=== PATIENT | female | born 1970 | race Caucasian/White ===

== ENCOUNTER 2016-03-30 21:07 | Emergency (ER) | payer MEDICAID ==
--- NOTE | 2016-03-30 21:18 | ER Document Report ---
ED Medical Screen (RME) - General Stated Complaint: FALL/LEFT LEG INJURY Notes: Patient fell striking her left knee on the couch. Pain to that area since. I greeted and performed a rapid initial assessment of this patient. Comprehensive ED assessment and evaluation of the patient, analysis of test results and completion of the medical decision making process will be conducted by additional ED providers. TRAVEL OUTSIDE OF THE [place] IN LAST 30 DAYS: No - Related Data Allergies/Adverse Reactions: morphine [Morphine] Allergy (Verified 10/30/15 00:13) nitrofurantoin [From Macrobid] Allergy (Verified 05/17/15 17:28) nitrofurantoin macrocrystalline [From Macrobid] Allergy (Verified 05/17/15 17:28 ) Sulfa (Sulfonamide Antibiotics) Allergy (Verified 05/17/15 17:28) sulfamethoxazole [From Bactrim] Allergy (Verified 05/17/15 17:28) trimethoprim [From Bactrim] Allergy (Verified 05/17/15 17:28) Past Medical History - Past Medical History Cardiac Medical History: Reports: Hx Hypertension Endocrine Medical History: Reports: Hx Diabetes Mellitus Type 2 GI Medical History: Reports: Hx Ulcer Past Surgical History: Reports: Hx Abdominal Surgery - GBP, Hx Cholecystectomy, Hx Gastric Bypass Surgery, Hx Tonsillectomy - Immunizations Immunizations up to date: Yes Hx Diphtheria, Pertussis, Tetanus Vaccination: Yes
[2016-03-30] MEDS ORDERED: KETOROLAC TROMETHAMINE 60 MG/2 ML SDV IM ONE (22:31)
--- NOTE | 2016-03-30 22:33 | ER Document Report ---
HPI - HPI Patient complains to provider of: knee pain Pain Level: 5 Context: Patient is a 46 year old female who presents to the ED complaining of left knee pain s/p trip and fall on 03/29 evening. Patient says she tripped over a toy and landed on the left knee on the medial aspect. She has 4/5 pain at rest and 5/5 pain with ambulation. She says she has not taken anything at home for pain b/c they didnt have any APAP or ibuprofen. Otherwise she has been icing it in the ED. Has not had any previous operation/injury to this knee. has been able to ambulate and bear weight Denies [facility] PCP is Dr. Joiner - REPRODUCTIVE Reproductive: DENIES: : - DERM Skin Color: Normal Past Medical History - General Information source: Patient - Social History Smoking Status: Unknown if Ever Smoked Family History: CAD Patient has suicidal ideation: No Patient has homicidal ideation: No - Past Medical History Cardiac Medical History: Reports: Hx Hypertension Endocrine Medical History: Reports: Hx Diabetes Mellitus Type 2 Renal/ Medical History: Denies: Hx Peritoneal Dialysis GI Medical History: Reports: Hx Ulcer Past Surgical History: Reports: Hx Abdominal Surgery - GBP, Hx Cholecystectomy, Hx Gastric Bypass Surgery, Hx Tonsillectomy - Immunizations Immunizations up to date: Yes Hx Diphtheria, Pertussis, Tetanus Vaccination: Yes Vertical Provider Document - CONSTITUTIONAL Agree With Documented VS: Yes Exam Limitations: No Limitations General Appearance: WD/WN, Mild Distress - INFECTION CONTROL TRAVEL OUTSIDE OF THE [place] IN LAST 30 DAYS: No - CARDIOVASCULAR Pulses: Normal: Dorsalis pedis Notes: Capillary refill < 2 seconds in ble digits - MUSCULOSKELETAL/EXTREMETIES Musculoskeletal/Extremeties: MAEW, FROM, Non-Tender, Tender - tenderness to palpation over the medial aspect of the knee, No Edema, Eccymosis - mild bruising over the medial aspect of the left knee Notes: NO evidence of internal knee injury. negative ant/post draw, -valgus/varus - NEURO Level of Consciousness: Awake, Alert, Appropriate Motor/Sensory: No Motor Deficit, No Sensory Deficit Course - Re-evaluation Re-evalutation: 03/30/16 22:42 given history, PE and xray findings, low index of suspicion for fracture or dislocation. patient educated on RICE as well as use of OTC NSAIDS. can follow up with Dr Joiner as needed - Diagnostic Test Radiology reviewed: Image reviewed - No evidence of fracture, Reports reviewed - Lucency of the proximal tibia called on xray but clinical no evidence of tenderness, bruising, swelling, also not where site of trauma Discharge - Discharge Clinical Impression: Knee pain Qualifiers: Laterality: left Chronicity: acute Qualified Code(s): M25.562 - Pain in left knee Condition: Good Disposition: HOME, SELF-CARE Instructions: Ice & Elevation ([facility]), Use of [id number] Ibuprofen ([facility]), Elevation & Warmth ([facility]) Prescriptions: Ibuprofen [Motrin 800 mg Tablet] 800 mg PO Q6HP PRN #30 tab PRN Reason: Referrals: NATALIIA JOINER DO [Primary Care Provider] - Follow up as needed
[2016-03-30 22:55] VITALS: BP 125/64
== END 2016-03-30 22:52 | disposition home or self-care (01) ==
LOC: ER 21:07
DX: M25.562 Pain in left knee (principal); W01.0XXA Fall on same level from slipping, tripping and stumbling without subsequent striking against object, initial encounter; I10 Essential (primary) hypertension; E11.9 Type 2 diabetes mellitus without complications; Z90.49 Acquired absence of other specified parts of digestive tract; Z98.84 Bariatric surgery status
CPT/HCPCS: 99283; 96372; 73562; J1885

== ENCOUNTER 2016-04-04 05:10 | Emergency (ER) | payer MEDICAID ==
[2016-04-04] MEDS ORDERED: IPRATROPIUM/ALBUTEROL 0.5-2.5 MG/3 ML AMPUL NEB ONE (05:26)
[2016-04-04] MEDS ORDERED: PREDNISONE 20 MG TABLET PO ONE (06:55)
[2016-04-04] MEDS ORDERED: ALBUTEROL SULFATE 0.083% NEB 2.5 MG/3 ML AMPUL NEB ONE (06:55)
--- NOTE | 2016-04-04 07:00 | ER Document Report ---
ED Respiratory Problem - General Information source: Patient TRAVEL OUTSIDE OF THE [place] IN LAST 30 DAYS: No - HPI Patient complains to provider of: Other - Difficulty Breathing Onset: Last week Duration: Continuous Context: Smoker Cough: Productive Sputum amount: Small Associated symptoms: Cough, Difficulty breathing, Wheezing - General Chief Complaint: Shortness Of Breath Stated Complaint: DIFFICULTY BREATHING Notes: Patient is a 46-year-old female, who is a current smoker, presenting to the emergency department with concerns of difficulty breathing. Patient has had a cough for the past few weeks, and she has been wheezing for the past week. Patient admits to productive cough with a small amount of sputum. Patient denies fever or any other symptoms at this time. Patient says that she feels better since receiving a breathing treatment here in the emergency department. (HORTENSIA DOWD) - Related Data Allergies/Adverse Reactions: morphine [Morphine] Allergy (Verified 04/04/16 05:11) nitrofurantoin [From Macrobid] Allergy (Verified 04/04/16 05:11) nitrofurantoin macrocrystalline [From Macrobid] Allergy (Verified 04/04/16 05:11 ) Sulfa (Sulfonamide Antibiotics) Allergy (Verified 04/04/16 05:11) sulfamethoxazole [From Bactrim] Allergy (Verified 04/04/16 05:11) trimethoprim [From Bactrim] Allergy (Verified 04/04/16 05:11) Past Medical History - General Information source: Patient - Social History Smoking Status: Current Every Day Smoker Cigarette use (# per day): Yes Lives with: Spouse/Significant other Family History: CAD Patient has suicidal ideation: No Patient has homicidal ideation: No - Past Medical History Cardiac Medical History: Reports: Hx Hypertension Pulmonary Medical History: Reports: Hx Asthma Endocrine Medical History: Reports: Hx Diabetes Mellitus Type 2 GI Medical History: Reports: Hx Ulcer Past Surgical History: Reports: Hx Abdominal Surgery - GBP, Hx Cholecystectomy, Hx Gastric Bypass Surgery, Hx Tonsillectomy - Immunizations Immunizations up to date: Yes Hx Diphtheria, Pertussis, Tetanus Vaccination: Yes Review of Systems - Review of Systems Constitutional: No symptoms reported EENT: No symptoms reported Cardiovascular: No symptoms reported Respiratory: See HPI, Cough, Wheezing Gastrointestinal: No symptoms reported Genitourinary: No symptoms reported Female Genitourinary: No symptoms reported Musculoskeletal: No symptoms reported Skin: No symptoms reported Hematologic/Lymphatic: No symptoms reported Neurological/Psychological: No symptoms reported -: Yes All other systems reviewed and negative Physical Exam - General General appearance: Alert - HEENT Head: Normocephalic, Atraumatic Eyes: Normal Pupils: PERRL - Respiratory Respiratory status: No respiratory distress Chest status: Nontender Breath sounds: Rhonchi, Wheezing - Diffuse wheezes - Cardiovascular Rhythm: Regular Heart sounds: Normal auscultation Murmur: No - Abdominal Inspection: Normal Distension: No distension Bowel sounds: Normal Tenderness: Nontender - Back Back: Normal, Nontender - Extremities General upper extremity: Normal inspection General lower extremity: Normal inspection - Neurological Neuro grossly intact: Yes Cognition: Normal Alize Coma Scale Eye Opening: Spontaneous Stryker Coma Scale Verbal: Oriented Stryker Coma Scale Motor: Obeys Commands Stryker Coma Scale Total: 15 Speech: Normal - Psychological Associated symptoms: Normal affect, Normal mood - Skin Skin Temperature: Warm Skin Moisture: Dry Skin Color: Normal Discharge - Discharge Clinical Impression: Bronchitis with bronchospasm Condition: Stable Disposition: HOME, SELF-CARE Additional Instructions: Bronchitis with Bronchospasm (Wheezing): You have bronchitis with bronchospasm (wheezing). Sometimes people develop wheezing with a chest cold. This occurs either because of an underlying tendency toward asthma or because the virus itself irritates the bronchial tubes. This irritation causes cough, shortness of breath, and wheezing. Emergency treatment of bronchospasm may include adrenaline shots or bronchodilator aerosol. You may feel lightheaded and have a rapid pulse for an hour or two. Rest and get plenty of fluids. At home, we'll treat you with a bronchodilator inhaler. Corticosteroids may be required for some patients. Until you recover, avoid chemical fumes, dusts, pollens, and exercising in very cold or dry air. If you smoke, stop now! Most cases of bronchitis get better without antibiotics. We prescribe antibiotics when we believe bacteria are damaging your airways, or if there's high risk the bronchitis will worsen into pneumonia. Increase your fluid intake. A cool mist humidifier may make your lungs more comfortable. An expectorant (cough medicine that loosens phlegm) can help. Repeated episodes of bronchitis and bronchospasm may result in lung damage -- for example, chronic bronchitis, recurrent pneumonias, or emphysema. If you develop a fever, increased wheezing, chest pain, or severe shortness of breath, you should contact the doctor immediately. START THE PREDNISONE TOMORROW. USE YOUR ALBUTEROL INHALERS FOR WHEEZING. DRINK PLENTY OF FLUIDS. TRY ROBITUSSIN-DM FOR COUGH. STOP SMOKING. FOLLOW UP WITH YOUR DOCTOR IF NOT IMPROVING. Prescriptions: Prednisone [Deltasone 10 mg Tablet] 10 mg PO ASDIR PRN #21 tablet PRN Reason: Scribe Attestation: 04/04/16 07:58 I personally performed the services described in the documentation, reviewed and edited the documentation which was dictated to the scribe in my presence, and it accurately records my words and actions. (TANA FREDERICK) Scribe Documentation - Scribe Written by Montse:: Hortensia Dowd 04/04/2016 0655 acting as scribe for :: Dante
[2016-04-04 07:41] VITALS: BP 138/95
== END 2016-04-04 08:05 | disposition home or self-care (01) ==
LOC: ER 05:10
DX: J40 Bronchitis, not specified as acute or chronic (principal); J45.909 Unspecified asthma, uncomplicated; R05 Cough; F17.210 Nicotine dependence, cigarettes, uncomplicated; I10 Essential (primary) hypertension; E11.9 Type 2 diabetes mellitus without complications; Z98.84 Bariatric surgery status
CPT/HCPCS: 94640 ×2; 99284; J7512; J7620

== ENCOUNTER 2016-04-05 06:41 | Inpatient (IN) | payer MEDICAID ==
--- NOTE | 2016-04-05 07:10 | ER Document Report ---
ED Respiratory Problem - General Mode of Arrival: Medic Information source: Patient TRAVEL OUTSIDE OF THE [place] IN LAST 30 DAYS: No - HPI Patient complains to provider of: Short of breath Onset: Other - last night Context: Hx asthma At home treatment: Inhaled steroids Associated symptoms: Other - see above <EUGENE BILLINGS - Last Filed: 04/05/16 07:18> <TANA FREDERICK - Last Filed: 04/05/16 08:50> - General Chief Complaint: Shortness Of Breath Stated Complaint: SHORTNESS OF BREATH Notes: 46 year old female with history of asthma and smoking presents to the ED via EMS complaining of difficulty breathing that worsened last night. Patient was seen in the ED yesterday for similar symptoms and was discharged after improving under instructions to take prednisone and continue inhaler treatment at home. Patient's states that the patient improved the 3 hours after leaving the ED, but her shortness of breath worsened last night. Patient admits to using the inhaler at home but to no relief. Patient is additionally complaining of wheezing and pain associated with breathing. Patient explains that the breathing treatment given by EMS have not helped. EMS reports that patient was at 94% on room air. (EUGENE BILLINGS) - Related Data Allergies/Adverse Reactions: morphine [Morphine] Allergy (Verified 04/04/16 05:11) nitrofurantoin [From Macrobid] Allergy (Verified 04/04/16 05:11) nitrofurantoin macrocrystalline [From Macrobid] Allergy (Verified 04/04/16 05:11 ) Sulfa (Sulfonamide Antibiotics) Allergy (Verified 04/04/16 05:11) sulfamethoxazole [From Bactrim] Allergy (Verified 04/04/16 05:11) trimethoprim [From Bactrim] Allergy (Verified 04/04/16 05:11) Past Medical History - General Information source: Patient - Social History Smoking Status: Current Every Day Smoker Family History: CAD - Past Medical History Cardiac Medical History: Reports: Hx Hypertension Pulmonary Medical History: Reports: Hx Asthma Endocrine Medical History: Reports: Hx Diabetes Mellitus Type 2 GI Medical History: Reports: Hx Ulcer Past Surgical History: Reports: Hx Abdominal Surgery - GBP, Hx Cholecystectomy, Hx Gastric Bypass Surgery, Hx Tonsillectomy - Immunizations Immunizations up to date: Yes Hx Diphtheria, Pertussis, Tetanus Vaccination: Yes <EUGENE BILLINGS - Last Filed: 04/05/16 07:18> Review of Systems - Review of Systems Constitutional: No symptoms reported EENT: No symptoms reported Cardiovascular: No symptoms reported Respiratory: See HPI, Hurts to breathe, Short of breath, Wheezing Gastrointestinal: No symptoms reported Genitourinary: No symptoms reported Female Genitourinary: No symptoms reported Musculoskeletal: No symptoms reported Skin: No symptoms reported Hematologic/Lymphatic: No symptoms reported Neurological/Psychological: No symptoms reported -: Yes All other systems reviewed and negative <EUGENE BILLINGS - Last Filed: 04/05/16 07:18> Physical Exam - General General appearance: Alert In distress: None - HEENT Head: Normocephalic, Atraumatic Eyes: Normal Extraocular movements intact: Yes Pupils: PERRL - Respiratory Respiratory status: Retractions, Tachypnea Breath sounds: Rhonchi - diffuse bilaterally, Wheezing - diffuse bilaterally - Cardiovascular Rhythm: Regular, Tachycardia Heart sounds: Normal auscultation - Abdominal Inspection: Normal - Back Back: Normal - Extremities General upper extremity: Normal inspection, Normal ROM General lower extremity: Normal inspection, Normal ROM - Neurological Neuro grossly intact: Yes - Psychological Associated symptoms: Normal affect, Normal mood - Skin Skin Temperature: Warm Skin Moisture: Dry Skin Color: Normal <EUGENE BILLINGS - Last Filed: 04/05/16 07:18> Course <EUGENE BILLINGS - Last Filed: 04/05/16 07:18> - Laboratory Result Diagrams: 04/05/16 07:50 04/05/16 07:50 - Diagnostic Test Radiology reviewed: Image reviewed, Reports reviewed - Left basilar airspace disease, left pulmonary nodule - Consults Dr. Freed Time consulted: 08:35 Consulted provider: will come to ER <TANA FREDERICK - Last Filed: 04/05/16 08:50> - Re-evaluation Re-evalutation: 04/05/16 08:03 Patient told the nurse she thought she was going into alcohol withdrawal as she has been binge drinking recently. He drank heavily yesterday which probably contributed to her worsening respiratory status and possibly affected her use of the albuterol inhalers. (TANA FREDERICK) - Vital Signs Vital signs: Temp Pulse Resp BP Pulse Ox 99.3 F 103 H 24 H 145/89 H 96 04/05/16 06:47 04/05/16 06:47 04/05/16 06:47 04/05/16 06:47 04/05/16 06:47 (TANA FREDERICK) - Laboratory Laboratory results interpreted by me: 04/05/16 07:50 WBC 13.3 H RDW 15.5 H Seg Neutrophils % 85.4 H Lymphocytes % 10.9 L Absolute Neutrophils 11.4 H Discharge <EUGENE BILLINGS - Last Filed: 04/05/16 07:18> - Discharge Admitting Provider: Hospitalist Unit Admitted: IMCU <TANA FREDERICK - Last Filed: 04/05/16 08:50> - Discharge Clinical Impression: Obstructive chronic bronchitis with exacerbation, Left basilar airspace disease , Nodule of left lung Type 2 diabetes mellitus with hyperglycemia Qualifiers: Diabetes mellitus terminal carman insulin use: without terminal carman use Qualified Code(s ): E11.65 - Type 2 diabetes mellitus with hyperglycemia Condition: Stable Disposition: ADMITTED INPATIENT Scribe Documentation - Scribe Written by Scribe:: Montse Quinonez, 04/05/2016 07:29 acting as scribe for :: Dante <EUGENE BILLINGS - Last Filed: 04/05/16 07:18>
[2016-04-05] MEDS ORDERED: ALBUTEROL SULFATE 0.083% NEB 2.5 MG/3 ML AMPUL NEB ONE (07:11)
[2016-04-05] MEDS ORDERED: IPRATROPIUM/ALBUTEROL 0.5-2.5 MG/3 ML AMPUL NEB ONE ×2 (07:11→08:48)
[2016-04-05] MEDS ORDERED: MAGNESIUM SULFATE/D5W 100 ML IV ONE (07:11)
[2016-04-05] MEDS ORDERED: NORMAL SALINE 1000 ML 1,000 ML IV ONE (07:12)
[2016-04-05] MEDS ORDERED: LORAZEPAM INJ 2 MG/1 ML VIAL IV ONE (08:04)
[2016-04-05 08:20] LABS: ABSOLUTE LYMPHOCYTES (AUTO) 1.5 10^3/uL (0.5-4.7); ABSOLUTE MONOCYTES (AUTO) 0.4 10^3/uL (0.1-1.4); ABSOLUTE NEUT (AUTO) 11.4 10^3/uL (1.7-8.2); BASOPHILS % (AUTO) 0.2 % (0-2); EOSINOPHILS % (AUTO) 0.2 % (0-6); HEMOGLOBIN 12.8 g/dL (12.0-15.5); HGB HCT DIFFERENCE -0.6; LYMPHOCYTES % (AUTO) 10.9 % (13-45); MEAN CORPUSCULAR HGB CONC 32.8 g/dL (32.0-36.0); MEAN CORPUSCULAR VOLUME 92 fl (80-97); MONOCYTES % (AUTO) 3.3 % (3-13); RED BLOOD COUNT 4.25 10^6/uL (3.72-5.28); RED CELL DISTRIBUTION WIDTH 15.5 % (11.5-14.0); SEGMENTED NEUTROPHILS % (AUTO) 85.4 % (42-78); WHITE BLOOD COUNT 13.3 10^3/uL (4.0-10.5)
[2016-04-05 08:40] LABS: ALANINE AMINOTRANSFERASE 28 U/L (9-52); ALBUMIN 3.9 g/dL (3.5-5.0); ALKALINE PHOSPHATASE 102 U/L (38-126); ANION GAP 13 (5-19); ASPARTATE AMINO TRANSFERASE 26 U/L (14-36); BLOOD UREA NITROGEN 6 mg/dL (7-20); CALCIUM 9.1 mg/dL (8.4-10.2); CARBON DIOXIDE 23 mmol/L (22-30); CHLORIDE 101 mmol/L (98-107); CREATININE RESULT 0.54 mg/dL (0.52-1.25); GLUCOSE 223 mg/dL (75-110); POTASSIUM 4.2 mmol/L (3.6-5.0); SODIUM 137.2 mmol/L (137-145); TOTAL PROTEIN 6.4 g/dL (6.3-8.2)
[2016-04-05 08:43] LABS: ALCOHOL < 10 mg/dL (NONE DETECTED)
[2016-04-05] MEDS ORDERED: LEVOFLOXACIN 750 MG/D5W RTU 150 ML IV ONE (08:43)
[2016-04-05] MEDS ORDERED: CEFTRIAXONE 1 GM/D5W RTU 50 ML IV ONE (08:43)
[2016-04-05] MEDS ORDERED: NORMAL SALINE 1000 ML 1,000 ML IV PRN (09:30)
[2016-04-05 10:58] LABS: APPEARANCE,URINE CLEAR; BILIRUBIN,URINE NEGATIVE (NEGATIVE); GLUCOSE, URINE >=500 mg/dL (NEGATIVE); KETONES,URINE NEGATIVE (NEGATIVE); LEUKOCYTE ESTERASE,URINE NEGATIVE (NEGATIVE); NITRITE,URINE NEGATIVE (NEGATIVE); PROTEIN,URINE NEGATIVE (NEGATIVE); URINE SPECIFIC GRAVITY 1.017; UROBILINOGEN,URINE NEGATIVE mg/dL (<2.0)
[2016-04-05 11:23] LABS: URINE BARBITURATES SCREEN NEGATIVE; URINE METHADONE SCREEN NEGATIVE; URINE PHENCYCLIDINE SCREEN NEGATIVE
[2016-04-05] MEDS ORDERED: LISINOPRIL 10 MG TABLET PO ONE (12:00)
[2016-04-05] MEDS ORDERED: GUAIFENESIN 600 MG TABLET.SA PO ONE (12:00)
[2016-04-05] MEDS ORDERED: FOLIC ACID 1 MG TABLET PO ONE (12:00)
[2016-04-05] MEDS: IPRATROPIUM/ALBUTEROL 0.5-2.5 MG/3 ML AMPUL NEB SCH ×3 (12:55→20:30)
[2016-04-05] MEDS ORDERED: THIAMINE HCL 100 MG, FOLIC ACID 1 MG in NORMAL SALINE 50 ML IV ONE (13:00)
[2016-04-05] MEDS ORDERED: NICOTINE 21 MG/24 HR PATCH.TD24 TD ONE (13:00)
[2016-04-05] MEDS: DIAZEPAM 5 MG TABLET PO SCH ×3 (13:13→21:37)
[2016-04-05] MEDS: LORAZEPAM INJ 2 MG/1 ML VIAL IV PRN ×3 (13:13→21:36)
[2016-04-05] MEDS: MAGNESIUM OXIDE 400 MG TABLET PO SCH ×2 (13:13→17:20)
[2016-04-05] MEDS: HEPARIN SOD (PORCINE) 5,000 UNIT/ML 1 ML SYRINGE SUBCUT SCH ×2 (13:14→21:37)
[2016-04-05] MEDS: CALCIUM CARBONATE 500 MG TAB.CHEW PO SCH ×3 (13:14→21:36)
--- NOTE | 2016-04-05 15:07 | PSYCHOLOGICAL NOTE ---
Psych Note - Psych Note Psych Note: Patient presented to [facility] ED with history of asthma and smoking presents to the ED via EMS complaining of difficulty breathing that worsened last night. Patient states that she does not know why she is at the hospital. She states that last night her boyfriend told her to "let's go to the hospital." Patient states that she drinks every day and receives alcohol abuse services through [facility]. She states that she's never been to rehabilitation. Patient denies suicidal homicidal ideation area patient denies auditory and visual hallucinations. Patient is semi-alert with frequent bouts of falling asleep; however is easily aroused. Patient is orientated to person place and time however is either unwilling or unable to identify circumstance. Mood is dysphoric with flat affect. Patient denies suicidal homicidal ideation. Patient denies auditory visual hallucinations; no delusions are noted. Thought process is currently disorganized. Conversational speech is with low tone broken rate. No eye contact was made. Intellectual abilities appear to be with an average range. Attention and concentration are impaired. Insight, judgment, and impulse control are currently impaired. 291.9 (F10.99) Unspecified Alcohol-Related Disorder Impression\\plan; patient is currently unwilling or unable to identify recent she is in the hospital. Patient disclosed that she has alcohol abuse issue. Disclosing she drinks every day. Patient receives outpatient services through [facility]. Full evaluation is unable to be completed until more information is received through patient and collaterals. Reevaluation will be conducted. Dr. Arias was consulted on this patient; attending physician is with in agreement with recommendations and disposition
--- NOTE | 2016-04-05 15:10 | PDOC H&P ---
History of Present Illness Admission Date/PCP: 04/05/16 09:22 NATALIIA PAN History of Present Illness: JOVANNI RENTERIA is a 46 year old female who presents to the emergency department with cough. Patient purchased coughing up white if she can cough anything up at all. She denies any hemoptysis. She reports she's had some shortness of breath which she presented to the emergency room yesterday for however was discharged and subsequently has returned. Patient had a breathing treatment here in the emergency department which improved her shortness of breath. Patient then reports that her last alcohol beverage was about 13 hours ago she feels like she starting to withdraw. Patient is referred to the hospitalist service for COPD exacerbation/pneumonia and alcohol withdrawal Past Medical History Past Medical History: Borderline diabetes mellitus, hypertension Cardiac Medical History: Reports: Hypertension Pulmonary Medical History: Reports: Asthma Endocrine Medical History: Reports: Diabetes Mellitus Type 2 Past Surgical History Past Surgical History: Reports: Cholecystectomy, Gastric Bypass Surgery, Tonsillectomy Social History Smoking Status: Current Every Day Smoker Cigarettes Packs Per Day: 1 Number of Years Smokin Frequency of Alcohol Use: Heavy - Patient reports she drinks all day every day Hx Recreational Drug Use: No Drugs: None Hx Prescription Drug Abuse: No - Advance Directive Resuscitation Status: Full Code Surrogate healthcare decision maker:: Drew Dave, significant other Family History Family History: CAD, Malignancy Parental Family History Reviewed: Yes Children Family History Reviewed: Yes Sibling(s) Family History Reviewed.: Yes Medication/Allergy Home Medications: Epinephrine [Epipen 2-Miko] 0.3 mg IM PRN PRN 04/05/16 Ibuprofen [Motrin 800 mg Tablet] 800 mg PO Q6HP PRN 04/05/16 Lisinopril [Prinivil] 20 mg PO DAILYP PRN 04/05/16 Allergies/Adverse Reactions: morphine [Morphine] Allergy (Verified 04/04/16 05:11) nitrofurantoin [From Macrobid] Allergy (Verified 04/04/16 05:11) nitrofurantoin macrocrystalline [From Macrobid] Allergy (Verified 04/04/16 05:11 ) Sulfa (Sulfonamide Antibiotics) Allergy (Verified 04/04/16 05:11) sulfamethoxazole [From Bactrim] Allergy (Verified 04/04/16 05:11) trimethoprim [From Bactrim] Allergy (Verified 04/04/16 05:11) Review of Systems Constitutional: PRESENT: fatigue. ABSENT: chills, fever(s), headache(s), weight gain, weight loss Eyes: ABSENT: visual disturbances Ears: ABSENT: hearing changes Cardiovascular: ABSENT: chest pain, dyspnea on exertion, edema, orthropnea, palpitations Respiratory: PRESENT: cough, dyspnea, sputum. ABSENT: hemoptysis Gastrointestinal: ABSENT: abdominal pain, constipation, diarrhea, hematemesis, hematochezia, melena, nausea, vomiting Genitourinary: ABSENT: dysuria, hematuria Musculoskeletal: ABSENT: joint swelling Integumentary: ABSENT: rash, wounds Neurological: PRESENT: tremor(s). ABSENT: abnormal gait, abnormal speech, confusion, dizziness, focal weakness, syncope Psychiatric: PRESENT: other - Alcohol withdrawal. ABSENT: anxiety, depression, homidical ideation, suicidal ideation Endocrine: ABSENT: cold intolerance, heat intolerance, polydipsia, polyuria Hematologic/Lymphatic: ABSENT: easy bleeding, easy bruising Physical Exam Vital Signs: Temp Pulse Resp BP Pulse Ox 99.3 F 103 H 27 H 145/77 H 95 04/05/16 06:47 04/05/16 06:47 04/05/16 09:01 04/05/16 09:01 04/05/16 09:01 General appearance: PRESENT: mild distress, well-developed, well-nourished Head exam: PRESENT: atraumatic, normocephalic Eye exam: PRESENT: conjunctiva pink, EOMI, PERRLA. ABSENT: scleral icterus Ear exam: PRESENT: normal external ear exam Mouth exam: PRESENT: moist, tongue midline Neck exam: ABSENT: carotid bruit, JVD, lymphadenopathy, thyromegaly, tracheal deviation Respiratory exam: PRESENT: rhonchi - Bilateral. ABSENT: crackles, rales, wheezes Cardiovascular exam: PRESENT: RRR, +S1, +S2. ABSENT: diastolic murmur, rubs, systolic murmur Pulses: PRESENT: normal dorsalis pedis pul Vascular exam: PRESENT: normal capillary refill GI/Abdominal exam: PRESENT: hyperactive bowel sounds, soft. ABSENT: distended, firm, guarding, mass, Jameson's sign, organolmegaly, rebound, rigid, tenderness Rectal exam: PRESENT: deferred Extremities exam: PRESENT: full ROM. ABSENT: calf tenderness, clubbing, pedal edema Neurological exam: PRESENT: alert, awake, oriented to person, oriented to place , oriented to time, oriented to situation, CN II-XII grossly intact. ABSENT: motor sensory deficit Psychiatric exam: PRESENT: anxious, depressed. ABSENT: homicidal ideation, suicidal ideation Focused psych exam: PRESENT: restlessness Skin exam: PRESENT: dry, intact, warm. ABSENT: cyanosis, rash Results Impressions: Chest X-Ray 04/05/16 07:06 IMPRESSION: Vague airspace opacity noted in the left lung base which could represent an area of atelectasis, infiltrate, or edema. 1.2 cm nodule opacity in the lateral left lung base which could which may have been present on prior studies this concerning for underlying pulmonary nodule. Assessment & Plan - Diagnosis (1) Pneumonia Qualifiers: Pneumonia type: due to unspecified organism Laterality: bilateral Lung location: unspecified part of lung Qualified Code(s): J18.9 - Pneumonia, unspecified organism Is this a current diagnosis for this admission?: YesPlan: Place patient on Levaquin and Rocephin. Sputum culture pending. Steroids for cough. Mucinex. (2) Alcohol abuse Is this a current diagnosis for this admission?: YesPlan: Thiamine, folic acid, and scheduled Valium. (3) COPD with exacerbation Is this a current diagnosis for this admission?: YesPlan: Place on Solu-Medrol and scheduled unless treatments (4) Pulmonary nodule, left Is this a current diagnosis for this admission?: YesPlan: Will check CTA. Patient has family history of lung cancer and does continue to smoke. (5) HTN (hypertension) Is this a current diagnosis for this admission?: YesPlan: Continue lisinopril. (6) Tobacco dependency Is this a current diagnosis for this admission?: YesPlan: Advised to stop. Given nicotine patch. Counseling greater than 3 minutes. (7) Borderline diabetes mellitus Is this a current diagnosis for this admission?: YesPlan: Patient has a hemoglobin A1c of 6. She takes no medication for diabetes mellitus. Patient reports having previously been diabetic before her gastric bypass. - Time Time Spent: 50 to 70 Minutes Medications reviewed and adjusted accordingly: Yes Anticipated discharge: Other - Rehabilitation for substance abuse - Inpatient Certification Based on my medical assessment, after consideration of the patient's comorbidities, presenting symptoms, or acuity I expect that the services needed warrant INPATIENT care.: Yes I certify that my determination is in accordance with my understanding of Medicare's requirements for reasonable and necessary INPATIENT services [42 CFR 412.3e].: Yes Medical Necessity: Failure to Improve With Outpatient Therapy, Need for Nebulizer Therapy and Monitoring of Response Post Hospital Care: D/C Chief Operator Reformer Documentation
[2016-04-05] MEDS ORDERED: METFORMIN HCL 500 MG TABLET PO SCH (16:00)
[2016-04-05] MEDS: MULTIVITAMINS W-IRON TABLET, CHEWABLE PO SCH (17:19)
[2016-04-05] MEDS: LANSOPRAZOLE 30 MG TAB.RAP.DR PO SCH (17:19)
[2016-04-05] MEDS: ACETAMINOPHEN 325 MG TABLET PO PRN ×2 (17:20→21:37)
[2016-04-05] MEDS: GUAIFENESIN 600 MG TABLET.SA PO SCH (21:36)
[2016-04-06] MEDS: LORAZEPAM INJ 2 MG/1 ML VIAL IV PRN ×4 (02:14→14:17)
[2016-04-06] MEDS: DIAZEPAM 5 MG TABLET PO SCH ×2 (02:14→06:18)
[2016-04-06] MEDS: ACETAMINOPHEN 325 MG TABLET PO PRN ×4 (02:20→14:18)
[2016-04-06 04:38] LABS: ABSOLUTE LYMPHOCYTES (AUTO) 2.6 10^3/uL (0.5-4.7); ABSOLUTE MONOCYTES (AUTO) 0.6 10^3/uL (0.1-1.4); ABSOLUTE NEUT (AUTO) 8.6 10^3/uL (1.7-8.2); BASOPHILS % (AUTO) 0.1 % (0-2); EOSINOPHILS % (AUTO) 0.2 % (0-6); HEMATOCRIT 35.1 % (36.0-47.0); HEMOGLOBIN 11.1 g/dL (12.0-15.5); HGB HCT DIFFERENCE -1.8; LYMPHOCYTES % (AUTO) 22.1 % (13-45); MEAN CORPUSCULAR HEMOGLOBIN 29.8 pg (27.0-33.4); MEAN CORPUSCULAR HGB CONC 31.7 g/dL (32.0-36.0); MEAN CORPUSCULAR VOLUME 94 fl (80-97); MONOCYTES % (AUTO) 5.1 % (3-13); RED BLOOD COUNT 3.74 10^6/uL (3.72-5.28); RED CELL DISTRIBUTION WIDTH 15.7 % (11.5-14.0); SEGMENTED NEUTROPHILS % (AUTO) 72.5 % (42-78); WHITE BLOOD COUNT 11.8 10^3/uL (4.0-10.5)
[2016-04-06 04:57] LABS: ANION GAP 8 (5-19); BLOOD UREA NITROGEN 9 mg/dL (7-20); CALCIUM 8.4 mg/dL (8.4-10.2); CARBON DIOXIDE 24 mmol/L (22-30); CHLORIDE 107 mmol/L (98-107); CREATININE RESULT 0.49 mg/dL (0.52-1.25); GLUCOSE 114 mg/dL (75-110); POTASSIUM 3.9 mmol/L (3.6-5.0); SODIUM 138.7 mmol/L (137-145)
[2016-04-06] MEDS: HEPARIN SOD (PORCINE) 5,000 UNIT/ML 1 ML SYRINGE SUBCUT SCH ×2 (05:44→13:08)
[2016-04-06] MEDS: LANSOPRAZOLE 30 MG TAB.RAP.DR PO SCH (06:18)
[2016-04-06] MEDS: CALCIUM CARBONATE 500 MG TAB.CHEW PO SCH ×2 (07:37→11:08)
[2016-04-06] MEDS: IPRATROPIUM/ALBUTEROL 0.5-2.5 MG/3 ML AMPUL NEB SCH ×2 (08:50→13:05)
[2016-04-06] MEDS: GUAIFENESIN 600 MG TABLET.SA PO SCH (09:44)
[2016-04-06] MEDS: MAGNESIUM OXIDE 400 MG TABLET PO SCH ×2 (09:44→13:07)
[2016-04-06] MEDS: MULTIVITAMINS W-IRON TABLET, CHEWABLE PO SCH (09:45)
[2016-04-06] MEDS ORDERED: THIAMINE HCL 100 MG TABLET PO SCH (10:00)
[2016-04-06] MEDS ORDERED: FOLIC ACID 1 MG TABLET PO SCH (10:00)
[2016-04-06] MEDS ORDERED: NICOTINE 21 MG/24 HR PATCH.TD24 TD SCH (10:00)
[2016-04-06] MEDS ORDERED: CEFTRIAXONE 1 GM/D5W RTU 1 GM/50 ML RTUPB IV SCH (10:00)
[2016-04-06] MEDS ORDERED: LEVOFLOXACIN 750 MG/D5W RTU 750 MG/150 ML RTUPB IV SCH (10:00)
[2016-04-06] MEDS ORDERED: LISINOPRIL 10 MG TABLET PO SCH (10:00)
[2016-04-06] MEDS ORDERED: PREDNISONE 20 MG TABLET PO ONE (10:30)
[2016-04-06] MEDS ORDERED: LISINOPRIL 10 MG TABLET PO ONE (10:30)
[2016-04-06] MEDS ORDERED: LEVOFLOXACIN 750 MG TABLET PO ONE (11:00)
[2016-04-06 11:36] VITALS: BP 130/55
[2016-04-06] MEDS ORDERED: DIAZEPAM 5 MG TABLET PO SCH (12:00)
[2016-04-06] MEDS ORDERED: PREDNISONE 20 MG TABLET PO SCH (18:00)
--- NOTE | 2016-04-06 19:36 | PDOC DISCHARGE SUMMARY ---
General - Admit/Disc Date/PCP Admission Date/Primary Care Provider: 04/05/16 09:30 NATALIIA PAN Discharge Date: 04/06/16 - Discharge Diagnosis (1) Left against medical advice Is this a current diagnosis for this admission?: Yes (2) Pneumonia Is this a current diagnosis for this admission?: Yes (3) Alcohol abuse Is this a current diagnosis for this admission?: Yes (4) COPD with exacerbation Is this a current diagnosis for this admission?: Yes (5) Pulmonary nodule, left Is this a current diagnosis for this admission?: Yes (6) HTN (hypertension) Is this a current diagnosis for this admission?: Yes (7) Tobacco dependency Is this a current diagnosis for this admission?: Yes (8) Borderline diabetes mellitus Is this a current diagnosis for this admission?: Yes - Additional Information Resuscitation Status: Full Code Home Medications: Epinephrine [Epipen 2-Miko] 0.3 mg IM PRN PRN 04/05/16 Ibuprofen [Motrin 800 mg Tablet] 800 mg PO Q6HP PRN 04/05/16 Lisinopril [Prinivil] 20 mg PO DAILYP PRN 04/05/16 History of Present Illness History of Present Illness: JOVANNI RENTERIA is a 46 year old female who presents to the emergency department with cough. Patient purchased coughing up white if she can cough anything up at all. She denies any hemoptysis. She reports she's had some shortness of breath which she presented to the emergency room yesterday for however was discharged and subsequently has returned. Patient had a breathing treatment here in the emergency department which improved her shortness of breath. Patient then reports that her last alcohol beverage was about 13 hours ago she feels like she starting to withdraw. Patient is referred to the hospitalist service for COPD exacerbation/pneumonia and alcohol withdrawal Hospital Course Hospital Course: Patient was initially started on oral Valium and when necessary Ativan. She was given thiamine folic acid and multivitamin. Patient was started on steroids and antibiotics for her underlying pneumonia. CTA was performed as patient had a pulmonary nodule on chest x-ray which revealed no pulmonary embolus but pneumonia. Today patient was seen on rounds and reported that she was feeling better; however, later in the day patient approached nursing staff and reported to them that she wanted to leave. At that time patient was noted to be awake alert and oriented 4 and aware of what may possibly happen if she were to leave. Her fianc was also present with her. Patient was not given any prescriptions. Physical Exam Vital Signs: Temp Pulse Resp BP Pulse Ox 99.3 F 93 20 130/55 H 99 04/06/16 11:32 04/06/16 11:32 04/06/16 11:32 04/06/16 11:32 04/06/16 11:32 Intake & Output 04/05/16 04/06/16 04/07/16 06:59 06:59 06:59 Intake Total 2483 680 Output Total 1000 Balance 1483 680 Weight 87.4 kg Results Laboratory Results: 04/06/16 03:58 04/06/16 03:58 04/06/16 04/06/16 03:58 03:58 WBC 11.8 H RBC 3.74 Hgb 11.1 L Hct 35.1 L MCV 94 MCH 29.8 MCHC 31.7 L RDW 15.7 H Plt Count 144 L Seg Neutrophils % 72.5 Lymphocytes % 22.1 Monocytes % 5.1 Eosinophils % 0.2 Basophils % 0.1 Absolute Neutrophils 8.6 H Absolute Lymphocytes 2.6 Absolute Monocytes 0.6 Absolute Eosinophils 0.0 Absolute Basophils 0.0 Sodium 138.7 Potassium 3.9 Chloride 107 Carbon Dioxide 24 Anion Gap 8 BUN 9 Creatinine 0.49 L Est GFR ( Amer) > 60 Est GFR (Non-Af Amer) > 60 Glucose 114 H Calcium 8.4 Impressions: Chest/Abdomen CTA 04/05/16 00:00 IMPRESSION: Diffuse patchy ground-glass opacities throughout the lungs. Inflammatory or infectious. No pulmonary emboli. Chest X-Ray 04/05/16 07:06 IMPRESSION: Vague airspace opacity noted in the left lung base which could represent an area of atelectasis, infiltrate, or edema. 1.2 cm nodule opacity in the lateral left lung base which could which may have been present on prior studies this concerning for underlying pulmonary nodule. Qualifiers PATEINT BEING DISCHARGED WITH ANY OF THE FOLLOWING DIAGNOSIS?: No Plan Time Spent: Less than 30 Minutes
[2016-04-07] MEDS ORDERED: LISINOPRIL 10 MG TABLET PO SCH (10:00)
[2016-04-07] MEDS ORDERED: LEVOFLOXACIN 750 MG TABLET PO SCH (10:00)
== END 2016-04-06 15:50 | disposition left against medical advice (07) | DRG 190 ==
LOC: ER 06:41 → EH 09:22 → UNDOADMIN 09:22 → EH 09:30 → 5 12:05
PROVIDERS: ADMIT Family Medicine; ATTEND Family Medicine
PROC: 3E0F73Z Introduction of Anti-inflammatory into Respiratory Tract, Via Natural or Artificial Opening (ICD-10-PCS; principal; 2016-04-05)
DX: J44.1 Chronic obstructive pulmonary disease with (acute) exacerbation (principal); J18.9 Pneumonia, unspecified organism; F10.239 Alcohol dependence with withdrawal, unspecified; R91.1 Solitary pulmonary nodule; R73.03 Prediabetes; I10 Essential (primary) hypertension; F17.210 Nicotine dependence, cigarettes, uncomplicated; J45.909 Unspecified asthma, uncomplicated; Z90.49 Acquired absence of other specified parts of digestive tract; Z98.84 Bariatric surgery status; Z79.899 Other long term (current) drug therapy; Z82.49 Family history of ischemic heart disease and other diseases of the circulatory system; Z80.9 Family history of malignant neoplasm, unspecified; Z88.6 Allergy status to analgesic agent; Z88.3 Allergy status to other anti-infective agents; Z88.2 Allergy status to sulfonamides
CPT/HCPCS: 36415; 71010; 71275; 80048; 80053; 80307; 81001; 83036; 83735; 85025; 87040; 87070; 87205; 94640; 96365; 96368; 96375; 99285; J0696; J1644; J1956; J2060; J3411; J3475; J3490; J7030; J7512; J7620

== ENCOUNTER 2016-04-07 20:05 | Emergency (ER) | payer MEDICAID | END 2016-04-07 23:07 | disposition left against medical advice (07) | LOC: ER 20:05 | DX: Z53.21 Procedure and treatment not carried out due to patient leaving prior to being seen by health care provider (principal) ==

== ENCOUNTER 2016-06-09 15:04 | Emergency (ER) | payer MEDICAID ==
[2016-06-09] MEDS ORDERED: ASPIRIN 81 MG TABLET, CHEWABLE PO ONE (15:49)
--- NOTE | 2016-06-09 15:59 | EKG REPORT ---
SEVERITY:- BORDERLINE ECG - SINUS RHYTHM BORDERLINE INFERIOR Q WAVES BORDERLINE PROLONGED QT INTERVAL : Confirmed by: Chloe Marroquin 09-Jun-2016 15:58:13
--- NOTE | 2016-06-09 16:02 | ER Document Report ---
ED Medical Screen (RME) - General Stated Complaint: CHEST PAIN Mode of Arrival: Ambulatory Information source: Patient Notes: Pt presents to the ED with c/o midsternal chest pressure that radiates down her left arm that started 2 hours ago. History of HTN, + Smoke, + family hx CAD at 42 yo, sister of [place] at 44yo. Reports nausea. I have greeted and performed a rapid initial assessment of this patient. A comprehensive ED assessment and evaluation of the patient, analysis of test results and completion of the medical decision making process will be conducted by additional ED providers. TRAVEL OUTSIDE OF THE [place] IN LAST 30 DAYS: No - Related Data Allergies/Adverse Reactions: morphine [Morphine] Allergy (Verified 04/04/16 05:11) nitrofurantoin [From Macrobid] Allergy (Verified 04/04/16 05:11) nitrofurantoin macrocrystalline [From Macrobid] Allergy (Verified 04/04/16 05:11 ) Sulfa (Sulfonamide Antibiotics) Allergy (Verified 04/04/16 05:11) sulfamethoxazole [From Bactrim] Allergy (Verified 04/04/16 05:11) trimethoprim [From Bactrim] Allergy (Verified 04/04/16 05:11) Past Medical History - Past Medical History Cardiac Medical History: Reports: Hx Hypertension Pulmonary Medical History: Reports: Hx Asthma Endocrine Medical History: Reports: Hx Diabetes Mellitus Type 2 Renal/ Medical History: Denies: Hx Peritoneal Dialysis GI Medical History: Reports: Hx Ulcer Psychiatric Medical History: Reports: Hx Depression Past Surgical History: Reports: Hx Abdominal Surgery - GBP, Hx Cholecystectomy, Hx Gastric Bypass Surgery, Hx Tonsillectomy - Immunizations Immunizations up to date: Yes Hx Diphtheria, Pertussis, Tetanus Vaccination: Yes Physical Exam - Vital signs Vitals: Temp Pulse Resp BP Pulse Ox 98.4 F 85 16 151/93 H 100 06/09/16 15:10 06/09/16 15:10 06/09/16 15:10 06/09/16 15:10 06/09/16 15:10 Course - Vital Signs Vital signs: Temp Pulse Resp BP Pulse Ox 98.4 F 85 16 151/93 H 100 06/09/16 15:10 06/09/16 15:10 06/09/16 15:10 06/09/16 15:10 06/09/16 15:10
[2016-06-09 17:12] LABS: ABSOLUTE BASOPHILS # (AUTO) 0.1 10^3/uL (0.0-0.2); ABSOLUTE EOSINOPHILS # (AUTO) 0.2 10^3/uL (0.0-0.6); ABSOLUTE LYMPHOCYTES (AUTO) 3.2 10^3/uL (0.5-4.7); ABSOLUTE MONOCYTES (AUTO) 0.7 10^3/uL (0.1-1.4); ABSOLUTE NEUT (AUTO) 6.3 10^3/uL (1.7-8.2); BASOPHILS % (AUTO) 0.8 % (0-2); EOSINOPHILS % (AUTO) 1.8 % (0-6); HEMATOCRIT 38.4 % (36.0-47.0); HEMOGLOBIN 12.8 g/dL (12.0-15.5); LYMPHOCYTES % (AUTO) 30.9 % (13-45); MEAN CORPUSCULAR HGB CONC 33.4 g/dL (32.0-36.0); MEAN CORPUSCULAR VOLUME 90 fl (80-97); MONOCYTES % (AUTO) 6.8 % (3-13); RED BLOOD COUNT 4.28 10^6/uL (3.72-5.28); RED CELL DISTRIBUTION WIDTH 14.8 % (11.5-14.0); SEGMENTED NEUTROPHILS % (AUTO) 59.7 % (42-78); WHITE BLOOD COUNT 10.5 10^3/uL (4.0-10.5)
[2016-06-09 17:37] LABS: ALANINE AMINOTRANSFERASE 142 U/L (9-52); ALBUMIN 3.9 g/dL (3.5-5.0); ALKALINE PHOSPHATASE 181 U/L (38-126); ANION GAP 13 (5-19); ASPARTATE AMINO TRANSFERASE 268 U/L (14-36); BILIRUBIN,DIRECT 0.2 mg/dL (0.0-0.4); BILIRUBIN,TOTAL 0.6 mg/dL (0.2-1.3); BLOOD UREA NITROGEN 3 mg/dL (7-20); CALCIUM 8.9 mg/dL (8.4-10.2); CARBON DIOXIDE 27 mmol/L (22-30); CHLORIDE 100 mmol/L (98-107); CREATINE KINASE 91 U/L (30-135); CREATININE RESULT 0.52 mg/dL (0.52-1.25); GLUCOSE 120 mg/dL (75-110); LIPASE 52.4 U/L (23-300); POTASSIUM 5.2 mmol/L (3.6-5.0); SODIUM 139.8 mmol/L (137-145)
[2016-06-09 17:49] LABS: CREATINE KINASE MB 1.38 ng/mL (<4.55)
[2016-06-09 17:52] LABS: TROPONIN I < 0.012 ng/mL
[2016-06-09 20:06] LABS: APPEARANCE,URINE SLIGHTLY-CLOUDY; BILIRUBIN,URINE NEGATIVE (NEGATIVE); GLUCOSE, URINE NEGATIVE (NEGATIVE); KETONES,URINE NEGATIVE (NEGATIVE); LEUKOCYTE ESTERASE,URINE NEGATIVE (NEGATIVE); NITRITE,URINE NEGATIVE (NEGATIVE); PROTEIN,URINE 30 mg/dL (NEGATIVE); URINE SPECIFIC GRAVITY 1.025
--- NOTE | 2016-06-09 20:21 | ER Document Report ---
ED General - General Chief Complaint: Chest Pain Stated Complaint: CHEST PAIN Time seen by provider: 20:19 Mode of Arrival: Ambulatory Information source: Patient TRAVEL OUTSIDE OF THE [place] IN LAST 30 DAYS: No - HPI Patient complains to provider of: dizzy, tired, green stools, nausea and vomiting, palpitations Onset: Yesterday Onset/Duration: Gradual Quality of pain: Achy Severity: Mild Pain Level: 2 Associated symptoms: Body/muscle aches, Chest pain, Chills, Nonproductive cough , Nausea, Vomiting Exacerbated by: Denies Relieved by: Denies Notes: Patient is a 46-year-old female who presents to the emergency room complaining of palpitations with intermittent chest pain, generalized tiredness or malaise, dizziness, lower abdominal pain with nausea and vomiting and green stools, she reports symptoms actually started yesterday evening and have progressed to today leading to her visit to the emergency room, she denies any cough, cold or congestion, no shortness of breath, no new medications, infection is not on any medications at the present time, no new piercings or tattoos, she does have a history of a cholecystectomy, and has not had any alcohol for approximately 5 months although she was a heavy drinker prior to this - Related Data Allergies/Adverse Reactions: morphine [Morphine] Allergy (Verified 04/04/16 05:11) nitrofurantoin [From Macrobid] Allergy (Verified 04/04/16 05:11) nitrofurantoin macrocrystalline [From Macrobid] Allergy (Verified 04/04/16 05:11 ) Sulfa (Sulfonamide Antibiotics) Allergy (Verified 04/04/16 05:11) sulfamethoxazole [From Bactrim] Allergy (Verified 04/04/16 05:11) trimethoprim [From Bactrim] Allergy (Verified 04/04/16 05:11) Past Medical History - General Information source: Patient - Social History Smoking Status: Current Every Day Smoker Family History: CAD, Malignancy Patient has suicidal ideation: No Patient has homicidal ideation: No - Past Medical History Cardiac Medical History: Reports: Hx Hypertension Pulmonary Medical History: Reports: Hx Asthma Endocrine Medical History: Reports: Hx Diabetes Mellitus Type 2 Renal/ Medical History: Denies: Hx Peritoneal Dialysis GI Medical History: Reports: Hx Ulcer Psychiatric Medical History: Reports: Hx Depression Past Surgical History: Reports: Hx Abdominal Surgery - GBP, Hx Cholecystectomy, Hx Gastric Bypass Surgery, Hx Tonsillectomy - Immunizations Immunizations up to date: Yes Hx Diphtheria, Pertussis, Tetanus Vaccination: Yes Review of Systems - Review of Systems Constitutional: See HPI EENT: No symptoms reported Cardiovascular: See HPI Respiratory: No symptoms reported Gastrointestinal: See HPI Genitourinary: No symptoms reported Female Genitourinary: No symptoms reported Musculoskeletal: See HPI Skin: No symptoms reported Hematologic/Lymphatic: No symptoms reported Neurological/Psychological: No symptoms reported -: Yes All other systems reviewed and negative Physical Exam - Vital signs Vitals: Temp Pulse Resp BP Pulse Ox 98.4 F 85 16 151/93 H 100 06/09/16 15:10 06/09/16 15:10 06/09/16 15:10 06/09/16 15:10 06/09/16 15:10 Interpretation: Hypertensive - General General appearance: Appears well, Alert - HEENT Head: Normocephalic, Atraumatic Eyes: Normal Pupils: PERRL - Respiratory Respiratory status: No respiratory distress Chest status: Nontender Breath sounds: Normal Chest palpation: Normal - Cardiovascular Rhythm: Regular Heart sounds: Normal auscultation Murmur: No - Abdominal Inspection: Normal Distension: No distension Bowel sounds: Normal Tenderness: Tender - Mild right upper quadrant tenderness Organomegaly: No organomegaly - Back Back: Normal, Nontender - Extremities General upper extremity: Normal inspection, Nontender, Normal color, Normal ROM , Normal temperature General lower extremity: Normal inspection, Nontender, Normal color, Normal ROM , Normal temperature, Normal weight bearing. No: Yong's sign - Neurological Neuro grossly intact: Yes Cognition: Normal Orientation: AAOx4 Alize Coma Scale Eye Opening: Spontaneous Alize Coma Scale Verbal: Oriented [place] Coma Scale Motor: Obeys Commands [place] Coma Scale Total: 15 Speech: Normal Motor strength normal: LUE, RUE, LLE, RLE Sensory: Normal - Psychological Associated symptoms: Normal affect, Normal mood - Skin Skin Temperature: Warm Skin Moisture: Dry Skin Color: Normal Course - Re-evaluation Re-evalutation: 06/09/16 20:41 Lab and imaging findings were discussed with patient at bedside, ultrasound of the liver was advised given patient's history of alcoholism, elevation in liver enzymes today, green stools and other findings, however patient stated that she was feeling okay and would prefer to follow-up as an outpatient for this test, therefore patient was given a order to get this done as an outpatient and advised to follow-up with her primary care provider in the next 1-2 days or return if symptoms worsen, patient acknowledges understanding and agreement with this plan - Vital Signs Vital signs: Temp Pulse Resp BP Pulse Ox 98.4 F 85 16 151/93 H 100 06/09/16 15:10 06/09/16 15:10 06/09/16 15:10 06/09/16 15:10 06/09/16 15:10 - Laboratory Result Diagrams: 06/09/16 16:56 06/09/16 16:56 Laboratory results interpreted by me: 06/09/16 06/09/16 06/09/16 16:56 16:56 19:45 RDW 14.8 H Potassium 5.2 H BUN 3 L Glucose 120 H AST 268 H ALT 142 H Alkaline Phosphatase 181 H Urine Protein 30 H Urine Urobilinogen 2.0 H Urine Ascorbic Acid 20 H - Diagnostic Test Radiology reviewed: Image reviewed, Reports reviewed - EKG Interpretation by Me EKG shows normal: Sinus rhythm Rate: Normal Rhythm: NSR Discharge - Discharge Clinical Impression: Liver enzyme elevation Chest pain Qualifiers: Chest pain type: unspecified Qualified Code(s): R07.9 - Chest pain, unspecified Condition: Stable Disposition: HOME, SELF-CARE Instructions: Chest Pain of Unclear Cause ([facility]), Liver Function Abnormality ( [facility]) Additional Instructions: Follow up with your primary care provider in one to 2 days. Return to the emergency room immediately if symptoms worsen or any additional concerns. Forms: Follow-Up Radiology Testing Referrals: NATALIIA PAN DO [Primary Care Provider] - Follow up as needed
[2016-06-09 20:56] VITALS: BP 134/73
== END 2016-06-09 20:55 | disposition home or self-care (01) ==
LOC: ER 15:04
DX: R74.8 Abnormal levels of other serum enzymes (principal); R07.9 Chest pain, unspecified; R42 Dizziness and giddiness; R53.81 Other malaise; I10 Essential (primary) hypertension; E11.9 Type 2 diabetes mellitus without complications; Z88.2 Allergy status to sulfonamides; Z88.3 Allergy status to other anti-infective agents; Z88.6 Allergy status to analgesic agent
CPT/HCPCS: 36415; 71020; 80053; 81001; 82550; 82553; 83690; 84484; 85025; 93005; 93010; 99285

== ENCOUNTER 2016-06-30 09:17 | Emergency (ER) | payer MEDICAID ==
[2016-06-30] MEDS ORDERED: ASPIRIN 81 MG TABLET, CHEWABLE PO ONE ×2 (09:18→10:09)
[2016-06-30 10:21] LABS: ABSOLUTE EOSINOPHILS # (AUTO) 0.1 10^3/uL (0.0-0.6); ABSOLUTE LYMPHOCYTES (AUTO) 1.9 10^3/uL (0.5-4.7); ABSOLUTE MONOCYTES (AUTO) 0.6 10^3/uL (0.1-1.4); ABSOLUTE NEUT (AUTO) 10.3 10^3/uL (1.7-8.2); BASOPHILS % (AUTO) 0.3 % (0-2); EOSINOPHILS % (AUTO) 0.4 % (0-6); HEMATOCRIT 37.7 % (36.0-47.0); HEMOGLOBIN 12.9 g/dL (12.0-15.5); LYMPHOCYTES % (AUTO) 14.8 % (13-45); MEAN CORPUSCULAR HGB CONC 34.3 g/dL (32.0-36.0); MEAN CORPUSCULAR VOLUME 88 fl (80-97); MONOCYTES % (AUTO) 4.9 % (3-13); RED BLOOD COUNT 4.31 10^6/uL (3.72-5.28); RED CELL DISTRIBUTION WIDTH 14.9 % (11.5-14.0); SEGMENTED NEUTROPHILS % (AUTO) 79.6 % (42-78); WHITE BLOOD COUNT 12.9 10^3/uL (4.0-10.5)
[2016-06-30 10:39] LABS: ALANINE AMINOTRANSFERASE 51 U/L (9-52); ALBUMIN 4.1 g/dL (3.5-5.0); ALKALINE PHOSPHATASE 145 U/L (38-126); ANION GAP 15 (5-19); ASPARTATE AMINO TRANSFERASE 63 U/L (14-36); BILIRUBIN,DIRECT 0.4 mg/dL (0.0-0.4); BILIRUBIN,TOTAL 0.9 mg/dL (0.2-1.3); BLOOD UREA NITROGEN 7 mg/dL (7-20); CALCIUM 9.1 mg/dL (8.4-10.2); CARBON DIOXIDE 20 mmol/L (22-30); CHLORIDE 106 mmol/L (98-107); CREATINE KINASE 86 U/L (30-135); GLUCOSE 201 mg/dL (75-110); LIPASE 165.5 U/L (23-300); POTASSIUM 3.2 mmol/L (3.6-5.0); SODIUM 141.3 mmol/L (137-145); TOTAL PROTEIN 7.2 g/dL (6.3-8.2)
[2016-06-30 10:51] LABS: CREATINE KINASE MB 0.93 ng/mL (<4.55)
[2016-06-30 10:56] LABS: TROPONIN I < 0.012 ng/mL
[2016-06-30] MEDS ORDERED: MAG HYDROX/AL HYDROX/SIMETH SUSP 30 ML UDCUP PO ONE (10:59)
[2016-06-30] MEDS ORDERED: LIDOCAINE 2% VISCOUS SOLN 20 ML UDCUP PO ONE (10:59)
[2016-06-30] MEDS ORDERED: ONDANSETRON HCL INJ/PF 4 MG/2 ML SDV IV ONE (10:59)
[2016-06-30] MEDS ORDERED: POTASSIUM CHLORIDE 20 MEQ/15 ML UDCUP PO ONE (12:21)
--- NOTE | 2016-06-30 13:04 | ER Document Report ---
ED General - General Chief Complaint: Chest Pain Stated Complaint: CHEST PAIN TRAVEL OUTSIDE OF THE [place] IN LAST 30 DAYS: No - HPI Patient complains to provider of: nausea vomiting chest pain Notes: Patient coming in for evaluation nausea vomiting chest pain. Patient also states having dark stools over the last few days. Patient does have a history of chronic alcohol abuse patient also states she has a history of stool changes. Patient denies a history of very sees her GI bleeding. Patient denies any bright red blood per rectum. Patient states vomiting with nausea for last few days. Patient denies fevers chills. States chest pain substernal no radiation no shortness of breath. Patient states currently trying to stop drinking alcohol cold turkey. Patient is very calm upon my evaluation. Upon talking with the patient's alcohol abuse patient does start to have tremors but the voluntary is that the patient is easy distracted with the Leroy of the tremor - Related Data Allergies/Adverse Reactions: Beef Containing Products Allergy (Verified 06/30/16 09:35) Anaphylaxis morphine [Morphine] Allergy (Verified 04/04/16 05:11) nitrofurantoin [From Macrobid] Allergy (Verified 04/04/16 05:11) nitrofurantoin macrocrystalline [From Macrobid] Allergy (Verified 04/04/16 05:11 ) Sulfa (Sulfonamide Antibiotics) Allergy (Verified 06/30/16 09:34) sulfamethoxazole [From Bactrim] Allergy (Verified 04/04/16 05:11) trimethoprim [From Bactrim] Allergy (Verified 04/04/16 05:11) Past Medical History - Social History Smoking Status: Current Every Day Smoker Chew tobacco use (# tins/day): No Frequency of alcohol use: alcoholic Drug Abuse: None Family History: CAD, Malignancy Patient has suicidal ideation: No Patient has homicidal ideation: No - Past Medical History Cardiac Medical History: Reports: Hx Hypertension Pulmonary Medical History: Reports: Hx Asthma Endocrine Medical History: Reports: Hx Diabetes Mellitus Type 2 Renal/ Medical History: Denies: Hx Peritoneal Dialysis GI Medical History: Reports: Hx Ulcer Psychiatric Medical History: Reports: Hx Depression Past Surgical History: Reports: Hx Abdominal Surgery - GBP, Hx Cholecystectomy, Hx Gastric Bypass Surgery, Hx Tonsillectomy - Immunizations Immunizations up to date: Yes Hx Diphtheria, Pertussis, Tetanus Vaccination: Yes - 2017 Review of Systems - Review of Systems Constitutional: No symptoms reported EENT: No symptoms reported Cardiovascular: Chest pain Respiratory: No symptoms reported Gastrointestinal: Nausea, Vomiting, Black stools Genitourinary: No symptoms reported Female Genitourinary: No symptoms reported Musculoskeletal: No symptoms reported Skin: No symptoms reported Hematologic/Lymphatic: No symptoms reported Neurological/Psychological: No symptoms reported -: Yes All other systems reviewed and negative Physical Exam - Vital signs Vitals: Pulse Ox 97 06/30/16 09:33 Interpretation: Normal - General General appearance: Appears well, Alert - HEENT Head: Normocephalic, Atraumatic Eyes: Normal Pupils: PERRL - Respiratory Respiratory status: No respiratory distress Chest status: Nontender Breath sounds: Normal Chest palpation: Normal - Cardiovascular Rhythm: Regular Heart sounds: Normal auscultation Murmur: No - Abdominal Inspection: Normal Distension: No distension Bowel sounds: Normal Tenderness: Nontender Organomegaly: No organomegaly - Back Back: Normal, Nontender - Extremities General upper extremity: Normal inspection, Nontender, Normal color, Normal ROM , Normal temperature General lower extremity: Normal inspection, Nontender, Normal color, Normal ROM , Normal temperature, Normal weight bearing. No: Yong's sign - Neurological Neuro grossly intact: Yes Cognition: Normal Orientation: AAOx4 [place] Coma Scale Eye Opening: Spontaneous [place] Coma Scale Verbal: Oriented [place] Coma Scale Motor: Obeys Commands Alize Coma Scale Total: 15 Speech: Normal Motor strength normal: LUE, RUE, LLE, RLE Sensory: Normal - Psychological Associated symptoms: Normal affect, Normal mood - Skin Skin Temperature: Warm Skin Moisture: Dry Skin Color: Normal Course - Re-evaluation Re-evalutation: 06/30/16 14:36 Lab work showed signs of hyperkalemia patient was given potassium replacement. H&H stable Patient was able tolerate by mouth. Lab work otherwise not revealing any cardiac pathology chest x-rays negative. Patient has had no nausea no vomiting while here in ER. Patient educated about alcohol withdrawals and to taper off her alcohol use. Patient will be given a prescription for Librium to avoid full-blown alcohol withdrawals. Patient also be treated with nausea medication and will start patient on a proton pump inhibitor. Patient was encouraged follow-up with clinic provided discharged home. - Vital Signs Vital signs: Temp Pulse Resp BP Pulse Ox 97 06/30/16 09:33 - Laboratory Result Diagrams: 06/30/16 10:00 06/30/16 10:00 Laboratory results interpreted by me: 06/30/16 06/30/16 10:00 10:00 WBC 12.9 H RDW 14.9 H Seg Neutrophils % 79.6 H Absolute Neutrophils 10.3 H Potassium 3.2 L Carbon Dioxide 20 L Creatinine 0.50 L Glucose 201 H AST 63 H Alkaline Phosphatase 145 H Discharge - Discharge Clinical Impression: Chest wall pain, Alcohol abuse Nausea & vomiting Qualifiers: Vomiting type: unspecified Vomiting Intractability: unspecified Qualified Code( s): R11.2 - Nausea with vomiting, unspecified Condition: Stable Disposition: HOME, SELF-CARE Instructions: Chest Wall Pain ([facility]), Chest Pain of Unclear Cause ([facility]), Vomiting ([facility]), Alcohol Withdrawl ([facility]), Chronic Alcoholism ([facility]) Additional Instructions: Please follow-up with your primary care physician or the clinic provided. Take medication as prescribed. Return to ER symptoms worsen. I would highly recommend weaning yourself off alcohol slowly and not going " cold turkey" as that she will experience withdrawal symptoms. I will prescribe you Librium for withdrawal symptoms take as needed. Prescriptions: Chlordiazepoxide HCl [Librium 25 mg Capsule] 1 cap PO QID PRN #10 capsule PRN Reason: Omeprazole 20 mg PO DAILY #20 capsule. Promethazine HCl [Phenergan 25 mg Tablet] 1 - 2 tab PO Q6H PRN #15 tablet PRN Reason: Referrals: NATALIIA PAN DO [Primary Care Provider] - Follow up in 3-5 days
--- NOTE | 2016-06-30 18:58 | EKG REPORT ---
SEVERITY:- NORMAL ECG - SINUS RHYTHM : Confirmed by: Chloe Marroquin 30-Jun-2016 18:57:21
== END 2016-06-30 13:30 | disposition home or self-care (01) ==
LOC: ER 09:17
DX: R07.89 Other chest pain (principal); F10.10 Alcohol abuse, uncomplicated; R11.2 Nausea with vomiting, unspecified; E87.5 Hyperkalemia; F17.200 Nicotine dependence, unspecified, uncomplicated; I10 Essential (primary) hypertension; E11.9 Type 2 diabetes mellitus without complications; Z88.6 Allergy status to analgesic agent; Z88.2 Allergy status to sulfonamides; Z88.3 Allergy status to other anti-infective agents; Z90.49 Acquired absence of other specified parts of digestive tract; Z98.84 Bariatric surgery status
CPT/HCPCS: 93005; 99285; 96374; 36415; 82553; 82550; 83690; 85025; 80053; 84484; 71010; 93010; J3490 ×2; J2405

== ENCOUNTER 2016-08-29 14:48 | Emergency (ER) | payer OTHER, MEDICAID ==
[2016-08-29] MEDS ORDERED: ONDANSETRON HCL INJ/PF 4 MG/2 ML SDV ONE (15:04)
--- NOTE | 2016-08-29 16:17 | ER Document Report ---
ED Psych Disorder / Suicide - General Mode of Arrival: Medic Information source: Patient TRAVEL OUTSIDE OF THE [place] IN LAST 30 DAYS: No - HPI Patient complains to provider of: Overdose, Suicidal attempt Associated symptoms: Other - See above <BECKY MUKHERJEE - Last Filed: 08/29/16 16:53> <VENU WARREN - Last Filed: 08/29/16 18:29> - General Chief Complaint: Overdose Stated Complaint: OVERDOSE Time Seen by Provider: 08/29/16 15:20 Notes: Patient is a 46 year old female who presents to the emergency department after an intentional overdose. Patient states that she took Xanax and Percocet with beer and whiskey and then threatened to cut her wrists. Patient states that she was trying to commit suicide at the time and that she is feeling better now but when asked if she still wanted to hurt herself she responded "maybe". Patient states she does not want to stay overnight. (BECKY MUKHERJEE) - Related Data Allergies/Adverse Reactions: Beef Containing Products Allergy (Verified 06/30/16 09:35) Anaphylaxis morphine [Morphine] Allergy (Verified 04/04/16 05:11) nitrofurantoin [From Macrobid] Allergy (Verified 04/04/16 05:11) nitrofurantoin macrocrystalline [From Macrobid] Allergy (Verified 04/04/16 05:11 ) Sulfa (Sulfonamide Antibiotics) Allergy (Verified 06/30/16 09:34) sulfamethoxazole [From Bactrim] Allergy (Verified 04/04/16 05:11) trimethoprim [From Bactrim] Allergy (Verified 04/04/16 05:11) Past Medical History - General Information source: Patient - Social History Smoking Status: Unknown if Ever Smoked Frequency of alcohol use: Heavy Drug Abuse: Prescription drugs Family History: Reviewed & Not Pertinent, CAD, Malignancy - Past Medical History Cardiac Medical History: Reports: Hx Hypertension Pulmonary Medical History: Reports: Hx Asthma Endocrine Medical History: Reports: Hx Diabetes Mellitus Type 2 GI Medical History: Reports: Hx Ulcer Psychiatric Medical History: Reports: Hx Depression Past Surgical History: Reports: Hx Abdominal Surgery - GBP, Hx Cholecystectomy, Hx Gastric Bypass Surgery, Hx Tonsillectomy - Immunizations Immunizations up to date: Yes Hx Diphtheria, Pertussis, Tetanus Vaccination: Yes - 2016 <BECKY MUKHERJEE - Last Filed: 08/29/16 16:53> Review of Systems - Review of Systems Constitutional: No symptoms reported EENT: No symptoms reported Cardiovascular: No symptoms reported Respiratory: No symptoms reported Gastrointestinal: No symptoms reported Genitourinary: No symptoms reported Female Genitourinary: No symptoms reported Musculoskeletal: No symptoms reported Skin: No symptoms reported Hematologic/Lymphatic: No symptoms reported Neurological/Psychological: See HPI, Suicidal ideation -: Yes All other systems reviewed and negative <BECKY MUKHERJEE - Last Filed: 08/29/16 16:53> Course <BECKY MUKHERJEE - Last Filed: 08/29/16 16:53> - Laboratory Result Diagrams: 08/29/16 15:10 08/29/16 15:10 <VENU WARREN - Last Filed: 08/29/16 18:29> - Re-evaluation Re-evalutation: 08/29/16 18:28 Patient is a 46-year-old female who comes in after an apparent overdose and think she is going to slit her wrist. In the emergency department, the patient was still expressing suicidality. Patient's significant other also does not want her to go home as he is concerned about her safety. Patient went out to smoke and had to be brought back in by security. She is otherwise medically stable although has alcohol in her system. (VENU WARREN) - Vital Signs Vital signs: Temp Pulse Resp BP Pulse Ox 97.9 F 91 14 121/85 97 08/29/16 15:00 08/29/16 15:00 08/29/16 15:00 08/29/16 15:00 08/29/16 15:00 - Laboratory Laboratory results interpreted by me: 08/29/16 08/29/16 08/29/16 15:10 15:10 16:20 RDW 18.9 H Glucose 126 H AST 37 H Urine Nitrite POSITIVE H Salicylates < 1.0 L Acetaminophen < 10 L Discharge <BECKY MUKHERJEE - Last Filed: 08/29/16 16:53> <VENU WARREN - Last Filed: 08/29/16 18:29> - Discharge Clinical Impression: Suicidal ideation Alcoholic intoxication Qualifiers: Complication of substance-induced condition: uncomplicated Qualified Code(s): F10.920 - Alcohol use, unspecified with intoxication, uncomplicated Condition: Stable Disposition: OTHER Scribe Attestation: 08/29/16 18:29 I personally performed the services described in the documentation, reviewed and edited the documentation which was dictated to the scribe in my presence, and it accurately records my words and actions. (VENU WARREN) Scribe Documentation - Scribe Written by Scrdio:: ray Pisano, 08/29/16, [id number] acting as scribe for :: Shiv <BECKY MUKHERJEE - Last Filed: 08/29/16 16:53>
[2016-08-29 16:42] LABS: APPEARANCE,URINE CLEAR; BILIRUBIN,URINE NEGATIVE (NEGATIVE); GLUCOSE, URINE NEGATIVE (NEGATIVE); KETONES,URINE NEGATIVE (NEGATIVE); LEUKOCYTE ESTERASE,URINE NEGATIVE (NEGATIVE); NITRITE,URINE POSITIVE (NEGATIVE); PROTEIN,URINE NEGATIVE (NEGATIVE); URINE SPECIFIC GRAVITY 1.003; UROBILINOGEN,URINE NEGATIVE mg/dL (<2.0)
[2016-08-29 16:51] LABS: URINE BARBITURATES SCREEN NEGATIVE; URINE METHADONE SCREEN NEGATIVE; URINE OPIATES LOW NEGATIVE; URINE PHENCYCLIDINE SCREEN NEGATIVE
[2016-08-29 17:23] LABS: ABSOLUTE BASOPHILS # (AUTO) 0.1 10^3/uL (0.0-0.2); ABSOLUTE EOSINOPHILS # (AUTO) 0.1 10^3/uL (0.0-0.6); ABSOLUTE LYMPHOCYTES (AUTO) 3.4 10^3/uL (0.5-4.7); ABSOLUTE MONOCYTES (AUTO) 0.6 10^3/uL (0.1-1.4); ABSOLUTE NEUT (AUTO) 3.9 10^3/uL (1.7-8.2); BASOPHILS % (AUTO) 0.8 % (0-2); EOSINOPHILS % (AUTO) 1.1 % (0-6); HEMATOCRIT 40.8 % (36.0-47.0); HEMOGLOBIN 13.3 g/dL (12.0-15.5); HGB HCT DIFFERENCE -0.9; LYMPHOCYTES % (AUTO) 42.9 % (13-45); MEAN CORPUSCULAR HEMOGLOBIN 31.5 pg (27.0-33.4); MEAN CORPUSCULAR HGB CONC 32.6 g/dL (32.0-36.0); MEAN CORPUSCULAR VOLUME 97 fl (80-97); MONOCYTES % (AUTO) 7.1 % (3-13); RED BLOOD COUNT 4.23 10^6/uL (3.72-5.28); RED CELL DISTRIBUTION WIDTH 18.9 % (11.5-14.0); SEGMENTED NEUTROPHILS % (AUTO) 48.1 % (42-78)
[2016-08-29 17:30] LABS: ALANINE AMINOTRANSFERASE 34 U/L (9-52); ALBUMIN 3.8 g/dL (3.5-5.0); ALCOHOL 285 mg/dL (NONE DETECTED); ALKALINE PHOSPHATASE 92 U/L (38-126); ANION GAP 14 (5-19); ASPARTATE AMINO TRANSFERASE 37 U/L (14-36); BILIRUBIN,DIRECT 0.3 mg/dL (0.0-0.4); BILIRUBIN,TOTAL 0.3 mg/dL (0.2-1.3); BLOOD UREA NITROGEN 10 mg/dL (7-20); CALCIUM 8.8 mg/dL (8.4-10.2); CARBON DIOXIDE 22 mmol/L (22-30); CHLORIDE 105 mmol/L (98-107); CREATININE RESULT 0.58 mg/dL (0.52-1.25); GLUCOSE 126 mg/dL (75-110); POTASSIUM 4.4 mmol/L (3.6-5.0); SODIUM 140.5 mmol/L (137-145)
--- NOTE | 2016-08-29 17:49 | EKG REPORT ---
SEVERITY:- BORDERLINE ECG - SINUS RHYTHM BORDERLINE PROLONGED QT INTERVAL : Confirmed by: Chloe Marroquin 29-Aug-2016 17:48:44
[2016-08-29] MEDS ORDERED: NICOTINE 21 MG/24 HR PATCH.TD24 TD ONE (18:18)
[2016-08-29] MEDS ORDERED: OLANZAPINE 5 MG TAB.RAPDIS PO ONE (18:23)
[2016-08-29] MEDS ORDERED: DIAZEPAM 2 MG TABLET PO ONE (18:43)
--- NOTE | 2016-08-29 19:25 | RADIOLOGY REPORT (SQ) ---
EXAM DESCRIPTION: L SPINE WHOLE COMPLETED DATE/TIME: 08/29/2016 7:07 pm REASON FOR STUDY: fall, pain COMPARISON: None. NUMBER OF VIEWS: Five views including obliques. TECHNIQUE: AP, lateral, oblique, and sacral radiographic images acquired of the lumbar spine. LIMITATIONS: None. FINDINGS: MINERALIZATION: Normal. SEGMENTATION: Normal. No transitional anatomy. ALIGNMENT: Grossly Normal. VERTEBRAE: Maintained height. No fracture or worrisome bone lesion. DISCS: Multilevel disc space narrowing with osteophytes. POSTERIOR ELEMENTS: Pedicles and facets are intact. No pars defect or posterior arch defects. Facet arthropathy is present. HARDWARE: None in the spine. PARASPINAL SOFT TISSUES: Normal. PELVIS: Intact as visualized. No fractures or worrisome bone lesions. SI joints intact. OTHER: No other significant finding. IMPRESSION: SPONDYLOSIS WITHOUT BONE LESION OR FRACTURE. TECHNICAL DOCUMENTATION: JOB ID: [id number] [employer]- All Rights Reserved
[2016-08-29] MEDS ORDERED: HALOPERIDOL LACTATE INJ 5 MG/1 ML VIAL IM ONE (20:49)
[2016-08-29] MEDS ORDERED: DIPHENHYDRAMINE HCL 50 MG/ML VIAL IM ONE (20:49)
[2016-08-30] MEDS ORDERED: LORAZEPAM INJ 2 MG/1 ML VIAL IM ONE (09:23)
--- NOTE | 2016-08-30 09:52 | ER Document Report ---
Doctor's Note Notes: 08/30/16 09:51 Patient resting comfortably on stretcher, reports feeling much better, she did request the dose of medication to help her with shaking she was experiencing from possible alcohol withdrawal, when she got that medication she reports feeling much better, she denies suicidal homicidal ideation and request to be discharged home today, she is set up to go to a 90 day rehab program through the court system in a few weeks, her spouse is at bedside and seems to be very supportive, she will be discharged today with a prescription for Ativan to prevent assist with symptoms related to alcohol withdrawal, as well as information for follow-up and advised to return if any additional concerns, patient acknowledges understanding and agreement with this plan
[2016-08-30] MEDS ORDERED: LISINOPRIL 10 MG TABLET PO SCH (10:00)
[2016-08-30] MEDS ORDERED: TRAZODONE HCL 50 MG TABLET PO PRN (10:00)
[2016-08-30] MEDS ORDERED: METFORMIN HCL 500 MG TABLET PO SCH (10:00)
--- NOTE | 2016-08-30 10:21 | ER Document Report ---
ED Psych Disorder / Suicide - General Chief Complaint: Psych Problem Stated Complaint: OVERDOSE Time Seen by Provider: 08/29/16 15:20 Mode of Arrival: Medic TRAVEL OUTSIDE OF THE [place] IN LAST 30 DAYS: No - HPI Notes: Patient is a 46 year old female who presents to the emergency department after an intentional overdose. Patient states that she took Xanax and Percocet with beer and whiskey and then threatened to cut her wrists. Patient states that she was trying to commit suicide at the time and that she is feeling better now but when asked if she still wanted to hurt herself she responded "maybe". Patient states she does not want to stay overnight. Patient states that she did not overdose yesterday. She continued disclosed that she was heavily drinking yesterday. She continued disclosed that she does not want to kill herself. Patient states that everything was a misunderstanding yesterday because she was patient states that he yesterday's episode was triggered by a "misunderstanding" with her significant other Drew Dave. States that she is going to treatment soon. Clinician spoke with Drew Tenzin he disclosed that they have set up the patient to go to a 3 month program; program is with [facility]. he states that she will be leaving very soon. He agrees to assist the patient in following up with all home treatment both mental health and substance abuse. He also agrees to assist the patient and ensuring she does not have access to medications. Patient admitted to person place time and circumstance. Mood is euthymic with congruent affect. Suicidal and homicidal ideation. Patient denies auditory and visual hallucinations; patient is not demonstrating any behavior congruent with responding to internal. No delusions are noted. Thought process is currently organized and linear. Conversational speech was within normal rate, tone and prosody. Eye contact was fair. Intellectual abilities appear to be within average range. Attention and concentration are good. Insight, judgment , impulse control are poor. 303.90 (F10.20) alcohol related disorder severe Impression\\plan: Patient is recommended for rescind of IVC and considered psychiatrically clear for discharge. Patient denies suicidal ideation and does not meet IVC criteria per [place] GS 122C. Patient originally stated she had overdosed on pills; patient is now denying this claim (toxicology screening shows no evidence of overdose on Xanax or Percocet). Patient will be attending a three-month program in [place] for her alcoholism. Dr. Arias was consulted on the care and management of this patient; attending physician in agreement with recommendations and disposition. - Related Data Allergies/Adverse Reactions: Beef Containing Products Allergy (Verified 08/29/16 21:01) Anaphylaxis morphine [Morphine] Allergy (Verified 08/29/16 21:01) nitrofurantoin [From Macrobid] Allergy (Verified 08/29/16 21:01) nitrofurantoin macrocrystalline [From Macrobid] Allergy (Verified 08/29/16 21:01 ) Sulfa (Sulfonamide Antibiotics) Allergy (Verified 08/29/16 21:01) sulfamethoxazole [From Bactrim] Allergy (Verified 08/29/16 21:01) trimethoprim [From Bactrim] Allergy (Verified 08/29/16 21:01) Home Medications: Current Home Medications Escitalopram Oxalate [Lexapro] 20 mg PO DAILY 08/29/16 [History] Lisinopril [Lisinopril] 20 mg PO DAILY 08/29/16 [History] Metformin HCl [Metformin HCl] 500 mg PO BID 08/29/16 [History] Trazodone HCl 100 mg PO QHS PRN 08/29/16 [History] Past Medical History - General Information source: Patient - Social History Smoking Status: Unknown if Ever Smoked Chew tobacco use (# tins/day): Yes Frequency of alcohol use: Heavy Drug Abuse: Prescription drugs Family History: Reviewed & Not Pertinent, CAD, Malignancy - Past Medical History Cardiac Medical History: Reports: Hx Hypertension Pulmonary Medical History: Reports: Hx Asthma Endocrine Medical History: Reports: Hx Diabetes Mellitus Type 2 Renal/ Medical History: Denies: Hx Peritoneal Dialysis GI Medical History: Reports: Hx Ulcer Psychiatric Medical History: Reports: Hx Depression Past Surgical History: Reports: Hx Abdominal Surgery - GBP, Hx Cholecystectomy, Hx Gastric Bypass Surgery, Hx Tonsillectomy - Immunizations Immunizations up to date: Yes Hx Diphtheria, Pertussis, Tetanus Vaccination: Yes - 2016 Physical Exam - Vital signs Vitals: Resp Pulse Ox 23 H 97 08/29/16 14:59 08/29/16 14:59 Course - Vital Signs Vital signs: Temp Pulse Resp BP Pulse Ox 99.6 F 91 20 172/93 H 95 08/30/16 08:50 08/30/16 08:50 08/30/16 08:50 08/30/16 08:50 08/30/16 08:50 - Laboratory Result Diagrams: 08/29/16 15:10 08/29/16 15:10 Laboratory results interpreted by me: 08/29/16 08/29/16 08/29/16 15:10 15:10 16:20 RDW 18.9 H Glucose 126 H AST 37 H Urine Nitrite POSITIVE H Salicylates < 1.0 L Acetaminophen < 10 L Discharge - Discharge Clinical Impression: Alcohol intoxication Qualifiers: Complication of substance-induced condition: uncomplicated Qualified Code(s): F10.920 - Alcohol use, unspecified with intoxication, uncomplicated Clinical Impression: (Ruled Out): Suicidal ideation Condition: Stable Disposition: HOME, SELF-CARE Additional Instructions: ACUTE ALCOHOL INTOXICATION and ALCOHOL ABUSE: Your evaluation revealed very high levels of alcohol. You can from drinking a large amount of alcohol rapidly! Further, there's the risk of falls , traffic accidents, and fights. A high portion (about 50 percent) of the serious injuries seen in hospital emergency rooms are caused by alcohol. Alcohol overdosage is usually due to an underlying emotional or psychiatric problem. You may benefit from counselling. If "binge" drinking is an ongoing problem for you, or if you drink ANY AMOUNT of alcohol EVERY day, you most likely have a tendency to alcoholism. You should avoid alcohol totally. We can refer you for treatment. Persons with alcohol problems are often also prone to other addictions -- you should discuss any use of medications or drugs with the doctor. You should be watched at home for the next several hours by someone who has not been drinking. Get extra fluids for the next 24 hours. Call the doctor if there is repeated vomiting, increasing headache, decreasing level of alertness, or any other worsening. CHRONIC ALCOHOLISM and ALCOHOL ABUSE: Your evaluation reveals evidence of chronic alcoholism, an addiction to alcohol. The tendency to alcoholism may be inherited. Chronic use of alcohol weakens muscles, causes fatty deposits in the liver , damages the stomach, makes you more prone to infections, and can cause defects in unborn children. In the long run, brain atrophy and cirrhosis of the liver result. You are also at greater risk for certain types of cancer, such as cancer of the mouth, throat, stomach, and liver. Counselling services are available to help you. In-hospital treatment programs often help. Support groups such as Alcoholics Anonymous can be very useful in beating this addiction. Your physician can make a referral for you. As alcoholics often are prone to other addictions, you should discuss your use of any other medications with the doctor. ALCOHOL WITHDRAWAL: Your symptoms are caused by alcohol withdrawal. After a period of frequent drinking, the brain and body are changed by the alcohol. When you quit or reduce your drinking, the nervous system becomes unstable. Withdrawal symptoms can start a few hours after your last drink, but sometimes don't begin until a couple of days later. Symptoms can include shakiness, sweating, insomnia, nausea , vomiting, fearfulness, hallucinations, and seizures. In addition to the acute effects of alcohol withdrawal, we often have to deal with the medical effects of alcoholism. These problems often include dehydration, stomach irritation, intestinal bleeding, low blood sugar, liver disease, and pancreas inflammation. Treatment for alcohol withdrawal includes mild sedatives, vitamins, and fluids. You need to be with someone who can help if symptoms become severe. Many patients can withdraw at home. Admission to the hospital or a detox facility may be necessary if withdrawal symptoms are severe and uncontrollable. Abstaining from alcohol is the only effective long-term treatment. If you start drinking again, you will not be able to control yourself after the first drink. Treatment programs are available. In addition, many alcoholics benefit from Alcoholics Anonymous or other support groups available through your counselor or protestant manager care. [facility] and [facility] are support groups for friends and family members of an alcoholic. Go to the emergency room if you develop persistent vomiting, severe abdominal pain, fever, shortness of breath, hallucinations, uncontrollable tremors, or seizures. FOLLOW-UP CARE: Please follow-up with [facility] on Thursday09/01/2016 at 8am for your mental health needs and follow through with your current plans of attending [facility] for your substance abuse. If you experience worsening or a significant change in your symptoms, notify the physician immediately or return to the Emergency Department at any time for re-evaluation. Referrals: NATALIIA PAN DO [Primary Care Provider] - Follow up as needed [facility] [Provider Group] - 09/01/16 8:00 am Scribe Attestation: 08/29/16 18:29 I personally performed the services described in the documentation, reviewed and edited the documentation which was dictated to the scribe in my presence, and it accurately records my words and actions.
--- NOTE | 2016-08-30 10:32 | PSYCHOLOGICAL NOTE ---
Psych Note - Psych Note Psych Note: Patient is a 46 year old female who presents to the emergency department after an intentional overdose. Patient states that she took Xanax and Percocet with beer and whiskey and then threatened to cut her wrists. Patient states that she was trying to commit suicide at the time and that she is feeling better now but when asked if she still wanted to hurt herself she responded "maybe". Patient states she does not want to stay overnight. Patient states she "wants to because she is just tired of living." She continued disclosed that she has been feeling this way for a while because she was just told she had to go to a 3 month program for alcohol. She states that she does not know when she is leaving but denies it being court ordered. She continued disclosed that she overdosed on pills. She states that the pills were Percocet and Valium. Patient states she does not know how long ago she took them. Patient is semi-alert and orientated to person, place, time and circumstance. Mood is dysphoric with flat affect. Patient is noted to be complaining of nausea and drooling on herself. Patient endorses suicidal ideation disclosing she took an unidentified amount of pills. Patient denies homicidal ideation. Patient denies auditory visual hallucinations; no delusions are noted. Thought process is organized and linear. Conversational speech was slurred and difficult to understand. Patient kept eyes closed during entire evaluation. Cognitive abilities appear to be impaired by an unknown substance at this time. 303.90 (F10.20) alcohol related disorder severe per history Impression\\plan: Patient is recommended for IVC. It appears to be under the influence currently by an unknown substance. Patient endorses a suicide attempt by taking an unknown number of pills. At this time toxicology reports not in; evaulation is incomplete at this time. Dr. Arias was consulted on the care and management of this patient; attending physician in agreement with recommendations and disposition.
[2016-08-30 11:26] VITALS: BP 146/92
== END 2016-08-30 11:26 | disposition home or self-care (01) ==
LOC: ER 14:48
DX: F10.920 Alcohol use, unspecified with intoxication, uncomplicated (principal); R45.851 Suicidal ideations; I10 Essential (primary) hypertension; J45.909 Unspecified asthma, uncomplicated; E11.9 Type 2 diabetes mellitus without complications; Z90.49 Acquired absence of other specified parts of digestive tract; Z98.84 Bariatric surgery status; Z88.6 Allergy status to analgesic agent; Z88.2 Allergy status to sulfonamides
CPT/HCPCS: 93005; 99285; 96372; 96374; 36415; 80307 ×4; 85025; 80053; 81001; 72110; 93010; J3490 ×5; J1200; J1630; J2060; J2405

== ENCOUNTER 2016-09-14 07:25 | Emergency (ER) | payer OTHER, MEDICAID ==
[2016-09-14 08:08] LABS: ABSOLUTE BASOPHILS # (AUTO) 0.1 10^3/uL (0.0-0.2); ABSOLUTE EOSINOPHILS # (AUTO) 0.1 10^3/uL (0.0-0.6); ABSOLUTE LYMPHOCYTES (AUTO) 2.8 10^3/uL (0.5-4.7); ABSOLUTE MONOCYTES (AUTO) 0.6 10^3/uL (0.1-1.4); ABSOLUTE NEUT (AUTO) 4.4 10^3/uL (1.7-8.2); BASOPHILS % (AUTO) 0.7 % (0-2); EOSINOPHILS % (AUTO) 1.4 % (0-6); HEMATOCRIT 39.6 % (36.0-47.0); HGB HCT DIFFERENCE -0.6; LYMPHOCYTES % (AUTO) 35.6 % (13-45); MEAN CORPUSCULAR HEMOGLOBIN 32.1 pg (27.0-33.4); MEAN CORPUSCULAR HGB CONC 32.8 g/dL (32.0-36.0); MEAN CORPUSCULAR VOLUME 98 fl (80-97); MONOCYTES % (AUTO) 7.6 % (3-13); RED BLOOD COUNT 4.04 10^6/uL (3.72-5.28); RED CELL DISTRIBUTION WIDTH 18.1 % (11.5-14.0); SEGMENTED NEUTROPHILS % (AUTO) 54.7 % (42-78)
[2016-09-14 08:09] LABS: VENOUS BLOOD HCO3 24.6 mmol/L (20-32); VENOUS BLOOD PCO2 44.1 mmHg (35-63); VENOUS BLOOD PH 7.36 (7.30-7.42)
[2016-09-14] MEDS: NORMAL SALINE 1000 ML 1,000 ML IV PRN ×2 (08:22→08:41)
[2016-09-14 08:27] LABS: ALANINE AMINOTRANSFERASE 91 U/L (9-52); ALBUMIN 4.1 g/dL (3.5-5.0); ALKALINE PHOSPHATASE 91 U/L (38-126); ANION GAP 14 (5-19); ASPARTATE AMINO TRANSFERASE 178 U/L (14-36); BILIRUBIN,DIRECT 0.2 mg/dL (0.0-0.4); BILIRUBIN,TOTAL 0.8 mg/dL (0.2-1.3); BLOOD UREA NITROGEN 11 mg/dL (7-20); CALCIUM 8.9 mg/dL (8.4-10.2); CARBON DIOXIDE 22 mmol/L (22-30); CHLORIDE 103 mmol/L (98-107); GLUCOSE 170 mg/dL (75-110); POTASSIUM 3.8 mmol/L (3.6-5.0); SODIUM 138.8 mmol/L (137-145); TOTAL PROTEIN 7.6 g/dL (6.3-8.2)
[2016-09-14] MEDS ORDERED: ONDANSETRON HCL INJ/PF 4 MG/2 ML SDV IV ONE (08:31)
[2016-09-14] MEDS ORDERED: LORAZEPAM INJ 2 MG/1 ML VIAL IV ONE (08:31)
--- NOTE | 2016-09-14 08:36 | ER Document Report ---
ED General - General Chief Complaint: Weakness Stated Complaint: WEAKNESS Time Seen by Provider: 09/14/16 07:41 Mode of Arrival: Ambulatory Information source: Patient, Relative Notes: 46-year-old female history of chronic alcoholism who has been decreasing her alcohol intake over the past few days presents with 4 day duration of nausea vomiting diarrhea. Patient denies any fevers or chills notes she may have sees 3 days ago. Patient does admit to 2 episodes of presyncope feeling lightheaded and weak patient otherwise denies any significant complaint And is going to a 90 day rehab center in 2 weeks TRAVEL OUTSIDE OF THE [place] IN LAST 30 DAYS: No - HPI Onset: Last week Onset/Duration: Persistent Quality of pain: No pain Severity: Moderate Pain Level: Denies Associated symptoms: Diarrhea, Nausea, Vomiting, Weakness Exacerbated by: Standing Relieved by: Denies Similar symptoms previously: No Recently seen / treated by doctor: No - Related Data Allergies/Adverse Reactions: Beef Containing Products Allergy (Verified 09/14/16 07:34) Anaphylaxis morphine [Morphine] Allergy (Verified 09/14/16 07:34) nitrofurantoin [From Macrobid] Allergy (Verified 09/14/16 07:34) nitrofurantoin macrocrystalline [From Macrobid] Allergy (Verified 09/14/16 07:34 ) Sulfa (Sulfonamide Antibiotics) Allergy (Verified 09/14/16 07:34) sulfamethoxazole [From Bactrim] Allergy (Verified 09/14/16 07:34) trimethoprim [From Bactrim] Allergy (Verified 09/14/16 07:34) Past Medical History - Social History Smoking Status: Current Every Day Smoker Cigarette use (# per day): Yes Chew tobacco use (# tins/day): No Smoking Education Provided: No Frequency of alcohol use: Heavy Family History: Reviewed & Not Pertinent, CAD, Malignancy - Past Medical History Cardiac Medical History: Reports: Hx Hypertension Pulmonary Medical History: Reports: Hx Asthma Endocrine Medical History: Reports: Hx Diabetes Mellitus Type 2 Renal/ Medical History: Denies: Hx Peritoneal Dialysis GI Medical History: Reports: Hx Ulcer Psychiatric Medical History: Reports: Hx Depression Past Surgical History: Reports: Hx Abdominal Surgery - GBP, Hx Cholecystectomy, Hx Gastric Bypass Surgery, Hx Tonsillectomy - Immunizations Immunizations up to date: Yes Hx Diphtheria, Pertussis, Tetanus Vaccination: Yes - 2017 Review of Systems - Review of Systems Notes: REVIEW OF SYSTEMS: CONSTITUTIONAL : Denies fever, chills, or sweats. Denies recent illness. EENT: Denies eye, ear, throat, or mouth pain or symptoms. Denies nasal or sinus congestion or discharge. Denies throat, tongue, or mouth swelling or difficulty swallowing. CARDIOVASCULAR: Denies chest pain. Denies palpitations or racing or irregular heart beat. Denies ankle edema. RESPIRATORY: Denies cough, cold, or chest congestion. Denies shortness of breath, difficulty breathing, or wheezing. GASTROINTESTINAL: Admits to nausea vomiting diarrhea GENITOURINARY: Denies difficulty urinating, painful urination, burning, frequency, blood in urine, or discharge. FEMALE GENITOURINARY: Denies vaginal bleeding, heavy or abnormal periods, irregular periods. Denies vaginal discharge or odor. MUSCULOSKELETAL: Denies back or neck pain or stiffness. Denies joint pain or swelling. SKIN: Denies rash, lesions or sores. HEMATOLOGIC : Denies easy bruising or bleeding. LYMPHATIC: Denies swollen, enlarged glands. NEUROLOGICAL: admits seizure presyncope PSYCHIATRIC: Denies anxiety or stress. Denies depression, suicidal ideation, or homicidal ideation. ALL OTHER SYSTEMS REVIEWED AND NEGATIVE. PHYSICAL EXAMINATION: GENERAL: Well-appearing, well-nourished and in no acute distress. HEAD: Atraumatic, normocephalic. EYES: Pupils equal round and reactive to light, extraocular movements intact, conjunctiva are normal. ENT: Nares patent, oropharynx clear without exudates. Moist mucous membranes. NECK: Normal range of motion, supple without lymphadenopathy LUNGS: Breath sounds clear to auscultation bilaterally and equal. No wheezes rales or rhonchi. HEART: Regular rate and rhythm without murmurs ABDOMEN: Soft, nontender, nondistended abdomen. No guarding, no rebound. No masses appreciated. Female : deferred Musculoskeletal: Normal range of motion, no pitting or edema. No cyanosis. NEUROLOGICAL: Cranial nerves grossly intact. Normal speech, normal gait. Normal sensory, motor exams PSYCH: Normal mood, normal affect. SKIN: Warm, Dry, normal turgor, no rashes or lesions noted. Dictation was performed using [employer] recognition software Physical Exam - Vital signs Vitals: Temp Pulse Resp BP Pulse Ox 97.8 F 85 20 94/58 L 93 09/14/16 07:32 09/14/16 07:32 09/14/16 07:32 09/14/16 07:32 09/14/16 07:32 Course - Re-evaluation Re-evalutation: 09/14/16 08:36 Overall patient looks extremely well for the withdrawn, she is in no significant distress. She will be given IV fluids Ativan as otherwise looks well. Noted to be hypotensive I believe this is secondary to loss of fluids 09/14/16 09:48 Physical examination otherwise noted improvement of her blood pressure. Patient 's lab work mild elevation of liver enzymes Patient sleeping was comfortable Nitrates noted After performing a Medical Screening Examination, I estimate there is LOW risk for ACUTE APPENDICITIS, BOWEL OBSTRUCTION, ACUTE CHOLECYSTITIS, PERFORATED DIVERTICULITIS, INCARCERATED HERNIA, PANCREATITIS, PELVIC INFLAMMATORY DISEASE, PERFORATED ULCER, ECTOPIC , or TUBO-OVARIAN ABSCESS, thus I consider the discharge disposition reasonable. Also, there is no evidence or peritonitis , sepsis, or toxicity. I have reevaluated this patient multiple times and no significant life threatening changes are noted. The patient and I have discussed the diagnosis and risks, and we agree with discharging home with close follow-up with the understanding that symptoms and presentations can change. We also discussed returning to the Emergency Department immediately if new or worsening symptoms occur. We have discussed the symptoms which are most concerning (e.g., bloody stool, fever, changing or worsening pain, vomiting) that necessitate immediate return. - Vital Signs Vital signs: Temp Pulse Resp BP Pulse Ox 97.8 F 85 16 113/77 97 09/14/16 07:32 09/14/16 07:32 09/14/16 09:01 09/14/16 09:01 09/14/16 09:01 - Laboratory Result Diagrams: 09/14/16 07:50 09/14/16 07:50 Laboratory results interpreted by me: 09/14/16 09/14/16 09/14/16 07:37 07:50 07:50 MCV 98 H RDW 18.1 H Glucose 170 H POC Glucose 186 H AST 178 H ALT 91 H Urine Nitrite 09/14/16 09/14/16 07:58 08:18 MCV RDW Glucose POC Glucose 172 H AST ALT Urine Nitrite POSITIVE H Discharge - Discharge Clinical Impression: Weakness, Pre-syncope UTI (urinary tract infection) Qualifiers: Urinary tract infection type: acute cystitis Hematuria presence: without hematuria Qualified Code(s): N30.00 - Acute cystitis without hematuria Alcohol withdrawal Qualifiers: Complication of substance-induced condition: uncomplicated Qualified Code(s): F10.230 - Alcohol dependence with withdrawal, uncomplicated Condition: Stable Disposition: HOME, SELF-CARE Instructions: Alcohol Withdrawl ([facility]) Prescriptions: Lorazepam [Ativan 0.5 mg Tablet] 0.5 mg PO TID #30 tab Ondansetron [Zofran Odt 4 mg Tablet] 1 - 2 tab PO Q4H PRN #15 tab.rapdis PRN Reason: For Nausea/Vomiting Referrals: NATALIIA PAN DO [Primary Care Provider] - Follow up in 3-5 days
[2016-09-14 08:40] LABS: APPEARANCE,URINE SLIGHTLY-CLOUDY; BILIRUBIN,URINE NEGATIVE (NEGATIVE); GLUCOSE, URINE NEGATIVE (NEGATIVE); KETONES,URINE NEGATIVE (NEGATIVE); LEUKOCYTE ESTERASE,URINE NEGATIVE (NEGATIVE); NITRITE,URINE POSITIVE (NEGATIVE); PROTEIN,URINE NEGATIVE (NEGATIVE); URINE SPECIFIC GRAVITY 1.013; UROBILINOGEN,URINE NEGATIVE mg/dL (<2.0)
[2016-09-14 10:11] VITALS: BP 112/80
--- NOTE | 2016-09-14 11:22 | EKG REPORT ---
SEVERITY:- NORMAL ECG - SINUS RHYTHM : Confirmed by: Chloe Marroquin 14-Sep-2016 11:22:03
== END 2016-09-14 10:11 | disposition home or self-care (01) ==
LOC: ER 07:25
DX: F10.230 Alcohol dependence with withdrawal, uncomplicated (principal); N30.00 Acute cystitis without hematuria; R11.2 Nausea with vomiting, unspecified; R19.7 Diarrhea, unspecified; R74.8 Abnormal levels of other serum enzymes; I95.9 Hypotension, unspecified; R55 Syncope and collapse; R56.9 Unspecified convulsions; E11.9 Type 2 diabetes mellitus without complications; I10 Essential (primary) hypertension; J45.909 Unspecified asthma, uncomplicated; F17.210 Nicotine dependence, cigarettes, uncomplicated; Z88.5 Allergy status to narcotic agent; Z88.1 Allergy status to other antibiotic agents; Z88.2 Allergy status to sulfonamides; Z87.892 Personal history of anaphylaxis; Z91.018 Allergy to other foods; Z98.84 Bariatric surgery status; Z90.49 Acquired absence of other specified parts of digestive tract
CPT/HCPCS: 93005; 99285; 51701; 96374; 96375; 36415; 87040; 87086; 82962; 85025; 85610; 87088; 80053; 81001; 87186; 82803; 93010; 83605; J2060; J2405; J7030

== ENCOUNTER → 2016-10-18 | Outpatient (CLI) | payer OTHER, MEDICAID | LOC: LAB 12:14 | PROVIDERS: ATTEND Emergency Medicine | DX: M54.5 Low back pain (principal); R30.0 Dysuria | CPT/HCPCS: 87086 ==

== ENCOUNTER → 2016-11-03 | Outpatient (CLI) | payer MEDICAID ==
--- NOTE | 2016-11-03 17:33 | RADIOLOGY REPORT (SQ) ---
EXAM DESCRIPTION: ANKLE LEFT COMPLETE COMPLETED DATE/TIME: 11/03/2016 4:58 pm REASON FOR STUDY: SPRAIN OF CALCANEOFIBULAR LIGAMENT OF LEFT ANKLE, INIT S93.412A SPRAIN OF CALCANE OFIBULAR LIGAMENT OF LEFT ANKLE, I COMPARISON: None. NUMBER OF VIEWS: Three views. TECHNIQUE: AP, lateral, and oblique radiographic images acquired of the left ankle. LIMITATIONS: None. FINDINGS: MINERALIZATION: Normal. BONES: No acute fracture or dislocation. There appears to be mild cystic change in the navicular. P lantar calcaneal spur. JOINTS: No effusions. SOFT TISSUES: There is mild soft tissue swelling. Soft tissue calcifications are seen in the subcuta neous tissues over the distal fibula. OTHER: No other significant finding. IMPRESSION: 1. No acute abnormality. 2. Calcaneal spur. 3. Navicular cyst. TECHNICAL DOCUMENTATION: JOB ID: [id number] [employer]- All Rights Reserved
== END ==
LOC: OD 16:45
PROVIDERS: ATTEND Family Medicine
DX: S93.412A Sprain of calcaneofibular ligament of left ankle, initial encounter (principal); X58.XXXA Exposure to other specified factors, initial encounter; Y93.9 Activity, unspecified; Y92.9 Unspecified place or not applicable

== ENCOUNTER 2016-12-24 20:38 | Emergency (ER) | payer MEDICAID, OTHER ==
[2016-12-24] MEDS ORDERED: NORMAL SALINE 1000 ML 1,000 ML IV ONE ×2 (22:23→23:20)
[2016-12-24 22:35] LABS: ABSOLUTE EOSINOPHILS # (AUTO) 0.1 10^3/uL (0.0-0.6); ABSOLUTE MONOCYTES (AUTO) 0.5 10^3/uL (0.1-1.4); ABSOLUTE NEUT (AUTO) 3.7 10^3/uL (1.7-8.2); BASOPHILS % (AUTO) 0.7 % (0-2); EOSINOPHILS % (AUTO) 1.7 % (0-6); HEMATOCRIT 37.1 % (36.0-47.0); HEMOGLOBIN 12.7 g/dL (12.0-15.5); LYMPHOCYTES % (AUTO) 31.1 % (13-45); MEAN CORPUSCULAR HEMOGLOBIN 34.7 pg (27.0-33.4); MEAN CORPUSCULAR HGB CONC 34.2 g/dL (32.0-36.0); MEAN CORPUSCULAR VOLUME 102 fl (80-97); MONOCYTES % (AUTO) 7.4 % (3-13); RED BLOOD COUNT 3.65 10^6/uL (3.72-5.28); RED CELL DISTRIBUTION WIDTH 22.3 % (11.5-14.0); SEGMENTED NEUTROPHILS % (AUTO) 59.1 % (42-78); VENOUS BLOOD BASE EXCESS -1.2 mmol/L; VENOUS BLOOD HCO3 24.9 mmol/L (20-32); VENOUS BLOOD PCO2 46.8 mmHg (35-63); VENOUS BLOOD PH 7.34 (7.30-7.42); WHITE BLOOD COUNT 6.3 10^3/uL (4.0-10.5)
[2016-12-24 22:40] LABS: PROTHROMBIN TIME 12.5 SEC (11.4-15.4)
[2016-12-24 22:41] LABS: ALANINE AMINOTRANSFERASE 234 U/L (9-52); ALBUMIN 4.6 g/dL (3.5-5.0); ALKALINE PHOSPHATASE 274 U/L (38-126); ANION GAP 17 (5-19); ASPARTATE AMINO TRANSFERASE 362 U/L (14-36); BILIRUBIN,DIRECT 1.9 mg/dL (0.0-0.4); BILIRUBIN,TOTAL 2.7 mg/dL (0.2-1.3); BLOOD UREA NITROGEN 3 mg/dL (7-20); CALCIUM 10.3 mg/dL (8.4-10.2); CARBON DIOXIDE 21 mmol/L (22-30); CHLORIDE 92 mmol/L (98-107); CREATININE RESULT 0.64 mg/dL (0.52-1.25); GLUCOSE 199 mg/dL (75-110); POTASSIUM 4.6 mmol/L (3.6-5.0); SODIUM 130.3 mmol/L (137-145); TOTAL PROTEIN 8.2 g/dL (6.3-8.2)
--- NOTE | 2016-12-24 23:18 | ER Document Report ---
ED General - General Chief Complaint: Chest Pain Stated Complaint: CHEST PAIN/NUMBNESS HAND AND ARM Time Seen by Provider: 12/24/16 22:02 Notes: Patient is 46-year-old female presents with complaints of 1 week of vomiting diarrhea. She also has some pain in her epigastrium that radiates into her chest. This is also been ongoing for a week. She said she had a temp of 102 two days ago. No fever since then. She feels dehydrated. She has had some cough runny nose and congestion as well. She has had one family member had an ear infection but no other symptoms. No other sick contacts that she is aware of. No blood in her stool. Patient does have a history of gastric bypass surgery in 2009. This was performed in [place]. She is also had a cholecystectomy. Dysuria. No urinary frequency. No abnormal vaginal discharge or bleeding. No other complaints at this time. TRAVEL OUTSIDE OF THE [place] IN LAST 30 DAYS: No - Related Data Allergies/Adverse Reactions: Beef Containing Products Allergy (Verified 09/14/16 07:34) Anaphylaxis morphine [Morphine] Allergy (Verified 09/14/16 07:34) nitrofurantoin [From Macrobid] Allergy (Verified 09/14/16 07:34) nitrofurantoin macrocrystalline [From Macrobid] Allergy (Verified 09/14/16 07:34 ) Sulfa (Sulfonamide Antibiotics) Allergy (Verified 09/14/16 07:34) sulfamethoxazole [From Bactrim] Allergy (Verified 09/14/16 07:34) trimethoprim [From Bactrim] Allergy (Verified 09/14/16 07:34) Past Medical History - Social History Smoking Status: Current Every Day Smoker Chew tobacco use (# tins/day): No Frequency of alcohol use: Heavy Drug Abuse: None Family History: Reviewed & Not Pertinent, CAD, Malignancy Patient has suicidal ideation: No Patient has homicidal ideation: No - Past Medical History Cardiac Medical History: Reports: Hx Hypertension Pulmonary Medical History: Reports: Hx Asthma Endocrine Medical History: Reports: Hx Diabetes Mellitus Type 2 Renal/ Medical History: Denies: Hx Peritoneal Dialysis GI Medical History: Reports: Hx Ulcer Psychiatric Medical History: Reports: Hx Depression Past Surgical History: Reports: Hx Abdominal Surgery - GBP, Hx Cholecystectomy, Hx Gastric Bypass Surgery, Hx Tonsillectomy - Immunizations Immunizations up to date: Yes Hx Diphtheria, Pertussis, Tetanus Vaccination: Yes - 2017 Review of Systems - Review of Systems Notes: My Normal Review Basic REVIEW OF SYSTEMS: CONSTITUTIONAL : Fever 2 days ago EENT: Nasal congestion CARDIOVASCULAR: Her minute chest pain. RESPIRATORY: Cough. GASTROINTESTINAL: Epigastric abdominal pain. Vomiting and diarrhea. GENITOURINARY: Denies difficulty urinating, painful urination, burning, frequency, or blood in urine. FEMALE GENITOURINARY: Denies vaginal bleeding, abnormal or irregular periods. MUSCULOSKELETAL: Denies neck or back pain or joint pain or swelling. SKIN: Denies rash or skin lesions. NEUROLOGICAL: Denies altered mental status or loss of consciousness. Denies headache. Denies weakness or paralysis or loss of use of either side. Denies problems with gait or speech. Denies sensory or motor loss. ALL OTHER SYSTEMS REVIEWED AND NEGATIVE. Physical Exam - Vital signs Vitals: Temp Pulse Resp BP Pulse Ox 98.9 F 107 H 20 102/57 L 97 12/24/16 21:02 12/24/16 21:02 12/24/16 21:02 12/24/16 21:02 12/24/16 21:02 - Notes Notes: General Appearance: Well nourished, alert, cooperative, no acute distress, no obvious discomfort. Vitals: reviewed, See vital signs table. Head: no swelling or tenderness to the head Eyes: PERRL, EOMI, Conjuctiva clear Mouth: No decreasd moisture Throat: No tonsillar inflammation, No airway obstruction, No lymphadenopathy Ears: Normal-appearing tympanic membranes bilaterally. Neck: Supple, no neck tenderness, No thyromegaly Lungs: No wheezing, No rales, No rhonci, No accessory muscle use, good air exchange bilaterally. Heart: Normal rate, Regular rythm, No murmur, no rub Abdomen: Normal BS, soft, No rigidity, No reducible abdominal tenderness to palpation, No guarding, no rebound, no abdominal masses, no organomegaly Extremities: strength 5/5 in all extremities, good pulses in all extremities, no swelling or tenderness in the extremities, no edema. Skin: warm, dry, appropriate color, no rash Neuro: speech clear, oriented x 3, normal affect, responds appropriately to questions. Course - Re-evaluation Re-evalutation: 12/25/16 00:21 Patient has what appears to be some alcohol with. Heart rate still bit high and scallop of tremor. She does admit to me now that she does drink alcohol every day. This would explain why her liver enzymes are elevated and she admits that her liver enzymes are chronically elevated because of her alcohol abuse. She still is coughing. Abdominal pain started improve some. Due to her history of gastric bypass we will perform a quick CT scan with oral and IV contrast to make sure that this is okay. In the meantime I will be treating her with benzodiazepines to help prevent withdrawal. Patient is agreeable to this plan. 12/25/16 05:48 CT scan showed fatty infiltration of the bowel wall consistent with chronic colitis and possible stricture vs. fistula. I discussed this with the radiologist ( Dr. Nguyễn). He says h is considering a stricture of the bowel or fistula because of the linear stranding of contrast throught the bowel. He says if it is a fistula it would be a bowel to adjacent bowel fistula. There is no evidence of obstruction to cause concern for a ture obstructive stricture. He says the fatty infiltration of the bowel wall is consistent with a chronic colitis. He says it could be possibly related to the patient's alcohol history. I later discussed the results with the surgeon (dr. Ortiz) who says based on the read of the CT scan he does not feel the patient needs any type of surgical intervention. I agree with Dr. Ortiz being that the patient looks very well now, has no current pain to palpation of the bowel, and has no evidence of perforation or abscess. I suspect her fever from two days ago is related to her ongoing bronchitis. I have given her an inhaler and placed her on Azithromycin. I have referred her to GI in regards to her colitis and what appears to be alcoholic hepatitis. Patient is scheduled to enter a alcohol treatment center soon. I have prescribed her librium and phenergan to help combat any withdrawl. I sat down and explained the seriousness of alcohol abuse to the patient and her and verbally reviewed her laboratory and radiological results with them. I informed them that continued alcohol abuse will result in worsening colitis, liver failure, and eventual . I informed them that she needs to return to the ER immediately if she develops abdominal pain, recurrent vomiting , fevers, difficulty breathing, or feels that she is worsening in any way. Patient was given hand written discharge instructions because the computers were down at the time of discharge. I printed off all her lab results and CT scan results and informed her to follow up with her doctor with these results as soon as possible. Patient and her agree with plan and were discharged home. - Vital Signs Vital signs: Temp Pulse Resp BP Pulse Ox 98.9 F 107 H 17 132/79 H 97 12/24/16 21:02 12/24/16 21:02 12/25/16 03:01 12/25/16 03:00 12/25/16 03:01 - Laboratory Result Diagrams: 12/24/16 21:30 12/24/16 21:30 Laboratory results interpreted by me: 12/24/16 12/24/16 12/24/16 21:30 21:30 21:30 RBC 3.65 L MCV 102 H MCH 34.7 H RDW 22.3 H Sodium 130.3 L Chloride 92 L Carbon Dioxide 21 L BUN 3 L Glucose 199 H Lactic Acid 2.5 H Calcium 10.3 H Total Bilirubin 2.7 H Direct Bilirubin 1.9 H AST 362 H ALT 234 H Alkaline Phosphatase 274 H Urine Blood Urine Nitrite 12/25/16 00:30 RBC MCV MCH RDW Sodium Chloride Carbon Dioxide BUN Glucose Lactic Acid Calcium Total Bilirubin Direct Bilirubin AST ALT Alkaline Phosphatase Urine Blood SMALL H Urine Nitrite POSITIVE H - EKG Interpretation by Me Additional EKG results interpreted by me: 12/24/16 23:18 EKG is reviewed and interpreted by me. EKG shows sinus tachycardia with a rate of [address] segment elevation or depression. No ischemic T-wave inversions. NV interval, QRS duration, QTc intervals are within normal range. Old EKG for comparison is from September 14, 2016. Discharge - Discharge Clinical Impression: Bronchitis, Alcohol abuse, Vomiting and diarrhea Alcoholic hepatitis Qualifiers: Ascites presence: without ascites Qualified Code(s): K70.10 - Alcoholic hepatitis without ascites Condition: Good Disposition: HOME, SELF-CARE Additional Instructions: Patient was given paper discharge instructions because she was discharged during downtime. Prescriptions: Azithromycin 250 mg PO DAILY #4 tablet Promethazine HCl [Phenergan 25 mg Tablet] 1 tab PO Q6H PRN #15 tablet PRN Reason:
--- NOTE | 2016-12-24 23:19 | RADIOLOGY REPORT (SQ) ---
EXAM DESCRIPTION: ACUTE ABDOMEN SERIES COMPLETED DATE/TIME: 12/24/2016 10:53 pm REASON FOR STUDY: vomiting and diarrhea COMPARISON: None. NUMBER OF VIEWS: Three views. 4 images. TECHNIQUE: Frontal chest, supine abdomen and upright/decubitus abdomen radiographic images acquired. LIMITATIONS: None. FINDINGS: CHEST: Lungs clear of infiltrates. FREE AIR: None. No abnormal gas collections. BOWEL GAS PATTERN: Several nonspecific scattered air-fluid levels of the mid abdomen. Mild nonspecif ic gaseous distention of the splenic flexure. CALCIFICATIONS: No suspicious calcifications. HARDWARE: IUD. Right upper abdominal clips. Suture material of the left upper abdominal quadrant. Surgical clips of the left paracentral abdomen and pelvis. SOFT TISSUES: No gross mass or suggestion of organomegaly. BONES: No acute fracture. No worrisome bone lesions. OTHER: No other significant finding. IMPRESSION: NO RADIOGRAPHIC EVIDENCE FOR ACUTE ABDOMINAL DISEASE. TECHNICAL DOCUMENTATION: JOB ID: [id number] [employer]- All Rights Reserved
[2016-12-25] MEDS ORDERED: DIAZEPAM INJ 10 MG/2 ML DISP.SYRIN IV ONE (00:20)
[2016-12-25 00:53] LABS: APPEARANCE,URINE CLEAR; BILIRUBIN,URINE NEGATIVE (NEGATIVE); GLUCOSE, URINE NEGATIVE (NEGATIVE); KETONES,URINE NEGATIVE (NEGATIVE); LEUKOCYTE ESTERASE,URINE NEGATIVE (NEGATIVE); NITRITE,URINE POSITIVE (NEGATIVE); PROTEIN,URINE NEGATIVE (NEGATIVE); URINE SPECIFIC GRAVITY 1.002; UROBILINOGEN,URINE NEGATIVE mg/dL (<2.0)
[2016-12-25] MEDS ORDERED: LORAZEPAM INJ 2 MG/1 ML VIAL IV ONE (02:43)
[2016-12-25 03:34] VITALS: BP 132/79
[2016-12-25] MEDS ORDERED: ALBUTEROL SULFATE 0.083% NEB 2.5 MG/3 ML AMPUL NEB ONE ×2 (03:51→03:58)
[2016-12-25] MEDS ORDERED: ALBUTEROL SULFATE HFA (90 MCG/PUFF) 8 GM MDI (1 MDI/ER DISP) IH PRN (03:51)
[2016-12-25] MEDS ORDERED: ALBUTEROL SULFATE HFA (90 MCG/PUFF) 8 GM MDI (1 MDI/ER DISP) IH ONE (03:58)
--- NOTE | 2016-12-25 05:45 | RADIOLOGY REPORT (SQ) ---
EXAM DESCRIPTION: CT ABD/PELVIS WITH IV ORAL COMPLETED DATE/TIME: 12/25/2016 3:25 am REASON FOR STUDY: abdominal pain, elevated liver enzymes COMPARISON: 07/24/2015. TECHNIQUE: CT scan of the abdomen and pelvis performed using helical scanning technique with dynamic intravenous contrast injection. No oral contrast. Images reviewed with lung, soft tissue, and bone windows. Reconstructed coronal and sagittal MPR images reviewed. Delayed images for evaluation of the urinary system also acquired. All images stored on PACS. All CT scanners at this facility use dose modulation, iterative reconstruction, and/or weight based d osing when appropriate to reduce radiation dose to as low as reasonably achievable (ALARA). [facility]: Dose Right [facility]: CareDose [facility]: Dose Right [facility]: Teradose 4D [facility]: ColorModules CONTRAST TYPE AND DOSE: contrast/concentration: Isovue 370.00 mg/ml; Total Contrast Delivered: 96.0 ml; Total Saline Delivered: 56.0 ml RENAL FUNCTION: Choose 2. RADIATION DOSE: Up-to-date CT equipment and radiation dose reduction techniques were employed. CTDIv ol: 19.2 mGy. DLP: 2173 mGy-cm.. LIMITATIONS: None. FINDINGS: LOWER CHEST: No significant findings. No nodules or infiltrates. LIVER: Normal size. No masses. No dilated ducts. Moderate hepatic steatosis. SPLEEN: Normal size. No focal lesions. PANCREAS: No masses. No significant calcifications. No adjacent inflammation or peripancreatic fluid collections. Pancreatic duct not dilated. GALLBLADDER: Surgically absent. ADRENAL GLANDS: No significant masses or asymmetry. RIGHT KIDNEY AND URETER: No solid masses. No significant calcifications. No hydronephrosis or hyd roureter. LEFT KIDNEY AND URETER: No solid masses. No significant calcifications. No hydronephrosis or hydr oureter. AORTA AND VESSELS: No aneurysm. No dissection. Renal arteries, SMA, celiac without stenosis. RETROPERITONEUM: No retroperitoneal adenopathy, hemorrhage or masses. BOWEL AND PERITONEAL CAVITY: Fat replacement of right colonic wall suggest prior infectious or inflam matory insult. Strandy intraluminal contrast associated with the right colon in the right mid abdome n which may indicate chronic fistula or stricture, image 27 of series 604 ; no suspicious mass, no ob struction and no free fluid. These findings are relatively new compared with prior CT from July 2015. APPENDIX: Normal. PELVIS: IUD appears in adequate position. 2.1 cm fundal subserosal right paramedial exophytic fibroi d. No free fluid. Normal bladder. ABDOMINAL WALL: No masses. No hernias. BONES: Moderate vacuum disc desiccation. OTHER: No other significant finding. IMPRESSION: Right colitis pattern with possible stricture or fistula. Infectious, inflammatory, katie plastic processes are in the differential diagnosis. Consider GI consultation and/or [address] TECHNICAL DOCUMENTATION: JOB ID: [id number] Quality ID # [id number]: Final reports with documentation of one or more dose reduction techniques (e.g., Au tomated exposure control, adjustment of the mA and/or kV according to patient size, use of iterative reconstruction technique) 2010 [employer]- All Rights Reserved
--- NOTE | 2016-12-25 08:04 | EKG REPORT ---
SEVERITY:- OTHERWISE NORMAL ECG - SINUS TACHYCARDIA : Confirmed by: Mac Elias MD 25-Dec-2016 08:03:28
== END 2016-12-25 05:33 | disposition home or self-care (01) ==
LOC: ER 20:38
DX: J40 Bronchitis, not specified as acute or chronic (principal); K70.10 Alcoholic hepatitis without ascites; R19.7 Diarrhea, unspecified; R11.10 Vomiting, unspecified; F10.10 Alcohol abuse, uncomplicated; R07.9 Chest pain, unspecified; R20.0 Anesthesia of skin; R50.9 Fever, unspecified; F17.200 Nicotine dependence, unspecified, uncomplicated
CPT/HCPCS: 93005; 99285; 96361; 96374; 96375; 36415; 87040; 87086; 85025; 85610; 87088; 80053; 81001; 87186; 82803; 83605; 87804; 74022; 74177; 93010; J3360; J2060; J7030

== ENCOUNTER 2016-12-29 18:45 | Inpatient (IN) | payer MEDICAID ==
[2016-12-29] MEDS ORDERED: NORMAL SALINE 1000 ML 1,000 ML IV ONE ×2 (19:11→21:03)
--- NOTE | 2016-12-29 19:17 | ER Document Report ---
ED Medical Screen (RME) - General Chief Complaint: Dizziness Stated Complaint: BLOOD PRESSURE ISSUES Time Seen by Provider: 12/29/16 19:11 Notes: Patient reports being lightheaded and dizzy. Patient was seen here approximately 5 days ago and diagnosed with alcohol withdrawal and some intestinal abnormalities on CT scan. Patient denies any vomiting or diarrhea. She denies any pain. She denies any new medications except Cipro she received 5 days ago for urinary tract infection. She does not take blood pressure medications. TRAVEL OUTSIDE OF THE [place] IN LAST 30 DAYS: No - Related Data Allergies/Adverse Reactions: morphine [Morphine] Allergy (Verified 12/29/16 18:59) nitrofurantoin [From Macrobid] Allergy (Verified 12/29/16 18:59) nitrofurantoin macrocrystalline [From Macrobid] Allergy (Verified 12/29/16 18:59 ) Sulfa (Sulfonamide Antibiotics) Allergy (Verified 12/29/16 18:59) sulfamethoxazole [From Bactrim] Allergy (Verified 12/29/16 18:59) trimethoprim [From Bactrim] Allergy (Verified 12/29/16 18:59) bees Allergy (Uncoded 12/29/16 19:00) Past Medical History - Past Medical History Cardiac Medical History: Reports: Hx Hypertension Pulmonary Medical History: Reports: Hx Asthma Endocrine Medical History: Reports: Hx Diabetes Mellitus Type 2 Renal/ Medical History: Denies: Hx Peritoneal Dialysis GI Medical History: Reports: Hx Ulcer Psychiatric Medical History: Reports: Hx Depression Past Surgical History: Reports: Hx Abdominal Surgery - GBP, Hx Cholecystectomy, Hx Gastric Bypass Surgery, Hx Tonsillectomy - Immunizations Immunizations up to date: Yes Hx Diphtheria, Pertussis, Tetanus Vaccination: Yes - 2016 Physical Exam - Vital signs Vitals: Temp Pulse Resp BP Pulse Ox 98.6 F 89 18 78/43 L 93 12/29/16 19:01 12/29/16 19:01 12/29/16 19:01 12/29/16 19:01 12/29/16 19:01 Course - Vital Signs Vital signs: Temp Pulse Resp BP Pulse Ox 98.6 F 89 18 78/43 L 93 12/29/16 19:01 12/29/16 19:01 12/29/16 19:01 12/29/16 19:01 12/29/16 19:01
--- NOTE | 2016-12-29 20:25 | EKG REPORT ---
SEVERITY:- BORDERLINE ECG - SINUS RHYTHM BORDERLINE INFERIOR Q WAVES : Confirmed by: Chloe Marroquin 29-Dec-2016 20:25:04
--- NOTE | 2016-12-29 20:35 | RADIOLOGY REPORT (SQ) ---
EXAM DESCRIPTION: CHEST SINGLE VIEW COMPLETED DATE/TIME: 12/29/2016 7:43 pm REASON FOR STUDY: low bp, cough COMPARISON: 06/09/2016 EXAM PARAMETERS: NUMBER OF VIEWS: One view. TECHNIQUE: Single frontal radiographic view of the chest acquired. RADIATION DOSE: NA LIMITATIONS: None. FINDINGS: LUNGS AND PLEURA: No acute opacities, masses or pneumothorax. No pleural effusion. MEDIASTINUM AND HILAR STRUCTURES: Stable. HEART AND VASCULAR STRUCTURES: Heart normal in size. Normal vasculature. BONES: No acute findings. HARDWARE: None in the chest. OTHER: No other significant finding. IMPRESSION: NO ACUTE RADIOGRAPHIC FINDING IN THE CHEST. TECHNICAL DOCUMENTATION: JOB ID: [id number]
[2016-12-29 20:47] LABS: VENOUS BLOOD BASE EXCESS -1.4 mmol/L; VENOUS BLOOD HCO3 24.9 mmol/L (20-32); VENOUS BLOOD PCO2 48.4 mmHg (35-63); VENOUS BLOOD PH 7.33 (7.30-7.42)
[2016-12-29 20:54] LABS: HEMATOCRIT 33.7 % (36.0-47.0); HEMOGLOBIN 11.5 g/dL (12.0-15.5); HGB HCT DIFFERENCE 0.8; MEAN CORPUSCULAR HEMOGLOBIN 35.5 pg (27.0-33.4); MEAN CORPUSCULAR HGB CONC 34.2 g/dL (32.0-36.0); MEAN CORPUSCULAR VOLUME 104 fl (80-97); RED BLOOD COUNT 3.25 10^6/uL (3.72-5.28); RED CELL DISTRIBUTION WIDTH 23.7 % (11.5-14.0); WHITE BLOOD COUNT 7.5 10^3/uL (4.0-10.5)
[2016-12-29 21:01] LABS: ALANINE AMINOTRANSFERASE 80 U/L (9-52); ALKALINE PHOSPHATASE 148 U/L (38-126); ANION GAP 14 (5-19); ASPARTATE AMINO TRANSFERASE 94 U/L (14-36); BILIRUBIN,DIRECT 0.6 mg/dL (0.0-0.4); BILIRUBIN,TOTAL 0.6 mg/dL (0.2-1.3); BLOOD UREA NITROGEN 8 mg/dL (7-20); CARBON DIOXIDE 22 mmol/L (22-30); CHLORIDE 102 mmol/L (98-107); CREATININE RESULT 1.13 mg/dL (0.52-1.25); GLUCOSE 132 mg/dL (75-110); POTASSIUM 4.4 mmol/L (3.6-5.0); SODIUM 137.7 mmol/L (137-145); TOTAL PROTEIN 7.5 g/dL (6.3-8.2)
--- NOTE | 2016-12-29 21:02 | ER Document Report ---
ED General - General Information source: Patient TRAVEL OUTSIDE OF THE [place] IN LAST 30 DAYS: No <TONYA WILLINGHAM - Last Filed: 12/29/16 22:41> <VENU WARREN - Last Filed: 12/29/16 23:40> - General Chief Complaint: Dizziness Stated Complaint: BLOOD PRESSURE ISSUES Time Seen by Provider: 12/29/16 19:11 Notes: Patient is a 46-year-old female who presents to the emergency department today secondary to a near syncopal episode that occurred prior to arrival. Patient was was hypotensive here on arrival. Patient was seen and treated here 5 days ago and was started on Cipro secondary to a bowel infection. Patient states she feels worse now than when she was seen 5 days ago. Patient is somewhat of a poor historian. Patient's daughters are at bedside and they report the patient being an alcoholic and inconsistent with her medications including her pain medication. Patient states she did not take any pain medication today but daughter's at bedside state they saw her take some this morning. Patient complains of diarrhea, abdominal pain, vomiting, and dizziness. Patient states multiple times that she feels like "blah". (TONYA WILLINGHAM) - Related Data Allergies/Adverse Reactions: morphine [Morphine] Allergy (Verified 12/29/16 18:59) nitrofurantoin [From Macrobid] Allergy (Verified 12/29/16 18:59) nitrofurantoin macrocrystalline [From Macrobid] Allergy (Verified 12/29/16 18:59 ) Sulfa (Sulfonamide Antibiotics) Allergy (Verified 12/29/16 18:59) sulfamethoxazole [From Bactrim] Allergy (Verified 12/29/16 18:59) trimethoprim [From Bactrim] Allergy (Verified 12/29/16 18:59) bees Allergy (Uncoded 12/29/16 19:00) Past Medical History - General Information source: Patient - Social History Smoking Status: Unknown if Ever Smoked Cigarette use (# per day): No Frequency of alcohol use: None Drug Abuse: None Lives with: Family Family History: Reviewed & Not Pertinent, CAD, Malignancy - Past Medical History Cardiac Medical History: Reports: Hx Hypertension Pulmonary Medical History: Reports: Hx Asthma Endocrine Medical History: Reports: Hx Diabetes Mellitus Type 2 GI Medical History: Reports: Hx Ulcer Psychiatric Medical History: Reports: Hx Depression Past Surgical History: Reports: Hx Abdominal Surgery - GBP, Hx Cholecystectomy, Hx Gastric Bypass Surgery, Hx Tonsillectomy - Immunizations Immunizations up to date: Yes Hx Diphtheria, Pertussis, Tetanus Vaccination: Yes - 2016 <TONYA WILLINGHAM - Last Filed: 12/29/16 22:41> Review of Systems - Review of Systems Constitutional: No symptoms reported EENT: No symptoms reported Cardiovascular: See HPI, Syncope - near syncope, Dizziness, Other - hypotensive Respiratory: No symptoms reported Gastrointestinal: See HPI, Abdominal pain, Diarrhea, Vomiting Genitourinary: No symptoms reported Female Genitourinary: No symptoms reported Musculoskeletal: No symptoms reported Skin: No symptoms reported Hematologic/Lymphatic: No symptoms reported Neurological/Psychological: No symptoms reported -: Yes All other systems reviewed and negative <TONYA WILLINGHAM - Last Filed: 12/29/16 22:41> Physical Exam - Vital signs Interpretation: Hypotensive <TONYA WILLINGHAM - Last Filed: 12/29/16 22:41> <VENU WARREN - Last Filed: 12/29/16 23:40> - Vital signs Vitals: Temp Pulse Resp BP Pulse Ox 98.6 F 89 18 78/43 L 93 12/29/16 19:01 12/29/16 19:01 12/29/16 19:01 12/29/16 19:01 12/29/16 19:01 - Notes Notes: Physical Exam: General: Drowsy but arousable. HEENT: Normocephalic. Atraumatic. PERRL. Extraocular movements intact. Oropharynx clear. Dry mucous membranes. Neck: Supple. Non-tender. Respiratory: No respiratory distress. Clear and equal breath sounds bilaterally. Cardiovascular: Regular rate and rhythm. Abdominal: Obese. Non-tender. No distension. Normal Bowel Sounds. Back: Non-tender. No deformity or step off. Extremities: Moves all four extremities. Upper extremities: Normal inspection. Normal ROM. Lower extremities: Normal inspection. No edema. Normal ROM. Neurological: Normal cognition. AAOx4. Normal speech. Psychological: Normal affect. Normal Mood. Skin: Warm. Dry. Normal color. (TONYA WILLINGHAM) Course - Laboratory Result Diagrams: 12/29/16 20:25 12/29/16 20:25 <TONYA WILLINGHAM - Last Filed: 12/29/16 22:41> - Laboratory Result Diagrams: 12/29/16 20:25 12/29/16 20:25 - Diagnostic Test Radiology reviewed: Reports reviewed - EKG Interpretation by Me EKG shows normal: Sinus rhythm Rate: Normal Rhythm: NSR <VENU WARREN - Last Filed: 12/29/16 23:40> - Re-evaluation Re-evalutation: 12/29/16 23:38 Patient is a 46-year-old female who comes in with drowsiness and low blood pressure. Patient had stated that she has had vomiting and diarrhea although her family states that they do not think that this is the case. Patient has been drinking despite taking Librium at home. Patient's blood pressure responded well to flumazenil. Patient is apparently been drinking and her alcohol level is 256. Patient was discussed with the hospitalist service and patient will be kept in the hospital due to her low blood pressure. Of note, no response to Narcan. Stable at time of admission. (VENU WARREN) - Vital Signs Vital signs: Temp Pulse Resp BP Pulse Ox 98.4 F 89 19 104/73 100 12/29/16 22:30 12/29/16 19:01 12/29/16 23:26 12/29/16 23:26 12/29/16 23:26 - Laboratory Laboratory results interpreted by me: 12/29/16 12/29/16 12/29/16 20:25 20:25 20:25 RBC 3.25 L Hgb 11.5 L Hct 33.7 L MCV 104 H MCH 35.5 H RDW 23.7 H Seg Neuts % (Manual) 40 L Lymphocytes % (Manual) 56 H Est GFR (Non-Af Amer) 52 L Glucose 132 H Direct Bilirubin 0.6 H AST 94 H ALT 80 H Alkaline Phosphatase 148 H Salicylates < 1.0 L Acetaminophen < 10 L Critical Care Note - Critical Care Note Total time excluding time spent on procedures (mins): 60 - Evaluation and management of hypotension, multiple re-evaluations, giving antidote, coordination of admission, counseling of family <VENU WARREN - Last Filed: 12/29/16 23:40> Discharge <TONYA WILLINGHAM - Last Filed: 12/29/16 22:41> - Discharge Admitting Provider: Hospitalist Unit Admitted: ICU <VENU WARREN - Last Filed: 12/29/16 23:40> - Discharge Clinical Impression: Hypotension Qualifiers: Hypotension type: other hypotension type Qualified Code(s): I95.89 - Other hypotension Overdose Qualifiers: Encounter type: initial encounter Injury intent: accidental or unintentional Qualified Code(s): T50.901A - Poisoning by unspecified drugs, medicaments and biological substances, accidental (unintentional), initial encounter Condition: Fair Disposition: ADMITTED INPATIENT Scribe Attestation: 12/29/16 23:39 I personally performed the services described in the documentation, reviewed and edited the documentation which was dictated to the scribe in my presence, and it accurately records my words and actions. (VENU WARREN) Scribe Documentation - Scribe Written by Scribe:: Montse Pedroza, 12/29/2016 2146 acting as scribe for :: Shiv <TONYA WILLINGHAM - Last Filed: 12/29/16 22:41>
[2016-12-29 21:16] LABS: ANISOCYTOSIS 3+; BASOPHILS % (MANUAL) 0 % (0-2); EOSINOPHILS % (MANUAL) 1 % (0-6); LYMPHOCYTES % (MANUAL) 56 % (13-45); TOTAL CELLS COUNTED 100
[2016-12-29] MEDS ORDERED: NALOXONE HCL INJ/PF 0.4 MG/1 ML SDV IV ONE (21:33)
[2016-12-29] MEDS ORDERED: FLUMAZENIL INJ 0.5 MG/5 ML VIAL IV ONE ×3 (21:33→23:36)
[2016-12-29 21:50] LABS: ALCOHOL 265 mg/dL (NONE DETECTED)
[2016-12-29] MEDS ORDERED: CEFTRIAXONE 1 GM/D5W RTU 1 GM/50 ML RTUPB IV ONE (21:54)
[2016-12-29 22:09] LABS: APPEARANCE,URINE CLEAR; BILIRUBIN,URINE NEGATIVE (NEGATIVE); GLUCOSE, URINE NEGATIVE (NEGATIVE); KETONES,URINE NEGATIVE (NEGATIVE); LEUKOCYTE ESTERASE,URINE NEGATIVE (NEGATIVE); NITRITE,URINE NEGATIVE (NEGATIVE); PROTEIN,URINE NEGATIVE (NEGATIVE); URINE SPECIFIC GRAVITY 1.002; UROBILINOGEN,URINE NEGATIVE mg/dL (<2.0)
[2016-12-29] MEDS ORDERED: IPRATROPIUM/ALBUTEROL 0.5-2.5 MG/3 ML AMPUL NEB PRN (22:49)
[2016-12-29] MEDS ORDERED: ACETAMINOPHEN 325 MG TABLET PO PRN (22:49)
[2016-12-29] MEDS ORDERED: MAG HYDROX/AL HYDROX/SIMETH SUSP 30 ML UDCUP PO PRN (22:49)
[2016-12-29] MEDS ORDERED: TRAZODONE HCL 50 MG TABLET PO PRN (23:00)
[2016-12-29 23:01] LABS: URINE BARBITURATES SCREEN NEGATIVE; URINE METHADONE SCREEN NEGATIVE; URINE OPIATES LOW NEGATIVE; URINE PHENCYCLIDINE SCREEN NEGATIVE
[2016-12-29] MEDS ORDERED: FOLIC ACID INJ 5 MG/1 ML 10 ML VIAL IV PRN (23:30)
[2016-12-29] MEDS ORDERED: THIAMINE HCL 100 MG, FOLIC ACID 1 MG in NORMAL SALINE 250 ML IV ONE (23:30)
[2016-12-29] MEDS ORDERED: THIAMINE HCL INJ 200 MG/2 ML VIAL IV PRN (23:30)
[2016-12-29 23:48] LABS: CREATINE KINASE MB 1.61 ng/mL (<4.55)
[2016-12-29 23:58] LABS: TROPONIN I < 0.012 ng/mL
[2016-12-30] MEDS ORDERED: NORMAL SALINE 1000 ML 1,000 ML IV ONE (00:07)
--- NOTE | 2016-12-30 04:13 | PDOC H&P ---
History of Present Illness Admission Date/PCP: 12/29/16 22:49 NATALIIA PAN DO Patient complains of: Near syncope History of Present Illness: JOVANNI RENTERIA is a 46 year old female with a history of chronic pain, COPD, tobacco and alcoholism. Patient been her usual state of health until approximately 48 hours prior to presentation noted by family members with delirium and altered mental status suggestive of prior intoxication. She is brought to the emergency room for evaluation after presyncope found to have a blood pressure in the 70 systolic range she receives Romazicon from ER provider given suspicion of Librium with alcohol use. Patient has a brief improvement of her blood pressure and mental status then referred to the hospitalist for admission. Patient is an extraordinarily poor historian and clearly intoxicated unable to provide history. Past Medical History Cardiac Medical History: Reports: Hypertension Pulmonary Medical History: Reports: Asthma, Bronchitis, Chronic Obstructive Pulmonary Disease (COPD) Endocrine Medical History: Reports: Diabetes Mellitus Type 2 Psychiatric Medical History: Reports: Alcohol Dependency, Depression, Tobacco Dependency Past Surgical History Past Surgical History: Reports: Cholecystectomy, Gastric Bypass Surgery, Tonsillectomy Social History Information Source: Emergency Med Personnel, [facility] Records Lives with: Family Smoking Status: Unknown if Ever Smoked Frequency of Alcohol Use: Heavy - Patient reports she drinks all day every day Hx Recreational Drug Use: No Drugs: None Hx Prescription Drug Abuse: No - Advance Directive Resuscitation Status: Full Code Family History Family History: CAD, Malignancy Parental Family History Reviewed: Yes Children Family History Reviewed: Yes Sibling(s) Family History Reviewed.: Yes Medication/Allergy Home Medications: Escitalopram Oxalate [Lexapro] 20 mg PO DAILY 08/29/16 Lisinopril [Lisinopril] 20 mg PO DAILY 08/29/16 Metformin HCl [Metformin HCl] 500 mg PO BID 08/29/16 Trazodone HCl 100 mg PO QHS PRN 08/29/16 Lorazepam [Ativan 0.5 mg Tablet] 0.5 mg PO TID PRN #30 tab 08/30/16 Lorazepam [Ativan 0.5 mg Tablet] 0.5 mg PO TID #30 tab 09/14/16 Ondansetron [Zofran Odt 4 mg Tablet] 1 - 2 tab PO Q4H PRN #15 tab.rapdis Azithromycin 250 mg PO DAILY #4 tablet 12/25/16 Promethazine HCl [Phenergan 25 mg Tablet] 1 tab PO Q6H PRN #15 tablet 12/25/16 Allergies/Adverse Reactions: morphine [Morphine] Allergy (Verified 12/29/16 18:59) nitrofurantoin [From Macrobid] Allergy (Verified 12/29/16 18:59) nitrofurantoin macrocrystalline [From Macrobid] Allergy (Verified 12/29/16 18:59 ) Sulfa (Sulfonamide Antibiotics) Allergy (Verified 12/29/16 18:59) sulfamethoxazole [From Bactrim] Allergy (Verified 12/29/16 18:59) trimethoprim [From Bactrim] Allergy (Verified 12/29/16 18:59) bees Allergy (Uncoded 12/29/16 19:00) Review of Systems ROS unobtainable: Due to mental status Physical Exam Vital Signs: Temp Pulse Resp BP Pulse Ox 98.6 F 81 17 120/84 90 L 12/30/16 02:50 12/30/16 03:43 12/30/16 03:17 12/30/16 03:36 12/30/16 03:36 Intake & Output 12/28/16 12/29/16 12/30/16 11:59 11:59 11:59 Weight 96.9 kg General appearance: PRESENT: disheveled, mild distress. ABSENT: cooperative, hard of hearing Head exam: PRESENT: atraumatic Eye exam: PRESENT: conjunctiva pink, EOMI, PERRLA. ABSENT: scleral icterus Ear exam: PRESENT: normal external ear exam Mouth exam: PRESENT: moist, tongue midline Neck exam: ABSENT: carotid bruit, JVD, lymphadenopathy, thyromegaly Respiratory exam: PRESENT: clear to auscultation kristina, crackles. ABSENT: rales, rhonchi, wheezes Cardiovascular exam: PRESENT: RRR. ABSENT: diastolic murmur, rubs, systolic murmur Pulses: PRESENT: normal dorsalis pedis pul Vascular exam: PRESENT: normal capillary refill GI/Abdominal exam: PRESENT: normal bowel sounds, soft. ABSENT: distended, guarding, mass, organolmegaly, rebound, tenderness Rectal exam: PRESENT: deferred Extremities exam: PRESENT: full ROM. ABSENT: calf tenderness, clubbing, pedal edema Neurological exam: PRESENT: alert, awake, oriented to person, oriented to place , oriented to time, oriented to situation, CN II-XII grossly intact. ABSENT: motor sensory deficit Psychiatric exam: PRESENT: appropriate affect, normal mood. ABSENT: homicidal ideation, suicidal ideation Skin exam: PRESENT: dry, intact, warm. ABSENT: cyanosis, rash Results Laboratory Results: 12/29/16 12/29/16 23:05 23:05 Creatine Kinase 107 CK-MB (CK-2) 1.61 Troponin I < 0.012 Impressions: Chest X-Ray 12/29/16 19:11 IMPRESSION: NO ACUTE RADIOGRAPHIC FINDING IN THE CHEST. Assessment & Plan - Diagnosis (1) Alcohol intoxication Is this a current diagnosis for this admission?: Yes Plan: Thiamine and folate, Ativan as needed supportive care and discharge planning consult (2) Hypotension Qualifiers: Hypotension type: other hypotension type Qualified Code(s): I95.89 - Other hypotension Is this a current diagnosis for this admission?: Yes Plan: Patient has required 4 L of normal saline will continue to fluid challenge and consider pressor or Romazicon if M AP less than 60. (3) Overdose Qualifiers: Encounter type: initial encounter Injury intent: accidental or unintentional Qualified Code(s): T50.901A - Poisoning by unspecified drugs, medicaments and biological substances, accidental (unintentional), initial encounter Is this a current diagnosis for this admission?: Yes Plan: Suspected overdose will obtain urine tox screen - Time Time Spent: 30 to 50 Minutes - Inpatient Certification Medical Necessity: Need Close Monitoring Due to Risk of Patient Decompensation
[2016-12-30 05:59] LABS: ABSOLUTE EOSINOPHILS # (AUTO) 0.1 10^3/uL (0.0-0.6); ABSOLUTE LYMPHOCYTES (AUTO) 1.9 10^3/uL (0.5-4.7); ABSOLUTE MONOCYTES (AUTO) 0.5 10^3/uL (0.1-1.4); ABSOLUTE NEUT (AUTO) 2.1 10^3/uL (1.7-8.2); BASOPHILS % (AUTO) 0.5 % (0-2); EOSINOPHILS % (AUTO) 2.4 % (0-6); HEMATOCRIT 27.9 % (36.0-47.0); HEMOGLOBIN 9.9 g/dL (12.0-15.5); HGB HCT DIFFERENCE 1.8; LYMPHOCYTES % (AUTO) 41.7 % (13-45); MEAN CORPUSCULAR HEMOGLOBIN 36.6 pg (27.0-33.4); MEAN CORPUSCULAR HGB CONC 35.5 g/dL (32.0-36.0); MEAN CORPUSCULAR VOLUME 103 fl (80-97); MONOCYTES % (AUTO) 9.8 % (3-13); RED BLOOD COUNT 2.72 10^6/uL (3.72-5.28); RED CELL DISTRIBUTION WIDTH 23.5 % (11.5-14.0); SEGMENTED NEUTROPHILS % (AUTO) 45.6 % (42-78); WHITE BLOOD COUNT 4.7 10^3/uL (4.0-10.5)
[2016-12-30] MEDS: HEPARIN SOD (PORCINE) 5,000 UNIT/ML 1 ML SYRINGE SUBCUT SCH ×3 (06:00→21:31)
[2016-12-30 06:03] LABS: ALANINE AMINOTRANSFERASE 70 U/L (9-52); ALKALINE PHOSPHATASE 130 U/L (38-126); ANION GAP 10 (5-19); ASPARTATE AMINO TRANSFERASE 68 U/L (14-36); BILIRUBIN,DIRECT 0.4 mg/dL (0.0-0.4); BILIRUBIN,TOTAL 0.6 mg/dL (0.2-1.3); BLOOD UREA NITROGEN 5 mg/dL (7-20); CALCIUM 8.3 mg/dL (8.4-10.2); CARBON DIOXIDE 20 mmol/L (22-30); CHLORIDE 114 mmol/L (98-107); CREATINE KINASE 75 U/L (30-135); GLUCOSE 91 mg/dL (75-110); POTASSIUM 4.7 mmol/L (3.6-5.0); SODIUM 143.8 mmol/L (137-145); TOTAL PROTEIN 5.7 g/dL (6.3-8.2)
[2016-12-30 06:13] LABS: CREATINE KINASE MB 1.23 ng/mL (<4.55); TROPONIN I < 0.012 ng/mL
[2016-12-30 07:07] LABS: ANISOCYTOSIS 2+; HYPOCHROMASIA SLIGHT; POIKILOCYTOSIS SLIGHT; POLYCHROMASIA SLIGHT; STOMATOCYTES SLIGHT; TOXIC GRANULATION SLIGHT
[2016-12-30] MEDS: IPRATROPIUM/ALBUTEROL 0.5-2.5 MG/3 ML AMPUL NEB SCH ×2 (08:35→19:53)
[2016-12-30] MEDS ORDERED: DOCUSATE SODIUM 100 MG/10 ML UDC PO SCH (10:00)
[2016-12-30] MEDS: ESCITALOPRAM OXALATE 10 MG TABLET PO SCH (10:18)
[2016-12-30] MEDS: THIAMINE HCL 100 MG, FOLIC ACID 1 MG in NORMAL SALINE 250 ML IV SCH (10:18)
[2016-12-30 12:05] LABS: TROPONIN I < 0.012 ng/mL
--- NOTE | 2016-12-30 16:12 | PSYCHOLOGICAL NOTE ---
Psych Note - Psych Note Psych Note: Patient is a 46-year-old female who has been admitted to [facility] due to altered mental status, acute alcohol intoxication and alcohol withdrawal. Patient today states she thinks she took too much Librium. Patient reports she is withdrawing and is visibly shaking both tremulous in the hands, tongue and overall body. Patient denies suicidal ideations. Patient reports she had achieved sobriety 9 months, but when her brother a few months ago she relapsed with alcohol. Patient reports for the past 2 or so months she has been drinking from the time she wakes up to the time she goes to sleep. She states she is on probation for a DWI offense, and goes through [facility] in [place]. Patient reports her embedded case manager at [facility] has secured her a bed and black eYeka at a 3 month residential substance abuse treatment program. Patient reports she is prepared to go. Patient reports this is what she wants and plans to follow through. She acknowledges that she has experienced suicidal ideations in the past, which is well documented throughout her EMR. Patient significant other is bedside and she provides verbal consent to speak with and in front of him. Significant other (SO) Drew [phone] states the patient has been doing well in regards to her depression. He states he is in agreement with the plan for her to go to [facility] as recommended by her TASK fiber heel piece shaper Leilani. SO reports the patient has not been expressing suicidal ideations. He states he is concerned for her alcohol withdrawal at this time and concerned for potential seizures. He reports patient has a history of alcohol withdrawal related seizures. Significant other states he is not concerned the patient will attempt to harm herself upon discharge and is in agreement to manage medications and provide increased "supervision" as well as assist the patient in following through with the TASK requirements. SO states the patient has an appointment this with her embedded case manager. Patient is alert and oriented. Mood is anxious with congruent affect. Patient denies suicidal/homicidal ideations, intent, plan, means. Patient denies A/VH; delusions not noted. Thought processes were organized and rational. Conversational speech was shaky for rate, tone, and prosody. Intellectual abilities were estimated within average range. Attention and focus were poor. Insight, judgment, impulse control are poor. Diagnosis: 303.90 (F10.20) Alcohol Use Disorder, Moderate Patient is psychiatrically cleared for discharge to follow up with her plan to enter treatment via TASK. Patient denies suicidal ideations which is corroborated by her significant other who is bedside. Patient does have a history of suicidal ideation; however, denies any recent episodes. Patient states her primary concern at this time is her alcohol withdrawal symptoms, and being able to meet with her embedded case manager at this . Discussed with patient's RN her symptoms and requests at this time. Will contact hospitalist to make aware of disposition and any recommendations. Consulted with Dr. Arias in regards to the care and management of this patient. You kindly for this referral.
[2016-12-30] MEDS ORDERED: LORAZEPAM INJ 2 MG/1 ML VIAL IV PRN (17:21)
[2016-12-30] MEDS: OXYCODONE HCL IR 5 MG TABLET PO PRN (18:08)
[2016-12-30] MEDS: DIAZEPAM 5 MG TABLET PO PRN (18:28)
--- NOTE | 2016-12-30 18:32 | PDOC PROGRESS REPORT ---
Subjective Progress Note for:: 12/30/16 Subjective:: Patient states that her plans when she leaves the hospital is to go to [place] for detox. I try to explain to her that she is currently in detox and that she is being treated for alcohol withdrawal now. The patient states she just wants to leave. I told her that she is at risk for having seizures or from acute alcohol withdrawal. The patient has had seizures from alcohol withdrawal in the past. The patient asks me to nicely discharged her. I have respectfully told her no. She has been seen already by the psychologist and I reviewed that note. Patient also says that her back hurts and she wants to know why she has not gotten her pain medication. The pain medications have been ordered since this morning. Her nurse tells me that she has never complained of pain. Before I leave the room the patient tells me that she has not worried so much about the pain medicine as so the tremors that she has and medication for that. Currently the patient denies any visual, tactile or auditory hallucinations. Physical Exam Vital Signs: Temp Pulse Resp BP Pulse Ox 98.1 F 96 18 132/91 H 97 12/30/16 15:31 12/30/16 15:31 12/30/16 15:31 12/30/16 15:31 12/30/16 15:31 Intake & Output 12/29/16 12/30/16 12/31/16 06:59 06:59 06:59 Intake Total 750 Balance 750 Weight 97 kg GENERAL: This is a well-developed well-nourished appearing overweight white female resting in bed currently in no acute distress. HEART: Tachycardic at the bedside. No murmurs rubs or gallops. LUNGS: Clear to auscultation bilaterally with equal rise and fall of the chest. ABDOMEN: Soft, nontender, nondistended with normoactive bowel sounds EXTREMETIES: No clubbing, cyanosis or edema. 2+ peripheral pulses bilaterally. NEURO: Awake, alert and oriented 3. Cranial nerves II through XII are grossly intact. The patient is tremulous shakes in her arms and hands. She appears to be slightly agitated. Results Laboratory Results: 12/30/16 05:01 12/30/16 05:01 12/30/16 12/30/16 05:01 05:01 WBC 4.7 RBC 2.72 L Hgb 9.9 L Hct 27.9 L MCV 103 H MCH 36.6 H MCHC 35.5 RDW 23.5 H Plt Count 175 Seg Neutrophils % 45.6 Lymphocytes % 41.7 Monocytes % 9.8 Eosinophils % 2.4 Basophils % 0.5 Absolute Neutrophils 2.1 Absolute Lymphocytes 1.9 Absolute Monocytes 0.5 Absolute Eosinophils 0.1 Absolute Basophils 0.0 Sodium 143.8 Potassium 4.7 Chloride 114 H Carbon Dioxide 20 L Anion Gap 10 BUN 5 L Creatinine 0.60 Est GFR ( Amer) > 60 Est GFR (Non-Af Amer) > 60 Glucose 91 Calcium 8.3 L Total Bilirubin 0.6 AST 68 H ALT 70 H Alkaline Phosphatase 130 H Total Protein 5.7 L Albumin 3.0 L 12/29/16 12/29/16 12/30/16 23:05 23:05 05:01 Creatine Kinase 107 75 CK-MB (CK-2) 1.61 Troponin I < 0.012 12/30/16 12/30/16 12/30/16 05:01 11:14 11:14 Creatine Kinase 61 CK-MB (CK-2) 1.23 0.80 Troponin I < 0.012 < 0.012 Impressions: Chest X-Ray 12/29/16 19:11 IMPRESSION: NO ACUTE RADIOGRAPHIC FINDING IN THE CHEST. Assessment & Plan - Diagnosis (1) Alcohol intoxication Qualifiers: Complication of substance-induced condition: with unspecified complication Qualified Code(s): F10.929 - Alcohol use, unspecified with intoxication, unspecified Is this a current diagnosis for this admission?: Yes Plan: As needed Ativan every 8 hours IV will be available. In the meantime were going to start scheduled Valium at 5 mg p.o. every 6 hours. Seizure precautions. The patient has plans for rehab after discharge. I have explained to the patient the risks of her leaving the hospital going through acute withdrawal to include but not limited to seizures, , elevated heart rates, elevated blood pressures in general unwell feeling. (2) Hypotension Qualifiers: Hypotension type: other hypotension type Qualified Code(s): I95.89 - Other hypotension Is this a current diagnosis for this admission?: Yes Plan: Resolved. This could be a part of her alcohol withdrawal although usually it is associated with hypertension. (3) Alcohol abuse Plan: Continuous alcohol abuse with beer and liquor. The patient states that she usually drinks from sun up to sun down and she can consume a case of beer a day or a few bottles of wine. (4) HTN (hypertension) Plan: Continue lisinopril. (5) Tobacco dependency Plan: Smoking cessation is advised. The patient will be given a nicotine patch. (6) Diabetes mellitus type 2 in nonobese Plan: Continue Accu-Cheks and sliding scale insulin. - Time Time Spent with patient: 15-24 minutes - Inpatient Certification Medical Necessity: Need Close Monitoring Due to Risk of Patient Decompensation
[2016-12-30] MEDS ORDERED: NICOTINE 21 MG/24 HR PATCH.TD24 TD ONE (19:30)
[2016-12-31] MEDS: OXYCODONE HCL IR 5 MG TABLET PO PRN ×2 (00:25→06:33)
[2016-12-31] MEDS: DIAZEPAM 5 MG TABLET PO PRN (00:25)
[2016-12-31] MEDS ORDERED: LORAZEPAM INJ 2 MG/1 ML VIAL IV PRN ×2 (03:06)
[2016-12-31 03:32] LABS: ADD ON TESTING BLD IN LAB ACKNOWLEDGE
[2016-12-31 03:41] LABS: MAGNESIUM 1.5 mg/dL (1.6-2.3)
[2016-12-31] MEDS: MAGNESIUM SULFATE/D5W 1 GM/100 ML RTUPB IV SCH ×2 (05:34→06:33)
[2016-12-31] MEDS: HEPARIN SOD (PORCINE) 5,000 UNIT/ML 1 ML SYRINGE SUBCUT SCH ×3 (05:34→23:10)
[2016-12-31] MEDS: LORAZEPAM INJ 2 MG/1 ML VIAL IV PRN ×4 (07:59→19:41)
[2016-12-31] MEDS: IPRATROPIUM/ALBUTEROL 0.5-2.5 MG/3 ML AMPUL NEB SCH ×2 (08:49→19:58)
[2016-12-31] MEDS: ESCITALOPRAM OXALATE 10 MG TABLET PO SCH (09:23)
[2016-12-31] MEDS: DOCUSATE SODIUM 100 MG CAPSULE PO SCH (09:23)
[2016-12-31] MEDS: THIAMINE HCL 100 MG, FOLIC ACID 1 MG in NORMAL SALINE 250 ML IV SCH (10:18)
[2016-12-31] MEDS ORDERED: DIAZEPAM 5 MG TABLET PO ONE (13:30)
--- NOTE | 2016-12-31 16:04 | PDOC PROGRESS REPORT ---
Subjective Progress Note for:: 12/31/16 Subjective:: No complaints overnight. The patient still feels quite tremulous. She denies any hallucinations. Physical Exam Vital Signs: Temp Pulse Resp BP Pulse Ox 99.0 F 111 H 22 H 144/84 H 98 12/31/16 12:22 12/31/16 14:00 12/31/16 12:22 12/31/16 12:22 12/31/16 12:22 Intake & Output 12/30/16 12/31/16 01/01/17 06:59 06:59 06:59 Intake Total 1750 600 Balance 1750 600 Weight 97 kg 96.9 kg GENERAL: This is a well-developed well-nourished appearing overweight white female resting in bed currently in no acute distress. HEART: Tachycardic at the bedside. No murmurs rubs or gallops. LUNGS: Clear to auscultation bilaterally with equal rise and fall of the chest. ABDOMEN: Soft, nontender, nondistended with normoactive bowel sounds EXTREMETIES: No clubbing, cyanosis or edema. 2+ peripheral pulses bilaterally. NEURO: Awake, alert and oriented 3. Cranial nerves II through XII are grossly intact. The patient is tremulous with shakes in her arms and hands. Her tremors get worse as she tries to feed herself. Results Laboratory Results: 12/30/16 05:01 12/30/16 05:01 12/30/16 12/30/16 11:14 11:14 Magnesium 1.5 L Serum HCG, Qual NEGATIVE 12/29/16 12/29/16 12/30/16 23:05 23:05 05:01 Creatine Kinase 107 75 CK-MB (CK-2) 1.61 Troponin I < 0.012 12/30/16 12/30/16 12/30/16 05:01 11:14 11:14 Creatine Kinase 61 CK-MB (CK-2) 1.23 0.80 Troponin I < 0.012 < 0.012 Impressions: Chest X-Ray 12/29/16 19:11 IMPRESSION: NO ACUTE RADIOGRAPHIC FINDING IN THE CHEST. Assessment & Plan - Diagnosis (1) Alcohol intoxication Qualifiers: Complication of substance-induced condition: with unspecified complication Qualified Code(s): F10.929 - Alcohol use, unspecified with intoxication, unspecified Is this a current diagnosis for this admission?: Yes Plan: As needed Ativan every 4 hours IV will be available. Resume scheduled Valium at 5 mg p.o. every 6 hours. Seizure precautions. The patient has plans for rehab after discharge. (2) Hypotension Qualifiers: Hypotension type: other hypotension type Qualified Code(s): I95.89 - Other hypotension Is this a current diagnosis for this admission?: Yes Plan: Resolved. This could be a part of her alcohol withdrawal although usually it is associated with hypertension. (3) Alcohol abuse Plan: Continuous alcohol abuse with beer and liquor. The patient states that she usually drinks from sun up to sun down and she can consume a case of beer a day or a few bottles of wine. (4) HTN (hypertension) Plan: Continue lisinopril. (5) Tobacco dependency Plan: Smoking cessation is advised. continue nicotine patch. - Time Time Spent with patient: 15-24 minutes - Inpatient Certification Medical Necessity: Need Close Monitoring Due to Risk of Patient Decompensation
[2016-12-31] MEDS: DIAZEPAM 5 MG TABLET PO SCH ×2 (18:57→23:09)
[2017-01-01] MEDS: LORAZEPAM INJ 2 MG/1 ML VIAL IV PRN ×5 (03:09→19:06)
[2017-01-01] MEDS: OXYCODONE HCL IR 5 MG TABLET PO PRN ×4 (03:58→22:51)
[2017-01-01] MEDS: DIAZEPAM 5 MG TABLET PO SCH ×4 (05:24→23:56)
[2017-01-01] MEDS: HEPARIN SOD (PORCINE) 5,000 UNIT/ML 1 ML SYRINGE SUBCUT SCH ×3 (05:24→22:52)
[2017-01-01 05:53] LABS: ABSOLUTE EOSINOPHILS # (AUTO) 0.1 10^3/uL (0.0-0.6); ABSOLUTE LYMPHOCYTES (AUTO) 1.4 10^3/uL (0.5-4.7); ABSOLUTE MONOCYTES (AUTO) 0.4 10^3/uL (0.1-1.4); ABSOLUTE NEUT (AUTO) 3.7 10^3/uL (1.7-8.2); BASOPHILS % (AUTO) 0.4 % (0-2); EOSINOPHILS % (AUTO) 1.6 % (0-6); HEMATOCRIT 31.1 % (36.0-47.0); HEMOGLOBIN 10.6 g/dL (12.0-15.5); HGB HCT DIFFERENCE 0.7; LYMPHOCYTES % (AUTO) 25.6 % (13-45); MEAN CORPUSCULAR HEMOGLOBIN 35.7 pg (27.0-33.4); MEAN CORPUSCULAR HGB CONC 34.2 g/dL (32.0-36.0); MEAN CORPUSCULAR VOLUME 104 fl (80-97); MONOCYTES % (AUTO) 6.9 % (3-13); RED BLOOD COUNT 2.98 10^6/uL (3.72-5.28); RED CELL DISTRIBUTION WIDTH 23.4 % (11.5-14.0); SEGMENTED NEUTROPHILS % (AUTO) 65.5 % (42-78); WHITE BLOOD COUNT 5.6 10^3/uL (4.0-10.5)
[2017-01-01 06:10] LABS: ANION GAP 8 (5-19); BLOOD UREA NITROGEN 7 mg/dL (7-20); CARBON DIOXIDE 23 mmol/L (22-30); CHLORIDE 108 mmol/L (98-107); CREATININE RESULT 0.55 mg/dL (0.52-1.25); GLUCOSE 200 mg/dL (75-110); MAGNESIUM 1.8 mg/dL (1.6-2.3); SODIUM 138.6 mmol/L (137-145)
[2017-01-01 06:14] LABS: TOXIC GRANULATION SLIGHT
[2017-01-01 06:15] LABS: ANISOCYTOSIS 3+; POIKILOCYTOSIS SLIGHT; STOMATOCYTES SLIGHT
[2017-01-01] MEDS: IPRATROPIUM/ALBUTEROL 0.5-2.5 MG/3 ML AMPUL NEB SCH ×2 (08:12→19:52)
--- NOTE | 2017-01-01 09:14 | PDOC PROGRESS REPORT ---
Subjective Progress Note for:: 01/01/17 Subjective:: No complaints overnight. The patient still feels slightly less tremulous. She denies any hallucinations. Physical Exam Vital Signs: Temp Pulse Resp BP Pulse Ox 98.4 F 89 25 H 140/83 H 99 01/01/17 08:29 01/01/17 08:29 01/01/17 08:29 01/01/17 08:29 01/01/17 08:29 Intake & Output 12/31/16 01/01/17 01/02/17 06:59 06:59 06:59 Intake Total 1750 2200 Output Total 1300 Balance 1750 900 Weight 96.9 kg 98.8 kg GENERAL: This is a well-developed well-nourished appearing overweight white female resting in bed currently in no acute distress. HEART: Regular rate and rhythm at the bedside. No murmurs rubs or gallops. LUNGS: Clear to auscultation bilaterally with equal rise and fall of the chest. ABDOMEN: Soft, nontender, nondistended with normoactive bowel sounds EXTREMETIES: No clubbing, cyanosis or edema. 2+ peripheral pulses bilaterally. NEURO: Awake, alert and oriented 3. Cranial nerves II through XII are grossly intact. The patient is tremulous they are pointed out. Her tremors seem to worsen when they are pointed out. Results Laboratory Results: 01/01/17 04:54 01/01/17 04:54 01/01/17 01/01/17 04:54 04:54 WBC 5.6 RBC 2.98 L Hgb 10.6 L Hct 31.1 L MCV 104 H MCH 35.7 H MCHC 34.2 RDW 23.4 H Plt Count 181 Seg Neutrophils % 65.5 Lymphocytes % 25.6 Monocytes % 6.9 Eosinophils % 1.6 Basophils % 0.4 Absolute Neutrophils 3.7 Absolute Lymphocytes 1.4 Absolute Monocytes 0.4 Absolute Eosinophils 0.1 Absolute Basophils 0.0 Sodium 138.6 Potassium 4.0 Chloride 108 H Carbon Dioxide 23 Anion Gap 8 BUN 7 Creatinine 0.55 Est GFR ( Amer) > 60 Est GFR (Non-Af Amer) > 60 Glucose 200 H Calcium 8.0 L Magnesium 1.8 12/29/16 12/29/16 12/30/16 23:05 23:05 05:01 Creatine Kinase 107 75 CK-MB (CK-2) 1.61 Troponin I < 0.012 12/30/16 12/30/16 12/30/16 05:01 11:14 11:14 Creatine Kinase 61 CK-MB (CK-2) 1.23 0.80 Troponin I < 0.012 < 0.012 Impressions: Chest X-Ray 12/29/16 19:11 IMPRESSION: NO ACUTE RADIOGRAPHIC FINDING IN THE CHEST. Assessment & Plan - Diagnosis (1) Alcohol intoxication Qualifiers: Complication of substance-induced condition: with unspecified complication Qualified Code(s): F10.929 - Alcohol use, unspecified with intoxication, unspecified Is this a current diagnosis for this admission?: Yes Plan: As needed Ativan every 4 hours IV will be available. Increase Valium to 10 mg p.o. every 6 hours. Seizure precautions. The patient has plans for rehab after discharge. The patient is using IV Ativan every 2 hours still. (2) Hypotension Qualifiers: Hypotension type: other hypotension type Qualified Code(s): I95.89 - Other hypotension Is this a current diagnosis for this admission?: Yes Plan: Resolved. This could be a part of her alcohol withdrawal although usually it is associated with hypertension. (3) Alcohol abuse Plan: Continuous alcohol abuse with beer and liquor. The patient states that she usually drinks from "sun up to sun down" and she can consume a case of beer a day or a few bottles of wine. (4) HTN (hypertension) Plan: Continue lisinopril. (5) Tobacco dependency Plan: Smoking cessation is advised. continue nicotine patch. - Time Time Spent with patient: 15-24 minutes - Inpatient Certification Medical Necessity: Need Close Monitoring Due to Risk of Patient Decompensation
[2017-01-01] MEDS: ESCITALOPRAM OXALATE 10 MG TABLET PO SCH (09:18)
[2017-01-01] MEDS: THIAMINE HCL 100 MG, FOLIC ACID 1 MG in NORMAL SALINE 250 ML IV SCH (09:18)
[2017-01-01] MEDS: DOCUSATE SODIUM 100 MG CAPSULE PO SCH (09:19)
[2017-01-01] MEDS ORDERED: NICOTINE 21 MG/24 HR PATCH.TD24 TD ONE (18:30)
[2017-01-01] MEDS ORDERED: ALBUTEROL SULFATE HFA (90 MCG/PUFF) 8 GM MDI (1 MDI/ER DISP) IH PRN (23:03)
[2017-01-02] MEDS: LORAZEPAM INJ 2 MG/1 ML VIAL IV PRN ×4 (03:19→15:47)
[2017-01-02 03:55] LABS: APPEARANCE,URINE CLEAR; BILIRUBIN,URINE NEGATIVE (NEGATIVE); GLUCOSE, URINE NEGATIVE (NEGATIVE); KETONES,URINE NEGATIVE (NEGATIVE); LEUKOCYTE ESTERASE,URINE NEGATIVE (NEGATIVE); NITRITE,URINE NEGATIVE (NEGATIVE); PROTEIN,URINE NEGATIVE (NEGATIVE); URINE SPECIFIC GRAVITY 1.004; UROBILINOGEN,URINE NEGATIVE mg/dL (<2.0)
[2017-01-02] MEDS: HEPARIN SOD (PORCINE) 5,000 UNIT/ML 1 ML SYRINGE SUBCUT SCH ×2 (06:11→14:55)
[2017-01-02] MEDS: DIAZEPAM 5 MG TABLET PO SCH ×3 (06:12→17:13)
[2017-01-02] MEDS ORDERED: ALBUTEROL SULFATE HFA (90 MCG/PUFF) 8 GM MDI (1 MDI/ER DISP) IH PRN (06:37)
[2017-01-02] MEDS ORDERED: ALBUTEROL SULFATE HFA (90 MCG/PUFF) 200 PUFF/8.5 GM MDI IH ONE (06:40)
[2017-01-02] MEDS: OXYCODONE HCL IR 5 MG TABLET PO PRN ×2 (07:01→13:06)
[2017-01-02] MEDS: IPRATROPIUM/ALBUTEROL 0.5-2.5 MG/3 ML AMPUL NEB SCH (07:53)
[2017-01-02] MEDS: METFORMIN HCL 500 MG TABLET PO SCH ×2 (08:42→17:13)
[2017-01-02] MEDS: ESCITALOPRAM OXALATE 10 MG TABLET PO SCH (09:48)
[2017-01-02] MEDS: THIAMINE HCL 100 MG, FOLIC ACID 1 MG in NORMAL SALINE 250 ML IV SCH (09:48)
[2017-01-02] MEDS: DOCUSATE SODIUM 100 MG CAPSULE PO SCH (09:49)
[2017-01-02] MEDS ORDERED: NICOTINE 21 MG/24 HR PATCH.TD24 TD SCH (10:00)
[2017-01-02] MEDS ORDERED: LISINOPRIL 10 MG TABLET PO SCH (10:00)
[2017-01-02] MEDS ORDERED: BUSPIRONE HCL 10 MG TABLET PO SCH (10:00)
--- NOTE | 2017-01-02 16:21 | PDOC DISCHARGE SUMMARY ---
General - Admit/Disc Date/PCP Admission Date/Primary Care Provider: 12/29/16 22:49 NATALIIA PAN DO - Discharge Diagnosis (1) Alcohol intoxication Is this a current diagnosis for this admission?: Yes Summary: Resolved (2) Hypotension Is this a current diagnosis for this admission?: Yes Summary: Resolved (3) Alcohol abuse Summary: Continuous use. (5) Tobacco dependency Summary: Smoking cessation is advised. (6) Alcohol withdrawal Summary: Improved. Will discharge with tapering doses of Valium. - Additional Information Resuscitation Status: Full Code Home Medications: Albuterol Sulfate [Proair HFA] 2 puff IH Q4 PRN 12/30/16 Buspirone HCl [Buspar 15 mg Tablet] 15 mg PO BID 12/30/16 Escitalopram Oxalate [Lexapro] 20 mg PO DAILY 12/30/16 Lisinopril [Prinivil] 20 mg PO DAILY 12/30/16 Metformin HCl [Glucophage 500 mg Tablet] 500 mg PO BIDBS 12/30/16 Multivitamin [Daily Multiple Vitamin] 1 each PO DAILY 12/30/16 Oxycodone HCl [Oxycodone HCl 10 MG Tablet] 10 mg PO Q6HP PRN 12/30/16 Phentermine HCl [Adipex-P] 37.5 mg PO [id number] 12/30/16 Tizanidine HCl [Zanaflex] 2 mg PO TIDP PRN 12/30/16 History of Present Illness History of Present Illness: JOVANNI RENTERIA is a 46 year old white female with a past medical history significant for alcohol abuse who presents with alcohol withdrawal symptoms. Please see the history of present illness below as per the admitting physician. Admission Date/PCP: 12/29/16 22:49 NATALIIA PAN DO Patient complains of: Near syncope History of Present Illness: JOVANNI RENTERIA is a 46 year old female with a history of chronic pain, COPD, tobacco and alcoholism. Patient been her usual state of health until approximately 48 hours prior to presentation noted by family members with delirium and altered mental status suggestive of prior intoxication. She is brought to the emergency room for evaluation after presyncope found to have a blood pressure in the 70 systolic range she receives Romazicon from ER provider given suspicion of Librium with alcohol use. Patient has a brief improvement of her blood pressure and mental status then referred to the hospitalist for admission. Patient is an extraordinarily poor historian and clearly intoxicated unable to provide history. Hospital Course Hospital Course: Patient was admitted to the hospital and placed on Ativan as needed. She was quite tremulous. She has a history of withdrawal seizures as per her recollection. When I met the patient I began Valium 5 mg p.o. every 6 hours. Ultimately this had to be titrated up to 10 mg she. She also received as needed IV Ativan. It took a few days but the patient's tremulousness did settle down. The patient told me that she has a plan to go to rehab after discharge. Although I would like to watch her 1 more night, the patient asks if I will be willing to let her go today, as she has a 14-year-old child at home that she really needs to be with. She is doing quite well at this time. She is stable and I think it will be safe to discharge her with tapering doses of Valium. Physical Exam Vital Signs: Temp Pulse Resp BP Pulse Ox 98.7 F 83 20 147/83 H 97 01/02/17 11:29 01/02/17 11:29 01/02/17 11:29 01/02/17 11:29 01/02/17 11:29 Intake & Output 01/01/17 01/02/17 01/03/17 06:59 06:59 06:59 Intake Total 2200 2059 240 Output Total 1300 0 Balance 900 2059 240 Weight 98.8 kg 99.7 kg GENERAL: This is a well-developed well-nourished appearing overweight white female resting in bed currently in no acute distress. HEART: Regular rate and rhythm at the bedside. No murmurs rubs or gallops. LUNGS: Clear to auscultation bilaterally with equal rise and fall of the chest. ABDOMEN: Soft, nontender, nondistended with normoactive bowel sounds EXTREMETIES: No clubbing, cyanosis or edema. 2+ peripheral pulses bilaterally. NEURO: Awake, alert and oriented 3. Cranial nerves II through XII are grossly intact. The patient is much less tremulous today on exam. Results Laboratory Results: 01/01/17 04:54 01/01/17 04:54 01/02/17 03:20 Urine Color YELLOW Urine Appearance CLEAR Urine pH 6.0 Ur Specific [place] 1.004 Urine Protein NEGATIVE Urine Glucose (UA) NEGATIVE Urine Ketones NEGATIVE Urine Blood NEGATIVE Urine Nitrite NEGATIVE Ur Leukocyte Esterase NEGATIVE Urine WBC (Auto) 1 Urine RBC (Auto) 0 12/29/16 12/29/16 12/30/16 23:05 23:05 05:01 Creatine Kinase 107 75 CK-MB (CK-2) 1.61 Troponin I < 0.012 12/30/16 12/30/16 12/30/16 05:01 11:14 11:14 Creatine Kinase 61 CK-MB (CK-2) 1.23 0.80 Troponin I < 0.012 < 0.012 Impressions: Chest X-Ray 12/29/16 19:11 IMPRESSION: NO ACUTE RADIOGRAPHIC FINDING IN THE CHEST. Qualifiers PATEINT BEING DISCHARGED WITH ANY OF THE FOLLOWING DIAGNOSIS?: No Plan Time Spent: Less than 30 Minutes
[2017-01-02 17:39] VITALS: BP 147/83
== END 2017-01-02 17:56 | disposition home or self-care (01) | DRG 897 ==
LOC: ER 18:45 → EH 22:26 → UNDOADMIN 22:26 → EH 22:49 → 3W 12-30 03:30
PROVIDERS: ADMIT Internal Medicine; ATTEND Internal Medicine
DX: F10.231 Alcohol dependence with withdrawal delirium (principal); I95.89 Other hypotension; F10.229 Alcohol dependence with intoxication, unspecified; Y90.8 Blood alcohol level of 240 mg/100 ml or more; G89.29 Other chronic pain; J44.9 Chronic obstructive pulmonary disease, unspecified; I10 Essential (primary) hypertension; E11.9 Type 2 diabetes mellitus without complications; F17.200 Nicotine dependence, unspecified, uncomplicated; Z82.49 Family history of ischemic heart disease and other diseases of the circulatory system; Z79.84 Long term (current) use of oral hypoglycemic drugs; Z88.2 Allergy status to sulfonamides; Z88.6 Allergy status to analgesic agent; Z88.8 Allergy status to other drugs, medicaments and biological substances; Z91.030 Bee allergy status; Z98.84 Bariatric surgery status
CPT/HCPCS: 36415; 71010; 80048; 80053; 80307; 81001; 82533; 82550; 82553; 82803; 83605; 83690; 83735; 84443; 84484; 84703; 85025; 87040; 87086; 93005; 93010; 94660; 96361; 96374; 96375; 99291; J0696; J1644; J2060; J2310; J3411; J3475; J3490; J7030; J7050; J7620

== ENCOUNTER 2017-01-04 00:06 | Emergency (ER) | payer MEDICAID ==
[2017-01-04] MEDS ORDERED: LIDOCAINE 1% INJ-PF (10 MG/ML) 30 ML SDV INJ ONE (00:20)
--- NOTE | 2017-01-04 00:21 | ER Document Report ---
ED Fall - General Chief Complaint: Fall Injury Stated Complaint: ETOH FALL HEAD INJURY Time Seen by Provider: 01/04/17 00:12 Notes: Patient is a 46-year-old female comes emergency department by EMS for chief complaint of alcohol intoxication and falling and hitting the back of her head on the pavement prior to arrival. Patient noted to be bleeding from the posterior scalp. Bystanders report that patient was knocked out. Patient is not on a blood thinner. She is unsure how much she drank tonight, she just states "a lot", she denies any recreational drugs, she denies any daily medications. TRAVEL OUTSIDE OF THE [place] IN LAST 30 DAYS: No - Related data Allergies/Adverse Reactions: morphine [Morphine] Allergy (Verified 12/29/16 18:59) nitrofurantoin [From Macrobid] Allergy (Verified 12/29/16 18:59) nitrofurantoin macrocrystalline [From Macrobid] Allergy (Verified 12/29/16 18:59 ) Sulfa (Sulfonamide Antibiotics) Allergy (Verified 12/29/16 18:59) sulfamethoxazole [From Bactrim] Allergy (Verified 12/29/16 18:59) trimethoprim [From Bactrim] Allergy (Verified 12/29/16 18:59) bees Allergy (Uncoded 12/29/16 19:00) Past Medical History - General Information source: Patient - Social History Smoking Status: Never Smoker Frequency of alcohol use: None Drug Abuse: None Lives with: Family Family History: CAD, Malignancy - Past Medical History Cardiac Medical History: Reports: Hx Hypertension Pulmonary Medical History: Reports: Hx Asthma, Hx Bronchitis, Hx COPD Endocrine Medical History: Reports: Hx Diabetes Mellitus Type 2 Renal/ Medical History: Denies: Hx Peritoneal Dialysis GI Medical History: Reports: Hx Ulcer Psychiatric Medical History: Reports: Hx Depression Past Surgical History: Reports: Hx Abdominal Surgery - GBP, Hx Cholecystectomy, Hx Gastric Bypass Surgery, Hx Tonsillectomy - Immunizations Immunizations up to date: Yes Hx Diphtheria, Pertussis, Tetanus Vaccination: Yes - 2017 Review of Systems - Review of Systems Constitutional: No symptoms reported EENT: No symptoms reported Cardiovascular: No symptoms reported Respiratory: No symptoms reported Gastrointestinal: No symptoms reported Genitourinary: No symptoms reported Female Genitourinary: No symptoms reported Musculoskeletal: No symptoms reported Skin: No symptoms reported Hematologic/Lymphatic: No symptoms reported Neurological/Psychological: No symptoms reported Physical Exam - Vital signs Vitals: Temp Pulse Resp BP Pulse Ox 97.3 F 78 18 101/68 94 01/04/17 00:17 01/04/17 00:17 01/04/17 00:17 01/04/17 00:17 01/04/17 00:17 Interpretation: Normal - General General appearance: Other - Patient slurring words, unstable on her feet, appears intoxicated In distress: None - HEENT Head: Normocephalic. No: Atraumatic - There is a 2 cm laceration over the left posterior parietal scalp, bleeding around the area, some soft tissue swelling around the area, otherwise no signs of trauma Eyes: Normal Pupils: PERRL - Respiratory Respiratory status: No respiratory distress Chest status: Nontender Breath sounds: Normal Chest palpation: Normal - Cardiovascular Rhythm: Regular. No: Tachycardia Heart sounds: Normal auscultation, S1 appreciated, S2 appreciated Murmur: No - Abdominal Inspection: Normal Distension: No distension Bowel sounds: Normal Tenderness: Nontender. No: Tender, Guarding Organomegaly: No organomegaly - Back Back: Normal, Nontender. No: Tender, Deformity/step-off, Vertebra tenderness, Wounds - Extremities General upper extremity: Normal inspection, Nontender, Normal color, Normal ROM , Normal temperature General lower extremity: Normal inspection, Nontender, Normal color, Normal ROM , Normal temperature, Normal weight bearing. No: Yong's sign - Neurological Neuro grossly intact: Yes Cognition: Normal Orientation: Disoriented to time, Disoriented to events. No: Disoriented to person, Disoriented to place [place] Coma Scale Eye Opening: Spontaneous [place] Coma Scale Verbal: Oriented [place] Coma Scale Motor: Obeys Commands Alize Coma Scale Total: 15 Speech: Normal Cranial nerves: Normal Cerebellar coordination: Normal Motor strength normal: LUE, RUE, LLE, RLE Sensory: Normal - Psychological Associated symptoms: Normal affect, Normal mood - Skin Skin Temperature: Warm Skin Moisture: Dry Skin Color: Normal Course - Re-evaluation Re-evalutation: Patient clearly intoxicated on initial evaluation, however she does cooperate with the neurological examination which shows no abnormalities except for patient not remembering events prior to arrival. She does have a wound on her scalp, this was cleaned and repaired, CAT scan was performed of the head and neck per Nexus criteria, negative for any acute abnormalities other than the wound. Family members to bedside, they request patient be more sober for going home, I did recommend this, patient evaluated on monitoring until she became clinically sober, now she is alert, responding appropriately, stable on her feet, stable for discharge home. Discussed recommendations, follow-up, return precautions, patient states understanding and agreement. - Vital Signs Vital signs: Temp Pulse Resp BP Pulse Ox 97.3 F 75 18 103/60 98 01/04/17 00:17 01/04/17 06:23 01/04/17 06:23 01/04/17 06:23 01/04/17 06:23 Discharge - Discharge Clinical Impression: Alcohol intoxication Qualifiers: Complication of substance-induced condition: uncomplicated Qualified Code(s): F10.920 - Alcohol use, unspecified with intoxication, uncomplicated Fall Qualifiers: Encounter type: initial encounter Qualified Code(s): W19.XXXA - Unspecified fall, initial encounter Head injury Qualifiers: Encounter type: initial encounter Qualified Code(s): S09.90XA - Unspecified injury of head, initial encounter Scalp laceration Qualifiers: Encounter type: initial encounter Qualified Code(s): S01.01XA - Laceration without foreign body of scalp, initial encounter Condition: Stable Disposition: HOME, SELF-CARE Additional Instructions: The wound has been stapled, kathryn need to be removed at a medical facility in 7 days. Keep area clean, clean with soap and water, dab dry. CAT scan shows bruising around the wound but no other concerning findings. Please follow head injury precautions listed below. Avoid alcohol intoxication. Follow-up with your primary care provider. Return to the emergency department for any concerning symptoms. At this point, there is no evidence that your head injury is serious. Observation is necessary, however. Take only clear liquids for the first few hours, unless told otherwise by the doctor. If no pain medication was prescribed, you may take acetaminophen according to the directions on the bottle. Do not take any medication that may alter your level of alertness (unless you've discussed it with the doctor first) . Limit activity for the first 24 hours. Bed rest is best. During the first 24 hours, check to see approximately every two to three hours that the patient is easily arousable, responds normally, and can perform common tasks such as walking without difficulty. Contact your doctor or go to the hospital if any of the following things occur: Persistent vomiting, difficulty in arousing the patient, worsening or continued headache, or failure to improve as expected. Head injuries can cause symptoms that persist for a few days or even a few weeks. Referrals: NATALIIA PAN, [Primary Care Provider] - Follow up as needed
--- NOTE | 2017-01-04 01:24 | RADIOLOGY REPORT (SQ) ---
EXAM DESCRIPTION: CT HEAD WITHOUT COMPLETED DATE/TIME: 01/04/2017 1:01 am REASON FOR STUDY: ETOH, head injury COMPARISON: None. TECHNIQUE: Axial images acquired through the brain without intravenous contrast. Images reviewed wi th bone, brain and subdural windows. Images stored on PACS. All CT scanners at this facility use dose modulation, iterative reconstruction, and/or weight based d osing when appropriate to reduce radiation dose to as low as reasonably achievable (ALARA). [facility]: Dose Right [facility]: CareDose [facility]: Dose Right [facility]: Teradose 4D [facility]: [employer] RADIATION DOSE: Up-to-date CT equipment and radiation dose reduction techniques were employed. CTDIv ol: 64.6 mGy. DLP: 1163 mGy-cm. mGy. LIMITATIONS: None. FINDINGS: VENTRICLES: Normal size and contour. CEREBRUM: No mass effect. No hemorrhage. No midline shift. Normal de [place]/white matter differentiatio n. No evidence for acute territorial infarction. CEREBELLUM: No mass effect. No hemorrhage. No alteration of density. No evidence for acute infarct ion. EXTRAAXIAL SPACES: No fluid collections. ORBITS AND GLOBE: Symmetrical contour of the globes. CALVARIUM: No depressed skull fracture. PARANASAL SINUSES: Mild mucosal thickening in the bilateral maxillary sinuses. SOFT TISSUES: Soft tissue hematoma and subcutaneous emphysema at the left parietal region. IMPRESSION: Soft tissue hematoma and subcutaneous emphysema at the left parietal region, suggestive of laceration. No acute intracranial hemorrhage or depressed calvarial fracture. EVIDENCE OF ACUTE STROKE: NO. COMMENT: Quality ID # [id number]: Final reports with documentation of one or more dose reduction techniques (e.g., Automated exposure control, adjustment of the mA and/or kV according to patient size, use of iterative reconstruction technique) TECHNICAL DOCUMENTATION: JOB ID: [id number] 2010 [employer]- All Rights Reserved
--- NOTE | 2017-01-04 01:31 | RADIOLOGY REPORT (SQ) ---
EXAM DESCRIPTION: CT CERVICAL SPINE WITHOUT COMPLETED DATE/TIME: 01/04/2017 1:00 am REASON FOR STUDY: ETOH, head injury COMPARISON: MRI cervical spine 10/13/2015. TECHNIQUE: Axial images acquired through the cervical spine without intravenous contrast. Images re viewed with lung, soft tissue and bone windows. Reconstructed coronal and sagittal MPR images review ed. Images stored on PACS. All CT scanners at this facility use dose modulation, iterative reconstruction, and/or weight based d osing when appropriate to reduce radiation dose to as low as reasonably achievable (ALARA). [facility]: Dose Right [facility]: CareDose [facility]: Dose Right [facility]: Teradose 4D [facility]: [employer] RADIATION DOSE: Up-to-date CT equipment and radiation dose reduction techniques were employed. CTDIv ol: 19.7 mGy. DLP: 918 mGy-cm. mGy. LIMITATIONS: Motion artifact. FINDINGS: There is motion artifact. ALIGNMENT: Anatomic. MINERALIZATION: Normal. VERTEBRAL BODIES: No acute fractures or dislocation. DISCS: Mild degenerative disc disease at C4-C5, C5-C6 and C6-C7. FACETS, LATERAL MASSES, POSTERIOR ELEMENTS: No fractures. No dislocation. HARDWARE: None in the spine. VISUALIZED RIBS: No fractures. LUNG APICES AND SOFT TISSUES: Emphysematous changes at the visualized lung apices. Incidental note i s made of an accessory azygos lobe. IMPRESSION: Motion artifact. No acute fracture at the cervical spine. Mild degenerative disc disea se. TECHNICAL DOCUMENTATION: JOB ID: [id number] Quality ID # [id number]: Final reports with documentation of one or more dose reduction techniques (e.g., Au tomated exposure control, adjustment of the mA and/or kV according to patient size, use of iterative reconstruction technique) 2010 [employer]- All Rights Reserved
[2017-01-04 06:23] VITALS: BP 103/60
== END 2017-01-04 06:30 | disposition home or self-care (01) ==
LOC: ER 00:06
DX: S01.01XA Laceration without foreign body of scalp, initial encounter (principal); W19.XXXA Unspecified fall, initial encounter; I10 Essential (primary) hypertension; J44.9 Chronic obstructive pulmonary disease, unspecified; F10.120 Alcohol abuse with intoxication, uncomplicated; Z88.5 Allergy status to narcotic agent; Z88.1 Allergy status to other antibiotic agents; Z88.2 Allergy status to sulfonamides; Z91.030 Bee allergy status
CPT/HCPCS: 99284; 70450; 72125; 12001; J3490

== ENCOUNTER 2017-01-12 15:27 | Emergency (ER) | payer MEDICAID ==
[2017-01-12 15:39] VITALS: BP 156/99
--- NOTE | 2017-01-12 15:55 | ER Document Report ---
ED General - General Stated Complaint: KATHRYN REMOVED FROM HEAD Time Seen by Provider: 01/12/17 15:36 Notes: Patient is a 46-year-old female who comes emergency department for chief complaint of wanting staple removal from her scalp. One week ago she was seen by me after falling and hitting her head. She denies any complications since then. She also states that she is an alcoholic, she gets withdrawal symptoms when she stops, she wants something to take to treat the symptoms because she is going to stop drinking. She states that she will have formal detox arranged in the future if this does not work but she wants to try this first. TRAVEL OUTSIDE OF THE [place] IN LAST 30 DAYS: No - Related Data Allergies/Adverse Reactions: morphine [Morphine] Allergy (Verified 01/12/17 15:42) nitrofurantoin [From Macrobid] Allergy (Verified 01/12/17 15:42) nitrofurantoin macrocrystalline [From Macrobid] Allergy (Verified 01/12/17 15:42 ) Sulfa (Sulfonamide Antibiotics) Allergy (Verified 01/12/17 15:42) sulfamethoxazole [From Bactrim] Allergy (Verified 01/12/17 15:42) trimethoprim [From Bactrim] Allergy (Verified 01/12/17 15:42) bees Allergy (Uncoded 01/12/17 15:42) Past Medical History - General Information source: Patient - Social History Smoking Status: Never Smoker Frequency of alcohol use: None Drug Abuse: None Lives with: Family Family History: CAD, Malignancy - Past Medical History Cardiac Medical History: Reports: Hx Hypertension Pulmonary Medical History: Reports: Hx Asthma, Hx Bronchitis, Hx COPD Endocrine Medical History: Reports: Hx Diabetes Mellitus Type 2 Renal/ Medical History: Denies: Hx Peritoneal Dialysis GI Medical History: Reports: Hx Ulcer Psychiatric Medical History: Reports: Hx Depression Past Surgical History: Reports: Hx Abdominal Surgery - GBP, Hx Cholecystectomy, Hx Gastric Bypass Surgery, Hx Tonsillectomy - Immunizations Immunizations up to date: Yes Hx Diphtheria, Pertussis, Tetanus Vaccination: Yes - 2017 Review of Systems - Review of Systems Constitutional: No symptoms reported EENT: No symptoms reported Cardiovascular: No symptoms reported Respiratory: No symptoms reported Gastrointestinal: No symptoms reported Genitourinary: No symptoms reported Female Genitourinary: No symptoms reported Musculoskeletal: No symptoms reported Skin: See HPI Hematologic/Lymphatic: No symptoms reported Neurological/Psychological: See HPI Physical Exam - Vital signs Vitals: Temp Pulse Resp BP Pulse Ox 99.0 F 100 18 156/99 H 98 01/12/17 15:32 01/12/17 15:32 01/12/17 15:32 01/12/17 15:32 01/12/17 15:32 Interpretation: Normal - General General appearance: Appears well, Alert In distress: None - HEENT Head: Normocephalic, Other - [address] of the left parietal scalp Eyes: Normal Conjunctiva: Normal Extraocular movements intact: Yes Eyelashes: Normal Pupils: PERRL Nasal: Normal Mouth/Lips: Normal Mucous membranes: Normal Pharynx: Normal Neck: Normal - Respiratory Respiratory status: No respiratory distress Chest status: Nontender Breath sounds: Normal Chest palpation: Normal - Cardiovascular Rhythm: Regular Heart sounds: Normal auscultation Murmur: No - Abdominal Inspection: Normal Distension: No distension Bowel sounds: Normal Tenderness: Nontender Organomegaly: No organomegaly - Back Back: Normal, Nontender - Extremities General upper extremity: Normal inspection, Nontender, Normal color, Normal ROM , Normal temperature General lower extremity: Normal inspection, Nontender, Normal color, Normal ROM , Normal temperature, Normal weight bearing. No: Yong's sign - Neurological Neuro grossly intact: Yes Cognition: Normal Orientation: AAOx4 [place] Coma Scale Eye Opening: Spontaneous [place] Coma Scale Verbal: Oriented [place] Coma Scale Motor: Obeys Commands Alize Coma Scale Total: 15 Speech: Normal Motor strength normal: LUE, RUE, LLE, RLE Sensory: Normal - Psychological Associated symptoms: Normal affect, Normal mood - Skin Skin Temperature: Warm Skin Moisture: Dry Skin Color: Normal Course - Re-evaluation Re-evalutation: Area appears to be healed, however it has been cleaned repeatedly with peroxide per patient, when the kathryn were removed and the wound slightly. Patient does not want sutures, kathryn, or more significant wound treatment, after discussion agreed to try to treat with Dermabond. Was able to achieve good closure with Dermabond. Discussed care of the closed wound in detail with patient. After discussion with patient, she does not want to go through detox, she wants to try to take medications at home to stop drinking. I discussed the Librium. After discussion she states she would like to try this, she was given specific details on this, her is very supportive in helping her quit. Discussed return precautions, patient states understanding and agreement. - Vital Signs Vital signs: Temp Pulse Resp BP Pulse Ox 99.0 F 100 18 156/99 H 98 01/12/17 15:32 01/12/17 15:32 01/12/17 15:32 01/12/17 15:32 01/12/17 15:32 Discharge - Discharge Clinical Impression: Encounter for staple removal, Alcoholism Scalp laceration Qualifiers: Encounter type: initial encounter Qualified Code(s): S01.01XA - Laceration without foreign body of scalp, initial encounter Condition: Stable Disposition: HOME, SELF-CARE Additional Instructions: The kathryn were removed, however the wound opened slightly, this was closed with Dermabond, the Dermabond should come off on its own in about 5 days, you can clean the area with soap and water, avoid hard scrubbing, avoid peroxide, avoid placing topical antibiotic on the area. After a week if the glue is still in place you can apply an antibiotic topically to remove it. Take the Librium as prescribed for alcohol withdrawals, do not drink while taking the Librium, please return for any concerning symptoms of withdrawal including vomiting, uncontrollable shaking, or any other concerning symptoms. Prescriptions: Chlordiazepoxide HCl [Librium 25 mg Capsule] 1 cap PO ASDIR PRN #25 capsule PRN Reason:
== END 2017-01-12 16:02 | disposition home or self-care (01) ==
LOC: ER 15:27
DX: S01.01XD Laceration without foreign body of scalp, subsequent encounter (principal); W19.XXXD Unspecified fall, subsequent encounter; F10.20 Alcohol dependence, uncomplicated; I10 Essential (primary) hypertension; J44.9 Chronic obstructive pulmonary disease, unspecified; E11.9 Type 2 diabetes mellitus without complications; Z88.5 Allergy status to narcotic agent; Z88.1 Allergy status to other antibiotic agents; Z88.2 Allergy status to sulfonamides; Z91.030 Bee allergy status; Z98.84 Bariatric surgery status

== ENCOUNTER 2017-03-04 15:55 | Emergency (ER) | payer MEDICAID ==
--- NOTE | 2017-03-04 16:24 | ER Document Report ---
ED Medical Screen (RME) - General Chief Complaint: Leg Pain Stated Complaint: LEG PAIN Time Seen by Provider: 03/04/17 16:22 Notes: Patient was recently in the hospital with sepsis from a urinary tract infection. She states that she is gotten on her legs have been swelling with the left being greater than the right. She states her doctor prescribed some Lasix over the phone but is not been any significant difference. She states she was told to come here to the emergency department for further evaluation. TRAVEL OUTSIDE OF THE [place] IN LAST 30 DAYS: No - Related Data Allergies/Adverse Reactions: morphine [Morphine] Allergy (Verified 01/12/17 15:42) nitrofurantoin [From Macrobid] Allergy (Verified 01/12/17 15:42) nitrofurantoin macrocrystalline [From Macrobid] Allergy (Verified 01/12/17 15:42 ) Sulfa (Sulfonamide Antibiotics) Allergy (Verified 01/12/17 15:42) sulfamethoxazole [From Bactrim] Allergy (Verified 01/12/17 15:42) trimethoprim [From Bactrim] Allergy (Verified 01/12/17 15:42) bees Allergy (Uncoded 01/12/17 15:42) Past Medical History - Social History Chew tobacco use (# tins/day): No Frequency of alcohol use: None Drug Abuse: None - Past Medical History Cardiac Medical History: Reports: Hx Hypertension Pulmonary Medical History: Reports: Hx Asthma, Hx Bronchitis, Hx COPD Endocrine Medical History: Reports: Hx Diabetes Mellitus Type 2 Renal/ Medical History: Denies: Hx Peritoneal Dialysis GI Medical History: Reports: Hx Ulcer Psychiatric Medical History: Reports: Hx Depression Past Surgical History: Reports: Hx Abdominal Surgery - GBP, Hx Cholecystectomy, Hx Gastric Bypass Surgery, Hx Tonsillectomy - Immunizations Immunizations up to date: Yes Hx Diphtheria, Pertussis, Tetanus Vaccination: Yes - 2016 History of Influenza Vaccine for 12/2016 - 05/2017 Season: Yes Influenza Administration Date for 12/2016 - 05/2017 Season: 12/14/16 Physical Exam - Vital signs Vitals: Temp Pulse Resp BP Pulse Ox 98.6 F 81 16 105/72 98 03/04/17 16:05 03/04/17 16:05 03/04/17 16:05 03/04/17 16:05 12/20/17 16:05 Course - Vital Signs Vital signs: Temp Pulse Resp BP Pulse Ox 98.6 F 81 16 105/72 98 03/04/17 16:05 03/04/17 16:05 03/04/17 16:05 03/04/17 16:05 03/04/17 16:05
[2017-03-04 17:11] LABS: ABSOLUTE BASOPHILS # (AUTO) 0.1 10^3/uL (0.0-0.2); ABSOLUTE EOSINOPHILS # (AUTO) 0.2 10^3/uL (0.0-0.6); ABSOLUTE LYMPHOCYTES (AUTO) 2.1 10^3/uL (0.5-4.7); ABSOLUTE MONOCYTES (AUTO) 0.4 10^3/uL (0.1-1.4); ABSOLUTE NEUT (AUTO) 5.4 10^3/uL (1.7-8.2); BASOPHILS % (AUTO) 0.8 % (0-2); EOSINOPHILS % (AUTO) 2.6 % (0-6); HEMATOCRIT 33.8 % (36.0-47.0); HEMOGLOBIN 11.5 g/dL (12.0-15.5); HGB HCT DIFFERENCE 0.7; LYMPHOCYTES % (AUTO) 25.3 % (13-45); MEAN CORPUSCULAR HEMOGLOBIN 35.1 pg (27.0-33.4); MEAN CORPUSCULAR HGB CONC 33.9 g/dL (32.0-36.0); MEAN CORPUSCULAR VOLUME 104 fl (80-97); MONOCYTES % (AUTO) 5.3 % (3-13); RED BLOOD COUNT 3.26 10^6/uL (3.72-5.28); RED CELL DISTRIBUTION WIDTH 15.7 % (11.5-14.0); WHITE BLOOD COUNT 8.3 10^3/uL (4.0-10.5)
[2017-03-04 17:31] LABS: ALANINE AMINOTRANSFERASE 23 U/L (9-52); ALBUMIN 3.6 g/dL (3.5-5.0); ALKALINE PHOSPHATASE 111 U/L (38-126); ANION GAP 13 (5-19); ASPARTATE AMINO TRANSFERASE 28 U/L (14-36); BILIRUBIN,DIRECT 0.3 mg/dL (0.0-0.4); BILIRUBIN,TOTAL 0.4 mg/dL (0.2-1.3); BLOOD UREA NITROGEN 4 mg/dL (7-20); CALCIUM 9.8 mg/dL (8.4-10.2); CARBON DIOXIDE 25 mmol/L (22-30); CHLORIDE 106 mmol/L (98-107); CREATININE RESULT 0.65 mg/dL (0.52-1.25); GLUCOSE 85 mg/dL (75-110); SODIUM 143.9 mmol/L (137-145); TOTAL PROTEIN 6.5 g/dL (6.3-8.2)
--- NOTE | 2017-03-04 17:35 | RADIOLOGY REPORT (SQ) ---
EXAM DESCRIPTION: VENOUS UNILATERAL LOWER COMPLETED DATE/TIME: 03/04/2017 5:21 pm REASON FOR STUDY: swelling/pain COMPARISON: None. TECHNIQUE: Dynamic and static de [place]antos scale and color images acquired of the left leg venous system. Se lected spectral images acquired with additional compression and augmentation maneuvers. The contralat eral common femoral vein and saphenofemoral junction were also imaged. Images stored on PACS. LIMITATIONS: None. FINDINGS: COMMON FEMORAL: Normal phasicity, compression and augmentation. No visualized echogenic ma terial on de [place] santos scale. No defects on color images. FEMORAL: Normal compression and augmentation. No visualized echogenic material on de [place]antos scale. No defe cts on color images. POPLITEAL: Normal compression, augmentation. No visualized echogenic material on de [place] santos scale. No defec ts on color images. CALF VESSELS: Normal compression, augmentation. No visualized echogenic material on de [place] santos scale. No de fects on color images. GSV and SSV: Normal compression, augmentation. No visualized echogenic material on de [place] santos scale. No def ects on color images. ANY DEEP VENOUS INSUFFICIENCY: Not evaluated. ANY EVIDENCE OF POPLITEAL CYST: No. OTHER: No other significant finding. CONTRALATERAL COMMON FEMORAL VEIN AND SAPHENOFEMORAL JUNCTION: Normal phasicity, compression and augmentation. No visualized echogenic material on de [place] santos scale. No de fects on color images. IMPRESSION: NO EVIDENCE OF DVT OR SVT IN THE LEFT LEG. TECHNICAL DOCUMENTATION: JOB ID: [id number] [place]-72 2010 [employer]- All Rights Reserved
[2017-03-04] MEDS ORDERED: CEFTRIAXONE 1 GM/D5W RTU 1 GM/50 ML RTUPB IV ONE (18:12)
--- NOTE | 2017-03-04 18:51 | RADIOLOGY REPORT (SQ) ---
EXAM DESCRIPTION: CHEST PA/LAT COMPLETED DATE/TIME: 03/04/2017 6:39 pm REASON FOR STUDY: cough COMPARISON: 12/29/2016 TECHNIQUE: Frontal and lateral radiographic views of the chest acquired. NUMBER OF VIEWS: Two view. LIMITATIONS: None. FINDINGS: LUNGS AND PLEURA: No acute opacities, masses or pneumothorax. No pleural effusion. MEDIASTINUM AND HILAR STRUCTURES: Stable. HEART AND VASCULAR STRUCTURES: Heart normal size. No evidence for failure. BONES: No acute findings. HARDWARE: None in the chest. OTHER: No other significant finding. IMPRESSION: No acute findings. TECHNICAL DOCUMENTATION: JOB ID: [id number] [place]-72 2010 [employer]- All Rights Reserved
--- NOTE | 2017-03-04 19:35 | RADIOLOGY REPORT (SQ) ---
EXAM DESCRIPTION: ANKLE LEFT AP/LATERAL COMPLETED DATE/TIME: 03/04/2017 7:16 pm REASON FOR STUDY: pain/swelling COMPARISON: 11/03/2016 NUMBER OF VIEWS: Two views. TECHNIQUE: AP and lateral radiographic images acquired of the left ankle. LIMITATIONS: None. FINDINGS: MINERALIZATION: Normal. BONES: No acute fracture or dislocation. No worrisome bone lesions. JOINTS: No effusions. SOFT TISSUES: Mild diffuse soft tissue swelling. No foreign body. OTHER: No other significant finding. IMPRESSION: NO RADIOGRAPHIC EVIDENCE OF ACUTE INJURY. TECHNICAL DOCUMENTATION: JOB ID: [id number] [place]-72 2010 [employer]- All Rights Reserved
--- NOTE | 2017-03-04 21:49 | ER Document Report ---
ED General - General Chief Complaint: Leg Pain Stated Complaint: LEG PAIN Time Seen by Provider: 03/04/17 16:22 Information source: Patient, Relative TRAVEL OUTSIDE OF THE [place] IN LAST 30 DAYS: No - HPI Patient complains to provider of: swelling left leg Onset: Other - few days ago Associated symptoms: None Exacerbated by: Walking Relieved by: Denies Similar symptoms previously: Yes Recently seen / treated by doctor: Yes - sent over from - Related Data Allergies/Adverse Reactions: morphine [Morphine] Allergy (Verified 01/12/17 15:42) nitrofurantoin [From Macrobid] Allergy (Verified 01/12/17 15:42) nitrofurantoin macrocrystalline [From Macrobid] Allergy (Verified 01/12/17 15:42 ) Sulfa (Sulfonamide Antibiotics) Allergy (Verified 01/12/17 15:42) sulfamethoxazole [From Bactrim] Allergy (Verified 01/12/17 15:42) trimethoprim [From Bactrim] Allergy (Verified 01/12/17 15:42) bees Allergy (Uncoded 01/12/17 15:42) Past Medical History - General Information source: Patient, Relative - Social History Smoking Status: Current Every Day Smoker Chew tobacco use (# tins/day): No Frequency of alcohol use: None Drug Abuse: None Lives with: Family Family History: CAD, Malignancy Patient has suicidal ideation: No Patient has homicidal ideation: No - Past Medical History Cardiac Medical History: Reports: Hx Hypertension Pulmonary Medical History: Reports: Hx Asthma, Hx Bronchitis, Hx COPD Endocrine Medical History: Reports: Hx Diabetes Mellitus Type 2 Renal/ Medical History: Denies: Hx Peritoneal Dialysis GI Medical History: Reports: Hx Ulcer Musculoskeltal Medical History: Denies Hx Gout, Denies Hx Muscle Weakness, Denies Hx Musculoskeletal Deformity, Denies Hx Musculoskeletal Trauma Skin Medical History: Reports None Psychiatric Medical History: Reports: Hx Depression Traumatic Medical History: Reports: None Past Surgical History: Reports: Hx Abdominal Surgery - GBP, Hx Section , Hx Cholecystectomy, Hx Gastric Bypass Surgery, Hx Tonsillectomy - Immunizations Immunizations up to date: Yes Hx Diphtheria, Pertussis, Tetanus Vaccination: Yes - 2016 Review of Systems - Review of Systems Constitutional: denies: Fever EENT: No symptoms reported Cardiovascular: No symptoms reported Respiratory: Cough Gastrointestinal: No symptoms reported Musculoskeletal: Leg swelling, Ankle swelling Skin: No symptoms reported Hematologic/Lymphatic: No symptoms reported Neurological/Psychological: No symptoms reported Physical Exam - Vital signs Vitals: Temp Pulse Resp BP Pulse Ox 98.6 F 81 16 105/72 98 03/04/17 16:05 03/04/17 16:05 03/04/17 16:05 03/04/17 16:05 03/04/17 16:05 - Notes Notes: PHYSICAL EXAMINATION: GENERAL: Well-appearing, well-nourished and in no acute distress. HEAD: Atraumatic, normocephalic. EYES: Pupils equal round and reactive to light, extraocular movements intact, sclera anicteric, conjunctiva are normal. ENT: Nares patent, oropharynx clear without exudates. Moist mucous membranes. NECK: Normal range of motion, supple without lymphadenopathy LUNGS: Breath sounds clear to auscultation bilaterally and equal. No wheezes rales or rhonchi. HEART: Regular rate and rhythm without murmurs ABDOMEN: Soft, nontender, nondistended abdomen. No guarding, no rebound. No masses appreciated. Musculoskeletal: Normal range of motion, +2 edema lle from ankle to mid calf. no open wounds. No cyanosis. NEUROLOGICAL: Cranial nerves grossly intact. Normal speech, normal gait. Normal sensory, motor exams PSYCH: Normal mood, normal affect. SKIN: Warm, Dry, normal turgor, no rashes or lesions noted. My Course - Vital Signs Vital signs: Temp Pulse Resp BP Pulse Ox 98.6 F 81 16 105/72 98 03/04/17 16:05 03/04/17 16:05 03/04/17 16:05 03/04/17 16:05 03/04/17 16:05 - Laboratory Result Diagrams: 03/04/17 16:39 03/04/17 16:39 Laboratory results interpreted by me: 03/04/17 03/04/17 16:39 16:39 RBC 3.26 L Hgb 11.5 L Hct 33.8 L MCV 104 H MCH 35.1 H RDW 15.7 H BUN 4 L - Diagnostic Test Radiology reviewed: Image reviewed, Reports reviewed Radiology results interpreted by me: 03/04/17 21:49 No acute findings an x-ray of the left lower extremity, chest x-ray or ultrasound of the left lower extremity Discharge - Discharge Clinical Impression: Cellulitis of leg, left Condition: Stable Disposition: HOME, SELF-CARE Additional Instructions: Return to the emergency department if you have high fevers. Please follow-up the primary medical doctor in the next 1-2 days for recheck of the left lower extremity. Antibiotics as prescribed Prescriptions: Cephalexin Monohydrate [Keflex 500 mg Capsule] 500 mg PO Q6H 7 Days #28 capsule Referrals: NATALIIA PAN DO [Primary Care Provider] - Follow up in 3-5 days
[2017-03-04 22:16] VITALS: BP 124/71
== END 2017-03-04 22:16 | disposition home or self-care (01) ==
LOC: ER 15:55
DX: L03.116 Cellulitis of left lower limb (principal); R60.0 Localized edema; M79.606 Pain in leg, unspecified; R05 Cough; F17.200 Nicotine dependence, unspecified, uncomplicated; I10 Essential (primary) hypertension; J44.9 Chronic obstructive pulmonary disease, unspecified; E11.9 Type 2 diabetes mellitus without complications; Z98.84 Bariatric surgery status; Z88.5 Allergy status to narcotic agent; Z88.1 Allergy status to other antibiotic agents; Z88.2 Allergy status to sulfonamides; Z91.030 Bee allergy status
CPT/HCPCS: 99284; 96365; 36415; 87040; 85025; 87077; 80053; 93971; 73600; 71020; J0696

== ENCOUNTER 2017-04-15 08:20 | Emergency (ER) | payer MEDICAID ==
[2017-04-15] MEDS ORDERED: NORMAL SALINE 1000 ML 1,000 ML IV ONE ×2 (09:28→09:54)
[2017-04-15 09:52] LABS: ABSOLUTE EOSINOPHILS # (AUTO) 0.1 10^3/uL (0.0-0.6); ABSOLUTE LYMPHOCYTES (AUTO) 1.9 10^3/uL (0.5-4.7); ABSOLUTE MONOCYTES (AUTO) 0.6 10^3/uL (0.1-1.4); ABSOLUTE NEUT (AUTO) 6.2 10^3/uL (1.7-8.2); BASOPHILS % (AUTO) 0.3 % (0-2); EOSINOPHILS % (AUTO) 0.6 % (0-6); HEMATOCRIT 37.6 % (36.0-47.0); HEMOGLOBIN 12.6 g/dL (12.0-15.5); LYMPHOCYTES % (AUTO) 21.8 % (13-45); MEAN CORPUSCULAR HEMOGLOBIN 29.6 pg (27.0-33.4); MEAN CORPUSCULAR HGB CONC 33.4 g/dL (32.0-36.0); MEAN CORPUSCULAR VOLUME 89 fl (80-97); MONOCYTES % (AUTO) 7.2 % (3-13); PLATELET COUNT 218 10^3/uL (150-450); RED BLOOD COUNT 4.24 10^6/uL (3.72-5.28); SEGMENTED NEUTROPHILS % (AUTO) 70.1 % (42-78); TOTAL CELLS COUNTED % (AUTO) 100 %; WHITE BLOOD COUNT 8.9 10^3/uL (4.0-10.5)
[2017-04-15] MEDS ORDERED: DICYCLOMINE HCL INJ 20 MG/2 ML AMPULE IM ONE (10:09)
[2017-04-15] MEDS ORDERED: ONDANSETRON HCL INJ/PF 4 MG/2 ML SDV IV ONE (10:09)
[2017-04-15 10:17] LABS: LIPASE 254.1 U/L (23-300)
[2017-04-15 10:18] LABS: ALANINE AMINOTRANSFERASE 38 U/L (9-52); ALBUMIN 4.8 g/dL (3.5-5.0); ALKALINE PHOSPHATASE 83 U/L (38-126); ANION GAP 14 (5-19); ASPARTATE AMINO TRANSFERASE 61 U/L (14-36); BILIRUBIN,DIRECT 0.3 mg/dL (0.0-0.4); BILIRUBIN,TOTAL 0.4 mg/dL (0.2-1.3); BLOOD UREA NITROGEN 4 mg/dL (7-20); CALCIUM 9.3 mg/dL (8.4-10.2); CARBON DIOXIDE 21 mmol/L (22-30); CHLORIDE 102 mmol/L (98-107); GLUCOSE 101 mg/dL (75-110); POTASSIUM 3.5 mmol/L (3.6-5.0); SODIUM 137.4 mmol/L (137-145); TOTAL PROTEIN 8.2 g/dL (6.3-8.2)
[2017-04-15 10:27] LABS: CREATINE KINASE MB 2.72 ng/mL (<4.55)
[2017-04-15 10:30] LABS: TROPONIN I < 0.012 ng/mL
[2017-04-15 10:43] LABS: APPEARANCE,URINE CLOUDY; BILIRUBIN,URINE NEGATIVE (NEGATIVE); COLOR,URINE YELLOW; GLUCOSE, URINE 50 mg/dL (NEGATIVE); KETONES,URINE NEGATIVE (NEGATIVE); LEUKOCYTE ESTERASE,URINE NEGATIVE (NEGATIVE); NITRITE,URINE NEGATIVE (NEGATIVE); PROTEIN,URINE 100 mg/dL (NEGATIVE); URINE SPECIFIC GRAVITY 1.025; UROBILINOGEN,URINE NEGATIVE mg/dL (<2.0)
[2017-04-15] MEDS ORDERED: DIPHENHYDRAMINE HCL 50 MG/ML VIAL IV ONE (10:54)
[2017-04-15] MEDS ORDERED: DIPHENHYDRAMINE HCL 50 MG/ML VIAL ONE (10:55)
[2017-04-15 11:10] LABS: URINE AMPHETAMINES SCREEN NEGATIVE; URINE BARBITURATES SCREEN NEGATIVE; URINE BENZODIAZEPINES SCREEN UNCONFIRMED POSITIVE; URINE COCAINE SCREEN NEGATIVE; URINE MARIJUANA (THC) SCREEN NEGATIVE; URINE METHADONE SCREEN NEGATIVE; URINE PHENCYCLIDINE SCREEN NEGATIVE
[2017-04-15] MEDS ORDERED: HALOPERIDOL LACTATE INJ 5 MG/1 ML VIAL IV ONE (12:21)
--- NOTE | 2017-04-15 13:28 | ER Document Report ---
ED General - General Chief Complaint: Lower Abdominal Pain Stated Complaint: ABDOMINAL PAIN Time Seen by Provider: 04/15/17 09:25 TRAVEL OUTSIDE OF THE [place] IN LAST 30 DAYS: No - HPI Patient complains to provider of: Right lower quadrant abdominal pain Notes: Patient coming in for right lower quadrant abdominal pain. Patient states ongoing for the past 2 days. Patient denies any fever patient denies any nausea vomiting patient states she has been not eating and drinking as well. Denies any dysuria or diarrhea. Patient review of previous visits shows multiple overdoses and visits for EtOH. Patient denies drinking alcohol today states that she does not drink any alcohol last 2 days. Patient also states that she has not had any access to benzodiazepines or any other medications. Patient is tachycardic upon evaluation. - Related Data Allergies/Adverse Reactions: morphine [Morphine] Allergy (Verified 04/15/17 08:22) nitrofurantoin [From Macrobid] Allergy (Verified 04/15/17 08:22) nitrofurantoin macrocrystalline [From Macrobid] Allergy (Verified 04/15/17 08:22 ) Sulfa (Sulfonamide Antibiotics) Allergy (Verified 04/15/17 08:22) sulfamethoxazole [From Bactrim] Allergy (Verified 04/15/17 08:22) trimethoprim [From Bactrim] Allergy (Verified 04/15/17 08:22) bees Allergy (Uncoded 04/15/17 08:22) Past Medical History - Social History Smoking Status: Current Every Day Smoker Chew tobacco use (# tins/day): No Frequency of alcohol use: Occasional Drug Abuse: None Family History: CAD, Malignancy Patient has suicidal ideation: No Patient has homicidal ideation: No - Past Medical History Cardiac Medical History: Reports: Hx Hypertension Pulmonary Medical History: Reports: Hx Asthma, Hx Bronchitis, Hx COPD Endocrine Medical History: Reports: Hx Diabetes Mellitus Type 2 Renal/ Medical History: Denies: Hx Peritoneal Dialysis GI Medical History: Reports: Hx Ulcer Musculoskeltal Medical History: Denies Hx Gout, Denies Hx Muscle Weakness, Denies Hx Musculoskeletal Deformity, Denies Hx Musculoskeletal Trauma Psychiatric Medical History: Reports: Hx Depression Past Surgical History: Reports: Hx Abdominal Surgery - GBP, Hx Section , Hx Cholecystectomy, Hx Gastric Bypass Surgery, Hx Tonsillectomy - Immunizations Immunizations up to date: Yes Hx Diphtheria, Pertussis, Tetanus Vaccination: Yes - 2017 Review of Systems - Review of Systems Constitutional: No symptoms reported EENT: No symptoms reported Cardiovascular: No symptoms reported Respiratory: No symptoms reported Gastrointestinal: Abdominal pain Genitourinary: No symptoms reported Female Genitourinary: No symptoms reported Musculoskeletal: No symptoms reported Skin: No symptoms reported Hematologic/Lymphatic: No symptoms reported Neurological/Psychological: No symptoms reported Physical Exam - Vital signs Vitals: Temp Pulse Resp BP Pulse Ox 98.8 F 121 H 20 167/96 H 98 04/15/17 08:35 04/15/17 08:35 04/15/17 08:35 04/15/17 08:35 04/15/17 08:35 Interpretation: Tachycardic - General General appearance: Appears well, Alert - HEENT Head: Normocephalic, Atraumatic Eyes: Normal Pupils: PERRL - Respiratory Respiratory status: No respiratory distress Chest status: Nontender Breath sounds: Normal Chest palpation: Normal - Cardiovascular Rhythm: Regular, Tachycardia Heart sounds: Normal auscultation Murmur: No - Abdominal Inspection: Normal Distension: No distension Bowel sounds: Normal Tenderness: Tender - Right lower quadrant tenderness mild Organomegaly: No organomegaly - Back Back: Normal, Nontender - Extremities General upper extremity: Normal inspection, Nontender, Normal color, Normal ROM , Normal temperature General lower extremity: Normal inspection, Nontender, Normal color, Normal ROM , Normal temperature, Normal weight bearing. No: Yong's sign - Neurological Neuro grossly intact: Yes Cognition: Normal Orientation: AAOx4 [place] Coma Scale Eye Opening: Spontaneous [place] Coma Scale Verbal: Oriented [place] Coma Scale Motor: Obeys Commands [place] Coma Scale Total: 15 Speech: Normal Motor strength normal: LUE, RUE, LLE, RLE Sensory: Normal - Psychological Associated symptoms: Normal affect, Normal mood - Skin Skin Temperature: Warm Skin Moisture: Dry Skin Color: Normal Course - Re-evaluation Re-evalutation: 04/15/17 15:50 Patient laboratory studies do not show any significant pathology as far as the patient's abdominal pain. Patient's alcohol level did return positive along with benzodiazepines in her urine. Upon questioning patient patient states that she has drink alcohol drink alcohol this morning explained patient she told the opposite upon her initial evaluation. Initially would like to proceed with the CAT scan however upon going to the radiology room patient refused to lie flat stating that was difficult to lie flat. Patient was brought back to her room patient lying in stretcher at 45 angle later was seen sitting the chair. At these times patient was in no obvious distress. Heart rate has improved with IV fluids. Reexamination of the belly reveals very minimal tenderness in the lower abdomen right lower quadrant patient was given Benadryl and Haldol to help out with her condition however patient still refusing to lie flat on the CAT scan table. Explained patient lab work otherwise looks fine reevaluation abdomen was very nonspecific patient refusing CT scan therefore we will discharge patient home at this time. This was carried to return to ER if she developed fever. - Vital Signs Vital signs: Temp Pulse Resp BP Pulse Ox 99.1 F 100 17 165/82 H 97 04/15/17 13:39 04/15/17 13:39 04/15/17 13:39 04/15/17 13:39 04/15/17 13:39 - Laboratory Result Diagrams: 04/15/17 09:38 04/15/17 09:38 Laboratory results interpreted by me: 04/15/17 04/15/17 04/15/17 09:38 09:38 09:38 RDW 17.0 H Potassium 3.5 L Carbon Dioxide 21 L BUN 4 L AST 61 H Creatine Kinase 264 H Urine Protein Urine Glucose (UA) 04/15/17 10:07 RDW Potassium Carbon Dioxide BUN AST Creatine Kinase Urine Protein 100 H Urine Glucose (UA) 50 H Discharge - Discharge Clinical Impression: Alcohol use Abdominal pain Qualifiers: Abdominal location: unspecified location Qualified Code(s): R10.9 - Unspecified abdominal pain Condition: Good Disposition: HOME, SELF-CARE Instructions: Abdominal Pain ([facility]) Additional Instructions: Your laboratory studies not show any significant pathology for abdominal pain. Evaluate been following up with your primary care physician. I would recommend titrating your alcohol use down. I would also recommend to titrate your benzodiazepine use down as well. If you develop a fever I would recommend returning to the ER for further evaluation take medications as prescribed for your abdominal pain and nausea. Prescriptions: Dicyclomine HCl [Bentyl 20 mg Tablet] 20 mg PO QID #30 tablet Ondansetron [Zofran Odt] 4 mg PO Q6 PRN #30 tab.rapdis PRN Reason: For Nausea/Vomiting Referrals: NATALIIA PAN DO [Primary Care Provider] - Follow up as needed
[2017-04-15 13:52] VITALS: BP 165/82
== END 2017-04-15 13:52 | disposition home or self-care (01) ==
LOC: ER 08:20
DX: R10.31 Right lower quadrant pain (principal); Z72.89 Other problems related to lifestyle; R00.0 Tachycardia, unspecified; F17.200 Nicotine dependence, unspecified, uncomplicated; I10 Essential (primary) hypertension; J44.9 Chronic obstructive pulmonary disease, unspecified; Z88.6 Allergy status to analgesic agent; Z88.1 Allergy status to other antibiotic agents; Z88.2 Allergy status to sulfonamides; Z91.030 Bee allergy status; Z98.84 Bariatric surgery status; Z90.49 Acquired absence of other specified parts of digestive tract
CPT/HCPCS: 99284; 96372; 96361; 96374; 96375; 36415; 82553; 80307 ×2; 82550; 83690; 85025; 80053; 81001; 84484; J0500; J1200; J1630; J2405; J7030

== ENCOUNTER 2017-04-23 12:36 | Emergency (ER) | payer MEDICAID ==
[2017-04-23] MEDS ORDERED: LORAZEPAM INJ 2 MG/1 ML VIAL IV ONE ×2 (14:17→16:16)
[2017-04-23] MEDS ORDERED: ASPIRIN 81 MG TABLET, CHEWABLE PO ONE (14:17)
--- NOTE | 2017-04-23 14:18 | ER Document Report ---
ED Medical Screen (RME) - General Chief Complaint: Chest Pain Stated Complaint: CHEST PAIN Time Seen by Provider: 04/23/17 14:05 Mode of Arrival: Medic Information source: Patient Notes: 47-year-old female presents with complaints of chest pain since this morning. Patient notes she stopped drinking 2 days ago is now shaky, blood pressure at home was elevated as well as by EMS but upon arrival here blood pressures improved significantly I have greeted and performed a rapid initial assessment of this patient. A comprehensive ED assessment and evaluation of the patient, analysis of test results and completion of the medical decision making process will be conducted by additional ED providers. PHYSICAL EXAMINATION: GENERAL: Well-appearing, well-nourished and in no acute distress. HEAD: Atraumatic, normocephalic. EYES: Pupils equal round extraocular movements intact, conjunctiva are normal. ENT: Nares patent NECK: Normal range of motion LUNGS: No respiratory distress Musculoskeletal: Normal range of motion NEUROLOGICAL: Normal speech, normal gait. tremor PSYCH: anxious SKIN: Warm, Dry, normal turgor, no rashes or lesions noted. TRAVEL OUTSIDE OF THE [place] IN LAST 30 DAYS: No - Related Data Allergies/Adverse Reactions: morphine [Morphine] Allergy (Verified 04/23/17 12:44) nitrofurantoin [From Macrobid] Allergy (Verified 04/23/17 12:44) nitrofurantoin macrocrystalline [From Macrobid] Allergy (Verified 04/23/17 12:44 ) Sulfa (Sulfonamide Antibiotics) Allergy (Verified 04/23/17 12:44) sulfamethoxazole [From Bactrim] Allergy (Verified 04/23/17 12:44) trimethoprim [From Bactrim] Allergy (Verified 04/23/17 12:44) bees Allergy (Uncoded 04/23/17 12:44) Past Medical History - Social History Chew tobacco use (# tins/day): No Frequency of alcohol use: Heavy Drug Abuse: None - Past Medical History Cardiac Medical History: Reports: Hx Hypertension Pulmonary Medical History: Reports: Hx Asthma, Hx Bronchitis, Hx COPD Endocrine Medical History: Reports: Hx Diabetes Mellitus Type 2 Renal/ Medical History: Denies: Hx Peritoneal Dialysis GI Medical History: Reports: Hx Ulcer Musculoskeltal Medical History: Denies Hx Gout, Denies Hx Muscle Weakness, Denies Hx Musculoskeletal Deformity, Denies Hx Musculoskeletal Trauma Psychiatric Medical History: Reports: Hx Depression Past Surgical History: Reports: Hx Abdominal Surgery - GBP, Hx Section , Hx Cholecystectomy, Hx Gastric Bypass Surgery, Hx Tonsillectomy - Immunizations Immunizations up to date: Yes Hx Diphtheria, Pertussis, Tetanus Vaccination: Yes - 2016 History of Influenza Vaccine for 12/2016 - 05/2017 Season: Yes Influenza Administration Date for 12/2016 - 05/2017 Season: 12/14/16 Physical Exam - Vital signs Vitals: Temp Pulse Resp BP Pulse Ox 98.6 F 80 18 147/91 H 97 04/23/17 13:05 04/23/17 13:05 04/23/17 13:05 04/23/17 13:05 04/23/17 13:05 Course - Vital Signs Vital signs: Temp Pulse Resp BP Pulse Ox 98.6 F 80 18 147/91 H 97 04/23/17 13:05 04/23/17 13:05 04/23/17 13:05 04/23/17 13:05 04/23/17 13:05
[2017-04-23 14:26] LABS: ABSOLUTE LYMPHOCYTES (AUTO) 1.8 10^3/uL (0.5-4.7); ABSOLUTE MONOCYTES (AUTO) 0.4 10^3/uL (0.1-1.4); BASOPHILS % (AUTO) 0.4 % (0-2); EOSINOPHILS % (AUTO) 0.7 % (0-6); HEMATOCRIT 37.6 % (36.0-47.0); HEMOGLOBIN 12.6 g/dL (12.0-15.5); LYMPHOCYTES % (AUTO) 28.3 % (13-45); MEAN CORPUSCULAR HEMOGLOBIN 29.6 pg (27.0-33.4); MEAN CORPUSCULAR HGB CONC 33.4 g/dL (32.0-36.0); MEAN CORPUSCULAR VOLUME 89 fl (80-97); MONOCYTES % (AUTO) 7.1 % (3-13); PLATELET COUNT 157 10^3/uL (150-450); RED BLOOD COUNT 4.24 10^6/uL (3.72-5.28); RED CELL DISTRIBUTION WIDTH 18.4 % (11.5-14.0); SEGMENTED NEUTROPHILS % (AUTO) 63.5 % (42-78); TOTAL CELLS COUNTED % (AUTO) 100 %; WHITE BLOOD COUNT 6.3 10^3/uL (4.0-10.5)
[2017-04-23 14:34] LABS: ALANINE AMINOTRANSFERASE 169 U/L (9-52); ALBUMIN 4.4 g/dL (3.5-5.0); ALKALINE PHOSPHATASE 222 U/L (38-126); ANION GAP 16 (5-19); ASPARTATE AMINO TRANSFERASE 688 U/L (14-36); BILIRUBIN,DIRECT 0.7 mg/dL (0.0-0.4); BILIRUBIN,TOTAL 0.9 mg/dL (0.2-1.3); BLOOD UREA NITROGEN 5 mg/dL (7-20); CALCIUM 9.1 mg/dL (8.4-10.2); CARBON DIOXIDE 18 mmol/L (22-30); CHLORIDE 100 mmol/L (98-107); CREATINE KINASE 139 U/L (30-135); GLUCOSE 213 mg/dL (75-110); POTASSIUM 3.5 mmol/L (3.6-5.0); SODIUM 134.4 mmol/L (137-145)
[2017-04-23 14:45] LABS: CREATINE KINASE MB 1.86 ng/mL (<4.55)
[2017-04-23 14:46] LABS: TROPONIN I < 0.012 ng/mL
--- NOTE | 2017-04-23 15:24 | RADIOLOGY REPORT (SQ) ---
EXAM DESCRIPTION: CHEST SINGLE VIEW COMPLETED DATE/TIME: 04/23/2017 3:16 pm REASON FOR STUDY: chest pain COMPARISON: February 2017 EXAM PARAMETERS: NUMBER OF VIEWS: One view. TECHNIQUE: Single frontal radiographic view of the chest acquired. RADIATION DOSE: NA LIMITATIONS: None. FINDINGS: LUNGS AND PLEURA: No opacities, masses or pneumothorax. No pleural effusion. MEDIASTINUM AND HILAR STRUCTURES: No masses. Contour normal. HEART AND VASCULAR STRUCTURES: Heart normal in size. Normal vasculature. BONES: No acute findings. HARDWARE: Overlying monitoring devices are identified. OTHER: No other significant finding. IMPRESSION: NO ACUTE RADIOGRAPHIC FINDING IN THE CHEST. TECHNICAL DOCUMENTATION: JOB ID: [id number] [employer]- All Rights Reserved
--- NOTE | 2017-04-23 16:52 | RADIOLOGY REPORT (SQ) ---
EXAM DESCRIPTION: U/S ABDOMEN LIMITED W/O DOP COMPLETED DATE/TIME: 04/23/2017 4:37 pm REASON FOR STUDY: elevated LFTs COMPARISON: None. TECHNIQUE: Dynamic and static grayscale images acquired of the abdomen and recorded on PACS. Additio nal selected color Doppler and spectral images recorded. LIMITATIONS: None. FINDINGS: PANCREAS: No masses. Visualized pancreatic duct normal caliber. LIVER: No masses. Echotexture normal. LIVER VASCULATURE: Normal blood flow is identified in the portal vein GALLBLADDER: Status post cholecystectomy ULTRASOUND-DETECTED PRAKASH'S SIGN: Negative. INTRAHEPATIC DUCTS AND COMMON DUCT: No dilated intrahepatic bile ducts are identified. There is some prominence of the common bile duct measuring 13 mm presumably related to the patient being post chol ecystectomy. INFERIOR VENA CAVA: Normal flow. AORTA: No aneurysm. RIGHT KIDNEY: 11.3 cm in length. Normal echogenicity. No solid or suspicious masses. No hydron ephrosis. No calcifications. PERITONEAL AND RIGHT PLEURAL SPACE: No ascites or effusions. OTHER: No other significant findings. IMPRESSION: Status post cholecystectomy. There is some prominence of the common bile duct measuring 13 mm presumably related to the patient being in post cholecystectomy. No other significant intra-a bdominal abnormalities were identified. Other findings as noted above TECHNICAL DOCUMENTATION: JOB ID: [id number] [employer]- All Rights Reserved
--- NOTE | 2017-04-23 17:26 | ER Document Report ---
ED General - General Chief Complaint: Chest Pain Stated Complaint: CHEST PAIN Time Seen by Provider: 04/23/17 14:05 Mode of Arrival: Medic Notes: The patient is a 47-year-old female, past medical history heavy alcohol abuse, presents with feeling like she is withdrawing from alcohol. Her last drink was 2 days ago. She is also having intermittent substernal chest pain after eating. Patient has had a cholecystectomy already. She denies nausea, vomiting , diarrhea, constipation, shortness of breath, back pain, hallucinations or seizures. TRAVEL OUTSIDE OF THE [place] IN LAST 30 DAYS: No - Related Data Allergies/Adverse Reactions: morphine [Morphine] Allergy (Verified 04/23/17 12:44) nitrofurantoin [From Macrobid] Allergy (Verified 04/23/17 12:44) nitrofurantoin macrocrystalline [From Macrobid] Allergy (Verified 04/23/17 12:44 ) Sulfa (Sulfonamide Antibiotics) Allergy (Verified 04/23/17 12:44) sulfamethoxazole [From Bactrim] Allergy (Verified 04/23/17 12:44) trimethoprim [From Bactrim] Allergy (Verified 04/23/17 12:44) bees Allergy (Uncoded 04/23/17 12:44) Past Medical History - General Information source: Patient - Social History Smoking Status: Current Every Day Smoker Chew tobacco use (# tins/day): No Frequency of alcohol use: Heavy Drug Abuse: None Family History: CAD, Malignancy Patient has suicidal ideation: No Patient has homicidal ideation: No - Past Medical History Cardiac Medical History: Reports: Hx Hypertension Pulmonary Medical History: Reports: Hx Asthma, Hx Bronchitis, Hx COPD Endocrine Medical History: Reports: Hx Diabetes Mellitus Type 2 Renal/ Medical History: Denies: Hx Peritoneal Dialysis GI Medical History: Reports: Hx Ulcer Musculoskeltal Medical History: Denies Hx Gout, Denies Hx Muscle Weakness, Denies Hx Musculoskeletal Deformity, Denies Hx Musculoskeletal Trauma Psychiatric Medical History: Reports: Hx Depression Past Surgical History: Reports: Hx Abdominal Surgery - GBP, Hx Section , Hx Cholecystectomy, Hx Gastric Bypass Surgery, Hx Tonsillectomy - Immunizations Immunizations up to date: Yes Hx Diphtheria, Pertussis, Tetanus Vaccination: Yes - 2017 Review of Systems - Review of Systems Notes: REVIEW OF SYSTEMS: CONSTITUTIONAL: -fevers, -chills EENT: -eye pain, -difficulty swallowing, -nasal congestion CARDIOVASCULAR: +chest pain, -syncope. RESPIRATORY: -cough, -SOB GASTROINTESTINAL: -abdominal pain, -nausea, -vomiting, -diarrhea GENITOURINARY: -dysuria, -hematuria MUSCULOSKELETAL: -back pain, -neck pain SKIN: -rash or skin lesions. HEMATOLOGIC: -easy bruising or bleeding. LYMPHATIC: -swollen, enlarged glands. NEUROLOGICAL: +tremors, -altered mental status or loss of consciousness, - headache, -neurologic symptoms PSYCHIATRIC: -anxiety, -depression. ALL OTHER SYSTEMS REVIEWED AND NEGATIVE. Physical Exam - Vital signs Vitals: Temp Pulse Resp BP Pulse Ox 98.6 F 80 18 147/91 H 97 04/23/17 13:05 04/23/17 13:05 04/23/17 13:05 04/23/17 13:05 04/23/17 13:05 - Notes Notes: PHYSICAL EXAMINATION: GENERAL: Well-appearing, well-nourished and in no acute distress. HEAD: Atraumatic, normocephalic. EYES: Pupils equal round and reactive to light, extraocular movements intact, sclera anicteric, conjunctiva are normal. ENT: nares patent, oropharynx clear without exudates. Moist mucous membranes. NECK: Normal range of motion, supple without lymphadenopathy LUNGS: Breath sounds clear to auscultation bilaterally and equal. No wheezes rales or rhonchi. HEART: Regular rate and rhythm without murmurs ABDOMEN: Soft, nontender, normoactive bowel sounds. No guarding, no rebound. No masses appreciated. EXTREMITIES: Normal range of motion, no pitting or edema. No cyanosis. NEUROLOGICAL: Mild arm tremors. Cranial nerves grossly intact. Normal speech, normal gait. Normal sensory and motor exams. PSYCH: Normal mood, normal affect. SKIN: Warm, Dry, normal turgor, no rashes or lesions noted. Course - Re-evaluation Re-evalutation: Patient appears well. She has mild symptoms of alcohol withdrawal that resolved after 2 doses of Ativan. Her CIWA score is 3. 2 sets of troponins are negative and her HEART score is 2. She is PERC negative and symptoms are atypical for aortic dissection or Boerhaave's at this time. She has elevated LFTs, but her right upper quadrant ultrasound is consistent with postcholecystectomy changes. She is tolerating food without any abdominal pain , nausea or vomiting. Instructed her to follow-up with the GI doctor for further evaluation and treatment. Will send her home with [facility] to help with any withdrawal symptoms and follow-up at [facility] for outpatient detox. Given very strict return precautions and she understands. - Vital Signs Vital signs: Temp Pulse Resp BP Pulse Ox 98.0 F 84 18 128/74 H 98 04/23/17 19:22 04/23/17 19:22 04/23/17 19:22 04/23/17 19:22 04/23/17 19:22 - Laboratory Result Diagrams: 04/23/17 12:20 04/23/17 12:20 Laboratory results interpreted by me: 04/23/17 04/23/17 04/23/17 12:20 12:20 12:20 RDW 18.4 H Sodium 134.4 L Potassium 3.5 L Carbon Dioxide 18 L BUN 5 L Glucose 213 H Direct Bilirubin 0.7 H AST 688 H ALT 169 H Alkaline Phosphatase 222 H Creatine Kinase 139 H Lipase 333.2 H - Diagnostic Test Radiology reviewed: Image reviewed, Reports reviewed Radiology results interpreted by me: CXR: NAD RUQ US: Post-cholecystectomy changes - EKG Interpretation by Me EKG shows normal: Sinus rhythm, [place], Intervals, QRS Complexes, ST-T Waves When compared to previous EKG there are: No significant change Additional EKG results interpreted by me: QTc 498 Discharge - Discharge Clinical Impression: Elevated LFTs, Alcohol withdrawal syndrome without complication Chest pain Qualifiers: Chest pain type: unspecified Qualified Code(s): R07.9 - Chest pain, unspecified Condition: Stable Disposition: HOME, SELF-CARE Additional Instructions: CHRONIC ALCOHOLISM and ALCOHOL ABUSE: Your evaluation reveals evidence of chronic alcoholism, an addiction to alcohol. The tendency to alcoholism may be inherited. Chronic use of alcohol weakens muscles, causes fatty deposits in the liver , damages the stomach, makes you more prone to infections, and can cause defects in unborn children. In the long run, brain atrophy and cirrhosis of the liver result. You are also at greater risk for certain types of cancer, such as cancer of the mouth, throat, stomach, and liver. Counselling services are available to help you. In-hospital treatment programs often help. Support groups such as Alcoholics Anonymous can be very useful in beating this addiction. Your physician can make a referral for you. As alcoholics often are prone to other addictions, you should discuss your use of any other medications with the doctor. ALCOHOL WITHDRAWAL: Your symptoms are caused by alcohol withdrawal. After a period of frequent drinking, the brain and body are changed by the alcohol. When you quit or reduce your drinking, the nervous system becomes unstable. Withdrawal symptoms can start a few hours after your last drink, but sometimes don't begin until a couple of days later. Symptoms can include shakiness, sweating, insomnia, nausea , vomiting, fearfulness, hallucinations, and seizures. In addition to the acute effects of alcohol withdrawal, we often have to deal with the medical effects of alcoholism. These problems often include dehydration, stomach irritation, intestinal bleeding, low blood sugar, liver disease, and pancreas inflammation. Treatment for alcohol withdrawal includes mild sedatives, vitamins, and fluids. You need to be with someone who can help if symptoms become severe. Many patients can withdraw at home. Admission to the hospital or a detox facility may be necessary if withdrawal symptoms are severe and uncontrollable. Abstaining from alcohol is the only effective long-term treatment. If you start drinking again, you will not be able to control yourself after the first drink. Treatment programs are available. In addition, many alcoholics benefit from Alcoholics Anonymous or other support groups available through your counselor or religious stopperer assembler. AL-ANOMalou and ROSALIND-TEEN are support groups for friends and family members of an alcoholic. Go to the emergency room if you develop persistent vomiting, severe abdominal pain, fever, shortness of breath, hallucinations, uncontrollable tremors, or seizures. FOLLOW-UP CARE: If you have been referred to a physician for follow-up care, call the physician s office for an appointment as you were instructed or within the next two days. If you experience worsening or a significant change in your symptoms, notify the physician immediately or return to the Emergency Department at any time for re-evaluation. CHEST PAIN OF UNCLEAR CAUSE: The exact cause of your chest pain isn't clear. Fortunately, there is no evidence of a dangerous medical condition. Further testing may be required to find the source of the pain. Most often, we find that this pain is coming from the chest wall -- the muscles or rib joints in the chest. But chest pain can come from the lung and lung lining, the esophagus, the heart valves or heart lining, and even the stomach or gallbladder. Rest. Eat lightly until the pain is gone. We may prescribe medicine for pain and inflammation. You should call the physician immediately if the pain radiates to the shoulder, jaw or arms; if you start to run a fever or develop a cough; or if you develop shortness of breath, or other new or alarming symptoms. NORMAL EXAM AND WORKUP: At this time, your examination and workup show no significant abnormality. No significant abnormal physical findings were noted. All laboratory, EKG, and imaging (x-ray, CT scans, ultrasound) studies that were ordered show no significant abnormality. Although your examination and all studies that were ordered showed no significant abnormal finding, there are no examinations and no studies that are 100% accurate. There is always the possibility that some abnormality could exist and not be detected with physical examination or within the limits and capabilities of laboratory and other studies. You should return or follow up as you were instructed on your visit today for further evaluation if your symptoms do not resolve. CHEST WALL PAIN: Your chest pain may be coming from the chest wall. This is often caused by straining the muscles or joints in the chest during physical activity, direct trauma, coughing, or vigorous vomiting. Persons with arthritis are especially prone to this type of pain, due to inflammation of the cartilage joints near the breast bone. Occasionally, no cause can be found. Rest from strenuous physical activity. This kind of chest pain is usually made worse by movement of the chest. Depending on the symptoms, we may prescribe medicine for pain, muscle relaxation, and antiinflammatory effects. If the pain is new, and seems to be due to muscle strain, cold packs can help. Otherwise, apply gentle warmth to the painful area for 15 minutes every hour or two. You should call contact the doctor immediately if things change. Further evaluation is needed if you develop a fever or cough, if the nature of the pain changes, or if you become short of breath. ANGINA EPISODE: Your physician has diagnosed the pain you experienced as an episode of angina. Angina occurs when a portion of the heart muscle temporarily lacks oxygen. It does not cause any permanent heart damage, but serves as a warning. Hospitalization is not necessary now. Evaluation of your cardiac condition , and medical therapy for angina will be necessary. It's important you be sure to keep all appointments and take medication exactly as prescribed. Angina is usually treated with a type of "nitrate" medication. This is available as ointment, pills, or sublingual (under the tongue) tablets. Depending on your clinical situation, other medications may be added to help control angina. These may include beta blockers or calcium blockers. If episodes of angina are occurring with increased frequency, or if chest pain lasts longer than 15 minutes or does not respond to nitroglycerin, you must seek emergency medical care immediately. ACID REFLUX DISEASE (GERD): Gastro-Esophageal Reflux Disease (GERD) is caused by stomach acid refluxing back up into the esophagus. The valve at the end of the esophagus may be weak. This is common in persons with a hiatal hernia. GERD symptoms can include indigestion, chest pain, heartburn, or food "sticking." Certain foods, alcohol, and aspirin can make GERD worse. Treatment depends on the severity. Usually, antacids or acid-suppressing medicines are used. When the esophagus is acutely inflamed, the physician will often prescribe membrane-protective drugs such as Carafate. Some patients benefit from medication such as Reglan that tightens the valve at the top of the stomach. Avoid those foods that bring on your symptoms. For many people, these foods are coffee, chocolate, onions, garlic, and carbonated drinks. Don't use alcohol, aspirin, caffeine, or tobacco. Don't eat late at night -- within 4 hours of bedtime. Don't over-eat. If necessary, elevate the head of your bed about 4 inches so that stomach acid will not roll up into your esophagus. Call the doctor if you develop severe chest pain, inability to swallow fluids, fever, or worsening symptoms. FOLLOW-UP CARE: If you have been referred to a physician for follow-up care, call the physician s office for an appointment as you were instructed or within the next two days. If you experience worsening or a significant change in your symptoms, notify the physician immediately or return to the Emergency Department at any time for re-evaluation. Prescriptions: Chlordiazepoxide HCl [Librium 25 mg Capsule] 50 mg PO TID PRN 7 Days capsule PRN Reason: Forms: Elevated Blood Pressure Referrals: NATALIIA PAN DO [Primary Care Provider] - Follow up as needed LESLYE STEELE MD [ACTIVE STAFF] - Follow up as needed
[2017-04-23 19:23] VITALS: BP 128/74
--- NOTE | 2017-04-23 22:37 | EKG REPORT ---
SEVERITY:- BORDERLINE ECG - SINUS RHYTHM BORDERLINE PROLONGED QT INTERVAL : Confirmed by: Chloe Marroquin 23-Apr-2017 22:36:36
== END 2017-04-23 19:23 | disposition home or self-care (01) ==
LOC: ER 12:36
DX: F10.239 Alcohol dependence with withdrawal, unspecified (principal); R07.89 Other chest pain; R79.89 Other specified abnormal findings of blood chemistry; F17.200 Nicotine dependence, unspecified, uncomplicated; I10 Essential (primary) hypertension; J44.9 Chronic obstructive pulmonary disease, unspecified; E11.9 Type 2 diabetes mellitus without complications; Z98.84 Bariatric surgery status; Z90.49 Acquired absence of other specified parts of digestive tract; Z88.5 Allergy status to narcotic agent; Z88.1 Allergy status to other antibiotic agents; Z88.2 Allergy status to sulfonamides; Z91.030 Bee allergy status
CPT/HCPCS: 93005; 96376; 99285; 96374; 36415; 82553; 82550; 83690; 85025; 80053; 84484; 71045; 76705; 93010; J2060

== ENCOUNTER 2017-06-06 16:45 | Emergency (ER) | payer MEDICAID, OTHER ==
[2017-06-06] MEDS ORDERED: HYDROMORPHONE HCL INJ/PF 2 MG/ML AMPULE IV ONE ×2 (17:20→19:24)
--- NOTE | 2017-06-06 17:21 | ER Document Report ---
ED Medical Screen (RME) - General TRAVEL OUTSIDE OF THE [place] IN LAST 30 DAYS: No - HPI Patient complains to provider of: Left rib pain Onset: This afternoon Associated Symptoms: Other - see notes above <EUGENE BILLINGS - Last Filed: 06/06/17 18:21> <KAYLYN MCCABE - Last Filed: 06/06/17 20:23> - General Chief Complaint: Rib Pain Stated Complaint: RIB PAIN Time Seen by Provider: 06/06/17 17:13 Notes: 47-year-old female with history of diabetes mellitus type 2 presents to the ED after she slipped, fell back, and hit her left ribs on the side of the bathtub. Patient denies loss of consciousness. Patient is complaining of tenderness to the left ribs and states that she thinks she broke them. Patient denies being on any blood thinning medication. (EUGENE BILLINGS) - Related Data Allergies/Adverse Reactions: morphine [Morphine] Allergy (Verified 06/06/17 16:47) nitrofurantoin [From Macrobid] Allergy (Verified 06/06/17 16:47) nitrofurantoin macrocrystalline [From Macrobid] Allergy (Verified 06/06/17 16:47 ) Sulfa (Sulfonamide Antibiotics) Allergy (Verified 06/06/17 16:47) sulfamethoxazole [From Bactrim] Allergy (Verified 06/06/17 16:47) trimethoprim [From Bactrim] Allergy (Verified 06/06/17 16:47) red ants Allergy (Severe, Uncoded 06/06/17 17:20) Anaphylaxis bees Allergy (Uncoded 06/06/17 16:47) Past Medical History - General Information source: Patient - Social History Chew tobacco use (# tins/day): No Frequency of alcohol use: None Drug Abuse: None - Past Medical History Cardiac Medical History: Reports: Hx Hypertension Pulmonary Medical History: Reports: Hx Asthma, Hx Bronchitis, Hx COPD Endocrine Medical History: Reports: Hx Diabetes Mellitus Type 2 Renal/ Medical History: Denies: Hx Peritoneal Dialysis GI Medical History: Reports: Hx Ulcer Musculoskeltal Medical History: Denies Hx Gout, Denies Hx Muscle Weakness, Denies Hx Musculoskeletal Deformity, Denies Hx Musculoskeletal Trauma Psychiatric Medical History: Reports: Hx Depression Past Surgical History: Reports: Hx Abdominal Surgery - GBP, Hx Section , Hx Cholecystectomy, Hx Gastric Bypass Surgery, Hx Tonsillectomy - Immunizations Immunizations up to date: Yes Hx Diphtheria, Pertussis, Tetanus Vaccination: Yes - 2016 History of Influenza Vaccine for 12/2016 - 05/2017 Season: Yes Influenza Administration Date for 12/2016 - 05/2017 Season: 12/14/16 <EUGENE BILLINGS - Last Filed: 06/06/17 18:21> Review of Systems - Review of Systems Constitutional: No symptoms reported EENT: No symptoms reported Cardiovascular: No symptoms reported Respiratory: No symptoms reported Gastrointestinal: No symptoms reported Genitourinary: No symptoms reported Female Genitourinary: No symptoms reported Musculoskeletal: See HPI, Other - left rib pain Skin: No symptoms reported Hematologic/Lymphatic: No symptoms reported Neurological/Psychological: No symptoms reported <EUGENE BILLINGS - Last Filed: 06/06/17 18:21> Physical Exam - General General appearance: Alert <EUGENE BILLINGS - Last Filed: 06/06/17 18:21> <KAYLYN MCCABE - Last Filed: 06/06/17 20:23> - Vital signs Vitals: Temp Pulse Resp BP Pulse Ox 98.4 F 90 16 128/84 H 96 06/06/17 16:57 06/06/17 16:57 06/06/17 16:57 06/06/17 16:57 06/06/17 16:57 - Notes Notes: Significant tenderness palpation across the left side of the rib cage particularly along the mid and anterior axillary line. No step-offs, no deformities. No ecchymoses or external signs of trauma. Patient's abdomen is nontender palpation but her ribs are tender palpation directly over her spleen. Appears quite uncomfortable. (KAYLYN MCCABE) Course - Laboratory Result Diagrams: 06/06/17 18:08 06/06/17 18:08 <EUGENE BILLINGS - Last Filed: 06/06/17 18:21> - Laboratory Result Diagrams: 06/06/17 18:08 06/06/17 18:08 <KAYLYN MCCABE - Last Filed: 06/06/17 20:23> - Re-evaluation Re-evalutation: 06/06/17 17:22 Patient complaining of left-sided pain from fall immediately prior to arrival where the patient hit her left ribs on the edge of the bathtub, due to the location and the severity of her pain I am concerned for the possibility of an underlying splenic injury. Patient will have chest x-ray ordered to look for rib fractures, pneumothorax or hemothorax, patient will also have a CT scan of the abdomen ordered to look for possible splenic injury. Patient is n.p.o., aware of my concerns, pain medication has been ordered. (KAYLYN MCCABE) - Vital Signs Vital signs: Temp Pulse Resp BP Pulse Ox 98.4 F 90 16 128/84 H 96 06/06/17 16:57 06/06/17 16:57 06/06/17 16:57 06/06/17 16:57 06/06/17 16:57 - Laboratory Laboratory results interpreted by me: 06/06/17 06/06/17 18:08 18:08 Hgb 11.8 L RDW 23.2 H Chloride 108 H Glucose 151 H Doctor's Discharge <EUGENE BILLINGS - Last Filed: 06/06/17 18:21> <KAYLYN MCCABE - Last Filed: 06/06/17 20:23> - Discharge Referrals: NATALIIA PAN DO [Primary Care Provider] - Follow up as needed Scribe Documentation - Scribe Written by Montse:: Montse Quinonez, 06/06/2017 1823 acting as scribe for :: Basia <EUGENE BILLINGS - Last Filed: 06/06/17 18:21>
[2017-06-06 18:20] LABS: ABSOLUTE EOSINOPHILS # (AUTO) 0.4 10^3/uL (0.0-0.6); ABSOLUTE LYMPHOCYTES (AUTO) 2.1 10^3/uL (0.5-4.7); ABSOLUTE MONOCYTES (AUTO) 0.2 10^3/uL (0.1-1.4); ABSOLUTE NEUT (AUTO) 4.2 10^3/uL (1.7-8.2); BASOPHILS % (AUTO) 0.7 % (0-2); EOSINOPHILS % (AUTO) 5.5 % (0-6); HEMOGLOBIN 11.8 g/dL (12.0-15.5); LYMPHOCYTES % (AUTO) 30.1 % (13-45); MEAN CORPUSCULAR HGB CONC 32.8 g/dL (32.0-36.0); MEAN CORPUSCULAR VOLUME 82 fl (80-97); PLATELET COUNT 308 10^3/uL (150-450); RED BLOOD COUNT 4.37 10^6/uL (3.72-5.28); RED CELL DISTRIBUTION WIDTH 23.2 % (11.5-14.0); SEGMENTED NEUTROPHILS % (AUTO) 60.7 % (42-78); TOTAL CELLS COUNTED % (AUTO) 100 %; WHITE BLOOD COUNT 6.9 10^3/uL (4.0-10.5)
--- NOTE | 2017-06-06 18:24 | RADIOLOGY REPORT (SQ) ---
EXAM DESCRIPTION: CHEST PA/LAT COMPLETED DATE/TIME: 06/06/2017 6:05 pm REASON FOR STUDY: fall onto LUQ, possible rib fx COMPARISON: 03/04/2017 EXAM PARAMETERS: NUMBER OF VIEWS: two views TECHNIQUE: Digital Frontal and Lateral radiographic views of the chest acquired. RADIATION DOSE: NA LIMITATIONS: none FINDINGS: LUNGS AND PLEURA: No opacities, masses or pneumothorax. No pleural effusion. MEDIASTINUM AND HILAR STRUCTURES: No masses or contour abnormalities. HEART AND VASCULAR STRUCTURES: Heart normal size. No evidence for failure. BONES: No acute findings. HARDWARE: None in the chest. OTHER: No other significant finding. IMPRESSION: NO SIGNIFICANT RADIOGRAPHIC FINDING IN THE CHEST. TECHNICAL DOCUMENTATION: JOB ID: [id number] [employer]- All Rights Reserved Reading location - IP/workstation name: [email or web address]
[2017-06-06 18:31] LABS: INTERNATIONAL RATION (INR) 0.94; PROTHROMBIN TIME 13.2 SEC (11.4-15.4)
[2017-06-06 18:32] LABS: PARTIAL THROMBOPLASTIN TIME 30.1 SEC (23.5-35.8)
[2017-06-06 18:37] LABS: ALANINE AMINOTRANSFERASE 32 U/L (9-52); ALBUMIN 4.2 g/dL (3.5-5.0); ALKALINE PHOSPHATASE 74 U/L (38-126); ANION GAP 13 (5-19); ASPARTATE AMINO TRANSFERASE 34 U/L (14-36); BILIRUBIN,DIRECT 0.2 mg/dL (0.0-0.4); BILIRUBIN,TOTAL 0.3 mg/dL (0.2-1.3); BLOOD UREA NITROGEN 12 mg/dL (7-20); CALCIUM 9.1 mg/dL (8.4-10.2); CARBON DIOXIDE 22 mmol/L (22-30); CHLORIDE 108 mmol/L (98-107); GLUCOSE 151 mg/dL (75-110); POTASSIUM 4.5 mmol/L (3.6-5.0); SODIUM 142.8 mmol/L (137-145); TOTAL PROTEIN 7.4 g/dL (6.3-8.2)
--- NOTE | 2017-06-06 19:27 | ER Document Report ---
ED Fall - General Chief Complaint: Rib Pain Stated Complaint: RIB PAIN Time Seen by Provider: 06/06/17 17:13 Information source: Patient Notes: Patient is a 47 year old female that comes emergency department for chief complaint of fall she states she slipped in the bathtub while getting out, landed on the side of the bathtub with her back and side ribs on the left side, complains of pain in the left upper abdomen, left ribs, and left side. She denies head injury, vehicle to breathing, passing out, vomiting, incontinence, numbness. She is not on a blood thinner. She takes metformin for type 2 diabetes but denies any other medications. She denies alcohol use today. Significant other at bedside. TRAVEL OUTSIDE OF THE [place] IN LAST 30 DAYS: No - Related data Allergies/Adverse Reactions: morphine [Morphine] Allergy (Verified 06/06/17 16:47) nitrofurantoin [From Macrobid] Allergy (Verified 06/06/17 16:47) nitrofurantoin macrocrystalline [From Macrobid] Allergy (Verified 06/06/17 16:47 ) Sulfa (Sulfonamide Antibiotics) Allergy (Verified 06/06/17 16:47) sulfamethoxazole [From Bactrim] Allergy (Verified 06/06/17 16:47) trimethoprim [From Bactrim] Allergy (Verified 06/06/17 16:47) red ants Allergy (Severe, Uncoded 06/06/17 17:20) Anaphylaxis bees Allergy (Uncoded 06/06/17 16:47) Past Medical History - General Information source: Patient - Social History Smoking Status: Current Every Day Smoker Chew tobacco use (# tins/day): No Frequency of alcohol use: Heavy Drug Abuse: None Lives with: Family Family History: CAD, Malignancy Patient has suicidal ideation: No Patient has homicidal ideation: No - Past Medical History Cardiac Medical History: Reports: Hx Hypertension Pulmonary Medical History: Reports: Hx Asthma, Hx Bronchitis, Hx COPD Endocrine Medical History: Reports: Hx Diabetes Mellitus Type 2 Renal/ Medical History: Denies: Hx Peritoneal Dialysis GI Medical History: Reports: Hx Ulcer Musculoskeltal Medical History: Denies Hx Gout, Denies Hx Muscle Weakness, Denies Hx Musculoskeletal Deformity, Denies Hx Musculoskeletal Trauma Psychiatric Medical History: Reports: Hx Depression Past Surgical History: Reports: Hx Abdominal Surgery - GBP, Hx Section , Hx Cholecystectomy, Hx Gastric Bypass Surgery, Hx Tonsillectomy - Immunizations Immunizations up to date: Yes Hx Diphtheria, Pertussis, Tetanus Vaccination: Yes - 2017 Review of Systems - Review of Systems Constitutional: No symptoms reported EENT: No symptoms reported Cardiovascular: No symptoms reported Respiratory: See HPI Gastrointestinal: See HPI Genitourinary: No symptoms reported Female Genitourinary: No symptoms reported Musculoskeletal: See HPI Skin: No symptoms reported Hematologic/Lymphatic: No symptoms reported Neurological/Psychological: No symptoms reported Physical Exam - Vital signs Vitals: Temp Pulse Resp BP Pulse Ox 98.4 F 90 16 128/84 H 96 06/06/17 16:57 06/06/17 16:57 06/06/17 16:57 06/06/17 16:57 06/06/17 16:57 - General General appearance: Anxious In distress: Mild - Patient sitting up in the chair, holding her left side, appears uncomfortable, no severe distress - HEENT Head: Normocephalic, Atraumatic Eyes: Normal Conjunctiva: Normal Extraocular movements intact: Yes Eyelashes: Normal Pupils: PERRL Ears: Normal Sinus: Normal Nasal: Normal Mouth/Lips: Normal Mucous membranes: Normal Pharynx: Normal Neck: Normal - Respiratory Respiratory status: No respiratory distress Chest status: Tender - tender over left anterior, side, and posterior ribs from the mid to lower ribs. No crepitus, swelling, ecchymosis, or other abnormality noted Breath sounds: Normal. No: Decreased air movement - Cardiovascular Rhythm: Regular. No: Tachycardia Heart sounds: Normal auscultation, S1 appreciated, S2 appreciated - Abdominal Inspection: Normal Tenderness: Tender - There is some reproducible tenderness in the left upper quadrant, epigastric area and remaining abdomen are all benign with no tenderness - Back Back: Normal, Nontender. 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 No swelling, ecchymosis, or other abnormality noted. She is not tachycardic, hypoxic, or hypotensive. She is uncomfortable on examination but she is not in any severe distress. CBC, chemistry, urinalysis, coagulation studies ordered in triage reviewed and are generally unremarkable. X-ray also reviewed from triage and is unremarkable. CAT scan was ordered from triage as well, shows normal spleen, no internal injuries, does show mildly displaced fractures of ribs 8 through 12 on the left side. Discussed with patient in detail. Patient was provided with incentive spirometer, discussion was made including return precautions for signs of pneumonia, internal bleeding, or other worsening symptoms. Patient's pain is manageable, her vital signs are normal, and she is very well-appearing on exam. As result patient will be discharged with pain medication, instructions, and return precautions. Specifically I discussed not using narcotic pain medication with alcohol, patient is sober today, she states she has stopped drinking heavily, has cut way back, and that she will not be drinking alcohol while taking the narcotic medications due to the risk. Patient states satisfaction and agreement with discussed plan. - Vital Signs Vital signs: Temp Pulse Resp BP Pulse Ox 99.7 F 93 16 115/81 97 06/06/17 21:13 06/06/17 21:13 06/06/17 16:57 06/06/17 21:13 06/06/17 21:13 - Laboratory Result Diagrams: 06/06/17 18:08 06/06/17 18:08 Laboratory results interpreted by me: 06/06/17 06/06/17 18:08 18:08 Hgb 11.8 L RDW 23.2 H Chloride 108 H Glucose 151 H Discharge - Discharge Clinical Impression: Fall Qualifiers: Encounter type: initial encounter Qualified Code(s): W19.XXXA - Unspecified fall, initial encounter Ribs, multiple fractures Qualifiers: Encounter type: initial encounter Fracture type: closed Laterality: left Qualified Code(s): S22.42XA - Multiple fractures of ribs, left side, initial encounter for closed fracture Condition: Stable Disposition: HOME, SELF-CARE Additional Instructions: You have broken ribs 8 through 12 on the left side. No other abnormality's are seen on imaging at this time. Use incentive spirometer as shown, take the pain medication as prescribed if needed, do not drink alcohol while taking the pain medication. Follow-up with primary care for additional evaluation and management within the next week. Return for any concerning symptoms including difficulty breathing, vomiting, fever, or any other concerning or worsening symptoms. See additional instructions below. Rib Injuries and Fractures You have been diagnosed as having either bruised or broken ribs. These two injuries are treated in the same way. It will usually take four to six weeks for these injured ribs to heal. Sometimes, rib belts or anesthetic injections of the chest wall help reduce the pain. If you are using a rib belt, you should cough or take a deep breath at least every hour or two to prevent lung complications. You should not engage in any strenuous physical activity until released by your physician. The usual rule is "if it hurts, don't do it." Rib fractures can lead to serious lung complications including lung collapse, hemorrhage, and pneumonia. You should call the physician or return at once if any of the following occur: (1) Fever or chills. (2) Persistent cough, coughing up blood, or shortness of breath. (3) Increasing pain. (4) Weakness, lightheadedness, or fainting. Prescriptions: Morphine Sulfate [Morphine Ir 15 Mg Tablet] 15 mg PO Q4HP PRN #20 tablet PRN Reason: Referrals: NATALIIA PAN DO [Primary Care Provider] - Follow up in 3-5 days
--- NOTE | 2017-06-06 20:05 | RADIOLOGY REPORT (SQ) ---
EXAM DESCRIPTION: CT ABD/PELVIS WITH IV ONLY COMPLETED DATE/TIME: 06/06/2017 7:21 pm REASON FOR STUDY: fall onto LUQ, possible splenic injury COMPARISON: 04/03/2015 TECHNIQUE: CT scan of the abdomen and pelvis performed using helical scanning technique with dynamic intravenous contrast injection. No oral contrast. Images reviewed with lung, soft tissue, and bone windows. Reconstructed coronal and sagittal MPR images reviewed. Delayed images for evaluation of the urinary system also acquired. All images stored on PACS. All CT scanners at this facility use dose modulation, iterative reconstruction, and/or weight based d osing when appropriate to reduce radiation dose to as low as reasonably achievable (ALARA). [facility]: Dose Right [facility]: CareDose [facility]: Dose Right [facility]: Teradose 4D [facility]: weendy CONTRAST TYPE AND DOSE: contrast/concentration: Isovue 370.00 mg/ml; Total Contrast Delivered: 97.0 ml; Total Saline Delivered: 72.0 ml RENAL FUNCTION: BUN 12; creatinine 0.54 RADIATION DOSE: CT Rad equipment meets quality standard of care and radiation dose reduction techniq ues were employed. CTDIvol: 18.2 - 20.4 mGy. DLP: 2031 mGy-cm.. LIMITATIONS: None. FINDINGS: LOWER CHEST: Atelectasis is seen of the posterior aspect of the left lower lobe. No signi ficant findings. No nodules or infiltrates. LIVER: Normal size. No masses. No dilated ducts. SPLEEN: Normal size. No focal lesions. PANCREAS: No masses. No significant calcifications. No adjacent inflammation or peripancreatic fluid collections. Pancreatic duct not dilated. GALLBLADDER: Surgically absent. ADRENAL GLANDS: No significant masses or asymmetry. RIGHT KIDNEY AND URETER: No solid masses. No significant calcifications. No hydronephrosis or hyd roureter. LEFT KIDNEY AND URETER: No solid masses. No significant calcifications. No hydronephrosis or hydr oureter. AORTA AND VESSELS: No aneurysm. No dissection. Renal arteries, SMA, celiac without stenosis. RETROPERITONEUM: No retroperitoneal adenopathy, hemorrhage or masses. BOWEL AND PERITONEAL CAVITY: Gastric bypass surgical changes are present. No pneumoperitoneum or inf lammatory changes are present. APPENDIX: Normal. PELVIS: No mass. No free fluid. Normal bladder. ABDOMINAL WALL: No masses. No hernias. BONES: Mildly displaced transverse fractures are seen of left ribs 8 through 12. OTHER: No other significant finding. IMPRESSION: Multiple mildly displaced transverse fractures are seen of left ribs 8 through 12. Marika cent atelectasis of the left lower lobe. No underlying splenic injury. TECHNICAL DOCUMENTATION: JOB ID: [id number] Quality ID # [id number]: Final reports with documentation of one or more dose reduction techniques (e.g., Au tomated exposure control, adjustment of the mA and/or kV according to patient size, use of iterative reconstruction technique) 2010 [employer]- All Rights Reserved Reading location - IP/workstation name: [email or web address]
[2017-06-06] MEDS ORDERED: HYDROCODONE/ACETAMINOPHEN 5-325 MG (6 TAB/ER DISP) PO PRN (20:32)
[2017-06-06 21:15] VITALS: BP 115/81
== END 2017-06-06 21:21 | disposition home or self-care (01) ==
LOC: ER 16:45
DX: S22.42XA Multiple fractures of ribs, left side, initial encounter for closed fracture (principal); W18.2XXA Fall in (into) shower or empty bathtub, initial encounter; Y93.89 Activity, other specified; R10.12 Left upper quadrant pain; R10.816 Epigastric abdominal tenderness; R10.812 Left upper quadrant abdominal tenderness; R07.81 Pleurodynia; F17.200 Nicotine dependence, unspecified, uncomplicated; I10 Essential (primary) hypertension; J44.9 Chronic obstructive pulmonary disease, unspecified; E11.9 Type 2 diabetes mellitus without complications; Z79.84 Long term (current) use of oral hypoglycemic drugs; Z88.5 Allergy status to narcotic agent; Z88.1 Allergy status to other antibiotic agents; Z88.2 Allergy status to sulfonamides; Z91.030 Bee allergy status; Z91.038 Other insect allergy status; Z98.84 Bariatric surgery status
CPT/HCPCS: 96376; 99284; 96374; 36415; 85025; 85610; 85730; 80053; 71046; 74177; J1170

== ENCOUNTER 2017-06-13 15:14 | Emergency (ER) | payer MEDICAID ==
[2017-06-13 15:23] VITALS: BP 126/81
== END 2017-06-13 16:45 | disposition left against medical advice (07) ==
LOC: ER 15:14
DX: Z53.21 Procedure and treatment not carried out due to patient leaving prior to being seen by health care provider (principal)

== ENCOUNTER 2017-06-16 01:36 | Emergency (ER) | payer MEDICAID ==
[2017-06-16] MEDS ORDERED: ONDANSETRON HCL INJ/PF 4 MG/2 ML SDV IV ONE (01:58)
[2017-06-16] MEDS ORDERED: FENTANYL CITRATE INJ/PF 100 MCG/2 ML AMPUL IV ONE (01:58)
[2017-06-16] MEDS ORDERED: NORMAL SALINE 1000 ML 1,000 ML IV ONE ×2 (01:58→04:04)
[2017-06-16] MEDS ORDERED: METHYLPREDNISOLONE INJ 125 MG/2 ML SDV IV ONE (01:58)
--- NOTE | 2017-06-16 02:02 | ER Document Report ---
ED General - General Chief Complaint: Shortness Of Breath Stated Complaint: DIFFICULTY BREATHING Time Seen by Provider: 06/16/17 01:47 Notes: Patient is a 47-year-old female comes emergency department for chief complaint of cough, shortness of breath, rib pain on the left side. She states she was wheezing, she states she is breathing much better after getting breathing treatments by EMS. She states that she has coughed up a little bit of blood, she denies fever, vomiting, abdominal pain, passing out. Former smoker, former heavy alcohol user, denies any alcohol. Past medical history of type 2 diabetes , JENNIFER, and chronic pain on pain management with oxycodone. She admits to wine earlier today. TRAVEL OUTSIDE OF THE [place] IN LAST 30 DAYS: No - Related Data Allergies/Adverse Reactions: morphine [Morphine] Allergy (Verified 06/13/17 15:18) nitrofurantoin [From Macrobid] Allergy (Verified 06/13/17 15:18) nitrofurantoin macrocrystalline [From Macrobid] Allergy (Verified 06/13/17 15:18 ) Sulfa (Sulfonamide Antibiotics) Allergy (Verified 06/13/17 15:18) sulfamethoxazole [From Bactrim] Allergy (Verified 06/13/17 15:18) trimethoprim [From Bactrim] Allergy (Verified 06/13/17 15:18) red ants Allergy (Severe, Uncoded 06/13/17 15:18) Anaphylaxis bees Allergy (Uncoded 06/13/17 15:18) Past Medical History - General Information source: Patient - Social History Smoking Status: Current Every Day Smoker Smoking Education Provided: Yes - <3 min Frequency of alcohol use: Occasional Drug Abuse: None Lives with: Family Family History: CAD, Malignancy - Past Medical History Cardiac Medical History: Reports: Hx Hypertension Pulmonary Medical History: Reports: Hx Asthma, Hx Bronchitis, Hx COPD Endocrine Medical History: Reports: Hx Diabetes Mellitus Type 2 Renal/ Medical History: Denies: Hx Peritoneal Dialysis GI Medical History: Reports: Hx Ulcer Musculoskeltal Medical History: Denies Hx Gout, Denies Hx Muscle Weakness, Denies Hx Musculoskeletal Deformity, Denies Hx Musculoskeletal Trauma Psychiatric Medical History: Reports: Hx Depression Past Surgical History: Reports: Hx Abdominal Surgery - GBP, Hx Section , Hx Cholecystectomy, Hx Gastric Bypass Surgery, Hx Tonsillectomy - Immunizations Immunizations up to date: Yes Hx Diphtheria, Pertussis, Tetanus Vaccination: Yes - 2017 Review of Systems - Review of Systems Constitutional: No symptoms reported EENT: No symptoms reported Cardiovascular: No symptoms reported Respiratory: See HPI Gastrointestinal: No symptoms reported Genitourinary: No symptoms reported Female Genitourinary: No symptoms reported Musculoskeletal: See HPI Skin: No symptoms reported Hematologic/Lymphatic: No symptoms reported Neurological/Psychological: No symptoms reported Physical Exam - Vital signs Vitals: Resp BP Pulse Ox 33 H 127/77 H 94 06/16/17 01:46 06/16/17 01:46 06/16/17 01:46 Interpretation: Normal - General General appearance: Appears well, Alert - HEENT Head: Normocephalic, Atraumatic Eyes: Normal Pupils: PERRL - Respiratory Respiratory status: No respiratory distress. No: Tachypnea Chest status: Tender - Tender over the left lateral and lower ribs, no swelling or crepitus Breath sounds: Decreased air movement, Nonproductive cough, Wheezing Chest palpation: Normal - Cardiovascular Rhythm: Regular, Tachycardia Heart sounds: Normal auscultation, S1 appreciated, S2 appreciated Murmur: No Normal capillary refill: Yes - Abdominal Inspection: Normal Distension: No distension Bowel sounds: Normal Tenderness: Nontender Organomegaly: No organomegaly - Back Back: Normal, Nontender - Extremities General upper extremity: Normal inspection, Nontender, Normal color, Normal ROM , Normal temperature General lower extremity: Normal inspection, Nontender, Normal color, Normal ROM , Normal temperature, Normal weight bearing. No: Yong's sign - Neurological Neuro grossly intact: Yes Cognition: Normal Orientation: AAOx4 Alize Coma Scale Eye Opening: Spontaneous [place] Coma Scale Verbal: Oriented Alize Coma Scale Motor: Obeys Commands Alize Coma Scale Total: 15 Speech: Normal Motor strength normal: LUE, RUE, LLE, RLE Sensory: Normal - Psychological Associated symptoms: Normal affect, Normal mood - Skin Skin Temperature: Warm Skin Moisture: Dry Skin Color: Normal Course - Re-evaluation Re-evalutation: CBC nonspecific with no leukocytosis or bandemia. Chemistry shows hyperglycemia with no acidosis, patient was given hydration with IV fluids. Chest x-ray does not show any abnormalities. Patient is tachycardic, she received DuoNeb's initially, Solu-Medrol, she was wheezing initially with coughing but this resolved. She continues to smoke. She states she coughed up a little bit of blood earlier, she has no hemoptysis at bedside. After 2 L of normal saline and some Valium for her muscle spasms patient still has some tachycardia. Could be from the Koru nebs although patient states she has been sedentary, she continues to smoke, she reports some hemoptysis. Concern for possible PE, discussed with patient, decision was made to perform CTA. CT does not show pulmonary emboli, does show possible developing pneumonia and small pleural effusion. As result patient will be covered with antibiotics. Patient is asking to leave. She states she feels much better, tachycardia is now 105, patient is breathing well now. Patient smiling and well-appearing. Discussed with patient, patient will be covered with antibiotics, follow-up with her provider for her pain management, decision was made to place patient on a rapidly titrating down prednisone dose although discussion was made about her blood sugars. This was performed because of her wheezing. Discussed smoking cessation. Discussed return precautions in detail, patient states she is ready to leave but she will return if she worsens in any way. - Vital Signs Vital signs: Temp Pulse Resp BP Pulse Ox 98.7 F 24 H 152/90 H 95 06/16/17 01:48 06/16/17 06:01 06/16/17 06:00 06/16/17 06:01 - Laboratory Result Diagrams: 06/16/17 03:10 06/16/17 02:49 Laboratory results interpreted by me: 06/16/17 06/16/17 02:49 03:10 RBC 3.66 L Hgb 10.4 L Hct 31.9 L RDW 30.3 H Metamyelocytes % 1 H Myelocytes % 1 H BUN 4 L Glucose 338 H AST 40 H Alkaline Phosphatase 128 H Discharge - Discharge Clinical Impression: Wheezing, Shortness of breath, Rib pain on left side Condition: Stable Disposition: HOME, SELF-CARE Additional Instructions: Your CAT scan does not show blood clot, does suggest developing pneumonia. Your examination showed wheezing initially, recommendation is for you to take both the doxycycline antibiotic and the prednisone as prescribed. Use your home inhaler and home medications. Follow-up closely with your primary provider within the week for additional evaluation and management. Watch your diet and reduce carbohydrate/sugar intake because the prednisone can raise your blood sugars. Return if you worsen including difficulty breathing, passing out , vomiting, fever of 100.4 greater, or any other concerning symptoms. Prescriptions: Doxycycline Hyclate 100 mg PO BID #14 capsule Prednisone [Deltasone 10 mg Tablet] 10 mg PO ASDIR PRN #21 tablet PRN Reason:
[2017-06-16 03:16] LABS: ALANINE AMINOTRANSFERASE 41 U/L (9-52); ALBUMIN 3.6 g/dL (3.5-5.0); ALCOHOL 171 mg/dL (NONE DETECTED); ALKALINE PHOSPHATASE 128 U/L (38-126); ANION GAP 12 (5-19); ASPARTATE AMINO TRANSFERASE 40 U/L (14-36); BILIRUBIN,DIRECT 0.2 mg/dL (0.0-0.4); BILIRUBIN,TOTAL 0.2 mg/dL (0.2-1.3); BLOOD UREA NITROGEN 4 mg/dL (7-20); CALCIUM 8.4 mg/dL (8.4-10.2); CARBON DIOXIDE 24 mmol/L (22-30); CHLORIDE 103 mmol/L (98-107); GLUCOSE 338 mg/dL (75-110); POTASSIUM 4.3 mmol/L (3.6-5.0); SODIUM 139.2 mmol/L (137-145); TOTAL PROTEIN 6.8 g/dL (6.3-8.2)
--- NOTE | 2017-06-16 03:22 | RADIOLOGY REPORT (SQ) ---
EXAM DESCRIPTION: CHEST SINGLE VIEW CLINICAL HISTORY: cough, shortness of breath COMPARISON: 06/06/2017 FINDINGS: Single frontal view of the chest. The cardiomediastinal silhouette has normal size and contour. No consolidation, pneumothorax, or pleural effusion. Leads overlie the chest. Low lung volumes. No displaced rib fractures identified. Upper abdominal soft tissues are unremarkable. IMPRESSION: 1. No acute pulmonary process identified.
[2017-06-16 03:23] LABS: HEMATOCRIT 31.9 % (36.0-47.0); HEMOGLOBIN 10.4 g/dL (12.0-15.5); MEAN CORPUSCULAR HEMOGLOBIN 28.5 pg (27.0-33.4); MEAN CORPUSCULAR HGB CONC 32.7 g/dL (32.0-36.0); PLATELET COUNT 252 10^3/uL (150-450); RED BLOOD COUNT 3.66 10^6/uL (3.72-5.28); RED CELL DISTRIBUTION WIDTH 30.3 % (11.5-14.0)
[2017-06-16 03:29] LABS: MEAN CORPUSCULAR VOLUME 87 fl (80-97)
[2017-06-16 03:46] LABS: ABSOLUTE LYMPHOCYTES# (MANUAL) 0.8 10^3/uL (0.5-4.7); ABSOLUTE MONOCYTES # (MANUAL) 0.5 10^3/uL (0.1-1.4); ABSOLUTE NEUTROPHILS# (MANUAL) 4.4 10^3/uL (1.7-8.2); BASOPHILS % (MANUAL) 1 % (0-2); EOSINOPHILS % (MANUAL) 3 % (0-6); LYMPHOCYTES % (MANUAL) 13 % (13-45); METAMYELOCYTES % (MANUAL) 1 % (0); MONOCYTES % (MANUAL) 9 % (3-13); SEGMENTED NEUTROPHILS % (MAN) 72 % (42-78); TOTAL CELLS COUNTED 100
[2017-06-16 03:49] LABS: ANISOCYTOSIS 4+; POLYCHROMASIA SLIGHT
[2017-06-16 03:50] LABS: MYELOCYTES % (MANUAL) 1 % (0); PLATELET COMMENT ADEQUATE
[2017-06-16] MEDS ORDERED: DIAZEPAM INJ 10 MG/2 ML DISP.SYRIN IV ONE (04:13)
--- NOTE | 2017-06-16 06:37 | RADIOLOGY REPORT (SQ) ---
EXAM DESCRIPTION: CTA of the chest per PE protocol with contrast. CLINICAL HISTORY: tachycardia, hemoptysis COMPARISON: 04/05/2016 TECHNIQUE: CTA of the chest obtained following the uncomplicated intravenous administration of 100 mL Isovue-370. 3-D/MIP reformatted images of the chest available for evaluation. DLP: 909.48 mGycm FINDINGS: Chest: Pulmonary arteries: Contrast bolus is adequate.No filling defects identified in the pulmonary arteries to suggest pulmonary embolus. Thyroid:No abnormalities of the visualized thyroid. Great Vessels:Great vessels have normal anatomic configuration. Thoracic Aorta: Atherosclerotic calcification aortic arch. Heart: Cardiomegaly. Coronary artery atherosclerosis. No significant pericardial effusion. Lymph Nodes:No enlarged mediastinal lymph nodes identified. Esophagus: Small hiatal hernia. Other:No additional findings. Lungs: Left basilar airspace opacity centrilobular and paraseptal emphysematous changes. Respiratory motion artifact. Minimal scarring or atelectasis in the right lung base. Pleura: Small left pleural effusion. Incidental finding of an azygos lobe. Trachea/Airways:No abnormalities of the visualized trachea or airways. Bones: Degenerative spondylosis of the visualized thoracic spine. Upper Abdomen:Limited images of the upper abdomen demonstrate no definite abnormalities of visualized portions of the liver, pancreas, spleen, adrenal glands, or kidneys. Postoperative change in the stomach. IMPRESSION: 1. No pulmonary embolus identified. 2. Small left pleural effusion. 3. Mild left basilar airspace opacity may represent atelectasis or developing pneumonia. 4. Centrilobular and paraseptal emphysematous change. This exam was performed according to our departmental dose-optimization program, which includes automated exposure control, adjustment of the mA and/or kV according to patient size and/or use of iterative reconstruction technique.
[2017-06-16] MEDS ORDERED: DOXYCYCLINE HYCLATE 100 MG TABLET PO ONE (06:52)
[2017-06-16] MEDS ORDERED: HYDROCODONE/ACETAMINOPHEN 5-325 MG (6 TAB/ER DISP) PO PRN (06:52)
[2017-06-16] MEDS ORDERED: MORPHINE SULFATE IR 15 MG TABLET PO ONE (06:52)
[2017-06-16 07:10] VITALS: BP 145/86
[2017-06-16 15:27] LABS: PATH REVIEW PATHOLOGIST REVIEWED
== END 2017-06-16 07:13 | disposition home or self-care (01) ==
LOC: ER 01:36
DX: R06.02 Shortness of breath (principal); R07.81 Pleurodynia; R06.2 Wheezing; R05 Cough; Z79.899 Other long term (current) drug therapy; F17.200 Nicotine dependence, unspecified, uncomplicated; E11.9 Type 2 diabetes mellitus without complications; G89.29 Other chronic pain; I10 Essential (primary) hypertension; J44.9 Chronic obstructive pulmonary disease, unspecified
CPT/HCPCS: 99285; 96361; 96374; 96375; 36415; 80307; 84703; 85025; 80053; 71045; 71275; J3360; J3490; J3010; J2930; J2405; J7030

== ENCOUNTER 2017-08-03 23:41 | Emergency (ER) | payer MEDICAID ==
--- NOTE | 2017-08-04 01:10 | ER Document Report ---
ED General - General Chief Complaint: Fall Injury - L shoulder pain, 4th toe L side Stated Complaint: FALL Time Seen by Provider: 08/04/17 01:08 Mode of Arrival: Ambulatory Information source: Patient Notes: Patient left without being seen by provider TRAVEL OUTSIDE OF THE [place] IN LAST 30 DAYS: No - Related Data Allergies/Adverse Reactions: morphine [Morphine] Allergy (Verified 06/13/17 15:18) nitrofurantoin [From Macrobid] Allergy (Verified 06/13/17 15:18) nitrofurantoin macrocrystalline [From Macrobid] Allergy (Verified 06/13/17 15:18 ) Sulfa (Sulfonamide Antibiotics) Allergy (Verified 06/13/17 15:18) sulfamethoxazole [From Bactrim] Allergy (Verified 06/13/17 15:18) trimethoprim [From Bactrim] Allergy (Verified 06/13/17 15:18) red ants Allergy (Severe, Uncoded 06/13/17 15:18) Anaphylaxis bees Allergy (Uncoded 06/13/17 15:18) Past Medical History - Social History Smoking Status: Current Every Day Smoker Family History: CAD, Malignancy Patient has suicidal ideation: No Patient has homicidal ideation: No - Past Medical History Cardiac Medical History: Reports: Hx Hypertension Pulmonary Medical History: Reports: Hx Asthma, Hx Bronchitis, Hx COPD Endocrine Medical History: Reports: Hx Diabetes Mellitus Type 2 Renal/ Medical History: Denies: Hx Peritoneal Dialysis GI Medical History: Reports: Hx Ulcer Musculoskeltal Medical History: Denies Hx Gout, Denies Hx Muscle Weakness, Denies Hx Musculoskeletal Deformity, Denies Hx Musculoskeletal Trauma Psychiatric Medical History: Reports: Hx Depression Past Surgical History: Reports: Hx Abdominal Surgery - GBP, Hx Section , Hx Cholecystectomy, Hx Gastric Bypass Surgery, Hx Tonsillectomy - Immunizations Immunizations up to date: Yes Hx Diphtheria, Pertussis, Tetanus Vaccination: Yes - 2016 Physical Exam - Vital signs Vitals: Temp Pulse Resp BP Pulse Ox 99.1 F 87 20 133/87 H 100 08/04/17 00:07 08/04/17 00:07 08/04/17 00:07 08/04/17 00:07 08/04/17 00:07 Course - Re-evaluation Re-evalutation: 08/04/17 01:16 Patient left without being seen by provider - Vital Signs Vital signs: Temp Pulse Resp BP Pulse Ox 99.1 F 87 20 133/87 H 100 08/04/17 00:07 08/04/17 00:07 08/04/17 00:07 08/04/17 00:07 08/04/17 00:07 Discharge - Discharge Clinical Impression: Fall Qualifiers: Encounter type: initial encounter Qualified Code(s): W19.XXXA - Unspecified fall, initial encounter Condition: Stable Disposition: ELOPED Referrals: NATALIIA PAN DO [Primary Care Provider] - Follow up as needed
--- NOTE | 2017-08-04 01:23 | RADIOLOGY REPORT (SQ) ---
EXAM DESCRIPTION: XR SHOULDER 2 OR MORE VIEWS CLINICAL HISTORY: 47 years Female, pain s/p fall COMPARISON: None. Findings: Mild osteoarthritis of the left acromioclavicular joint.. Bones, joints, and soft tissues of the XR SHOULDER 3 VIEWS appear otherwise intact. IMPRESSION: No acute findings.
--- NOTE | 2017-08-04 01:35 | RADIOLOGY REPORT (SQ) ---
EXAM DESCRIPTION: TOE LEFT COMPLETED DATE/TIME: 08/04/2017 12:34 am REASON FOR STUDY: pain s/p fall COMPARISON: None. NUMBER OF VIEWS: Three views left foot and toes. LIMITATIONS: None. FINDINGS: Normal bone density. Oblique fracture through the proximal phalanx 4th toe without signif icant displacement. Limited further evaluation on the images provided. Other bones intact. OTHER: No other significant finding. IMPRESSION: Proximal phalanx 4th toe fracture without displacement. TECHNICAL DOCUMENTATION: JOB ID: [id number] Reading location - IP/workstation name: [email or web address]
[2017-08-04 02:00] VITALS: BP 128/90
--- NOTE | 2017-08-04 02:03 | ER Document Report ---
ED General - General Chief Complaint: Fall Injury - L shoulder pain, 4th toe L side Stated Complaint: FALL Time Seen by Provider: 08/04/17 01:08 Mode of Arrival: Ambulatory Notes: Patient came back for evaluation. Patient initially left and staff thought that patient left without being seen by provider. Patient initially presented for evaluation of mechanical fall and left shoulder injury as well as left toe pain. Patient reported that she sustained a mechanical fall without any head injury or loss of consciousness. Pain is localized to the left shoulder, achy, worse with movement as well as change in position, severity of symptoms a 6 out of 10. Patient also has constant persistent pain in her left fourth toe, severity of symptoms is 4 out of 10. Patient smells of alcohol. TRAVEL OUTSIDE OF THE [place] IN LAST 30 DAYS: No - Related Data Allergies/Adverse Reactions: morphine [Morphine] Allergy (Verified 06/13/17 15:18) nitrofurantoin [From Macrobid] Allergy (Verified 06/13/17 15:18) nitrofurantoin macrocrystalline [From Macrobid] Allergy (Verified 06/13/17 15:18 ) Sulfa (Sulfonamide Antibiotics) Allergy (Verified 06/13/17 15:18) sulfamethoxazole [From Bactrim] Allergy (Verified 06/13/17 15:18) trimethoprim [From Bactrim] Allergy (Verified 06/13/17 15:18) red ants Allergy (Severe, Uncoded 06/13/17 15:18) Anaphylaxis bees Allergy (Uncoded 06/13/17 15:18) Past Medical History - General Information source: Patient - Social History Smoking Status: Current Every Day Smoker Family History: CAD, Malignancy Patient has suicidal ideation: No Patient has homicidal ideation: No - Past Medical History Cardiac Medical History: Reports: Hx Hypertension Pulmonary Medical History: Reports: Hx Asthma, Hx Bronchitis, Hx COPD Endocrine Medical History: Reports: Hx Diabetes Mellitus Type 2 Renal/ Medical History: Denies: Hx Peritoneal Dialysis GI Medical History: Reports: Hx Ulcer Musculoskeltal Medical History: Denies Hx Gout, Denies Hx Muscle Weakness, Denies Hx Musculoskeletal Deformity, Denies Hx Musculoskeletal Trauma Psychiatric Medical History: Reports: Hx Depression Past Surgical History: Reports: Hx Abdominal Surgery - GBP, Hx Section , Hx Cholecystectomy, Hx Gastric Bypass Surgery, Hx Tonsillectomy - Immunizations Immunizations up to date: Yes Hx Diphtheria, Pertussis, Tetanus Vaccination: Yes - 2017 Review of Systems - Review of Systems Notes: REVIEW OF SYSTEMS: CONSTITUTIONAL: -fevers, -chills EENT: -eye pain, -difficulty swallowing, -nasal congestion CARDIOVASCULAR: -chest pain, -syncope. RESPIRATORY: -cough, -SOB GASTROINTESTINAL: -abdominal pain, -nausea, -vomiting, -diarrhea GENITOURINARY: -dysuria, -hematuria MUSCULOSKELETAL: + Shoulder pain, placental pain SKIN: -rash or skin lesions. HEMATOLOGIC: -easy bruising or bleeding. LYMPHATIC: -swollen, enlarged glands. NEUROLOGICAL: -altered mental status or loss of consciousness, -headache, - neurologic symptoms PSYCHIATRIC: -anxiety, -depression. ALL OTHER SYSTEMS REVIEWED AND NEGATIVE. Physical Exam - Vital signs Vitals: Temp Pulse Resp BP Pulse Ox 99.1 F 87 20 133/87 H 100 08/04/17 00:07 08/04/17 00:07 08/04/17 00:07 08/04/17 00:08/04/17 00:07 - Notes Notes: Reviewed vital signs and nursing note as charted by RN. CONSTITUTIONAL: Alert and oriented and responds appropriately to questions HEAD: Normocephalic; atraumatic EYES: PERRL; Conjunctivae clear, sclerae non-icteric ENT: normal nose; no rhinorrhea; moist mucous membranes; pharynx without lesions noted NECK: Supple without meningismus; non-tender; no cervical lymphadenopathy, no masses CARD: Regular rate and rhythm; no murmurs, no clicks, no rubs, no gallops; symmetric distal pulses RESP: Normal chest excursion without splinting or tachypnea; breath sounds clear and equal bilaterally ABD/GI: Normal bowel sounds; non-distended; soft, BACK: The back appears normal and is non-tender to palpation EXT: Left shoulder examination without any obvious deformity, patient has tenderness to palpation along left shoulder joint, radial pulses strong and palpable, sensation is present in all dermatomes of the upper extremity, motor strength is 5 out of 5 in the hand Left foot examination with tenderness to palpation of the fourth toe, DP and PT palpable, good perfusion distally in the toe SKIN: Normal color for age and race; warm; dry; good turgor; capillary refill < 2 seconds; no acute lesions noted NEURO: Cranial nerves 3-12 intact. Motor strength 5/5 bilaterally. Sensation intact to touch bilaterally. No pronator drift. Finger to nose intact bilaterally PSYCH: Smells of alcohol, denies any suicidal homicidal ideation Course - Re-evaluation Re-evalutation: 08/04/17 02:01 Patient with left shoulder injury as well as toe pain X-ray did not reveal any acute dislocation or fracture of the shoulder, patient was treated with a sling of the upper extremity Toe was noted to have fracture, recommended melisa taping as well as pain control Follow-up with primary care physician Patient agree with disposition planning - Vital Signs Vital signs: Temp Pulse Resp BP Pulse Ox 99.1 F 87 20 133/87 H 100 08/04/17 00:07 08/04/17 00:07 08/04/17 00:07 08/04/17 00:07 08/04/17 00:07 - Diagnostic Test Radiology reviewed: Image reviewed - Fourth toe fracture, normal shoulder film Procedures - Joint Reduction/Fracture Care Left Shoulder Time completed: 02:03 - Splint application Consent obtained: Yes Conscious sedation: No Notes: 08/04/17 02:03 Patient was splinted and left sling, normal skin, distal perfusion with good capillary refill, radial pulses strong and palpable No complications Discharge - Discharge Clinical Impression: Fracture, toe, Sprain of shoulder, left Fall Qualifiers: Encounter type: initial encounter Qualified Code(s): W19.XXXA - Unspecified fall, initial encounter Condition: Stable Instructions: Shoulder Injury ([facility]), Fractured Toe ([facility]) Referrals: NATALIIA PAN DO [Primary Care Provider] - Follow up as needed
== END 2017-08-04 01:58 | disposition home or self-care (01) ==
LOC: ER 23:41
DX: S92.515A Nondisplaced fracture of proximal phalanx of left lesser toe(s), initial encounter for closed fracture (principal); S43.402A Unspecified sprain of left shoulder joint, initial encounter; M25.512 Pain in left shoulder; W19.XXXA Unspecified fall, initial encounter; Y92.009 Unspecified place in unspecified non-institutional (private) residence as the place of occurrence of the external cause; F17.200 Nicotine dependence, unspecified, uncomplicated; I10 Essential (primary) hypertension; J44.9 Chronic obstructive pulmonary disease, unspecified; E11.9 Type 2 diabetes mellitus without complications; Z88.5 Allergy status to narcotic agent; Z88.1 Allergy status to other antibiotic agents; Z88.2 Allergy status to sulfonamides; Z91.030 Bee allergy status; Z87.892 Personal history of anaphylaxis; Z91.038 Other insect allergy status; Z98.84 Bariatric surgery status
CPT/HCPCS: 99283

== ENCOUNTER 2017-08-12 08:04 | Emergency (ER) | payer MEDICAID ==
[2017-08-12] MEDS ORDERED: IPRATROPIUM/ALBUTEROL 0.5-2.5 MG/3 ML AMPUL NEB ONE (08:56)
--- NOTE | 2017-08-12 08:56 | RADIOLOGY REPORT (SQ) ---
EXAM DESCRIPTION: SHOULDER RIGHT 2 OR MORE VIEWS COMPLETED DATE/TIME: 08/12/2017 8:49 am REASON FOR STUDY: pain COMPARISON: None. NUMBER OF VIEWS: Three views. TECHNIQUE: Internal rotation, external rotation, and Y view images acquired of the right shoulder. LIMITATIONS: None. FINDINGS: MINERALIZATION: Normal. BONES: No acute fracture or dislocation. No worrisome bone lesions. JOINTS: Normal glenohumeral joint alignment. No acromioclavicular joint widening VISUALIZED LUNGS AND RIBS: No pneumothorax. No rib fracture. SOFT TISSUES: No radiopaque foreign body. OTHER: No other significant finding. IMPRESSION: NEGATIVE STUDY OF THE RIGHT SHOULDER. NO RADIOGRAPHIC EVIDENCE OF ACUTE INJURY. TECHNICAL DOCUMENTATION: JOB ID: [id number] [employer]- All Rights Reserved Reading location - IP/workstation name: [email or web address]
--- NOTE | 2017-08-12 09:40 | ER Document Report ---
HPI - HPI Patient complains to provider of: Right shoulder pain and urinary dribbling Onset: Last week Pain Level: 3 Context: 47-year-old female smoker complaining of multiple problems. One is urinary dribbling without dysuria and wonders if she has a urinary tract infection. To she is complaining of right shoulder pain and it hurts to abduct it. She is also complaining of pain when she coughs. She has a history of asthma and COPD and ran out of her albuterol Nebules. No chest pain or shortness of breath. Associated Symptoms: None Exacerbated by: Movement, Coughing Relieved by: Denies Similar symptoms previously: No Recently seen / treated by doctor: No - ROS ROS below otherwise negative: Yes Systems Reviewed and Negative: Yes All other systems reviewed and negative - URINARY Urinary: REPORTS: Urgency - MUSCULOSKELETAL Musculoskeletal: REPORTS: Extremity pain - Right shoulder Past Medical History - General Information source: Patient - Social History Smoking Status: Current Every Day Smoker Chew tobacco use (# tins/day): No Frequency of alcohol use: Social Lives with: Spouse/Significant other Family History: CAD, Malignancy Patient has suicidal ideation: No Patient has homicidal ideation: No - Past Medical History Cardiac Medical History: Reports: Hx Hypertension Pulmonary Medical History: Reports: Hx Asthma, Hx Bronchitis, Hx COPD Endocrine Medical History: Reports: Hx Diabetes Mellitus Type 2 Renal/ Medical History: Denies: Hx Peritoneal Dialysis GI Medical History: Reports: Hx Ulcer Musculoskeltal Medical History: Reports Other - Recent fractured left shoulder Psychiatric Medical History: Reports: Hx Depression Past Surgical History: Reports: Hx Abdominal Surgery - GBP, Hx Section , Hx Cholecystectomy, Hx Gastric Bypass Surgery, Hx Tonsillectomy - Immunizations Immunizations up to date: Yes Hx Diphtheria, Pertussis, Tetanus Vaccination: Yes - 2017 [facility] Provider Document - CONSTITUTIONAL Agree With Documented VS: Yes Exam Limitations: No Limitations General Appearance: No Apparent Distress - INFECTION CONTROL TRAVEL OUTSIDE OF THE [place] IN LAST 30 DAYS: No - HEENT HEENT: Normocephalic - NECK Neck: Supple - RESPIRATORY Respiratory: No Respiratory Distress, Wheezing - coarse Expiratory bilateral - CARDIOVASCULAR Cardiovascular: Regular Rate, Regular Rhythm - GI/ABDOMEN Gastrointestinal: Abdomen Soft, Abdomen Non-Tender, No Organomegaly - BACK Back: negative: CVA Tenderness-Right, CVA Tenderness-Left - MUSCULOSKELETAL/EXTREMETIES Musculoskeletal/Extremeties: LUCI Notes: Pain inside right shoulder joint with abduction of the right arm. Neurovascular is intact. - NEURO Level of Consciousness: Awake, Alert Motor/Sensory: No Motor Deficit, No Sensory Deficit Course - Re-evaluation Re-evalutation: 08/12/17 xray is negative. ua tr bacteria, urine culture is pending - Vital Signs Vital signs: Temp Pulse Resp BP Pulse Ox 99.3 F 102 H 18 119/76 97 08/12/17 08:10 08/12/17 08:10 08/12/17 08:10 08/12/17 08:10 08/12/17 08:10 Discharge - Discharge Clinical Impression: Right shoulder arthralgia, Urinary urgency, COPD Condition: Good Disposition: HOME, SELF-CARE Instructions: Acetaminophen, Arthralgia ([facility]), Cephalexin ([facility]), Chronic Obstructive Lung Disease ([facility]), Ibuprofen (General) ([facility]), Stop Smoking ([facility]), Urinary Tract Infection ([facility]) Additional Instructions: Schedule appointment with orthopedic doctor for your right shoulder. Shoulder range of motion or you will get frozen shoulder Tylenol Motrin keflex for 5 days for possible urinary tract infection, urine culture is pending Return to the emergency room any concerns Stop smoking Prescriptions: Albuterol Sulfate [Ventolin 0.083% Neb 2.5 mg/3 mL Ampul] 2.5 mg NEB Q3HP PRN # 25 vial PRN Reason: Albuterol Sulfate [Proair HFA Inhalation Aerosol 8.5 gm MDI] 2 puff IH Q3HP PRN #1 hfa.aer.ad PRN Reason: Ibuprofen [Motrin 800 mg Tablet] 800 mg PO Q8HP PRN #30 tablet PRN Reason: Cephalexin Monohydrate [Keflex 500 mg Capsule] 500 mg PO QID #28 capsule Prednisone [Deltasone 20 mg Tablet] 40 mg PO DAILY #8 tablet Referrals: NATALIIA PAN DO [Primary Care Provider] - 08/13/17
[2017-08-12 09:43] LABS: APPEARANCE,URINE SLIGHTLY-CLOUDY; BILIRUBIN,URINE NEGATIVE (NEGATIVE); COLOR,URINE YELLOW; GLUCOSE, URINE NEGATIVE (NEGATIVE); KETONES,URINE NEGATIVE (NEGATIVE); LEUKOCYTE ESTERASE,URINE TRACE (NEGATIVE); NITRITE,URINE NEGATIVE (NEGATIVE); PROTEIN,URINE NEGATIVE (NEGATIVE); URINE SPECIFIC GRAVITY 1.006; UROBILINOGEN,URINE NEGATIVE mg/dL (<2.0)
[2017-08-12] MEDS ORDERED: PREDNISONE 20 MG TABLET PO ONE (09:53)
--- NOTE | 2017-08-12 09:54 | RADIOLOGY REPORT (SQ) ---
EXAM DESCRIPTION: CHEST 2 VIEWS COMPLETED DATE/TIME: 08/12/2017 9:37 am REASON FOR STUDY: coughk wheeze COMPARISON: Two-view chest 06/06/2017, 03/04/2017 EXAM PARAMETERS: NUMBER OF VIEWS: two views TECHNIQUE: Digital Frontal and Lateral radiographic views of the chest acquired. RADIATION DOSE: NA LIMITATIONS: none FINDINGS: LUNGS AND PLEURA: No opacities, masses or pneumothorax. No pleural effusion. MEDIASTINUM AND HILAR STRUCTURES: No masses or contour abnormalities. HEART AND VASCULAR STRUCTURES: Heart normal size. No evidence for failure. BONES: No acute findings. HARDWARE: None in the chest. OTHER: No other significant finding. IMPRESSION: NO ACUTE RADIOGRAPHIC FINDING IN THE CHEST. TECHNICAL DOCUMENTATION: JOB ID: [id number] [employer]- All Rights Reserved Reading location - IP/workstation name: [facility]-[email or web address]
[2017-08-12 10:13] VITALS: BP 122/79
== END 2017-08-12 10:13 | disposition home or self-care (01) ==
LOC: ER 08:04
DX: M25.511 Pain in right shoulder (principal); R39.15 Urgency of urination; J44.9 Chronic obstructive pulmonary disease, unspecified; F17.200 Nicotine dependence, unspecified, uncomplicated; I10 Essential (primary) hypertension; E11.9 Type 2 diabetes mellitus without complications; Z90.49 Acquired absence of other specified parts of digestive tract; Z98.84 Bariatric surgery status
CPT/HCPCS: 94640; 99284; 87086; 81001; 71046; 73030; J7512; J7620

== ENCOUNTER 2017-08-23 16:24 | Emergency (ER) | payer SELFPAY ==
[2017-08-23] MEDS ORDERED: FLUCONAZOLE 100 MG TABLET PO ONE (16:47)
--- NOTE | 2017-08-23 16:50 | ER Document Report ---
HPI - HPI Pain Level: 3 Context: Patient is a 47-year-old female presents emergency room with a chief complaint of pyuria as well as vaginal irritation, discharge and inguinal irritation. Patient states that she was on antibiotics 2 weeks ago for UTI but she completed half the course for she states that her symptoms improved are still present admits to breaking out in a yeast infection since then. She states that the symptoms been going on for the past week and a half. Patient states that she is only applied cornstarch but denies utilizing any [id number] methods or following up with her primary care doctor. Patient with a history of diabetes. - URINARY Urinary: REPORTS: Dysuria, Urgency, Frequency - REPRODUCTIVE Reproductive: REPORTS: Abnormal bleeding / discharge - yeast like rash. DENIES : :, Postmenopausal Past Medical History - Social History Smoking Status: Current Every Day Smoker Chew tobacco use (# tins/day): No Frequency of alcohol use: Occasional Drug Abuse: None Family History: CAD, Malignancy Patient has suicidal ideation: No Patient has homicidal ideation: No - Past Medical History Cardiac Medical History: Reports: Hx Hypertension Pulmonary Medical History: Reports: Hx Asthma, Hx Bronchitis, Hx COPD Endocrine Medical History: Reports: Hx Diabetes Mellitus Type 2 Renal/ Medical History: Denies: Hx Peritoneal Dialysis GI Medical History: Reports: Hx Ulcer Musculoskeltal Medical History: Denies Hx Gout, Denies Hx Muscle Weakness, Denies Hx Musculoskeletal Deformity, Denies Hx Musculoskeletal Trauma Psychiatric Medical History: Reports: Hx Depression Past Surgical History: Reports: Hx Abdominal Surgery - GBP, Hx Section , Hx Cholecystectomy, Hx Gastric Bypass Surgery, Hx Tonsillectomy - Immunizations Immunizations up to date: Yes Hx Diphtheria, Pertussis, Tetanus Vaccination: Yes - 2017 [facility] Provider Document - CONSTITUTIONAL Agree With Documented VS: Yes Notes: PHYSICAL EXAM GENERAL: Alert, interacts well. ABDOMEN: Soft, nondistended, nontender. No guarding, rebound, or rigidity.. Bowel sounds present in all 4 quadrants. Female : Patient with diffuse erythematous well demarcated rash of the inguinal area on bilateral inner thighs with a irritated and erythematous vulva and vagina with white clumpy discharge without odor EXTREMITIES: Moves all 4 extremities spontaneously. No edema, radial and dorsalis pedis pulses 2/4 bilaterally. No cyanosis. NEUROLOGICAL: Alert and oriented x4. Normal speech. PSYCH: Normal affect, normal mood. SKIN: Warm, dry, normal turgor. No rashes or lesions noted. - INFECTION CONTROL TRAVEL OUTSIDE OF THE [place] IN LAST 30 DAYS: No Course - Re-evaluation Re-evalutation: Patient is a 47 old female is hemodynamically stable, no acute distress and afebrile. Patient's presentation is consistent with a vaginal candidiasis infection and is now involving her inguinal areas bilaterally. Will treat with p.o. Diflucan here and [id number] clotrimazole cream to be applied twice a day. Given the patient states she is still symptomatic and given her risk for diabetes will treat with p.o. antibiotics for her UTI to have her follow-up with her primary care physician. Otherwise patient has benign physical exam with any concern for acute intra-abdominal pathology. - Vital Signs Vital signs: Temp Pulse Resp BP Pulse Ox 99.1 F 106 H 20 128/96 H 94 08/23/17 16:28 08/23/17 16:28 08/23/17 16:28 08/23/17 16:28 08/23/17 16:28 Discharge - Discharge Clinical Impression: Vulvovaginal candidiasis, UTI (urinary tract infection) Condition: Good Disposition: HOME, SELF-CARE Instructions: Vaginal Yeast Infection ([facility]) Prescriptions: Cephalexin Monohydrate [Keflex 500 mg Capsule] 500 mg PO BID #10 capsule Clotrimazole [Lotrimin AF] 12 gm TP BID #1 cream..g. Fluconazole [Diflucan] 150 mg PO ONCE PRN #1 tablet PRN Reason: Referrals: NATALIIA PAN DO [Primary Care Provider] - Follow up in 1 week
[2017-08-23 17:14] LABS: APPEARANCE,URINE CLEAR; BILIRUBIN,URINE NEGATIVE (NEGATIVE); COLOR,URINE STRAW; GLUCOSE, URINE 50 mg/dL (NEGATIVE); KETONES,URINE NEGATIVE (NEGATIVE); LEUKOCYTE ESTERASE,URINE TRACE (NEGATIVE); NITRITE,URINE NEGATIVE (NEGATIVE); PROTEIN,URINE NEGATIVE (NEGATIVE); URINE SPECIFIC GRAVITY 1.003; UROBILINOGEN,URINE NEGATIVE mg/dL (<2.0)
[2017-08-23 18:04] VITALS: BP 135/88
== END 2017-08-23 18:03 | disposition home or self-care (01) ==
LOC: ER 16:24
DX: N39.0 Urinary tract infection, site not specified (principal); B37.3 Candidiasis of vulva and vagina; F17.200 Nicotine dependence, unspecified, uncomplicated; J44.9 Chronic obstructive pulmonary disease, unspecified; I10 Essential (primary) hypertension; E11.9 Type 2 diabetes mellitus without complications
CPT/HCPCS: 81001; 99283

== ENCOUNTER 2017-10-26 03:45 | Emergency (ER) | payer SELFPAY ==
[2017-10-26] MEDS ORDERED: NORMAL SALINE 1000 ML 1,000 ML IV ONE (04:06)
[2017-10-26] MEDS ORDERED: KETOROLAC TROMETHAMINE INJ/PF 30 MG/1 ML SDV IV ONE (04:06)
--- NOTE | 2017-10-26 04:12 | ER Document Report ---
ED General - General Chief Complaint: Abdominal Pain Stated Complaint: FLANK PAIN Time Seen by Provider: 10/26/17 03:58 Notes: Patient is a 47-year-old female presents with complaint of right flank and right lower quadrant abdominal pain. She says started approximately 8 hours ago. She does have a former alcoholic but says that she really drinks and has had one beer today. She denies any vomiting. No diarrhea. No blood in her stool. She does have a history of previous gastric ulcers but is not having any pain in upper abdomen. She has previous history of cholecystectomy as well as gastric bypass. TRAVEL OUTSIDE OF THE [place] IN LAST 30 DAYS: No - Related Data Allergies/Adverse Reactions: morphine [Morphine] Allergy (Verified 08/12/17 09:20) nitrofurantoin [From Macrobid] Allergy (Verified 08/12/17 09:20) nitrofurantoin macrocrystalline [From Macrobid] Allergy (Verified 08/12/17 09:20 ) Sulfa (Sulfonamide Antibiotics) Allergy (Verified 08/12/17 09:20) sulfamethoxazole [From Bactrim] Allergy (Verified 08/12/17 09:20) trimethoprim [From Bactrim] Allergy (Verified 08/12/17 09:20) red ants Allergy (Severe, Uncoded 08/12/17 09:20) Anaphylaxis bees Allergy (Uncoded 08/12/17 09:20) Past Medical History - Social History Smoking Status: Current Every Day Smoker Chew tobacco use (# tins/day): No Frequency of alcohol use: Occasional Drug Abuse: None Family History: CAD, Malignancy Patient has suicidal ideation: No Patient has homicidal ideation: No - Past Medical History Cardiac Medical History: Reports: Hx Hypertension Pulmonary Medical History: Reports: Hx Asthma, Hx Bronchitis, Hx COPD Endocrine Medical History: Reports: Hx Diabetes Mellitus Type 2 Renal/ Medical History: Denies: Hx Peritoneal Dialysis GI Medical History: Reports: Hx Ulcer Musculoskeletal Medical History: Denies Hx Gout, Denies Hx Muscle Weakness, Denies Hx Musculoskeletal Deformity, Denies Hx Musculoskeletal Trauma Psychiatric Medical History: Reports: Hx Depression Past Surgical History: Reports: Hx Abdominal Surgery - GBP, Hx Section , Hx Cholecystectomy, Hx Gastric Bypass Surgery, Hx Tonsillectomy - Immunizations Immunizations up to date: Yes Hx Diphtheria, Pertussis, Tetanus Vaccination: Yes - 2017 Review of Systems - Review of Systems Notes: My Normal Review Basic REVIEW OF SYSTEMS: CONSTITUTIONAL : Denies fever, chills, or sweats. Denies recent illness. EENT: Denies eye, ear, throat, or mouth pain or symptoms. Denies nasal or sinus congestion. CARDIOVASCULAR: Denies chest pain. RESPIRATORY: Denies cough, cold, or chest congestion. Denies shortness of breath, difficulty breathing, or wheezing. GASTROINTESTINAL: Right-sided abdominal pain GENITOURINARY: Denies difficulty urinating, painful urination, burning, frequency, or blood in urine. FEMALE GENITOURINARY: Denies vaginal bleeding, abnormal or irregular periods. LMP: MUSCULOSKELETAL: Denies neck or back pain or joint pain or swelling. SKIN: Denies rash or skin lesions. NEUROLOGICAL: Denies altered mental status or loss of consciousness. Denies headache. Denies weakness or paralysis or loss of use of either side. Denies problems with gait or speech. Denies sensory or motor loss. ALL OTHER SYSTEMS REVIEWED AND NEGATIVE. Physical Exam - Vital signs Vitals: Temp Pulse Resp BP Pulse Ox 98.9 F 92 20 117/77 100 10/26/17 03:51 10/26/17 03:51 10/26/17 03:51 10/26/17 03:51 10/26/17 03:51 - Notes Notes: General Appearance: Well nourished, alert, cooperative, no acute distress, patient has an odd presentation. Should be lying are fine and when all son jump off the bed and screaming pain and then laid back down. She does this multiple times over and over again. The pain seems to come in waves and happen every 30 seconds to a minute. Vitals: reviewed, See vital signs table. Head: no swelling or tenderness to the head Eyes: PERRL, EOMI, Conjuctiva clear Mouth: No decreasd moisture Throat: No tonsillar inflammation, No airway obstruction, No lymphadenopathy Neck: Supple, no neck tenderness, No thyromegaly Lungs: No wheezing, No rales, No rhonci, No accessory muscle use, good air exchange bilaterally. Heart: Normal rate, Regular rythm, No murmur, no rub Abdomen: Normal BS, soft, No rigidity, patient's abdomen is completely nontender except for some pain to palpation right lower quadrant. Patient however will sit up and lay down without any difficulty. I am able to flex her right hip and leg without causing her any pain whatsoever. She has no pain to deep palpation on the remainder of her abdomen. Extremities: strength 5/5 in all extremities, good pulses in all extremities, no swelling or tenderness in the extremities, no edema. Skin: warm, dry, appropriate color, no rash Neuro: speech clear, oriented x 3, normal affect, responds appropriately to questions. Course - Re-evaluation Re-evalutation: 10/26/17 04:08 On evaluation patient has pain to the right side of her abdomen. It is mostly right lower quadrant right flank. Her pain is very colicky during exam. This makes me concerned this could be a kidney stone. I have ordered a CT scan. I have ordered Toradol for pain. She is allergic to multiple medications including some opiates and therefore think Toradol is most appropriate. I did review her previous labs and she has no history of renal insufficiency or kidney failure. We will give her some nausea medication. I have ordered blood work. Appendicitis is also a possibility but I think is less likely based on her presentation and exam. 10/26/17 05:56 Patient's white count came back normal. CT scan did not show appendicitis. Exam does have some focal right lower quadrant tenderness however she does not have any pain to palpation on remainder of abdomen and she has no peritoneal signs and she does not have any pain with movement or twisting or raising her leg. Her exam therefore is not very consistent with appendicitis. Urinalysis does show significant urinary tract infection. Also the patient's alcohol level came back very high. I talked to patient length about my concerns that she continues to have alcoholism and alcohol abuse. She is agreeable now admits that she has been drinking large amounts of alcohol. She says she is scheduled to see her psychiatrist. She says she has been stressed the recent family issues. She is not suicidal. Informed her I will place her on antibiotic. I informed her that I want her to return to ER if she has worsening pain, fevers, vomiting, or if she feels unwell. Patient agrees the plan will be discharged home. Dictation of this chart was performed using voice recognition software; therefore, there may be some unintended grammatical errors. - Vital Signs Vital signs: Temp Pulse Resp BP Pulse Ox 98.9 F 92 20 117/77 100 10/26/17 03:51 10/26/17 03:51 10/26/17 03:51 10/26/17 03:51 10/26/17 03:51 - Laboratory Result Diagrams: 10/26/17 04:20 10/26/17 04:20 Laboratory results interpreted by me: 10/26/17 10/26/17 10/26/17 04:20 04:20 04:20 RBC 3.31 L Hgb 10.9 L Hct 32.8 L MCV 99 H RDW 28.8 H Lymphocytes % 47.2 H Sodium 149.0 H Chloride 111 H Carbon Dioxide 20 L BUN 5 L Glucose 161 H Direct Bilirubin 0.5 H AST 169 H ALT 73 H Alkaline Phosphatase 210 H Urine Protein 30 H Urine Blood SMALL H Urine Nitrite POSITIVE H Ur Leukocyte Esterase MODERATE H Serum Alcohol 363 H* Discharge - Discharge Clinical Impression: UTI (urinary tract infection) Qualifiers: Urinary tract infection type: site unspecified Hematuria presence: without hematuria Qualified Code(s): N39.0 - Urinary tract infection, site not specified Abdominal pain Qualifiers: Abdominal location: right lower quadrant Qualified Code(s): R10.31 - Right lower quadrant pain Condition: Good Disposition: HOME, SELF-CARE Additional Instructions: Your CT scan does not show evidence of appendicitis. It appears your symptoms may be related to a UTI. Even thou your CT scan is normal we still want you to have a low threshold to return to the ER if you have worsening lopes, fevers, vomiting, or if you pain is still present after 36 hours. Please follow up with your doctor in 2-3 days. please cut back on your alcohol use. Prescriptions: Cephalexin Monohydrate [Keflex 500 mg Capsule] 500 mg PO Q6H 5 Days capsule Forms: Return to Work Referrals: NATALIIA PAN DO [Primary Care Provider] - 10/27/17
[2017-10-26 04:51] LABS: APPEARANCE,URINE SLIGHTLY-CLOUDY; BILIRUBIN,URINE NEGATIVE (NEGATIVE); GLUCOSE, URINE NEGATIVE (NEGATIVE); INTERNATIONAL RATION (INR) 0.96; KETONES,URINE NEGATIVE (NEGATIVE); LEUKOCYTE ESTERASE,URINE MODERATE (NEGATIVE); NITRITE,URINE POSITIVE (NEGATIVE); PROTEIN,URINE 30 mg/dL (NEGATIVE); PROTHROMBIN TIME 13.3 SEC (11.4-15.4); URINE SPECIFIC GRAVITY 1.017; UROBILINOGEN,URINE NEGATIVE mg/dL (<2.0)
[2017-10-26 04:52] LABS: ABSOLUTE BASOPHILS # (AUTO) 0.1 10^3/uL (0.0-0.2); ABSOLUTE EOSINOPHILS # (AUTO) 0.1 10^3/uL (0.0-0.6); ABSOLUTE LYMPHOCYTES (AUTO) 2.4 10^3/uL (0.5-4.7); ABSOLUTE MONOCYTES (AUTO) 0.4 10^3/uL (0.1-1.4); ABSOLUTE NEUT (AUTO) 2.2 10^3/uL (1.7-8.2); COLOR,URINE DARK YELLOW; EOSINOPHILS % (AUTO) 1.2 % (0-6); HEMATOCRIT 32.8 % (36.0-47.0); HEMOGLOBIN 10.9 g/dL (12.0-15.5); LYMPHOCYTES % (AUTO) 47.2 % (13-45); MEAN CORPUSCULAR HEMOGLOBIN 32.9 pg (27.0-33.4); MEAN CORPUSCULAR HGB CONC 33.2 g/dL (32.0-36.0); MEAN CORPUSCULAR VOLUME 99 fl (80-97); MONOCYTES % (AUTO) 7.9 % (3-13); PARTIAL THROMBOPLASTIN TIME 28.6 SEC (23.5-35.8); PLATELET COUNT 277 10^3/uL (150-450); RED BLOOD COUNT 3.31 10^6/uL (3.72-5.28); RED CELL DISTRIBUTION WIDTH 28.8 % (11.5-14.0); SEGMENTED NEUTROPHILS % (AUTO) 42.7 % (42-78); TOTAL CELLS COUNTED % (AUTO) 100 %; WHITE BLOOD COUNT 5.1 10^3/uL (4.0-10.5)
--- NOTE | 2017-10-26 04:53 | RADIOLOGY REPORT (SQ) ---
EXAM DESCRIPTION: CT ABDOMEN PELVIS WITHOUT IV CONTRAST COMPLETED DATE/TME: 10/26/2017 04:05 CLINICAL HISTORY: right flank and RLQ pain COMPARISON: 06/06/2017 TECHNIQUE: CT of the abdomen and pelvis without IV contrast. Evaluation of the solid organs and vasculature is suboptimal due to lack of IV contrast. DLP: 894.22 mGy-cm FINDINGS: Lung Bases: The visualized lung bases are clear. Coronary artery atherosclerosis. Bones: No destructive bone lesions identified. Remote left rib fractures. Abdomen: Liver: The liver has normal size and decreased density. Gallbladder: Prior cholecystectomy. Spleen, Pancreas, and Adrenal Glands: The spleen, pancreas, and adrenal glands are unremarkable. Kidneys: The kidneys have normal size and contour without evidence of hydronephrosis. No obstructing ureteral calculi. Vasculature: Aortoiliac atherosclerosis. IVC is unremarkable. Stomach: Prior gastric bypass. Other: No free intraperitoneal air. No free fluid or lymphadenopathy. Pelvis: Bladder: Urinary bladder is unremarkable. Bowel: No dilated loops of large or small bowel. Fatty infiltration of the descending colonic wall. Appendix: Normal appendix. Pelvis: IUD identified. IMPRESSION: 1. No acute inflammatory or obstructive process identified. 2. Hepatic steatosis. This exam was performed according to our departmental dose-optimization program, which includes automated exposure control, adjustment of the mA and/or kV according to patient size and/or use of iterative reconstruction technique.
[2017-10-26 05:14] LABS: PLATELET COMMENT ADEQUATE
[2017-10-26 05:15] LABS: ANISOCYTOSIS 4+
[2017-10-26 05:16] LABS: POIKILOCYTOSIS SLIGHT; TARGET CELLS SLIGHT
[2017-10-26] MEDS ORDERED: CEFTRIAXONE INJ 1000 MG VIAL IV ONE (05:17)
[2017-10-26] MEDS ORDERED: OXYCODONE-ACETAMINOPHEN 5-325 MG TABLET PO ONE (05:20)
[2017-10-26 05:27] LABS: ALANINE AMINOTRANSFERASE 73 U/L (9-52); ALBUMIN 4.1 g/dL (3.5-5.0); ALKALINE PHOSPHATASE 210 U/L (38-126); ANION GAP 18 (5-19); ASPARTATE AMINO TRANSFERASE 169 U/L (14-36); BILIRUBIN,DIRECT 0.5 mg/dL (0.0-0.4); BILIRUBIN,TOTAL 0.6 mg/dL (0.2-1.3); BLOOD UREA NITROGEN 5 mg/dL (7-20); CARBON DIOXIDE 20 mmol/L (22-30); CHLORIDE 111 mmol/L (98-107); GLUCOSE 161 mg/dL (75-110); POTASSIUM 4.3 mmol/L (3.6-5.0); TOTAL PROTEIN 7.8 g/dL (6.3-8.2)
[2017-10-26 05:48] LABS: ALCOHOL 363 mg/dL (NONE DETECTED)
[2017-10-26 07:11] VITALS: BP 113/85
== END 2017-10-26 06:15 | disposition home or self-care (01) ==
LOC: ER 03:45
DX: N39.0 Urinary tract infection, site not specified (principal); R10.9 Unspecified abdominal pain; R10.31 Right lower quadrant pain; F10.20 Alcohol dependence, uncomplicated; F17.200 Nicotine dependence, unspecified, uncomplicated; I10 Essential (primary) hypertension; E11.9 Type 2 diabetes mellitus without complications; J44.9 Chronic obstructive pulmonary disease, unspecified; Z87.11 Personal history of peptic ulcer disease; Z98.84 Bariatric surgery status; Z90.49 Acquired absence of other specified parts of digestive tract; Z88.5 Allergy status to narcotic agent; Z88.1 Allergy status to other antibiotic agents; Z88.2 Allergy status to sulfonamides; Z91.030 Bee allergy status; Z87.892 Personal history of anaphylaxis; Z91.038 Other insect allergy status
CPT/HCPCS: 99284; 96361; 96374; 96375; 36415; 87086; 80307; 84703; 85025; 85610; 85730; 80053; 81001; 87186; 74176; J1885; J0696; J7030

== ENCOUNTER 2017-12-31 00:24 | Emergency (ER) | payer SELFPAY ==
--- NOTE | 2017-12-31 01:04 | ER Document Report ---
ED GI/ - General Chief Complaint: Lower Abdominal Pain Stated Complaint: LLQ abdominal pain Time Seen by Provider: 12/31/17 01:03 Mode of Arrival: Ambulatory Information source: Patient Notes: Patient presented to the emergency room with sudden onset of lower quadrant abdominal pain. Patient denies vaginal complaints and contrary to what was written in the triage note. Typically she denies any vaginal bleeding discharge itching or any vaginal complaint. She said her pain is in the left lower quadrant of her abdomen. Patient is a known alcoholic. TRAVEL OUTSIDE OF THE [place] IN LAST 30 DAYS: No - HPI Patient complains to provider of: Abdominal pain, Pelvic pain Onset: Just prior to arrival Timing/Duration: Sudden Quality of pain: Sharp Severity at maximum: Moderate Severity in ED: Moderate Pain Level: 3 Location: LLQ Vaginal bleeding (Compared to normal period): None OB ultrasound done: No vitamins taken: No Sexual history: Active Associated symptoms: None Exacerbated by: Denies Relieved by: Denies Similar symptoms previously: No Recently seen / treated by doctor: No - Related Data Allergies/Adverse Reactions: morphine [Morphine] Allergy (Verified 08/12/17 09:20) nitrofurantoin [From Macrobid] Allergy (Verified 08/12/17 09:20) nitrofurantoin macrocrystalline [From Macrobid] Allergy (Verified 08/12/17 09:20 ) Sulfa (Sulfonamide Antibiotics) Allergy (Verified 08/12/17 09:20) sulfamethoxazole [From Bactrim] Allergy (Verified 08/12/17 09:20) trimethoprim [From Bactrim] Allergy (Verified 08/12/17 09:20) red ants Allergy (Severe, Uncoded 08/12/17 09:20) Anaphylaxis bees Allergy (Uncoded 08/12/17 09:20) Past Medical History - Social History Smoking Status: Current Every Day Smoker Family History: CAD, Malignancy - Past Medical History Cardiac Medical History: Reports: Hx Hypertension Pulmonary Medical History: Reports: Hx Asthma, Hx Bronchitis, Hx COPD Endocrine Medical History: Reports: Hx Diabetes Mellitus Type 2 Renal/ Medical History: Denies: Hx Peritoneal Dialysis GI Medical History: Reports: Hx Ulcer Musculoskeletal Medical History: Denies Hx Gout, Denies Hx Muscle Weakness, Denies Hx Musculoskeletal Deformity, Denies Hx Musculoskeletal Trauma Psychiatric Medical History: Reports: Hx Depression Past Surgical History: Reports: Hx Abdominal Surgery - GBP, Hx Section , Hx Cholecystectomy, Hx Gastric Bypass Surgery, Hx Tonsillectomy - Immunizations Immunizations up to date: Yes Hx Diphtheria, Pertussis, Tetanus Vaccination: Yes - 2017 Review of Systems - Review of Systems Constitutional: No symptoms reported EENT: No symptoms reported Cardiovascular: No symptoms reported Respiratory: No symptoms reported Gastrointestinal: Abdominal pain - Left lower quadrant abdominal pain. Genitourinary: No symptoms reported Female Genitourinary: No symptoms reported Musculoskeletal: No symptoms reported Skin: No symptoms reported Hematologic/Lymphatic: No symptoms reported Neurological/Psychological: No symptoms reported -: Yes All other systems reviewed and negative Physical Exam - Vital signs Vitals: Temp Pulse Resp BP Pulse Ox 98.9 F 92 16 134/74 H 96 12/31/17 00:31 12/31/17 00:12/31/17 00:12/31/17 00:12/31/17 00:31 Interpretation: Normal - General General appearance: Appears well, Alert In distress: None - HEENT Head: Normocephalic, Atraumatic Eyes: Normal Pupils: PERRL - Respiratory Respiratory status: No respiratory distress Chest status: Nontender Breath sounds: Normal Chest palpation: Normal - Cardiovascular Rhythm: Regular Heart sounds: Normal auscultation Murmur: No - Abdominal Inspection: Normal Distension: No distension Bowel sounds: Normal Tenderness: Tender - Left lower quadrant tenderness to palpation. Organomegaly: No organomegaly - Genitourinary Notes: Patient refused pelvic examination. - Back Back: Normal, Nontender - Extremities General upper extremity: Normal inspection, Nontender, Normal color, Normal ROM , Normal temperature General lower extremity: Normal inspection, Nontender, Normal color, Normal ROM , Normal temperature, Normal weight bearing. No: Yong's sign - Neurological Neuro grossly intact: Yes Cognition: Normal Orientation: AAOx4 Alize Coma Scale Eye Opening: Spontaneous Empire Coma Scale Verbal: Oriented Empire Coma Scale Motor: Obeys Commands Empire Coma Scale Total: 15 Speech: Normal Motor strength normal: LUE, RUE, LLE, RLE Sensory: Normal - Psychological Associated symptoms: Normal affect, Normal mood - Skin Skin Temperature: Warm Skin Moisture: Dry Skin Color: Normal Course - Vital Signs Vital signs: Temp Pulse Resp BP Pulse Ox 98.9 F 92 16 134/74 H 96 12/31/17 00:31 12/31/17 00:31 12/31/17 00:31 12/31/17 00:31 12/31/17 00:31 - Laboratory Result Diagrams: 12/31/17 01:42 12/31/17 01:42 Laboratory results interpreted by me: 12/31/17 12/31/17 12/31/17 01:42 01:42 01:42 RBC 3.47 L Hgb 10.9 L Hct 32.7 L RDW 18.5 H Lymphocytes % 47.4 H Chloride 109 H Glucose 203 H Calcium 8.2 L AST 729 H ALT 170 H Alkaline Phosphatase 156 H Lipase 314.2 H Serum Alcohol 408 H* - Diagnostic Test Radiology reviewed: Image reviewed, Reports reviewed - Transfer of Care Care transferred to following provider: Patient will be admitted by the hospitalist Dr. Heather Rain. Notes: 12/31/17 03:17 Left lower quadrant abdominal pain. Discharge - Discharge Clinical Impression: COPD with exacerbation, Diabetes mellitus type 2 in obese, Alcohol abuse, Elevated liver enzymes, Transaminitis, Acute on chronic alcoholic liver disease , Fatty liver, alcoholic Abdominal pain Qualifiers: Abdominal location: left lower quadrant Qualified Code(s): R10.32 - Left lower quadrant pain Hyperglycemia due to type 2 diabetes mellitus Qualifiers: Diabetes mellitus assisted insulin use: unspecified assisted insulin use status Qualified Code(s): E11.65 - Type 2 diabetes mellitus with hyperglycemia Alcohol intoxication Qualifiers: Complication of substance-induced condition: with unspecified complication Qualified Code(s): F10.929 - Alcohol use, unspecified with intoxication, unspecified Acute alcoholic pancreatitis Qualifiers: Acute pancreatitis complication: unspecified Qualified Code(s): K85.20 - Alcohol induced acute pancreatitis without necrosis or infection Alcohol withdrawal Qualifiers: Complication of substance-induced condition: with unspecified complication Qualified Code(s): F10.239 - Alcohol dependence with withdrawal, unspecified Condition: Stable Disposition: ADMITTED INPATIENT Admitting Provider: Hospitalist Unit Admitted: Telemetry Referrals: NATALIIA PAN DO [Primary Care Provider] - Follow up as needed
[2017-12-31] MEDS ORDERED: NORMAL SALINE 1000 ML 1,000 ML IV ONE (01:35)
[2017-12-31 01:51] LABS: ABSOLUTE EOSINOPHILS # (AUTO) 0.1 10^3/uL (0.0-0.6); ABSOLUTE MONOCYTES (AUTO) 0.3 10^3/uL (0.1-1.4); ABSOLUTE NEUT (AUTO) 1.8 10^3/uL (1.7-8.2); BASOPHILS % (AUTO) 0.7 % (0-2); HEMATOCRIT 32.7 % (36.0-47.0); HEMOGLOBIN 10.9 g/dL (12.0-15.5); LYMPHOCYTES % (AUTO) 47.4 % (13-45); MEAN CORPUSCULAR HEMOGLOBIN 31.4 pg (27.0-33.4); MEAN CORPUSCULAR HGB CONC 33.3 g/dL (32.0-36.0); MEAN CORPUSCULAR VOLUME 94 fl (80-97); MONOCYTES % (AUTO) 7.6 % (3-13); PLATELET COUNT 177 10^3/uL (150-450); RED BLOOD COUNT 3.47 10^6/uL (3.72-5.28); RED CELL DISTRIBUTION WIDTH 18.5 % (11.5-14.0); SEGMENTED NEUTROPHILS % (AUTO) 42.3 % (42-78); TOTAL CELLS COUNTED % (AUTO) 100 %; WHITE BLOOD COUNT 4.2 10^3/uL (4.0-10.5)
[2017-12-31 02:03] LABS: ALANINE AMINOTRANSFERASE 170 U/L (9-52); ALBUMIN 3.7 g/dL (3.5-5.0); ALKALINE PHOSPHATASE 156 U/L (38-126); ANION GAP 10 (5-19); ASPARTATE AMINO TRANSFERASE 729 U/L (14-36); BILIRUBIN,DIRECT 0.4 mg/dL (0.0-0.4); BILIRUBIN,TOTAL 0.6 mg/dL (0.2-1.3); BLOOD UREA NITROGEN 9 mg/dL (7-20); CALCIUM 8.2 mg/dL (8.4-10.2); CARBON DIOXIDE 25 mmol/L (22-30); CHLORIDE 109 mmol/L (98-107); GLUCOSE 203 mg/dL (75-110); LIPASE 314.2 U/L (23-300); POTASSIUM 3.7 mmol/L (3.6-5.0); SODIUM 143.9 mmol/L (137-145); TOTAL PROTEIN 7.3 g/dL (6.3-8.2)
[2017-12-31] MEDS ORDERED: METHYLPREDNISOLONE INJ 125 MG/2 ML SDV IV ONE (02:24)
[2017-12-31] MEDS ORDERED: IPRATROPIUM/ALBUTEROL 0.5-2.5 MG/3 ML AMPUL NEB ONE (02:24)
[2017-12-31] MEDS ORDERED: HYDROMORPHONE HCL INJ/PF 2 MG/ML AMPULE IV ONE (02:27)
[2017-12-31 03:17] LABS: APPEARANCE,URINE SLIGHTLY-CLOUDY; BILIRUBIN,URINE NEGATIVE (NEGATIVE); COLOR,URINE YELLOW; GLUCOSE, URINE NEGATIVE (NEGATIVE); KETONES,URINE NEGATIVE (NEGATIVE); LEUKOCYTE ESTERASE,URINE NEGATIVE (NEGATIVE); NITRITE,URINE NEGATIVE (NEGATIVE); PROTEIN,URINE NEGATIVE (NEGATIVE); URINE SPECIFIC GRAVITY 1.017; UROBILINOGEN,URINE NEGATIVE mg/dL (<2.0)
[2017-12-31] MEDS ORDERED: LORAZEPAM INJ 2 MG/1 ML VIAL IV ONE (04:02)
--- NOTE | 2017-12-31 04:28 | RADIOLOGY REPORT (SQ) ---
CLINICAL DATA: 47-year-old female, alcoholic with left lower quadrant abdominal pain TECHNICAL DATA: Axial CT imaging of the abdomen and pelvis was performed following the administration of intravenous contrast.. Sagittal and coronal reconstructed images were then performed. The CT study is performed according to ALARA (as low as reasonably achievable) or ALARA/IMAGE GENTLY, with automatic adjustment of mA and/or kV according to patient size. Comparison: Prior CT scan of the abdomen and pelvis performed on 10/26/2017 FINDINGS: Lung bases: The lung bases are clear. Liver: The liver is enlarged. The liver measures 21 cm in craniocaudal dimension. No focal hepatic abnormalities are identified. There is diffusely decreased attenuation of the liver consistent with hepatic steatosis. Spleen:The spleen is normal is size, configuration and attenuation. Gallbladder and bile duct: The gallbladder is surgically absent. There is stable dilatation of the common bile duct likely physiologic in nature following a cholecystectomy. The common bile duct measures approximately 1.3 cm in diameter. Pancreas: The pancreas is grossly normal in size and configuration. Adrenal Glands:The adrenal glands are normal in size and configuration. Kidneys:The kidneys are normal in size and configuration. There is no evidence of hydronephrosis. There is no evidence of nephrolithiasis. No definite solid or cystic renal mass lesions are identified. Stomach: There are remote postsurgical changes of the stomach consistent with prior gastric bypass surgery. There is no definite hiatal hernia. Bowel:The bowel gas pattern is non specific and non obstructive. Appendix: There is no CT evidence to suggest acute appendicitis. Free air:There is no evidence of free air. Free fluid: There is no evidence of free fluid. Vasculature: The aorta is normal in caliber and contour. There are mild atherosclerotic calcifications along the abdominal aorta and iliac arteries. The inferior vena cava is grossly unremarkable. Lymphadenopathy: No pathologic lymphadenopathy is identified. Bladder: The bladder is well distended and smooth in contour. Reproductive: The uterus is grossly within normal limits. An intrauterine device is present in satisfactory position within the endometrial canal. Bones: No acute osseous abnormalities are identified. There are old left-sided rib fractures. There are mild chronic degenerative changes of the thoracolumbar spine. Soft tissues: No focal soft tissue abnormalities are identified. IMPRESSION: 1. No evidence of acute intra-abdominal or intrapelvic pathology. Findings are similar when compared to the prior study. 2. Hepatomegaly and diffuse fatty infiltration of the liver. 3. Prior gastric bypass surgery. 4. Degenerative changes of the skeletal and vascular structures and old left-sided rib fractures. 5. Remote cholecystectomy. 6. IUD in stable position.
[2017-12-31 04:58] VITALS: BP 145/88
--- NOTE | 2017-12-31 05:42 | Progress Note ---
Provider Note Provider Note: Patient has been just sign out to me by , as I was looking at the patient's information in the EHR ED nurse called me and informed me that the patient has sober up and is at the bedside, they do not want to stay in the hospital would like to leave left AMA. Apparently they were not aware that she will be admitted.
--- NOTE | 2017-12-31 07:32 | RADIOLOGY REPORT (SQ) ---
EXAM DESCRIPTION: CHEST SINGLE VIEW COMPLETED DATE/TIME: 12/31/2017 2:58 am REASON FOR STUDY: SOB COMPARISON: Two-view chest 08/12/2017 CT chest 06/16/2017 EXAM PARAMETERS: NUMBER OF VIEWS: One view. TECHNIQUE: Single frontal radiographic view of the chest acquired. RADIATION DOSE: NA LIMITATIONS: None. FINDINGS: LUNGS AND PLEURA: No opacities, masses or pneumothorax. No pleural effusion. MEDIASTINUM AND HILAR STRUCTURES: No masses. Contour normal. HEART AND VASCULAR STRUCTURES: Heart normal in size. Normal vasculature. BONES: No acute findings. HARDWARE: None in the chest. OTHER: No other significant finding. IMPRESSION: NO ACUTE RADIOGRAPHIC FINDING IN THE CHEST. TECHNICAL DOCUMENTATION: JOB ID: [id number] [employer]- All Rights Reserved Reading location - IP/workstation name: [email or web address]
== END 2017-12-31 04:57 | disposition left against medical advice (07) ==
LOC: ER 00:24 → UNDOADMIN 04:44 → EH 04:44 → ER 04:57
DX: J44.1 Chronic obstructive pulmonary disease with (acute) exacerbation (principal); E66.9 Obesity, unspecified; R10.32 Left lower quadrant pain; K70.0 Alcoholic fatty liver; F10.20 Alcohol dependence, uncomplicated; R74.8 Abnormal levels of other serum enzymes; E11.9 Type 2 diabetes mellitus without complications; I10 Essential (primary) hypertension; F17.200 Nicotine dependence, unspecified, uncomplicated; Z88.3 Allergy status to other anti-infective agents; Z88.6 Allergy status to analgesic agent; Z88.2 Allergy status to sulfonamides
CPT/HCPCS: 94640; 99285; 96361; 96374; 96375; 36415; 80307; 83690; 85025; 81025; 80053; 81001; 83880; 71045; 74177; J2930; J1170; J2060; J7030; J7620

== ENCOUNTER 2018-01-10 11:25 | Emergency (ER) | payer SELFPAY ==
[2018-01-10] MEDS ORDERED: NORMAL SALINE 1000 ML 1,000 ML IV ONE ×3 (11:39→18:17)
--- NOTE | 2018-01-10 11:39 | ER Document Report ---
ED Medical Screen (RME) - General Chief Complaint: Abdominal Pain Stated Complaint: ABDOMINAL PAIN Time Seen by Provider: 01/10/18 11:36 Notes: Patient is a 47-year-old female that presents to the emergency department for chief complaint of abdominal pain, history of ventral hernia. ROS: Unless otherwise stated in this report the patient's positive and negative responses for review of systems for constitutional, eyes, ENT, cardiovascular, respiratory, gastrointestinal, neurological, genitourinary, musculoskeletal, and integumentary systems and related systems to the presenting problem are either as stated in the HPI or were not pertinent or were negative for the symptoms and/or complaints related to the presenting medical problem. PHYSICAL EXAMINATION: Vital signs reviewed. GENERAL: Well-appearing, well-nourished and in no acute distress. HEAD: Atraumatic, normocephalic. EYES: Pupils equal round extraocular movements intact, conjunctiva are normal. ENT: Nares patent NECK: Normal range of motion CV: Heart regular rate and rhythm LUNGS: No respiratory distress Musculoskeletal: Normal range of motion NEUROLOGICAL: Normal speech PSYCH: Normal mood, normal affect. MDM: Patient seen and examined for rapid initial assessment. Vital signs reviewed. A comprehensive ED assessment and evaluation of the patient, analysis of test results and completion of the medical decision making process will be conducted by additional ED providers. *Note is created using voice recognition software and may contain spelling, syntax or grammatical errors. TRAVEL OUTSIDE OF THE [place] IN LAST 30 DAYS: No - Related Data Allergies/Adverse Reactions: morphine [Morphine] Allergy (Verified 08/12/17 09:20) nitrofurantoin [From Macrobid] Allergy (Verified 08/12/17 09:20) nitrofurantoin macrocrystalline [From Macrobid] Allergy (Verified 08/12/17 09:20 ) Sulfa (Sulfonamide Antibiotics) Allergy (Verified 08/12/17 09:20) sulfamethoxazole [From Bactrim] Allergy (Verified 08/12/17 09:20) trimethoprim [From Bactrim] Allergy (Verified 08/12/17 09:20) red ants Allergy (Severe, Uncoded 08/12/17 09:20) Anaphylaxis bees Allergy (Uncoded 08/12/17 09:20) Past Medical History - Past Medical History Cardiac Medical History: Reports: Hx Hypertension Pulmonary Medical History: Reports: Hx Asthma, Hx Bronchitis, Hx COPD Endocrine Medical History: Reports: Hx Diabetes Mellitus Type 2 Renal/ Medical History: Denies: Hx Peritoneal Dialysis GI Medical History: Reports: Hx Ulcer Musculoskeltal Medical History: Denies Hx Gout, Denies Hx Muscle Weakness, Denies Hx Musculoskeletal Deformity, Denies Hx Musculoskeletal Trauma Psychiatric Medical History: Reports: Hx Depression Past Surgical History: Reports: Hx Abdominal Surgery - GBP, Hx Section , Hx Cholecystectomy, Hx Gastric Bypass Surgery, Hx Tonsillectomy - Immunizations Immunizations up to date: Yes Hx Diphtheria, Pertussis, Tetanus Vaccination: Yes - 2016 History of Influenza Vaccine for 12/2016 - 05/2017 Season: Yes Influenza Administration Date for 12/2016 - 05/2017 Season: 12/14/16 Physical Exam - Vital signs Vitals: Temp Pulse Resp BP Pulse Ox 98.9 F 112 H 20 129/80 H 97 01/10/18 11:27 01/10/18 11:27 01/10/18 11:27 01/10/18 11:27 01/10/18 11:27 Course - Vital Signs Vital signs: Temp Pulse Resp BP Pulse Ox 98.9 F 112 H 20 129/80 H 97 01/10/18 11:27 01/10/18 11:27 01/10/18 11:27 01/10/18 11:27 01/10/18 11:27 Doctor's Discharge - Discharge Referrals: NATALIIA PAN DO [Primary Care Provider] - Follow up as needed
[2018-01-10] MEDS ORDERED: ONDANSETRON HCL INJ/PF 4 MG/2 ML SDV IV ONE (11:41)
[2018-01-10 12:40] LABS: ABSOLUTE BASOPHILS # (AUTO) 0.1 10^3/uL (0.0-0.2); ABSOLUTE MONOCYTES (AUTO) 0.5 10^3/uL (0.1-1.4); ABSOLUTE NEUT (AUTO) 5.6 10^3/uL (1.7-8.2); BASOPHILS % (AUTO) 0.9 % (0-2); EOSINOPHILS % (AUTO) 0.2 % (0-6); HEMATOCRIT 30.1 % (36.0-47.0); HEMOGLOBIN 10.2 g/dL (12.0-15.5); LYMPHOCYTES % (AUTO) 13.7 % (13-45); MEAN CORPUSCULAR HEMOGLOBIN 31.7 pg (27.0-33.4); MEAN CORPUSCULAR HGB CONC 33.8 g/dL (32.0-36.0); MEAN CORPUSCULAR VOLUME 94 fl (80-97); MONOCYTES % (AUTO) 6.5 % (3-13); RED BLOOD COUNT 3.21 10^6/uL (3.72-5.28); RED CELL DISTRIBUTION WIDTH 21.7 % (11.5-14.0); SEGMENTED NEUTROPHILS % (AUTO) 78.7 % (42-78); TOTAL CELLS COUNTED % (AUTO) 100 %; WHITE BLOOD COUNT 7.1 10^3/uL (4.0-10.5)
[2018-01-10 12:53] LABS: ALANINE AMINOTRANSFERASE 212 U/L (9-52); ALBUMIN 4.1 g/dL (3.5-5.0); ALKALINE PHOSPHATASE 342 U/L (38-126); ANION GAP 19 (5-19); ASPARTATE AMINO TRANSFERASE 397 U/L (14-36); BILIRUBIN,TOTAL 9.6 mg/dL (0.2-1.3); BLOOD UREA NITROGEN 4 mg/dL (7-20); CALCIUM 9.4 mg/dL (8.4-10.2); CARBON DIOXIDE 25 mmol/L (22-30); CHLORIDE 87 mmol/L (98-107); GLUCOSE 289 mg/dL (75-110); POTASSIUM 3.4 mmol/L (3.6-5.0); SODIUM 130.6 mmol/L (137-145); TOTAL PROTEIN 7.8 g/dL (6.3-8.2)
[2018-01-10 12:56] LABS: PLATELET COUNT 96 10^3/uL (150-450)
[2018-01-10 13:58] LABS: APPEARANCE,URINE SLIGHTLY-CLOUDY; BILIRUBIN,URINE NEGATIVE (NEGATIVE); COLOR,URINE AMBER; GLUCOSE, URINE 50 mg/dL (NEGATIVE); KETONES,URINE NEGATIVE (NEGATIVE); LEUKOCYTE ESTERASE,URINE TRACE (NEGATIVE); NITRITE,URINE POSITIVE (NEGATIVE); PROTEIN,URINE NEGATIVE (NEGATIVE); URINE SPECIFIC GRAVITY 1.006
--- NOTE | 2018-01-10 14:07 | ER Document Report ---
ED General - General TRAVEL OUTSIDE OF THE [place] IN LAST 30 DAYS: No <SILVERIO HERNANDEZ - Last Filed: 01/10/18 18:51> <CARLOS JARA - Last Filed: 01/10/18 19:36> - General Chief Complaint: Abdominal Pain Stated Complaint: ABDOMINAL PAIN Time Seen by Provider: 01/10/18 11:36 Notes: Patient is a 47-year-old female presenting to the emergency department complaining of cough and congestion times 3 days. Patient also admits to a fever of 102.8 this morning, states she took Tylenol for same. Patient states over the last 3 days she has had 6 episodes each day of nonbloody nonbilious vomiting and 6 episodes each day of nonbloody diarrhea. Patient states she has generalized abdominal pain periumbilical and right lower quadrant. Patient is also complaining of orange/yellow vaginal discharge that started yesterday. Patient denies any itch or odor to the discharge. Patient also complains of bilateral eye discharge which also started yesterday. Patient denies foreign body sensation BL eyes. Patient does note that she has noticed bruising to her left upper arm more so over the last couple of days. Patient denies trauma or injury to that area. Patient denies chest pain, shortness of breath. Past medical history: Diabetes, COPD, alcohol abuse, depression, ventral hernia Medications: Metformin, Lasix, Lexapro, Percocet, albuterol, BuSpar, trazodone Allergies: Morphine, Macrobid, sulfa Surgical history: Cholecystectomy, gastric bypass Patient does admit to every day EtOH use, every day cigarette smoking, denies illicit drug use. (SILVERIO HERNANDEZ) - Related Data Allergies/Adverse Reactions: morphine [Morphine] Allergy (Verified 08/12/17 09:20) nitrofurantoin [From Macrobid] Allergy (Verified 08/12/17 09:20) nitrofurantoin macrocrystalline [From Macrobid] Allergy (Verified 08/12/17 09:20 ) Sulfa (Sulfonamide Antibiotics) Allergy (Verified 08/12/17 09:20) sulfamethoxazole [From Bactrim] Allergy (Verified 08/12/17 09:20) trimethoprim [From Bactrim] Allergy (Verified 08/12/17 09:20) red ants Allergy (Severe, Uncoded 08/12/17 09:20) Anaphylaxis bees Allergy (Uncoded 08/12/17 09:20) Past Medical History - General Information source: Patient - Social History Smoking Status: Current Every Day Smoker Frequency of alcohol use: Heavy Drug Abuse: None Lives with: Family Family History: CAD, Malignancy Patient has suicidal ideation: No Patient has homicidal ideation: No - Past Medical History Cardiac Medical History: Reports: Hx Hypertension Pulmonary Medical History: Reports: Hx Asthma, Hx Bronchitis, Hx COPD Endocrine Medical History: Reports: Hx Diabetes Mellitus Type 2 Renal/ Medical History: Denies: Hx Peritoneal Dialysis GI Medical History: Reports: Hx Ulcer Musculoskeletal Medical History: Denies Hx Gout, Denies Hx Muscle Weakness, Denies Hx Musculoskeletal Deformity, Denies Hx Musculoskeletal Trauma Psychiatric Medical History: Reports: Hx Depression Past Surgical History: Reports: Hx Abdominal Surgery - GBP, Hx Section , Hx Cholecystectomy, Hx Gastric Bypass Surgery, Hx Tonsillectomy - Immunizations Immunizations up to date: Yes Hx Diphtheria, Pertussis, Tetanus Vaccination: Yes - 2016 <SILVERIO HERNANDEZ - Last Filed: 01/10/18 18:51> Review of Systems - Review of Systems Constitutional: See HPI EENT: See HPI Cardiovascular: See HPI Respiratory: See HPI Gastrointestinal: See HPI Genitourinary: See HPI Female Genitourinary: See HPI Musculoskeletal: See HPI Skin: See HPI Hematologic/Lymphatic: See HPI Neurological/Psychological: See HPI <SILVERIO HERNANDEZ - Last Filed: 01/10/18 18:51> Physical Exam <SILVERIO HERNANDEZ - Last Filed: 01/10/18 18:51> <CARLOS JARA - Last Filed: 01/10/18 19:36> - Vital signs Vitals: Temp Pulse Resp BP Pulse Ox 98.9 F 112 H 20 129/80 H 97 01/10/18 11:27 01/10/18 11:27 01/10/18 11:27 01/10/18 11:27 01/10/18 11:27 - Notes Notes: GENERAL: Alert, interacts well. No acute distress. HEAD: Normocephalic, atraumatic. EYES: Pupils equal, round, and reactive to light. Extraocular movements intact. Scleral icterus with mucoid discharge bilateral medial canthi and matted eyelashes. ENT: Oral mucosa moist, tongue midline. Nares patent, no swelling to turbinates bilaterally, TM's intact, not erythematous nonbulging, no frontal sinus, or maxillary sinus tenderness upon palpation. NECK: Full range of motion. Supple. Trachea midline. No lymphadenopathy appreciated LUNGS: no rales, or rhonchi. No respiratory distress. Slight expiratory wheeze bilateral bases, cleared with a deep cough. HEART: Regular rate and rhythm. No murmur ABDOMEN: Obese, soft, Non-distended. Bowel sounds present in all 4 quadrants. Generalized pain all 4 quadrants and periumbilical. EXTREMITIES: Moves all 4 extremities spontaneously. No edema, normal radial and dorsalis pedis pulses bilaterally. No cyanosis. BACK: no cervical, thoracic, lumbar midline tenderness. No saddle anesthesia, normal distal neurovascular exam. NEUROLOGICAL: Alert and oriented x3. Normal speech. cranial nerves II through XII grossly intact. PSYCH: Normal affect, normal mood. SKIN: Warm, dry, normal turgor. Bruising noted at different stages of healing to her left upper arm and left distal wrist, no bony tenderness upon palpation (SILVERIO HERNANDEZ) Course - Laboratory Result Diagrams: 01/10/18 12:19 01/10/18 12:19 <SILVERIO HERNANDEZ - Last Filed: 01/10/18 18:51> - Laboratory Result Diagrams: 01/10/18 12:19 01/10/18 12:19 <CARLOS JARA - Last Filed: 01/10/18 19:36> - Re-evaluation Re-evalutation: Discussed case with Dr. Kimo Medina who reviewed labs and CT, agrees with need for transfer to a facility with Gastroenterology. Discussed case with Dr. Modesto Valero at [facility] who stated he would accept the pt. In talking to the transfer center it was going to be 24 hours for a bed. Discussed this with the pt. who then requested to be transferred to [facility]. 01/10/18 16:[address] Bean (attending Dr. Carrera) agrees with patient diagnosis and transfer to [facility]. Pt. intermittently stating that she had generalized abdominal pain and that she wants to smoke a cigarette. Nicotine patch ordered. pt. then stated she was going to "go into DTs" if we did not give her anything for her anxiety. HR was 110 at that time and Pt. was obviously agitated in room. 1 mg PO ativan ordered. 01/10/18 17:46 Walked by the Pt. room and she had her eyes closed, lying in bed. Looked to be in NAD, potentially sleeping. HR 107 BP 108/61 RR 20 97% RA. Discussed Tachycardia with Dr. Kimo Medina who recommends more IV fluids, 250 ml/hr. Continue to monitor the Pt. for s/s or alcohol withdrawal. Again marked by the patient room and she looks to be sleeping, no apparent distress. 01/10/18 18:46 Pt. care and report were transferred to Carlos Jara PA-C at shift change. Pt. continues to appear to be in no distress, sleeping. VS: HR 96 RR 20 SPO2 93% RA BP 108/61 (SILVERIO HERNANDEZ) 01/10/18 19:35 Patient evaluated at bedside. Patient is alert, conversational, and has no current complaints. 02 Saturation is 95% on room air, blood pressure 110 systolic, heart rate 100. Stable for transport. (CARLOS JARA) - Vital Signs Vital signs: Temp Pulse Resp BP Pulse Ox 98.7 F 112 H 18 110/65 94 01/10/18 16:19 01/10/18 11:27 01/10/18 19:30 01/10/18 19:30 01/10/18 19:30 - Laboratory Laboratory results interpreted by me: 01/10/18 01/10/18 01/10/18 12:19 12:19 12:19 RBC 3.21 L Hgb 10.2 L Hct 30.1 L RDW 21.7 H Plt Count 96 L Seg Neutrophils % 78.7 H Sodium 130.6 L Potassium 3.4 L Chloride 87 L BUN 4 L Glucose 289 H Lactic Acid 2.8 H Total Bilirubin 9.6 H Direct Bilirubin 7.0 H AST 397 H ALT 212 H Alkaline Phosphatase 342 H Creatine Kinase Lipase Urine Glucose (UA) Urine Blood Urine Nitrite Urine Urobilinogen Ur Leukocyte Esterase 01/10/18 01/10/18 01/10/18 12:19 12:19 13:37 RBC Hgb Hct RDW Plt Count Seg Neutrophils % Sodium Potassium Chloride BUN Glucose Lactic Acid Total Bilirubin Direct Bilirubin AST ALT Alkaline Phosphatase Creatine Kinase 220 H Lipase 713.1 H Urine Glucose (UA) 50 H Urine Blood SMALL H Urine Nitrite POSITIVE H Urine Urobilinogen 4.0 H Ur Leukocyte Esterase TRACE H Discharge - Discharge Admitting Provider: Hospitalist - Dr. Bean (attending Dr. Carrera) Unit Admitted: Medical Floor <DIANECARMENLIORMILLICENTDUC - Last Filed: 01/10/18 18:51> <CARLOS JARA - Last Filed: 01/10/18 19:36> - Discharge Clinical Impression: Hyperbilirubinemia Pancreatitis Qualifiers: Chronicity: acute Pancreatitis type: alcohol induced Acute pancreatitis complication: unspecified Qualified Code(s): K85.20 - Alcohol induced acute pancreatitis without necrosis or infection Condition: Stable Disposition: [facility] Referrals: NATALIIA PAN DO [Primary Care Provider] - Follow up as needed
[2018-01-10 14:21] LABS: T.VAGINALIS (WET MOUNT) NO TRICHOMONAS SEEN; WBCS (WET MOUNT) NO WBCS SEEN; YEAST (WET MOUNT) NO YEAST SEEN
[2018-01-10 14:28] LABS: INTERNATIONAL RATION (INR) 1.04; PARTIAL THROMBOPLASTIN TIME 30.9 SEC (23.5-35.8); PROTHROMBIN TIME 14.1 SEC (11.4-15.4)
[2018-01-10] MEDS ORDERED: CEFTRIAXONE 1 GM/D5W RTU 1 GM/50 ML RTUPB IV ONE (14:43)
--- NOTE | 2018-01-10 15:01 | RADIOLOGY REPORT (SQ) ---
EXAM DESCRIPTION: CT ABD/PELVIS WITH IV ORAL COMPLETED DATE/TIME: 01/10/2018 2:45 pm REASON FOR STUDY: Diffuse abdominal pain, ventral hernia COMPARISON: 12/31/2017 TECHNIQUE: CT scan of the abdomen and pelvis performed using helical scanning technique with dynamic intravenous contrast injection. Enteric contrast was administered. Images reviewed with lung, soft tissue, and bone windows. Reconstructed coronal and sagittal MPR images reviewed. Delayed images for evaluation of the urinary system also acquired. All images stored on PACS. All CT scanners at this facility use dose modulation, iterative reconstruction, and/or weight based d osing when appropriate to reduce radiation dose to as low as reasonably achievable (ALARA). [facility]: Dose Right [facility]: CareDose [facility]: Dose Right [facility]: Teradose 4D [facility]: PhoneAndPhone CONTRAST TYPE AND DOSE: 100 mL IV of Omnipaque 350- low osmolar. RENAL FUNCTION: BUN 4 creatinine 0.55 RADIATION DOSE: . LIMITATIONS: None. FINDINGS: LOWER CHEST: No significant findings. No nodules or infiltrates. LIVER: Unchanged hepatomegaly with decreased attenuation consistent with hepatic steatosis. No focal hepatic mass. SPLEEN: Normal size. No focal lesions. PANCREAS: No masses. No significant calcifications. No adjacent inflammation or peripancreatic fluid collections. Pancreatic duct not dilated. GALLBLADDER: Surgically absent. ADRENAL GLANDS: No significant masses or asymmetry. RIGHT KIDNEY AND URETER: No solid masses. No significant calcifications. No hydronephrosis or hyd roureter. LEFT KIDNEY AND URETER: No solid masses. No significant calcifications. No hydronephrosis or hydr oureter. AORTA AND VESSELS: No aneurysm. Mild calcified noncalcified plaque of the visualized aortoiliac syst em. No dissection. Renal arteries, SMA, celiac without stenosis. RETROPERITONEUM: No retroperitoneal adenopathy, hemorrhage or masses. BOWEL AND PERITONEAL CAVITY: Postsurgical changes of the stomach and small bowel consistent with bhakti ent's history of gastric bypass. No dilated loops of bowel. No free fluid or free air within the ab domen. APPENDIX: Not visualized. No pericolonic fat stranding. PELVIS: No mass. No free fluid. Urinary bladder has an unremarkable CT appearance. IUD within the uterus. ABDOMINAL WALL: No masses. Small fat containing umbilical hernia. Small fat containing supraumbilic al hernia. BONES: Degenerative disc disease of the lumbar spine. No sinister bone lesions. OTHER: No other significant finding. IMPRESSION: 1. No acute findings within the abdomen or pelvis. 2. Small supraumbilical and umbilical fat containing hernias. 3. Unchanged chronic additional findings, as detailed above. TECHNICAL DOCUMENTATION: JOB ID: [id number] Quality ID # [id number]: Final reports with documentation of one or more dose reduction techniques (e.g., Au tomated exposure control, adjustment of the mA and/or kV according to patient size, use of iterative reconstruction technique) 2010 [employer]- All Rights Reserved Reading location - IP/workstation name: [email or web address]
[2018-01-10] MEDS ORDERED: NICOTINE 21 MG/24 HR PATCH.TD24 TD ONE (15:29)
[2018-01-10] MEDS ORDERED: LORAZEPAM 1 MG TABLET PO ONE (15:36)
[2018-01-10 15:52] LABS: CHLAM PCR NOT DETECTED (NOT DETECT); GON PCR NOT DETECTED (NOT DETECT)
--- NOTE | 2018-01-10 16:05 | EKG REPORT ---
SEVERITY:- OTHERWISE NORMAL ECG - SINUS TACHYCARDIA : Confirmed by: Chloe Marroquin 10-Jan-2018 16:05:12
[2018-01-10] MEDS ORDERED: KETOROLAC TROMETHAMINE INJ/PF 30 MG/1 ML SDV IV ONE (17:35)
[2018-01-10] MEDS ORDERED: THIAMINE HCL 100 MG, FOLIC ACID 1 MG in NORMAL SALINE 250 ML IV ONE (18:16)
[2018-01-10] MEDS ORDERED: THIAMINE HCL INJ 200 MG/2 ML VIAL ONE (18:40)
[2018-01-10] MEDS ORDERED: FOLIC ACID INJ 5 MG/1 ML 10 ML VIAL ONE (18:41)
[2018-01-10 19:32] VITALS: BP 110/65
== END 2018-01-10 19:30 | disposition short-term general hospital (02) ==
LOC: ER 11:25
DX: K85.20 Alcohol induced acute pancreatitis without necrosis or infection (principal); E80.6 Other disorders of bilirubin metabolism; F41.9 Anxiety disorder, unspecified; R05 Cough; R50.9 Fever, unspecified; R19.7 Diarrhea, unspecified; R11.10 Vomiting, unspecified; R10.84 Generalized abdominal pain; H57.89 Other specified disorders of eye and adnexa; N89.8 Other specified noninflammatory disorders of vagina; S40.022A Contusion of left upper arm, initial encounter; S60.212A Contusion of left wrist, initial encounter; X58.XXXA Exposure to other specified factors, initial encounter; E11.9 Type 2 diabetes mellitus without complications; J44.9 Chronic obstructive pulmonary disease, unspecified; F17.210 Nicotine dependence, cigarettes, uncomplicated; F32.9 Major depressive disorder, single episode, unspecified; Z79.84 Long term (current) use of oral hypoglycemic drugs; Z79.899 Other long term (current) drug therapy; Z79.891 Long term (current) use of opiate analgesic; Z98.84 Bariatric surgery status; Z90.49 Acquired absence of other specified parts of digestive tract; Z88.5 Allergy status to narcotic agent; Z88.1 Allergy status to other antibiotic agents; Z88.2 Allergy status to sulfonamides; Z91.030 Bee allergy status; Z87.892 Personal history of anaphylaxis; Z91.038 Other insect allergy status
CPT/HCPCS: 93005; 99285; 96361; 96375; 96365; 96367; 36415; 87040; 87086; 87210; 82550; 83690; 84703; 85025; 85610; 85730; 87088; 80053; 81001; 87186; 87491; 87591; 83605; 74177; 93010; J3490; J1885; J3411; J2405; J7030; J7050; J0696

== ENCOUNTER 2018-06-04 16:01 | Emergency (ER) | payer SELFPAY ==
--- NOTE | 2018-06-04 17:49 | ER Document Report ---
ED Medical Screen (RME) - General Chief Complaint: Abdominal Pain Stated Complaint: COUGH,CONGESTION,LEG/FEET PAIN, FATIGUE Time Seen by Provider: 06/04/18 17:40 Primary Care Provider: NATALIIA PAN DO [Primary Care Provider] - Follow up as needed Notes: 48-year-old heavy smoking alcoholic comes to the emergency room with a long written list of issues. She has cough and congestion with white phlegm. She has cystic areas developing around her vaginal region. She has a rash in her lower abdominal pannus region. She has black mold on a wall in her house and thinks that is causing her problems. I have greeted and performed a rapid initial assessment of this patient. A comprehensive ED assessment and evaluation of the patient, analysis of test results and completion of the medical decision making process will be conducted by additional ED providers. TRAVEL OUTSIDE OF THE [place] IN LAST 30 DAYS: No - Related Data Allergies/Adverse Reactions: morphine [Morphine] Allergy (Verified 06/04/18 16:13) nitrofurantoin [From Macrobid] Allergy (Verified 06/04/18 16:13) nitrofurantoin macrocrystalline [From Macrobid] Allergy (Verified 06/04/18 16:13) Sulfa (Sulfonamide Antibiotics) Allergy (Verified 06/04/18 16:13) sulfamethoxazole [From Bactrim] Allergy (Verified 06/04/18 16:13) trimethoprim [From Bactrim] Allergy (Verified 06/04/18 16:13) red ants Allergy (Severe, Uncoded 06/04/18 16:13) Anaphylaxis bees Allergy (Uncoded 06/04/18 16:13) Past Medical History - Social History Chew tobacco use (# tins/day): No Frequency of alcohol use: None Drug Abuse: None - Past Medical History Cardiac Medical History: Reports: Hx Hypertension Pulmonary Medical History: Reports: Hx Asthma, Hx Bronchitis, Hx COPD Endocrine Medical History: Reports: Hx Diabetes Mellitus Type 2 Renal/ Medical History: Denies: Hx Peritoneal Dialysis GI Medical History: Reports: Hx Ulcer Musculoskeltal Medical History: Denies Hx Gout, Denies Hx Muscle Weakness, Denies Hx Musculoskeletal Deformity, Denies Hx Musculoskeletal Trauma Psychiatric Medical History: Reports: Hx Depression Past Surgical History: Reports: Hx Abdominal Surgery - GBP, Hx Section, Hx Cholecystectomy, Hx Gastric Bypass Surgery, Hx Tonsillectomy - Immunizations Immunizations up to date: Yes Hx Diphtheria, Pertussis, Tetanus Vaccination: Yes - 2017 History of Influenza Vaccine for 12/2016 - 05/2017 Season: Yes Influenza Administration Date for 12/2016 - 05/2017 Season: 12/14/16 Physical Exam - Vital signs Vitals: Temp Pulse Resp BP Pulse Ox 99.0 F 106 H 16 120/64 98 06/04/18 16:16 06/04/18 16:16 06/04/18 16:16 06/04/18 16:16 06/04/18 16:16 Course - Vital Signs Vital signs: Temp Pulse Resp BP Pulse Ox 99.0 F 106 H 16 120/64 98 06/04/18 16:16 06/04/18 16:16 06/04/18 16:16 06/04/18 16:16 06/04/18 16:16 Doctor's Discharge - Discharge Referrals: NATALIIA PAN DO [Primary Care Provider] - Follow up as needed
--- NOTE | 2018-06-04 20:45 | ER Document Report ---
ED General - General Chief Complaint: Abdominal Pain Stated Complaint: COUGH,CONGESTION,LEG/FEET PAIN, FATIGUE Time Seen by Provider: 06/04/18 17:40 Primary Care Provider: NATALIIA PAN DO [NO LOCAL MD] - Follow up as needed Mode of Arrival: Ambulatory Information source: Patient TRAVEL OUTSIDE OF THE [place] IN LAST 30 DAYS: No - HPI Patient complains to provider of: Productive cough, skin rash, suprapubic skin lesions, chronic alcoholism Onset: Other - 1 month Severity: Mild Associated symptoms: Productive cough Notes: Patient is a 48-year-old female presenting to the emergency room today for several complaints, the first being a cough productive of whitish colored phlegm that has been present for the past month, she also has a skin rash in the pannus of her abdomen, reports some abscess-like lesions in her suprapubic space, she also reports chronic alcoholism and a desire to stop drinking alcohol, she denies any fevers, no nausea or vomiting, no abdominal pain, reports she drinks a 12 pack of beer on a daily basis - Related Data Allergies/Adverse Reactions: morphine [Morphine] Allergy (Verified 06/04/18 16:13) nitrofurantoin [From Macrobid] Allergy (Verified 06/04/18 16:13) nitrofurantoin macrocrystalline [From Macrobid] Allergy (Verified 06/04/18 16:13) Sulfa (Sulfonamide Antibiotics) Allergy (Verified 06/04/18 16:13) sulfamethoxazole [From Bactrim] Allergy (Verified 06/04/18 16:13) trimethoprim [From Bactrim] Allergy (Verified 06/04/18 16:13) red ants Allergy (Severe, Uncoded 06/04/18 16:13) Anaphylaxis bees Allergy (Uncoded 06/04/18 16:13) Past Medical History - General Information source: Patient - Social History Smoking Status: Current Every Day Smoker Chew tobacco use (# tins/day): No Frequency of alcohol use: None Drug Abuse: None Family History: CAD, Malignancy Patient has suicidal ideation: No Patient has homicidal ideation: No - Past Medical History Cardiac Medical History: Reports: Hx Hypertension Pulmonary Medical History: Reports: Hx Asthma, Hx Bronchitis, Hx COPD Endocrine Medical History: Reports: Hx Diabetes Mellitus Type 2 Renal/ Medical History: Denies: Hx Peritoneal Dialysis GI Medical History: Reports: Hx Ulcer Musculoskeletal Medical History: Denies Hx Gout, Denies Hx Muscle Weakness, Denies Hx Musculoskeletal Deformity, Denies Hx Musculoskeletal Trauma Psychiatric Medical History: Reports: Hx Depression Past Surgical History: Reports: Hx Abdominal Surgery - GBP, Hx Section, Hx Cholecystectomy, Hx Gastric Bypass Surgery, Hx Tonsillectomy - Immunizations Immunizations up to date: Yes Hx Diphtheria, Pertussis, Tetanus Vaccination: Yes - 2017 Review of Systems - Review of Systems Constitutional: No symptoms reported EENT: No symptoms reported Cardiovascular: No symptoms reported Respiratory: See HPI Gastrointestinal: No symptoms reported Genitourinary: No symptoms reported Female Genitourinary: No symptoms reported Musculoskeletal: No symptoms reported Skin: See HPI Hematologic/Lymphatic: No symptoms reported Neurological/Psychological: No symptoms reported -: Yes All other systems reviewed and negative Physical Exam - Vital signs Vitals: Temp Pulse Resp BP Pulse Ox 99.0 F 106 H 16 120/64 98 06/04/18 16:16 06/04/18 16:16 06/04/18 16:16 06/04/18 16:16 06/04/18 16:16 Interpretation: Normal - General General appearance: Appears well, Alert - HEENT Head: Normocephalic, Atraumatic Eyes: Normal Pupils: PERRL - Respiratory Respiratory status: No respiratory distress Chest status: Nontender Breath sounds: Normal Chest palpation: Normal - Cardiovascular Rhythm: Regular Heart sounds: Normal auscultation Murmur: No - Abdominal Inspection: Other - Erythematous excoriated skin in the pannus of her abdomen Distension: No distension Bowel sounds: Normal Tenderness: Nontender Organomegaly: No organomegaly - Genitourinary External exam: Lesions - Multiple small erythematous raised lesions consistent with folliculitis in the suprapubic space - Back Back: Normal, Nontender - Extremities General upper extremity: Normal inspection, Nontender, Normal color, Normal ROM, Normal temperature General lower extremity: Normal inspection, Nontender, Normal color, Normal ROM, Normal temperature, Normal weight bearing. No: Yong's sign - Neurological Neuro grossly intact: Yes Cognition: Normal Orientation: AAOx4 [place] Coma Scale Eye Opening: Spontaneous [place] Coma Scale Verbal: Oriented [place] Coma Scale Motor: Obeys Commands [place] Coma Scale Total: 15 Speech: Normal Motor strength normal: LUE, RUE, LLE, RLE Sensory: Normal - Psychological Associated symptoms: Normal affect, Normal mood - Skin Skin Temperature: Warm Skin Moisture: Dry Skin Color: Normal Course - Re-evaluation Re-evalutation: 06/04/18 22:29 I offered to complete labs on patient today as she was worried about her chronic alcoholism and possible cirrhosis, she reports some depression but denies any suicidal ideation, however she declined blood work at this point in time stating she will follow-up at the [facility] as an outpatient, she was provided with prescriptions for Librium to assist in detoxing from alcohol, nystatin for candidiasis to the skin under the pannus, Keflex for folliculitis, and Tessalon Perles for symptomatic control of her cough she was provided with instructions for follow-up with both primary care and detox/rehab mental health services, patient was advised to return if symptoms worsen or understanding and agreement with this plan 06/04/18 22:31 - Vital Signs Vital signs: Temp Pulse Resp BP Pulse Ox 98.5 F 104 H 16 127/73 H 99 06/04/18 21:28 06/04/18 21:28 06/04/18 21:28 06/04/18 21:28 06/04/18 21:28 - Diagnostic Test Radiology reviewed: Image reviewed, Reports reviewed Discharge - Discharge Clinical Impression: Viral upper respiratory illness, Folliculitis, Candidiasis, Alcohol abuse Condition: Stable Disposition: HOME, SELF-CARE Instructions: Chronic Alcoholism ([facility]), Folliculitis ([facility]), Upper Respiratory Illness ([facility]), Viral Syndrome ([facility]) Additional Instructions: Follow up with your primary care provider in one to 2 days. Return to the emergency room immediately if symptoms worsen or any additional concerns. Prescriptions: Benzonatate [Tessalon Perles 100 mg Capsule] 100 mg PO ASDIR PRN #40 capsule PRN Reason: Cephalexin Monohydrate [Keflex 500 mg Capsule] 500 mg PO BID #20 capsule Chlordiazepoxide HCl [Librium 25 mg Capsule] 1 cap PO QID #30 capsule Nystatin 1 each MC TID #1 powder.ea. Referrals: NATALIIA PAN DO [NO LOCAL MD] - Follow up as needed
--- NOTE | 2018-06-04 20:58 | RADIOLOGY REPORT (SQ) ---
XR CHEST 2 VIEWS HISTORY: Cough and congestion. COMPARISON: None. FINDINGS: The heart size is normal. No consolidation, pleural effusion, or pneumothorax is seen. There are no acute bony findings. IMPRESSION: No evidence of acute cardiopulmonary disease.
[2018-06-04 21:28] VITALS: BP 127/73
== END 2018-06-04 21:28 | disposition home or self-care (01) ==
LOC: ER 16:01
DX: J06.9 Acute upper respiratory infection, unspecified (principal); B97.89 Other viral agents as the cause of diseases classified elsewhere; L73.9 Follicular disorder, unspecified; B37.2 Candidiasis of skin and nail; Z91.038 Other insect allergy status; F10.20 Alcohol dependence, uncomplicated; R05 Cough; F17.200 Nicotine dependence, unspecified, uncomplicated; I10 Essential (primary) hypertension; J44.9 Chronic obstructive pulmonary disease, unspecified; E11.9 Type 2 diabetes mellitus without complications; Z98.84 Bariatric surgery status; Z88.5 Allergy status to narcotic agent; Z88.1 Allergy status to other antibiotic agents; Z88.2 Allergy status to sulfonamides; Z91.030 Bee allergy status; Z87.892 Personal history of anaphylaxis
CPT/HCPCS: 71046; 99283

== ENCOUNTER 2018-08-05 17:32 | Emergency (ER) | payer SELFPAY ==
[2018-08-05 17:39] VITALS: BP 118/71
[2018-08-05] MEDS ORDERED: NORMAL SALINE 1000 ML 1,000 ML IV ONE (19:57)
--- NOTE | 2018-08-05 19:59 | ER Document Report ---
ED Medical Screen (RME) - General Chief Complaint: Abdominal Pain Stated Complaint: ABDOMINAL PAIN Time Seen by Provider: 08/05/18 19:50 Primary [facility] Provider: [facility] [Primary Care Provider] - Follow up as needed Information source: Patient Notes: Patient complains of generalized abdominal pain that has migrated in location off and on over the past 2 weeks. Patient does report nausea with diarrhea x9 episodes today. Patient states she has chronic diarrhea for the past month. Patient reports low-grade fever. No blood in the stool. Patient also reports frequency and dysuria. Additionally patient complains of an abscess to the left buttock that is very near the rectum for the past 3 days. Patient states with while waiting here area started to spontaneously drain. hx: Diabetes, anxiety, gastric bypass, tonsillectomy, cholecystectomy I have greeted and performed a rapid initial assessment of this patient. A comprehensive ED assessment and evaluation of the patient, analysis of test results and completion of the medical decision making process will be conducted by additional ED providers. TRAVEL OUTSIDE OF THE [place] IN LAST 30 DAYS: No - Related Data Allergies/Adverse Reactions: morphine [Morphine] Allergy (Verified 06/04/18 16:13) nitrofurantoin [From Macrobid] Allergy (Verified 06/04/18 16:13) nitrofurantoin macrocrystalline [From Macrobid] Allergy (Verified 06/04/18 16:13) Sulfa (Sulfonamide Antibiotics) Allergy (Verified 06/04/18 16:13) sulfamethoxazole [From Bactrim] Allergy (Verified 06/04/18 16:13) trimethoprim [From Bactrim] Allergy (Verified 06/04/18 16:13) red ants Allergy (Severe, Uncoded 06/04/18 16:13) Anaphylaxis bees Allergy (Uncoded 06/04/18 16:13) Past Medical History - Social History Chew tobacco use (# tins/day): No Drug Abuse: None - Past Medical History Cardiac Medical History: Reports: Hx Hypertension Pulmonary Medical History: Reports: Hx Asthma, Hx Bronchitis, Hx COPD Endocrine Medical History: Reports: Hx Diabetes Mellitus Type 2 Renal/ Medical History: Denies: Hx Peritoneal Dialysis GI Medical History: Reports: Hx Ulcer Musculoskeltal Medical History: Denies Hx Gout, Denies Hx Muscle Weakness, Denies Hx Musculoskeletal Deformity, Denies Hx Musculoskeletal Trauma Psychiatric Medical History: Reports: Hx Depression Past Surgical History: Reports: Hx Abdominal Surgery - GBP, Hx Section, Hx Cholecystectomy, Hx Gastric Bypass Surgery, Hx Tonsillectomy - Immunizations Immunizations up to date: Yes Hx Diphtheria, Pertussis, Tetanus Vaccination: Yes - 2016 History of Influenza Vaccine for 12/2016 - 05/2017 Season: Yes Influenza Administration Date for 12/2016 - 05/2017 Season: 12/14/16 Physical Exam - Vital signs Vitals: Temp Pulse Resp BP Pulse Ox 99.7 F 106 H 18 118/71 98 08/05/18 17:38 08/05/18 17:38 08/05/18 17:38 08/05/18 17:38 08/05/18 17:38 - Abdominal Inspection: Morbidly Obese Tenderness: Tender - Left upper quadrant, right upper quadrant, right lower quadrant Course - Vital Signs Vital signs: Temp Pulse Resp BP Pulse Ox 99.7 F 106 H 18 118/71 98 08/05/18 17:38 08/05/18 17:38 08/05/18 17:38 08/05/18 17:38 08/05/18 17:38 Doctor's Discharge - Discharge Referrals: [facility] [Primary Care Provider] - Follow up as needed
[2018-08-05 20:58] LABS: APPEARANCE,URINE SLIGHTLY-CLOUDY; BILIRUBIN,URINE NEGATIVE (NEGATIVE); COLOR,URINE YELLOW; GLUCOSE, URINE NEGATIVE (NEGATIVE); KETONES,URINE NEGATIVE (NEGATIVE); LEUKOCYTE ESTERASE,URINE TRACE (NEGATIVE); NITRITE,URINE NEGATIVE (NEGATIVE); PROTEIN,URINE NEGATIVE (NEGATIVE); URINE SPECIFIC GRAVITY 1.004; UROBILINOGEN,URINE NEGATIVE mg/dL (<2.0)
[2018-08-05 21:41] LABS: ABSOLUTE EOSINOPHILS # (AUTO) 0.1 10^3/uL (0.0-0.6); ABSOLUTE LYMPHOCYTES (AUTO) 1.4 10^3/uL (0.5-4.7); ABSOLUTE NEUT (AUTO) 10.2 10^3/uL (1.7-8.2); BASOPHILS % (AUTO) 0.4 % (0-2); EOSINOPHILS % (AUTO) 0.9 % (0-6); HEMATOCRIT 28.8 % (36.0-47.0); HEMOGLOBIN 9.3 g/dL (12.0-15.5); MEAN CORPUSCULAR HEMOGLOBIN 33.4 pg (27.0-33.4); MEAN CORPUSCULAR HGB CONC 32.3 g/dL (32.0-36.0); MEAN CORPUSCULAR VOLUME 103 fl (80-97); MONOCYTES % (AUTO) 7.6 % (3-13); PLATELET COUNT 185 10^3/uL (150-450); RED BLOOD COUNT 2.79 10^6/uL (3.72-5.28); RED CELL DISTRIBUTION WIDTH 19.7 % (11.5-14.0); SEGMENTED NEUTROPHILS % (AUTO) 80.1 % (42-78); TOTAL CELLS COUNTED % (AUTO) 100 %; WHITE BLOOD COUNT 12.8 10^3/uL (4.0-10.5)
--- NOTE | 2018-08-05 22:37 | ER Document Report ---
ED General - General Chief Complaint: Abdominal Pain Stated Complaint: ABDOMINAL PAIN Time Seen by Provider: 08/05/18 19:50 Primary Care Provider: Wound Care [Provider Group] - Follow up in 3-5 days [facility] [NO LOCAL MD] - Follow up as needed JAIDEN DE ANDA MD [ACTIVE STAFF] - Follow up in 3-5 days (surgeon ) Notes: Patient is a 48-year-old female with diabetes mellitus, hypertension that presents to the emergency department for chief complaint of abscess on her buttocks. Patient first noticed this 4 days ago and got progressively worse over the period of time, she has had some drainage, and foul odor to it, she is tried warm compresses, and [id number] medications to try to get it to open up, but it is not draining significantly, and her pain is only gotten worse so she decided to come to the emergency department. She has had abscesses in the past, was told she had MRSA in the past as well. She denies having any fevers, chills, night sweats, nausea, vomiting or other systemic symptoms. Denies any chest pain or shortness of breath. She currently rates her pain as a 6 out of 10 describes as a constant aching sensation, at the site of her abscess on her left buttock. Past Medical History: Diabetes, hypertension, hyperlipidemia Past Surgical History: Gastric bypass surgery, tonsillectomy Social History: Admits to smoking cigarettes, denies alcohol or drug use. Family History: Reviewed and noncontributory for presenting illness Allergies: Reviewed, see documented allergy list. REVIEW OF SYSTEMS: Other than noted above, the 12 point review of systems was reviewed with the patient and were negative, all pertinent findings are included in the HPI. PHYSICAL EXAMINATION: Vital signs reviewed, nursing noted reviewed. GENERAL: Patient appears uncomfortable on exam, but no acute distress HEAD: Atraumatic, normocephalic. EYES: Eyes appear normal, extraocular movements intact, sclera anicteric, conjunctiva are normal. ENT: nares patent, oropharynx clear without exudates. Moist mucous membranes. NECK: Normal range of motion, supple without lymphadenopathy LUNGS: Breath sounds clear to auscultation bilaterally and equal. No wheezes rales or rhonchi. HEART: Regular rate and rhythm without murmurs ABDOMEN: Soft, obese, nontender, normoactive bowel sounds. No rebound, guarding, or rigidity. No masses appreciated. External anal exam: Cardiac Technologist present, patient's perianal area was examined, she was noted to have an area of erythema and fluctuance noted on the left buttock, just lateral to the anus, there is tenderness with palpation, no other abscesses noted, she was noted to have a hemorrhoid noted, but not thrombosed. EXTREMITIES: Nontender, good range of motion, no pitting or edema. NEUROLOGICAL: No focal neurological deficits. Moves all extremities spontaneously Motor and sensory grossly intact on exam. PSYCH: Normal mood, normal affect. SKIN: Warm, Dry, normal turgor, no rashes or lesions noted on exposed skin TRAVEL OUTSIDE OF THE [place] IN LAST 30 DAYS: No - Related Data Allergies/Adverse Reactions: morphine [Morphine] Allergy (Verified 06/04/18 16:13) nitrofurantoin [From Macrobid] Allergy (Verified 06/04/18 16:13) nitrofurantoin macrocrystalline [From Macrobid] Allergy (Verified 06/04/18 16:13) Sulfa (Sulfonamide Antibiotics) Allergy (Verified 06/04/18 16:13) sulfamethoxazole [From Bactrim] Allergy (Verified 06/04/18 16:13) trimethoprim [From Bactrim] Allergy (Verified 06/04/18 16:13) red ants Allergy (Severe, Uncoded 06/04/18 16:13) Anaphylaxis bees Allergy (Uncoded 06/04/18 16:13) Past Medical History - General Information source: Patient - Social History Smoking Status: Current Every Day Smoker Chew tobacco use (# tins/day): No Drug Abuse: None Family History: CAD, Malignancy Patient has suicidal ideation: No Patient has homicidal ideation: No - Past Medical History Cardiac Medical History: Reports: Hx Hypertension Pulmonary Medical History: Reports: Hx Asthma, Hx Bronchitis, Hx COPD Endocrine Medical History: Reports: Hx Diabetes Mellitus Type 2 Renal/ Medical History: Denies: Hx Peritoneal Dialysis GI Medical History: Reports: Hx Ulcer Musculoskeletal Medical History: Denies Hx Gout, Denies Hx Muscle Weakness, De nies Hx Musculoskeletal Deformity, Denies Hx Musculoskeletal Trauma Psychiatric Medical History: Reports: Hx Depression Past Surgical History: Reports: Hx Abdominal Surgery - GBP, Hx Section, Hx Cholecystectomy, Hx Gastric Bypass Surgery, Hx Tonsillectomy - Immunizations Immunizations up to date: Yes Hx Diphtheria, Pertussis, Tetanus Vaccination: Yes - 2016 Physical Exam - Vital signs Vitals: Temp Pulse Resp BP Pulse Ox 99.7 F 106 H 18 118/71 98 08/05/18 17:38 08/05/18 17:38 08/05/18 17:38 08/05/18 17:38 08/05/18 17:38 Course - Re-evaluation Re-evalutation: Patient seen and examined vital signs reviewed. Laboratory data and/or imaging were ordered as appropriate for the patient's presenting symptoms and complaint, with consideration of any critical or life threatening conditions that may be associated with their obtained history and exam as noted above. Patient was treated with incision and drainage of her abscess, as noted, patient tolerated well and got relief of her pain, she was also given a dose of IV doxycycline 100 mg, patient has an allergy to Bactrim, and his high resistance pattern to clindamycin in the area, therefore doxycycline was chosen. Results were reviewed when available and demonstrated leukocytosis, mild hypokalemia, mild hyperbilirubinemia, patient was not having abdominal pain, specifically no right upper quadrant pain. The patient was re-evaluated and was stable and improved Evaluation was most consistent with perianal abscess, I&D in the emergency department, recommended follow-up with the wound clinic, and monitoring, patient given a prescription for doxycycline to take twice daily for 7 days. Results were discussed with the patient at this point, after careful consideration I feel that that patient can be discharged from the emergency department, the patient was educated treatments and reasons to return to the emergency department based on their presumed diagnosis as noted above, they were advised to followup with a primary care physician in 2-3 days. Patient was agreeable to plan of care. *Note is created using voice recognition software and may contain spelling, syntax or grammatical errors. Laboratory 08/05/18 08/05/18 08/05/18 17:40 21:05 21:05 WBC 12.8 H RBC 2.79 L Hgb 9.3 L Hct 28.8 L MCV 103 H MCH 33.4 MCHC 32.3 RDW 19.7 H Plt Count 185 Seg Neutrophils % 80.1 H Lymphocytes % 11.0 L Monocytes % 7.6 Eosinophils % 0.9 Basophils % 0.4 Absolute Neutrophils 10.2 H Absolute Lymphocytes 1.4 Absolute Monocytes 1.0 Absolute Eosinophils 0.1 Absolute Basophils 0.0 Sodium Cancelled Potassium Cancelled Chloride Cancelled Carbon Dioxide Cancelled Anion Gap Cancelled BUN Cancelled Creatinine Cancelled Est GFR ( Amer) Cancelled Est GFR (Non-Af Amer) Cancelled Glucose Cancelled Calcium Cancelled Total Bilirubin Cancelled Direct Bilirubin Cancelled Neonat Total Bilirubin Cancelled Neonat Direct Bilirubin Cancelled Neonat Indirect Bili Cancelled AST Cancelled ALT Cancelled Alkaline Phosphatase Cancelled Total Protein Cancelled Albumin Cancelled Lipase Cancelled Serum HCG, Qual Urine Color YELLOW Urine Appearance SLIGHTLY-CLOUDY Urine pH 7.0 Ur Specific [place] 1.004 Urine Protein NEGATIVE Urine Glucose (UA) NEGATIVE Urine Ketones NEGATIVE Urine Blood NEGATIVE Urine Nitrite NEGATIVE Urine Bilirubin NEGATIVE Urine Urobilinogen NEGATIVE Ur Leukocyte Esterase TRACE H Urine WBC (Auto) 1 Urine RBC (Auto) 1 Urine Bacteria (Auto) 2+ Squamous Epi Cells Auto 2 Urine Ascorbic Acid NEGATIVE 08/05/18 08/05/18 08/05/18 21:05 22:47 22:47 WBC RBC Hgb Hct MCV MCH MCHC RDW Plt Count Seg Neutrophils % Lymphocytes % Monocytes % Eosinophils % Basophils % Absolute Neutrophils Absolute Lymphocytes Absolute Monocytes Absolute Eosinophils Absolute Basophils Sodium Cancelled Potassium Cancelled Chloride Cancelled Carbon Dioxide Cancelled Anion Gap Cancelled BUN Cancelled Creatinine Cancelled Est GFR ( Amer) Cancelled Est GFR (Non-Af Amer) Cancelled Glucose Cancelled Calcium Cancelled Total Bilirubin Cancelled Direct Bilirubin Cancelled Neonat Total Bilirubin Cancelled Neonat Direct Bilirubin Cancelled Neonat Indirect Bili Cancelled AST Cancelled ALT Cancelled Alkaline Phosphatase Cancelled Total Protein Cancelled Albumin Cancelled Lipase Cancelled Serum HCG, Qual Cancelled Cancelled Urine Color Urine Appearance Urine pH Ur Specific [place] Urine Protein Urine Glucose (UA) Urine Ketones Urine Blood Urine Nitrite Urine Bilirubin Urine Urobilinogen Ur Leukocyte Esterase Urine WBC (Auto) Urine RBC (Auto) Urine Bacteria (Auto) Squamous Epi Cells Auto Urine Ascorbic Acid 08/05/18 08/05/18 23:29 23:29 WBC RBC Hgb Hct MCV MCH MCHC RDW Plt Count Seg Neutrophils % Lymphocytes % Monocytes % Eosinophils % Basophils % Absolute Neutrophils Absolute Lymphocytes Absolute Monocytes Absolute Eosinophils Absolute Basophils Sodium 135.0 L Potassium 3.2 L Chloride 102 Carbon Dioxide 24 Anion Gap 9 BUN < 2 L Creatinine 0.45 L Est GFR ( Amer) > 60 Est GFR (Non-Af Amer) > 60 Glucose 219 H Calcium 8.6 Total Bilirubin 1.7 H Direct Bilirubin 0.9 H Neonat Total Bilirubin Not Reportable Neonat Direct Bilirubin Not Reportable Neonat Indirect Bili Not Reportable AST 58 H ALT 31 Alkaline Phosphatase 132 H Total Protein 6.0 L Albumin 2.6 L Lipase 127.9 Serum HCG, Qual NEGATIVE Urine Color Urine Appearance Urine pH Ur Specific [place] Urine Protein Urine Glucose (UA) Urine Ketones Urine Blood Urine Nitrite Urine Bilirubin Urine Urobilinogen Ur Leukocyte Esterase Urine WBC (Auto) Urine RBC (Auto) Urine Bacteria (Auto) Squamous Epi Cells Auto Urine Ascorbic Acid - Vital Signs Vital signs: Temp Pulse Resp BP Pulse Ox 98.4 F 100 14 118/71 98 08/06/18 02:10 08/06/18 02:10 08/06/18 02:10 08/05/18 17:38 08/06/18 02:10 - Laboratory Result Diagrams: 08/05/18 21:05 08/05/18 23:29 Laboratory results interpreted by me: 08/05/18 08/05/18 08/05/18 17:40 21:05 23:29 WBC 12.8 H RBC 2.79 L Hgb 9.3 L Hct 28.8 L MCV 103 H RDW 19.7 H Seg Neutrophils % 80.1 H Lymphocytes % 11.0 L Absolute Neutrophils 10.2 H Sodium 135.0 L Potassium 3.2 L BUN < 2 L Creatinine 0.45 L Glucose 219 H Total Bilirubin 1.7 H Direct Bilirubin 0.9 H AST 58 H Alkaline Phosphatase 132 H Total Protein 6.0 L Albumin 2.6 L Ur Leukocyte Esterase TRACE H Procedures - Incision and Drainage Left Buttock Type: Complex Anesthetic type: 1% Lidocaine w/epi mL's of anesthetic: 3 Blade size: 11 I&D procedure: Sterile dressing applied Incision Method: Incision made by scalpel Amount/type of drainage: 7 Notes: Patient's abscess was identified, prepped, and anesthetized, it incised with 11 blade scalpel, purulent bloody drainage was expelled, it was irrigated extensively with saline, and that was then probed with cotton tip swab, which expelled additional pus drainage, and broke up loculations, however did not track deep, and low suspicion for visualization, or perirectal abscess, the wound was then irrigated further, and sterile dressing was applied. Discharge - Discharge Clinical Impression: Perianal abscess, Hypokalemia Leukocytosis Qualifiers: Leukocytosis type: unspecified Qualified Code(s): D72.829 - Elevated white blood cell count, unspecified Condition: Stable Disposition: HOME, SELF-CARE Instructions: Abscess ([facility]), Post Incision and Drainage Additional Instructions: Please keep gauze to the area, will continue to drain over the next several days, please follow-up with the wound clinic or with surgery, to have it checked on. Please complete the entire course of antibiotics as prescribed. To protect the area, wipe to the other side, and applying a layer of Vaseline to protect it as well. Prescriptions: RX: Doxycycline Hyclate 100 mg PO BID #20 capsule Referrals: [facility] [NO LOCAL MD] - Follow up as needed Wound Care [Provider Group] - Follow up in 3-5 days JAIDEN DE ANDA MD [ACTIVE STAFF] - Follow up in 3-5 days (surgeon )
[2018-08-05] MEDS ORDERED: FENTANYL CITRATE INJ/PF 100 MCG/2 ML AMPUL IV ONE (22:56)
[2018-08-05] MEDS ORDERED: ONDANSETRON HCL INJ/PF 4 MG/2 ML SDV IV ONE (22:56)
[2018-08-05] MEDS ORDERED: DOXYCYCLINE HYCLATE INJ 100 MG VIAL IV ONE (22:56)
[2018-08-05] MEDS ORDERED: LIDOCAINE 1%/EPINEPHRINE INJ 20 ML VIAL INJ ONE (23:23)
[2018-08-05 23:54] LABS: ALANINE AMINOTRANSFERASE 31 U/L (9-52); ALBUMIN 2.6 g/dL (3.5-5.0); ALKALINE PHOSPHATASE 132 U/L (38-126); ANION GAP 9 (5-19); ASPARTATE AMINO TRANSFERASE 58 U/L (14-36); BILIRUBIN,DIRECT 0.9 mg/dL (0.0-0.4); BILIRUBIN,TOTAL 1.7 mg/dL (0.2-1.3); CALCIUM 8.6 mg/dL (8.4-10.2); CARBON DIOXIDE 24 mmol/L (22-30); CHLORIDE 102 mmol/L (98-107); GLUCOSE 219 mg/dL (75-110); LIPASE 127.9 U/L (23-300); POTASSIUM 3.2 mmol/L (3.6-5.0)
[2018-08-05 23:59] LABS: BLOOD UREA NITROGEN < 2 mg/dL (7-20)
== END 2018-08-06 02:11 | disposition home or self-care (01) ==
LOC: ER 17:32
PROC: 0H98XZZ Drainage of Buttock Skin, External Approach (ICD-10-PCS; principal; 2018-08-05)
DX: K61.0 Anal abscess (principal); E87.6 Hypokalemia; D72.829 Elevated white blood cell count, unspecified; R10.9 Unspecified abdominal pain; I10 Essential (primary) hypertension; E11.9 Type 2 diabetes mellitus without complications; F17.200 Nicotine dependence, unspecified, uncomplicated; J44.9 Chronic obstructive pulmonary disease, unspecified
CPT/HCPCS: 99283; 96361; 96375; 96365; 36415; 87086; 83690; 84703; 85025; 87088; 80053; 81001; 87186; 46050; J3490 ×2; J3010; J2405; J7030

== ENCOUNTER 2018-08-10 19:38 | Emergency (ER) | payer SELFPAY ==
[2018-08-10] MEDS ORDERED: IBUPROFEN 800 MG TABLET PO ONE (22:44)
[2018-08-10] MEDS ORDERED: CLINDAMYCIN HCL 150 MG CAPSULE PO ONE (22:44)
--- NOTE | 2018-08-10 22:51 | ER Document Report ---
ED General - General Chief Complaint: Skin Problem Stated Complaint: SICK Time Seen by Provider: 08/10/18 22:29 Mode of Arrival: Ambulatory Information source: Patient TRAVEL OUTSIDE OF THE [place] IN LAST 30 DAYS: No - HPI Patient complains to provider of: Abscess recheck Onset: Other - 2 days ago Onset/Duration: Persistent Quality of pain: Sharp Severity: Moderate Pain Level: 3 Associated symptoms: denies: Chills, Fever Exacerbated by: Denies Relieved by: Denies Similar symptoms previously: No Recently seen / treated by doctor: No Notes: 48-year-old female here for a left buttock abscess check. She was started on doxycycline couple of days ago for MRSA coverage. Patient apparently did not tolerate the doxycycline as it gave her flulike illness and diarrhea. - Related Data Allergies/Adverse Reactions: morphine [Morphine] Allergy (Verified 06/04/18 16:13) nitrofurantoin [From Macrobid] Allergy (Verified 06/04/18 16:13) nitrofurantoin macrocrystalline [From Macrobid] Allergy (Verified 06/04/18 16:13) Sulfa (Sulfonamide Antibiotics) Allergy (Verified 06/04/18 16:13) sulfamethoxazole [From Bactrim] Allergy (Verified 06/04/18 16:13) trimethoprim [From Bactrim] Allergy (Verified 06/04/18 16:13) red ants Allergy (Severe, Uncoded 06/04/18 16:13) Anaphylaxis bees Allergy (Uncoded 06/04/18 16:13) Past Medical History - General Information source: Patient - Social History Smoking Status: Current Every Day Smoker Family History: Reviewed & Not Pertinent, CAD, Malignancy Patient has suicidal ideation: No Patient has homicidal ideation: No - Past Medical History Cardiac Medical History: Reports: Hx Hypertension Pulmonary Medical History: Reports: Hx Asthma, Hx Bronchitis, Hx COPD Endocrine Medical History: Reports: Hx Diabetes Mellitus Type 2 Renal/ Medical History: Denies: Hx Peritoneal Dialysis GI Medical History: Reports: Hx Ulcer Musculoskeletal Medical History: Denies Hx Gout, Denies Hx Muscle Weakness, Denies Hx Musculoskeletal Deformity, Denies Hx Musculoskeletal Trauma Psychiatric Medical History: Reports: Hx Depression Past Surgical History: Reports: Hx Abdominal Surgery - GBP, Hx Section, Hx Cholecystectomy, Hx Gastric Bypass Surgery, Hx Tonsillectomy - Immunizations Immunizations up to date: Yes Hx Diphtheria, Pertussis, Tetanus Vaccination: Yes - 2016 Review of Systems - Review of Systems Notes: Constitutional: No fevers. No chills. EENT: No eye redness. No eye pain. No ear pain. No sore throat. Cardiovascular: No chest pain. No palpitations. Respiratory: No cough. No shortness of breath. No respiratory distress. Gastrointestinal: No abdominal pain. No nausea, vomiting, or diarrhea. Genitourinary: Atraumatic. No lesions. No pain. No discharge. Musculoskeletal: Atraumatic. No swelling. No deformities. Skin: Positive for left gluteal abscess, right gluteal abscess, abdominal wall abscess Lymphatic: No swollen lymph nodes. Neurologic: No headache. No syncope. Psychiatric: No suicidal or homicidal ideation. Physical Exam - Vital signs Vitals: Temp Pulse Resp BP Pulse Ox 98.9 F 98 16 103/64 98 08/10/18 19:50 08/10/18 19:50 08/10/18 19:50 08/10/18 19:50 08/10/18 19:50 - Notes Notes: General: Well-developed, well-nourished. In no acute distress. Non-toxic appearing. Cardiac: Well-perfused. Regular rate and rhythm. No murmurs, rubs, or gallops. Pulmonary: No respiratory distress. No cyanosis. Bilateral lung fiels are clear to auscultation. Abdominal: Non-distended. Non-rigid. Bowels sounds are present in all four quadrants. No guarding or rebound. HEENT: Head is atraumatic. Conjunctivae not reddened. No tearing. PERRL. EOMI. Orbits atraumatic. No periorbital swelling or erythema. Oropharynx is without erythema, swelling, or exudates. Neck: Supple. No adenopathy. No meningismus. Dermatologic: Left gluteal abscess incised and drained. This surgical site looking good. No active drainage. There is a semi-fluctuant abscess forming on the right gluteus. There is also a dime size left-sided abdominal wall abscess which is forming. Chest: Atraumatic. No chest wall tenderness to palpation. Musculoskeletal: Moves all extremities well. No range of motion deficits. no muscular or joint tenderness. No paraspinal muscle tenderness. no midline spinal tenderness or step-off. Genitourinary: Examination deferred Neurologic: No gross neurologic deficits. Psychiatric: Normal mood. Course - Re-evaluation Re-evalutation: 08/10/18 22:48 We will start the patient on clindamycin in lieu of doxycycline. Recheck in 2 days - Vital Signs Vital signs: Temp Pulse Resp BP Pulse Ox 98.9 F 98 16 103/64 98 08/10/18 19:50 08/10/18 19:50 08/10/18 19:50 08/10/18 19:50 08/10/18 19:50 Discharge - Discharge Clinical Impression: Gluteal abscess, Abdominal wall abscess Condition: Good Disposition: HOME, SELF-CARE Instructions: Post Incision and Drainage Prescriptions: Ibuprofen [Ibu] 800 mg PO Q8HP PRN #15 tablet PRN Reason: Clindamycin HCl [Cleocin 150 mg Capsule] 2 tab PO Q8 10 Days #60 capsule Referrals: AICHA KELLER PA-C [Emergency Provider] - 08/12/18
[2018-08-10 23:19] VITALS: BP 132/76
== END 2018-08-10 23:18 | disposition home or self-care (01) ==
LOC: ER 19:38
DX: L02.31 Cutaneous abscess of buttock (principal); L02.211 Cutaneous abscess of abdominal wall; F17.200 Nicotine dependence, unspecified, uncomplicated; I10 Essential (primary) hypertension; E11.9 Type 2 diabetes mellitus without complications; Z88.6 Allergy status to analgesic agent; Z88.2 Allergy status to sulfonamides; Z88.3 Allergy status to other anti-infective agents; Z90.49 Acquired absence of other specified parts of digestive tract; Z98.84 Bariatric surgery status
CPT/HCPCS: 99282

== ENCOUNTER 2018-08-20 05:58 | Inpatient (IN) | payer OTHER ==
--- NOTE | 2018-08-20 07:27 | ER Document Report ---
ED General - General Chief Complaint: Abscess Stated Complaint: SKIN ISSUE Time Seen by Provider: 08/20/18 07:25 TRAVEL OUTSIDE OF THE [place] IN LAST 30 DAYS: No - HPI Notes: Patient is a 48-year-old female that presents to the emergency department for chief complaint of abscesses. Patient states over the last few weeks she has had an outbreak of abscesses. She was recently here in the emergency room for incision and drainage of a left gluteal abscess. Patient return to the emergency room because she was not tolerating her doxycycline and had her antibiotic switch. She states since then that abscess has resolved and feels much better. She states her last few days she has noticed a new abscess on her right gluteus. She has having pain with bowel movements and reports a deep pain in her pelvis/rectal region. She denies fevers, chills, purulent or bloody stools and abdominal pain. Patient also complains of a few smaller lesions on her labia as well as a rash to her lower abdomen. Past Medical History: Diabetes, hypertension, hyperlipidemia Past Surgical History: Gastric bypass surgery, tonsillectomy Social History: Admits to smoking cigarettes, denies alcohol or drug use. Family History: Reviewed and noncontributory for presenting illness Allergies: Reviewed, see documented allergy list. REVIEW OF SYSTEMS: CONSTITUTIONAL : No fever No chills No diaphoresis No recent illness EENT: No vision changes No congestion No sore throat CARDIOVASCULAR: No chest pain No palpitations RESPIRATORY: No shortness of breath No cough No difficulty breathing GASTROINTESTINAL: Rectal pain No abdominal pain No nausea No vomiting No diarrhea GENITOURINARY: No dysuria No hematuria No difficulty urinating MUSCULOSKELETAL: No back pain No leg pain No arm pain SKIN: No rashes abscesses LYMPHATIC: No swollen, enlarged glands. NEUROLOGICAL: No lightheadedness No headache No weakness No paresthesias PSYCHIATRIC: No anxiety No depression PHYSICAL EXAMINATION: Vital signs reviewed, nursing noted reviewed. GENERAL: Well-appearing, obese and in no acute distress. HEAD: Atraumatic, normocephalic. EYES: Eyes appear normal, extraocular movements intact, sclera anicteric, conjunctiva are normal. ENT: nares patent, oropharynx clear without exudates. Moist mucous membranes. NECK: Normal range of motion, supple without lymphadenopathy LUNGS: Breath sounds clear to auscultation bilaterally and equal. No wheezes rales or rhonchi. HEART: Regular rate and rhythm without murmurs ABDOMEN: Soft, nontender, normoactive bowel sounds. No rebound, guarding, or rigidity. No masses appreciated. EXTREMITIES: Nontender, good range of motion, no pitting or edema. NEUROLOGICAL: No focal neurological deficits. Moves all extremities spontan eously Motor and sensory grossly intact on exam. PSYCH: Normal mood, normal affect. SKIN: Warm, Dry, normal turgor, right gluteal abscess 2.0 x 2.0 cm just lateral to anal verge with fluctuance and mild surrounding erythema and 2 overlying open wounds without drainage or bleeding.. Left upper abdominal erythema and induration measuring 2.0 x 1.0 with no underlying fluctuance or drainage. Punct ate erythema without fluctuance to superior left labia. Erythematous rash in pannus fold to lower abdomen - Related Data Allergies/Adverse Reactions: morphine [Morphine] Allergy (Verified 06/04/18 16:13) nitrofurantoin [From Macrobid] Allergy (Verified 06/04/18 16:13) nitrofurantoin macrocrystalline [From Macrobid] Allergy (Verified 06/04/18 16:13) Sulfa (Sulfonamide Antibiotics) Allergy (Verified 06/04/18 16:13) sulfamethoxazole [From Bactrim] Allergy (Verified 06/04/18 16:13) trimethoprim [From Bactrim] Allergy (Verified 06/04/18 16:13) red ants Allergy (Severe, Uncoded 06/04/18 16:13) Anaphylaxis bees Allergy (Uncoded 06/04/18 16:13) Past Medical History - Social History Smoking Status: Current Every Day Smoker Family History: Reviewed & Not Pertinent, CAD, Malignancy Patient has suicidal ideation: No Patient has homicidal ideation: No - Past Medical History Cardiac Medical History: Reports: Hx Hypertension Pulmonary Medical History: Reports: Hx Asthma, Hx Bronchitis, Hx COPD Endocrine Medical History: Reports: Hx Diabetes Mellitus Type 2 Renal/ Medical History: Denies: Hx Peritoneal Dialysis GI Medical History: Reports: Hx Ulcer Musculoskeletal Medical History: Denies Hx Gout, Denies Hx Muscle Weakness, Den ies Hx Musculoskeletal Deformity, Denies Hx Musculoskeletal Trauma Psychiatric Medical History: Reports: Hx Depression Past Surgical History: Reports: Hx Abdominal Surgery - GBP, Hx Section, Hx Cholecystectomy, Hx Gastric Bypass Surgery, Hx Tonsillectomy - Immunizations Immunizations up to date: Yes Hx Diphtheria, Pertussis, Tetanus Vaccination: Yes - 2016 Physical Exam - Vital signs Vitals: Temp Pulse Resp BP Pulse Ox 98.0 F 108 H 15 99/77 L 97 08/20/18 06:02 08/20/18 06:02 08/20/18 06:02 08/20/18 06:02 08/20/18 06:02 Course - Re-evaluation Re-evalutation: 08/20/18 07:50 Vitals reviewed. Nursing notes reviewed. Patient is tachycardic and mildly hypotensive. She is well-appearing and mentating appropriately. Patient is afebrile. She was started on IV fluids for her tachycardia and hypotension. CT scan will be obtained to evaluate her perianal abscess for tracking near the rectum. Patient was given a dose of IV clindamycin for her infections. 08/20/18 10:56 Patient's lab work shows elevated lactate at 7.8. Patient is meeting severe sepsis criteria. She was given a dose of clindamycin at presentation for her possible abscesses. Patient also has acute urinary tract infection. CT scan of her pelvis and bedside ultrasound showed no area of fluid collection that would require drainage. She also does not have any free air consistent with necrotizing fasciitis. Patient was ordered vancomycin and Rocephin for her acute UTI as well as gluteal cellulitis. Patient is improving with IV fluids. Her pain has reoccurred after the initial dose of pain medication and she was given a second dose of fentanyl. Patient's care was discussed with Dr. Talley who accepts admission. Laboratory 08/20/18 08/20/18 08/20/18 08:30 08:30 08:30 WBC 8.9 RBC 2.35 L Hgb 8.2 L Hct 24.5 L MCV 104 H MCH 35.0 H MCHC 33.5 RDW 19.5 H Plt Count 132 L Seg Neutrophils % 65.3 Lymphocytes % 24.6 Monocytes % 7.9 Eosinophils % 1.9 Basophils % 0.3 Absolute Neutrophils 5.8 Absolute Lymphocytes 2.2 Absolute Monocytes 0.7 Absolute Eosinophils 0.2 Absolute Basophils 0.0 PT 16.0 H INR 1.22 VBG pH VBG pCO2 VBG HCO3 VBG Base Excess Sodium 138.4 Potassium 3.9 Chloride 102 Carbon Dioxide 21 L Anion Gap 15 BUN 3 L Creatinine 0.54 Est GFR ( Amer) > 60 Est GFR (Non-Af Amer) > 60 Glucose 160 H POC Glucose Lactic Acid Calcium 9.1 Total Bilirubin 1.3 Direct Bilirubin 0.7 H Neonat Total Bilirubin Not Reportable Neonat Direct Bilirubin Not Reportable Neonat Indirect Bili Not Reportable AST 54 H ALT 27 Alkaline Phosphatase 137 H Total Protein 6.3 Albumin 2.7 L Urine Color Urine Appearance Urine pH Ur Specific [place] Urine Protein Urine Glucose (UA) Urine Ketones Urine Blood Urine Nitrite Urine Bilirubin Urine Urobilinogen Ur Leukocyte Esterase Urine WBC (Auto) Urine RBC (Auto) Urine Bacteria (Auto) Squamous Epi Cells Auto Urine Mucus (Auto) Urine Ascorbic Acid 08/20/18 08/20/18 08/20/18 08:30 09:01 09:09 WBC RBC Hgb Hct MCV MCH MCHC RDW Plt Count Seg Neutrophils % Lymphocytes % Monocytes % Eosinophils % Basophils % Absolute Neutrophils Absolute Lymphocytes Absolute Monocytes Absolute Eosinophils Absolute Basophils PT INR VBG pH VBG pCO2 VBG HCO3 VBG Base Excess Sodium Potassium Chloride Carbon Dioxide Anion Gap BUN Creatinine Est GFR ( Amer) Est GFR (Non-Af Amer) Glucose POC Glucose 160 H Lactic Acid 7.8 H Calcium Total Bilirubin Direct Bilirubin Neonat Total Bilirubin Neonat Direct Bilirubin Neonat Indirect Bili AST ALT Alkaline Phosphatase Total Protein Albumin Urine Color YELLOW Urine Appearance CLOUDY Urine pH 6.0 Ur Specific [place] 1.005 Urine Protein NEGATIVE Urine Glucose (UA) NEGATIVE Urine Ketones NEGATIVE Urine Blood NEGATIVE Urine Nitrite POSITIVE H Urine Bilirubin NEGATIVE Urine Urobilinogen NEGATIVE Ur Leukocyte Esterase NEGATIVE Urine WBC (Auto) 8 Urine RBC (Auto) 10 Urine Bacteria (Auto) 3+ Squamous Epi Cells Auto 5 Urine Mucus (Auto) RARE Urine Ascorbic Acid NEGATIVE 08/20/18 10:15 WBC RBC Hgb Hct MCV MCH MCHC RDW Plt Count Seg Neutrophils % Lymphocytes % Monocytes % Eosinophils % Basophils % Absolute Neutrophils Absolute Lymphocytes Absolute Monocytes Absolute Eosinophils Absolute Basophils PT INR VBG pH 7.34 VBG pCO2 40.5 VBG HCO3 21.3 VBG Base Excess -4.2 Sodium Potassium Chloride Carbon Dioxide Anion Gap BUN Creatinine Est GFR ( Amer) Est GFR (Non-Af Amer) Glucose POC Glucose Lactic Acid Calcium Total Bilirubin Direct Bilirubin Neonat Total Bilirubin Neonat Direct Bilirubin Neonat Indirect Bili AST ALT Alkaline Phosphatase Total Protein Albumin Urine Color Urine Appearance Urine pH Ur Specific [place] Urine Protein Urine Glucose (UA) Urine Ketones Urine Blood Urine Nitrite Urine Bilirubin Urine Urobilinogen Ur Leukocyte Esterase Urine WBC (Auto) Urine RBC (Auto) Urine Bacteria (Auto) Squamous Epi Cells Auto Urine Mucus (Auto) Urine Ascorbic Acid Pelvis CT 08/20/18 07:39 IMPRESSION: NO SIGNIFICANT OR ACUTE FINDINGS IN THE PELVIS. NO EVIDENCE OF PERIANAL OR PERIRECTAL ABSCESS. - Vital Signs Vital signs: Temp Pulse Resp BP Pulse Ox 98.0 F 108 H 15 99/77 L 97 08/20/18 06:02 08/20/18 06:02 08/20/18 06:02 08/20/18 06:02 08/20/18 06:02 - Laboratory Result Diagrams: 08/20/18 08:30 08/20/18 08:30 Laboratory results interpreted by me: 08/20/18 08/20/18 08/20/18 08:30 08:30 08:30 RBC 2.35 L Hgb 8.2 L Hct 24.5 L MCV 104 H MCH 35.0 H RDW 19.5 H Plt Count 132 L PT 16.0 H Carbon Dioxide 21 L BUN 3 L Glucose 160 H POC Glucose Lactic Acid Direct Bilirubin 0.7 H AST 54 H Alkaline Phosphatase 137 H Albumin 2.7 L Urine Nitrite 08/20/18 08/20/18 08/20/18 08:30 09:01 09:09 RBC Hgb Hct MCV MCH RDW Plt Count PT Carbon Dioxide BUN Glucose POC Glucose 160 H Lactic Acid 7.8 H Direct Bilirubin AST Alkaline Phosphatase Albumin Urine Nitrite POSITIVE H - EKG Interpretation by Me Additional EKG results interpreted by me: 08/20/18 10:55 Interpreted by myself 1002: Normal sinus rhythm, rate 97, normal axis, no ectopy, no STEMI Critical Care Note - Critical Care Note Total time excluding time spent on procedures (mins): 40 Comments: The critical care time 40 exclusive from separate billable procedures for a patient requiring complex medical decision making, and high potential for clinical deterioration. Time spent obtaining history from patient or surrogate, discussions with consultants, development of treatment plan with patient or surrogate, evaluation of patient's response to treatment, examination of patient, ordering and performing treatments and interventions, ordering and review of laboratory studies, re-evaluation of patient's condition, ordering and review of radiographic studies and review of old charts Discharge - Discharge Clinical Impression: Yeast infection of the skin, Severe sepsis, Cellulitis, gluteal, Acute UTI, Lactic acidosis Condition: Stable Disposition: ADMITTED INPATIENT Admitting Provider: Mayank (Hospitalist) Unit Admitted: ICU
[2018-08-20] MEDS ORDERED: NORMAL SALINE 1000 ML 1,000 ML IV ONE ×3 (07:37→10:55)
[2018-08-20] MEDS ORDERED: CLINDAMYCIN 600 MG/D5W RTU 600 MG/50 ML RTUPB IV ONE (07:37)
[2018-08-20] MEDS ORDERED: FENTANYL CITRATE INJ/PF 100 MCG/2 ML AMPUL IV ONE ×2 (07:42→10:32)
[2018-08-20] MEDS ORDERED: NYSTATIN TOPICAL POWDER 15 GM TP ONE (07:51)
[2018-08-20 09:00] LABS: ABSOLUTE EOSINOPHILS # (AUTO) 0.2 10^3/uL (0.0-0.6); ABSOLUTE LYMPHOCYTES (AUTO) 2.2 10^3/uL (0.5-4.7); ABSOLUTE MONOCYTES (AUTO) 0.7 10^3/uL (0.1-1.4); ABSOLUTE NEUT (AUTO) 5.8 10^3/uL (1.7-8.2); BASOPHILS % (AUTO) 0.3 % (0-2); EOSINOPHILS % (AUTO) 1.9 % (0-6); HEMATOCRIT 24.5 % (36.0-47.0); HEMOGLOBIN 8.2 g/dL (12.0-15.5); LYMPHOCYTES % (AUTO) 24.6 % (13-45); MEAN CORPUSCULAR HGB CONC 33.5 g/dL (32.0-36.0); MEAN CORPUSCULAR VOLUME 104 fl (80-97); MONOCYTES % (AUTO) 7.9 % (3-13); PLATELET COUNT 132 10^3/uL (150-450); RED BLOOD COUNT 2.35 10^6/uL (3.72-5.28); RED CELL DISTRIBUTION WIDTH 19.5 % (11.5-14.0); SEGMENTED NEUTROPHILS % (AUTO) 65.3 % (42-78); TOTAL CELLS COUNTED % (AUTO) 100 %; WHITE BLOOD COUNT 8.9 10^3/uL (4.0-10.5)
[2018-08-20 09:29] LABS: ALANINE AMINOTRANSFERASE 27 U/L (9-52); ALBUMIN 2.7 g/dL (3.5-5.0); ALKALINE PHOSPHATASE 137 U/L (38-126); ANION GAP 15 (5-19); ASPARTATE AMINO TRANSFERASE 54 U/L (14-36); BILIRUBIN,DIRECT 0.7 mg/dL (0.0-0.4); BILIRUBIN,TOTAL 1.3 mg/dL (0.2-1.3); BLOOD UREA NITROGEN 3 mg/dL (7-20); CALCIUM 9.1 mg/dL (8.4-10.2); CARBON DIOXIDE 21 mmol/L (22-30); CHLORIDE 102 mmol/L (98-107); GLUCOSE 160 mg/dL (75-110); POTASSIUM 3.9 mmol/L (3.6-5.0); SODIUM 138.4 mmol/L (137-145); TOTAL PROTEIN 6.3 g/dL (6.3-8.2)
[2018-08-20 09:33] LABS: APPEARANCE,URINE CLOUDY; BILIRUBIN,URINE NEGATIVE (NEGATIVE); COLOR,URINE YELLOW; GLUCOSE, URINE NEGATIVE (NEGATIVE); KETONES,URINE NEGATIVE (NEGATIVE); LEUKOCYTE ESTERASE,URINE NEGATIVE (NEGATIVE); NITRITE,URINE POSITIVE (NEGATIVE); PROTEIN,URINE NEGATIVE (NEGATIVE); URINE SPECIFIC GRAVITY 1.005; UROBILINOGEN,URINE NEGATIVE mg/dL (<2.0)
[2018-08-20 09:34] LABS: INTERNATIONAL RATION (INR) 1.22
--- NOTE | 2018-08-20 09:43 | RADIOLOGY REPORT (SQ) ---
EXAM DESCRIPTION: CT PELVIS WITH COMPLETED DATE/TIME: 08/20/2018 9:29 am REASON FOR STUDY: right perianal abscess COMPARISON: 01/10/2018. TECHNIQUE: CT scan of the abdomen and pelvis performed with intravenous and oral contrast using jose guadalupe desmond scanning technique with dynamic intravenous contrast injection. Images reviewed with lung, soft t issue, and bone windows. Reconstructed coronal and sagittal MPR images reviewed. Delayed images for e valuation of the urinary system also acquired. All images stored on PACS. All CT scanners at this facility use dose modulation, iterative reconstruction, and/or weight based d osing when appropriate to reduce radiation dose to as low as reasonably achievable (ALARA). [facility]: Dose Right [facility]: CareDose [facility]: Dose Right [facility]: Teradose 4D [facility]: [email or web address] CONTRAST TYPE AND DOSE: contrast/concentration: Isovue 350.00 mg/ml; Total Contrast Delivered: 95.0 ml; Total Saline Delivered: 70.0 ml RENAL FUNCTION: BUN 12 creatinine 0.45. RADIATION DOSE: CT Rad equipment meets quality standard of care and radiation dose reduction techniq ues were employed. CTDIvol: 18.3 - 19.7 mGy. DLP: 1475 mGy-cm.. LIMITATIONS: None. FINDINGS: PELVIC BONES: No acute fracture. No worrisome bone lesions. VISUALIZED SPINE: No acute findings. HIP(S): No acute fracture or dislocation. No worrisome bone lesions. PELVIC SOFT TISSUES: No significant findings. IUD in the uterus. Probable uterine fibroid. EXTRAPELVIC SOFT TISSUES: No significant findings. ABDOMINAL WALL: No masses. No hernias. BONES: No significant or acute findings. OTHER: No other significant finding. IMPRESSION: NO SIGNIFICANT OR ACUTE FINDINGS IN THE PELVIS. NO EVIDENCE OF PERIANAL OR PERIRECTAL A BSCESS. TECHNICAL DOCUMENTATION: JOB ID: [id number] Quality ID # [id number]: Final reports with documentation of one or more dose reduction techniques (e.g., Au tomated exposure control, adjustment of the mA and/or kV according to patient size, use of iterative reconstruction technique) 2010 [employer]- All Rights Reserved Reading location - IP/workstation name: [email or web address]-
[2018-08-20] MEDS ORDERED: CEFTRIAXONE INJ 1000 MG VIAL IV ONE (10:33)
[2018-08-20] MEDS ORDERED: VANCOMYCIN HCL INJ 1000 MG VIAL IV ONE (10:33)
[2018-08-20 10:34] LABS: VENOUS BLOOD BASE EXCESS -4.2 mmol/L; VENOUS BLOOD HCO3 21.3 mmol/L (20-32); VENOUS BLOOD PCO2 40.5 mmHg (35-63); VENOUS BLOOD PH 7.34 (7.30-7.42)
[2018-08-20] MEDS ORDERED: ONDANSETRON HCL INJ/PF 4 MG/2 ML SDV IV PRN (14:17)
[2018-08-20] MEDS ORDERED: ACETAMINOPHEN 325 MG TABLET PO PRN (14:17)
[2018-08-20] MEDS ORDERED: NORMAL SALINE 1000 ML 1,000 ML IV PRN ×2 (14:17→19:21)
[2018-08-20] MEDS ORDERED: MAG HYDROX/AL HYDROX/SIMETH SUSP 30 ML UDCUP PO PRN (14:17)
[2018-08-20] MEDS: METOCLOPRAMIDE HCL INJ/PF 10 MG/2 ML SDV IV SCH ×2 (18:02→22:36)
--- NOTE | 2018-08-20 19:19 | PDOC H&P ---
History of Present Illness Admission Date/PCP: 08/20/18 11:02 History of Present Illness: 48-year-old female has medical history of obesity, hypertension, asthma, COPD, diabetes, EtOH abuse, tobacco abuse, depression, anxiety, diabetes, who had recently visited ED for drainage of left gluteal abscess, and was sent home on oral antibiotics, patient was doing fine until she noticed drainage and pain on the right gluteal region. Initial impression was recurrent abscess, CT pelvis and bedside ultrasound in ED not show any drainable collection, was negative for any air consistent with necrotizing fasciitis. Was noted to be hypotensive, elevated lactic acid and leukocytosis. She was started on volume resuscitation and IV empiric antibiotics and hospital was consulted for admission. Past Medical History Cardiac Medical History: Reports: Hypertension Pulmonary Medical History: Reports: Asthma, Bronchitis, Chronic Obstructive Pulmonary Disease (COPD) Endocrine Medical History: Reports: Diabetes Mellitus Type 2 Musculoskeltal Medical History: Denies: Gout Psychiatric Medical History: Reports: Depression Past Surgical History Past Surgical History: Reports: Section, Cholecystectomy, Gastric Bypass Surgery, Tonsillectomy Social History Smoking Status: Current Every Day Smoker Last Time Smoked: 08/20/18 Frequency of Alcohol Use: Heavy Hx Recreational Drug Use: No Drugs: None Hx Prescription Drug Abuse: No Family History Family History: Reviewed & Not Pertinent, CAD, Malignancy Parental Family History Reviewed: Yes Children Family History Reviewed: Yes Sibling(s) Family History Reviewed.: Yes Medication/Allergy Home Medications: Phentermine HCl 37.5 mg PO DAILY 08/12/17 Escitalopram Oxalate [Lexapro] 40 mg PO DAILY 01/10/18 Metformin HCl 500 mg PO BID 01/10/18 Trazodone HCl 50 mg PO DAILY 01/10/18 Oxycodone HCl [Oxycodone HCl 10 MG Tablet] 10 mg PO Q6HP PRN 08/20/18 Trazodone HCl [Desyrel] 100 mg PO HSP PRN 08/20/18 Allergies/Adverse Reactions: morphine [Morphine] Allergy (Verified 06/04/18 16:13) nitrofurantoin [From Macrobid] Allergy (Verified 06/04/18 16:13) nitrofurantoin macrocrystalline [From Macrobid] Allergy (Verified 06/04/18 16:13) Sulfa (Sulfonamide Antibiotics) Allergy (Verified 06/04/18 16:13) sulfamethoxazole [From Bactrim] Allergy (Verified 06/04/18 16:13) trimethoprim [From Bactrim] Allergy (Verified 06/04/18 16:13) red ants Allergy (Severe, Uncoded 06/04/18 16:13) Anaphylaxis bees Allergy (Uncoded 06/04/18 16:13) Review of Systems Review of Systems: as per hpi Physical Exam Vital Signs: Temp Pulse Resp BP Pulse Ox 98.8 F 102 H 18 106/65 98 08/20/18 17:31 08/20/18 17:31 08/20/18 17:31 08/20/18 17:31 08/20/18 17:31 Intake & Output 08/19/18 08/20/18 08/21/18 06:59 06:59 06:59 Intake Total 2290 Balance 2290 Weight 96.2 kg General appearance: PRESENT: obese Neck exam: ABSENT: carotid bruit, JVD, lymphadenopathy, thyromegaly Respiratory exam: PRESENT: clear to auscultation kristina. ABSENT: rales, rhonchi, wheezes Cardiovascular exam: PRESENT: RRR. ABSENT: diastolic murmur, rubs, systolic murmur GI/Abdominal exam: PRESENT: normal bowel sounds, soft. ABSENT: distended, guarding, mass, organolmegaly, rebound, tenderness Extremities exam: PRESENT: full ROM. ABSENT: calf tenderness, clubbing, pedal edema Neurological exam: PRESENT: alert, awake, oriented to person, oriented to place, oriented to time, oriented to situation, CN II-XII grossly intact. ABSENT: motor sensory deficit Skin exam: PRESENT: other - Rt gluteal abscess 2.0 x 2.0 cm just lateral to anal verge with fluctuance and mild surrounding erythema and 2 overlying open wounds without drainage or bleeding. Results Laboratory Results: 08/20/18 08:30 08/20/18 08:30 08/20/18 08/20/18 08/20/18 08:30 08:30 08:30 WBC 8.9 RBC 2.35 L Hgb 8.2 L Hct 24.5 L MCV 104 H MCH 35.0 H MCHC 33.5 RDW 19.5 H Plt Count 132 L Seg Neutrophils % 65.3 Lymphocytes % 24.6 Monocytes % 7.9 Eosinophils % 1.9 Basophils % 0.3 Absolute Neutrophils 5.8 Absolute Lymphocytes 2.2 Absolute Monocytes 0.7 Absolute Eosinophils 0.2 Absolute Basophils 0.0 VBG pH VBG pCO2 VBG HCO3 VBG Base Excess Sodium 138.4 Potassium 3.9 Chloride 102 Carbon Dioxide 21 L Anion Gap 15 BUN 3 L Creatinine 0.54 Est GFR ( Amer) > 60 Est GFR (Non-Af Amer) > 60 Glucose 160 H Lactic Acid 7.8 H Calcium 9.1 Total Bilirubin 1.3 AST 54 H ALT 27 Alkaline Phosphatase 137 H Total Protein 6.3 Albumin 2.7 L Urine Color Urine Appearance Urine pH Ur Specific [place] Urine Protein Urine Glucose (UA) Urine Ketones Urine Blood Urine Nitrite Ur Leukocyte Esterase Urine WBC (Auto) Urine RBC (Auto) 08/20/18 08/20/18 08/20/18 09:01 10:15 15:01 WBC RBC Hgb Hct MCV MCH MCHC RDW Plt Count Seg Neutrophils % Lymphocytes % Monocytes % Eosinophils % Basophils % Absolute Neutrophils Absolute Lymphocytes Absolute Monocytes Absolute Eosinophils Absolute Basophils VBG pH 7.34 VBG pCO2 40.5 VBG HCO3 21.3 VBG Base Excess -4.2 Sodium Potassium Chloride Carbon Dioxide Anion Gap BUN Creatinine Est GFR ( Amer) Est GFR (Non-Af Amer) Glucose Lactic Acid 4.9 H Calcium Total Bilirubin AST ALT Alkaline Phosphatase Total Protein Albumin Urine Color YELLOW Urine Appearance CLOUDY Urine pH 6.0 Ur Specific [place] 1.005 Urine Protein NEGATIVE Urine Glucose (UA) NEGATIVE Urine Ketones NEGATIVE Urine Blood NEGATIVE Urine Nitrite POSITIVE H Ur Leukocyte Esterase NEGATIVE Urine WBC (Auto) 8 Urine RBC (Auto) 10 Impressions: Pelvis CT 08/20/18 07:39 IMPRESSION: NO SIGNIFICANT OR ACUTE FINDINGS IN THE PELVIS. NO EVIDENCE OF PERIANAL OR PERIRECTAL ABSCESS. Assessment and Plan - Diagnosis (1) Sepsis Qualifiers: Sepsis type: sepsis due to unspecified organism Qualified Code(s): A41.9 - Sepsis, unspecified organism Is this a current diagnosis for this admission?: Yes Plan: Evidenced by lactic acid 7.8 T-max 99.9. SBP 99/77, SPO2 75% RA. Likely due to underlying combination of UTI and gluteal cellulitis. Volume resuscitation guided by volume status, empiric IV antibiotics, wound care, wound culture, blood culture, UA urine culture. Trend lactic acid. (2) Acute and chronic respiratory failure with hypoxia Is this a current diagnosis for this admission?: Yes Plan: Most likely due to #1. BiPAP, supplemental oxygen, nebs. (3) UTI (urinary tract infection) Is this a current diagnosis for this admission?: Yes Plan: Likely due to gram-negative rods including E. coli. 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 Empiric IV antibiotics, urine culture. (4) Cellulitis, gluteal Is this a current diagnosis for this admission?: Yes Plan: History of present right gluteal abscess status post drainage in ED. Likely polymicrobial description phi and fecal contamination. Empiric IV antibiotics, blood culture, wound culture, wound care. (6) Hypomagnesemia Is this a current diagnosis for this admission?: Yes Plan: Replace as needed. (7) Hypokalemia Is this a current diagnosis for this admission?: Yes Plan: Replace as needed. (8) Lactic acidosis Is this a current diagnosis for this admission?: Yes Plan: Due to #1. As above. (9) Tobacco dependency Is this a current diagnosis for this admission?: No Plan: Start on NicoDerm patch.
[2018-08-20] MEDS: IPRATROPIUM/ALBUTEROL 0.5-2.5 MG/3 ML AMPUL NEB SCH (21:06)
--- NOTE | 2018-08-20 22:11 | EKG REPORT ---
SEVERITY:- ABNORMAL ECG - SINUS RHYTHM PROLONGED QT INTERVAL : Confirmed by: Mac Elias MD 20-Aug-2018 22:11:00
[2018-08-20] MEDS: FAMOTIDINE 20 MG TABLET PO SCH (22:36)
[2018-08-21] MEDS: NORMAL SALINE 1000 ML 1,000 ML IV PRN ×4 (00:50→17:55)
[2018-08-21] MEDS: KETOROLAC TROMETHAMINE INJ/PF 30 MG/1 ML SDV IV PRN ×2 (01:22→07:58)
[2018-08-21 05:02] LABS: ABSOLUTE EOSINOPHILS # (AUTO) 0.1 10^3/uL (0.0-0.6); ABSOLUTE LYMPHOCYTES (AUTO) 1.5 10^3/uL (0.5-4.7); ABSOLUTE MONOCYTES (AUTO) 0.5 10^3/uL (0.1-1.4); ABSOLUTE NEUT (AUTO) 5.3 10^3/uL (1.7-8.2); BASOPHILS % (AUTO) 0.4 % (0-2); EOSINOPHILS % (AUTO) 1.7 % (0-6); HEMATOCRIT 23.7 % (36.0-47.0); LYMPHOCYTES % (AUTO) 20.8 % (13-45); MEAN CORPUSCULAR HEMOGLOBIN 34.8 pg (27.0-33.4); MEAN CORPUSCULAR HGB CONC 33.6 g/dL (32.0-36.0); MEAN CORPUSCULAR VOLUME 104 fl (80-97); MONOCYTES % (AUTO) 6.3 % (3-13); PLATELET COUNT 117 10^3/uL (150-450); RED BLOOD COUNT 2.29 10^6/uL (3.72-5.28); RED CELL DISTRIBUTION WIDTH 18.9 % (11.5-14.0); SEGMENTED NEUTROPHILS % (AUTO) 70.8 % (42-78); TOTAL CELLS COUNTED % (AUTO) 100 %; WHITE BLOOD COUNT 7.4 10^3/uL (4.0-10.5)
[2018-08-21 05:26] LABS: ANION GAP 8 (5-19); BLOOD UREA NITROGEN 4 mg/dL (7-20); CALCIUM 7.7 mg/dL (8.4-10.2); CARBON DIOXIDE 22 mmol/L (22-30); CHLORIDE 107 mmol/L (98-107); GLUCOSE 119 mg/dL (75-110); SODIUM 136.7 mmol/L (137-145)
[2018-08-21] MEDS ORDERED: POTASSIUM CHLORIDE 10 MEQ CAPSULE.ER PO ONE (07:00)
[2018-08-21] MEDS: POTASSIUM CHLORIDE 20 MEQ/50 ML RTU IV SCH ×2 (07:01→08:12)
[2018-08-21] MEDS: MAGNESIUM SULFATE/D5W 1 GM/100 ML RTUPB IV SCH ×3 (08:09→10:28)
[2018-08-21] MEDS: IPRATROPIUM/ALBUTEROL 0.5-2.5 MG/3 ML AMPUL NEB SCH ×3 (08:11→20:27)
[2018-08-21] MEDS: METOCLOPRAMIDE HCL INJ/PF 10 MG/2 ML SDV IV SCH ×4 (08:11→21:46)
[2018-08-21] MEDS: ENOXAPARIN SODIUM INJ 40 MG/0.4 ML DISP.SYRIN SUBCUT SCH (09:28)
[2018-08-21] MEDS: FAMOTIDINE 20 MG TABLET PO SCH ×2 (09:28→21:44)
[2018-08-21] MEDS: DOCUSATE SODIUM 100 MG CAPSULE PO SCH (09:29)
[2018-08-21] MEDS ORDERED: CEFTRIAXONE 1 GM/D5W RTU 1 GM/50 ML RTUPB IV SCH (15:30)
[2018-08-21] MEDS ORDERED: (PENDING PHARMACY ID) (Escitalopram Oxalate [Lexapro] 40 MG) PO SCH (15:30)
[2018-08-21] MEDS: TRAZODONE HCL 50 MG TABLET PO SCH (16:10)
[2018-08-21] MEDS: NICOTINE 7 MG/24 HR PATCH.TD24 TD SCH (16:10)
[2018-08-21] MEDS: FOLIC ACID/VITAMIN B COMP W-C CAPSULE PO SCH (16:10)
[2018-08-21] MEDS: ESCITALOPRAM OXALATE 10 MG TABLET PO SCH (16:10)
[2018-08-21] MEDS ORDERED: DEXTROSE 50%-WATER 25 GM/50 ML DISP.SYRIN IV PRN ×2 (17:41)
[2018-08-21] MEDS ORDERED: DEXTROSE 40% GEL 15 GM TUBE PO PRN ×2 (17:41)
[2018-08-21] MEDS ORDERED: GLUCAGON,HUMAN RECOMB 1 MG INJ IM PRN (17:41)
[2018-08-21] MEDS: CEFTRIAXONE SODIUM 1,000 MG in DEXTROSE 5%-WATER 50 ML IV SCH (17:58)
--- NOTE | 2018-08-21 18:46 | PDOC PROGRESS REPORT ---
Subjective Progress Note for:: 08/21/18 Subjective:: 48-year-old female has medical history of obesity, hypertension, asthma, COPD, diabetes, EtOH abuse, tobacco abuse, depression, anxiety, diabetes, who had recently visited ED for drainage of left gluteal abscess, and was sent home on oral antibiotics, patient was doing fine until she noticed drainage and pain on the right gluteal region. Initial impression was recurrent abscess, CT pelvis and bedside ultrasound in ED not show any drainable collection, was negative for any air consistent with necrotizing fasciitis. Was noted to be hypotensive, elevated lactic acid and leukocytosis. She was started on volume resuscitation and IV empiric antibiotics and hospital was consulted for admission. 08/21/2018. Blood pressure stable, complaining of anxiety and generalized weakness and persistent gluteal pain. Reason For Visit: UTI, CELLULITIS, SEPSIS Physical Exam Vital Signs: Temp Pulse Resp BP Pulse Ox 98.3 F 98 16 109/59 L 97 08/21/18 11:02 08/21/18 14:40 08/21/18 14:40 08/21/18 11:02 08/21/18 14:40 Intake & Output 08/20/18 08/21/18 08/22/18 06:59 06:59 06:59 Intake Total 6450 2668 Balance 6450 2668 Weight 96.2 kg 90.4 kg General appearance: PRESENT: no acute distress, morbidly obese Head exam: PRESENT: atraumatic, normocephalic Respiratory exam: PRESENT: clear to auscultation kristina. ABSENT: rales, rhonchi, wheezes Cardiovascular exam: PRESENT: RRR. ABSENT: diastolic murmur, rubs, systolic murmur GI/Abdominal exam: PRESENT: normal bowel sounds, soft. ABSENT: distended, guarding, mass, organolmegaly, rebound, tenderness Neurological exam: PRESENT: alert, awake, oriented to person, oriented to place, oriented to time, oriented to situation, CN II-XII grossly intact. ABSENT: motor sensory deficit Results Laboratory Results: 08/21/18 04:39 08/21/18 04:39 08/20/18 08/21/18 08/21/18 20:51 04:39 04:39 WBC 7.4 RBC 2.29 L Hgb 8.0 L Hct 23.7 L MCV 104 H MCH 34.8 H MCHC 33.6 RDW 18.9 H Plt Count 117 L Seg Neutrophils % 70.8 Lymphocytes % 20.8 Monocytes % 6.3 Eosinophils % 1.7 Basophils % 0.4 Absolute Neutrophils 5.3 Absolute Lymphocytes 1.5 Absolute Monocytes 0.5 Absolute Eosinophils 0.1 Absolute Basophils 0.0 Sodium 136.7 L Potassium 3.0 L* Chloride 107 Carbon Dioxide 22 Anion Gap 8 BUN 4 L Creatinine 0.47 L Est GFR ( Amer) > 60 Est GFR (Non-Af Amer) > 60 Glucose 119 H Lactic Acid 2.4 H Calcium 7.7 L Magnesium 1.1 L* Impressions: Pelvis CT 08/20/18 07:39 IMPRESSION: NO SIGNIFICANT OR ACUTE FINDINGS IN THE PELVIS. NO EVIDENCE OF PERIANAL OR PERIRECTAL ABSCESS. Assessment and Plan - Diagnosis (1) Sepsis Qualifiers: Sepsis type: sepsis due to unspecified organism Qualified Code(s): A41.9 - Sepsis, unspecified organism Is this a current diagnosis for this admission?: Yes Plan: Improving. Evidenced by lactic acid 7.8 T-max 99.9. SBP 99/77, SPO2 75% RA. Likely due to underlying combination of UTI and gluteal cellulitis. Volume resuscitation guided by volume status, empiric IV antibiotics, wound care, wound culture, blood culture, UA urine culture. Lactic acid tending down. (2) Acute and chronic respiratory failure with hypoxia Is this a current diagnosis for this admission?: Yes Plan: Most likely due to #1. BiPAP, supplemental oxygen, nebs. (3) Cellulitis, gluteal Is this a current diagnosis for this admission?: Yes Plan: History of present right gluteal abscess status post drainage in ED. Likely polymicrobial description phi and fecal contamination. Empiric IV antibiotics, blood culture, wound culture, wound care. (4) Diabetes type 2, controlled Is this a current diagnosis for this admission?: No Plan: Takes metformin as outpatient. Diabetic diet, sliding scale insulin, pre-meal insulin, long-acting insulin, adjust dose as needed. (5) Lactic acidosis Is this a current diagnosis for this admission?: Yes Plan: Due to #1. As above. (6) UTI (urinary tract infection) Is this a current diagnosis for this admission?: Yes Plan: Likely due to gram-negative rods including E. coli. 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 Empiric IV antibiotics, urine culture. (7) Tobacco dependency Is this a current diagnosis for this admission?: No Plan: Start on NicoDerm patch. (8) Anemia Is this a current diagnosis for this admission?: No Plan: Chronic. Baseline hemoglobin 10-12. Denies any melena, hematemesis, hemoptysis, hematochezia, vaginal bleeding, easy bruising, nosebleeds. Stool guaiac, iron studies, transfuse 2 PRBC. Supportive transfusion, transfuse if less than 7, actively bleeding or antibiotic.
[2018-08-21] MEDS: CLINDAMYCIN 600 MG/D5W RTU 600 MG/50 ML RTUPB IV SCH (21:43)
[2018-08-21] MEDS: OXYCODONE HCL IR 5 MG TABLET PO PRN (21:44)
[2018-08-21] MEDS: INSULIN LISPRO 100 UNIT/ML 3 ML VIAL SUBCUT SCH (21:45)
[2018-08-21] MEDS: BUSPIRONE HCL 10 MG TABLET PO SCH (21:46)
[2018-08-22] MEDS: ZOLPIDEM TARTRATE 5 MG TABLET PO PRN ×2 (01:08→21:51)
[2018-08-22 05:04] LABS: ABSOLUTE EOSINOPHILS # (AUTO) 0.1 10^3/uL (0.0-0.6); ABSOLUTE LYMPHOCYTES (AUTO) 1.4 10^3/uL (0.5-4.7); ABSOLUTE MONOCYTES (AUTO) 0.5 10^3/uL (0.1-1.4); ABSOLUTE NEUT (AUTO) 7.4 10^3/uL (1.7-8.2); BASOPHILS % (AUTO) 0.5 % (0-2); EOSINOPHILS % (AUTO) 1.1 % (0-6); HEMATOCRIT 23.5 % (36.0-47.0); LYMPHOCYTES % (AUTO) 14.7 % (13-45); MEAN CORPUSCULAR HEMOGLOBIN 34.4 pg (27.0-33.4); MEAN CORPUSCULAR HGB CONC 32.9 g/dL (32.0-36.0); MEAN CORPUSCULAR VOLUME 105 fl (80-97); MONOCYTES % (AUTO) 5.6 % (3-13); PLATELET COUNT 112 10^3/uL (150-450); RED BLOOD COUNT 2.24 10^6/uL (3.72-5.28); RED CELL DISTRIBUTION WIDTH 19.1 % (11.5-14.0); SEGMENTED NEUTROPHILS % (AUTO) 78.1 % (42-78); TOTAL CELLS COUNTED % (AUTO) 100 %; WHITE BLOOD COUNT 9.5 10^3/uL (4.0-10.5)
[2018-08-22 05:07] LABS: HEMOGLOBIN 7.7 g/dL (12.0-15.5)
[2018-08-22 05:24] LABS: ANION GAP 8 (5-19); CALCIUM 7.3 mg/dL (8.4-10.2); CARBON DIOXIDE 19 mmol/L (22-30); CHLORIDE 107 mmol/L (98-107); GLUCOSE 147 mg/dL (75-110); POTASSIUM 3.3 mmol/L (3.6-5.0)
[2018-08-22 05:26] LABS: BLOOD UREA NITROGEN < 2 mg/dL (7-20)
[2018-08-22] MEDS: CLINDAMYCIN 600 MG/D5W RTU 600 MG/50 ML RTUPB IV SCH ×2 (05:41→14:49)
[2018-08-22] MEDS: NORMAL SALINE 1000 ML 1,000 ML IV PRN (05:41)
[2018-08-22] MEDS ORDERED: POTASSIUM CHLORIDE 10 MEQ CAPSULE.ER PO ONE (07:40)
[2018-08-22] MEDS ORDERED: MAGNESIUM SULFATE/D5W 1 GM/100 ML RTUPB IV ONE (07:40)
[2018-08-22] MEDS ORDERED: NYSTATIN/DEXAMETH/DIPHEN SUSP 120 ML PO ONE (07:45)
[2018-08-22] MEDS: INSULIN LISPRO 100 UNIT/ML 3 ML VIAL SUBCUT SCH ×4 (08:10→21:51)
[2018-08-22] MEDS: OXYCODONE HCL IR 5 MG TABLET PO PRN ×3 (08:11→21:50)
[2018-08-22] MEDS: METOCLOPRAMIDE HCL INJ/PF 10 MG/2 ML SDV IV SCH ×2 (08:12→12:02)
[2018-08-22] MEDS: IPRATROPIUM/ALBUTEROL 0.5-2.5 MG/3 ML AMPUL NEB SCH ×3 (09:35→20:36)
[2018-08-22] MEDS: TRAZODONE HCL 50 MG TABLET PO SCH (10:20)
[2018-08-22] MEDS: FAMOTIDINE 20 MG TABLET PO SCH ×2 (10:20→21:50)
[2018-08-22] MEDS: BUSPIRONE HCL 10 MG TABLET PO SCH ×2 (10:20→21:51)
[2018-08-22] MEDS: ENOXAPARIN SODIUM INJ 40 MG/0.4 ML DISP.SYRIN SUBCUT SCH (10:20)
[2018-08-22] MEDS: ESCITALOPRAM OXALATE 10 MG TABLET PO SCH (10:21)
[2018-08-22] MEDS: NICOTINE 7 MG/24 HR PATCH.TD24 TD SCH (10:21)
[2018-08-22] MEDS: NYSTATIN/DEXAMETH/DIPHEN SUSP 120 ML PO SCH ×4 (10:24→21:52)
[2018-08-22] MEDS: DOCUSATE SODIUM 100 MG CAPSULE PO SCH (10:25)
[2018-08-22] MEDS ORDERED: METOCLOPRAMIDE HCL INJ/PF 10 MG/2 ML SDV IV PRN (11:59)
[2018-08-22] MEDS: NICOTINE 21 MG/24 HR PATCH.TD24 TD SCH (13:05)
[2018-08-22] MEDS ORDERED: NORMAL SALINE 250 ML IV PRN ×2 (17:20)
--- NOTE | 2018-08-22 17:28 | PDOC PROGRESS REPORT ---
Subjective Progress Note for:: 08/22/18 Subjective:: 48-year-old female has medical history of obesity, hypertension, asthma, COPD, diabetes, EtOH abuse, tobacco abuse, depression, anxiety, diabetes, who had recently visited ED for drainage of left gluteal abscess, and was sent home on oral antibiotics, patient was doing fine until she noticed drainage and pain on the right gluteal region. Initial impression was recurrent abscess, CT pelvis and bedside ultrasound in ED not show any drainable collection, was negative for any air consistent with necrotizing fasciitis. Was noted to be hypotensive, elevated lactic acid and leukocytosis. She was started on volume resuscitation and IV empiric antibiotics and hospital was consulted for admission. No acute events overnight. Reason For Visit: UTI, CELLULITIS, SEPSIS Physical Exam Vital Signs: Temp Pulse Resp BP Pulse Ox 98.3 F 110 H 18 110/93 H 93 08/22/18 15:43 08/22/18 15:43 08/22/18 15:43 08/22/18 15:43 08/22/18 15:43 Intake & Output 08/21/18 08/22/18 08/23/18 06:59 06:59 06:59 Intake Total 6450 5224 150 Balance 6450 5224 150 Weight 90.4 kg 107.2 kg General appearance: PRESENT: no acute distress, well-developed, well-nourished Head exam: PRESENT: atraumatic, normocephalic Respiratory exam: PRESENT: clear to auscultation kristina. ABSENT: rales, rhonchi, wheezes Cardiovascular exam: PRESENT: RRR. ABSENT: diastolic murmur, rubs, systolic murmur GI/Abdominal exam: PRESENT: normal bowel sounds, soft. ABSENT: distended, guarding, mass, organolmegaly, rebound, tenderness Neurological exam: PRESENT: alert, awake, oriented to person, oriented to place, oriented to time, oriented to situation, CN II-XII grossly intact. ABSENT: motor sensory deficit Skin exam: PRESENT: other - Gluteal cellulitis improving, no active discharge. Results Laboratory Results: 08/22/18 04:49 08/22/18 04:49 08/22/18 08/22/18 04:49 04:49 WBC 9.5 RBC 2.24 L Hgb 7.7 L Hct 23.5 L MCV 105 H MCH 34.4 H MCHC 32.9 RDW 19.1 H Plt Count 112 L Seg Neutrophils % 78.1 H Lymphocytes % 14.7 Monocytes % 5.6 Eosinophils % 1.1 Basophils % 0.5 Absolute Neutrophils 7.4 Absolute Lymphocytes 1.4 Absolute Monocytes 0.5 Absolute Eosinophils 0.1 Absolute Basophils 0.0 Sodium 134.0 L Potassium 3.3 L Chloride 107 Carbon Dioxide 19 L Anion Gap 8 BUN < 2 L Creatinine 0.43 L Est GFR ( Amer) > 60 Est GFR (Non-Af Amer) > 60 Glucose 147 H Calcium 7.3 L Magnesium 1.5 L 08/20/18 09:01 Clean Catch Midstream Urine Culture - Final Klebsiella Pneumoniae Impressions: Pelvis CT 08/20/18 07:39 IMPRESSION: NO SIGNIFICANT OR ACUTE FINDINGS IN THE PELVIS. NO EVIDENCE OF PERIANAL OR PERIRECTAL ABSCESS. Assessment and Plan - Diagnosis (1) Sepsis Qualifiers: Sepsis type: sepsis due to unspecified organism Qualified Code(s): A41.9 - Sepsis, unspecified organism Is this a current diagnosis for this admission?: Yes Plan: Resolved. Evidenced by lactic acid 7.8 T-max 99.9. SBP 99/77, SPO2 75% RA. Likely due to underlying combination of UTI and gluteal cellulitis. Volume resuscitation guided by volume status, empiric IV antibiotics, wound care, wound culture, blood culture, UA urine culture. Lactic acid tending down. (2) Acute and chronic respiratory failure with hypoxia Is this a current diagnosis for this admission?: Yes Plan: Resolved. Most likely due to #1. BiPAP, supplemental oxygen, nebs. (3) Cellulitis, gluteal Is this a current diagnosis for this admission?: Yes Plan: History of present right gluteal abscess status post drainage in ED. Likely polymicrobial description phi and fecal contamination. DC clindamycin. Continue IV ceftriaxone. Wound culture positive for gram-negative rods, pending sensitivity. Switch to p.o. antibiotics once sensitivity available. (4) Diabetes type 2, controlled Is this a current diagnosis for this admission?: No Plan: Takes metformin as outpatient. Diabetic diet, sliding scale insulin, pre-meal insulin, long-acting insulin, adjust dose as needed. (5) Lactic acidosis Is this a current diagnosis for this admission?: Yes Plan: Due to #1. As above. (6) UTI (urinary tract infection) Is this a current diagnosis for this admission?: Yes Plan: Urine culture positive for Klebsiella pansensitive. 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 Day 2 IV ceftriaxone. (7) Tobacco dependency Is this a current diagnosis for this admission?: No Plan: Start on NicoDerm patch. (8) Anemia Is this a current diagnosis for this admission?: No Plan: Chronic. Baseline hemoglobin 10-12. Denies any melena, hematemesis, hemoptysis, hematochezia, vaginal bleeding, easy bruising, nosebleeds. Stool guaiac, iron studies, transfuse 2 PRBC. Supportive transfusion, transfuse if less than 7, actively bleeding or antibiotic.
[2018-08-22] MEDS: CEFTRIAXONE SODIUM 1,000 MG in DEXTROSE 5%-WATER 50 ML IV SCH (17:33)
[2018-08-22] MEDS: FOLIC ACID/VITAMIN B COMP W-C CAPSULE PO SCH (17:33)
[2018-08-22 18:03] LABS: ABSOLUTE RETICS # 0.072 10^6/uL (0.028-0.122); RETICULOCYTE COUNT (AUTO) 2.98 % (0.66-2.85)
[2018-08-22 18:17] LABS: IRON(TIBC) 46.2 ug/dL (37-170)
[2018-08-22 19:25] LABS: FOLATE 8.15 ng/mL (>2.76)
[2018-08-23] MEDS: OXYCODONE HCL IR 5 MG TABLET PO PRN ×4 (04:06→23:11)
[2018-08-23] MEDS: LORAZEPAM INJ 2 MG/1 ML VIAL IV PRN ×3 (05:23→23:07)
[2018-08-23 06:18] LABS: ABSOLUTE BASOPHILS # (AUTO) 0.1 10^3/uL (0.0-0.2); ABSOLUTE EOSINOPHILS # (AUTO) 0.1 10^3/uL (0.0-0.6); ABSOLUTE LYMPHOCYTES (AUTO) 1.4 10^3/uL (0.5-4.7); ABSOLUTE MONOCYTES (AUTO) 0.9 10^3/uL (0.1-1.4); ABSOLUTE NEUT (AUTO) 9.5 10^3/uL (1.7-8.2); BASOPHILS % (AUTO) 1.2 % (0-2); EOSINOPHILS % (AUTO) 0.8 % (0-6); HEMATOCRIT 24.3 % (36.0-47.0); LYMPHOCYTES % (AUTO) 11.7 % (13-45); MEAN CORPUSCULAR HEMOGLOBIN 34.9 pg (27.0-33.4); MEAN CORPUSCULAR HGB CONC 32.9 g/dL (32.0-36.0); MEAN CORPUSCULAR VOLUME 106 fl (80-97); MONOCYTES % (AUTO) 7.1 % (3-13); PLATELET COUNT 103 10^3/uL (150-450); RED BLOOD COUNT 2.29 10^6/uL (3.72-5.28); SEGMENTED NEUTROPHILS % (AUTO) 79.2 % (42-78); TOTAL CELLS COUNTED % (AUTO) 100 %
[2018-08-23 06:30] LABS: ALANINE AMINOTRANSFERASE 30 U/L (9-52); ALBUMIN 2.3 g/dL (3.5-5.0); ALKALINE PHOSPHATASE 120 U/L (38-126); ANION GAP 7 (5-19); ASPARTATE AMINO TRANSFERASE 59 U/L (14-36); CALCIUM 7.7 mg/dL (8.4-10.2); CARBON DIOXIDE 21 mmol/L (22-30); CHLORIDE 106 mmol/L (98-107); GLUCOSE 143 mg/dL (75-110); PHOSPHORUS 1.9 mg/dL (2.5-4.5); POTASSIUM 3.8 mmol/L (3.6-5.0); SODIUM 134.3 mmol/L (137-145); TOTAL PROTEIN 5.8 g/dL (6.3-8.2)
[2018-08-23 06:34] LABS: BLOOD UREA NITROGEN < 2 mg/dL (7-20)
[2018-08-23] MEDS ORDERED: (PENDING PHARMACY ID) (Trazodone Hcl [Desyrel] 100 MG) PO PRN (07:17)
[2018-08-23] MEDS: MAGNESIUM SULFATE/D5W 1 GM/100 ML RTUPB IV SCH ×2 (08:15→09:08)
[2018-08-23] MEDS: INSULIN LISPRO 100 UNIT/ML 3 ML VIAL SUBCUT SCH ×4 (08:17→23:09)
--- NOTE | 2018-08-23 08:36 | PDOC PROGRESS REPORT ---
Subjective Progress Note for:: 08/23/18 Subjective:: 48-year-old female has medical history of obesity, hypertension, asthma, COPD, diabetes, EtOH abuse, tobacco abuse, depression, anxiety, diabetes, who had recently visited ED for drainage of left gluteal abscess, and was sent home on oral antibiotics, patient was doing fine until she noticed drainage and pain on the right gluteal region. Initial impression was recurrent abscess, CT pelvis and bedside ultrasound in ED not show any drainable collection, was negative for any air consistent with necrotizing fasciitis. Was noted to be hypotensive, elevated lactic acid and leukocytosis. She was started on volume resuscitation and IV empiric antibiotics and hospital was consulted for admission. 08/23/2018-no acute events in the last 24 hours. Afebrile. T-max is 98.7. Blood pressure is 117/65. Obese female in the bed complaining of pain scale of 5 x 10. Presently and she is on OxyIR. She has recent history of IND of the right gluteal abscess. Receiving IV antibiotic therapy Rocephin. Urine culture came back positive for Klebsiella and Pseudomonas and buttock cultures came back gram-negative rods and group B streptococcus. INR is 1.22. Magnesium is 1.5 which is going to be supplemented. Patient's main concern is pain now. Reason For Visit: UTI, CELLULITIS, SEPSIS Physical Exam Vital Signs: Temp Pulse Resp BP Pulse Ox 98.7 F 109 H 26 H 117/65 94 08/23/18 04:44 08/23/18 04:44 08/23/18 04:44 08/23/18 04:44 08/23/18 04:44 Intake & Output 08/22/18 08/23/18 08/24/18 06:59 06:59 06:59 Intake Total 5224 250 Balance 5224 250 Weight 107.2 kg 106.2 kg General appearance: PRESENT: mild distress, obese Head exam: PRESENT: atraumatic Eye exam: PRESENT: PERRLA Neck exam: ABSENT: carotid bruit, JVD, lymphadenopathy, thyromegaly Respiratory exam: PRESENT: clear to auscultation kristina. ABSENT: rales, rhonchi, wheezes Cardiovascular exam: PRESENT: RRR. ABSENT: diastolic murmur, rubs, systolic murmur GI/Abdominal exam: PRESENT: normal bowel sounds, soft. ABSENT: distended, guarding, mass, organolmegaly, rebound, tenderness Rectal exam: PRESENT: deferred Extremities exam: PRESENT: full ROM. ABSENT: calf tenderness, clubbing, pedal edema Neurological exam: PRESENT: alert, awake, oriented to person, oriented to place, oriented to time, oriented to situation, CN II-XII grossly intact. ABSENT: motor sensory deficit Psychiatric exam: PRESENT: appropriate affect, normal mood. ABSENT: homicidal ideation, suicidal ideation Results Laboratory Results: 08/23/18 05:39 08/23/18 05:39 08/22/18 08/22/18 08/22/18 17:49 17:49 17:49 WBC RBC Hgb Hct MCV MCH MCHC RDW Plt Count Seg Neutrophils % Lymphocytes % Monocytes % Eosinophils % Basophils % Absolute Neutrophils Absolute Lymphocytes Absolute Monocytes Absolute Eosinophils Absolute Basophils Retic Count (auto) 2.98 H Absolute Retic 0.072 Sodium Potassium Chloride Carbon Dioxide Anion Gap BUN Creatinine Est GFR ( Amer) Est GFR (Non-Af Amer) Glucose Calcium Phosphorus Magnesium Iron 46.2 TIBC 228 L % Saturation 20 Ferritin 71.10 Total Bilirubin AST ALT Alkaline Phosphatase Total Protein Albumin Vitamin B12 > 1000.0 H Folate 8.15 Stool Occult Blood Blood Type O POSITIVE Antibody Screen NEGATIVE 08/22/18 08/23/18 08/23/18 22:38 05:39 05:39 WBC 12.0 H RBC 2.29 L Hgb 8.0 L Hct 24.3 L MCV 106 H MCH 34.9 H MCHC 32.9 RDW 19.0 H Plt Count 103 L Seg Neutrophils % 79.2 H Lymphocytes % 11.7 L Monocytes % 7.1 Eosinophils % 0.8 Basophils % 1.2 Absolute Neutrophils 9.5 H Absolute Lymphocytes 1.4 Absolute Monocytes 0.9 Absolute Eosinophils 0.1 Absolute Basophils 0.1 Retic Count (auto) Absolute Retic Sodium 134.3 L Potassium 3.8 Chloride 106 Carbon Dioxide 21 L Anion Gap 7 BUN < 2 L Creatinine 0.43 L Est GFR ( Amer) > 60 Est GFR (Non-Af Amer) > 60 Glucose 143 H Calcium 7.7 L Phosphorus 1.9 L Magnesium 1.5 L Iron TIBC % Saturation Ferritin Total Bilirubin 2.0 H AST 59 H ALT 30 Alkaline Phosphatase 120 Total Protein 5.8 L Albumin 2.3 L Vitamin B12 Folate Stool Occult Blood POSITIVE Blood Type Antibody Screen 08/20/18 18:10 Buttocks - Left Side Abscess Gram Stain - Final 08/20/18 18:10 Buttocks - Left Side Abscess Wound Culture - Final Klebsiella Pneumoniae Citrobacter Koseri Group B Beta Streptococcus 08/20/18 09:01 Clean Catch Midstream Urine Culture - Final Klebsiella Pneumoniae Impressions: Pelvis CT 08/20/18 07:39 IMPRESSION: NO SIGNIFICANT OR ACUTE FINDINGS IN THE PELVIS. NO EVIDENCE OF PERIANAL OR PERIRECTAL ABSCESS. Assessment and Plan - Diagnosis (1) Sepsis Qualifiers: Sepsis type: sepsis due to unspecified organism Qualified Code(s): A41.9 - Sepsis, unspecified organism Is this a current diagnosis for this admission?: Yes Plan: Resolved. Evidenced by lactic acid 7.8 T-max 99.9. SBP 99/77, SPO2 75% RA. Likely due to underlying combination of UTI and gluteal cellulitis. Volume resuscitation guided by volume status, empiric IV antibiotics, wound care, wound culture, blood culture, UA urine culture. Lactic acid tending down. 08/23/2018-patient came in with sepsis with elevated lactic acid levels, hypotension respiratory failure with hypoxia and a T-max of 100. Hypotension is resolved hypoxia resolved pulse ox is 96% on room air. Presently on IV Rocephin. Cultures came back positive for gram-negative rods and group A streptococcus from the wound and urine culture is positive for Klebsiella and Pseudomonas. Presently on IV Rocephin. IV levo floxacillin is added to the medication. Latest lactic acid level is 2.4. Latest WBC count is 12,000 and plan is to repeat the labs tomorrow. Surgical consult is going to be requested. (2) Acute and chronic respiratory failure with hypoxia Is this a current diagnosis for this admission?: Yes Plan: Resolved. Most likely due to #1. BiPAP, supplemental oxygen, nebs. 08/23/2018-patient admitted with acute on chronic respiratory failure with hypoxia pulse ox is 75% in the emergency room she was on BiPAP and started on nebulizer treatments. Pulse ox is 94% on room air today. Plan is to do the chest x-ray today. (3) Cellulitis, gluteal Is this a current diagnosis for this admission?: Yes Plan: History of present right gluteal abscess status post drainage in ED. Likely polymicrobial description phi and fecal contamination. DC clindamycin. Continue IV ceftriaxone. Wound culture positive for gram-negative rods, pending sensitivity. Switch to p.o. antibiotics once sensitivity available. 08/23/2018-patient has history of right gluteal abscess status post I&D in the emergency room. On IV ceftriaxone. Cultures came back positive for gram- negative rods and group B streptococcus. Wound cultures were positive for Klebsiella, Citrobacter, repeat Streptococcus. IV levofloxacin added to the medication. Surgical consult is going to be requested for further evaluation. (4) Diabetes type 2, controlled Is this a current diagnosis for this admission?: No Plan: Takes metformin as outpatient. Diabetic diet, sliding scale insulin, pre-meal insulin, long-acting insulin, adjust dose as needed. 08/23/2018-patient's latest leukosis 143 and to check for hemoglobin A1c. Presently on diabetic diet/insulin sliding scale before meals and at bedtime along with pre-meal insulin and long-acting insulin. dietary Consult is going to be provided. (5) Hypomagnesemia Is this a current diagnosis for this admission?: Yes Plan: Replace as needed. 08/23/2018-patient serum magnesium is 1.5 to give IV magnesium 2 g today. To recheck the labs tomorrow. (6) Lactic acidosis Is this a current diagnosis for this admission?: Yes Plan: Due to #1. As above. 08/23/2018-patient came in with lactic acidosis initially 7.8 improved to 2.4 with IV fluids. Elevated lactic acid level most likely secondary to sepsis. (7) UTI (urinary tract infection) Is this a current diagnosis for this admission?: Yes Plan: Urine culture positive for Klebsiella pansensitive. 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 Day 2 IV ceftriaxone. 08/23/2018-urine culture is positive for Klebsiella she has recurrent history of UTI with Klebsiella. Presently on IV ceftriaxone, IV levo floxacillin is added to the medication. (8) Anemia Is this a current diagnosis for this admission?: No Plan: Chronic. Baseline hemoglobin 10-12. Denies any melena, hematemesis, hemoptysis, hematochezia, vaginal bleeding, easy bruising, nosebleeds. Stool guaiac, iron studies, transfuse 2 PRBC. Supportive transfusion, transfuse if less than 7, actively bleeding or antibiotic. 08/23/2018-patient has history of chronic anemia baseline hemoglobin is between 10-12. Today's hemoglobin is 8. 2 units of PRBC was given during the hospital stay. Acute anemia may be secondary to sepsis. No signs of any active blee ding. - Time Time Spent with patient: 15-24 minutes Medications reviewed and adjusted accordingly: Yes Anticipated discharge: Home
[2018-08-23] MEDS: IPRATROPIUM/ALBUTEROL 0.5-2.5 MG/3 ML AMPUL NEB SCH ×3 (08:39→20:39)
[2018-08-23] MEDS ORDERED: DEXTROSE 50%-WATER 25 GM/50 ML DISP.SYRIN IV PRN ×2 (08:54)
[2018-08-23] MEDS ORDERED: DEXTROSE 40% GEL 15 GM TUBE PO PRN (08:54)
[2018-08-23] MEDS ORDERED: GLUCAGON,HUMAN RECOMB 1 MG INJ SUBCUT PRN (08:54)
[2018-08-23] MEDS: NICOTINE 21 MG/24 HR PATCH.TD24 TD SCH (09:08)
[2018-08-23] MEDS: BUSPIRONE HCL 10 MG TABLET PO SCH ×2 (09:09→23:07)
[2018-08-23] MEDS: TRAZODONE HCL 50 MG TABLET PO SCH (09:09)
[2018-08-23] MEDS: DOCUSATE SODIUM 100 MG CAPSULE PO SCH (09:09)
[2018-08-23] MEDS: ESCITALOPRAM OXALATE 10 MG TABLET PO SCH (09:09)
[2018-08-23] MEDS: FAMOTIDINE 20 MG TABLET PO SCH ×2 (09:09→23:07)
[2018-08-23] MEDS: LEVOFLOXACIN 750 MG/D5W RTU 750 MG/150 ML RTUPB IV SCH (09:10)
[2018-08-23] MEDS: ENOXAPARIN SODIUM INJ 40 MG/0.4 ML DISP.SYRIN SUBCUT SCH (09:10)
[2018-08-23] MEDS: NYSTATIN/DEXAMETH/DIPHEN SUSP 120 ML PO SCH ×4 (09:11→23:09)
[2018-08-23] MEDS ORDERED: LIDOCAINE 1% INJ-PF (10 MG/ML) 30 ML SDV ONE (09:34)
[2018-08-23] MEDS ORDERED: (PENDING PHARMACY ID) (Phentermine Hcl [Phentermine Hcl] 37.5 MG) PO SCH (10:00)
--- NOTE | 2018-08-23 10:19 | Operative Report ---
Operative Report DATE OF SURGERY: 08/23/18 PREOPERATIVE DIAGNOSIS: 1. Perianal microabscesses. 2. Left dominant wall ab scess POSTOPERATIVE DIAGNOSIS: Same OPERATION: Excisional debridement of the left mid abdominal wall abscess SURGEON: JAIDEN DE ANDA ANESTHESIA: Local TISSUE REMOVED OR ALTERED: Necrotic skin and subcutaneous tissue COMPLICATIONS: None ESTIMATED BLOOD LOSS: Minimal INTRAOPERATIVE FINDINGS: See below PROCEDURE: Examination of the patient in the perineum revealed several small tight draining sites around the perianal tissue. Previous I&D of a perianal abscess. Left side minimally tender, but no evidence of fluctuance. No active drainage currently. Left mid abdominal wall 2 x 3 cm erythematous, tender abscess. Management discussed; I recommended the micro reveals soaks for the perineum; and debridement of abdominal wall abscess. Surgical plan surgical timeout conducted. The left mid abdominal wall was prepped with chlorhexidine, anesthetized with 1% plain lidocaine. An ellipse was made in the skin and subcutaneous tissue with a #15 blade, removing a core tissue 2 x 2 x 4 cm including the necrotic fatty tissue. Index finger used to break up any small loculations. Wound irrigated with saline, and packed with 2 small pieces of gauze. 4 x 4's applied. Patient tolerated procedure well. Impression: Likely polymicrobial abdominal wall abscess status post bedside debridement. Recommendations: 1. Continue antimicrobial therapy 2. We will order Hibiclens scrubs to perineum. 3. Remove 2 small pieces of gauze packing from abdominal wall tomorrow, and allow wound closed by secondary intention. 4. Patient can follow-up with her on an outpatient basis if further wound care required.
--- NOTE | 2018-08-23 11:50 | RADIOLOGY REPORT (SQ) ---
EXAM DESCRIPTION: CHEST SINGLE VIEW COMPLETED DATE/TIME: 08/23/2018 10:13 am REASON FOR STUDY: shortness of breath COMPARISON: 06/04/2018 EXAM PARAMETERS: NUMBER OF VIEWS: One view. TECHNIQUE: Single frontal radiographic view of the chest acquired. RADIATION DOSE: NA LIMITATIONS: None. FINDINGS: LUNGS AND PLEURA: Bilateral diffuse asymmetric airspace disease in the lungs, more pronou nced on the left, may be on the basis of edema or infiltrates. No pneumothorax or pleural effusion. MEDIASTINUM AND HILAR STRUCTURES: No masses. Contour normal. HEART AND VASCULAR STRUCTURES: Stable appearance. Mild prominence of the pulmonary vasculature sugg est vascular congestion. BONES: No acute findings. HARDWARE: None in the chest. OTHER: No other significant finding. IMPRESSION: 1. Bilateral diffuse asymmetric airspace disease in the lungs, more so on the left, may be on the basis of edema or infiltrates. 2. Mild prominence of the pulmonary vasculature suggest congestion. TECHNICAL DOCUMENTATION: JOB ID: [id number] [employer]- All Rights Reserved Reading location - IP/workstation name: [email or web address]
[2018-08-23] MEDS: CEFTRIAXONE SODIUM 1,000 MG in DEXTROSE 5%-WATER 50 ML IV SCH (17:09)
[2018-08-23] MEDS: FOLIC ACID/VITAMIN B COMP W-C CAPSULE PO SCH (17:09)
[2018-08-24] MEDS: ZOLPIDEM TARTRATE 5 MG TABLET PO PRN (01:52)
[2018-08-24] MEDS: OXYCODONE HCL IR 5 MG TABLET PO PRN ×3 (05:28→23:51)
[2018-08-24 05:34] LABS: ABSOLUTE EOSINOPHILS # (AUTO) 0.2 10^3/uL (0.0-0.6); ABSOLUTE LYMPHOCYTES (AUTO) 1.4 10^3/uL (0.5-4.7); ABSOLUTE MONOCYTES (AUTO) 1.1 10^3/uL (0.1-1.4); ABSOLUTE NEUT (AUTO) 8.8 10^3/uL (1.7-8.2); BASOPHILS % (AUTO) 0.3 % (0-2); EOSINOPHILS % (AUTO) 1.5 % (0-6); HEMATOCRIT 22.2 % (36.0-47.0); LYMPHOCYTES % (AUTO) 11.9 % (13-45); MEAN CORPUSCULAR HGB CONC 32.9 g/dL (32.0-36.0); MEAN CORPUSCULAR VOLUME 106 fl (80-97); MONOCYTES % (AUTO) 9.8 % (3-13); PLATELET COUNT 101 10^3/uL (150-450); RED BLOOD COUNT 2.08 10^6/uL (3.72-5.28); RED CELL DISTRIBUTION WIDTH 18.9 % (11.5-14.0); SEGMENTED NEUTROPHILS % (AUTO) 76.5 % (42-78); TOTAL CELLS COUNTED % (AUTO) 100 %; WHITE BLOOD COUNT 11.5 10^3/uL (4.0-10.5)
[2018-08-24 05:38] LABS: HEMOGLOBIN 7.3 g/dL (12.0-15.5)
[2018-08-24 05:53] LABS: ALANINE AMINOTRANSFERASE 32 U/L (9-52); ALKALINE PHOSPHATASE 106 U/L (38-126); ANION GAP 7 (5-19); ASPARTATE AMINO TRANSFERASE 49 U/L (14-36); BILIRUBIN,DIRECT 1.2 mg/dL (0.0-0.4); BILIRUBIN,TOTAL 1.9 mg/dL (0.2-1.3); CALCIUM 7.5 mg/dL (8.4-10.2); CARBON DIOXIDE 21 mmol/L (22-30); CHLORIDE 106 mmol/L (98-107); GLUCOSE 130 mg/dL (75-110); POTASSIUM 3.8 mmol/L (3.6-5.0); SODIUM 134.1 mmol/L (137-145); TOTAL PROTEIN 5.2 g/dL (6.3-8.2)
[2018-08-24 05:56] LABS: BLOOD UREA NITROGEN < 2 mg/dL (7-20)
[2018-08-24] MEDS: IPRATROPIUM/ALBUTEROL 0.5-2.5 MG/3 ML AMPUL NEB SCH ×3 (08:01→20:36)
[2018-08-24] MEDS: NICOTINE 21 MG/24 HR PATCH.TD24 TD SCH (10:26)
[2018-08-24] MEDS: BUSPIRONE HCL 10 MG TABLET PO SCH ×2 (10:28→21:52)
[2018-08-24] MEDS: FAMOTIDINE 20 MG TABLET PO SCH ×2 (10:29→21:51)
[2018-08-24] MEDS: DOCUSATE SODIUM 100 MG CAPSULE PO SCH (10:29)
[2018-08-24] MEDS: ESCITALOPRAM OXALATE 10 MG TABLET PO SCH (10:29)
[2018-08-24] MEDS: TRAZODONE HCL 50 MG TABLET PO SCH (10:30)
[2018-08-24] MEDS: LEVOFLOXACIN 750 MG/D5W RTU 750 MG/150 ML RTUPB IV SCH (10:37)
[2018-08-24] MEDS: INSULIN LISPRO 100 UNIT/ML 3 ML VIAL SUBCUT SCH ×4 (13:06→21:51)
[2018-08-24] MEDS: ENOXAPARIN SODIUM INJ 40 MG/0.4 ML DISP.SYRIN SUBCUT SCH (13:10)
[2018-08-24] MEDS: NYSTATIN/DEXAMETH/DIPHEN SUSP 120 ML PO SCH ×3 (13:11→21:52)
[2018-08-24] MEDS: LORAZEPAM INJ 2 MG/1 ML VIAL IV PRN ×2 (13:21→20:31)
[2018-08-24] MEDS ORDERED: NORMAL SALINE 250 ML IV PRN ×2 (15:59)
[2018-08-24] MEDS: MAGNESIUM SULFATE/D5W 1 GM/100 ML RTUPB IV SCH (16:15)
[2018-08-24] MEDS: FOLIC ACID/VITAMIN B COMP W-C CAPSULE PO SCH (16:15)
[2018-08-24] MEDS: CEFTRIAXONE SODIUM 1,000 MG in DEXTROSE 5%-WATER 50 ML IV SCH (18:30)
[2018-08-24] MEDS: TRAZODONE HCL 50 MG TABLET PO PRN (23:53)
[2018-08-25] MEDS: MAGNESIUM SULFATE/D5W 1 GM/100 ML RTUPB IV SCH ×3 (02:01→05:16)
[2018-08-25 03:21] LABS: HEMATOCRIT 25.4 % (36.0-47.0); HEMOGLOBIN 8.5 g/dL (12.0-15.5); MEAN CORPUSCULAR HEMOGLOBIN 33.4 pg (27.0-33.4); MEAN CORPUSCULAR HGB CONC 33.5 g/dL (32.0-36.0); PLATELET COUNT 100 10^3/uL (150-450); RED BLOOD COUNT 2.54 10^6/uL (3.72-5.28); RED CELL DISTRIBUTION WIDTH 24.2 % (11.5-14.0); WHITE BLOOD COUNT 10.3 10^3/uL (4.0-10.5)
[2018-08-25 03:42] LABS: ABSOLUTE LYMPHOCYTES# (MANUAL) 1.2 10^3/uL (0.5-4.7); ABSOLUTE MONOCYTES # (MANUAL) 0.3 10^3/uL (0.1-1.4); BAND NEUTROPHILS % (MANUAL) 2 % (3-5); BASOPHILS % (MANUAL) 1 % (0-2); EOSINOPHILS % (MANUAL) 1 % (0-6); LYMPHOCYTES % (MANUAL) 12 % (13-45); MONOCYTES % (MANUAL) 3 % (3-13); SEGMENTED NEUTROPHILS % (MAN) 81 % (42-78); TOTAL CELLS COUNTED 100
[2018-08-25 03:43] LABS: ANISOCYTOSIS 3+; HYPOCHROMASIA 1+
[2018-08-25 03:44] LABS: PLATELET COMMENT DECREASED
[2018-08-25 03:46] LABS: MEAN CORPUSCULAR VOLUME 100 fl (80-97)
[2018-08-25] MEDS: LORAZEPAM INJ 2 MG/1 ML VIAL IV PRN ×2 (05:09→21:57)
--- NOTE | 2018-08-25 05:55 | PDOC PROGRESS REPORT ---
Subjective Progress Note for:: 08/24/18 Subjective:: The patient reports feeling poorly. She is still having pain at the excision site for her abscess on the abdomen. Reason For Visit: UTI, CELLULITIS, SEPSIS Physical Exam Vital Signs: Temp Pulse Resp BP Pulse Ox 98.8 F 95 20 109/60 93 08/24/18 05:11 08/24/18 14:30 08/24/18 14:30 08/24/18 05:11 08/24/18 08:02 Intake & Output 08/23/18 08/24/18 08/25/18 06:59 06:59 06:59 Intake Total 250 1203 Balance 250 1203 Weight 106.2 kg 106 kg General appearance: PRESENT: cooperative, mild distress, well-developed Head exam: PRESENT: atraumatic, normocephalic Eye exam: PRESENT: conjunctiva pale Ear exam: PRESENT: normal external ear exam Mouth exam: PRESENT: neck supple Respiratory exam: PRESENT: clear to auscultation kristina, symmetrical, unlabored. ABSENT: accessory muscle use, prolonged expiratory phas, rales, rhonchi, tachypnea, wheezes Cardiovascular exam: PRESENT: RRR, +S1, +S2 GI/Abdominal exam: PRESENT: normal bowel sounds, soft, tenderness - Especially lower left quadrant at the site of the recent abscess resection. Also tender more laterally., other - Pendulous abdomen. ABSENT: guarding Rectal exam: PRESENT: deferred Neurological exam: PRESENT: alert, awake, oriented to person, oriented to place, oriented to time, oriented to situation Psychiatric exam: PRESENT: flat affect. ABSENT: agitated, anxious Focused psych exam: ABSENT: delusional, restlessness Skin exam: PRESENT: normal color - Except for a small ecchymotic lesion lateral to the excision site., other - Perianal wound not examined. Seen by surgery. Abdominal wound repacked by surgery today. Results Laboratory Results: 08/24/18 05:19 08/24/18 05:19 08/24/18 08/24/18 05:19 05:19 WBC 11.5 H RBC 2.08 L Hgb 7.3 L Hct 22.2 L MCV 106 H MCH 35.0 H MCHC 32.9 RDW 18.9 H Plt Count 101 L Seg Neutrophils % 76.5 Lymphocytes % 11.9 L Monocytes % 9.8 Eosinophils % 1.5 Basophils % 0.3 Absolute Neutrophils 8.8 H Absolute Lymphocytes 1.4 Absolute Monocytes 1.1 Absolute Eosinophils 0.2 Absolute Basophils 0.0 Sodium 134.1 L Potassium 3.8 Chloride 106 Carbon Dioxide 21 L Anion Gap 7 BUN < 2 L Creatinine 0.40 L Est GFR ( Amer) > 60 Est GFR (Non-Af Amer) > 60 Glucose 130 H Calcium 7.5 L Magnesium 1.5 L Total Bilirubin 1.9 H AST 49 H ALT 32 Alkaline Phosphatase 106 Total Protein 5.2 L Albumin 2.0 L Impressions: Pelvis CT 08/20/18 07:39 IMPRESSION: NO SIGNIFICANT OR ACUTE FINDINGS IN THE PELVIS. NO EVIDENCE OF PERIANAL OR PERIRECTAL ABSCESS. Chest X-Ray 08/23/18 00:00 IMPRESSION: 1. Bilateral diffuse asymmetric airspace disease in the lungs, m ore so on the left, may be on the basis of edema or infiltrates. 2. Mild prominence of the pulmonary vasculature suggest congestion. Assessment and Plan - Diagnosis (1) Sepsis Qualifiers: Sepsis type: sepsis due to unspecified organism Qualified Code(s): A41.9 - Sepsis, unspecified organism Is this a current diagnosis for this admission?: Yes Plan: 08/24/2017-the patient's lactic acid was still slightly elevated several days ago. A repeat study has been ordered. The cystitis revealed Klebsiella. The wound culture revealed Klebsiella as well as Citrobacter and group B strep. I will narrow the spectrum of antibiotics to the ceftriaxone. She has no afebrile (2) Acute and chronic respiratory failure with hypoxia Is this a current diagnosis for this admission?: Yes Plan: 08/24/2018-continue nebulizer treatments. Consider starting combination inhaler and change the nebulizer treatments to as needed. (3) Cellulitis, gluteal Is this a current diagnosis for this admission?: Yes (4) Diabetes type 2, controlled Qualifiers: Diabetes mellitus alf insulin use: without alf use Diabetes mellitus complication status: without complication Qualified Code(s): E11.9 - Type 2 diabetes mellitus without complications Is this a current diagnosis for this admission?: Yes Plan: 08/24/2018-the patient exhibits good Accu-Cheks. When her diet is consistent I will resume her metformin. (5) Acute UTI Is this a current diagnosis for this admission?: Yes Plan: 08/24/2018-urine cultures positive for Klebsiella. It is quite sensitive. I will continue the ceftriaxone at this time. (6) Hypomagnesemia Is this a current diagnosis for this admission?: Yes Plan: 08/24/2018-magnesium level is low. We will replete by IV and start daily magnesium oxide dosing. Continue to follow magnesium level. (7) Lactic acidosis Is this a current diagnosis for this admission?: Yes Plan: 08/24/2018-repeat lactic acid to ensure complete resolution. (8) Anemia Qualifiers: Anemia type: other cause Is this a current diagnosis for this admission?: Yes Plan: 08/24/2018-the patient has received transfusions before. Her stool was Hemoccult positive. She also reports history of a gastric ulcer. This could be due to chronic low-grade blood loss. I will request a consultation from gastroenterology. Because her hemoglobin was low again I have ordered 2 units of packed red blood cells. (9) Abdominal wall abscess Is this a current diagnosis for this admission?: Yes Plan: 08/24/2018-resected by Dr. Rodgers. Dressing changes per surgery. She is already on antibiotics for the Klebsiella in the urine as well as multiple organisms in the buttock ulcer. - Time Time Spent with patient: 15-24 minutes Medications reviewed and adjusted accordingly: Yes - Plan Summary Plan Summary: gi bleed consult anemia workup
[2018-08-25 07:17] LABS: ANION GAP 8 (5-19); CALCIUM 7.7 mg/dL (8.4-10.2); CARBON DIOXIDE 22 mmol/L (22-30); CHLORIDE 106 mmol/L (98-107); GLUCOSE 111 mg/dL (75-110); POTASSIUM 3.7 mmol/L (3.6-5.0); SODIUM 135.9 mmol/L (137-145)
[2018-08-25 07:20] LABS: BLOOD UREA NITROGEN < 2 mg/dL (7-20)
[2018-08-25] MEDS: IPRATROPIUM/ALBUTEROL 0.5-2.5 MG/3 ML AMPUL NEB SCH ×3 (08:40→20:57)
[2018-08-25] MEDS ORDERED: FUROSEMIDE INJ/PF 20 MG/2 ML SDV IV ONE (09:30)
[2018-08-25] MEDS: MAGNESIUM OXIDE 400 MG TABLET PO SCH ×3 (10:16→18:00)
[2018-08-25] MEDS: NYSTATIN/DEXAMETH/DIPHEN SUSP 120 ML PO SCH ×5 (10:16→21:53)
[2018-08-25] MEDS: INSULIN LISPRO 100 UNIT/ML 3 ML VIAL SUBCUT SCH ×4 (10:17→21:52)
[2018-08-25] MEDS: NICOTINE 21 MG/24 HR PATCH.TD24 TD SCH (10:28)
[2018-08-25] MEDS: ESCITALOPRAM OXALATE 10 MG TABLET PO SCH (10:31)
[2018-08-25] MEDS: DOCUSATE SODIUM 100 MG CAPSULE PO SCH (10:31)
[2018-08-25] MEDS: TRAZODONE HCL 50 MG TABLET PO SCH (10:31)
[2018-08-25] MEDS: BUSPIRONE HCL 10 MG TABLET PO SCH ×2 (10:32→21:51)
[2018-08-25] MEDS: FAMOTIDINE 20 MG TABLET PO SCH ×2 (10:32→21:51)
[2018-08-25] MEDS: ENOXAPARIN SODIUM INJ 40 MG/0.4 ML DISP.SYRIN SUBCUT SCH (10:34)
[2018-08-25] MEDS: CEFTRIAXONE SODIUM 1,000 MG in DEXTROSE 5%-WATER 50 ML IV SCH (18:00)
[2018-08-25] MEDS: FOLIC ACID/VITAMIN B COMP W-C CAPSULE PO SCH (18:00)
[2018-08-25] MEDS: OXYCODONE HCL IR 5 MG TABLET PO PRN (20:18)
--- NOTE | 2018-08-25 20:51 | PDOC CONSULTATION ---
Consultation Consult Date: 08/25/18 Provider Consulted: SURGICAL SURGICALIST MD Consult reason:: Anemia, rule out GI source History of Present Illness Admission Date/PCP: 08/20/18 11:02 Patient complains of: Weakness, fatigue History of Present Illness: JOVANNI RENTERIA is a 48 year old female admitted with sepsis, presumably from a urinary tract infection. The patient was found to have chronic appearing anemia. The patient has a reported history of alcohol use. Surgery has been consulted to perform EGD to assess for gastritis/ulcers/upper GI bleeding. The patient denies nausea, vomiting, or abdominal pain. She denies melena, hematochezia, or hematemesis. Patient was found to have guaiac positive stools on this admission. The patient denies chest pain, shortness of breath, blurry vision, dizziness, sore throat, difficulty hearing. The patient does report weakness, fatigue, and malaise. Nothing makes her symptoms better or worse. Patient does report smoking cigarettes. Past Medical History Cardiac Medical History: Reports: Hypertension Pulmonary Medical History: Reports: Asthma, Bronchitis, Chronic Obstructive Pulmonary Disease (COPD) Endocrine Medical History: Reports: Diabetes Mellitus Type 2 Musculoskeltal Medical History: Denies: Gout Psychiatric Medical History: Reports: Depression Past Surgical History Past Surgical History: Reports: Section, Cholecystectomy, Gastric Bypass Surgery, Tonsillectomy Social History Smoking Status: Current Every Day Smoker Last Time Smoked: 08/20/18 Frequency of Alcohol Use: Heavy Hx Recreational Drug Use: No Drugs: None Hx Prescription Drug Abuse: No Family History Family History: Reviewed & Not Pertinent, CAD, Malignancy Parental Family History Reviewed: Yes Children Family History Reviewed: Yes Sibling(s) Family History Reviewed.: Yes Medication/Allergy Home Medications: Phentermine HCl 37.5 mg PO DAILY 08/12/17 Escitalopram Oxalate [Lexapro] 40 mg PO DAILY 01/10/18 Metformin HCl 500 mg PO BID 01/10/18 Trazodone HCl 50 mg PO DAILY 01/10/18 Oxycodone HCl [Oxycodone HCl 10 MG Tablet] 10 mg PO Q6HP PRN 08/20/18 Trazodone HCl [Desyrel] 100 mg PO HSP PRN 08/20/18 Allergies/Adverse Reactions: morphine [Morphine] Allergy (Verified 06/04/18 16:13) nitrofurantoin [From Macrobid] Allergy (Verified 06/04/18 16:13) nitrofurantoin macrocrystalline [From Macrobid] Allergy (Verified 06/04/18 16:13) Sulfa (Sulfonamide Antibiotics) Allergy (Verified 06/04/18 16:13) sulfamethoxazole [From Bactrim] Allergy (Verified 06/04/18 16:13) trimethoprim [From Bactrim] Allergy (Verified 06/04/18 16:13) red ants Allergy (Severe, Uncoded 06/04/18 16:13) Anaphylaxis bees Allergy (Uncoded 06/04/18 16:13) Review of Systems Constitutional: PRESENT: fatigue, weakness. ABSENT: anorexia, chills, fever(s) Ears: ABSENT: hearing changes Nose, Mouth, and Throat: ABSENT: sore throat Cardiovascular: ABSENT: chest pain Respiratory: ABSENT: cough Gastrointestinal: ABSENT: abdominal pain, bloating, coffee ground emesis, diarrhea, heartburn, hematemesis, hematochezia, nausea, vomiting Genitourinary: PRESENT: dysuria Musculoskeletal: PRESENT: back pain Integumentary: ABSENT: pruritus, rash Neurological: PRESENT: confusion, weakness. ABSENT: convulsions, dizziness Psychiatric: ABSENT: anxiety Endocrine: ABSENT: cold intolerance, heat intolerance Hematologic/Lymphatic: ABSENT: easy bleeding, easy bruising Physical Exam Vital Signs: Temp Pulse Resp BP Pulse Ox 98.4 F 98 16 108/62 97 08/25/18 07:33 08/25/18 08:40 08/25/18 08:40 08/25/18 07:33 08/25/18 08:40 Intake & Output 08/24/18 08/25/18 08/26/18 06:59 06:59 06:59 Intake Total 1203 2135 Balance 1203 2135 Weight 106 kg 107.7 kg General appearance: PRESENT: no acute distress Head exam: PRESENT: atraumatic, normocephalic Eye exam: PRESENT: EOMI, PERRLA. ABSENT: scleral icterus Mouth exam: PRESENT: moist, neck supple Teeth exam: PRESENT: poor dentation Neck exam: ABSENT: meningismus, tenderness, thyromegaly, tracheal deviation Respiratory exam: PRESENT: chest wall tenderness, unlabored. ABSENT: clear to auscultation kristina, tachypnea, wheezes Cardiovascular exam: PRESENT: RRR Pulses: PRESENT: normal radial pulses Vascular exam: PRESENT: normal capillary refill GI/Abdominal exam: PRESENT: soft. ABSENT: distended, firm, guarding, tenderness Rectal exam: PRESENT: deferred Extremities exam: ABSENT: clubbing Musculoskeletal exam: ABSENT: deformity Neurological exam: PRESENT: alert, awake, oriented to person, oriented to time, oriented to situation Psychiatric exam: ABSENT: agitated, anxious Focused psych exam: ABSENT: delusional Skin exam: PRESENT: other - Left lower quadrant abscess cavity with packing present. No purulence. Mild erythema.. ABSENT: cyanosis, jaundice Results Laboratory Results: 08/25/18 03:03 08/25/18 06:36 08/22/18 08/25/18 08/25/18 17:49 03:03 06:36 WBC 10.3 RBC 2.54 L Hgb 8.5 L Hct 25.4 L MCV 100 H D MCH 33.4 MCHC 33.5 RDW 24.2 H Plt Count 100 L Seg Neutrophils % Not Reportable Lymphocytes % Not Reportable Monocytes % Not Reportable Eosinophils % Not Reportable Basophils % Not Reportable Absolute Neutrophils Not Reportable Absolute Lymphocytes Not Reportable Absolute Monocytes Not Reportable Absolute Eosinophils Not Reportable Absolute Basophils Not Reportable Sodium 135.9 L Potassium 3.7 Chloride 106 Carbon Dioxide 22 Anion Gap 8 BUN < 2 L Creatinine 0.40 L Est GFR ( Amer) > 60 Est GFR (Non-Af Amer) > 60 Glucose 111 H Lactic Acid Calcium 7.7 L Magnesium 1.9 Blood Type O POSITIVE Antibody Screen NEGATIVE 08/25/18 06:36 WBC RBC Hgb Hct MCV MCH MCHC RDW Plt Count Seg Neutrophils % Lymphocytes % Monocytes % Eosinophils % Basophils % Absolute Neutrophils Absolute Lymphocytes Absolute Monocytes Absolute Eosinophils Absolute Basophils Sodium Potassium Chloride Carbon Dioxide Anion Gap BUN Creatinine Est GFR ( Amer) Est GFR (Non-Af Amer) Glucose Lactic Acid 0.9 Calcium Magnesium Blood Type Antibody Screen 08/20/18 10:15 Blood Blood Culture - Final NO GROWTH IN 5 DAYS 08/20/18 08:30 Blood Blood Culture - Final NO GROWTH IN 5 DAYS 08/22/18 08:20 Abdomen - Abscess Gram Stain - Final 08/22/18 08:20 Abdomen - Abscess Wound Culture - Final 1+ SKIN ARETHA Impressions: Pelvis CT 08/20/18 07:39 IMPRESSION: NO SIGNIFICANT OR ACUTE FINDINGS IN THE PELVIS. NO EVIDENCE OF PERIANAL OR PERIRECTAL ABSCESS. Chest X-Ray 08/23/18 00:00 IMPRESSION: 1. Bilateral diffuse asymmetric airspace disease in the lungs, more so on the left, may be on the basis of edema or infiltrates. 2. Mild prominence of the pulmonary vasculature suggest congestion. Assessment & Plan - Diagnosis (1) Heme positive stool Is this a current diagnosis for this admission?: Yes (2) Anemia Qualifiers: Anemia type: other cause Is this a current diagnosis for this admission?: Yes - Plan Summary Plan Summary: This is a 48-year-old female with chronic appearing anemia. Her stools have been tested and have returned as heme positive. The patient has a long history of alcohol abuse and tobacco abuse. The patient has a history of gastric by pass, which may be contributing to her chronic anemia. Surgery has been asked to perform EGD to assess for any ulcerations of the patient's gastric remnant. I have recommended that the patient stop all smoking and alcohol consumption, as it will exacerbate the formation of ulcerations in the gastric pouch. I have offered to perform the procedure today, however the patient is unwilling to consent to the procedure today. Her main concern is eating. I will order her a diet and plan for EGD tomorrow. N.p.o. after midnight. The treatment plan has been discussed at length with the patient. Risks/benefits discussed, informed consent obtained, and all questions answered.
--- NOTE | 2018-08-25 22:11 | PDOC PROGRESS REPORT ---
Subjective Progress Note for:: 08/25/18 Subjective:: The patient has a sitter today. She is quite impulsive. She has risk of fall. Staff reports that she sounds congested/wet regarding her breathing. This could be due to some transfusions. Reason For Visit: UTI, CELLULITIS, SEPSIS Physical Exam Vital Signs: Temp Pulse Resp BP Pulse Ox 98.4 F 98 16 108/62 97 08/25/18 07:33 08/25/18 08:40 08/25/18 08:40 08/25/18 07:33 08/25/18 08:40 Intake & Output 08/24/18 08/25/18 08/26/18 06:59 06:59 06:59 Intake Total 1203 2085 Balance 1203 2085 Weight 106 kg 107.7 kg General appearance: PRESENT: cooperative, mild distress, well-developed Head exam: PRESENT: atraumatic, normocephalic Eye exam: PRESENT: conjunctiva pale Ear exam: PRESENT: normal external ear exam Mouth exam: PRESENT: moist, tongue midline Respiratory exam: PRESENT: rales, symmetrical, unlabored. ABSENT: accessory muscle use, rhonchi, tachypnea, wheezes Cardiovascular exam: PRESENT: RRR, +S1, +S2 GI/Abdominal exam: PRESENT: normal bowel sounds, soft. ABSENT: distended, guarding, tenderness Rectal exam: PRESENT: deferred Extremities exam: ABSENT: calf tenderness, pedal edema Neurological exam: PRESENT: alert, awake, oriented to person, oriented to place, oriented to situation Psychiatric exam: PRESENT: flat affect. ABSENT: agitated, anxious Focused psych exam: PRESENT: restlessness. ABSENT: delusional Results Laboratory Results: 08/25/18 03:03 08/25/18 06:36 08/22/18 08/25/18 08/25/18 17:49 03:03 06:36 WBC 10.3 RBC 2.54 L Hgb 8.5 L Hct 25.4 L MCV 100 H D MCH 33.4 MCHC 33.5 RDW 24.2 H Plt Count 100 L Seg Neutrophils % Not Reportable Lymphocytes % Not Reportable Monocytes % Not Reportable Eosinophils % Not Reportable Basophils % Not Reportable Absolute Neutrophils Not Reportable Absolute Lymphocytes Not Reportable Absolute Monocytes Not Reportable Absolute Eosinophils Not Reportable Absolute Basophils Not Reportable Sodium 135.9 L Potassium 3.7 Chloride 106 Carbon Dioxide 22 Anion Gap 8 BUN < 2 L Creatinine 0.40 L Est GFR ( Amer) > 60 Est GFR (Non-Af Amer) > 60 Glucose 111 H Lactic Acid Calcium 7.7 L Magnesium 1.9 Blood Type O POSITIVE Antibody Screen NEGATIVE 08/25/18 06:36 WBC RBC Hgb Hct MCV MCH MCHC RDW Plt Count Seg Neutrophils % Lymphocytes % Monocytes % Eosinophils % Basophils % Absolute Neutrophils Absolute Lymphocytes Absolute Monocytes Absolute Eosinophils Absolute Basophils Sodium Potassium Chloride Carbon Dioxide Anion Gap BUN Creatinine Est GFR ( Amer) Est GFR (Non-Af Amer) Glucose Lactic Acid 0.9 Calcium Magnesium Blood Type Antibody Screen 08/20/18 08:30 Blood Blood Culture - Final NO GROWTH IN 5 DAYS 08/22/18 08:20 Abdomen - Abscess Gram Stain - Final 08/22/18 08:20 Abdomen - Abscess Wound Culture - Final 1+ SKIN PHI Impressions: Pelvis CT 08/20/18 07:39 IMPRESSION: NO SIGNIFICANT OR ACUTE FINDINGS IN THE PELVIS. NO EVIDENCE OF PERIANAL OR PERIRECTAL ABSCESS. Chest X-Ray 08/23/18 00:00 IMPRESSION: 1. Bilateral diffuse asymmetric airspace disease in the lungs, more so on the left, may be on the basis of edema or infiltrates. 2. Mild prominence of the pulmonary vasculature suggest congestion. Assessment and Plan - Diagnosis (1) Sepsis Qualifiers: Sepsis type: sepsis due to unspecified organism Qualified Code(s): A41.9 - Sepsis, unspecified organism Is this a current diagnosis for this admission?: Yes Plan: 08/24/2017-the patient's lactic acid was still slightly elevated several days ago. A repeat study has been ordered. The cystitis revealed Klebsiella. The wound culture revealed Klebsiella as well as Citrobacter and group B strep. I will narrow the spectrum of antibiotics to the ceftriaxone. She has no fever. 08/25/2017-continue ceftriaxone for the multiple gram-negative organisms. White blood cell count is now normal. (2) Acute and chronic respiratory failure with hypoxia Is this a current diagnosis for this admission?: Yes Plan: 08/24/2018-continue nebulizer treatments. Consider starting combination inhaler and change the nebulizer treatments to as needed. 08/25/2018-ongoing nebulizer treatments the patient potentially has an endoscopy for tomorrow. I will then introduce a combination inhaler and try and wean the patient's from nebulizer treatments. (3) Cellulitis, gluteal Is this a current diagnosis for this admission?: Yes Plan: History of present right gluteal abscess status post drainage in ED. Likely polymicrobial description phi and fecal contamination. DC clindamycin. Continue IV ceftriaxone. Wound culture positive for gram-negative rods, pending sensitivity. Switch to p.o. antibiotics once sensitivity available. 08/24/2018-patient has history of right gluteal abscess status post I&D in the emergency room. On IV ceftriaxone. Cultures came back positive for gram-ne gative rods and group B streptococcus. Wound cultures were positive for Klebsiella, Citrobacter, repeat Streptococcus. IV levofloxacin added to the medication. Surgical consult is going to be requested for further evaluation. 08/25/2018-wound care per surgery. Continue ceftriaxone at this time. (4) Diabetes type 2, controlled Qualifiers: Diabetes mellitus longterm insulin use: without ad terminal makeup operator use Diabetes mellitus complication status: without complication Qualified Code(s): E11.9 - Type 2 diabetes mellitus without complications Is this a current diagnosis for this admission?: Yes Plan: 08/24/2018-the patient exhibits good Accu-Cheks. When her diet is consistent I will resume her metformin. 08/25/[id number]-Aspid are consistently under 200. She is n.p.o. after midnight for possible endoscopy. I will likely resume her metformin when she resumes an oral diet. (5) Acute UTI Is this a current diagnosis for this admission?: Yes Plan: 08/24/2018-urine cultures positive for Klebsiella. It is quite sensitive. I will continue the ceftriaxone at this time. 08/25/2018-continue ceftriaxone. (6) Hypomagnesemia Is this a current diagnosis for this admission?: Yes Plan: 08/24/2018-magnesium level is low. We will replete by IV and start daily magnesium oxide dosing. Continue to follow magnesium level. 08/25/2018-magnesium level is normal today. Continue to follow. (7) Lactic acidosis Is this a current diagnosis for this admission?: Yes Plan: 08/24/2018-repeat lactic acid to ensure complete resolution. 08/25/2018-serum lactic acid is back in the normal range. (8) Anemia Qualifiers: Anemia type: other cause Is this a current diagnosis for this admission?: Yes Plan: 08/24/2018-the patient has received transfusions before. Her stool was Hemoccult positive. She also reports history of a gastric ulcer. This could be due to chronic low-grade blood loss. I will request a consultation from gastroenterology. Because her hemoglobin was low again I have ordered 2 units of packed red blood cells. 08/25/2018-anemia is likely due to chronic blood loss. Also her chronic illnesses contribute. She did receive 2 units of packed red blood cells. Continue to monitor her hemoglobin. Consider a multivitamin with iron. Appreciate Dr. Hall's input. Planning for gastroscopy tomorrow if the patient will consent. I have switch the patient to 40 mg of Protonix twice daily. (9) Abdominal wall abscess Is this a current diagnosis for this admission?: Yes Plan: 08/24/2018-resected by Dr. Rodgers. Dressing changes per surgery. She is already on antibiotics for the Klebsiella in the urine as well as multiple organisms in the buttock ulcer. 08/25/2018-wound care per surgery. Continue ceftriaxone. - Time Time Spent with patient: 15-24 minutes Medications reviewed and adjusted accordingly: Yes Anticipated discharge: Home - Plan Summary Plan Summary: Wet from transfusion, Lasix, consult Dr. Hall endoscopy. Currently n.p.o. Very impulsive. Could be related to alcohol.
[2018-08-26] MEDS: PANTOPRAZOLE SODIUM 40 MG TABLET.DR PO SCH ×2 (05:07→17:32)
[2018-08-26 06:04] LABS: ABSOLUTE EOSINOPHILS # (AUTO) 0.2 10^3/uL (0.0-0.6); ABSOLUTE LYMPHOCYTES (AUTO) 2.1 10^3/uL (0.5-4.7); ABSOLUTE MONOCYTES (AUTO) 1.2 10^3/uL (0.1-1.4); BASOPHILS % (AUTO) 0.4 % (0-2); EOSINOPHILS % (AUTO) 2.6 % (0-6); HEMATOCRIT 24.9 % (36.0-47.0); HEMOGLOBIN 8.5 g/dL (12.0-15.5); MEAN CORPUSCULAR HEMOGLOBIN 34.1 pg (27.0-33.4); MEAN CORPUSCULAR HGB CONC 34.1 g/dL (32.0-36.0); MEAN CORPUSCULAR VOLUME 100 fl (80-97); MONOCYTES % (AUTO) 12.2 % (3-13); PLATELET COUNT 119 10^3/uL (150-450); RED BLOOD COUNT 2.48 10^6/uL (3.72-5.28); RED CELL DISTRIBUTION WIDTH 23.7 % (11.5-14.0); SEGMENTED NEUTROPHILS % (AUTO) 62.8 % (42-78); TOTAL CELLS COUNTED % (AUTO) 100 %; WHITE BLOOD COUNT 9.5 10^3/uL (4.0-10.5)
[2018-08-26 06:17] LABS: ALANINE AMINOTRANSFERASE 23 U/L (9-52); ALKALINE PHOSPHATASE 99 U/L (38-126); ANION GAP 6 (5-19); ASPARTATE AMINO TRANSFERASE 50 U/L (14-36); BILIRUBIN,DIRECT 1.1 mg/dL (0.0-0.4); BILIRUBIN,TOTAL 2.1 mg/dL (0.2-1.3); CALCIUM 7.8 mg/dL (8.4-10.2); CARBON DIOXIDE 25 mmol/L (22-30); CHLORIDE 106 mmol/L (98-107); GLUCOSE 104 mg/dL (75-110); POTASSIUM 3.2 mmol/L (3.6-5.0); SODIUM 136.8 mmol/L (137-145); TOTAL PROTEIN 5.1 g/dL (6.3-8.2)
[2018-08-26 06:28] LABS: BLOOD UREA NITROGEN < 2 mg/dL (7-20); PREALBUMIN < 3.0 mg/dL (17.6-36.0)
[2018-08-26 07:16] LABS: ANISOCYTOSIS 3+; TARGET CELLS 1+
[2018-08-26 07:42] LABS: PLATELET COMMENT DECREASED
[2018-08-26] MEDS: INSULIN LISPRO 100 UNIT/ML 3 ML VIAL SUBCUT SCH ×4 (07:54→21:01)
[2018-08-26] MEDS: IPRATROPIUM/ALBUTEROL 0.5-2.5 MG/3 ML AMPUL NEB SCH ×2 (08:35→13:42)
[2018-08-26] MEDS ORDERED: FENTANYL CITRATE INJ/PF 100 MCG/2 ML AMPUL ONE (10:07)
[2018-08-26] MEDS ORDERED: DIPHENHYDRAMINE HCL 50 MG/ML VIAL ONE (10:07)
[2018-08-26] MEDS ORDERED: ONDANSETRON HCL INJ/PF 4 MG/2 ML SDV ONE (10:07)
[2018-08-26] MEDS ORDERED: EPINEPHRINE INJ 1 MG/10 ML DISP.SYRIN ONE (10:08)
[2018-08-26] MEDS ORDERED: NALOXONE HCL INJ/PF 0.4 MG/1 ML SDV ONE (10:08)
[2018-08-26] MEDS ORDERED: FLUMAZENIL INJ 0.5 MG/5 ML VIAL ONE (10:08)
[2018-08-26] MEDS ORDERED: GLUCAGON,HUMAN RECOMB 1 MG INJ ONE (10:08)
[2018-08-26] MEDS: ENOXAPARIN SODIUM INJ 40 MG/0.4 ML DISP.SYRIN SUBCUT SCH (10:34)
[2018-08-26] MEDS: MIDAZOLAM 2 MG/2 ML INJ ONE ×2 (10:42→10:45)
--- NOTE | 2018-08-26 11:19 | Operative Report ---
Nonrecallable Operative Report DATE OF SURGERY: 08/26/18 PREOPERATIVE DIAGNOSIS: Abdominal pain; anemia; status post gastric bypass with Mckay-en-Y reconstruction POSTOPERATIVE DIAGNOSIS: Same with intact gastrojejunostomy; no evidence of esophageal, gastric pouch or jejunal limb pathology OPERATION: 1. [id number]. 2.: Forceps biopsy of remnant gastric pouch SURGEON: JAIDEN DE ANDA ANESTHESIA: Moderate Sedation TISSUE REMOVED OR ALTERED: Mucosa biopsy of gastric pouch COMPLICATIONS: None ESTIMATED BLOOD LOSS: Scant INTRAOPERATIVE FINDINGS: See below PROCEDURE: Patient was taken to the third floor the endoscopy suite for conscious sedation was induced after testing appropriate monitoring devices. She was placed in the semirecumbent position, left lateral. Surgical plan surgical timeout were conducted. The flexible upper endoscope was advanced to the oropharynx, down the esophagus through the GE junction into the gastric pouch. From there the scope was advanced through the gastric pouch which is approximately 10 cm long into the Mckay-en-Y jejunal limb. The scope was advanced into the jejunum approximately 2 cm. Throughout the endoscopy there was no evidence of bleeding, stricture, polyp, ulcer or any mucosal inflammation. There was no evidence of retained food in the gastric pouch. A random biopsy of the gastric pouch mucosa was obtained and sent for JOEL and histologic analysis. The GE junction was at approximately 40 cm from the incisor. The Z line appeared normal. The remainder the esophagus was unremarkable. The scope was withdrawn to the length of the esophagus carefully checking for varices tumor stricture or ulceration and there was none. The scope was withdrawn from the patient's oropharynx. She tolerated the procedure well. Impression: No evidence of esophageal, gastric pouch, or jejunal limb pathology; intact gastro-jejunostomy consistent with previous gastric bypass 1. Reviewed the above with primary care provider; medical management recommended no specific further intervention. 2. I did caution Dr. Zee that patients with a bypassed gastric remnant, and duodenum are at risk for ulceration and other pathology; unfortunately evaluating this area is very challenging, and typically requires a skilled endo scopist using a pediatric colonoscope. There is no clinical indication for pursuing this procedure at this time. 3. Reconsult surgery if clinically indicated.
[2018-08-26] MEDS: NYSTATIN/DEXAMETH/DIPHEN SUSP 120 ML PO SCH ×4 (11:33→21:03)
[2018-08-26] MEDS: DOCUSATE SODIUM 100 MG CAPSULE PO SCH (11:33)
[2018-08-26] MEDS: NICOTINE 21 MG/24 HR PATCH.TD24 TD SCH (11:46)
[2018-08-26] MEDS: ESCITALOPRAM OXALATE 10 MG TABLET PO SCH (11:46)
[2018-08-26] MEDS: OXYCODONE HCL IR 5 MG TABLET PO PRN ×2 (11:46→23:33)
[2018-08-26] MEDS: MAGNESIUM OXIDE 400 MG TABLET PO SCH ×2 (11:47→17:31)
[2018-08-26] MEDS: TRAZODONE HCL 50 MG TABLET PO SCH (11:47)
[2018-08-26] MEDS: BUSPIRONE HCL 10 MG TABLET PO SCH ×2 (11:47→21:03)
[2018-08-26] MEDS: FUROSEMIDE 40 MG TABLET PO SCH (11:47)
[2018-08-26] MEDS ORDERED: POTASSI CL 20 MEQ/50 ML RIDER 20 MEQ/50 ML RTUPB IV ONE (14:47)
--- NOTE | 2018-08-26 16:00 | PDOC PROGRESS REPORT ---
Subjective Progress Note for:: 08/26/18 Subjective:: Patient had a gastroscopy earlier today. She is quite sleepy and this could be from the procedure. Reason For Visit: UTI, CELLULITIS, SEPSIS Physical Exam Vital Signs: Temp Pulse Resp BP Pulse Ox 98.2 F 88 16 99/66 L 93 08/26/18 11:44 08/26/18 13:42 08/26/18 13:42 08/26/18 11:44 08/26/18 13:42 Intake & Output 08/25/18 08/26/18 08/27/18 06:59 06:59 06:59 Intake Total 2135 675 200 Output Total 1999 Balance 2135 -1325 200 Weight 107.7 kg 103.7 kg General appearance: PRESENT: no acute distress Head exam: PRESENT: atraumatic, normocephalic Ear exam: PRESENT: normal external ear exam Mouth exam: PRESENT: dry mucosa, tongue midline Respiratory exam: PRESENT: clear to auscultation kristian, symmetrical, unlabored. ABSENT: accessory muscle use, rales, rhonchi, tachypnea, wheezes Cardiovascular exam: PRESENT: RRR, +S1, +S2 GI/Abdominal exam: PRESENT: normal bowel sounds, soft, other - wound dressing on the left. ABSENT: distended, tenderness Rectal exam: PRESENT: deferred Extremities exam: ABSENT: pedal edema Neurological exam: PRESENT: awake, oriented to person, oriented to place, oriented to situation. ABSENT: alert - sleepy post procedure Psychiatric exam: PRESENT: flat affect. ABSENT: agitated, anxious Focused psych exam: ABSENT: delusional, restlessness Results Laboratory Results: 08/26/18 05:17 08/26/18 05:17 08/26/18 08/26/18 05:17 05:17 WBC 9.5 RBC 2.48 L Hgb 8.5 L Hct 24.9 L MCV 100 H MCH 34.1 H MCHC 34.1 RDW 23.7 H Plt Count 119 L Seg Neutrophils % 62.8 Lymphocytes % 22.0 Monocytes % 12.2 Eosinophils % 2.6 Basophils % 0.4 Absolute Neutrophils 6.0 Absolute Lymphocytes 2.1 Absolute Monocytes 1.2 Absolute Eosinophils 0.2 Absolute Basophils 0.0 Sodium 136.8 L Potassium 3.2 L Chloride 106 Carbon Dioxide 25 Anion Gap 6 BUN < 2 L Creatinine 0.41 L Est GFR ( Amer) > 60 Est GFR (Non-Af Amer) > 60 Glucose 104 Calcium 7.8 L Magnesium 1.5 L Total Bilirubin 2.1 H AST 50 H ALT 23 Alkaline Phosphatase 99 Total Protein 5.1 L Albumin 2.0 L Prealbumin < 3.0 L Impressions: Pelvis CT 08/20/18 07:39 IMPRESSION: NO SIGNIFICANT OR ACUTE FINDINGS IN THE PELVIS. NO EVIDENCE OF PERIANAL OR PERIRECTAL ABSCESS. Chest X-Ray 08/23/18 00:00 IMPRESSION: 1. Bilateral diffuse asymmetric airspace disease in the lungs, more so on the left, may be on the basis of edema or infiltrates. 2. Mild prominence of the pulmonary vasculature suggest congestion. Assessment and Plan - Diagnosis (1) Sepsis Qualifiers: Sepsis type: sepsis due to unspecified organism Qualified Code(s): A41.9 - Sepsis, unspecified organism Is this a current diagnosis for this admission?: Yes Plan: 08/24/2017-the patient's lactic acid was still slightly elevated several days ago. A repeat study has been ordered. The cystitis revealed Klebsiella. The wound culture revealed Klebsiella as well as Citrobacter and group B strep. I will narrow the spectrum of antibiotics to the ceftriaxone. She has no fever. 08/25/2017-continue ceftriaxone for the multiple gram-negative organisms. White blood cell count is now normal. 08/26/2017. The patient is still having some discomfort at the surgical sites. She will benefit from home health for wound care. She will be able to complete her antibiotic therapy with oral medications at home. (2) Acute and chronic respiratory failure with hypoxia Is this a current diagnosis for this admission?: Yes Plan: 08/24/2018-continue nebulizer treatments. Consider starting combination inhaler and change the nebulizer treatments to as needed. 08/25/2018-ongoing nebulizer treatments the patient potentially has an endoscopy for tomorrow. I will then introduce a combination inhaler and try and wean the patient's from nebulizer treatments. 08/26/2018-I have initiated Brio Ellipta. I have changed her nebulizers to as needed. I have also asked for nocturnal oximetry and ambulating oximetry for qualification of home oxygen. (3) Cellulitis, gluteal Is this a current diagnosis for this admission?: Yes Plan: History of present right gluteal abscess status post drainage in ED. Likely polymicrobial description phi and fecal contamination. DC clindamycin. Continue IV ceftriaxone. Wound culture positive for gram-negative rods, pending sensitivity. Switch to p.o. antibiotics once sensitivity available. 08/24/2018-patient has history of right gluteal abscess status post I&D in the emergency room. On IV ceftriaxone. Cultures came back positive for gram- negative rods and group B streptococcus. Wound cultures were positive for Klebsiella, Citrobacter, repeat Streptococcus. IV levofloxacin added to the medication. Surgical consult is going to be requested for further evaluation. 08/25/2018-wound care per surgery. Continue ceftriaxone at this time. 08/26/2018-the patient will need antibiotics as an outpatient. She will also need wound care. I have asked for home health at discharge. (4) Diabetes type 2, controlled Qualifiers: Diabetes mellitus mcfp insulin use: without terminal manager use Diabetes mellitus complication status: without complication Qualified Code(s): E11.9 - Type 2 diabetes mellitus without complications Is this a current diagnosis for this admission?: Yes Plan: 08/24/2018-the patient exhibits good Accu-Cheks. When her diet is consistent I will resume her metformin. [id number] are consistently under 200. She is n.p.o. after midnight for possible endoscopy. I will likely resume her metformin when she resumes an oral diet. 08/26/2018-resume metformin. (5) Acute UTI Is this a current diagnosis for this admission?: Yes Plan: 08/24/2018-urine cultures positive for Klebsiella. It is quite sensitive. I will continue the ceftriaxone at this time. 08/25/2018-continue ceftriaxone. 08/26/2018-complete treatment as an outpatient on oral antibiotics. (6) Hypomagnesemia Is this a current diagnosis for this admission?: Yes Plan: 08/24/2018-magnesium level is low. We will replete by IV and start daily magnesium oxide dosing. Continue to follow magnesium level. 08/25/2018-magnesium level is normal today. Continue to follow. 08/26/2018-continue oral magnesium supplement. Will need to monitor magnesium levels while on Protonix. (7) Lactic acidosis Is this a current diagnosis for this admission?: Yes Plan: 08/24/2018-repeat lactic acid to ensure complete resolution. 08/25/2018-serum lactic acid is back in the normal range. 08/26/2018-resolved (8) Anemia Qualifiers: Anemia type: other cause Is this a current diagnosis for this admission?: Yes Plan: 08/24/2018-the patient has received transfusions before. Her stool was Hemoccult positive. She also reports history of a gastric ulcer. This could be due to chronic low-grade blood loss. I will request a consultation from gastroenterology. Because her hemoglobin was low again I have ordered 2 units of packed red blood cells. 08/25/2018-anemia is likely due to chronic blood loss. Also her chronic illnesses contribute. She did receive 2 units of packed red blood cells. Continue to monitor her hemoglobin. Consider a multivitamin with iron. Appreciate Dr. Hall's input. Planning for gastroscopy tomorrow if the patient will consent. I have switch the patient to 40 mg of Protonix twice daily. 08/26/2018-endoscopy was performed today. Dr. Rodgers called me. There was no visible ulceration or evidence of bleeding. Because she had gastric bypass surgery all of surface area could be visualized. The patient's hemoglobin has been stable for several days. I will check it again tomorrow. The patient should remain on a multivitamin and iron. She will need follow-up blood work. We will encourage cessation from alcohol and ongoing PPI use. (9) Abdominal wall abscess Is this a current diagnosis for this admission?: Yes Plan: 08/24/2018-resected by Dr. Rodgers. Dressing changes per surgery. She is already on antibiotics for the Klebsiella in the urine as well as multiple organisms in the buttock ulcer. 08/25/2018-wound care per surgery. Continue ceftriaxone. 08/26/2018-continue wound care. Currently saline moist dressings. Will start with home health wound care and follow-up with general surgery. - Time Time Spent with patient: Less than 15 minutes Medications reviewed and adjusted accordingly: Yes Anticipated discharge: Home Within: within 48 hours
[2018-08-26] MEDS: CEFTRIAXONE SODIUM 1,000 MG in DEXTROSE 5%-WATER 50 ML IV SCH (17:31)
[2018-08-26] MEDS: METFORMIN HCL 500 MG TABLET PO SCH (17:31)
[2018-08-26] MEDS: FOLIC ACID/VITAMIN B COMP W-C CAPSULE PO SCH (17:32)
[2018-08-26] MEDS: LORAZEPAM INJ 2 MG/1 ML VIAL IV PRN ×2 (17:32→23:33)
[2018-08-27] MEDS: IPRATROPIUM/ALBUTEROL 0.5-2.5 MG/3 ML AMPUL NEB PRN ×2 (02:36→12:09)
[2018-08-27] MEDS: PANTOPRAZOLE SODIUM 40 MG TABLET.DR PO SCH ×2 (05:20→19:08)
[2018-08-27] MEDS: OXYCODONE HCL IR 5 MG TABLET PO PRN ×2 (06:50→19:13)
[2018-08-27 07:05] LABS: HEMATOCRIT 25.3 % (36.0-47.0); HEMOGLOBIN 8.6 g/dL (12.0-15.5); MEAN CORPUSCULAR HEMOGLOBIN 34.1 pg (27.0-33.4); MEAN CORPUSCULAR HGB CONC 33.9 g/dL (32.0-36.0); MEAN CORPUSCULAR VOLUME 101 fl (80-97); PLATELET COUNT 133 10^3/uL (150-450); RED BLOOD COUNT 2.52 10^6/uL (3.72-5.28); RED CELL DISTRIBUTION WIDTH 23.5 % (11.5-14.0); WHITE BLOOD COUNT 10.1 10^3/uL (4.0-10.5)
[2018-08-27 07:26] LABS: ANION GAP 7 (5-19); CALCIUM 7.9 mg/dL (8.4-10.2); CARBON DIOXIDE 24 mmol/L (22-30); CHLORIDE 106 mmol/L (98-107); GLUCOSE 140 mg/dL (75-110); POTASSIUM 3.2 mmol/L (3.6-5.0); SODIUM 136.6 mmol/L (137-145)
[2018-08-27 07:27] LABS: BLOOD UREA NITROGEN < 2 mg/dL (7-20)
[2018-08-27] MEDS ORDERED: POTASSIUM CHLORIDE 10 MEQ CAPSULE.ER PO SCH (10:00)
[2018-08-27] MEDS: INSULIN LISPRO 100 UNIT/ML 3 ML VIAL SUBCUT SCH ×4 (11:03→22:15)
[2018-08-27] MEDS: MAGNESIUM OXIDE 400 MG TABLET PO SCH ×2 (11:04→19:13)
[2018-08-27] MEDS: ESCITALOPRAM OXALATE 10 MG TABLET PO SCH (11:04)
[2018-08-27] MEDS: BUSPIRONE HCL 10 MG TABLET PO SCH ×2 (11:04→21:10)
[2018-08-27] MEDS: DOCUSATE SODIUM 100 MG CAPSULE PO SCH (11:06)
[2018-08-27] MEDS: METFORMIN HCL 500 MG TABLET PO SCH ×2 (11:07→19:12)
[2018-08-27] MEDS: FUROSEMIDE 40 MG TABLET PO SCH (11:07)
[2018-08-27] MEDS: NICOTINE 21 MG/24 HR PATCH.TD24 TD SCH (11:08)
[2018-08-27] MEDS: TRAZODONE HCL 50 MG TABLET PO SCH (11:08)
[2018-08-27] MEDS ORDERED: FLUCONAZOLE 100 MG TABLET PO ONE (12:30)
[2018-08-27 16:28] LABS: ALBUMIN 2.1 g/dL (3.5-5.0); ASPARTATE AMINO TRANSFERASE 52 U/L (14-36)
[2018-08-27 16:29] LABS: ALANINE AMINOTRANSFERASE 28 U/L (9-52); ALKALINE PHOSPHATASE 101 U/L (38-126); BILIRUBIN,TOTAL 1.8 mg/dL (0.2-1.3); TOTAL PROTEIN 5.4 g/dL (6.3-8.2)
[2018-08-27] MEDS: ENOXAPARIN SODIUM INJ 40 MG/0.4 ML DISP.SYRIN SUBCUT SCH (16:36)
[2018-08-27] MEDS: NYSTATIN/DEXAMETH/DIPHEN SUSP 120 ML PO SCH ×3 (16:37→21:08)
[2018-08-27] MEDS: FLUTICASONE/VILANTEROL 100-25 MCG/DOSE IH SCH (16:37)
[2018-08-27] MEDS: FOLIC ACID/VITAMIN B COMP W-C CAPSULE PO SCH (19:08)
[2018-08-27] MEDS: POTASSIUM CHLORIDE 10 MEQ CAPSULE.ER PO SCH (19:13)
[2018-08-27] MEDS: CEFTRIAXONE SODIUM 1,000 MG in DEXTROSE 5%-WATER 50 ML IV SCH (19:13)
--- NOTE | 2018-08-27 19:52 | PDOC PROGRESS REPORT ---
Subjective Progress Note for:: 08/27/18 Subjective:: The patient is resting in bed. She feels that her left leg is swollen from the gluteal wound. She also complains of yeast vaginitis. Reason For Visit: UTI, CELLULITIS, SEPSIS Physical Exam Vital Signs: Temp Pulse Resp BP Pulse Ox 98.3 F 93 18 100/58 L 95 08/27/18 06:38 08/27/18 07:00 08/27/18 06:38 08/27/18 06:38 08/27/18 06:38 Pulse Oximeter Nocturnal Start: 08/26/18 15:54 Freq: RTQ4 Status: Complete Protocol: Document 08/27/18 04:26 NSM (Rec: 08/27/18 04:27 NSM [id number]) Nocturnal Pulse Oximetry Equipment Usage Equipment in Use Oxygen Delivery Method (includes room CPAP air) O2 Sat by Pulse Oximetry (92-100) 94 Continuous Pulse Oximeter Set Up No Continuous SpO2 Discontinued No Continuous SpO2 Machine # N1 Intake & Output 08/26/18 08/27/18 08/28/18 06:59 06:59 06:59 Intake Total 675 1380 Output Total 2000 0 Balance -1325 1380 Weight 103.7 kg 87.3 kg General appearance: PRESENT: no acute distress, cooperative, well-developed Head exam: PRESENT: atraumatic, normocephalic Ear exam: PRESENT: normal external ear exam Mouth exam: PRESENT: moist, tongue midline Teeth exam: PRESENT: poor dentation Respiratory exam: PRESENT: clear to auscultation kristina, symmetrical, unlabored. ABSENT: rales, rhonchi, tachypnea, wheezes Cardiovascular exam: PRESENT: RRR, +S1, +S2 GI/Abdominal exam: PRESENT: normal bowel sounds, soft. ABSENT: distended, tenderness Extremities exam: PRESENT: pedal edema, +1 edema. ABSENT: calf tenderness Neurological exam: PRESENT: alert, awake, oriented to person, oriented to place, oriented to time, oriented to situation Psychiatric exam: PRESENT: flat affect. ABSENT: agitated, anxious Focused psych exam: ABSENT: delusional, restlessness Results Laboratory Results: 08/27/18 06:24 08/27/18 06:24 08/27/18 08/27/18 06:24 06:24 WBC 10.1 RBC 2.52 L Hgb 8.6 L Hct 25.3 L MCV 101 H MCH 34.1 H MCHC 33.9 RDW 23.5 H Plt Count 133 L Sodium 136.6 L Potassium 3.2 L Chloride 106 Carbon Dioxide 24 Anion Gap 7 BUN < 2 L Creatinine 0.44 L Est GFR ( Amer) > 60 Est GFR (Non-Af Amer) > 60 Glucose 140 H Calcium 7.9 L Impressions: Pelvis CT 08/20/18 07:39 IMPRESSION: NO SIGNIFICANT OR ACUTE FINDINGS IN THE PELVIS. NO EVIDENCE OF PERIANAL OR PERIRECTAL ABSCESS. Chest X-Ray 08/23/18 00:00 IMPRESSION: 1. Bilateral diffuse asymmetric airspace disease in the lungs, more so on the left, may be on the basis of edema or infiltrates. 2. Mild prominence of the pulmonary vasculature suggest congestion. Assessment and Plan - Diagnosis (1) Sepsis Qualifiers: Sepsis type: sepsis due to unspecified organism Qualified Code(s): A41.9 - Sepsis, unspecified organism Is this a current diagnosis for this admission?: Yes Plan: 08/24/2018-the patient's lactic acid was still slightly elevated several days ago. A repeat study has been ordered. The cystitis revealed Klebsiella. The wound culture revealed Klebsiella as well as Citrobacter and group B strep. I will narrow the spectrum of antibiotics to the ceftriaxone. She has no fever. 08/25/2018-continue ceftriaxone for the multiple gram-negative organisms. White blood cell count is now normal. 08/26/2018. The patient is still having some discomfort at the surgical sites. She will benefit from home health for wound care. She will be able to complete her antibiotic therapy with oral medications at home. 08/27/2018-sepsis resolved. Ongoing antibiotic therapy for the abscesses. (2) Acute and chronic respiratory failure with hypoxia Is this a current diagnosis for this admission?: Yes Plan: 08/24/2018-continue nebulizer treatments. Consider starting combination inhaler and change the nebulizer treatments to as needed. 08/25/2018-ongoing nebulizer treatments the patient potentially has an endoscopy for tomorrow. I will then introduce a combination inhaler and try and wean the patient's from nebulizer treatments. 08/26/2018-I have initiated Brio Ellipta. I have changed her nebulizers to as needed. I have also asked for nocturnal oximetry and ambulating oximetry for qualification of home oxygen. 08/27/2018-still on oxygen therapy. We have initiated combination inhaler therapy and attempt to wean her from the nebulizer. She may need oxygen at home. (3) Cellulitis, gluteal Is this a current diagnosis for this admission?: Yes Plan: History of present right gluteal abscess status post drainage in ED. Likely polymicrobial description phi and fecal contamination. DC clindamycin. Continue IV ceftriaxone. Wound culture positive for gram-negative rods, pending sensitivity. Switch to p.o. antibiotics once sensitivity available. 08/24/2018-patient has history of right gluteal abscess status post I&D in the emergency room. On IV ceftriaxone. Cultures came back positive for gram- negative rods and group B streptococcus. Wound cultures were positive for Klebsiella, Citrobacter, repeat Streptococcus. IV levofloxacin added to the medication. Surgical consult is going to be requested for further evaluation. 08/25/2018-wound care per surgery. Continue ceftriaxone at this time. 08/26/2018-the patient will need antibiotics as an outpatient. She will also need wound care. I have asked for home health at discharge. 08/27/2018-continues to heal by intention. That remains open. Staff reports that it continues to heal slowly. (4) Diabetes type 2, controlled Qualifiers: Diabetes mellitus halfway insulin use: without halfway use Diabetes mellitus complication status: without complication Qualified Code(s): E11.9 - Type 2 diabetes mellitus without complications Is this a current diagnosis for this admission?: Yes Plan: 08/24/2018-the patient exhibits good Accu-Cheks. When her diet is consistent I will resume her metformin. [id number] are consistently under 200. She is n.p.o. after midnight for possible endoscopy. I will likely resume her metformin when she resumes an oral diet. 08/26/2018-resume metformin. 08/27/2018. We have resumed her metformin. Accu-Cheks remain stable. (5) Acute UTI Is this a current diagnosis for this admission?: Yes Plan: 08/24/2018-urine cultures positive for Klebsiella. It is quite sensitive. I will continue the ceftriaxone at this time. 08/25/2018-continue ceftriaxone. 08/26/2018-complete treatment as an outpatient on oral antibiotics. 08/27/2018-the patient may very well complete the IV antibiotics during this admission. If not complete as an outpatient. (6) Hypomagnesemia Is this a current diagnosis for this admission?: Yes Plan: 08/24/2018-magnesium level is low. We will replete by IV and start daily magnesium oxide dosing. Continue to follow magnesium level. 08/25/2018-magnesium level is normal today. Continue to follow. 08/26/2018-continue oral magnesium supplement. Will need to monitor magnesium levels while on Protonix. 08/27/2018-continue to monitor serum magnesium. (7) Lactic acidosis Is this a current diagnosis for this admission?: Yes Plan: 08/24/2018-repeat lactic acid to ensure complete resolution. 08/25/2018-serum lactic acid is back in the normal range. 08/26/2018-resolved (8) Anemia Qualifiers: Anemia type: other cause Is this a current diagnosis for this admission?: Yes Plan: 08/24/2018-the patient has received transfusions before. Her stool was Hemoccult positive. She also reports history of a gastric ulcer. This could be due to chronic low-grade blood loss. I will request a consultation from gastroenterology. Because her hemoglobin was low again I have ordered 2 units of packed red blood cells. 08/25/2018-anemia is likely due to chronic blood loss. Also her chronic illnesses contribute. She did receive 2 units of packed red blood cells. Continue to monitor her hemoglobin. Consider a multivitamin with iron. Appreciate Dr. Hall's input. Planning for gastroscopy tomorrow if the patient will consent. I have switch the patient to 40 mg of Protonix twice daily. 08/26/2018-endoscopy was performed today. Dr. Rodgers called me. There was no visible ulceration or evidence of bleeding. Because she had gastric bypass surgery all of surface area could be visualized. The patient's hemoglobin has been stable for several days. I will check it again tomorrow. The patient should remain on a multivitamin and iron. She will need follow-up blood work. We will encourage cessation from alcohol and ongoing PPI use. 08/27/2018-continue to monitor hemoglobin. (9) Abdominal wall abscess Is this a current diagnosis for this admission?: Yes Plan: 08/24/2018-resected by Dr. Rodgers. Dressing changes per surgery. She is already on antibiotics for the Klebsiella in the urine as well as multiple organisms in the buttock ulcer. 08/25/2018-wound care per surgery. Continue ceftriaxone. 08/26/2018-continue wound care. Currently saline moist dressings. Will start with home health wound care and follow-up with general surgery. 08/27/2018-the wound was examined today. There is excellent granulation tissue formation. There is no purulent drainage. - Time Time Spent with patient: 15-24 minutes Medications reviewed and adjusted accordingly: Yes Anticipated discharge: Home
[2018-08-27] MEDS: SPIRONOLACTONE 25 MG TABLET PO SCH (21:10)
[2018-08-27] MEDS: LORAZEPAM INJ 2 MG/1 ML VIAL IV PRN (22:15)
[2018-08-28] MEDS: OXYCODONE HCL IR 5 MG TABLET PO PRN ×4 (04:57→21:10)
[2018-08-28] MEDS: PANTOPRAZOLE SODIUM 40 MG TABLET.DR PO SCH ×2 (05:01→16:27)
[2018-08-28 05:50] LABS: ALANINE AMINOTRANSFERASE 26 U/L (9-52); ALBUMIN 2.4 g/dL (3.5-5.0); ALKALINE PHOSPHATASE 116 U/L (38-126); ANION GAP 6 (5-19); ASPARTATE AMINO TRANSFERASE 62 U/L (14-36); BILIRUBIN,TOTAL 1.9 mg/dL (0.2-1.3); BLOOD UREA NITROGEN < 2 mg/dL (7-20); CALCIUM 8.4 mg/dL (8.4-10.2); CARBON DIOXIDE 26 mmol/L (22-30); CHLORIDE 105 mmol/L (98-107); GLUCOSE 90 mg/dL (75-110); POTASSIUM 3.6 mmol/L (3.6-5.0); SODIUM 137.4 mmol/L (137-145)
[2018-08-28] MEDS: INSULIN LISPRO 100 UNIT/ML 3 ML VIAL SUBCUT SCH ×4 (08:05→22:01)
[2018-08-28] MEDS: MAGNESIUM OXIDE 400 MG TABLET PO SCH ×2 (10:18→17:09)
[2018-08-28] MEDS: ESCITALOPRAM OXALATE 10 MG TABLET PO SCH (10:18)
[2018-08-28] MEDS: NICOTINE 21 MG/24 HR PATCH.TD24 TD SCH (10:19)
[2018-08-28] MEDS: FUROSEMIDE 40 MG TABLET PO SCH (10:19)
[2018-08-28] MEDS: POTASSIUM CHLORIDE 10 MEQ CAPSULE.ER PO SCH ×2 (10:19→17:09)
[2018-08-28] MEDS: BUSPIRONE HCL 10 MG TABLET PO SCH ×2 (10:19→21:10)
[2018-08-28] MEDS: METFORMIN HCL 500 MG TABLET PO SCH ×2 (10:19→17:10)
[2018-08-28] MEDS: SPIRONOLACTONE 25 MG TABLET PO SCH ×2 (10:19→21:10)
[2018-08-28] MEDS: DOCUSATE SODIUM 100 MG CAPSULE PO SCH (10:19)
[2018-08-28] MEDS: TRAZODONE HCL 50 MG TABLET PO SCH (10:19)
[2018-08-28] MEDS: NYSTATIN/DEXAMETH/DIPHEN SUSP 120 ML PO SCH ×4 (10:20→21:13)
[2018-08-28] MEDS: ENOXAPARIN SODIUM INJ 40 MG/0.4 ML DISP.SYRIN SUBCUT SCH (10:20)
[2018-08-28] MEDS: FLUTICASONE/VILANTEROL 100-25 MCG/DOSE IH SCH (10:21)
--- NOTE | 2018-08-28 15:38 | PDOC PROGRESS REPORT ---
Subjective Progress Note for:: 08/28/18 Subjective:: 48-year-old female has medical history of obesity, hypertension, asthma, COPD, diabetes, EtOH abuse, tobacco abuse, depression, anxiety, diabetes, who had recently visited ED for drainage of left gluteal abscess, and was sent home on oral antibiotics, patient was doing fine until she noticed drainage and pain on the right gluteal region. Initial impression was recurrent abscess, CT pelvis and bedside ultrasound in ED not show any drainable collection, was negative for any air consistent with necrotizing fasciitis. Was noted to be hypotensive, elevated lactic acid and leukocytosis. She was started on volume resuscitation and IV empiric antibiotics and hospital was consulted for admission. No acute events overnight. Reason For Visit: UTI, CELLULITIS, SEPSIS Physical Exam Vital Signs: Temp Pulse Resp BP Pulse Ox 98.2 F 99 20 100/67 99 08/28/18 11:41 08/28/18 14:00 08/28/18 11:41 08/28/18 11:41 08/28/18 11:41 Pulse Oximeter Ambulatory Start: 08/26/18 15:54 Freq: RTDAILY Status: Active Protocol: Document 08/27/18 12:12 LDA (Rec: 08/27/18 12:13 LDA [id number]) Exercise Oximetry Treatment Ambulating SpO2 Charge Now No Additional RT Notes Other pt. short of wind, gave breathing treatment Pulse Oximeter Nocturnal Start: 08/26/18 15:54 Freq: RTQ4 Status: Complete Protocol: Document 08/27/18 04:26 NSM (Rec: 08/27/18 04:27 NSM [id number]) Nocturnal Pulse Oximetry Equipment Usage Equipment in Use Oxygen Delivery Method (includes room CPAP air) O2 Sat by Pulse Oximetry (92-100) 94 Continuous Pulse Oximeter Set Up No Continuous SpO2 Discontinued No Continuous SpO2 Machine # N1 Intake & Output 08/27/18 08/28/18 08/29/18 06:59 06:59 06:59 Intake Total 1380 1580 360 Output Total 0 500 Balance 1380 1080 360 Weight 87.3 kg 87 kg Results Laboratory Results: 08/27/18 06:24 08/28/18 05:13 08/27/18 08/27/18 08/27/18 06:24 06:24 17:05 Sodium Potassium Chloride Carbon Dioxide Anion Gap BUN Creatinine Est GFR ( Amer) Est GFR (Non-Af Amer) Glucose Calcium Magnesium Total Bilirubin 1.8 H AST 52 H ALT 28 Alkaline Phosphatase 101 Ammonia 13.4 Total Protein 5.4 L Albumin 2.1 L 08/28/18 05:13 Sodium 137.4 Potassium 3.6 Chloride 105 Carbon Dioxide 26 Anion Gap 6 BUN < 2 L Creatinine 0.45 L Est GFR ( Amer) > 60 Est GFR (Non-Af Amer) > 60 Glucose 90 Calcium 8.4 Magnesium 1.4 L Total Bilirubin 1.9 H AST 62 H ALT 26 Alkaline Phosphatase 116 Ammonia Total Protein 6.0 L Albumin 2.4 L Impressions: Pelvis CT 08/20/18 07:39 IMPRESSION: NO SIGNIFICANT OR ACUTE FINDINGS IN THE PELVIS. NO EVIDENCE OF PERIANAL OR PERIRECTAL ABSCESS. Chest X-Ray 08/23/18 00:00 IMPRESSION: 1. Bilateral diffuse asymmetric airspace disease in the lungs, more so on the left, may be on the basis of edema or infiltrates. 2. Mild prominence of the pulmonary vasculature suggest congestion. Assessment and Plan - Diagnosis (1) Acute and chronic respiratory failure with hypoxia Is this a current diagnosis for this admission?: Yes Plan: Due to #1. Improved. Saturating 97% on 2 L. Drops to high 80s upon ambulation. Will need home O2. Continue nebs, supplemental oxygen, BiPAP, CPAP PRN. 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 Patient does have a risk of gastric ulcer due to history of gastric bypass. 08/26/2018. Endoscopy was done by surgery did not show any evidence of esophage al, gastric pouch or duodenal limb pathology. No source of bleeding was found. However as per surgery note she does have history of gastric bypass remnant and duodenum which are or at risk for ulceration. Unfortunately evaluating this area is very challenging and typically requires a skilled endoscopist using a pediatric colonoscope. Even though patient may have occult ulceration due to gastric bypass and chronic microscopic bleeding; however patient has normal iron study and denies any audi yordan or hematochezia. Patient also have high risk of B12 and copper deficiency due to history of gas tric bypass. Even the B12 was >1000 on admission but being an acute phase reactant B12 level could be falsely elevated as pt presented in sepsis. Of note patient has very smooth tongue with almost no papilla and canker sores which makes B12 deficiency more likely. 08/28/2018. Start vitamin B12 1000 MCG subcutaneous daily. Iron 46.2. TIBC 228, % saturation 20, ferritin 71.1, B12 more than 2000, folic acid 8.1. MCV 106. (3) Sepsis Qualifiers: Sepsis type: sepsis due to unspecified organism Qualified Code(s): A41.9 - Sepsis, unspecified organism Is this a current diagnosis for this admission?: Yes Plan: Resolved. Vitals within normal limits. Initially evidenced by lactic acid 7.8 T-max 99.9. SBP 99/77, SPO2 75% RA. Likely due to underlying combination of UTI and gluteal cellulitis. 08/20/2018. Urine culture positive for Klebsiella pneumonia pansensitive. 08/20/2018. Wound culture positive for cell pneumonia, Citrobacter koseri, group beta Streptococcus. Pansensitive. 08/20/2018. Anterior nares culture negative for MRSA. 08/21/2018: Ceftriaxone 1 mg IV daily day 8. Levofloxacin 750 mg IV daily 08/20/2018 - 08/25/2018. Clindamycin 6 mg IV 08/21/2018/2018 (4) Cellulitis, gluteal Is this a current diagnosis for this admission?: Yes Plan: Status post gluteal abscess I&D by surgery. Continue wound care. Surgery following. Recommendations will be noted. 08/20/2018. Urine culture positive for Klebsiella pneumonia pansensitive. 08/20/2018. Wound culture positive for cell pneumonia, Citrobacter koseri, group beta Streptococcus. Pansensitive. 08/20/2018. Anterior nares culture negative for MRSA. (5) Abdominal wall abscess Is this a current diagnosis for this admission?: Yes Plan: As per #3. (6) Diabetes type 2, controlled Qualifiers: Diabetes mellitus watermaster insulin use: without residential use Diabetes mellitus complication status: without complication Qualified Code(s): E11.9 - Type 2 diabetes mellitus without complications Is this a current diagnosis for this admission?: Yes Plan: Takes metformin as outpatient. Hemoglobin A1c. Diabetic diet, sliding scale insulin, pre-meal insulin, long-acting insulin, adjust dose as needed. Plan is to restart metformin upon discharge. Outpatient PCP follow-up. (7) UTI (urinary tract infection) Is this a current diagnosis for this admission?: Yes Plan: Due to Klebsiella pneumonia. Has received a complete course of IV antibiotics. Currently asymptomatic. 08/20/2018. Urine culture positive for Klebsiella pneumonia pansensitive. 08/20/2018. Wound culture positive for cell pneumonia, Citrobacter koseri, group beta Streptococcus. Pansensitive. 08/20/2018. Anterior nares culture negative for MRSA. (8) Tobacco dependency Is this a current diagnosis for this admission?: No Plan: Start on NicoDerm patch. (9) Hypomagnesemia Is this a current diagnosis for this admission?: Yes Plan: Supplemental magnesium. Magnesium level tomorrow.
[2018-08-28] MEDS: CYANOCOBALAMIN (VITAMIN B-12) INJ 1000 MCG/1 ML VIAL IM SCH (16:23)
[2018-08-28] MEDS: FOLIC ACID/VITAMIN B COMP W-C CAPSULE PO SCH (16:28)
[2018-08-28] MEDS: TRAZODONE HCL 50 MG TABLET PO PRN (23:44)
[2018-08-29] MEDS: OXYCODONE HCL IR 5 MG TABLET PO PRN ×3 (03:50→16:44)
[2018-08-29 04:42] LABS: ABSOLUTE BASOPHILS # (AUTO) 0.1 10^3/uL (0.0-0.2); ABSOLUTE EOSINOPHILS # (AUTO) 0.2 10^3/uL (0.0-0.6); ABSOLUTE LYMPHOCYTES (AUTO) 2.2 10^3/uL (0.5-4.7); ABSOLUTE MONOCYTES (AUTO) 0.7 10^3/uL (0.1-1.4); ABSOLUTE NEUT (AUTO) 5.1 10^3/uL (1.7-8.2); BASOPHILS % (AUTO) 0.8 % (0-2); EOSINOPHILS % (AUTO) 2.5 % (0-6); HEMATOCRIT 26.3 % (36.0-47.0); HEMOGLOBIN 8.7 g/dL (12.0-15.5); LYMPHOCYTES % (AUTO) 26.9 % (13-45); MEAN CORPUSCULAR HEMOGLOBIN 33.7 pg (27.0-33.4); MEAN CORPUSCULAR HGB CONC 33.1 g/dL (32.0-36.0); MEAN CORPUSCULAR VOLUME 102 fl (80-97); PLATELET COUNT 152 10^3/uL (150-450); RED BLOOD COUNT 2.58 10^6/uL (3.72-5.28); SEGMENTED NEUTROPHILS % (AUTO) 61.8 % (42-78); TOTAL CELLS COUNTED % (AUTO) 100 %; WHITE BLOOD COUNT 8.3 10^3/uL (4.0-10.5)
[2018-08-29] MEDS: PANTOPRAZOLE SODIUM 40 MG TABLET.DR PO SCH ×2 (05:04→16:44)
[2018-08-29 05:07] LABS: ALANINE AMINOTRANSFERASE 25 U/L (9-52); ALBUMIN 2.2 g/dL (3.5-5.0); ALKALINE PHOSPHATASE 101 U/L (38-126); ANION GAP 5 (5-19); ASPARTATE AMINO TRANSFERASE 52 U/L (14-36); BILIRUBIN,DIRECT 0.8 mg/dL (0.0-0.4); BILIRUBIN,TOTAL 1.4 mg/dL (0.2-1.3); CALCIUM 8.1 mg/dL (8.4-10.2); CARBON DIOXIDE 27 mmol/L (22-30); CHLORIDE 105 mmol/L (98-107); GLUCOSE 124 mg/dL (75-110); POTASSIUM 3.5 mmol/L (3.6-5.0); SODIUM 136.8 mmol/L (137-145); TOTAL PROTEIN 5.6 g/dL (6.3-8.2)
[2018-08-29 05:15] LABS: BLOOD UREA NITROGEN < 2 mg/dL (7-20)
[2018-08-29] MEDS: INSULIN LISPRO 100 UNIT/ML 3 ML VIAL SUBCUT SCH ×4 (08:03→21:39)
[2018-08-29] MEDS: POTASSIUM CHLORIDE 10 MEQ CAPSULE.ER PO SCH ×2 (09:38→17:10)
[2018-08-29] MEDS: ESCITALOPRAM OXALATE 10 MG TABLET PO SCH (09:38)
[2018-08-29] MEDS: METFORMIN HCL 500 MG TABLET PO SCH ×2 (09:38→17:10)
[2018-08-29] MEDS: BUSPIRONE HCL 10 MG TABLET PO SCH ×2 (09:38→21:39)
[2018-08-29] MEDS: SPIRONOLACTONE 25 MG TABLET PO SCH ×2 (09:39→21:39)
[2018-08-29] MEDS: MAGNESIUM OXIDE 400 MG TABLET PO SCH ×2 (09:39→17:10)
[2018-08-29] MEDS: TRAZODONE HCL 50 MG TABLET PO SCH (09:39)
[2018-08-29] MEDS: ENOXAPARIN SODIUM INJ 40 MG/0.4 ML DISP.SYRIN SUBCUT SCH (09:39)
[2018-08-29] MEDS: DOCUSATE SODIUM 100 MG CAPSULE PO SCH (09:39)
[2018-08-29] MEDS: NICOTINE 21 MG/24 HR PATCH.TD24 TD SCH (09:40)
[2018-08-29] MEDS: FUROSEMIDE 40 MG TABLET PO SCH (09:40)
[2018-08-29] MEDS: CYANOCOBALAMIN (VITAMIN B-12) INJ 1000 MCG/1 ML VIAL IM SCH (09:40)
[2018-08-29] MEDS: FLUTICASONE/VILANTEROL 100-25 MCG/DOSE IH SCH (09:41)
[2018-08-29] MEDS: NYSTATIN/DEXAMETH/DIPHEN SUSP 120 ML PO SCH ×4 (09:41→21:40)
[2018-08-29] MEDS ORDERED: ZOLPIDEM TARTRATE 5 MG TABLET PO PRN (13:46)
[2018-08-29] MEDS ORDERED: CEFTRIAXONE 1 GM/D5W RTU 1 GM/50 ML RTUPB IV SCH (14:30)
--- NOTE | 2018-08-29 14:48 | PDOC PROGRESS REPORT ---
Subjective Progress Note for:: 08/29/18 Subjective:: 48-year-old female has medical history of obesity, hypertension, asthma, COPD, diabetes, EtOH abuse, tobacco abuse, depression, anxiety, diabetes, who had recently visited ED for drainage of left gluteal abscess, and was sent home on oral antibiotics, patient was doing fine until she noticed drainage and pain on the right gluteal region. Initial impression was recurrent abscess, CT pelvis and bedside ultrasound in ED not show any drainable collection, was negative for any air consistent with necrotizing fasciitis. Was noted to be hypotensive, elevated lactic acid and leukocytosis. She was started on volume resuscitation and IV empiric antibiotics and hospital was consulted for admission. 08/29/2017. No acute events overnight. She is complaining of left gluteal fold pain and foul smell. Denies any fever, chills, nausea, vomiting, diarrhea, constipation or any urinary symptoms. Reason For Visit: UTI, CELLULITIS, SEPSIS Physical Exam Vital Signs: Temp Pulse Resp BP Pulse Ox 98.5 F 87 22 H 93/59 L 97 08/29/18 11:27 08/29/18 11:27 08/29/18 11:27 08/29/18 11:27 08/29/18 11:27 Pulse Oximeter Ambulatory Start: 08/26/18 15:54 Freq: RTDAILY Status: Complete Protocol: Document 08/28/18 08:00 LDA (Rec: 08/28/18 15:51 LDA [email or web address]) Exercise Oximetry Treatment Ambulating SpO2 Charge Now No Pulse Oximeter Nocturnal Start: 08/26/18 15:54 Freq: RTQ4 Status: Complete Protocol: Document 08/27/18 04:26 NSM (Rec: 08/27/18 04:27 NSM [id number]) Nocturnal Pulse Oximetry Equipment Usage Equipment in Use Oxygen Delivery Method (includes room CPAP air) O2 Sat by Pulse Oximetry (92-100) 94 Continuous Pulse Oximeter Set Up No Continuous SpO2 Discontinued No Continuous SpO2 Machine # N1 Intake & Output 08/28/18 08/29/18 08/30/18 06:59 06:59 06:59 Intake Total 1580 1690 Output Total 500 Balance 1080 1690 Weight 87 kg 99.7 kg General appearance: PRESENT: morbidly obese, obese Head exam: PRESENT: atraumatic, normocephalic Respiratory exam: PRESENT: clear to auscultation kristina. ABSENT: rales, rhonchi, w heezes GI/Abdominal exam: PRESENT: normal bowel sounds, soft, other - Left gluteal fold erythema. No active discharge, no drainage.. ABSENT: distended, guarding, mass, organolmegaly, rebound, tenderness Extremities exam: PRESENT: full ROM. ABSENT: calf tenderness, clubbing, pedal edema Neurological exam: PRESENT: alert, awake, oriented to person, oriented to place, oriented to time, oriented to situation, CN II-XII grossly intact. ABSENT: motor sensory deficit Results Laboratory Results: 08/29/18 04:25 08/29/18 04:25 08/29/18 08/29/18 04:25 04:25 WBC 8.3 RBC 2.58 L Hgb 8.7 L Hct 26.3 L MCV 102 H MCH 33.7 H MCHC 33.1 RDW 23.0 H Plt Count 152 Seg Neutrophils % 61.8 Lymphocytes % 26.9 Monocytes % 8.0 Eosinophils % 2.5 Basophils % 0.8 Absolute Neutrophils 5.1 Absolute Lymphocytes 2.2 Absolute Monocytes 0.7 Absolute Eosinophils 0.2 Absolute Basophils 0.1 Sodium 136.8 L Potassium 3.5 L Chloride 105 Carbon Dioxide 27 Anion Gap 5 BUN < 2 L Creatinine 0.45 L Est GFR ( Amer) > 60 Est GFR (Non-Af Amer) > 60 Glucose 124 H Calcium 8.1 L Magnesium 1.3 L Total Bilirubin 1.4 H AST 52 H ALT 25 Alkaline Phosphatase 101 Total Protein 5.6 L Albumin 2.2 L Impressions: Pelvis CT 08/20/18 07:39 IMPRESSION: NO SIGNIFICANT OR ACUTE FINDINGS IN THE PELVIS. NO EVIDENCE OF PERIANAL OR PERIRECTAL ABSCESS. Chest X-Ray 08/23/18 00:00 IMPRESSION: 1. Bilateral diffuse asymmetric airspace disease in the lungs, more so on the left, may be on the basis of edema or infiltrates. 2. Mild prominence of the pulmonary vasculature suggest congestion. Assessment and Plan - Diagnosis (1) Acute and chronic respiratory failure with hypoxia Is this a current diagnosis for this admission?: Yes Plan: Due to #1. Improved. Saturating 97% on 2 L. Drops to high 80s upon ambulation. Will need home O2. Continue nebs, supplemental oxygen, BiPAP, CPAP PRN. 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 Patient does have a risk of gastric ulcer due to history of gastric bypass. 08/26/2018. Endoscopy was done by surgery did not show any evidence of esophageal, gastric pouch or duodenal limb pathology. No source of bleeding was found. However as per surgery note she does have history of gastric bypass remnant and duodenum which are or at risk for ulceration. Unfortunately evaluating this area is very challenging and typically requires a skilled endoscopist using a pediatric colonoscope. Even though patient may have occult ulceration due to gastric bypass and chronic microscopic bleeding; however patient has normal iron study and denies any melena or hematochezia. Patient also have high risk of B12 and copper deficiency due to history of gastric bypass. Even the B12 was >1000 on admission but being an acute phase reactant B12 level could be falsely elevated as pt presented in sepsis. Of note patient has very smooth tongue with almost no papilla and canker sores which makes B12 deficiency more likely. 08/28/2018. Start vitamin B12 1000 MCG subcutaneous daily. Iron 46.2. TIBC 228, % saturation 20, ferritin 71.1, B12 more than 2000, folic acid 8.1. MCV 106. (3) Sepsis Qualifiers: Sepsis type: sepsis due to unspecified organism Qualified Code(s): A41.9 - Sepsis, unspecified organism Is this a current diagnosis for this admission?: Yes Plan: Resolved. Vitals within normal limits. Initially evidenced by lactic acid 7.8 T-max 99.9. SBP 99/77, SPO2 75% RA. Likely due to underlying combination of UTI and gluteal cellulitis. 08/20/2018. Urine culture positive for Klebsiella pneumonia pansensitive. 08/20/2018. Wound culture positive for cell pneumonia, Citrobacter koseri, group beta Streptococcus. Pansensitive. 08/20/2018. Anterior nares culture negative for MRSA. 08/21/2018: Ceftriaxone 1 mg IV daily day 9. Levofloxacin 750 mg IV daily 08/20/2018 - 08/25/2018. Clindamycin 6 mg IV 08/21/2018 (4) Cellulitis, gluteal Is this a current diagnosis for this admission?: Yes Plan: Status post gluteal abscess I&D by surgery. Continue wound care. Surgery following. Recommendations will be noted. 08/20/2018. Urine culture positive for Klebsiella pneumonia pansensitive. 08/20/2018. Wound culture positive for cell pneumonia, Citrobacter koseri, group beta Streptococcus. Pansensitive. 08/20/2018. Anterior nares culture negative for MRSA. (5) Abdominal wall abscess Is this a current diagnosis for this admission?: Yes Plan: As per #3. (6) Diabetes type 2, controlled Qualifiers: Diabetes mellitus terminologist insulin use: without senior care use Diabetes mellitus complication status: without complication Qualified Code(s): E11.9 - Type 2 diabetes mellitus without complications Is this a current diagnosis for this admission?: Yes Plan: Takes metformin as outpatient. Hemoglobin A1c. Diabetic diet, sliding scale insulin, pre-meal insulin, long-acting insulin, adjust dose as needed. Plan is to restart metformin upon discharge. Outpatient PCP follow-up. (7) UTI (urinary tract infection) Is this a current diagnosis for this admission?: Yes Plan: Due to Klebsiella pneumonia. Has received a complete course of IV antibiotics. Currently asymptomatic. 08/20/2018. Urine culture positive for Klebsiella pneumonia pansensitive. 08/20/2018. Wound culture positive for cell pneumonia, Citrobacter koseri, group beta Streptococcus. Pansensitive. 08/20/2018. Anterior nares culture negative for MRSA. (8) Tobacco dependency Is this a current diagnosis for this admission?: No Plan: Start on NicoDerm patch. (9) Hypomagnesemia Is this a current diagnosis for this admission?: Yes Plan: Continue supplemental magnesium. Magnesium level tomorrow. (10) Obesity (BMI 30.0-34.9) Is this a current diagnosis for this admission?: No Plan: History of gastric bypass. Continue diet and lifestyle modification.
[2018-08-29] MEDS ORDERED: NYSTATIN CREAM 15 GM TP ONE (15:30)
[2018-08-29] MEDS ORDERED: FLUCONAZOLE 100 MG TABLET PO ONE (15:30)
[2018-08-29] MEDS: FOLIC ACID/VITAMIN B COMP W-C CAPSULE PO SCH (16:44)
[2018-08-29] MEDS: PHOSPHORUS #1 250 MG TABLET PO SCH (16:44)
[2018-08-29] MEDS: CEFTRIAXONE SODIUM 1,000 MG in DEXTROSE 5%-WATER 50 ML IV SCH (16:45)
[2018-08-30] MEDS: OXYCODONE HCL IR 5 MG TABLET PO PRN ×4 (04:30→23:26)
[2018-08-30] MEDS: PANTOPRAZOLE SODIUM 40 MG TABLET.DR PO SCH ×2 (05:42→16:44)
[2018-08-30] MEDS: PHOSPHORUS #1 250 MG TABLET PO SCH ×2 (08:05→16:44)
[2018-08-30] MEDS: INSULIN LISPRO 100 UNIT/ML 3 ML VIAL SUBCUT SCH ×4 (08:05→21:55)
[2018-08-30] MEDS: LORAZEPAM 1 MG TABLET PO PRN ×2 (08:38→16:44)
--- NOTE | 2018-08-30 10:13 | PDOC PROGRESS REPORT ---
Subjective Progress Note for:: 08/30/18 Subjective:: Asked to re-evaluate patient for pains left hip area Reason For Visit: UTI, CELLULITIS, SEPSIS Physical Exam Vital Signs: Temp Pulse Resp BP Pulse Ox 98.6 F 84 16 104/65 98 08/30/18 07:29 08/30/18 07:29 08/30/18 07:29 08/30/18 07:29 08/30/18 07:29 Pulse Oximeter Ambulatory Start: 08/26/18 15:54 Freq: RTDAILY Status: Complete Protocol: Document 08/28/18 08:00 LDA (Rec: 08/28/18 15:51 LDA [email or web address]) Exercise Oximetry Treatment Ambulating SpO2 Charge Now No Pulse Oximeter Nocturnal Start: 08/26/18 15:54 Freq: RTQ4 Status: Complete Protocol: Document 08/27/18 04:26 NSM (Rec: 08/27/18 04:27 NSM [id number]) Nocturnal Pulse Oximetry Equipment Usage Equipment in Use Oxygen Delivery Method (includes room CPAP air) O2 Sat by Pulse Oximetry (92-100) 94 Continuous Pulse Oximeter Set Up No Continuous SpO2 Discontinued No Continuous SpO2 Machine # N1 Intake & Output 08/29/18 08/30/18 08/31/18 06:59 06:59 06:59 Intake Total 1690 1982 Balance 1690 1982 Weight 99.7 kg 103.2 kg Exam: Has edema left hip with mild redness and tenderness. Post I&D LLQ abscess site which looks non inflamed at this time. Results Laboratory Results: 08/29/18 04:25 08/29/18 04:25 Impressions: Pelvis CT 08/20/18 07:39 IMPRESSION: NO SIGNIFICANT OR ACUTE FINDINGS IN THE PELVIS. NO EVIDENCE OF PERIANAL OR PERIRECTAL ABSCESS. Chest X-Ray 08/23/18 00:00 IMPRESSION: 1. Bilateral diffuse asymmetric airspace disease in the lungs, more so on the left, may be on the basis of edema or infiltrates. 2. Mild prominence of the pulmonary vasculature suggest congestion. Assessment & Plan - Diagnosis (1) cellulitis left hip area Is this a current diagnosis for this admission?: Yes - Time Time Spent with patient: 15-24 minutes - Inpatient Certification Medical Necessity: Need for IV Antibiotics - Plan Summary Plan Summary: Continue IV antibiotics Will re-evaluate in am Advised to lie primarily on her right side
[2018-08-30] MEDS: POTASSIUM CHLORIDE 10 MEQ CAPSULE.ER PO SCH ×2 (11:00→17:18)
[2018-08-30] MEDS: TRAZODONE HCL 50 MG TABLET PO SCH (11:00)
[2018-08-30] MEDS: ESCITALOPRAM OXALATE 10 MG TABLET PO SCH (11:01)
[2018-08-30] MEDS: MAGNESIUM OXIDE 400 MG TABLET PO SCH ×2 (11:01→17:17)
[2018-08-30] MEDS: METFORMIN HCL 500 MG TABLET PO SCH ×2 (11:01→17:18)
[2018-08-30] MEDS: SPIRONOLACTONE 25 MG TABLET PO SCH ×2 (11:01→21:55)
[2018-08-30] MEDS: NICOTINE 21 MG/24 HR PATCH.TD24 TD SCH (11:02)
[2018-08-30] MEDS: CYANOCOBALAMIN (VITAMIN B-12) INJ 1000 MCG/1 ML VIAL IM SCH (11:02)
[2018-08-30] MEDS: ENOXAPARIN SODIUM INJ 40 MG/0.4 ML DISP.SYRIN SUBCUT SCH (11:02)
[2018-08-30] MEDS: FLUTICASONE/VILANTEROL 100-25 MCG/DOSE IH SCH (11:02)
[2018-08-30] MEDS: BUSPIRONE HCL 10 MG TABLET PO SCH ×2 (11:02→21:55)
[2018-08-30] MEDS: NYSTATIN/DEXAMETH/DIPHEN SUSP 120 ML PO SCH ×4 (11:03→21:58)
[2018-08-30] MEDS: DOCUSATE SODIUM 100 MG CAPSULE PO SCH (11:03)
--- NOTE | 2018-08-30 12:49 | PDOC PROGRESS REPORT ---
Subjective Progress Note for:: 08/30/18 Subjective:: 48-year-old female has medical history of obesity, hypertension, asthma, COPD, diabetes, EtOH abuse, tobacco abuse, depression, anxiety, diabetes, who had recently visited ED for drainage of left gluteal abscess, and was sent home on oral antibiotics, patient was doing fine until she noticed drainage and pain on the right gluteal region. Initial impression was recurrent abscess, CT pelvis and bedside ultrasound in ED not show any drainable collection, was negative for any air consistent with necrotizing fasciitis. Was noted to be hypotensive, elevated lactic acid and leukocytosis. She was started on volume resuscitation and IV empiric antibiotics and hospital was consulted for admission. 08/29/2017. No acute events overnight. She is complaining of left gluteal fold pain and foul smell. Denies any fever, chills, nausea, vomiting, diarrhea, constipation or any urinary symptoms. 08/30/2018. Patient could not sleep overnight, complaining of persistent left hip pain and generalized weakness. Has mild swelling over the hip area and TTP surgery consulted and the recommending reevaluation tomorrow. Denies any fever, chills, nausea, vomiting, diarrhea, constipation or any urinary symptoms. Reason For Visit: UTI, CELLULITIS, SEPSIS Physical Exam Vital Signs: Temp Pulse Resp BP Pulse Ox 98.6 F 84 16 104/65 98 08/30/18 07:29 08/30/18 07:29 08/30/18 07:29 08/30/18 07:29 08/30/18 07:29 Pulse Oximeter Ambulatory Start: 08/26/18 15:54 Freq: RTDAILY Status: Complete Protocol: Document 08/28/18 08:00 LDA (Rec: 08/28/18 15:51 LDA [id number]) Exercise Oximetry Treatment Ambulating SpO2 Charge Now No Pulse Oximeter Nocturnal Start: 08/26/18 15:54 Freq: RTQ4 Status: Complete Protocol: Document 08/27/18 04:26 NSM (Rec: 08/27/18 04:27 NSM [id number]) Nocturnal Pulse Oximetry Equipment Usage Equipment in Use Oxygen Delivery Method (includes room CPAP air) O2 Sat by Pulse Oximetry (92-100) 94 Continuous Pulse Oximeter Set Up No Continuous SpO2 Discontinued No Continuous SpO2 Machine # N1 Intake & Output 08/29/18 08/30/1819 06:59 06:59 06:59 Intake Total 1690 1982 Balance 1690 1982 Weight 99.7 kg 103.2 kg General appearance: PRESENT: no acute distress, obese, well-developed, well- nourished Head exam: PRESENT: atraumatic, normocephalic Neck exam: ABSENT: carotid bruit, JVD, lymphadenopathy, thyromegaly Respiratory exam: PRESENT: clear to auscultation kristina. ABSENT: rales, rhonchi, wheezes Cardiovascular exam: PRESENT: RRR. ABSENT: diastolic murmur, rubs, systolic murmur Pulses: PRESENT: normal dorsalis pedis pul Vascular exam: PRESENT: normal capillary refill GI/Abdominal exam: PRESENT: normal bowel sounds, soft. ABSENT: distended, guarding, mass, organolmegaly, rebound, tenderness Rectal exam: PRESENT: deferred Extremities exam: PRESENT: full ROM, tenderness - There is swelling over the left hip, with TTP, very mild erythema.. ABSENT: calf tenderness, clubbing, pedal edema Neurological exam: PRESENT: alert, awake, oriented to person, oriented to place, oriented to time, oriented to situation, CN II-XII grossly intact. ABSENT: motor sensory deficit Psychiatric exam: PRESENT: appropriate affect, normal mood. ABSENT: homicidal ideation, suicidal ideation Skin exam: PRESENT: dry, intact, warm. ABSENT: cyanosis, rash Results Laboratory Results: 08/29/18 04:25 08/29/18 04:25 Impressions: Pelvis CT 08/20/18 07:39 IMPRESSION: NO SIGNIFICANT OR ACUTE FINDINGS IN THE PELVIS. NO EVIDENCE OF PERIANAL OR PERIRECTAL ABSCESS. Chest X-Ray 08/23/18 00:00 IMPRESSION: 1. Bilateral diffuse asymmetric airspace disease in the lungs, more so on the left, may be on the basis of edema or infiltrates. 2. Mild prominence of the pulmonary vasculature suggest congestion. Assessment and Plan - Diagnosis (1) Acute and chronic respiratory failure with hypoxia Is this a current diagnosis for this admission?: Yes Plan: Due to underlying sepsis. Improved. Saturating 97% on 2 L. Drops to high 80s upon ambulation. Will need home O2. Continue nebs, supplemental oxygen, BiPAP, CPAP PRN. 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 Patient does have a risk of gastric ulcer due to history of gastric bypass. 08/26/2018. Endoscopy was done by surgery did not show any evidence of esophageal, gastric pouch or duodenal limb pathology. No source of bleeding was found. However as per surgery note she does have history of gastric bypass remnant and duodenum which are or at risk for ulceration. Unfortunately evaluating this area is very challenging and typically requires a skilled endoscopist using a pediatric colonoscope. Even though patient may have occult ulceration due to gastric bypass and chronic microscopic bleeding; however patient has normal iron study and denies any melena or hematochezia. Patient also have high risk of B12 and copper deficiency due to history of gastric bypass. Even the B12 was >1000 on admission but being an acute phase reactant B12 level could be falsely elevated as pt presented in sepsis. Of note patient has very smooth tongue with almost no papilla and canker sores which makes B12 deficiency more likely. 08/28/2018. Start vitamin B12 1000 MCG subcutaneous daily. Iron 46.2. TIBC 228, % saturation 20, ferritin 71.1, B12 more than 2000, folic acid 8.1. MCV 106. (3) Sepsis Qualifiers: Sepsis type: sepsis due to unspecified organism Qualified Code(s): A41.9 - Sepsis, unspecified organism Is this a current diagnosis for this admission?: Yes Plan: Resolved. Vitals within normal limits. Initially evidenced by lactic acid 7.8 T-max 99.9. SBP 99/77, SPO2 75% RA. Likely due to underlying combination of UTI and gluteal cellulitis. 08/20/2018. Urine culture positive for Klebsiella pneumonia pansensitive. 08/20/2018. Wound culture positive for cell pneumonia, Citrobacter koseri, group beta Streptococcus. Pansensitive. 08/20/2018. Anterior nares culture negative for MRSA. 08/21/2018: Ceftriaxone 1 mg IV daily day 9. Levofloxacin 750 mg IV daily 08/20/2018 - 08/25/2018. Clindamycin 6 mg IV 08/21/2018 (4) Cellulitis, gluteal Is this a current diagnosis for this admission?: Yes Plan: Status post gluteal abscess I&D by surgery. Continue wound care. Surgery following. Recommendations will be noted. 08/20/2018. Urine culture positive for Klebsiella pneumonia pansensitive. 08/20/2018. Wound culture positive for cell pneumonia, Citrobacter koseri, group beta Streptococcus. Pansensitive. 08/20/2018. Anterior nares culture negative for MRSA. (5) Abdominal wall abscess Is this a current diagnosis for this admission?: Yes Plan: As per #3. (6) Diabetes type 2, controlled Qualifiers: Diabetes mellitus fpc insulin use: without moth exterminator use Diabetes mellitus complication status: without complication Qualified Code(s): E11.9 - Type 2 diabetes mellitus without complications Is this a current diagnosis for this admission?: Yes Plan: Takes metformin as outpatient. Hemoglobin A1c. Diabetic diet, sliding scale insulin, pre-meal insulin, long-acting insulin, adjust dose as needed. Plan is to restart metformin upon discharge. Outpatient PCP follow-up. (7) UTI (urinary tract infection) Is this a current diagnosis for this admission?: Yes Plan: Due to Klebsiella pneumonia. Has received a complete course of IV antibiotics. Currently asymptomatic. 08/20/2018. Urine culture positive for Klebsiella pneumonia pansensitive. 08/20/2018. Wound culture positive for cell pneumonia, Citrobacter koseri, group beta Streptococcus. Pansensitive. 08/20/2018. Anterior nares culture negative for MRSA. (8) Tobacco dependency Is this a current diagnosis for this admission?: No Plan: Start on NicoDerm patch. (9) Hypomagnesemia Is this a current diagnosis for this admission?: Yes Plan: Continue supplemental magnesium. Magnesium level tomorrow.
[2018-08-30] MEDS: CEFTRIAXONE SODIUM 1,000 MG in DEXTROSE 5%-WATER 50 ML IV SCH (12:57)
[2018-08-30 14:48] LABS: ABSOLUTE BASOPHILS # (AUTO) 0.1 10^3/uL (0.0-0.2); ABSOLUTE EOSINOPHILS # (AUTO) 0.2 10^3/uL (0.0-0.6); ABSOLUTE LYMPHOCYTES (AUTO) 2.2 10^3/uL (0.5-4.7); ABSOLUTE MONOCYTES (AUTO) 0.6 10^3/uL (0.1-1.4); ABSOLUTE NEUT (AUTO) 4.8 10^3/uL (1.7-8.2); BASOPHILS % (AUTO) 0.7 % (0-2); EOSINOPHILS % (AUTO) 2.3 % (0-6); HEMATOCRIT 25.8 % (36.0-47.0); HEMOGLOBIN 8.5 g/dL (12.0-15.5); LYMPHOCYTES % (AUTO) 27.7 % (13-45); MEAN CORPUSCULAR HEMOGLOBIN 33.5 pg (27.0-33.4); MEAN CORPUSCULAR HGB CONC 33.1 g/dL (32.0-36.0); MEAN CORPUSCULAR VOLUME 101 fl (80-97); MONOCYTES % (AUTO) 7.4 % (3-13); PLATELET COUNT 176 10^3/uL (150-450); RED BLOOD COUNT 2.55 10^6/uL (3.72-5.28); RED CELL DISTRIBUTION WIDTH 22.4 % (11.5-14.0); SEGMENTED NEUTROPHILS % (AUTO) 61.9 % (42-78); TOTAL CELLS COUNTED % (AUTO) 100 %; WHITE BLOOD COUNT 7.8 10^3/uL (4.0-10.5)
[2018-08-30 15:23] LABS: ALANINE AMINOTRANSFERASE 20 U/L (9-52); ALBUMIN 2.2 g/dL (3.5-5.0); ALKALINE PHOSPHATASE 94 U/L (38-126); ANION GAP 8 (5-19); ASPARTATE AMINO TRANSFERASE 50 U/L (14-36); BILIRUBIN,DIRECT 0.7 mg/dL (0.0-0.4); BILIRUBIN,TOTAL 1.1 mg/dL (0.2-1.3); CALCIUM 7.9 mg/dL (8.4-10.2); CARBON DIOXIDE 27 mmol/L (22-30); CHLORIDE 103 mmol/L (98-107); GLUCOSE 123 mg/dL (75-110); PHOSPHORUS 4.5 mg/dL (2.5-4.5); POTASSIUM 3.4 mmol/L (3.6-5.0); SODIUM 138.3 mmol/L (137-145); TOTAL PROTEIN 5.7 g/dL (6.3-8.2)
[2018-08-30 15:31] LABS: BLOOD UREA NITROGEN < 2 mg/dL (7-20)
[2018-08-30] MEDS: FOLIC ACID/VITAMIN B COMP W-C CAPSULE PO SCH (16:44)
[2018-08-31] MEDS: LORAZEPAM 1 MG TABLET PO PRN ×2 (00:58→12:07)
[2018-08-31] MEDS: PANTOPRAZOLE SODIUM 40 MG TABLET.DR PO SCH ×2 (05:29→16:35)
[2018-08-31] MEDS: OXYCODONE HCL IR 5 MG TABLET PO PRN ×3 (05:30→18:32)
[2018-08-31 07:04] LABS: ABSOLUTE EOSINOPHILS # (AUTO) 0.2 10^3/uL (0.0-0.6); ABSOLUTE LYMPHOCYTES (AUTO) 1.9 10^3/uL (0.5-4.7); ABSOLUTE MONOCYTES (AUTO) 0.5 10^3/uL (0.1-1.4); ABSOLUTE NEUT (AUTO) 4.8 10^3/uL (1.7-8.2); BASOPHILS % (AUTO) 0.6 % (0-2); EOSINOPHILS % (AUTO) 2.3 % (0-6); HEMATOCRIT 25.7 % (36.0-47.0); HEMOGLOBIN 8.6 g/dL (12.0-15.5); LYMPHOCYTES % (AUTO) 25.2 % (13-45); MEAN CORPUSCULAR HEMOGLOBIN 34.1 pg (27.0-33.4); MEAN CORPUSCULAR HGB CONC 33.3 g/dL (32.0-36.0); MEAN CORPUSCULAR VOLUME 102 fl (80-97); MONOCYTES % (AUTO) 7.2 % (3-13); PLATELET COUNT 157 10^3/uL (150-450); RED BLOOD COUNT 2.52 10^6/uL (3.72-5.28); RED CELL DISTRIBUTION WIDTH 22.9 % (11.5-14.0); SEGMENTED NEUTROPHILS % (AUTO) 64.7 % (42-78); TOTAL CELLS COUNTED % (AUTO) 100 %; WHITE BLOOD COUNT 7.5 10^3/uL (4.0-10.5)
[2018-08-31 07:39] LABS: ALANINE AMINOTRANSFERASE 18 U/L (9-52); ALBUMIN 2.1 g/dL (3.5-5.0); ALKALINE PHOSPHATASE 80 U/L (38-126); ANION GAP 6 (5-19); ASPARTATE AMINO TRANSFERASE 46 U/L (14-36); BILIRUBIN,DIRECT 0.7 mg/dL (0.0-0.4); CALCIUM 7.8 mg/dL (8.4-10.2); CARBON DIOXIDE 27 mmol/L (22-30); CHLORIDE 105 mmol/L (98-107); GLUCOSE 150 mg/dL (75-110); POTASSIUM 3.4 mmol/L (3.6-5.0); SODIUM 137.9 mmol/L (137-145); TOTAL PROTEIN 5.3 g/dL (6.3-8.2)
[2018-08-31 07:41] LABS: BLOOD UREA NITROGEN < 2 mg/dL (7-20)
[2018-08-31] MEDS: INSULIN LISPRO 100 UNIT/ML 3 ML VIAL SUBCUT SCH ×3 (09:17→17:24)
[2018-08-31] MEDS: FLUTICASONE/VILANTEROL 100-25 MCG/DOSE IH SCH (10:01)
[2018-08-31] MEDS: BUSPIRONE HCL 10 MG TABLET PO SCH (10:02)
[2018-08-31] MEDS: MAGNESIUM OXIDE 400 MG TABLET PO SCH ×2 (10:02→17:24)
[2018-08-31] MEDS: SPIRONOLACTONE 25 MG TABLET PO SCH (10:02)
[2018-08-31] MEDS: NICOTINE 21 MG/24 HR PATCH.TD24 TD SCH (10:02)
[2018-08-31] MEDS: ESCITALOPRAM OXALATE 10 MG TABLET PO SCH (10:02)
[2018-08-31] MEDS: POTASSIUM CHLORIDE 10 MEQ CAPSULE.ER PO SCH ×2 (10:03→17:24)
[2018-08-31] MEDS: CYANOCOBALAMIN (VITAMIN B-12) INJ 1000 MCG/1 ML VIAL IM SCH (10:03)
[2018-08-31] MEDS: DOCUSATE SODIUM 100 MG CAPSULE PO SCH (10:03)
[2018-08-31] MEDS: NYSTATIN/DEXAMETH/DIPHEN SUSP 120 ML PO SCH ×3 (10:03→17:24)
[2018-08-31] MEDS: TRAZODONE HCL 50 MG TABLET PO SCH (10:03)
[2018-08-31] MEDS: ENOXAPARIN SODIUM INJ 40 MG/0.4 ML DISP.SYRIN SUBCUT SCH (10:03)
[2018-08-31] MEDS: PHOSPHORUS #1 250 MG TABLET PO SCH ×2 (10:03→16:35)
[2018-08-31] MEDS: METFORMIN HCL 500 MG TABLET PO SCH ×2 (10:03→17:24)
[2018-08-31] MEDS ORDERED: CALCIUM GLUCONATE 1000 MG/10 ML INJ IV ONE (11:30)
[2018-08-31] MEDS ORDERED: MAGNESIUM SULFATE/D5W 1 GM/100 ML RTUPB IV ONE (12:00)
[2018-08-31] MEDS: CEFTRIAXONE SODIUM 1,000 MG in DEXTROSE 5%-WATER 50 ML IV SCH (12:07)
[2018-08-31] MEDS: POTASSIUM CHLORIDE 20 MEQ/50 ML RTU IV SCH ×2 (13:45→16:00)
[2018-08-31] MEDS: FOLIC ACID/VITAMIN B COMP W-C CAPSULE PO SCH (16:36)
--- NOTE | 2018-08-31 17:15 | PDOC PROGRESS REPORT ---
Subjective Progress Note for:: 08/31/18 Subjective:: still with some pains left hip area, not any worse Reason For Visit: UTI, CELLULITIS, SEPSIS Physical Exam Vital Signs: Temp Pulse Resp BP Pulse Ox 98.2 F 88 18 93/61 L 95 08/31/18 10:54 08/31/18 14:00 08/31/18 10:54 08/31/18 10:54 08/31/18 10:54 Pulse Oximeter Ambulatory Start: 08/26/18 15:54 Freq: RTDAILY Status: Complete Protocol: Document 08/28/18 08:00 LDA (Rec: 08/28/18 15:51 LDA [id number]) Exercise Oximetry Treatment Ambulating SpO2 Charge Now No Pulse Oximeter Nocturnal Start: 08/26/18 15:54 Freq: RTQ4 Status: Complete Protocol: Document 08/27/18 04:26 NSM (Rec: 08/27/18 04:27 NSM [id number]) Nocturnal Pulse Oximetry Equipment Usage Equipment in Use Oxygen Delivery Method (includes room CPAP air) O2 Sat by Pulse Oximetry (92-100) 94 Continuous Pulse Oximeter Set Up No Continuous SpO2 Discontinued No Continuous SpO2 Machine # N1 Intake & Output 08/30/18 08/31/18 09/01/18 06:59 06:59 06:59 Intake Total 1982 525 150 Balance 1982 525 150 Weight 103.2 kg 103.9 kg Exam: I&D site looks clean and dry without inflammation. Left hip area remains mildly edematous and tender but no localized area that can be drained at this time. Results Laboratory Results: 08/31/18 06:35 08/31/18 06:35 08/31/18 08/31/18 06:35 06:35 WBC 7.5 RBC 2.52 L Hgb 8.6 L Hct 25.7 L MCV 102 H MCH 34.1 H MCHC 33.3 RDW 22.9 H Plt Count 157 Seg Neutrophils % 64.7 Lymphocytes % 25.2 Monocytes % 7.2 Eosinophils % 2.3 Basophils % 0.6 Absolute Neutrophils 4.8 Absolute Lymphocytes 1.9 Absolute Monocytes 0.5 Absolute Eosinophils 0.2 Absolute Basophils 0.0 Sodium 137.9 Potassium 3.4 L Chloride 105 Carbon Dioxide 27 Anion Gap 6 BUN < 2 L Creatinine 0.42 L Est GFR ( Amer) > 60 Est GFR (Non-Af Amer) > 60 Glucose 150 H Calcium 7.8 L Magnesium 1.4 L Total Bilirubin 1.0 AST 46 H ALT 18 Alkaline Phosphatase 80 Total Protein 5.3 L Albumin 2.1 L Impressions: Pelvis CT 08/20/18 07:39 IMPRESSION: NO SIGNIFICANT OR ACUTE FINDINGS IN THE PELVIS. NO EVIDENCE OF PERIANAL OR PERIRECTAL ABSCESS. Chest X-Ray 08/23/18 00:00 IMPRESSION: 1. Bilateral diffuse asymmetric airspace disease in the lungs, more so on the left, may be on the basis of edema or infiltrates. 2. Mild prominence of the pulmonary vasculature suggest congestion. Assessment & Plan - Diagnosis (1) cellulitis left hip area Is this a current diagnosis for this admission?: Yes - Time Time Spent with patient: 15-24 minutes - Plan Summary Plan Summary: OK to discharge home on po antibiotics for at least a week. Appears to have cellulitis with normal WBC. Follow up surgical clinic in 2 weeks or come to ED if pains and redness worsens on the left hip area Patient was instructed.
[2018-08-31 19:04] LABS: CALCIUM 7.8 mg/dL (8.4-10.2); GLUCOSE 132 mg/dL (75-110)
[2018-08-31 19:13] LABS: ANION GAP 5 (5-19); CARBON DIOXIDE 28 mmol/L (22-30); CHLORIDE 104 mmol/L (98-107); SODIUM 136.5 mmol/L (137-145)
[2018-08-31 19:16] LABS: BLOOD UREA NITROGEN < 2 mg/dL (7-20)
[2018-08-31 19:25] VITALS: BP 111/59
--- NOTE | 2018-09-04 15:58 | PDOC DISCHARGE SUMMARY ---
General - Admit/Disc Date/PCP Admission Date/Primary Care Provider: 08/20/18 11:02 Discharge Date: 08/31/18 - Discharge Diagnosis (1) Acute and chronic respiratory failure with hypoxia Is this a current diagnosis for this admission?: Yes (2) Anemia Is this a current diagnosis for this admission?: Yes (3) Sepsis Is this a current diagnosis for this admission?: Yes (4) Cellulitis, gluteal Is this a current diagnosis for this admission?: Yes (5) Abdominal wall abscess Is this a current diagnosis for this admission?: Yes (6) Diabetes type 2, controlled Is this a current diagnosis for this admission?: Yes (7) UTI (urinary tract infection) Is this a current diagnosis for this admission?: Yes (8) Tobacco dependency Is this a current diagnosis for this admission?: No (9) Hypomagnesemia Is this a current diagnosis for this admission?: Yes - Additional Information Resuscitation Status: Full Code Discharge Diet: As Tolerated Discharge Activity: Activity As Tolerated Home Medications: Escitalopram Oxalate [Lexapro] 40 mg PO DAILY 01/10/18 Metformin HCl 500 mg PO BID 01/10/18 Oxycodone HCl [Oxycodone HCl 10 MG Tablet] 10 mg PO Q6HP PRN 08/20/18 Ciprofloxacin HCl [Cipro 500 mg Tablet] 500 mg PO BID #14 tablet 09/04/18 Cyanocobalamin (Vitamin B-12) [Vitamin B-12 SL 2500 mcg Tablet] 2,500 mcg SL DAILY #30 tab.subl 09/04/18 Magnesium Oxide [Magnesium] 800 mg PO BID #40 capsule 09/04/18 Phentermine HCl [Adipex-P] 37.5 mg PO ACBRKFST 09/04/18 Potassium Chloride [Klor-Con 10 Meq Capsule ER] 40 meq PO Q12 #56 tablet.sa 09/04/18 History of Present Illness History of Present Illness: 48-year-old female has medical history of obesity, hypertension, asthma, COPD, diabetes, EtOH abuse, tobacco abuse, depression, anxiety, diabetes, who had recently visited ED for drainage of left gluteal abscess, and was sent home on oral antibiotics, patient was doing fine until she noticed drainage and pain on the right gluteal region. Initial impression was recurrent abscess, CT pelvis and bedside ultrasound in ED not show any drainable collection, was negative for any air consistent with necrotizing fasciitis. Was noted to be hypotensive, elevated lactic acid and leukocytosis. She was started on volume resuscitation and IV empiric antibiotics and hospital was consulted for admission. Hospital Course Hospital Course: (1) Acute and chronic respiratory failure with hypoxia Due to underlying sepsis. Improved. Saturating 97% on 2 L. Drops to high 80s upon ambulation. Sent home on supplemental O2. Continued nebs, supplemental oxygen, BiPAP, CPAP PRN. (2) Anemia Megaloblastic. Patient does have a risk of gastric ulcer due to history of gastric bypass. 08/26/2018. Endoscopy was done by surgery did not show any evidence of esophageal, gastric pouch or duodenal limb pathology. No source of bleeding was found. However as per surgery note she does have history of gastric bypass remnant and duodenum which are or at risk for ulceration. Unfortunately evaluating this area is very challenging and typically requires a skilled endoscopist using a pediatric colonoscope. Even though patient may have occult ulceration due to gastric bypass and chronic microscopic bleeding; however patient has normal iron study and denies any melena or hematochezia. Patient also have high risk of B12 and copper deficiency due to history of gastric bypass. Even the B12 was >1000 on admission but being an acute phase reactant B12 level could be falsely elevated as pt presented in sepsis. Of note patient has very smooth tongue with almost no papilla and canker sores which makes B12 deficiency more likely. 08/28/2018. Start vitamin B12 1000 MCG subcutaneous daily. Iron 46.2. TIBC 228, % saturation 20, ferritin 71.1, B12 more than 2000, folic acid 8.1. MCV 106. Was discharged home on ferrous sulfate, B12 IM, folic acid and multivitamins (3) Sepsis Resolved. Vitals within normal limits. Initially evidenced by lactic acid 7.8 T-max 99.9. SBP 99/77, SPO2 75% RA. Likely due to underlying combination of UTI and gluteal cellulitis. 08/20/2018. Urine culture positive for Klebsiella pneumonia pansensitive. 08/20/2018. Wound culture positive for cell pneumonia, Citrobacter koseri, group beta Streptococcus. Pansensitive. 08/20/2018. Anterior nares culture negative for MRSA. Received ceftriaxone 1 g IV daily from 08/21/2018 2 08/31/2018. Total 10 days. Received levofloxacin 750 mg IV daily 08/20/2018 - 08/25/2018. Received clindamycin 600 mg IV on IV 08/21/2018 Discharged on ciprofloxacin 500 mg p.o. daily for another 14 days. (4) Cellulitis, gluteal Status post gluteal abscess I&D by surgery. Continued wound care. Surgery following. Recommendations will be noted. 08/20/2018. Urine culture positive for Klebsiella pneumonia pansensitive. 08/20/2018. Wound culture positive for cell pneumonia, Citrobacter koseri, group beta Streptococcus. Pansensitive. 08/20/2018. Anterior nares culture negative for MRSA. Received ceftriaxone 1 g IV daily from 08/21/2018 2 08/31/2018. Total 10 days. Received levofloxacin 750 mg IV daily 08/20/2018 - 08/25/2018. Received clindamycin 600 mg IV on IV 08/21/2018 Discharged on ciprofloxacin 500 mg p.o. daily for another 14 days. Notes: 1 day prior to discharge complaining of left gluteal pain erythema, was reassessed by surgery and they recommended patient to be discharged and follow- up with them as outpatient. (5) Abdominal wall abscess As per #4. (6) Diabetes type 2, controlled Takes metformin as outpatient. Hemoglobin A1c. Diabetic diet, sliding scale insulin, pre-meal insulin, long-acting insulin, adjust dose as needed. Plan is to restart metformin upon discharge. Outpatient PCP follow-up. (7) UTI (urinary tract infection) Due to Klebsiella pneumonia. Has received a complete course of IV antibiotics. Currently asymptomatic. 08/20/2018. Urine culture positive for Klebsiella pneumonia pansensitive. 08/20/2018. Wound culture positive for cell pneumonia, Citrobacter koseri, group beta Streptococcus. Pansensitive. 08/20/2018. Anterior nares culture negative for MRSA. (8) Tobacco dependency Start on NicoDerm patch. (9) Hypomagnesemia Continued on supplemental magnesium. Daily magnesium level. Was discharged on magnesium p.o. for another week. Follow-up with PCP. Physical Exam Vital Signs: Temp Pulse Resp BP Pulse Ox 98.5 F 84 18 111/59 L 90 L 08/31/18 19:21 08/31/18 19:21 08/31/18 19:21 08/31/18 19:21 08/31/18 19:21 Pulse Oximeter Ambulatory Start: 08/26/18 15:54 Freq: RTDAILY Status: Complete Protocol: Document 08/28/18 08:00 LDA (Rec: 08/28/18 15:51 LDA [email or web address]) Exercise Oximetry Treatment Ambulating SpO2 Charge Now No Pulse Oximeter Nocturnal Start: 08/26/18 15:54 Freq: RTQ4 Status: Complete Protocol: Document 08/27/18 04:26 NSM (Rec: 08/27/18 04:27 NSM [email or web address]) Nocturnal Pulse Oximetry Equipment Usage Equipment in Use Oxygen Delivery Method (includes room CPAP air) O2 Sat by Pulse Oximetry (92-100) 94 Continuous Pulse Oximeter Set Up No Continuous SpO2 Discontinued No Continuous SpO2 Machine # [id number] General appearance: PRESENT: no acute distress, obese, well-developed, well- nourished Head exam: PRESENT: atraumatic, normocephalic Respiratory exam: PRESENT: clear to auscultation kristina. ABSENT: rales, rhonchi, wheezes Cardiovascular exam: PRESENT: RRR. ABSENT: diastolic murmur, rubs, systolic murmur GI/Abdominal exam: PRESENT: normal bowel sounds, soft. ABSENT: distended, guarding, mass, organolmegaly, rebound, tenderness Extremities exam: PRESENT: full ROM. ABSENT: calf tenderness, clubbing, pedal edema Neurological exam: PRESENT: alert, awake, oriented to person, oriented to place, oriented to time, oriented to situation, CN II-XII grossly intact. ABSENT: motor sensory deficit Results Laboratory Results: 08/31/18 06:35 08/31/18 18:30 Impressions: Pelvis CT 08/20/18 07:39 IMPRESSION: NO SIGNIFICANT OR ACUTE FINDINGS IN THE PELVIS. NO EVIDENCE OF PERIANAL OR PERIRECTAL ABSCESS. Chest X-Ray 08/23/18 00:00 IMPRESSION: 1. Bilateral diffuse asymmetric airspace disease in the lungs, more so on the left, may be on the basis of edema or infiltrates. 2. Mild prominence of the pulmonary vasculature suggest congestion. Qualifiers - * PATIENT BEING DISCHARGED WITH ANY OF THE FOLLOWING DIAGNOSIS: No Acute Heart Failure - Is this a Heart Failure Patient?: No
== END 2018-08-31 20:41 | disposition home or self-care (01) | DRG 853 ==
LOC: ER 05:58 → EH 11:02 → 3S 17:29
PROVIDERS: ADMIT Internal Medicine; ATTEND Internal Medicine
PROC: 5A09557 Assistance with Respiratory Ventilation, Greater than 96 Consecutive Hours, Continuous Positive Airway Pressure (ICD-10-PCS; 2018-08-21)
PROC: 0JB80ZZ Excision of Abdomen Subcutaneous Tissue and Fascia, Open Approach (ICD-10-PCS; 2018-08-23)
PROC: 0DP64CZ Removal of Extraluminal Device from Stomach, Percutaneous Endoscopic Approach (ICD-10-PCS; principal; 2018-08-26 10:30)
DX: A41.9 Sepsis, unspecified organism (principal); J96.21 Acute and chronic respiratory failure with hypoxia; N39.0 Urinary tract infection, site not specified; L03.317 Cellulitis of buttock; L02.211 Cutaneous abscess of abdominal wall; E87.2 Acidosis; E83.42 Hypomagnesemia; E11.9 Type 2 diabetes mellitus without complications; E66.9 Obesity, unspecified; I10 Essential (primary) hypertension; J44.9 Chronic obstructive pulmonary disease, unspecified; F32.9 Major depressive disorder, single episode, unspecified; B96.1 Klebsiella pneumoniae [K. pneumoniae] as the cause of diseases classified elsewhere; E87.6 Hypokalemia; F41.9 Anxiety disorder, unspecified; D51.0 Vitamin B12 deficiency anemia due to intrinsic factor deficiency; B37.2 Candidiasis of skin and nail; B96.20 Unspecified Escherichia coli [E. coli] as the cause of diseases classified elsewhere; F17.210 Nicotine dependence, cigarettes, uncomplicated; Z88.3 Allergy status to other anti-infective agents; Z79.899 Other long term (current) drug therapy; Z90.49 Acquired absence of other specified parts of digestive tract; Z88.2 Allergy status to sulfonamides; Z88.6 Allergy status to analgesic agent; Z79.891 Long term (current) use of opiate analgesic; Z91.030 Bee allergy status; Z91.038 Other insect allergy status; Z79.84 Long term (current) use of oral hypoglycemic drugs
CPT/HCPCS: 36415; 36430; 43239; 71045; 72193; 80048; 80053; 80076; 81001; 82140; 82272; 82525; 82607; 82652; 82728; 82746; 82803; 82962; 83036; 83540; 83550; 83605; 83735; 84100; 84134; 84630; 85025; 85027; 85045; 85610; 86850; 86900; 86901; 86920; 87040; 87070; 87075; 87077; 87086; 87088; 87186; 87205; 88305; 88342; 93005; 93010; 94640; 94660; 94762; 96361; 96365; 96366; 96375; 99291; J0171; J0610; J0696; J1200; J1610; J1650; J1815; J1885; J1940; J1956; J2060; J2250; J2310; J2405; J2765; J3010; J3370; J3420; J3475; J3480; J3490; J7030; J7060; J7620; P9016

== ENCOUNTER 2018-09-04 07:27 | Emergency (ER) | payer OTHER ==
[2018-09-04 09:57] LABS: ABSOLUTE BASOPHILS # (AUTO) 0.1 10^3/uL (0.0-0.2); ABSOLUTE EOSINOPHILS # (AUTO) 0.2 10^3/uL (0.0-0.6); ABSOLUTE LYMPHOCYTES (AUTO) 1.8 10^3/uL (0.5-4.7); ABSOLUTE MONOCYTES (AUTO) 1.1 10^3/uL (0.1-1.4); ABSOLUTE NEUT (AUTO) 8.5 10^3/uL (1.7-8.2); HEMATOCRIT 31.1 % (36.0-47.0); LYMPHOCYTES % (AUTO) 15.2 % (13-45); MEAN CORPUSCULAR HEMOGLOBIN 33.4 pg (27.0-33.4); MEAN CORPUSCULAR VOLUME 104 fl (80-97); MONOCYTES % (AUTO) 9.4 % (3-13); PLATELET COUNT 173 10^3/uL (150-450); RED BLOOD COUNT 2.98 10^6/uL (3.72-5.28); SEGMENTED NEUTROPHILS % (AUTO) 72.4 % (42-78); TOTAL CELLS COUNTED % (AUTO) 100 %; WHITE BLOOD COUNT 11.7 10^3/uL (4.0-10.5)
[2018-09-04 10:07] LABS: ALANINE AMINOTRANSFERASE 35 U/L (9-52); ALKALINE PHOSPHATASE 145 U/L (38-126); ANION GAP 13 (5-19); ASPARTATE AMINO TRANSFERASE 80 U/L (14-36); BILIRUBIN,DIRECT 0.8 mg/dL (0.0-0.4); BILIRUBIN,TOTAL 1.6 mg/dL (0.2-1.3); BLOOD UREA NITROGEN 3 mg/dL (7-20); CARBON DIOXIDE 21 mmol/L (22-30); CHLORIDE 104 mmol/L (98-107); CREATINE KINASE 56 U/L (30-135); GLUCOSE 125 mg/dL (75-110); POTASSIUM 4.2 mmol/L (3.6-5.0); SODIUM 138.3 mmol/L (137-145); TOTAL PROTEIN 7.1 g/dL (6.3-8.2)
[2018-09-04 10:19] LABS: CREATINE KINASE MB 1.15 ng/mL (<4.55); NT PRO BNP 201 pg/mL (<125)
[2018-09-04 10:20] LABS: TROPONIN I < 0.012 ng/mL
[2018-09-04 10:24] LABS: INTERNATIONAL RATION (INR) 1.31; PROTHROMBIN TIME 16.9 SEC (11.4-15.4)
[2018-09-04 10:25] LABS: PARTIAL THROMBOPLASTIN TIME 39.1 SEC (23.5-35.8)
[2018-09-04] MEDS ORDERED: CIPROFLOXACIN HCL 750 MG TABLET PO ONE (11:45)
[2018-09-04 11:58] VITALS: BP 121/82
--- NOTE | 2018-09-04 14:04 | ER Document Report ---
Entered by BRENDAN ASHRAF SCRIBE 09/04/18 0933 Acting as scribe for:KAYLYN MCCABE DO ED General - General Chief Complaint: Leg Swelling Stated Complaint: LEG SWELLING Time Seen by Provider: 09/04/18 08:19 Mode of Arrival: Ambulatory Information source: Patient Notes: Patient was sent in from [facility] due to concerns over possible DVT. Patient is a 48-year-old female with type 2 diabetes and history of recurrent abscesses presents to the emergency department complaining of bilateral lower extremity swelling. Patient was recently admitted to the hospital on 08/20/2018 for UTI, cellulitis and sepsis after having an I&D of an abdominal abscess. While admitted patient had the abscess opened again. Patient states she was discharged home on the 08/31/2018 with prescriptions for antibiotics and was unable to picker tender helper the antibiotics due to a clerical error. Patient states her legs began to swell on 08/30/2018 and reports significantly increased swelling of the left leg. Patient also complains of abdominal pain epigastrically and below the umbilicus that is unchanged. Patient states the pain was present before she had a CT scan 2 weeks ago. Patient mentions taking iron pills and B12 shots. She also complains of urinary burning and states that she has been drinking lemon juice and water as an "DIY" diuretic. TRAVEL OUTSIDE OF THE [place] IN LAST 30 DAYS: No - Related Data Allergies/Adverse Reactions: morphine [Morphine] Allergy (Verified 09/04/18 07:28) nitrofurantoin [From Macrobid] Allergy (Verified 09/04/18 07:28) nitrofurantoin macrocrystalline [From Macrobid] Allergy (Verified 09/04/18 07:28) Sulfa (Sulfonamide Antibiotics) Allergy (Verified 09/04/18 07:28) sulfamethoxazole [From Bactrim] Allergy (Verified 09/04/18 07:28) trimethoprim [From Bactrim] Allergy (Verified 09/04/18 07:28) red ants Allergy (Severe, Uncoded 09/04/18 07:28) Anaphylaxis bees Allergy (Uncoded 09/04/18 07:28) Past Medical History - General Information source: Patient - Social History Smoking Status: Current Every Day Smoker Cigarette use (# per day): Yes Chew tobacco use (# tins/day): No Smoking Education Provided: No Frequency of alcohol use: None Lives with: Spouse/Significant other Family History: Reviewed & Not Pertinent, CAD, Malignancy - Past Medical History Cardiac Medical History: Reports: Hx Hypertension Pulmonary Medical History: Reports: Hx Asthma, Hx Bronchitis, Hx COPD Endocrine Medical History: Reports: Hx Diabetes Mellitus Type 2 GI Medical History: Reports: Hx Ulcer Psychiatric Medical History: Reports: Hx Depression Past Surgical History: Reports: Hx Abdominal Surgery - GBP, Hx Section, Hx Cholecystectomy, Hx Gastric Bypass Surgery, Hx Tonsillectomy - Immunizations Immunizations up to date: Yes Hx Diphtheria, Pertussis, Tetanus Vaccination: Yes - 2016 Review of Systems - Review of Systems Constitutional: No symptoms reported EENT: No symptoms reported Cardiovascular: No symptoms reported Respiratory: No symptoms reported Gastrointestinal: See HPI, Abdominal pain Genitourinary: No symptoms reported Female Genitourinary: No symptoms reported Musculoskeletal: See HPI Skin: See HPI Hematologic/Lymphatic: No symptoms reported Neurological/Psychological: No symptoms reported -: Yes All other systems reviewed and negative Physical Exam - Vital signs Vitals: Temp Pulse Resp BP Pulse Ox 99.2 F 98 18 115/63 100 09/04/18 07:34 09/04/18 07:34 09/04/18 07:34 09/04/18 07:34 09/04/18 07:34 - Notes Notes: GENERAL: Alert, interacts well. No acute distress. HEAD: Normocephalic, atraumatic. EYES: Pupils equal, round, and reactive to light. Extraocular movements intact. ENT: Oral mucosa moist, tongue midline. NECK: Full range of motion. Supple. Trachea midline. LUNGS: Clear to auscultation bilaterally, no wheezes, rales, or rhonchi. No respiratory distress. HEART: Regular rate and rhythm. No murmurs, gallops, or rubs. ABDOMEN: Soft, easily reducible epigastric hernia. Tender to palpation 3cm below umbilicus. Mild erythema in the fold of pannus, no exudate, minimal skin breakdown. Non-distended. Bowel sounds present in all 4 quadrants. No guarding, rigidity, or rebound. EXTREMITIES: Moves all 4 extremities spontaneously. No edema, radial and dorsalis pedis pulses 2/4 bilaterally. No cyanosis. NEUROLOGICAL: Alert and oriented x3. Normal speech. PSYCH: Normal affect, normal mood. SKIN: Warm, dry. Scabbed incision consistent with recent I&D to the left abdomen, inserted Q-tip approximately 1 cm into area. There is serous fluid, no signs of purulence, small amount of induration. RECTAL: Approximately the 11 o'clock position, just medially, contains a 0.5cm area of induration with small amount of purulent discharge. Course - Re-evaluation Re-evalutation: 09/04/18 11:46 CBC shows mild leukocytosis at 11.7 with an increase in her hemoglobin to 10.0 when this is combined with her CO2 that slightly low at 21 I suspect the patient is actually somewhat dry in the elevation white blood cell count is hemoconcentration rather than worsening infection. AST and alkaline phosphatase are both mildly elevated, cardiac enzymes negative, proBNP relatively normal at 201, no evidence of heart failure. Duplex ultrasound does not show DVT. Discussed with patient that her low albumin in the setting of gastric bypass surgery is likely what is contributing to the increased swelling in her legs. Patient is advised to continue to follow-up with a clay molder to discuss appropriate diet in the setting of gastric bypass surgery in order to get enough protein. Patient's biggest complaint today was the concern over DVT but she did have a secondary complaint over not being able to get her prescriptions filled as she states that the pharmacy refused to fill the prescriptions and the hospitalist was not here to be able to change them into a form that the pharmacy wanted. I will go ahead and rewrite for her daily sublingual B12, magnesium oxide and potassium chloride as prescribed by the hospitalist so that if the pharmacy has questions they can call me while I am still working on my shift. I will also write to the ciprofloxacin that both her UTI and her abscesses were sensitive to that [facility] said they were going to treat her with but did not. This is to replace the Levaquin that the hospitalist wrote for but the patient was unable to fill for some reason. Patient is discharged home and asked to follow-up with [facility] as an outpatient. For the draining abscess inside her jim cleft that is actively draining and does not need to be incised and drained at this time patient is encouraged to continue to use Epsom salts soaks. - Vital Signs Vital signs: Temp Pulse Resp BP Pulse Ox 99.2 F 98 18 121/82 100 09/04/18 07:34 09/04/18 07:34 09/04/18 07:34 09/04/18 11:04 09/04/18 11:04 - Laboratory Result Diagrams: 09/04/18 09:15 09/04/18 09:15 Laboratory results interpreted by me: 09/04/18 09/04/18 09/04/18 09:15 09:15 09:15 WBC 11.7 H RBC 2.98 L Hgb 10.0 L Hct 31.1 L MCV 104 H RDW 21.0 H Absolute Neutrophils 8.5 H PT APTT Carbon Dioxide 21 L BUN 3 L Glucose 125 H Total Bilirubin 1.6 H Direct Bilirubin 0.8 H AST 80 H Alkaline Phosphatase 145 H NT-Pro-B Natriuret Pep 201 H Albumin 3.0 L 09/04/18 10:05 WBC RBC Hgb Hct MCV RDW Absolute Neutrophils PT 16.9 H APTT 39.1 H Carbon Dioxide BUN Glucose Total Bilirubin Direct Bilirubin AST Alkaline Phosphatase NT-Pro-B Natriuret Pep Albumin Discharge - Discharge Clinical Impression: Yeast infection of the skin, Cellulitis, gluteal, Swelling of lower extremity, Hypoalbuminemia, Complications of gastric bypass surgery UTI (urinary tract infection) Qualifiers: Urinary tract infection type: acute cystitis Hematuria presence: without hematuria Qualified Code(s): N30.00 - Acute cystitis without hematuria Condition: Stable Disposition: HOME, SELF-CARE Additional Instructions: Please take the ciprofloxacin as prescribed twice a day for both the skin infections and the urinary tract infection. If this is too expensive and taking Levaquin daily for 7 days would be less expensive please have the pharmacy call me with any questions or to prescribe a less expensive medication. I have rewritten your prescriptions for your magnesium, potassium and B12 sublingual. If there are any questions from the pharmacist please have them call me. I would like you to continue to follow-up with your clay molder for dietary advice on how to get your albumin back to a normal level and the appropriate amount of protein to take during the day. Epsom Salt Soaks Soak the wound area in a container of warm epsom salt water. If you can't get the wound area into a bucket or lopes, use a folded towel soaked in the epsom salt solution and apply to the area. Use clean hot tap water (about the temperature of a very warm bath), mixing in about one (1) teaspoon for every pint of water. Two gallon --> 16 teaspoons Epsom Salts One gallon --> 8 teaspoons Epsom Salts Two quarts --> 4 teaspoons Epsom Salts One quart --> 2 teaspoons Epsom Salts Soak the wound for about 20 minutes while gently moving it around in the water. Repeat this four (4) times a day. If the swollen areas on your bottom get bigger please return to the emergency department as they may need to be drained, currently 1 of them is draining and the other one appears to be a skin infection rather than an abscess (pocket of pus). At this time they do not need to be cut open. For the yeast infection on your abdomen please wash and dry the area with soap and water once a day and apply the athlete's foot cream of your choice to this area. It will treat the yeast. You may use compression hose or Freedom wraps to help get some of the fluid out of your legs. Prescriptions: Ciprofloxacin HCl [Cipro 500 mg Tablet] 500 mg PO BID #14 tablet Cyanocobalamin (Vitamin B-12) [Vitamin B-12 SL 2500 mcg Tablet] 2,500 mcg SL DAILY #30 tab.subl Magnesium Oxide [Magnesium] 800 mg PO BID #40 capsule Potassium Chloride [Klor-Con 10 Meq Capsule ER] 40 meq PO Q12 #56 tablet. I personally performed the services described in the documentation, reviewed and edited the documentation which was dictated to the scribe in my presence, and it accurately records my words and actions.
--- NOTE | 2018-09-04 14:09 | XCELERA REPORT ---
[address] [address] Lower Extremity Venous Evaluation Procedure: Color flow and duplex imaging of the veins of the left lower extremity as well as the right Common Femoral vein. Right Sided Venous Evaluation The right common femoral vein is fully compressible. Spontaneous and phasic flow is present in the right common femoral vein. Left Sided Venous Evaluation Lucent,spaces in subcutaneous tissues of the leg, suggesting edema, noted. Normal vessel filling wall to wall, compression and augmentation as well as Colour flow down to the infrageniculate veins. Interpretation Summary No duplex evidence of DVT or obstruction in the left lower extremity nor in the right Common Femoral vein. Remarkable subcutaneous edema on left. Name: JOVANNI RENTERIA Age: 48 yrs Gender: Female : 1970 Patient Status: Emergency Patient Location: ER Study Date: 09/04/2018 09:19 AM Reason For Study: left leg swelling Ordering Physician: KAYLYN MCCABE Performed By: Montez Vance : KAYLYN MCCABE > Guille Sahni
== END 2018-09-04 12:04 | disposition home or self-care (01) ==
LOC: ER 07:27
DX: N30.00 Acute cystitis without hematuria (principal); R22.43 Localized swelling, mass and lump, lower limb, bilateral; B37.2 Candidiasis of skin and nail; L03.317 Cellulitis of buttock; E88.09 Other disorders of plasma-protein metabolism, not elsewhere classified; K95.89 Other complications of other bariatric procedure; Z98.84 Bariatric surgery status; Y83.8 Other surgical procedures as the cause of abnormal reaction of the patient, or of later complication, without mention of misadventure at the time of the procedure; F17.210 Nicotine dependence, cigarettes, uncomplicated; I10 Essential (primary) hypertension; E11.9 Type 2 diabetes mellitus without complications; Z90.49 Acquired absence of other specified parts of digestive tract; Z88.3 Allergy status to other anti-infective agents; Z88.6 Allergy status to analgesic agent; Z88.2 Allergy status to sulfonamides
CPT/HCPCS: 99284; 36415; 82553; 82550; 85025; 85610; 85730; 80053; 84484; 83880; 93971 ×2; J3490

== ENCOUNTER 2018-10-05 00:48 | Emergency (ER) | payer OTHER ==
[2018-10-05 00:58] VITALS: BP 113/72
== END 2018-10-05 03:50 | disposition left against medical advice (07) ==
LOC: ER 00:48
DX: Z53.21 Procedure and treatment not carried out due to patient leaving prior to being seen by health care provider (principal)

== ENCOUNTER → 2018-10-26 | Outpatient (CLI) | payer OTHER ==
--- NOTE | 2018-10-26 17:52 | RADIOLOGY REPORT (SQ) ---
EXAM DESCRIPTION: FOOT LEFT COMPLETE COMPLETED DATE/TIME: 10/26/2018 5:05 pm REASON FOR STUDY: NON-PRS CHRONIC ULCER OTH PRT LEFT FOOT W FAT LAYER EXPOSED L97.522 NON-PRS CHRON IC ULCER OTH PRT LEFT FOOT W FAT LAYER E11.621 TYPE 2 DIABETES MELLITUS WITH FOOT ULCER COMPARISON: None. NUMBER OF VIEWS: Three views. TECHNIQUE: AP, lateral and oblique radiographic images acquired of the left foot. LIMITATIONS: None. FINDINGS: MINERALIZATION: Normal. BONES: No acute fracture or dislocation. No worrisome bone lesions. No bone destruction to suggest osteomyelitis. JOINTS: Wound near the 1st interphalangeal joint. SOFT TISSUES: No soft tissue swelling. No foreign body. OTHER: No other significant finding. IMPRESSION: There is no evidence of osteomyelitis. No acute osseous findings. TECHNICAL DOCUMENTATION: JOB ID: [id number] [id number] [employer]- All Rights Reserved Reading location - IP/workstation name: [email or web address]
[2018-10-26 17:53] LABS: ABSOLUTE EOSINOPHILS # (AUTO) 0.1 10^3/uL (0.0-0.6); ABSOLUTE LYMPHOCYTES (AUTO) 1.5 10^3/uL (0.5-4.7); ABSOLUTE MONOCYTES (AUTO) 0.9 10^3/uL (0.1-1.4); ABSOLUTE NEUT (AUTO) 5.7 10^3/uL (1.7-8.2); BASOPHILS % (AUTO) 0.3 % (0-2); EOSINOPHILS % (AUTO) 1.2 % (0-6); HEMATOCRIT 28.4 % (36.0-47.0); HEMOGLOBIN 9.3 g/dL (12.0-15.5); LYMPHOCYTES % (AUTO) 18.1 % (13-45); MEAN CORPUSCULAR HEMOGLOBIN 33.3 pg (27.0-33.4); MEAN CORPUSCULAR HGB CONC 32.9 g/dL (32.0-36.0); MEAN CORPUSCULAR VOLUME 101 fl (80-97); MONOCYTES % (AUTO) 10.6 % (3-13); PLATELET COUNT 133 10^3/uL (150-450); RED CELL DISTRIBUTION WIDTH 18.8 % (11.5-14.0); SEGMENTED NEUTROPHILS % (AUTO) 69.8 % (42-78); TOTAL CELLS COUNTED % (AUTO) 100 %; WHITE BLOOD COUNT 8.2 10^3/uL (4.0-10.5)
[2018-10-26 18:03] LABS: ALBUMIN 3.6 g/dL (3.5-5.0); ALKALINE PHOSPHATASE 171 U/L (38-126); ASPARTATE AMINO TRANSFERASE 52 U/L (14-36); BILIRUBIN,DIRECT 0.7 mg/dL (0.0-0.4); BILIRUBIN,TOTAL 1.3 mg/dL (0.2-1.3); C-REACTIVE PROTEIN 21.7 mg/L (<10.0); CARBON DIOXIDE 18 mmol/L (22-30); CHLORIDE 95 mmol/L (98-107); GLUCOSE 156 mg/dL (75-110); POTASSIUM 3.8 mmol/L (3.6-5.0); TOTAL PROTEIN 7.6 g/dL (6.3-8.2)
[2018-10-26 18:04] LABS: BLOOD UREA NITROGEN < 2 mg/dL (7-20)
[2018-10-26 18:05] LABS: ANION GAP 20 (5-19)
[2018-10-26 18:34] LABS: ERYTHROCYTE SEDIMENTATION RATE 58 mm/hr (0-20)
== END ==
LOC: WC 15:41
PROVIDERS: ATTEND Preventive Medicine Undersea and Hyperbaric Medicine
DX: E11.621 Type 2 diabetes mellitus with foot ulcer (principal); L97.522 Non-pressure chronic ulcer of other part of left foot with fat layer exposed
CPT/HCPCS: 36415; 80053; 83036; 85025; 85652; 86140

== ENCOUNTER → 2018-11-03 | Outpatient (CLI) | payer OTHER ==
--- NOTE | 2018-11-04 19:12 | XCELERA REPORT ---
[address] [address] Lower Extremity Arterial Evaluation Name: JOVANNI RENTERIA Age: 48 yrs Gender: Female : 1970 Patient Status: Outpatient Patient Location: [facility] Study Date: 11/03/2018 02:18 PM Procedure: A color flow and duplex scan of the lower extremity arteries was performed on the left with velocity and waveform anaylsis. Reason For Study: ULCER OF LEFT FOOT Ordering Physician: KAREEN KHAN Performed By: Dio Ch Measurements and Calculations Right Left SNUFF CONTAINER INSPECTOR PSV 169.9 cm/sec Prox PFA PSV 97.8 cm/sec Prox SFA PSV 117.0 cm/sec Mid SFA PSV -121.8cm/sec Dist SFA PSV -166.1cm/sec Prox Pop A PSV 70.6 cm/sec Dist PAU PSV 114.7 cm/sec Dist ROAD CUTTER PSV 113.0 cm/sec Ignacio Pedis PSV 85.9 121.9 cm/sec Right Side Arterial Evaluation Very limited study showing triphasic waveform in the Dorsalis Pedis. KYLE of 1.07. Left Side Arterial Evaluation Normal velocity and triphasic waveforms noted from the Common Femoral artery to the infrageniculate vessels . Biphasic with normal velocity in the Dorsalis Pedis artery. Ankle Brachial index 1.21. Interpretation Summary Mild hemodynamically significant lesions in the left lower extremity only, on duplex imaging, at rest. Duplex very nearly normal on left, findings in the Dorsalis Pedis only. KYLE's are normal supporting finding of normal or near normal duplex findings. : KAREEN KHAN > Guille Sahni
--- NOTE | 2018-11-04 19:18 | XCELERA REPORT ---
[address] [address] Lower Extremity Venous Evaluation Procedure: A unilateral duplex scan of the lower extremity veins was performed. The evaluation included responses to compression and other maneuvers with patient in the supine and standing positions to assess venous insufficiency.Reason For Study: ULCER OF LEFT FOOTOrdering Physicia Left Sided Venous Evaluation Deep venous system evaluation shows patent veins with no significant reflux identified. Sapheno Femoral junction: no reflux. Greater Saphenous vein, Proximal thigh: reflux: no reflux. Greater Saphenous vein, mid thigh: reflux:no reflux. Greater Saphenous vein, Distal thigh: reflux:no reflux. Greater Saphenous vein, Proximal below knee: reflux: none Greater Saphenous vein, Mid below knee: reflux: none. Greater Saphenous vein, Distal below knee: reflux: no reflux. No significant Perforators identified. Interpretation Summary Negative for DVT in the left lower extremity veins. No significant deep or superficial reflux noted. Name: JOVANNI RENTERIA Age: 48 yrs Gender: Female : 1970 Patient Status: Outpatient Patient Location: Study Date: 11/03/2018 02:33 PM n: KAREEN KHAN Performed By: Dio Ch : KAREEN KHAN > Guille Sahni
== END ==
LOC: SP 14:00
PROVIDERS: ATTEND Preventive Medicine Undersea and Hyperbaric Medicine
DX: E11.621 Type 2 diabetes mellitus with foot ulcer (principal); L97.522 Non-pressure chronic ulcer of other part of left foot with fat layer exposed
CPT/HCPCS: 93922; 93926; 93970

== ENCOUNTER 2019-03-12 05:42 | Emergency (ER) | payer MEDICAID ==
[2019-03-12 05:53] VITALS: BP 107/59
--- NOTE | 2019-03-12 07:24 | RADIOLOGY REPORT (SQ) ---
EXAM: X-ray foot three or more views CLINICAL DATA: 48-year-old female with right foot pain, rule out fracture TECHNICAL DATA: Three x-ray views of the right foot were performed on 03/12/2019 at 6:41 AM. COMPARISONS: None FINDINGS: There is no evidence of acute fracture or dislocation. No significant degenerative or arthritic changes are identified. No pathologic lytic or sclerotic bone lesions are seen. There is a small plantar calcaneal spur and small posterior calcaneal enthesophyte. There are prominent calcifications along the plantar fascia which can be associated with plantar fasciitis. Bone mineralization is within normal limits. No acute soft tissue abnormalities are identified. There are vascular calcifications present along the anterior distal tibia. IMPRESSION: 1. No evidence of acute osseous injury involving the right foot.. 2. Prominent calcifications along the plantar fascia which can be associated with plantar fasciitis.
== END 2019-03-12 08:42 | disposition left against medical advice (07) ==
LOC: ER 05:42
DX: Z53.21 Procedure and treatment not carried out due to patient leaving prior to being seen by health care provider (principal); S99.921A Unspecified injury of right foot, initial encounter; X58.XXXA Exposure to other specified factors, initial encounter

== ENCOUNTER → 2019-03-22 | Outpatient (CLI) | payer MEDICAID, OTHER ==
--- NOTE | 2019-03-23 14:24 | WOMENS IMAGING REPORT ---
EXAM DESCRIPTION: BILAT SCREENING MAMMO W/CAD COMPLETED DATE/TIME: 03/23/2019 7:04 am REASON FOR STUDY: Z12.31 ENCOUNTER FOR SCREENING MAMMOGRAM FOR MALIGNANT NEOPLASM OF BREAST Z12.31 ENCNTR SCREEN MAMMOGRAM FOR MALIGNANT NEOPLASM OF TYE COMPARISON: None. EXAM PARAMETERS: Standard craniocaudal and mediolateral oblique views of each breast recorded using digital acquisition. Read with the assistance of CAD. .[facility] [place] - [employer] Version 2.4 LIMITATIONS: None. FINDINGS: Findings present which are benign by mammographic criteria. No suspicious masses, calcifi cations or architectural distortion. Pertinent benign findings: Scattered benign calcifications. Benign mammographic findings may include one or more of the following: Smooth masses, popcorn/rim/co arse calcifications, asymmetries, post-procedure changes, and lesions with long-standing stability. IMPRESSION: BENIGN MAMMOGRAPHIC FINDINGS. BIRADS 2 BREAST DENSITY: a. The breasts are almost entirely fatty. BIRAD: ASSESSMENT: 2 BENIGN FINDING(S) RECOMMENDATION: ROUTINE SCREENING COMMENT: The patient has been notified of the results by letter per SA requirements. Additional no tification policies are in place for contacting patient with suspicious or incomplete findings. Quality ID #225: The [employer] recommends an annual screening mammogram for women aged 40 years or over. This facility utilizes a reminder system to ensure that all patients receive reminder letters, and/or direct phone calls for appointments. This includes reminders for routine scr eening mammograms, diagnostic mammograms, or other Breast Imaging Interventions when appropriate. Th is patient will be placed in the appropriate reminder system. TECHNICAL DOCUMENTATION: FINDING NUMBER: (1) ASSESSMENT: (1) JOB ID: [id number] [employer]- All Rights Reserved Reading location - IP/workstation name: [email or web address]
== END ==
LOC: WI 14:09
PROVIDERS: ATTEND Family Medicine
DX: Z12.31 Encounter for screening mammogram for malignant neoplasm of breast (principal)
CPT/HCPCS: 77067

== ENCOUNTER → 2019-03-23 | Outpatient (CLI) | payer MEDICAID ==
--- NOTE | 2019-03-23 16:37 | RADIOLOGY REPORT (SQ) ---
EXAM DESCRIPTION: LUMBAR SPINE COMPLETE COMPLETED DATE/TIME: 03/23/2019 3:48 pm REASON FOR STUDY: SPONDYLS W/O MYELOPATHY OR RADICULOPATHY, LUMBOSACR REGION M47.817 SPONDYLS W/O M YELOPATHY OR RADICULOPATHY, LUMBOSACR COMPARISON: AP, lateral, oblique, and L5-S1 spot views of the lumbosacral spine from 08/29/2016. NUMBER OF VIEWS: Five views including obliques. TECHNIQUE: AP, lateral, oblique, and sacral radiographic images acquired of the lumbar spine. LIMITATIONS: None. FINDINGS: MINERALIZATION: Normal. SEGMENTATION: There are 5 lumbar-type vertebral bodies. There is no transitional anatomy at the lumb osacral junction. ALIGNMENT: Mild dextroconvex curvature of the lumbar spine. There is no spondylolisthesis. VERTEBRAE: The lumbar vertebral body heights are preserved. There is no fracture. DISCS: The L2-L3, L3-L4, L4-L5 and L5-S1 intervertebral disc spaces are narrowed. POSTERIOR ELEMENTS: No pars interarticularis defect. Sclerosis of the L4-5 and L5-S1 facet joints. HARDWARE: None in the spine. PARASPINAL SOFT TISSUES: Atherosclerotic calcification of the abdominal aorta. PELVIS: Intact. OTHER: Cholecystectomy clips, bowel anastomotic kathryn and other surgical clips. IMPRESSION: Degenerative spondylosis and facet arthropathy of the lumbar spine. TECHNICAL DOCUMENTATION: JOB ID: [id number] [employer]267[employer]- All Rights Reserved Reading location - IP/workstation name: [email or web address]
== END ==
LOC: OD 15:27
PROVIDERS: ATTEND Family Medicine
DX: M47.817 Spondylosis without myelopathy or radiculopathy, lumbosacral region (principal)
CPT/HCPCS: 72110

== ENCOUNTER → 2019-05-16 | Outpatient (CLI) | payer MEDICAID ==
[2019-05-16 15:29] LABS: ABSOLUTE EOSINOPHILS # (AUTO) 0.2 10^3/uL (0.0-0.6); ABSOLUTE LYMPHOCYTES (AUTO) 1.6 10^3/uL (0.5-4.7); ABSOLUTE MONOCYTES (AUTO) 0.7 10^3/uL (0.1-1.4); ABSOLUTE NEUT (AUTO) 5.5 10^3/uL (1.7-8.2); BASOPHILS % (AUTO) 0.6 % (0-2); EOSINOPHILS % (AUTO) 2.2 % (0-6); HEMATOCRIT 30.9 % (36.0-47.0); HEMOGLOBIN 10.4 g/dL (12.0-15.5); MEAN CORPUSCULAR HEMOGLOBIN 36.4 pg (27.0-33.4); MEAN CORPUSCULAR HGB CONC 33.8 g/dL (32.0-36.0); MEAN CORPUSCULAR VOLUME 108 fl (80-97); MONOCYTES % (AUTO) 8.8 % (3-13); PLATELET COUNT 111 10^3/uL (150-450); RED BLOOD COUNT 2.87 10^6/uL (3.72-5.28); RED CELL DISTRIBUTION WIDTH 14.6 % (11.5-14.0); SEGMENTED NEUTROPHILS % (AUTO) 68.4 % (42-78); TOTAL CELLS COUNTED % (AUTO) 100 %
[2019-05-16 15:58] LABS: ALBUMIN 3.7 g/dL (3.5-5.0); ALKALINE PHOSPHATASE 160 U/L (38-126); ANION GAP 11 (5-19); ASPARTATE AMINO TRANSFERASE 62 U/L (14-36); BILIRUBIN,DIRECT 0.7 mg/dL (0.0-0.4); BILIRUBIN,TOTAL 1.9 mg/dL (0.2-1.3); BLOOD UREA NITROGEN 3 mg/dL (7-20); CARBON DIOXIDE 24 mmol/L (22-30); CHLORIDE 103 mmol/L (98-107); GLUCOSE 87 mg/dL (75-110); POTASSIUM 3.7 mmol/L (3.6-5.0); TOTAL PROTEIN 8.3 g/dL (6.3-8.2)
[2019-05-16 17:38] LABS: ERYTHROCYTE SEDIMENTATION RATE 82 mm/hr (0-20)
== END ==
LOC: WC 14:00
PROVIDERS: ATTEND Preventive Medicine Undersea and Hyperbaric Medicine
DX: E11.621 Type 2 diabetes mellitus with foot ulcer (principal); L97.512 Non-pressure chronic ulcer of other part of right foot with fat layer exposed; L97.522 Non-pressure chronic ulcer of other part of left foot with fat layer exposed
CPT/HCPCS: 36415; 80053; 83036; 85025; 85652; 86140

== ENCOUNTER → 2019-07-25 | Outpatient (CLI) | payer MEDICAID ==
--- NOTE | 2019-07-25 17:04 | RADIOLOGY REPORT (SQ) ---
EXAM DESCRIPTION: CHEST PA/LATERAL IMAGES COMPLETED DATE/TIME: 07/25/2019 4:46 pm REASON FOR STUDY: NON-PRS CHRONIC ULCER OTH PRT RIGHT FOOT W FAT LAYER EXPOSED COMPARISON: AP view of the chest from 08/23/2018. EXAM PARAMETERS: NUMBER OF VIEWS: two views TECHNIQUE: PA and lateral views of the chest were obtained RADIATION DOSE: NA LIMITATIONS: none FINDINGS: LUNGS AND PLEURA: Mild diffuse prominence of the interstitium without a superimposed conso lidation, sizeable pleural effusion or pneumothorax. MEDIASTINUM AND HILAR STRUCTURES: No mediastinal or hilar contour abnormality. HEART AND VASCULAR STRUCTURES: The cardiac silhouette is enlarged. BONES: No acute findings. HARDWARE: None in the chest. OTHER: No other findings. IMPRESSION: Cardiomegaly and mild diffuse prominence of the interstitium. Clinical correlation to e xclude mild CHF/ interstitial edema is recommended. TECHNICAL DOCUMENTATION: JOB ID: [id number] 2010 [employer]- All Rights Reserved Reading location - IP/workstation name: [email or web address]
--- NOTE | 2019-07-25 17:06 | RADIOLOGY REPORT (SQ) ---
EXAM DESCRIPTION: FOOT RIGHT COMPLETE IMAGES COMPLETED DATE/TIME: 07/25/2019 4:47 pm REASON FOR STUDY: NON-PRS CHRONIC ULCER OTH PRT RIGHT FOOT W FAT LAYER EXPOSED L97.522 NON-PRS ECHO TECH PHILLIP ULCER OTH PRT LEFT FOOT W FAT LAYER L97.512 NON-PRS CHRONIC ULCER OTH PRT RIGHT FOOT W FAT LAYE R E11.621 TYPE 2 DIABETES MELLITUS WITH FOOT ULCER COMPARISON: None. NUMBER OF VIEWS: Three views. TECHNIQUE: AP, lateral and oblique radiographic images acquired of the right foot. LIMITATIONS: None. FINDINGS: MINERALIZATION: Normal. BONES: No fracture or erosion. JOINTS: The normal tarsometatarsal alignment is preserved. SOFT TISSUES: Soft tissue defect lateral to the 5th MTP joint. OTHER: Ossifications that project within the plantar fascia. IMPRESSION: Soft tissue defect lateral to the 5th MTP joint without radiographic findings of osteomy elitis. TECHNICAL DOCUMENTATION: JOB ID: [id number] 2010 [employer]- All Rights Reserved Reading location - IP/workstation name: [email or web address]
[2019-07-25 17:15] LABS: ABSOLUTE EOSINOPHILS # (AUTO) 0.2 10^3/uL (0.0-0.6); ABSOLUTE LYMPHOCYTES (AUTO) 1.7 10^3/uL (0.5-4.7); ABSOLUTE NEUT (AUTO) 9.3 10^3/uL (1.7-8.2); BASOPHILS % (AUTO) 0.3 % (0-2); HEMOGLOBIN 10.5 g/dL (12.0-15.5); LYMPHOCYTES % (AUTO) 13.8 % (13-45); MEAN CORPUSCULAR HEMOGLOBIN 35.6 pg (27.0-33.4); MEAN CORPUSCULAR HGB CONC 33.9 g/dL (32.0-36.0); MEAN CORPUSCULAR VOLUME 105 fl (80-97); MONOCYTES % (AUTO) 7.9 % (3-13); PLATELET COUNT 154 10^3/uL (150-450); RED BLOOD COUNT 2.96 10^6/uL (3.72-5.28); RED CELL DISTRIBUTION WIDTH 14.6 % (11.5-14.0); TOTAL CELLS COUNTED % (AUTO) 100 %; WHITE BLOOD COUNT 12.3 10^3/uL (4.0-10.5)
[2019-07-25 17:39] LABS: ALBUMIN 3.3 g/dL (3.5-5.0); ALKALINE PHOSPHATASE 116 U/L (38-126); ANION GAP 11 (5-19); ASPARTATE AMINO TRANSFERASE 43 U/L (14-36); BILIRUBIN,DIRECT 0.5 mg/dL (0.0-0.4); BILIRUBIN,TOTAL 1.4 mg/dL (0.2-1.3); BLOOD UREA NITROGEN 4 mg/dL (7-20); CALCIUM 8.9 mg/dL (8.4-10.2); CARBON DIOXIDE 25 mmol/L (22-30); CHLORIDE 93 mmol/L (98-107); GLUCOSE 154 mg/dL (75-110); POTASSIUM 3.8 mmol/L (3.6-5.0); TOTAL PROTEIN 7.6 g/dL (6.3-8.2)
[2019-07-25 17:52] LABS: ERYTHROCYTE SEDIMENTATION RATE 91 mm/hr (0-20)
[2019-07-25 18:01] LABS: C-REACTIVE PROTEIN 141.8 mg/L (<10.0)
== END ==
LOC: WC 16:08
PROVIDERS: ATTEND Preventive Medicine Undersea and Hyperbaric Medicine
DX: E11.621 Type 2 diabetes mellitus with foot ulcer (principal); L97.522 Non-pressure chronic ulcer of other part of left foot with fat layer exposed; L97.512 Non-pressure chronic ulcer of other part of right foot with fat layer exposed; J93.9 Pneumothorax, unspecified; I51.7 Cardiomegaly
CPT/HCPCS: 36415; 71046; 80053; 83036; 85025; 85652; 86140

== ENCOUNTER 2019-07-28 14:59 | Inpatient (IN) | payer MEDICAID ==
--- NOTE | 2019-07-28 15:31 | ER Document Report ---
ED Medical Screen (RME) - General Stated Complaint: RIGHT LEG SWELLING Time Seen by Provider: 07/28/19 15:24 Primary Care Provider: KAREEN KHAN DPM [Primary Care Provider] - Follow up as needed Notes: HPI: 49-year-old type II diabetic female presenting to the emergency department for evaluation of swelling redness and pain to the right lower extremity. Patient states she does have a wound on the bottom of the right foot that is being treated at home with home health. Patient states she saw the home health nurse on Thursday but developed increasing swelling of the right foot with redness, increased swelling and redness of the right lower extremity. No chest pain shortness of breath. Has had chills no definitive fever. Patient is concerned about an infection PHYSICAL EXAMINATION: There is significant edema and swelling to the right lower extremity extending from the knee down through the foot. The foot with the wound on the plantar aspect is wrapped currently in triage. There is erythema extending up the right lower extremity to the level of the knee somewhat circumferentially. Moderate tenderness on palpation. I have greeted and performed a rapid initial assessment of this patient. A comprehensive ED assessment and evaluation of the patient, analysis of test results and completion of medical decision making process will be conducted by an additional ED providers. TRAVEL OUTSIDE OF THE [place] IN LAST 30 DAYS: No - Related Data Allergies/Adverse Reactions: morphine [Morphine] Allergy (Verified 03/12/19 05:57) nitrofurantoin [From Macrobid] Allergy (Verified 03/12/19 05:57) nitrofurantoin macrocrystalline [From Macrobid] Allergy (Verified 03/12/19 05:57) Sulfa (Sulfonamide Antibiotics) Allergy (Verified 03/12/19 05:57) sulfamethoxazole [From Bactrim] Allergy (Verified 03/12/19 05:57) trimethoprim [From Bactrim] Allergy (Verified 03/12/19 05:57) red ants Allergy (Severe, Uncoded 09/04/18 07:28) Anaphylaxis bees Allergy (Uncoded 09/04/18 07:28) Past Medical History - Past Medical History Cardiac Medical History: Reports: Hx Hypertension Pulmonary Medical History: Reports: Hx Asthma, Hx Bronchitis, Hx COPD Neurological Medical History: Denies: Hx Seizures Endocrine Medical History: Reports: Hx Diabetes Mellitus Type 2 Renal/ Medical History: Denies: Hx Peritoneal Dialysis GI Medical History: Reports: Hx Ulcer Musculoskeltal Medical History: Denies Hx Gout, Denies Hx Muscle Weakness, Denies Hx Musculoskeletal Deformity, Denies Hx Musculoskeletal Trauma Psychiatric Medical History: Reports: Hx Depression Past Surgical History: Reports: Hx Abdominal Surgery - GBP, Hx Section, Hx Cholecystectomy, Hx Gastric Bypass Surgery, Hx Tonsillectomy. Denies: Hx Hysterectomy - Immunizations Immunizations up to date: Yes Hx Diphtheria, Pertussis, Tetanus Vaccination: Yes - 2016 Physical Exam - Vital signs Vitals: Temp Pulse Resp BP Pulse Ox 99.0 F 96 16 100/58 L 96 07/28/19 15:03 07/28/19 15:03 07/28/19 15:03 07/28/19 15:03 07/28/19 15:03 Course - Vital Signs Vital signs: Temp Pulse Resp BP Pulse Ox 99.0 F 96 16 100/58 L 96 07/28/19 15:03 07/28/19 15:03 07/28/19 15:03 07/28/19 15:03 07/28/19 15:03 Doctor's Discharge - Discharge Referrals: KAREEN KHAN DPM [Primary Care Provider] - Follow up as needed
[2019-07-28 16:24] LABS: ABSOLUTE EOSINOPHILS # (AUTO) 0.1 10^3/uL (0.0-0.6); ABSOLUTE MONOCYTES (AUTO) 1.2 10^3/uL (0.1-1.4); ABSOLUTE NEUT (AUTO) 7.7 10^3/uL (1.7-8.2); BASOPHILS % (AUTO) 0.3 % (0-2); HEMATOCRIT 30.8 % (36.0-47.0); HEMOGLOBIN 10.6 g/dL (12.0-15.5); LYMPHOCYTES % (AUTO) 18.1 % (13-45); MEAN CORPUSCULAR HEMOGLOBIN 35.9 pg (27.0-33.4); MEAN CORPUSCULAR HGB CONC 34.4 g/dL (32.0-36.0); MEAN CORPUSCULAR VOLUME 104 fl (80-97); MONOCYTES % (AUTO) 10.9 % (3-13); PLATELET COUNT 183 10^3/uL (150-450); RED BLOOD COUNT 2.95 10^6/uL (3.72-5.28); SEGMENTED NEUTROPHILS % (AUTO) 69.7 % (42-78); TOTAL CELLS COUNTED % (AUTO) 100 %; WHITE BLOOD COUNT 11.1 10^3/uL (4.0-10.5)
[2019-07-28 16:41] LABS: ALBUMIN 3.2 g/dL (3.5-5.0); ALKALINE PHOSPHATASE 141 U/L (38-126); ANION GAP 11 (5-19); ASPARTATE AMINO TRANSFERASE 47 U/L (14-36); BILIRUBIN,DIRECT 0.2 mg/dL (0.0-0.4); BILIRUBIN,TOTAL 0.8 mg/dL (0.2-1.3); BLOOD UREA NITROGEN 3 mg/dL (7-20); CALCIUM 8.8 mg/dL (8.4-10.2); CARBON DIOXIDE 27 mmol/L (22-30); CHLORIDE 94 mmol/L (98-107); GLUCOSE 149 mg/dL (75-110); POTASSIUM 3.7 mmol/L (3.6-5.0); TOTAL PROTEIN 7.5 g/dL (6.3-8.2)
[2019-07-28] MEDS ORDERED: IMIPENEM/CILASTATIN SODIUM INJ 500 MG VIAL IV ONE (17:53)
[2019-07-28] MEDS ORDERED: VANCOMYCIN HCL INJ 1000 MG VIAL IV ONE (17:53)
[2019-07-28] MEDS ORDERED: HYDROMORPHONE HCL INJ/PF 2 MG/ML AMPULE IV ONE (17:54)
--- NOTE | 2019-07-28 17:55 | RADIOLOGY REPORT (SQ) ---
EXAM DESCRIPTION: VENOUS UNILATERAL LOWER IMAGES COMPLETED DATE/TIME: 07/28/2019 5:39 pm REASON FOR STUDY: RLE swelling r/o DVT COMPARISON: None. TECHNIQUE: Dynamic and static de los santos scale and color images acquired of the right leg venous system. S elected spectral images acquired with additional compression and augmentation maneuvers. The contrala teral common femoral vein and saphenofemoral junction were also imaged. Images stored on PACS. LIMITATIONS: Limited evaluation due to edema and swelling. FINDINGS: COMMON FEMORAL: Normal phasicity, compression and augmentation. No visualized echogenic ma terial on de los santos scale. No defects on color images. FEMORAL: Normal compression and augmentation. No visualized echogenic material on de los santos scale. No defe cts on color images. POPLITEAL: Normal compression, augmentation. No visualized echogenic material on de los santos scale. No defec ts on color images. CALF VESSELS: Normal compression, augmentation. No visualized echogenic material on de los santos scale. No de fects on color images. Peroneal vein not visualized. GSV and SSV: Normal compression, augmentation. No visualized echogenic material on de los santos scale. No def ects on color images. ANY DEEP VENOUS INSUFFICIENCY: Not evaluated. ANY EVIDENCE OF POPLITEAL CYST: No. OTHER: No other significant finding. CONTRALATERAL COMMON FEMORAL VEIN: Normal phasicity, compression and augmentation. No visualized echogenic material on de los santos scale. No de fects on color images. IMPRESSION: 1. Limited evaluation due to edema and swelling. See above comment. 2. NO EVIDENCE OF DVT OR SVT IN THE RIGHT LEG. TECHNICAL DOCUMENTATION: JOB ID: [id number] 2010 [employer]- All Rights Reserved Reading location - IP/workstation name: [email or web address]
--- NOTE | 2019-07-28 18:01 | ER Document Report ---
ED General - General Chief Complaint: Leg Swelling Stated Complaint: RIGHT LEG SWELLING Time Seen by Provider: 07/28/19 15:24 Primary Care Provider: KAREEN KHAN DPM [ACTIVE STAFF] - Follow up as needed TRAVEL OUTSIDE OF THE [place] IN LAST 30 DAYS: No - HPI Notes: Patient is a 49-year-old diabetic female who presents to the emergency department for evaluation of right leg pain and swelling. She has a callus on her right foot, that developed into an abscess, then into a chronic wound. She had debridement by wound care recently, was started on Keflex and Levaquin. She has been on these for greater than 48 hours. She states that since then her pain, redness, swelling has worsened. She saw wound care again, and it was recommended that she come into the hospital for further evaluation. She states her blood sugars were okay today at 120. She denies any fevers or chills. No nausea or vomiting. She is eating and drinking normally, taking her medications as prescribed. Her pain is worsened significantly. She is on chronic Percocet, states that this is not really helping much with her pain. - Related Data Allergies/Adverse Reactions: morphine [Morphine] Allergy (Verified 03/12/19 05:57) nitrofurantoin [From Macrobid] Allergy (Verified 03/12/19 05:57) nitrofurantoin macrocrystalline [From Macrobid] Allergy (Verified 03/12/19 05:57) Sulfa (Sulfonamide Antibiotics) Allergy (Verified 03/12/19 05:57) sulfamethoxazole [From Bactrim] Allergy (Verified 03/12/19 05:57) trimethoprim [From Bactrim] Allergy (Verified 03/12/19 05:57) red ants Allergy (Severe, Uncoded 09/04/18 07:28) Anaphylaxis bees Allergy (Uncoded 09/04/18 07:28) Home Medications: epi pen, buspirone, lisinopril, proair, vit d2, metformin, phentermine, escitalopram, iron, vit b12, mag oxide, lasix, oxycodone, trazodone, levofloxacin, cephalexin Past Medical History - General Information source: Patient - Social History Smoking Status: Current Every Day Smoker Chew tobacco use (# tins/day): No Frequency of alcohol use: Occasional Drug Abuse: None Family History: Reviewed & Not Pertinent, CAD, Malignancy Patient has homicidal ideation: No - Past Medical History Cardiac Medical History: Reports: Hx Hypertension Pulmonary Medical History: Reports: Hx Asthma, Hx Bronchitis, Hx COPD Neurological Medical History: Denies: Hx Seizures Endocrine Medical History: Reports: Hx Diabetes Mellitus Type 2 Renal/ Medical History: Denies: Hx Peritoneal Dialysis GI Medical History: Reports: Hx Ulcer Musculoskeletal Medical History: Denies Hx Gout, Denies Hx Muscle Weakness, Denies Hx Musculoskeletal Deformity, Denies Hx Musculoskeletal Trauma Psychiatric Medical History: Reports: Hx Anxiety, Hx Depression Past Surgical History: Reports: Hx Abdominal Surgery - GBP, Hx Section, Hx Cholecystectomy, Hx Gastric Bypass Surgery, Hx Tonsillectomy. Denies: Hx Hysterectomy - Immunizations Immunizations up to date: Yes Hx Diphtheria, Pertussis, Tetanus Vaccination: Yes - 2017 Review of Systems - Review of Systems Musculoskeletal: See HPI Skin: See HPI -: Yes All other systems reviewed and negative Physical Exam - Vital signs Vitals: Temp Pulse Resp BP Pulse Ox 99.0 F 96 16 100/58 L 96 07/28/19 15:03 07/28/19 15:03 07/28/19 15:03 07/28/19 15:03 07/28/19 15:03 - Notes Notes: Vital signs reviewed, please refer to chart. Head is normocephalic, atraumatic. Pupils equal round, reactive to light. Neck is supple without meningismus. Heart is regular rate and rhythm. Lungs are clear to auscultation bilaterally. Abdomen is soft, nontender, normoactive bowel sounds throughout. She does have a small ventral hernia noted, easily reduced. Extremities without cyanosis, clubbing. Examination of the right lower extremity yields a significant amount of edema and erythema that tracks from a wound on the right fifth metatarsophalangeal joint, and tracks up circumferentially to nearly the knee. Positive calf tenderness noted. Neurovascularly intact distally. She does have a 4 cm x 2 cm ulceration noted overlying the dorsum and the plantar aspect of the right fifth metatarsophalangeal joint. It has been recently debrided. Sensation is intact, capillary refill is brisk. Dorsalis pedis pulse easily palpable. Course - Re-evaluation Re-evalutation: 07/28/19 18:00 Patient presents to the emergency department for evaluation. She was initially seen through triage. Her laboratory investigations reveal a mild leukocytosis. She is a diabetic. She is failing outpatient treatment. Her pain and swelling, as well as redness are worsening. I have ordered an x-ray, but I have a strong suspicion for osteomyelitis at this time. Given her mildly elevated heart rate on arrival, as well as her mildly elevated white count and elevated lactic acid, she does not fact meet criteria for sepsis. We will administer IV fluids. Patient is administered imipenem and vancomycin. Will contact medicine for admission. 07/28/19 18:[address] King. She will accept the patient for further care. 07/28/19 18:05 - Vital Signs Vital signs: Temp Pulse Resp BP Pulse Ox 99 F 96 16 100/58 L 96 07/28/19 15:23 07/28/19 15:03 07/28/19 15:03 07/28/19 15:03 07/28/19 15:03 - Laboratory Result Diagrams: 07/28/19 16:02 07/28/19 16:02 Laboratory results interpreted by me: 07/28/19 07/28/19 07/28/19 16:02 16:02 16:02 WBC 11.1 H RBC 2.95 L Hgb 10.6 L Hct 30.8 L MCV 104 H MCH 35.9 H RDW 15.0 H Sodium 132.0 L Chloride 94 L BUN 3 L Creatinine 0.48 L Glucose 149 H Lactic Acid 4.9 H AST 47 H Alkaline Phosphatase 141 H Albumin 3.2 L - Diagnostic Test Radiology reviewed: Reports reviewed Radiology results interpreted by me: 07/28/19 18:00 Venous Doppler Study 07/28/19 15:29 IMPRESSION: 1. Limited evaluation due to edema and swelling. See above comment. 2. NO EVIDENCE OF DVT OR SVT IN THE RIGHT LEG. Discharge - Discharge Clinical Impression: Cellulitis of right lower extremity, Diabetic foot ulcer, Sepsis Condition: Stable Disposition: ADMITTED INPATIENT Admitting Provider: Christine (Hospitalist) Unit Admitted: Medical Floor Referrals: KAREEN KHAN DPM [ACTIVE STAFF] - Follow up as needed
[2019-07-28] MEDS ORDERED: NORMAL SALINE 1000 ML 1,000 ML IV ONE (18:05)
[2019-07-28] MEDS ORDERED: NORMAL SALINE 1000 ML 1,000 ML IV PRN ×2 (18:05→23:45)
[2019-07-28] MEDS ORDERED: ACETAMINOPHEN 325 MG TABLET PO PRN (18:17)
[2019-07-28] MEDS ORDERED: TEMAZEPAM 7.5 MG CAPSULE PO PRN (18:17)
[2019-07-28] MEDS ORDERED: MAGNESIUM HYDROXIDE SUSP 30 ML UDCUP PO PRN (18:17)
[2019-07-28] MEDS ORDERED: ONDANSETRON 4 MG TAB.RAPDIS PO PRN (18:17)
[2019-07-28] MEDS ORDERED: IPRATROPIUM/ALBUTEROL 0.5-2.5 MG/3 ML AMPUL NEB PRN (18:17)
[2019-07-28] MEDS ORDERED: DEXTROSE 50%-WATER 25 GM/50 ML DISP.SYRIN IV PRN ×2 (18:28)
[2019-07-28] MEDS ORDERED: GLUCAGON,HUMAN RECOMB 1 MG INJ IM PRN (18:28)
[2019-07-28] MEDS ORDERED: DEXTROSE 40% GEL 15 GM TUBE PO PRN ×2 (18:28)
[2019-07-28] MEDS ORDERED: VANCOMYCIN HCL 0 MG in DEXTROSE 5%-WATER 250 ML IV NR (18:30)
--- NOTE | 2019-07-28 18:31 | RADIOLOGY REPORT (SQ) ---
EXAM DESCRIPTION: FOOT RIGHT COMPLETE IMAGES COMPLETED DATE/TIME: 07/28/2019 6:18 pm REASON FOR STUDY: eval for osteomyelitis COMPARISON: None. NUMBER OF VIEWS: Three views. TECHNIQUE: AP, lateral and oblique radiographic images acquired of the right foot. LIMITATIONS: None. FINDINGS: MINERALIZATION: Normal. BONES: No acute fracture or dislocation. Plantar calcaneal spur. JOINTS: Mild degenerative changes distal interphalangeal joint of the great toe. SOFT TISSUES: Large area of injury/defect involving the soft tissues lateral aspect fifth metatarsop halangeal region, consistent with the patient's known ulcer. Opaque density overlies the area of inj ury may represent bandage. Soft tissue swelling involving the right foot. Extensive ossification wi thin the region of the plantar fascia. OTHER: No other significant finding. IMPRESSION: 1. No significant interval changes since the prior examination dated 07/25/2019. No rad iographic evidence of osteomyelitis. 2. Soft tissue injury/defect again identified along the lateral aspect of the fifth metatarsophalang eal joint, consistent with the patient's known ulcer. 3. Soft tissue swelling involving the right foot. TECHNICAL DOCUMENTATION: JOB ID: [id number] 2010 [employer]- All Rights Reserved Reading location - IP/workstation name: [email or web address]
--- NOTE | 2019-07-28 18:42 | PDOC H&P ---
History of Present Illness Admission Date/PCP: July 28, 2019 Patient complains of: To the emergency room with complaints of right leg pain and swelling. She states that she was seen by I believe the dining manager and had recent debridement of the wound however there is continued swelling and pain. History of Present Illness: JOVANNI RENTERIA is a 49 year old female To the emergency room with complaints of right leg pain and swelling. She states that she was seen by I believe the dining manager and had recent debridement of the wound however there is continued swelling and pain. She was started on Keflex and Levaquin on Thursday, July 24. She returned today and she was told to come to the ER for evaluation due to the swelling and pain. Patient denies any discharge, nausea vomiting. She said she had a blister on the foot and all this started just within the last week. She does give a history of daily wine drinking. She has been diabetic since she was about 5 years old. Past Medical History Cardiac Medical History: Reports: Hypertension Pulmonary Medical History: Reports: Asthma, Bronchitis, Chronic Obstructive Pu lmonary Disease (COPD) Neurological Medical History: Denies: Seizures Endocrine Medical History: Reports: Diabetes Mellitus Type 1 Musculoskeltal Medical History: Denies: Gout Psychiatric Medical History: Reports: Depression Past Surgical History Past Surgical History: Reports: Section, Cholecystectomy, Gastric Bypass Surgery, Tonsillectomy Denies: Hysterectomy Social History Information Source: Patient Smoking Status: Current Every Day Smoker Electronic Cigarette use?: No Frequency of Alcohol Use: Heavy Last Alcohol Use: 07/27/19 Hx Recreational Drug Use: No Drugs: None Hx Prescription Drug Abuse: No - Advance Directive Resuscitation Status: Full Code Family History Family History: Reviewed & Not Pertinent, CAD, Malignancy Parental Family History Reviewed: Yes Children Family History Reviewed: Yes Sibling(s) Family History Reviewed.: Yes Medication/Allergy Home Medications: Escitalopram Oxalate [Lexapro] 40 mg PO DAILY 01/10/18 Metformin HCl 500 mg PO BID 01/10/18 Oxycodone HCl [Oxycodone HCl 10 MG Tablet] 10 mg PO Q6HP PRN 08/20/18 Ciprofloxacin HCl [Cipro 500 mg Tablet] 500 mg PO BID #14 tablet 09/04/18 Cyanocobalamin (Vitamin B-12) [Vitamin B-12 SL 2500 mcg Tablet] 2,500 mcg SL DAILY #30 tab.subl 09/04/18 Magnesium Oxide [Magnesium] 800 mg PO BID #40 capsule 09/04/18 Phentermine HCl [Adipex-P] 37.5 mg PO [id number] 09/04/18 Potassium Chloride [Klor-Con 10 Meq Capsule ER] 40 meq PO Q12 #56 tablet.sa Allergies/Adverse Reactions: morphine [Morphine] Allergy (Verified 03/12/19 05:57) nitrofurantoin [From Macrobid] Allergy (Verified 03/12/19 05:57) nitrofurantoin macrocrystalline [From Macrobid] Allergy (Verified 03/12/19 05:57) Sulfa (Sulfonamide Antibiotics) Allergy (Verified 03/12/19 05:57) sulfamethoxazole [From Bactrim] Allergy (Verified 03/12/19 05:57) trimethoprim [From Bactrim] Allergy (Verified 03/12/19 05:57) red ants Allergy (Severe, Uncoded 09/04/18 07:28) Anaphylaxis bees Allergy (Uncoded 09/04/18 07:28) Review of Systems All systems: reviewed and no additional remarkable complaints except as stated Constitutional: ABSENT: fever(s), headache(s) Cardiovascular: PRESENT: edema. ABSENT: chest pain, orthropnea, palpitations Respiratory: ABSENT: cough, dyspnea Gastrointestinal: ABSENT: abdominal pain, hematemesis, nausea, vomiting Physical Exam Vital Signs: Temp Pulse Resp BP Pulse Ox 99 F 96 16 100/58 L 96 07/28/19 15:23 07/28/19 15:03 07/28/19 15:03 07/28/19 15:03 07/28/19 15:03 Intake & Output 07/27/19 07/28/19 07/29/19 06:59 06:59 06:59 Weight 90.9 kg General appearance: PRESENT: no acute distress, well-nourished, other - Older looking than stated age Head exam: PRESENT: atraumatic, normocephalic Eye exam: PRESENT: conjunctiva pink, EOMI, PERRLA. ABSENT: scleral icterus Ear exam: PRESENT: normal external ear exam Mouth exam: PRESENT: moist, tongue midline Neck exam: ABSENT: carotid bruit, JVD, lymphadenopathy, thyromegaly Respiratory exam: PRESENT: clear to auscultation kristina, unlabored. ABSENT: rales, rhonchi, wheezes Cardiovascular exam: PRESENT: RRR, +S1, +S2. ABSENT: diastolic murmur, rubs, systolic murmur Pulses: PRESENT: normal dorsalis pedis pul Vascular exam: PRESENT: normal capillary refill GI/Abdominal exam: PRESENT: normal bowel sounds, soft. ABSENT: distended, guarding, mass, organolmegaly, rebound, tenderness Rectal exam: PRESENT: deferred Extremities exam: PRESENT: full ROM, +2 edema. ABSENT: calf tenderness, c lubbing, pedal edema Musculoskeletal exam: PRESENT: other - Erythema and swelling of right foot with extension of the lower leg Neurological exam: PRESENT: alert, awake, oriented to person, oriented to place, oriented to time, oriented to situation, CN II-XII grossly intact. ABSENT: motor sensory deficit Psychiatric exam: PRESENT: appropriate affect, normal mood. ABSENT: homicidal ideation, suicidal ideation Skin exam: PRESENT: rash, other - Right foot ulcer medially just distal to the great toe with an opening and exposed wound but no immediate discharges seen. ABSENT: cyanosis Results Laboratory Results: 07/28/19 16:02 07/28/19 16:02 07/28/19 07/28/19 07/28/19 16:02 16:02 16:02 WBC 11.1 H RBC 2.95 L Hgb 10.6 L Hct 30.8 L MCV 104 H MCH 35.9 H MCHC 34.4 RDW 15.0 H Plt Count 183 Seg Neutrophils % 69.7 Sodium 132.0 L Potassium 3.7 Chloride 94 L Carbon Dioxide 27 Anion Gap 11 BUN 3 L Creatinine 0.48 L Est GFR ( Amer) > 60 Glucose 149 H Lactic Acid 4.9 H Calcium 8.8 Total Bilirubin 0.8 AST 47 H Alkaline Phosphatase 141 H Total Protein 7.5 Albumin 3.2 L Impressions: Venous Doppler Study 07/28/19 15:29 IMPRESSION: 1. Limited evaluation due to edema and swelling. See above comment. 2. NO EVIDENCE OF DVT OR SVT IN THE RIGHT LEG. Foot X-Ray 07/28/19 17:51 IMPRESSION: 1. No significant interval changes since the prior examination dated 07/25/2019. No radiographic evidence of osteomyelitis. 2. Soft tissue injury/defect again identified along the lateral aspect of the fifth metatarsophalangeal joint, consistent with the patient's known ulcer. 3. Soft tissue swelling involving the right foot. Assessment and Plan - Diagnosis (1) Type 1 diabetes mellitus Qualifiers: Diabetes mellitus complication status: with circulatory complication Diabetes mellitus complication detail: with other circulatory complications Qualified Code(s): E10.59 - Type 1 diabetes mellitus with other circulatory complications Is this a current diagnosis for this admission?: Yes Plan: Patient has longstanding diabetes. I will place her on sliding scale insulin. Her glucose is actually relatively controlled. Will check hemoglobin A1c (2) Alcohol use disorder Is this a current diagnosis for this admission?: Yes Plan: Patient will be monitored for alcohol withdrawal. She drinks every day although she was unable to quantify for me (3) Cellulitis of right lower extremity Is this a current diagnosis for this admission?: Yes Plan: She has surrounding cellulitis as well as a diabetic foot ulcer. She apparently had a recent debridement done as outpatient. (4) Diabetic foot ulcer Qualifiers: Diabetic foot ulcer location: midfoot Diabetes mellitus type: type 1 Laterality: right Non-pressure ulcer stage: with other severity Qualified Code(s): E10.621 - Type 1 diabetes mellitus with foot ulcer; L97.418 - Non- pressure chronic ulcer of right heel and midfoot with other specified severity Is this a current diagnosis for this admission?: Yes Plan: She has been placed on vancomycin as well as Zosyn. I have also requested MRI to rule out underlying osteomyelitis as well as surgical consult (5) Tobacco dependency Is this a current diagnosis for this admission?: Yes Plan: Smoking cessation advised - Time Time Spent with patient: 25-34 minutes Medications reviewed and adjusted accordingly: Yes - Inpatient Certification Based on my medical assessment, after consideration of the patient's comorbidities, presenting symptoms, or acuity I expect that the services needed warrant INPATIENT care.: Yes Medical Necessity: Need for IV Antibiotics
[2019-07-28] MEDS: LORAZEPAM 1 MG TABLET PO PRN (22:09)
[2019-07-28] MEDS: ENOXAPARIN SODIUM INJ 40 MG/0.4 ML DISP.SYRIN SUBCUT SCH (22:09)
[2019-07-28] MEDS: KETOROLAC TROMETHAMINE INJ/PF 30 MG/1 ML SDV IV PRN (22:12)
--- NOTE | 2019-07-28 23:44 | PDOC CONSULTATION ---
Consultation Consult Date: 07/28/19 Provider Consulted: BERNY ROBERTS History of Present Illness Admission Date/PCP: 07/28/19 18:33 History of Present Illness: JOVANNI RENTERIA is a 49 year old femaleJOVANNI RENTERIA is a 49 year old female To the emergency room with complaints of right leg pain and swelling. She s tates that she was seen by I believe the book agent and had recent debridement of the wound however there is continued swelling and pain. She was started on Keflex and Levaquin on Thursday, July 24. She returned today and she was told to come to the ER for evaluation due to the swelling and pain. Patient denies any discharge, nausea vomiting. She said she had a blister on the foot and all this started just within the last week. She does give a history of daily wine drinking. She has been diabetic since she was about 5 years old. Past Medical History Cardiac Medical History: Reports: Hypertension Pulmonary Medical History: Reports: Asthma, Bronchitis, Chronic Obstructive Pulmonary Disease (COPD) Neurological Medical History: Denies: Seizures Endocrine Medical History: Reports: Diabetes Mellitus Type 1, Diabetes Mellitus Type 2 Musculoskeltal Medical History: Denies: Gout Psychiatric Medical History: Reports: Depression Past Surgical History Past Surgical History: Reports: Section, Cholecystectomy, Gastric Bypass Surgery, Tonsillectomy Denies: Hysterectomy Social History Smoking Status: Current Every Day Smoker Electronic Cigarette use?: No Frequency of Alcohol Use: Heavy Hx Recreational Drug Use: No Drugs: None Hx Prescription Drug Abuse: No - Advance Directive Resuscitation Status: Full Code Family History Family History: Reviewed & Not Pertinent, CAD, Malignancy Parental Family History Reviewed: No Children Family History Reviewed: NA Sibling(s) Family History Reviewed.: NA Medication/Allergy Home Medications: Escitalopram Oxalate [Lexapro] 40 mg PO DAILY 01/10/18 Metformin HCl 1,000 mg PO BID 01/10/18 Oxycodone HCl [Oxycodone HCl 10 MG Tablet] 10 mg PO 5XD 08/20/18 Cyanocobalamin (Vitamin B-12) [Vitamin B-12 SL 2500 mcg Tablet] 2,500 mcg SL DAILY #30 tab.subl 09/04/18 Magnesium Oxide [Magnesium] 800 mg PO BID #40 capsule 09/04/18 Potassium Chloride [Klor-Con 10 Meq Capsule ER] 40 meq PO Q12 #56 tablet.sa 09/04/18 Buspirone HCl [Buspar 10 mg Tablet] 7.5 mg PO BID 07/28/19 Cholecalciferol (Vitamin D3) [Vitamin D3 1000 Unit Tablet] 1,000 unit PO DAILY 07/28/19 Ergocalciferol (Vitamin D2) [Drisdol 50,000 unit (1.25MG) Capsule] 50,000 unit PO FR@1000 07/28/19 Furosemide [Lasix 40 mg Tablet] 40 mg PO DAILY 07/28/19 Iron 18 mg PO DAILY 07/28/19 L.acidoph,Paracasei, B.lactis [Probiotic] 1 tab PO DAILY 07/28/19 Niacin 500 mg PO DAILY 07/28/19 Allergies/Adverse Reactions: morphine [Morphine] Allergy (Verified 03/12/19 05:57) nitrofurantoin [From Macrobid] Allergy (Verified 03/12/19 05:57) nitrofurantoin macrocrystalline [From Macrobid] Allergy (Verified 03/12/19 05:57) Sulfa (Sulfonamide Antibiotics) Allergy (Verified 03/12/19 05:57) sulfamethoxazole [From Bactrim] Allergy (Verified 03/12/19 05:57) trimethoprim [From Bactrim] Allergy (Verified 03/12/19 05:57) red ants Allergy (Severe, Uncoded 09/04/18 07:28) Anaphylaxis bees Allergy (Uncoded 09/04/18 07:28) Review of Systems Constitutional: PRESENT: weakness Eyes: ABSENT: as per HPI, visual disturbances, other Ears: ABSENT: as per HPI, hearing changes, other Nose, Mouth, and Throat: ABSENT: as per HPI, headache(s), mouth pain, sore throat, vertigo, other Breasts: ABSENT: as per HPI, other Cardiovascular: ABSENT: as per HPI, chest pain, dyspnea on exertion, edema, orthropnea, palpitations, other Respiratory: ABSENT: as per HPI, cough, dyspnea, hemoptysis, sputum, other Gastrointestinal: ABSENT: as per HPI, abdominal pain, bloating, coffee ground emesis, constipation, diarrhea, dysphagia, heartburn, hematemesis, hematochezia, melena, nausea, vomiting, other Genitourinary: ABSENT: as per HPI, difficulty urinating, dysuria, hematuria, nocturia, other Musculoskeletal: PRESENT: deformity, joint swelling, muscle weakness Integumentary: PRESENT: lesions, wounds Neurological: ABSENT: as per HPI, abnormal gait, abnormal movements, abnormal speech, confusion, convulsions, dizziness, focal weakness, frequent falls, lack of coordination, memory loss, numbness, paresthesias, restless legs, syncope, tingling, tremor(s), vertigo, weakness, other Psychiatric: ABSENT: as per HPI, anxiety, depression, hallucinations, homidical ideation, suicidal ideation, other Endocrine: ABSENT: as per HPI, cold intolerance, flushing, heat intolerance, menstrual abnormalities, polydipsia, polyphagia, polyuria, other Hematologic/Lymphatic: ABSENT: as per HPI, easy bleeding, easy bruising, lymphadenopathy, other Allergic/Immunologic: ABSENT: as per HPI, seasonal rhinorrhea, other Physical Exam Vital Signs: Temp Pulse Resp BP Pulse Ox 98.3 F 78 16 101/72 97 07/28/19 20:41 07/28/19 20:41 07/28/19 20:41 07/28/19 20:41 07/28/19 20:41 Intake & Output 07/27/19 07/28/19 07/29/19 06:59 06:59 06:59 Intake Total 1000 Balance 1000 Weight 94.4 kg General appearance: PRESENT: disheveled, obese Head exam: PRESENT: normocephalic Eye exam: PRESENT: EOMI Ear exam: PRESENT: normal external ear exam Mouth exam: PRESENT: moist Teeth exam: PRESENT: poor dentation Neck exam: PRESENT: full ROM Respiratory exam: PRESENT: clear to auscultation kristina Cardiovascular exam: PRESENT: RRR Pulses: PRESENT: +1 pedal pulses bilateral Breast: PRESENT: Normal GI/Abdominal exam: PRESENT: soft Rectal exam: PRESENT: deferred Extremities exam: PRESENT: other - both lower ext swollen rt lower ext markedly swollen lat aspect of rt foot with necrotic ulcer, drainage of pus cellulitis across dorsum of foot extending up to ankle Neurological exam: PRESENT: alert Psychiatric exam: PRESENT: anxious Skin exam: PRESENT: dry Results Laboratory Results: 07/28/19 16:02 07/28/19 16:02 07/28/19 07/28/19 07/28/19 16:02 16:02 16:02 WBC 11.1 H RBC 2.95 L Hgb 10.6 L Hct 30.8 L MCV 104 H MCH 35.9 H MCHC 34.4 RDW 15.0 H Plt Count 183 Seg Neutrophils % 69.7 Sodium 132.0 L Potassium 3.7 Chloride 94 L Carbon Dioxide 27 Anion Gap 11 BUN 3 L Creatinine 0.48 L Est GFR ( Amer) > 60 Glucose 149 H Lactic Acid 4.9 H Calcium 8.8 Total Bilirubin 0.8 AST 47 H Alkaline Phosphatase 141 H Total Protein 7.5 Albumin 3.2 L Impressions: Venous Doppler Study 07/28/19 15:29 IMPRESSION: 1. Limited evaluation due to edema and swelling. See above comment. 2. NO EVIDENCE OF DVT OR SVT IN THE RIGHT LEG. Foot X-Ray 07/28/19 17:51 IMPRESSION: 1. No significant interval changes since the prior examination dated 07/25/2019. No radiographic evidence of osteomyelitis. 2. Soft tissue injury/defect again identified along the lateral aspect of the fifth metatarsophalangeal joint, consistent with the patient's known ulcer. 3. Soft tissue swelling involving the right foot. Assessment & Plan - Plan Summary Plan Summary: impression necrotic foot infection due to diabetes right lat foot with cellulitis plan pt admitted to medicine service and started on iv abx will plan on foot debridement iwth 5th toe amputation tomorrow discussed risks of deep tissue infection of forefoot and poss need for bka pt refusing bka at the present time
[2019-07-29] MEDS ORDERED: GLUCAGON,HUMAN RECOMB 1 MG INJ SUBCUT PRN (00:01)
[2019-07-29] MEDS ORDERED: DEXTROSE 50%-WATER 25 GM/50 ML DISP.SYRIN IV PRN ×2 (00:01)
[2019-07-29] MEDS ORDERED: DEXTROSE 40% GEL 15 GM TUBE PO PRN ×2 (00:01)
[2019-07-29] MEDS: HYDROMORPHONE HCL INJ/PF 2 MG/ML AMPULE IV PRN (00:37)
[2019-07-29] MEDS: LORAZEPAM 1 MG TABLET PO PRN ×3 (01:57→11:15)
[2019-07-29] MEDS: NORMAL SALINE 1000 ML 1,000 ML IV PRN ×2 (02:04→17:42)
[2019-07-29 02:26] LABS: APPEARANCE,URINE SLIGHTLY-CLOUDY; BILIRUBIN,URINE NEGATIVE (NEGATIVE); CALCIUM OXALATE CRYSTALS,URINE FEW /HPF; COLOR,URINE AMBER; GLUCOSE, URINE 50 mg/dL (NEGATIVE); KETONES,URINE TRACE mg/dL (NEGATIVE); LEUKOCYTE ESTERASE,URINE TRACE (NEGATIVE); NITRITE,URINE NEGATIVE (NEGATIVE); PROTEIN,URINE 30 mg/dL (NEGATIVE); URINE SPECIFIC GRAVITY 1.024
[2019-07-29] MEDS: PANTOPRAZOLE SODIUM 20 MG TABLET.DR PO SCH (05:35)
[2019-07-29] MEDS: PIPERACILLIN SODIUM/TAZOBACTAM 3.375 GM in NORMAL SALINE 100 ML IV SCH ×5 (05:35→17:41)
[2019-07-29] MEDS: VANCOMYCIN HCL 1,500 MG in DEXTROSE 5%-WATER 250 ML IV SCH ×2 (05:35→19:06)
[2019-07-29] MEDS: KETOROLAC TROMETHAMINE INJ/PF 30 MG/1 ML SDV IV PRN ×2 (05:36→11:56)
[2019-07-29 06:15] LABS: INTERNATIONAL RATION (INR) 1.31; PROTHROMBIN TIME 16.4 SEC (11.4-15.4)
[2019-07-29 06:16] LABS: ABSOLUTE EOSINOPHILS # (AUTO) 0.2 10^3/uL (0.0-0.6); ABSOLUTE LYMPHOCYTES (AUTO) 1.8 10^3/uL (0.5-4.7); ABSOLUTE NEUT (AUTO) 5.2 10^3/uL (1.7-8.2); ABSOLUTE RETICS # 0.064 10^6/uL (0.028-0.122); BASOPHILS % (AUTO) 0.6 % (0-2); HEMATOCRIT 25.9 % (36.0-47.0); HEMOGLOBIN 9.1 g/dL (12.0-15.5); LYMPHOCYTES % (AUTO) 22.1 % (13-45); MEAN CORPUSCULAR HEMOGLOBIN 36.4 pg (27.0-33.4); MEAN CORPUSCULAR HGB CONC 35.2 g/dL (32.0-36.0); MEAN CORPUSCULAR VOLUME 103 fl (80-97); MONOCYTES % (AUTO) 12.1 % (3-13); PLATELET COUNT 143 10^3/uL (150-450); RETICULOCYTE COUNT (AUTO) 2.57 % (0.66-2.85); SEGMENTED NEUTROPHILS % (AUTO) 63.2 % (42-78); TOTAL CELLS COUNTED % (AUTO) 100 %; WHITE BLOOD COUNT 8.1 10^3/uL (4.0-10.5)
[2019-07-29 06:31] LABS: ANION GAP 7 (5-19); BLOOD UREA NITROGEN 4 mg/dL (7-20); CALCIUM 8.8 mg/dL (8.4-10.2); CARBON DIOXIDE 30 mmol/L (22-30); CHLORIDE 95 mmol/L (98-107); GLUCOSE 121 mg/dL (75-110); IRON(TIBC) 76.2 ug/dL (37-170); POTASSIUM 3.7 mmol/L (3.6-5.0)
--- NOTE | 2019-07-29 10:02 | RADIOLOGY REPORT (SQ) ---
EXAM DESCRIPTION: U/S ABDOMEN COMPLETE W/DOPPLER IMAGES COMPLETED DATE/TIME: 07/29/2019 9:48 am REASON FOR STUDY: Etoh abuse, abd distention COMPARISON: 04/23/2017 TECHNIQUE: Dynamic and static grayscale images acquired of the abdomen and recorded on PACS. Adano jatinder selected color Doppler and spectral images recorded. Note: Study does not meet criteria for complete doppler/duplex scan LIMITATIONS: None. FINDINGS: PANCREAS: No masses. Visualized pancreatic duct normal caliber. LIVER: No masses. Echotexture normal. LIVER VASCULATURE: Normal directional flow of the main portal vein and hepatic veins. GALLBLADDER: Surgically absent. ULTRASOUND-DETECTED PRAKASH'S SIGN: Negative. INTRAHEPATIC DUCTS AND COMMON DUCT: The common bile duct measures 4.2 mm. No intrahepatic biliary du ctal dilatation. INFERIOR VENA CAVA: Normal flow. AORTA: No aneurysm. RIGHT KIDNEY: Normal size. Normal echogenicity. No solid or suspicious masses. No hydronephros is. No calcifications. LEFT KIDNEY: Normal size. Normal echogenicity. No solid or suspicious masses. No hydronephrosi s. No calcifications. SPLEEN: The spleen measures over 18 cm in cranial caudal dimensions. No focal lesions. PERITONEAL AND PLEURAL SPACES: No ascites or effusions. OTHER: No other significant finding. IMPRESSION: Splenomegaly. No other significant findings. TECHNICAL DOCUMENTATION: JOB ID: [id number] 2010 [email or web address]- All Rights Reserved Reading location - IP/workstation name: [email or web address]
--- NOTE | 2019-07-29 10:58 | PDOC PROGRESS REPORT ---
Subjective Progress Note for:: 07/29/19 Reason For Visit: DIABETIC FOOT INFECTION Physical Exam Vital Signs: Temp Pulse Resp BP Pulse Ox 97.6 F 99 17 114/65 90 L 07/29/19 07:28 07/29/19 07:28 07/29/19 07:28 07/29/19 07:28 07/29/19 07:28 Intake & Output 07/28/19 07/29/19 07/30/19 06:59 06:59 06:59 Intake Total 1520 Balance 1520 Weight 94.4 kg General appearance: PRESENT: no acute distress Head exam: PRESENT: atraumatic, normocephalic Eye exam: PRESENT: conjunctiva pink, EOMI, PERRLA. ABSENT: scleral icterus Mouth exam: PRESENT: tongue midline Neck exam: ABSENT: carotid bruit, JVD, lymphadenopathy, thyromegaly Respiratory exam: PRESENT: clear to auscultation kristina, unlabored. ABSENT: rales, rhonchi, wheezes Cardiovascular exam: PRESENT: RRR, +S1, +S2. ABSENT: diastolic murmur, rubs, systolic murmur Pulses: PRESENT: normal dorsalis pedis pul Vascular exam: PRESENT: normal capillary refill GI/Abdominal exam: PRESENT: distended, normal bowel sounds, soft. ABSENT: guarding, mass, organolmegaly, rebound, tenderness Rectal exam: PRESENT: deferred Extremities exam: PRESENT: full ROM, other - R foot swelling, erythema, ulcer on dorsal aspect of foot. ABSENT: calf tenderness, clubbing, pedal edema Neurological exam: PRESENT: alert, awake, oriented to person, oriented to place, oriented to time, oriented to situation, CN II-XII grossly intact. ABSENT: motor sensory deficit Psychiatric exam: PRESENT: appropriate affect, normal mood. ABSENT: homicidal ideation, suicidal ideation Skin exam: PRESENT: dry, intact, warm. ABSENT: cyanosis, rash Results Laboratory Results: 07/29/19 05:49 07/29/19 05:49 07/28/19 07/28/19 07/28/19 16:02 16:02 16:02 WBC 11.1 H RBC 2.95 L Hgb 10.6 L Hct 30.8 L MCV 104 H MCH 35.9 H MCHC 34.4 RDW 15.0 H Plt Count 183 Seg Neutrophils % 69.7 Retic Count (auto) Sodium 132.0 L Potassium 3.7 Chloride 94 L Carbon Dioxide 27 Anion Gap 11 BUN 3 L Creatinine 0.48 L Est GFR ( Amer) > 60 Glucose 149 H Lactic Acid 4.9 H Calcium 8.8 Magnesium Iron TIBC % Saturation Transferrin Ferritin Total Bilirubin 0.8 AST 47 H Alkaline Phosphatase 141 H Total Protein 7.5 Albumin 3.2 L Vitamin B12 Folate Urine Color Urine Appearance Urine pH Ur Specific [place] Urine Protein Urine Glucose (UA) Urine Ketones Urine Blood Urine Nitrite Ur Leukocyte Esterase Urine WBC (Auto) Urine RBC (Auto) 07/29/19 07/29/19 07/29/19 00:15 05:49 05:49 WBC 8.1 RBC 2.50 L Hgb 9.1 L Hct 25.9 L MCV 103 H MCH 36.4 H MCHC 35.2 RDW 15.0 H Plt Count 143 L Seg Neutrophils % 63.2 Retic Count (auto) 2.57 Sodium 131.7 L Potassium 3.7 Chloride 95 L Carbon Dioxide 30 Anion Gap 7 BUN 4 L Creatinine 0.46 L Est GFR ( Amer) > 60 Glucose 121 H Lactic Acid Calcium 8.8 Magnesium 1.5 L Iron 76.2 TIBC 313 % Saturation 24 Transferrin Ferritin 49.90 Total Bilirubin AST Alkaline Phosphatase Total Protein Albumin Vitamin B12 > 1000.0 H Folate 10.10 Urine Color [place] Urine Appearance SLIGHTLY-CLOUDY Urine pH 6.0 Ur Specific [place] 1.024 Urine Protein 30 H Urine Glucose (UA) 50 H Urine Ketones TRACE H Urine Blood NEGATIVE Urine Nitrite NEGATIVE Ur Leukocyte Esterase TRACE H Urine WBC (Auto) 3 Urine RBC (Auto) 2 07/29/19 07/29/19 05:49 05:49 WBC RBC Hgb Hct MCV MCH MCHC RDW Plt Count Seg Neutrophils % Retic Count (auto) Sodium Potassium Chloride Carbon Dioxide Anion Gap BUN Creatinine Est GFR ( Amer) Glucose Lactic Acid 1.4 Calcium Magnesium Iron TIBC % Saturation Transferrin 213.58 Ferritin Total Bilirubin AST Alkaline Phosphatase Total Protein Albumin Vitamin B12 Folate Urine Color Urine Appearance Urine pH Ur Specific [place] Urine Protein Urine Glucose (UA) Urine Ketones Urine Blood Urine Nitrite Ur Leukocyte Esterase Urine WBC (Auto) Urine RBC (Auto) Impressions: Venous Doppler Study 07/28/19 15:29 IMPRESSION: 1. Limited evaluation due to edema and swelling. See above comment. 2. NO EVIDENCE OF DVT OR SVT IN THE RIGHT LEG. Foot X-Ray 07/28/19 17:51 IMPRESSION: 1. No significant interval changes since the prior examination dated 07/25/2019. No radiographic evidence of osteomyelitis. 2. Soft tissue injury/defect again identified along the lateral aspect of the fifth metatarsophalangeal joint, consistent with the patient's known ulcer. 3. Soft tissue swelling involving the right foot. Abdomen Ultrasound 07/29/19 00:00 IMPRESSION: Splenomegaly. No other significant findings. Assessment and Plan - Diagnosis (1) Type 1 diabetes mellitus Qualifiers: Diabetes mellitus complication status: with circulatory complication Diabetes mellitus complication detail: with other circulatory complications Qualified Code(s): E10.59 - Type 1 diabetes mellitus with other circulatory complications Is this a current diagnosis for this admission?: Yes (2) Alcohol use disorder Is this a current diagnosis for this admission?: Yes (3) Cellulitis of right lower extremity Is this a current diagnosis for this admission?: Yes Plan: She has surrounding cellulitis as well as a diabetic foot ulcer. She apparently had a recent debridement done as outpatient. 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 Will continue to monitor (7) Anemia Qualifiers: Anemia type: unspecified type Qualified Code(s): D64.9 - Anemia, unspecified Is this a current diagnosis for this admission?: Yes Plan: Likely related to chronic disease, splenic sequestration - Time Time Spent with patient: 15-24 minutes Medications reviewed and adjusted accordingly: Yes Anticipated discharge: Home Within: within 72 hours
[2019-07-29] MEDS: MAGNESIUM OXIDE 400 MG TABLET PO SCH ×2 (11:15→17:41)
[2019-07-29] MEDS: DOCUSATE SODIUM 100 MG CAPSULE PO SCH (11:16)
[2019-07-29] MEDS: ENOXAPARIN SODIUM INJ 40 MG/0.4 ML DISP.SYRIN SUBCUT SCH (11:18)
[2019-07-29] MEDS ORDERED: ONDANSETRON HCL INJ/PF 4 MG/2 ML SDV ONE (11:23)
[2019-07-29] MEDS ORDERED: FENTANYL CITRATE INJ/PF 100 MCG/2 ML AMPUL ONE (11:23)
[2019-07-29] MEDS ORDERED: MIDAZOLAM 2 MG/2 ML INJ ONE (11:23)
[2019-07-29] MEDS ORDERED: PROPOFOL INJ 200 MG/20 ML VIAL IV ONE (11:23)
[2019-07-29] MEDS ORDERED: LIDOCAINE 1% INJ-PF (10 MG/ML) 30 ML SDV ONE (12:55)
[2019-07-29] MEDS ORDERED: ONDANSETRON HCL INJ/PF 4 MG/2 ML SDV IV PRN (13:04)
[2019-07-29] MEDS ORDERED: MORPHINE SULFATE 10 MG/ML INJ IV PRN (13:04)
[2019-07-29] MEDS ORDERED: DIPHENHYDRAMINE HCL 50 MG/ML VIAL IV PRN (13:04)
[2019-07-29] MEDS ORDERED: FENTANYL CITRATE INJ/PF 100 MCG/2 ML AMPUL IV PRN ×3 (13:04)
[2019-07-29] MEDS ORDERED: MEPERIDINE HCL/PF INJ 25 MG/1 ML DISP.SYRIN IV PRN (13:04)
--- NOTE | 2019-07-29 13:46 | Operative Report ---
Nonrecallable Operative Report DATE OF SURGERY: 07/29/19 PREOPERATIVE DIAGNOSIS: right diabetic foot infection POSTOPERATIVE DIAGNOSIS: right diabetic foot infection OPERATION: right 5th toe amputation and foot debridement SURGEON: BERNY ROBERTS ANESTHESIA: LMAC TISSUE REMOVED OR ALTERED: rt 5th toe COMPLICATIONS: none ESTIMATED BLOOD LOSS: 50cc. INTRAOPERATIVE FINDINGS: see note PROCEDURE: She was past the operating room awake alert stable condition. Table supine position given IV sedation right foot was prepped and draped in usual sterile manner for the procedure after appropriate timeout site verification the procedure commenced. Using 1% lidocaine plain the webspace of the right fifth toe was anesthetized. Then using a 15 blade a racquet incision was made in the webspace of the right fifth and fourth toe and it was carried down laterally to the lateral aspect of the foot at the base of the first metatarsal. Using then sharp dissection with dissect through the subcutaneous tissue and the tendon and the muscles and excised the toe with a transmetatarsal amputation using the bone cutters. Hemostasis was obtained with Bovie cautery a [id number] placed 2- 0 Vicryl sutures. There was no significant pus up into the proximal forefoot. The wounds then irrigated with normal saline the deep subcutaneous tissue was reapproximated with interrupted placed [id number] 2-0 Vicryl sutures and the skin was then loosely approximated with interrupted 2-0 nylon we cannot completely reapproximate the skin secondary to the significant swelling of the forefoot. The foot was then dressed with a sterile gauze dressing which completed the procedure. Estimated blood loss was less than 50 cc sponge needle counts correct x2
[2019-07-30] MEDS: PIPERACILLIN SODIUM/TAZOBACTAM 3.375 GM in NORMAL SALINE 100 ML IV SCH ×4 (01:05→17:23)
[2019-07-30] MEDS: VANCOMYCIN HCL 1,500 MG in DEXTROSE 5%-WATER 250 ML IV SCH (05:32)
[2019-07-30] MEDS: PANTOPRAZOLE SODIUM 20 MG TABLET.DR PO SCH (05:32)
[2019-07-30] MEDS: KETOROLAC TROMETHAMINE INJ/PF 30 MG/1 ML SDV IV PRN ×2 (05:35→10:05)
[2019-07-30] MEDS: LORAZEPAM 1 MG TABLET PO PRN ×2 (05:41→17:23)
[2019-07-30 07:07] LABS: VANCOMYCIN,TROUGH 24.6 ug/mL (5.0-20.0)
[2019-07-30] MEDS: DOCUSATE SODIUM 100 MG CAPSULE PO SCH (10:05)
[2019-07-30] MEDS: MAGNESIUM OXIDE 400 MG TABLET PO SCH ×2 (10:05→17:23)
[2019-07-30] MEDS: ENOXAPARIN SODIUM INJ 40 MG/0.4 ML DISP.SYRIN SUBCUT SCH (10:06)
[2019-07-30] MEDS: HYDROMORPHONE HCL INJ/PF 2 MG/ML AMPULE IV PRN ×2 (11:21→17:23)
[2019-07-30] MEDS: NORMAL SALINE 1000 ML 1,000 ML IV PRN ×2 (11:22→21:37)
--- NOTE | 2019-07-30 14:10 | PDOC PROGRESS REPORT ---
Subjective Progress Note for:: 07/30/19 Reason For Visit: DIABETIC FOOT INFECTION Physical Exam Vital Signs: Temp Pulse Resp BP Pulse Ox 98.4 F 81 16 105/70 94 07/30/19 07:35 07/30/19 13:16 07/30/19 13:16 07/30/19 07:35 07/30/19 13:16 Intake & Output 07/29/19 07/30/19 07/31/19 06:59 06:59 06:59 Intake Total 1620 4250 450 Output Total 10 Balance 1620 4240 450 Weight 94.4 kg 93.9 kg Results Laboratory Results: 07/29/19 05:49 07/29/19 05:49 Impressions: Venous Doppler Study 07/28/19 15:29 IMPRESSION: 1. Limited evaluation due to edema and swelling. See above comment. 2. NO EVIDENCE OF DVT OR SVT IN THE RIGHT LEG. Foot X-Ray 07/28/19 17:51 IMPRESSION: 1. No significant interval changes since the prior examination dated 07/25/2019. No radiographic evidence of osteomyelitis. 2. Soft tissue injury/defect again identified along the lateral aspect of the fifth metatarsophalangeal joint, consistent with the patient's known ulcer. 3. Soft tissue swelling involving the right foot. Abdomen Ultrasound 07/29/19 00:00 IMPRESSION: Splenomegaly. No other significant findings. 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 The patient's dressing was changed last night/early this morning due to bleeding. Bleeding was controlled, and the dressing was replaced. In the interest of hemostasis, I will leave the dressing intact for now. Continue with IV antibiotics. I will examine the wound tomorrow, for further planning. Depending on the patient's clinical course, she may require completion amputation of the entire foot. This has been discussed with her at length. Other treatment strategies are being employed at this time. Surgery will continue to follow very closely.
--- NOTE | 2019-07-30 15:41 | PDOC PROGRESS REPORT ---
Subjective Progress Note for:: 07/30/19 Subjective:: Patient c/o pain and swelling Reason For Visit: DIABETIC FOOT INFECTION Physical Exam Vital Signs: Temp Pulse Resp BP Pulse Ox 98.2 F 81 16 106/64 94 07/30/19 12:18 07/30/19 13:16 07/30/19 13:16 07/30/19 12:18 07/30/19 13:16 Intake & Output 07/29/19 07/30/19 07/31/19 06:59 06:59 06:59 Intake Total 1620 4250 450 Output Total 10 Balance 1620 4240 450 Weight 94.4 kg 93.9 kg General appearance: PRESENT: no acute distress Head exam: PRESENT: atraumatic, normocephalic Eye exam: PRESENT: conjunctiva pink, EOMI, PERRLA. ABSENT: scleral icterus Ear exam: PRESENT: normal external ear exam Mouth exam: PRESENT: moist Neck exam: ABSENT: carotid bruit, JVD, lymphadenopathy, thyromegaly Respiratory exam: PRESENT: clear to auscultation kristina, unlabored. ABSENT: rales, rhonchi, wheezes Cardiovascular exam: PRESENT: RRR, +S1, +S2. ABSENT: diastolic murmur, rubs, systolic murmur Vascular exam: PRESENT: normal capillary refill GI/Abdominal exam: PRESENT: normal bowel sounds, soft. ABSENT: distended, guarding, mass, organolmegaly, rebound, tenderness Rectal exam: PRESENT: deferred Extremities exam: PRESENT: +1 edema, other - R foot dressing. ABSENT: calf tenderness, clubbing, pedal edema Musculoskeletal exam: PRESENT: tenderness Neurological exam: PRESENT: alert, awake, oriented to person, oriented to place, oriented to time, oriented to situation, CN II-XII grossly intact. ABSENT: motor sensory deficit Psychiatric exam: PRESENT: appropriate affect, normal mood. ABSENT: homicidal ideation, suicidal ideation Skin exam: PRESENT: dry, intact, warm. ABSENT: cyanosis, rash Results Laboratory Results: 07/29/19 05:49 07/29/19 05:49 Impressions: Venous Doppler Study 07/28/19 15:29 IMPRESSION: 1. Limited evaluation due to edema and swelling. See above comm ent. 2. NO EVIDENCE OF DVT OR SVT IN THE RIGHT LEG. Foot X-Ray 07/28/19 17:51 IMPRESSION: 1. No significant interval changes since the prior examination dated 07/25/2019. No radiographic evidence of osteomyelitis. 2. Soft tissue injury/defect again identified along the lateral aspect of the fifth metatarsophalangeal joint, consistent with the patient's known ulcer. 3. Soft tissue swelling involving the right foot. Abdomen Ultrasound 07/29/19 00:00 IMPRESSION: Splenomegaly. No other significant findings. Assessment and Plan - Diagnosis (1) Type 1 diabetes mellitus Qualifiers: Diabetes mellitus complication status: with circulatory complication Diabetes mellitus complication detail: with other circulatory complications Qualified Code(s): E10.59 - Type 1 diabetes mellitus with other circulatory complications Is this a current diagnosis for this admission?: Yes (2) Alcohol use disorder Is this a current diagnosis for this admission?: Yes (3) Cellulitis of right lower extremity Is this a current diagnosis for this admission?: Yes (4) Diabetic foot ulcer Qualifiers: Diabetic foot ulcer location: midfoot Diabetes mellitus type: type 1 Laterality: right Non-pressure ulcer stage: with other severity Qualified Code(s): E10.621 - Type 1 diabetes mellitus with foot ulcer; L97.418 - 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 We will continue with antibiotics. Wound culture is currently sterile as well as a b lood culture. Hopefully bone biopsy was done during surgery (5) Tobacco dependency Is this a current diagnosis for this admission?: Yes (6) Splenomegaly Is this a current diagnosis for this admission?: Yes Plan: Likely related to ETOH abuse, no ascites seen on Sono, no thrombosis. Will continue to monitor (7) Anemia Qualifiers: Anemia type: unspecified type Qualified Code(s): D64.9 - Anemia, unspecified Is this a current diagnosis for this admission?: Yes Plan: Likely related to chronic disease, splenic sequestration (8) Hyponatremia Is this a current diagnosis for this admission?: Yes Plan: Likely related to ETOH - Time Time Spent with patient: 15-24 minutes Medications reviewed and adjusted accordingly: Yes
[2019-07-30] MEDS: VANCOMYCIN HCL 1,000 MG in DEXTROSE 5%-WATER 250 ML IV SCH (21:36)
[2019-07-31] MEDS: PIPERACILLIN SODIUM/TAZOBACTAM 3.375 GM in NORMAL SALINE 100 ML IV SCH ×5 (00:30→23:21)
[2019-07-31] MEDS: KETOROLAC TROMETHAMINE INJ/PF 30 MG/1 ML SDV IV PRN ×2 (01:13→06:22)
[2019-07-31] MEDS: LORAZEPAM 1 MG TABLET PO PRN ×2 (01:14→06:23)
[2019-07-31 06:10] LABS: ABSOLUTE EOSINOPHILS # (AUTO) 0.3 10^3/uL (0.0-0.6); ABSOLUTE LYMPHOCYTES (AUTO) 1.1 10^3/uL (0.5-4.7); ABSOLUTE MONOCYTES (AUTO) 0.8 10^3/uL (0.1-1.4); ABSOLUTE NEUT (AUTO) 4.4 10^3/uL (1.7-8.2); BASOPHILS % (AUTO) 0.4 % (0-2); EOSINOPHILS % (AUTO) 4.4 % (0-6); HEMOGLOBIN 8.3 g/dL (12.0-15.5); LYMPHOCYTES % (AUTO) 16.3 % (13-45); MEAN CORPUSCULAR HEMOGLOBIN 35.9 pg (27.0-33.4); MEAN CORPUSCULAR HGB CONC 34.6 g/dL (32.0-36.0); MEAN CORPUSCULAR VOLUME 104 fl (80-97); MONOCYTES % (AUTO) 11.5 % (3-13); PLATELET COUNT 121 10^3/uL (150-450); RED BLOOD COUNT 2.31 10^6/uL (3.72-5.28); RED CELL DISTRIBUTION WIDTH 15.7 % (11.5-14.0); SEGMENTED NEUTROPHILS % (AUTO) 67.4 % (42-78); TOTAL CELLS COUNTED % (AUTO) 100 %; WHITE BLOOD COUNT 6.5 10^3/uL (4.0-10.5)
[2019-07-31] MEDS: PANTOPRAZOLE SODIUM 20 MG TABLET.DR PO SCH (06:24)
[2019-07-31 06:31] LABS: ANION GAP 7 (5-19); BLOOD UREA NITROGEN 14 mg/dL (7-20); CARBON DIOXIDE 24 mmol/L (22-30); CHLORIDE 102 mmol/L (98-107); GLUCOSE 116 mg/dL (75-110); POTASSIUM 3.7 mmol/L (3.6-5.0)
[2019-07-31] MEDS ORDERED: HYDROCODONE/ACETAMINOPHEN 10-325 MG TABLET PO PRN (08:37)
[2019-07-31] MEDS: DOCUSATE SODIUM 100 MG CAPSULE PO SCH (09:58)
[2019-07-31] MEDS: ENOXAPARIN SODIUM INJ 40 MG/0.4 ML DISP.SYRIN SUBCUT SCH (09:58)
[2019-07-31] MEDS: MAGNESIUM OXIDE 400 MG TABLET PO SCH ×2 (09:58→17:55)
[2019-07-31] MEDS: VANCOMYCIN HCL 1,000 MG in DEXTROSE 5%-WATER 250 ML IV SCH (09:58)
--- NOTE | 2019-07-31 11:05 | PDOC PROGRESS REPORT ---
Subjective Reason For Visit: DIABETIC FOOT INFECTION Physical Exam Vital Signs: Temp Pulse Resp BP Pulse Ox 98.2 F 82 18 114/66 96 07/31/19 08:00 07/31/19 09:21 07/31/19 09:21 07/31/19 08:00 07/31/19 09:21 Intake & Output 07/30/19 07/31/19 08/01/19 06:59 06:59 06:59 Intake Total 4250 2580 100 Output Total 10 400 Balance 4240 2180 100 Weight 93.9 kg 94.5 kg Results Laboratory Results: 07/31/19 05:46 07/31/19 05:46 07/31/19 07/31/19 05:46 05:46 WBC 6.5 RBC 2.31 L Hgb 8.3 L Hct 24.0 L MCV 104 H MCH 35.9 H MCHC 34.6 RDW 15.7 H Plt Count 121 L Seg Neutrophils % 67.4 Sodium 132.5 L Potassium 3.7 Chloride 102 Carbon Dioxide 24 Anion Gap 7 BUN 14 Creatinine 1.89 H Est GFR ( Amer) 34 L Glucose 116 H Calcium 8.0 L Impressions: Venous Doppler Study 07/28/19 15:29 IMPRESSION: 1. Limited evaluation due to edema and swelling. See above comment. 2. NO EVIDENCE OF DVT OR SVT IN THE RIGHT LEG. Foot X-Ray 07/28/19 17:51 IMPRESSION: 1. No significant interval changes since the prior examination dated 07/25/2019. No radiographic evidence of osteomyelitis. 2. Soft tissue injury/defect again identified along the lateral aspect of the fifth metatarsophalangeal joint, consistent with the patient's known ulcer. 3. Soft tissue swelling involving the right foot. Abdomen Ultrasound 07/29/19 00:00 IMPRESSION: Splenomegaly. No other significant findings. 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 The patient's dressing was changed by me this morning. The patient still has lingering erythema on the dorsum of the foot. There is no purulence apparent. There is no active bleeding. There is still a moderate amount of swelling. I have recommended the patient keep the foot elevated. She should not put pressure on the forefoot (minimal weightbearing to heel is okay). Continue with IV antibiotics. Begin damp dressing changes twice daily. Surgery will continue to follow. Hopefully, her infection will resolve with the current treatment regimen. Depending on the patient's clinical course, she may require completion amputation of the entire foot. This has been dis cussed with her at length.
--- NOTE | 2019-07-31 14:27 | PDOC PROGRESS REPORT ---
Subjective Progress Note for:: 07/31/19 Subjective:: Patient c/o pain and swelling, slightly improved There is been no evidence of alcohol withdrawal so far Reason For Visit: DIABETIC FOOT INFECTION Physical Exam Vital Signs: Temp Pulse Resp BP Pulse Ox 98.2 F 82 18 114/66 96 07/31/19 08:00 07/31/19 09:21 07/31/19 09:21 07/31/19 08:00 07/31/19 09:21 Intake & Output 07/30/19 07/31/19 08/01/19 06:59 06:59 06:59 Intake Total 4250 2580 450 Output Total 10 400 Balance 4240 2180 450 Weight 93.9 kg 94.5 kg General appearance: PRESENT: no acute distress, well-developed, well-nourished Head exam: PRESENT: atraumatic, normocephalic Eye exam: PRESENT: conjunctiva pink, EOMI, PERRLA. ABSENT: scleral icterus Ear exam: PRESENT: normal external ear exam Mouth exam: PRESENT: moist, tongue midline Neck exam: ABSENT: carotid bruit, JVD, lymphadenopathy, thyromegaly Respiratory exam: PRESENT: clear to auscultation kristina, unlabored. ABSENT: rales, rhonchi, wheezes Cardiovascular exam: PRESENT: RRR, +S1, +S2. ABSENT: diastolic murmur, rubs, systolic murmur Pulses: PRESENT: normal dorsalis pedis pul Vascular exam: PRESENT: normal capillary refill GI/Abdominal exam: PRESENT: distended, normal bowel sounds, organolmegaly - Splenomegaly, soft. ABSENT: guarding, mass, rebound, tenderness Rectal exam: PRESENT: deferred Extremities exam: PRESENT: other - Status post right fourth and fifth toe amputations with surrounding erythema and swelling. ABSENT: calf tenderness, clubbing, pedal edema Neurological exam: PRESENT: alert, awake, oriented to person, oriented to place, oriented to time, oriented to situation, CN II-XII grossly intact. ABSENT: motor sensory deficit Psychiatric exam: PRESENT: appropriate affect, normal mood. ABSENT: homicidal ideation, suicidal ideation Skin exam: PRESENT: warm. ABSENT: cyanosis, rash Results Laboratory Results: 07/31/19 05:46 07/31/19 05:46 07/31/19 07/31/19 05:46 05:46 WBC 6.5 RBC 2.31 L Hgb 8.3 L Hct 24.0 L MCV 104 H MCH 35.9 H MCHC 34.6 RDW 15.7 H Plt Count 121 L Seg Neutrophils % 67.4 Sodium 132.5 L Potassium 3.7 Chloride 102 Carbon Dioxide 24 Anion Gap 7 BUN 14 Creatinine 1.89 H Est GFR ( Amer) 34 L Glucose 116 H Calcium 8.0 L Impressions: Venous Doppler Study 07/28/19 15:29 IMPRESSION: 1. Limited evaluation due to edema and swelling. See above comment. 2. NO EVIDENCE OF DVT OR SVT IN THE RIGHT LEG. Foot X-Ray 07/28/19 17:51 IMPRESSION: 1. No significant interval changes since the prior examination d ated 07/25/2019. No radiographic evidence of osteomyelitis. 2. Soft tissue injury/defect again identified along the lateral aspect of the fifth metatarsophalangeal joint, consistent with the patient's known ulcer. 3. Soft tissue swelling involving the right foot. Abdomen Ultrasound 07/29/19 00:00 IMPRESSION: Splenomegaly. No other significant findings. Assessment and Plan - Diagnosis (1) Type 1 diabetes mellitus Qualifiers: Diabetes mellitus complication status: with circulatory complication Diabetes mellitus complication detail: with other circulatory complications Qualified Code(s): E10.59 - Type 1 diabetes mellitus with other circulatory complications Is this a current diagnosis for this admission?: Yes (2) Alcohol use disorder Is this a current diagnosis for this admission?: Yes (3) Cellulitis of right lower extremity Is this a current diagnosis for this admission?: Yes (4) Diabetic foot ulcer Qualifiers: Diabetic foot ulcer location: midfoot Diabetes mellitus type: type 1 Laterality: right Non-pressure ulcer stage: with other severity Qualified Code(s): E10.621 - Type 1 diabetes mellitus with foot ulcer; L97.418 - 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 Continue to monitor her hemoglobin and transfuse if needed
[2019-07-31] MEDS: NORMAL SALINE 1000 ML 1,000 ML IV PRN (17:55)
[2019-07-31] MEDS: OXYCODONE-ACETAMINOPHEN 5-325 MG TABLET PO PRN (23:18)
[2019-08-01] MEDS: KETOROLAC TROMETHAMINE INJ/PF 30 MG/1 ML SDV IV PRN ×3 (05:33→18:34)
[2019-08-01] MEDS: PANTOPRAZOLE SODIUM 20 MG TABLET.DR PO SCH (05:33)
[2019-08-01] MEDS: PIPERACILLIN SODIUM/TAZOBACTAM 3.375 GM in NORMAL SALINE 100 ML IV SCH ×2 (05:33→11:53)
--- NOTE | 2019-08-01 07:56 | PDOC PROGRESS REPORT ---
Subjective Progress Note for:: 08/01/19 Subjective:: feels ok Reason For Visit: DIABETIC FOOT INFECTION Physical Exam Vital Signs: Temp Pulse Resp BP Pulse Ox 98.2 F 85 16 110/57 L 99 07/31/19 23:22 07/31/19 23:22 07/31/19 23:22 07/31/19 23:22 07/31/19 23:22 Intake & Output 07/31/19 08/01/19 08/02/19 06:59 06:59 06:59 Intake Total 2580 3850 Output Total 400 Balance 2180 3850 Weight 94.5 kg 94 kg General appearance: PRESENT: no acute distress Head exam: PRESENT: normocephalic Eye exam: PRESENT: EOMI Ear exam: PRESENT: TM's normal bilaterally Mouth exam: PRESENT: moist Teeth exam: PRESENT: poor dentation Neck exam: PRESENT: full ROM Respiratory exam: PRESENT: clear to auscultation kristina Cardiovascular exam: PRESENT: RRR Pulses: PRESENT: +2 pedal pulses bilateral Breast: PRESENT: Normal GI/Abdominal exam: PRESENT: soft Rectal exam: PRESENT: deferred Extremities exam: PRESENT: other - right lat foot wound clean, sutures in place no cellulitis Neurological exam: PRESENT: alert Psychiatric exam: PRESENT: appropriate affect Skin exam: PRESENT: dry Results Laboratory Results: 07/31/19 05:46 07/31/19 05:46 Impressions: Venous Doppler Study 07/28/19 15:29 IMPRESSION: 1. Limited evaluation due to edema and swelling. See above comment. 2. NO EVIDENCE OF DVT OR SVT IN THE RIGHT LEG. Foot X-Ray 07/28/19 17:51 IMPRESSION: 1. No significant interval changes since the prior examination dated 07/25/2019. No radiographic evidence of osteomyelitis. 2. Soft tissue injury/defect again identified along the lateral aspect of the fifth metatarsophalangeal joint, consistent with the patient's known ulcer. 3. Soft tissue swelling involving the right foot. Abdomen Ultrasound 07/29/19 00:00 IMPRESSION: Splenomegaly. No other significant findings. Assessment & Plan - Plan Summary Plan Summary: right diabetic foot infection wound clean pt to cont with bid dressing changes home health ordered ok from surgical standpt for discharge pt needs a surgical clinic f/u in 7-10 days.
[2019-08-01] MEDS: ENOXAPARIN SODIUM INJ 40 MG/0.4 ML DISP.SYRIN SUBCUT SCH (09:04)
[2019-08-01] MEDS: MAGNESIUM OXIDE 400 MG TABLET PO SCH ×2 (09:23→17:53)
[2019-08-01] MEDS: OXYCODONE-ACETAMINOPHEN 5-325 MG TABLET PO PRN ×3 (09:23→18:35)
[2019-08-01] MEDS: LORAZEPAM 1 MG TABLET PO PRN ×2 (09:23→17:53)
[2019-08-01] MEDS: DOCUSATE SODIUM 100 MG CAPSULE PO SCH (09:23)
[2019-08-01 10:45] LABS: VANCOMYCIN,TROUGH 34.1 ug/mL (5.0-20.0)
--- NOTE | 2019-08-01 12:51 | PDOC PROGRESS REPORT ---
Subjective Progress Note for:: 08/01/19 Subjective:: Patient c/o pain and swelling, slightly improved There is been no evidence of alcohol withdrawal so far c/o back pain Reason For Visit: DIABETIC FOOT INFECTION Physical Exam Vital Signs: Temp Pulse Resp BP Pulse Ox 97.8 F 83 18 118/63 96 08/01/19 07:56 08/01/19 07:56 08/01/19 07:56 08/01/19 07:56 08/01/19 07:56 Intake & Output 07/31/19 08/01/19 08/02/19 06:59 06:59 06:59 Intake Total 2580 3850 100 Output Total 400 Balance 2180 3850 100 Weight 94.5 kg 94 kg General appearance: PRESENT: no acute distress, well-developed, well-nourished Head exam: PRESENT: atraumatic, normocephalic Eye exam: PRESENT: conjunctiva pink, EOMI, PERRLA. ABSENT: scleral icterus Ear exam: PRESENT: normal external ear exam Mouth exam: PRESENT: moist, tongue midline Neck exam: ABSENT: carotid bruit, JVD, lymphadenopathy, thyromegaly Respiratory exam: PRESENT: clear to auscultation kristina, unlabored. ABSENT: rales, rhonchi, wheezes Cardiovascular exam: PRESENT: RRR, +S1, +S2. ABSENT: diastolic murmur, rubs, systolic murmur Pulses: PRESENT: normal dorsalis pedis pul Vascular exam: PRESENT: normal capillary refill GI/Abdominal exam: PRESENT: normal bowel sounds, organolmegaly - splenomegaly, soft, other - small ventral hernia. ABSENT: distended, guarding, mass, rebound, tenderness Rectal exam: PRESENT: deferred Extremities exam: PRESENT: full ROM, other - Right foot dressing. ABSENT: calf tenderness, clubbing, pedal edema Neurological exam: PRESENT: alert, awake, oriented to person, oriented to place, oriented to time, oriented to situation, CN II-XII grossly intact. ABSENT: thea r sensory deficit Psychiatric exam: PRESENT: appropriate affect, normal mood. ABSENT: homicidal ideation, suicidal ideation Skin exam: PRESENT: dry, intact, warm. ABSENT: cyanosis, rash Results Laboratory Results: 07/31/19 05:46 08/01/19 09:39 08/01/19 09:39 Creatinine 2.55 H Est GFR ( Amer) 24 L 07/28/19 19:41 Foot - Right Gram Stain - Final 07/29/19 13:21 Toe - Right Fifth Gram Stain - Final 07/29/19 13:21 Toe - Right Fifth Wound Culture - Final NO AEROBIC OR ANAEROBIC ORGANISMS RECOVERED Impressions: Venous Doppler Study 07/28/19 15:29 IMPRESSION: 1. Limited evaluation due to edema and swelling. See above comment. 2. NO EVIDENCE OF DVT OR SVT IN THE RIGHT LEG. Foot X-Ray 07/28/19 17:51 IMPRESSION: 1. No significant interval changes since the prior examination dated 07/25/2019. No radiographic evidence of osteomyelitis. 2. Soft tissue injury/defect again identified along the lateral aspect of the fifth metatarsophalangeal joint, consistent with the patient's known ulcer. 3. Soft tissue swelling involving the right foot. Abdomen Ultrasound 07/29/19 00:00 IMPRESSION: Splenomegaly. No other significant findings. Assessment and Plan - Diagnosis (1) Type 1 diabetes mellitus Qualifiers: Diabetes mellitus complication status: with circulatory complication Diabetes mellitus complication detail: with other circulatory complications Qualified Code(s): E10.59 - Type 1 diabetes mellitus with other circulatory complications Is this a current diagnosis for this admission?: Yes (2) Alcohol use disorder Is this a current diagnosis for this admission?: Yes (3) Cellulitis of right lower extremity Is this a current diagnosis for this admission?: Yes (4) Diabetic foot ulcer Qualifiers: Diabetic foot ulcer location: midfoot Diabetes mellitus type: type 1 Laterality: right Non-pressure ulcer stage: with other severity Qualified Code(s): E10.621 - Type 1 diabetes mellitus with foot ulcer; L97.418 - 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 (5) Tobacco dependency Is this a current diagnosis for this admission?: Yes (6) Splenomegaly Is this a current diagnosis for this admission?: Yes Plan: Likely related to ETOH abuse, no ascites seen on Sono, no thrombosis. Will continue to monitor she will need outpatient follow-up with GI for further evaluation of splenomegaly (7) Anemia Qualifiers: Anemia type: unspecified type Qualified Code(s): D64.9 - Anemia, unspecified Is this a current diagnosis for this admission?: Yes (8) Hyponatremia Is this a current diagnosis for this admission?: Yes (9) TONYA (acute kidney injury) Is this a current diagnosis for this admission?: Yes Plan: Iatrogenic DC Vancomycin Monitor kidney function - Plan Summary Summary: Wound culture is currently yielding group D enterococcus as well as MRSA. As per surgery wound is clean and to need to continue with twice daily dressing changes once discharge. Home health has been ordered. She will follow-up with surgical clinic in 7 to 10 days. Patient however is still on IV antibiotics with acute renal failure. Her creatinine is 2.5 and was 0.48 on admission just 4 days ago. Vancomycin level is 34.1 she would benefit from some IV fluid hydration. Her creatinine will hopefully trend downwards - Time Time Spent with patient: 25-34 minutes
[2019-08-01] MEDS: AMOXICILLIN TR/POT CLAVULANATE 500-125 MG TAB PO SCH ×2 (14:10→22:08)
[2019-08-01] MEDS: NORMAL SALINE 1000 ML 1,000 ML IV PRN (22:08)
[2019-08-02] MEDS: OXYCODONE-ACETAMINOPHEN 5-325 MG TABLET PO PRN ×5 (04:50→22:11)
[2019-08-02] MEDS: AMOXICILLIN TR/POT CLAVULANATE 500-125 MG TAB PO SCH ×3 (05:14→22:12)
[2019-08-02] MEDS: PANTOPRAZOLE SODIUM 20 MG TABLET.DR PO SCH (06:08)
[2019-08-02] MEDS: LORAZEPAM 1 MG TABLET PO PRN ×2 (06:11→22:11)
[2019-08-02 06:17] LABS: ABSOLUTE EOSINOPHILS # (AUTO) 0.3 10^3/uL (0.0-0.6); ABSOLUTE LYMPHOCYTES (AUTO) 1.2 10^3/uL (0.5-4.7); ABSOLUTE MONOCYTES (AUTO) 0.8 10^3/uL (0.1-1.4); ABSOLUTE NEUT (AUTO) 6.5 10^3/uL (1.7-8.2); BASOPHILS % (AUTO) 0.5 % (0-2); EOSINOPHILS % (AUTO) 3.4 % (0-6); HEMATOCRIT 25.2 % (36.0-47.0); HEMOGLOBIN 8.7 g/dL (12.0-15.5); LYMPHOCYTES % (AUTO) 13.3 % (13-45); MEAN CORPUSCULAR HEMOGLOBIN 35.9 pg (27.0-33.4); MEAN CORPUSCULAR HGB CONC 34.6 g/dL (32.0-36.0); MEAN CORPUSCULAR VOLUME 104 fl (80-97); MONOCYTES % (AUTO) 9.2 % (3-13); PLATELET COUNT 118 10^3/uL (150-450); RED BLOOD COUNT 2.43 10^6/uL (3.72-5.28); RED CELL DISTRIBUTION WIDTH 16.2 % (11.5-14.0); SEGMENTED NEUTROPHILS % (AUTO) 73.6 % (42-78); TOTAL CELLS COUNTED % (AUTO) 100 %; WHITE BLOOD COUNT 8.8 10^3/uL (4.0-10.5)
[2019-08-02 06:34] LABS: ANION GAP 9 (5-19); BLOOD UREA NITROGEN 16 mg/dL (7-20); CALCIUM 8.4 mg/dL (8.4-10.2); CARBON DIOXIDE 22 mmol/L (22-30); CHLORIDE 103 mmol/L (98-107); GLUCOSE 99 mg/dL (75-110); POTASSIUM 3.9 mmol/L (3.6-5.0)
[2019-08-02] MEDS: KETOROLAC TROMETHAMINE INJ/PF 30 MG/1 ML SDV IV PRN (09:06)
[2019-08-02] MEDS: MAGNESIUM OXIDE 400 MG TABLET PO SCH ×2 (09:06→17:30)
[2019-08-02] MEDS: DOCUSATE SODIUM 100 MG CAPSULE PO SCH (09:06)
[2019-08-02] MEDS: ENOXAPARIN SODIUM INJ 40 MG/0.4 ML DISP.SYRIN SUBCUT SCH (09:07)
[2019-08-02 11:00] LABS: VANCOMYCIN,TROUGH 26.7 ug/mL (5.0-20.0)
--- NOTE | 2019-08-02 19:28 | PDOC PROGRESS REPORT ---
Subjective Progress Note for:: 08/02/19 Subjective:: Patient is unhappy about being in the hospital. She wishes to go home. Now believes she realizes the importance of monitoring her renal function. Reason For Visit: DIABETIC FOOT INFECTION Physical Exam Vital Signs: Temp Pulse Resp BP Pulse Ox 97.9 F 83 18 104/66 93 08/02/19 16:21 08/02/19 16:21 08/02/19 16:21 08/02/19 16:21 08/02/19 16:21 Intake & Output 08/01/19 08/02/19 08/03/19 06:59 06:59 06:59 Intake Total 4850 2100 850 Balance 4850 2100 850 Weight 94 kg 94 kg General appearance: PRESENT: no acute distress, disheveled, well-developed Respiratory exam: PRESENT: symmetrical, unlabored. ABSENT: rales, rhonchi, tachypnea, wheezes Cardiovascular exam: PRESENT: RRR, +S1, +S2 GI/Abdominal exam: PRESENT: normal bowel sounds, soft. ABSENT: distended, tenderness Rectal exam: PRESENT: deferred Gentrourinary exam: ABSENT: indwelling catheter Extremities exam: PRESENT: pedal edema Musculoskeletal exam: PRESENT: other - Bulky dressing on right foot Neurological exam: PRESENT: alert, awake, oriented to person, oriented to place, oriented to time, oriented to situation, CN II-XII grossly intact Psychiatric exam: PRESENT: anxious. ABSENT: agitated Results Laboratory Results: 08/02/19 06:00 08/02/19 06:00 08/02/19 08/02/19 06:00 06:00 WBC 8.8 RBC 2.43 L Hgb 8.7 L Hct 25.2 L MCV 104 H MCH 35.9 H MCHC 34.6 RDW 16.2 H Plt Count 118 L Seg Neutrophils % 73.6 Sodium 134.0 L Potassium 3.9 Chloride 103 Carbon Dioxide 22 Anion Gap 9 BUN 16 Creatinine 2.94 H Est GFR ( Amer) 21 L Glucose 99 Calcium 8.4 07/28/19 17:06 Blood Blood Culture - Final NO GROWTH IN 5 DAYS 07/28/19 16:02 Blood Blood Culture - Final NO GROWTH IN 5 DAYS Impressions: Venous Doppler Study 07/28/19 15:29 IMPRESSION: 1. Limited evaluation due to edema and swelling. See above comment. 2. NO EVIDENCE OF DVT OR SVT IN THE RIGHT LEG. Foot X-Ray 07/28/19 17:51 IMPRESSION: 1. No significant interval changes since the prior examination dated 07/25/2019. No radiographic evidence of osteomyelitis. 2. Soft tissue injury/defect again identified along the lateral aspect of the fifth metatarsophalangeal joint, consistent with the patient's known ulcer. 3. Soft tissue swelling involving the right foot. Abdomen Ultrasound 07/29/19 00:00 IMPRESSION: Splenomegaly. No other significant findings. Assessment and Plan - Diagnosis (1) Diabetic foot ulcer Qualifiers: Diabetic foot ulcer location: midfoot Diabetes mellitus type: type 1 Laterality: right Non-pressure ulcer stage: with other severity Qualified Code(s): E10.621 - Type 1 diabetes mellitus with foot ulcer; L97.418 - Non-pressure chronic ulcer of right heel and midfoot with other specified severity Is this a current diagnosis for this admission?: Yes Plan: Patient has a nonpressure chronic ulcer of the right heel and midfoot. 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 08/02/2019 Enterococcus and methicillin-resistant staph aureus present. Currently on vancomycin however levels are supratherapeutic. This is likely causing her acute kidney injury. Await infectious disease input. Consider changing to Zyvox (2) TONYA (acute kidney injury) Is this a current diagnosis for this admission?: Yes Plan: Iatrogenic DC Vancomycin Monitor kidney function 08/02/2019 Continue to monitor. Awaiting infectious disease recommendations to consider discontinuing vancomycin. (3) Alcohol use disorder Is this a current diagnosis for this admission?: Yes Plan: Patient will be monitored for alcohol withdrawal. She drinks every day although she was unable to quantify for me 08/02/2019 Continue to monitor for any signs of withdrawal and treat accordingly (4) Cellulitis of right lower extremity Is this a current diagnosis for this admission?: Yes Plan: She has surrounding cellulitis as well as a diabetic foot ulcer. She apparently had a recent debridement done as outpatient. 07/28 Patient declines amputation as per Surgery Will continue with IV antibiotics, follow up on cultures 08/02/2019 Antibiotics as above. - Plan Summary Summary: Wound culture is currently yielding group D enterococcus as well as MRSA. As per surgery wound is clean and to need to continue with twice daily dressing changes once discharge. Home health has been ordered. She will follow-up with surgical clinic in 7 to 10 days. Patient however is still on IV antibiotics with acute renal failure. Her creatinine is 2.5 and was 0.48 on admission just 4 days ago. Vancomycin level is 34.1 she would benefit from some IV fluid hydration. Her creatinine will hopefully trend downwards - Time Time Spent with patient: Less than 15 minutes Medications reviewed and adjusted accordingly: Yes Anticipated discharge: Home with Homehealth
[2019-08-03] MEDS: LORAZEPAM 1 MG TABLET PO PRN ×4 (02:15→17:13)
[2019-08-03] MEDS: OXYCODONE-ACETAMINOPHEN 5-325 MG TABLET PO PRN ×4 (02:16→17:13)
[2019-08-03] MEDS: NORMAL SALINE 1000 ML 1,000 ML IV PRN ×3 (02:16→17:18)
[2019-08-03 03:05] LABS: APPEARANCE,URINE CLOUDY; BILIRUBIN,URINE NEGATIVE (NEGATIVE); COLOR,URINE YELLOW; GLUCOSE, URINE NEGATIVE (NEGATIVE); KETONES,URINE NEGATIVE (NEGATIVE); LEUKOCYTE ESTERASE,URINE SMALL (NEGATIVE); NITRITE,URINE NEGATIVE (NEGATIVE); PROTEIN,URINE NEGATIVE (NEGATIVE); URINE SPECIFIC GRAVITY 1.014; UROBILINOGEN,URINE NEGATIVE mg/dL (<2.0)
[2019-08-03] MEDS: AMOXICILLIN TR/POT CLAVULANATE 500-125 MG TAB PO SCH ×3 (05:10→21:31)
[2019-08-03] MEDS: PANTOPRAZOLE SODIUM 20 MG TABLET.DR PO SCH (05:10)
[2019-08-03 06:49] LABS: ABSOLUTE EOSINOPHILS # (AUTO) 0.2 10^3/uL (0.0-0.6); ABSOLUTE LYMPHOCYTES (AUTO) 1.2 10^3/uL (0.5-4.7); ABSOLUTE MONOCYTES (AUTO) 0.9 10^3/uL (0.1-1.4); ABSOLUTE NEUT (AUTO) 7.6 10^3/uL (1.7-8.2); BASOPHILS % (AUTO) 0.4 % (0-2); EOSINOPHILS % (AUTO) 2.2 % (0-6); HEMATOCRIT 24.1 % (36.0-47.0); HEMOGLOBIN 8.1 g/dL (12.0-15.5); LYMPHOCYTES % (AUTO) 11.6 % (13-45); MEAN CORPUSCULAR HEMOGLOBIN 35.4 pg (27.0-33.4); MEAN CORPUSCULAR HGB CONC 33.8 g/dL (32.0-36.0); MEAN CORPUSCULAR VOLUME 105 fl (80-97); MONOCYTES % (AUTO) 9.5 % (3-13); PLATELET COUNT 110 10^3/uL (150-450); SEGMENTED NEUTROPHILS % (AUTO) 76.3 % (42-78); TOTAL CELLS COUNTED % (AUTO) 100 %
[2019-08-03 07:12] LABS: ALBUMIN 2.3 g/dL (3.5-5.0); ANION GAP 9 (5-19); BLOOD UREA NITROGEN 19 mg/dL (7-20); CARBON DIOXIDE 20 mmol/L (22-30); CHLORIDE 103 mmol/L (98-107); GLUCOSE 115 mg/dL (75-110); PHOSPHORUS 5.5 mg/dL (2.5-4.5); POTASSIUM 3.9 mmol/L (3.6-5.0)
[2019-08-03] MEDS: ALBUMIN HUMAN 12.5 GM/50 ML RTUINJ IV SCH ×2 (08:26→09:41)
--- NOTE | 2019-08-03 11:18 | Progress Note ---
Provider Note Provider Note: [facility] ID Telephone Advice Consultation Chart reviewed. Patient is a 49-year-old woman with long history of Diabetes Mellitus, with multiple complications who has been dealing with a right foot infection for some time now. She was seen a body designer and visiting a wound clinic. She had partial debridement of the infection in her foot but she started having worsening pain, redness and swelling. She was recommended to take levofloxacin (or cipro?) and cephalexin. Her symptoms did not improve and she was admitted on 07/27. She was evaluated by surgery who performed I&D with amputation of 4th and 5th toes. Initial wound cultures were positive for MRSA and Enterococcus faecalis, but she was already on cephalexin and levofloxacin. She was started on vancomycin and zosyn. Her creatinine significantly worsened. ID consulted for recommendations. PMH: DM1 Hypertension Asthma COPD PSH: Gastric bypass Cholecystectomy Allergies: fire ant Allergy (Severe, Verified 08/01/19 13:19) Anaphylaxis bee venom protein (honey bee) Allergy (Verified 08/01/19 13:17) morphine [Morphine] Allergy (Verified 03/12/19 05:57) nitrofurantoin macrocrystalline [From Macrobid] Allergy (Verified 03/12/19 05:57) Sulfa (Sulfonamide Antibiotics) Allergy (Verified 03/12/19 05:57) sulfamethoxazole [From Bactrim] Allergy (Verified 03/12/19 05:57) trimethoprim [From Bactrim] Allergy (Verified 03/12/19 05:57) Medications: Escitalopram Oxalate [Lexapro] 40 mg PO DAILY 01/10/18 Metformin HCl 1,000 mg PO BID 01/10/18 Oxycodone HCl [Oxycodone HCl 10 MG Tablet] 10 mg PO 5XD 08/20/18 Buspirone HCl [Buspar 10 mg Tablet] 7.5 mg PO BID 07/28/19 Cholecalciferol (Vitamin D3) [Vitamin D3 1000 Unit Tablet] 1,000 unit PO DAILY 07/28/19 Ergocalciferol (Vitamin D2) [Drisdol 50,000 unit (1.25MG) Capsule] 50,000 unit PO FR@1000 07/28/19 Furosemide [Lasix 40 mg Tablet] 40 mg PO DAILY 07/28/19 Iron 18 mg PO DAILY 07/28/19 L.acidoph,Paracasei, B.lactis [Probiotic] 1 tab PO DAILY 07/28/19 Niacin 500 mg PO DAILY 07/28/19 Vital Signs: Temp Pulse Resp BP Pulse Ox 98.4 F 84 16 124/60 94 08/03/19 07:48 08/03/19 07:48 08/03/19 07:48 08/03/19 07:48 08/03/19 07:48 Intake & Output 08/02/19 08/03/19 08/04/19 06:59 06:59 06:59 Intake Total 2100 3250 650 Output Total 200 Balance 2100 3050 650 Weight 94 kg 94.5 kg Weight/Height Weight 94.5 kg Height 5 ft 9 in Laboratories: 08/03/19 06:24 08/03/19 06:24 MCV 105 fl (80-97) H 08/03/19 06:24 MCH 35.4 pg (27.0-33.4) H 08/03/19 06:24 MCHC 33.8 g/dL (32.0-36.0) 08/03/19 06:24 RDW 16.0 % (11.5-14.0) H 08/03/19 06:24 Seg Neutrophils % 76.3 % (42-78) 08/03/19 06:24 Retic Count (auto) 2.57 % (0.66-2.85) 07/29/19 05:49 Chloride 103 mmol/L (98-107) 08/03/19 06:24 Carbon Dioxide 20 mmol/L (22-30) L 08/03/19 06:24 Anion Gap 9 (5-19) 08/03/19 06:24 Est GFR ( Amer) 19 (>60) L 08/03/19 06:24 Glucose 115 mg/dL (75-110) H 08/03/19 06:24 Lactic Acid 1.4 mmol/L (0.7-2.1) 07/29/19 05:49 Calcium 8.0 mg/dL (8.4-10.2) L 08/03/19 06:24 Phosphorus 5.5 mg/dL (2.5-4.5) H 08/03/19 06:24 Magnesium 2.2 mg/dL (1.6-2.3) 08/03/19 06:24 Iron 76.2 ug/dL (37-170) 07/29/19 05:49 TIBC 313 ug/dL (250-450) 07/29/19 05:49 % Saturation 24 % 07/29/19 05:49 Transferrin 213.58 mg/dL (206.00-381.00) 07/29/19 05:49 Ferritin 49.90 ng/mL (6.2-137.0) 07/29/19 05:49 Total Bilirubin 0.8 mg/dL (0.2-1.3) 07/28/19 16:02 AST 47 U/L (14-36) H 07/28/19 16:02 Alkaline Phosphatase 141 U/L (38-126) H 07/28/19 16:02 Total Protein 7.5 g/dL (6.3-8.2) 07/28/19 16:02 Albumin 2.3 g/dL (3.5-5.0) L 08/03/19 06:24 Vitamin B12 > 1000.0 pg/mL (239-931) H 07/29/19 05:49 Folate 10.10 ng/mL (>2.76) 07/29/19 05:49 Urine Color YELLOW 08/03/19 02:38 Urine Appearance CLOUDY 08/03/19 02:38 Urine pH 5.0 (5.0-9.0) 08/03/19 02:38 Ur Specific [place] 1.014 08/03/19 02:38 Urine Protein NEGATIVE mg/dL (NEGATIVE) 08/03/19 02:38 Urine Glucose (UA) NEGATIVE mg/dL (NEGATIVE) 08/03/19 02:38 Urine Ketones NEGATIVE mg/dL (NEGATIVE) 08/03/19 02:38 Urine Blood LARGE (NEGATIVE) H 08/03/19 02:38 Urine Nitrite NEGATIVE (NEGATIVE) 08/03/19 02:38 Ur Leukocyte Esterase SMALL (NEGATIVE) H 08/03/19 02:38 Urine WBC (Auto) 5 /HPF 08/03/19 02:38 Urine RBC (Auto) 4 /HPF 08/03/19 02:38 07/28/19 17:06 Blood Blood Culture - Final NO GROWTH IN 5 DAYS 07/28/19 16:02 Blood Blood Culture - Final NO GROWTH IN 5 DAYS Microbiology: Wound culture 07/27 MRSA, Enterococcus faecalis 07/28 NGTD Radiology: Venous Doppler Study 07/28/19 15:29 IMPRESSION: 1. Limited evaluation due to edema and swelling. See above comment. 2. NO EVIDENCE OF DVT OR SVT IN THE RIGHT LEG. Foot X-Ray 07/28/19 17:51 IMPRESSION: 1. No significant interval changes since the prior examination dated 07/25/2019. No radiographic evidence of osteomyelitis. 2. Soft tissue injury/defect again identified along the lateral aspect of the fifth metatarsophalangeal joint, consistent with the patient's known ulcer. 3. Soft tissue swelling involving the right foot. Abdomen Ultrasound 07/29/19 00:00 IMPRESSION: Splenomegaly. No other significant findings. Assessment and Recommendations: Patient evaluated due to diabetic foot infection with necrosis s/p toe amputation. Blood cultures were negative. Initial wound culture positive with MRSA and Enterococcus but yield affected by prior antibiotic therapy given (fluoroquinolone + cephalexin). New wound culture was negative, assuming good s ource control. Nevertheless, according to the surgeon's impression she might still need a BKA considering the severity of the infection and her comorbidities. For this reason, will recommend to treat for osteomyelitis with daptomycin 6mg/kg every 48 hr (renally adjusted) and meropenem bid (renally adjusted) for 6 weeks. Even after treatment for residual osteomyelitis, there is still risk of treatment failure and need for further amputation. While on antibiotics, please monitor CBC, CMP, CK, ESR and CRP. Avoid statins with daptomycin. Please remove PICC line at completion of therapy. Please call if any questions. Rosalee Wilder MD [facility] [id number]
[2019-08-03] MEDS: DOCUSATE SODIUM 100 MG CAPSULE PO SCH (12:01)
[2019-08-03] MEDS: MAGNESIUM OXIDE 400 MG TABLET PO SCH ×2 (12:01→17:13)
[2019-08-03] MEDS: ENOXAPARIN SODIUM INJ 30 MG/0.3 ML DISP.SYRIN SUBCUT SCH (12:06)
--- NOTE | 2019-08-03 15:24 | PDOC PROGRESS REPORT ---
Subjective Progress Note for:: 08/03/19 Subjective:: The patient was sleeping. She awakens easily. She is very frustrated that the serum creatinine is higher. She wants to go home. She in fact began crying. Reason For Visit: DIABETIC FOOT INFECTION Physical Exam Vital Signs: Temp Pulse Resp BP Pulse Ox 98.4 F 84 16 124/60 94 08/03/19 07:48 08/03/19 07:48 08/03/19 07:48 08/03/19 07:48 08/03/19 07:48 Intake & Output 08/02/19 08/03/19 08/04/19 06:59 06:59 06:59 Intake Total 2100 3250 700 Output Total 200 Balance 2100 3050 700 Weight 94 kg 94.5 kg General appearance: PRESENT: cooperative, mild distress, well-developed Head exam: PRESENT: atraumatic, normocephalic Eye exam: PRESENT: conjunctiva pale. ABSENT: scleral icterus Ear exam: PRESENT: normal external ear exam. ABSENT: bleeding, drainage Teeth exam: PRESENT: poor dentation Respiratory exam: PRESENT: clear to auscultation kristina, symmetrical, unlabored. ABSENT: prolonged expiratory phas, rales, rhonchi, tachypnea, wheezes Cardiovascular exam: PRESENT: RRR, +S1, +S2. ABSENT: diastolic murmur, irregular rhythm, systolic murmur GI/Abdominal exam: PRESENT: normal bowel sounds, soft. ABSENT: distended, guarding, tenderness Rectal exam: PRESENT: deferred Gentrourinary exam: ABSENT: indwelling catheter Extremities exam: PRESENT: pedal edema Neurological exam: PRESENT: alert, awake, oriented to person, oriented to place, oriented to time, oriented to situation, CN II-XII grossly intact Psychiatric exam: PRESENT: depressed - Tearful. ABSENT: agitated, anxious Results Laboratory Results: 08/03/19 06:24 08/03/19 06:24 08/03/19 08/03/19 08/03/19 02:38 06:24 06:24 WBC 10.0 RBC 2.30 L Hgb 8.1 L Hct 24.1 L MCV 105 H MCH 35.4 H MCHC 33.8 RDW 16.0 H Plt Count 110 L Seg Neutrophils % 76.3 Sodium 132.0 L Potassium 3.9 Chloride 103 Carbon Dioxide 20 L Anion Gap 9 BUN 19 Creatinine 3.11 H Est GFR ( Amer) 19 L Glucose 115 H Calcium 8.0 L Phosphorus 5.5 H Magnesium 2.2 Albumin 2.3 L Urine Color YELLOW Urine Appearance CLOUDY Urine pH 5.0 Ur Specific Sebastian 1.014 Urine Protein NEGATIVE Urine Glucose (UA) NEGATIVE Urine Ketones NEGATIVE Urine Blood LARGE H Urine Nitrite NEGATIVE Ur Leukocyte Esterase SMALL H Urine WBC (Auto) 5 Urine RBC (Auto) 4 07/28/19 17:06 Blood Blood Culture - Final NO GROWTH IN 5 DAYS 07/28/19 16:02 Blood Blood Culture - Final NO GROWTH IN 5 DAYS Impressions: Venous Doppler Study 07/28/19 15:29 IMPRESSION: 1. Limited evaluation due to edema and swelling. See above comment. 2. NO EVIDENCE OF DVT OR SVT IN THE RIGHT LEG. Foot X-Ray 07/28/19 17:51 IMPRESSION: 1. No significant interval changes since the prior examination dated 07/25/2019. No radiographic evidence of osteomyelitis. 2. Soft tissue injury/defect again identified along the lateral aspect of the fifth metatarsophalangeal joint, consistent with the patient's known ulcer. 3. Soft tissue swelling involving the right foot. Abdomen Ultrasound 07/29/19 00:00 IMPRESSION: Splenomegaly. No other significant findings. Assessment and Plan - Diagnosis (1) Diabetic foot ulcer Qualifiers: Diabetic foot ulcer location: midfoot Diabetes mellitus type: type 1 Laterality: right Non-pressure ulcer stage: with other severity Qualified Code(s): E10.621 - Type 1 diabetes mellitus with foot ulcer; L97.418 - 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 08/02/2019 Enterococcus and methicillin-resistant staph aureus present. Currently on vancomycin however levels are supratherapeutic. This is likely causing her acute kidney injury. Await infectious disease input. Consider changing to Zyvox 08/03/2019 Infectious diseases recommends 6 more weeks of IV antibiotics with daptomycin and meropenem. The patient was not in favor of staying for 6 additional weeks. She has what she can with a home to take oral medications. I explained that it was based on the severity of infection and the availability of strong antibiotics in intravenous form only. She will think about it tonight. Try to explain that the healing of her foot present state and related sepsis develops it could be a life-threatening event. (2) TONYA (acute kidney injury) Is this a current diagnosis for this admission?: Yes Plan: Iatrogenic DC Vancomycin Monitor kidney function 08/02/2019 Continue to monitor. Awaiting infectious disease recommendations to consider discontinuing vancomycin. 08/03/2019 IV fluids were increased. The patient was feeling better with that. Unfortunately her creatinine is even higher today than anticipated will begin to follow tomorrow. If it does not begin to improve then consider nephrology consult (3) Alcohol use disorder Is this a current diagnosis for this admission?: Yes Plan: Patient will be monitored for alcohol withdrawal. She drinks every day although she was unable to quantify for me 08/02/2019 Continue to monitor for any signs of withdrawal and treat accordingly (4) Cellulitis of right lower extremity Is this a current diagnosis for this admission?: Yes Plan: She has surrounding cellulitis as well as a diabetic foot ulcer. She apparently had a recent debridement done as outpatient. 07/28 Patient declines amputation as per Surgery Will continue with IV antibiotics, follow up on cultures 08/02/2019 Antibiotics as above. 08/03/2019 Please see infectious disease note. Adding 6 weeks of daptomycin and meropenem would be extremely frustrating for the patient as she had expressed. (5) Anemia Qualifiers: Anemia type: unspecified type Qualified Code(s): D64.9 - Anemia, unspeci fied Is this a current diagnosis for this admission?: Yes Plan: 08/03/2019 The patient's anemia work-up did not reveal iron deficiency nor did it reveal decreased folic acid B12 levels. It is unclear what the cause of the anemia is. The surgery was not big enough to cause acute blood loss anemia postoperatively. We will continue to monitor. Next the hemoglobin continues to decline the patient may warrant transfusion. (6) Depression Qualifiers: Depression Type: reactive depression Qualified Code(s): F32.9 - Major depressive disorder, single episode, unspecified Is this a current diagnosis for this admission?: Yes Plan: 08/03/2019 The patient is clearly frustrated with the hospital course. I believe the r elates more to the entirety of the treatment plan for her foot. Amputation was offered. The patient declined at the time. She wants to try and heal the foot. She does realize that there is distance good a chance that she may need the amputation. I did start her on sertraline and hopefully this will help. - Plan Summary Summary: Wound culture is currently yielding group D enterococcus as well as MRSA. As per surgery wound is clean and to need to continue with twice daily dressing changes once discharge. Home health has been ordered. She will follow-up with surgical clinic in 7 to 10 days. Patient however is still on IV antibiotics with acute renal failure. Her creatinine is 2.5 and was 0.48 on admission just 4 days ago. Vancomycin level is 34.1 she would benefit from some IV fluid hydration. Her creatinine will hopefully trend downwards
[2019-08-03] MEDS: HYDROMORPHONE HCL INJ/PF 2 MG/ML AMPULE IV PRN (20:55)
[2019-08-03] MEDS: MELATONIN 5 MG TABLET PO SCH (21:31)
[2019-08-04] MEDS: OXYCODONE-ACETAMINOPHEN 5-325 MG TABLET PO PRN ×3 (01:02→18:18)
--- NOTE | 2019-08-04 01:22 | RADIOLOGY REPORT (SQ) ---
INDICATION: fall. Pain post fall COMPARISON: January 04, 2017 CORRELATION: None TECHNIQUE: Noncontrast spiral axial CT images were obtained from the skull base to vertex. This exam was performed according to our departmental dose-optimization program, which includes automated exposure control, adjustment of the mA and/or kV according to patient size and/or use of iterative reconstruction techniques. FINDINGS: There is no evidence of acute intracranial hemorrhage, midline shift, mass effect or mass lesion. Roman-white differentiation is normal. There is no evidence of acute large territory infarct. Ventricles and extracerebral spaces are within normal limits, for age. The visualized paranasal sinuses are grossly clear. The orbits and eyeballs are unremarkable. The mastoid air cells are clear. Skull base and calvarium appear intact. IMPRESSION: No acute intracranial process is identified. No adverse change
[2019-08-04] MEDS: AMOXICILLIN TR/POT CLAVULANATE 500-125 MG TAB PO SCH ×3 (06:09→21:58)
[2019-08-04] MEDS: PANTOPRAZOLE SODIUM 20 MG TABLET.DR PO SCH (06:10)
[2019-08-04] MEDS: LORAZEPAM 1 MG TABLET PO PRN ×2 (06:24→09:51)
[2019-08-04 06:53] LABS: ABSOLUTE EOSINOPHILS # (AUTO) 0.2 10^3/uL (0.0-0.6); ABSOLUTE MONOCYTES (AUTO) 0.8 10^3/uL (0.1-1.4); ABSOLUTE NEUT (AUTO) 7.3 10^3/uL (1.7-8.2); BASOPHILS % (AUTO) 0.5 % (0-2); EOSINOPHILS % (AUTO) 2.1 % (0-6); LYMPHOCYTES % (AUTO) 11.2 % (13-45); MEAN CORPUSCULAR HEMOGLOBIN 35.8 pg (27.0-33.4); MEAN CORPUSCULAR HGB CONC 34.3 g/dL (32.0-36.0); MEAN CORPUSCULAR VOLUME 104 fl (80-97); MONOCYTES % (AUTO) 8.7 % (3-13); PLATELET COUNT 103 10^3/uL (150-450); RED BLOOD COUNT 2.21 10^6/uL (3.72-5.28); RED CELL DISTRIBUTION WIDTH 16.2 % (11.5-14.0); SEGMENTED NEUTROPHILS % (AUTO) 77.5 % (42-78); TOTAL CELLS COUNTED % (AUTO) 100 %; WHITE BLOOD COUNT 9.4 10^3/uL (4.0-10.5)
[2019-08-04 06:55] LABS: HEMOGLOBIN 7.9 g/dL (12.0-15.5)
[2019-08-04 07:20] LABS: ALBUMIN 2.4 g/dL (3.5-5.0); ANION GAP 9 (5-19); BLOOD UREA NITROGEN 19 mg/dL (7-20); CALCIUM 8.2 mg/dL (8.4-10.2); CARBON DIOXIDE 19 mmol/L (22-30); CHLORIDE 105 mmol/L (98-107); GLUCOSE 106 mg/dL (75-110); PHOSPHORUS 5.5 mg/dL (2.5-4.5); POTASSIUM 3.9 mmol/L (3.6-5.0)
[2019-08-04] MEDS: MAGNESIUM OXIDE 400 MG TABLET PO SCH ×2 (09:51→18:18)
[2019-08-04] MEDS: SERTRALINE HCL 50 MG TABLET PO SCH (09:51)
[2019-08-04] MEDS: DOCUSATE SODIUM 100 MG CAPSULE PO SCH (09:51)
[2019-08-04] MEDS: ENOXAPARIN SODIUM INJ 30 MG/0.3 ML DISP.SYRIN SUBCUT SCH (11:26)
[2019-08-04] MEDS ORDERED: LORAZEPAM 1 MG TABLET PO PRN (13:41)
--- NOTE | 2019-08-04 19:05 | PDOC PROGRESS REPORT ---
Subjective Progress Note for:: 08/04/19 Subjective:: She fell overnight but her head CT is negative. Her vital signs have been stable. She is not suffered any changes in her neurological status today. She is not complaining of any pain. Her chief concern is being able to get out of the hospital. Reason For Visit: DIABETIC FOOT INFECTION Physical Exam Vital Signs: Temp Pulse Resp BP Pulse Ox 98.2 F 84 16 131/68 H 95 08/04/19 15:30 08/04/19 15:30 08/04/19 15:30 08/04/19 15:30 08/04/19 15:30 Intake & Output 08/03/19 08/04/19 08/05/19 06:59 06:59 06:59 Intake Total 3250 2600 900 Output Total 200 874 200 Balance 3050 1726 700 Weight 94.5 kg 95.2 kg General appearance: PRESENT: cooperative, mild distress, well-developed Teeth exam: PRESENT: poor dentation Respiratory exam: PRESENT: clear to auscultation kristina, symmetrical, unlabored. ABSENT: prolonged expiratory phas, rales, rhonchi, tachypnea, wheezes Cardiovascular exam: PRESENT: RRR, +S1, +S2. ABSENT: diastolic murmur, irregular rhythm, systolic murmur GI/Abdominal exam: PRESENT: normal bowel sounds, soft. ABSENT: distended, guarding, tenderness Gentrourinary exam: ABSENT: indwelling catheter Extremities exam: PRESENT: pedal edema Neurological exam: PRESENT: alert, awake, oriented to person, oriented to place, oriented to time, oriented to situation, CN II-XII grossly intact Psychiatric exam: PRESENT: depressed Results Laboratory Results: 08/04/19 06:16 08/04/19 06:16 08/04/19 08/04/19 06:16 06:16 WBC 9.4 RBC 2.21 L Hgb 7.9 L Hct 23.0 L MCV 104 H MCH 35.8 H MCHC 34.3 RDW 16.2 H Plt Count 103 L Seg Neutrophils % 77.5 Sodium 133.2 L Potassium 3.9 Chloride 105 Carbon Dioxide 19 L Anion Gap 9 BUN 19 Creatinine 3.19 H Est GFR ( Amer) 19 L Glucose 106 Calcium 8.2 L Phosphorus 5.5 H Magnesium 2.3 Albumin 2.4 L 08/03/19 02:38 Clean Catch Midstream Urine Culture - Final C.albicans/C.dubliniensis Mixed Urogenital Carmela Impressions: Venous Doppler Study 07/28/19 15:29 IMPRESSION: 1. Limited evaluation due to edema and swelling. See above comment. 2. NO EVIDENCE OF DVT OR SVT IN THE RIGHT LEG. Foot X-Ray 07/28/19 17:51 IMPRESSION: 1. No significant interval changes since the prior examination dated 07/25/2019. No radiographic evidence of osteomyelitis. 2. Soft tissue injury/defect again identified along the lateral aspect of the fifth metatarsophalangeal joint, consistent with the patient's known ulcer. 3. Soft tissue swelling involving the right foot. Abdomen Ultrasound 07/29/19 00:00 IMPRESSION: Splenomegaly. No other significant findings. Head CT 08/04/19 00:00 IMPRESSION: No acute intracranial process is identified. No adverse change Assessment and Plan - Diagnosis (1) TONYA (acute kidney injury) Is this a current diagnosis for this admission?: Yes Plan: Creatinine has plateaued, antibiotics have been adjusted to daptomycin and meropenem. Monitoring creatinine, electrolytes, and urine output. 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 Infectious disease has recommended treating this like it is osteomyelitis. 6 weeks of antibiotics have been recommended. Because of the renal failure, daptomycin and meropenem have been recommended. We do not think the patient is going to be able to get this done, because she does not have the insurance to go to a facility and do this, and she does not have anyone at home that can reliably give her IV antibiotics. We are considering options that she will be able to do at home that would provide her the best coverage that we can give her if she can do IV antibiotics at home. (4) Depression Qualifiers: Depression Type: reactive depression Qualified Code(s): F32.9 - Major depressive disorder, single episode, unspecified Is this a current diagnosis for this admission?: Yes Plan: She is having a difficult time with all the different facets of this hospitalization. She was started on Zoloft. (5) Diabetic foot ulcer Qualifiers: Diabetic foot ulcer location: midfoot Diabetes mellitus type: type 1 Laterality: right Non-pressure ulcer stage: with other severity Qualified Code(s): E10.621 - Type 1 diabetes mellitus with foot ulcer; L97.418 - Non- pressure chronic ulcer of right heel and midfoot with other specified severity Is this a current diagnosis for this admission?: Yes Plan: Attempting to treat with IV antibiotics for osteomyelitis. Amputation of the foot is a possibility, but the patient wanted to try something besides that. (6) Type 1 diabetes mellitus Qualifiers: Diabetes mellitus complication status: with circulatory complication Diabetes mellitus complication detail: with other circulatory complications Qualified Code(s): E10.59 - Type 1 diabetes mellitus with other circulatory complications Is this a current diagnosis for this admission?: Yes Plan: Blood sugars have been well controlled (7) Hyponatremia Is this a current diagnosis for this admission?: Yes Plan: Nearly normal now (8) Sepsis Qualifiers: Sepsis type: methicillin resistant Staphylococcus aureus Sepsis acute organ dysfunction status: with acute organ dysfunction Severe sepsis acute organ dysfunction type: acute renal failure Acute renal failure type: with acute tubular necrosis Severe sepsis shock status: without septic shock Qualified Code(s): A41.02 - Sepsis due to Methicillin resistant Staphylococcus aureus; R65.20 - Severe sepsis without septic shock; N17.0 - Acute kidney failure with tubular necrosis Is this a current diagnosis for this admission?: Yes Plan: Continue with antibiotics and supportive care as noted above (9) Anemia Qualifiers: Anemia type: other cause Other causes of anemia: chronic disease, other Qualified Code(s): D63.8 - Anemia in other chronic diseases classified elsewhere Is this a current diagnosis for this admission?: Yes Plan: The patient's anemia work-up did not reveal iron deficiency nor did it reveal decreased folic acid B12 levels. It is unclear what the cause of the anemia is. The surgery was not big enough to cause acute blood loss anemia postoperatively. It may be due to her history of alcohol abuse. We will continue to monitor. Next the hemoglobin continues to decline the patient may warrant transfusion. - Plan Summary Summary: Wound culture is currently yielding group D enterococcus as well as MRSA. As per surgery wound is clean and to need to continue with twice daily dressing changes once discharge. Home health has been ordered. She will follow-up with surgical clinic in 7 to 10 days. Patient however is still on IV antibiotics with acute renal failure. Her creatinine is 2.5 and was 0.48 on admission just 4 days ago. Vancomycin level is 34.1 she would benefit from some IV fluid hydration. Her creatinine will hopefully trend downwards - Time Time Spent with patient: 25-34 minutes
[2019-08-04] MEDS: MELATONIN 5 MG TABLET PO SCH (21:58)
[2019-08-04] MEDS: HYDROMORPHONE HCL INJ/PF 2 MG/ML AMPULE IV PRN (22:12)
[2019-08-05] MEDS: OXYCODONE-ACETAMINOPHEN 5-325 MG TABLET PO PRN ×4 (03:21→20:11)
[2019-08-05] MEDS: AMOXICILLIN TR/POT CLAVULANATE 500-125 MG TAB PO SCH ×3 (06:23→22:19)
[2019-08-05] MEDS: PANTOPRAZOLE SODIUM 20 MG TABLET.DR PO SCH (06:23)
[2019-08-05] MEDS: ENOXAPARIN SODIUM INJ 30 MG/0.3 ML DISP.SYRIN SUBCUT SCH (10:02)
[2019-08-05] MEDS: DOCUSATE SODIUM 100 MG CAPSULE PO SCH (10:08)
[2019-08-05] MEDS: SERTRALINE HCL 50 MG TABLET PO SCH (10:08)
[2019-08-05] MEDS: MAGNESIUM OXIDE 400 MG TABLET PO SCH ×2 (10:08→19:30)
[2019-08-05 10:28] LABS: ANION GAP 7 (5-19); BLOOD UREA NITROGEN 19 mg/dL (7-20); CALCIUM 8.3 mg/dL (8.4-10.2); CARBON DIOXIDE 22 mmol/L (22-30); CHLORIDE 104 mmol/L (98-107); GLUCOSE 134 mg/dL (75-110); POTASSIUM 3.9 mmol/L (3.6-5.0)
[2019-08-05 10:31] LABS: VANCOMYCIN,TROUGH 14.1 ug/mL (5.0-20.0)
[2019-08-05] MEDS: BUSPIRONE HCL 10 MG TABLET PO SCH ×2 (14:33→22:19)
[2019-08-05] MEDS ORDERED: ESCITALOPRAM OXALATE 10 MG TABLET PO ONE ×2 (15:00→20:00)
--- NOTE | 2019-08-05 15:12 | RADIOLOGY REPORT (SQ) ---
EXAM DESCRIPTION: CT LUMBAR SPINE WITHOUT IMAGES COMPLETED DATE/TIME: 08/05/2019 2:57 pm REASON FOR STUDY: low back pain s/p fall COMPARISON: 03/23/2027 TECHNIQUE: Axial images acquired through the lumbar spine without intravenous contrast. Images revi ewed with lung, soft tissue and bone windows. Reconstructed coronal and sagittal MPR images reviewed . All images stored on PACS. All CT scanners at this facility use dose modulation, iterative reconstruction, and/or weight based d osing when appropriate to reduce radiation dose to as low as reasonably achievable (ALARA). [facility]: Dose Right [facility]: CareDose [facility]: Dose Right [facility]: Teradose 4D [facility]: Smart [employer] RADIATION DOSE: CT Rad equipment meets quality standard of care and radiation dose reduction techniq ues were employed. CTDIvol: 38.8 mGy. DLP: 1568 mGy-cm. mGy. LIMITATIONS: None. FINDINGS: SEGMENTATION: Normal. No transitional anatomy. ALIGNMENT: Normal. VERTEBRAL BODIES: There is a nondisplaced fracture involving the anterior aspect of the L1 superior e ndplate ; the posterior endplate remains intact. This results in approximately 1 mm loss of anterior vertebral body height. Vertebral body heights and alignment are otherwise normal. DISCS: Multilevel spondylotic changes are present with small marginal osteophytes at all levels and v acuum disc phenomenon involving the L2 through the S1 levels. Uebu-cx-njsrdenj loss of intervening i ntervertebral disc height noted at all levels. PEDICLES, TRANSVERSE PROCESSES: No fractures. No dislocation. No acute findings. FACETS, POSTERIOR ELEMENTS: Moderate facet arthropathy is seen at all levels. No fractures. Normal alignment. HARDWARE: None in the spine. VISUALIZED RIBS: No fractures. SOFT TISSUES: No significant or acute finding in adjacent soft tissues. OTHER: Small right greater than left pleural effusions. IMPRESSION: Nondisplaced L1 superior endplate fracture resulting in approximately 1 mm loss of anter ior vertebral body height. Background of multilevel spondylotic changes. TECHNICAL DOCUMENTATION: JOB ID: [id number] Quality ID # [id number]: Final reports with documentation of one or more dose reduction techniques (e.g., Au tomated exposure control, adjustment of the mA and/or kV according to patient size, use of iterative reconstruction technique) 2010 [employer]- All Rights Reserved Reading location - IP/workstation name: [email or web address]
--- NOTE | 2019-08-05 15:16 | RADIOLOGY REPORT (SQ) ---
EXAM DESCRIPTION: CT PELVIS WITHOUT IMAGES COMPLETED DATE/TIME: 08/05/2019 2:57 pm REASON FOR STUDY: low back pain s/p fall COMPARISON: 03/23/2019 TECHNIQUE: CT scan of the pelvis performed without intravenous or oral contrast. Images reviewed wi th soft tissue and bone windows. Reconstructed coronal and sagittal MPR images reviewed. All images stored on PACS. All CT scanners at this facility use dose modulation, iterative reconstruction, and/or weight based d osing when appropriate to reduce radiation dose to as low as reasonably achievable (ALARA). [facility]: Dose Right [facility]: CareDose [facility]: Dose Right [facility]: Teradose 4D [facility]: Smart [employer] RADIATION DOSE: CT Rad equipment meets quality standard of care and radiation dose reduction techniq ues were employed. CTDIvol: 40.9 mGy. DLP: 1384 mGy-cm. mGy. LIMITATIONS: None. FINDINGS: PELVIC BONES: No acute fracture. No worrisome bone lesions. Degenerative changes are seen to the symphysis and sacroiliac joints. VISUALIZED SPINE: No acute findings. HIP(S): No acute fracture or dislocation. No worrisome bone lesions. Mild degenerative changes are n oted. PELVIC SOFT TISSUES: Surgical changes are seen of the sigmoid colon. An intrauterine device is demon strated. EXTRAPELVIC SOFT TISSUES: No significant findings. OTHER: No other significant finding. IMPRESSION: No evidence of acute osseous injury. Mild, diffuse degenerative changes. TECHNICAL DOCUMENTATION: JOB ID: [id number] Quality ID # [id number]: Final reports with documentation of one or more dose reduction techniques (e.g., Au tomated exposure control, adjustment of the mA and/or kV according to patient size, use of iterative reconstruction technique) 2010 [employer]- All Rights Reserved Reading location - IP/workstation name: [email or web address]
--- NOTE | 2019-08-05 16:44 | PDOC PROGRESS REPORT ---
Subjective Progress Note for:: 08/05/19 Subjective:: No adverse events overnight. She was not complaining of any back pain yesterday, but she was today. She was able to stand up under her own power and show me where it was hurting, and it was mostly her lower back over her pelvis. Films were obtained of the lumbar spine and pelvis and showed a very small L1 compression fracture with a 1 mm loss of vertebral body height, which is interesting because this is not the area of that she was complaining of pain. There were no other fractures or new findings noted. Reason For Visit: DIABETIC FOOT INFECTION Physical Exam Vital Signs: Temp Pulse Resp BP Pulse Ox 98.3 F 78 20 96/54 L 96 08/05/19 15:30 08/05/19 15:30 08/05/19 15:30 08/05/19 15:30 08/05/19 15:30 Intake & Output 08/04/19 08/05/19 08/06/19 06:59 06:59 06:59 Intake Total 2600 2030 1440 Output Total 874 200 Balance 1726 1830 1440 Weight 95.2 kg 95.2 kg 95.2 kg General appearance: PRESENT: cooperative, mild distress, well-developed Teeth exam: PRESENT: poor dentation Respiratory exam: PRESENT: clear to auscultation kristina, symmetrical, unlabored. ABSENT: prolonged expiratory phas, rales, rhonchi, tachypnea, wheezes Cardiovascular exam: PRESENT: RRR, +S1, +S2. ABSENT: diastolic murmur, irregular rhythm, systolic murmur GI/Abdominal exam: PRESENT: normal bowel sounds, soft. ABSENT: distended, guarding, tenderness Gentrourinary exam: ABSENT: indwelling catheter Extremities exam: PRESENT: pedal edema Neurological exam: PRESENT: alert, awake, oriented to person, oriented to place, oriented to time, oriented to situation, CN II-XII grossly intact Psychiatric exam: PRESENT: depressed Results Laboratory Results: 08/04/19 06:16 08/05/19 09:49 08/05/19 09:49 Sodium 132.5 L Potassium 3.9 Chloride 104 Carbon Dioxide 22 Anion Gap 7 BUN 19 Creatinine 2.90 H Est GFR ( Amer) 21 L Glucose 134 H Calcium 8.3 L 08/03/19 02:38 Clean Catch Midstream Urine Culture - Final C.albicans/C.dubliniensis Mixed Urogenital Carmela Impressions: Venous Doppler Study 07/28/19 15:29 IMPRESSION: 1. Limited evaluation due to edema and swelling. See above comment. 2. NO EVIDENCE OF DVT OR SVT IN THE RIGHT LEG. Foot X-Ray 07/28/19 17:51 IMPRESSION: 1. No significant interval changes since the prior examination dated 07/25/2019. No radiographic evidence of osteomyelitis. 2. Soft tissue injury/defect again identified along the lateral aspect of the fifth metatarsophalangeal joint, consistent with the patient's known ulcer. 3. Soft tissue swelling involving the right foot. Abdomen Ultrasound 07/29/19 00:00 IMPRESSION: Splenomegaly. No other significant findings. Head CT 08/04/19 00:00 IMPRESSION: No acute intracranial process is identified. No adverse change Lumbar Spine CT 08/05/19 00:00 IMPRESSION: Nondisplaced L1 superior endplate fracture resulting in approximat елена 1 mm loss of anterior vertebral body height. Background of multilevel spondylotic changes. Pelvis CT 08/05/19 00:00 IMPRESSION: No evidence of acute osseous injury. Mild, diffuse degenerative changes. Assessment and Plan - Diagnosis (1) TNOYA (acute kidney injury) Is this a current diagnosis for this admission?: Yes Plan: Creatinine has plateaued and started to trend down. We will continue to monitor her urine output and her creatinine. We stopped her fluids because her urine output is good she looks like she is getting a little swollen. 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 Infectious disease has recommended treating this like it is osteomyelitis. 6 weeks of antibiotics have been recommended. Because of the renal failure, daptomycin and meropenem have been recommended. We do not think the patient is going to be able to get this done, because she does not have the insurance to go to a facility and do this, and she does not have anyone at home that can reliably give her IV antibiotics. We are considering options that she will be able to do at home that would provide her the best coverage that we can give her if she cannot do IV antibiotics at home. Wanting to see if her creatinine trends down more before we make a definite decision. (4) Depression Qualifiers: Depression Type: reactive depression Qualified Code(s): F32.9 - Major depressive disorder, single episode, unspecified Is this a current diagnosis for this admission?: Yes Plan: She is having a difficult time with all the different facets of this hospitalization. She was started on Zoloft. She said she takes Lexapro and BuSpar at home and so I discontinue the Zoloft and resumed her home medications. (5) Diabetic foot ulcer Qualifiers: Diabetic foot ulcer location: midfoot Diabetes mellitus type: type 1 Laterality: right Non-pressure ulcer stage: with other severity Qualified Code(s): E10.621 - Type 1 diabetes mellitus with foot ulcer; L97.418 - Non- pressure chronic ulcer of right heel and midfoot with other specified severity Is this a current diagnosis for this admission?: Yes Plan: Attempting to treat with IV antibiotics for osteomyelitis. Amputation of the foot is a possibility, but the patient wanted to try something besides that. (6) Type 1 diabetes mellitus Qualifiers: Diabetes mellitus complication status: with circulatory complication Diabetes mellitus complication detail: with other circulatory complications Qualified Code(s): E10.59 - Type 1 diabetes mellitus with other circulatory complications Is this a current diagnosis for this admission?: Yes Plan: Blood sugars have been well controlled (7) Hyponatremia Is this a current diagnosis for this admission?: Yes Plan: Nearly normal now (8) Sepsis Qualifiers: Sepsis type: methicillin resistant Staphylococcus aureus Sepsis acute organ dysfunction status: with acute organ dysfunction Severe sepsis acute organ dysfunction type: acute renal failure Acute renal failure type: with acute tubular necrosis Severe sepsis shock status: without septic shock Qualified Code(s): A41.02 - Sepsis due to Methicillin resistant Staphylococcus aureus; R65.20 - Severe sepsis without septic shock; N17.0 - Acute kidney failure with tubular necrosis Is this a current diagnosis for this admission?: Yes Plan: Continue with antibiotics and supportive care as noted above (9) Anemia Qualifiers: Anemia type: other cause Other causes of anemia: chronic disease, other Qualified Code(s): D63.8 - Anemia in other chronic diseases classified elsewhere Is this a current diagnosis for this admission?: Yes Plan: The patient's anemia work-up did not reveal iron deficiency nor did it reveal decreased folic acid B12 levels. It is unclear what the cause of the anemia is. The surgery was not big enough to cause acute blood loss anemia postoperatively. It may be due to her history of alcohol abuse. We will continue to monitor. If the hemoglobin continues to decline the patient may warrant transfusion. (10) Compression fracture of L1 lumbar vertebra Qualifiers: Encounter type: initial encounter Qualified Code(s): S32.010A - Wedge compression fracture of first lumbar vertebra, initial encounter for closed fracture Is this a current diagnosis for this admission?: Yes Plan: There is a very mild deformity. She is already on a substantial dose of Percocet. I have ordered a Lidoderm patch and a physical therapy consult. - Plan Summary Summary: Wound culture is currently yielding group D enterococcus as well as MRSA. As per surgery wound is clean and to need to continue with twice daily dressing changes once discharge. Home health has been ordered. She will follow-up with surgical clinic in 7 to 10 days. Patient however is still on IV antibiotics w ith acute renal failure. Her creatinine is 2.5 and was 0.48 on admission just 4 days ago. Vancomycin level is 34.1 she would benefit from some IV fluid hydration. Her creatinine will hopefully trend downwards - Time Time Spent with patient: 25-34 minutes
[2019-08-05] MEDS ORDERED: LIDOCAINE 5% (700 MG) TRANSDERMAL ADH..PATCH TP ONE (17:30)
--- NOTE | 2019-08-05 17:36 | Progress Note ---
Provider Note Provider Note: [facility] Telephone Advice Follow Up Chart reviewed. Patient is a 49-year-old woman with long history of Diabetes M ellitus, with multiple complications who has been dealing with a right foot infection for some time now. She was seeing a lens generating machine tender and visiting a wound clinic. She had partial debridement of the infection in her foot but she started having worsening pain, redness and swelling. She was recommended to take levofloxacin and cephalexin. Her symptoms did not improve and she was admitted on 07/27. She was evaluated by surgery who performed I&D with amputation of 5th toe. Initial wound cultures were positive for MRSA and Enterococcus faecalis, but she was already on cephalexin and levofloxacin. OR culture has been negative. She was started on vancomycin and zosyn. Her creatinine significantly worsened and vancomycin trough was elevated. Vancomycin has been held. Renal function slightly improved and vancomycin trough now 14. She fell, but CT was negative for acute head findings, but she does have a nondisplaced L1 superior endplate fracture resulting in approximately 1 mm loss of anterior vertebral body height. Patient wants to leave the hospital and ID was asked to see if there are any oral alternatives for treatment. Allergies: fire ant Allergy (Severe, Verified 08/01/19 13:19) Anaphylaxis bee venom protein (honey bee) Allergy (Verified 08/01/19 13:17) morphine [Morphine] Allergy (Verified 03/12/19 05:57) nitrofurantoin macrocrystalline [From Macrobid] Allergy (Verified 03/12/19 05:57) Sulfa (Sulfonamide Antibiotics) Allergy (Verified 03/12/19 05:57) sulfamethoxazole [From Bactrim] Allergy (Verified 03/12/19 05:57) trimethoprim [From Bactrim] Allergy (Verified 03/12/19 05:57) Vital Signs: Temp Pulse Resp BP Pulse Ox 98.3 F 78 20 96/54 L 96 08/05/19 15:30 08/05/19 15:30 08/05/19 15:30 08/05/19 15:30 08/05/19 15:30 Intake & Output 08/04/19 08/05/19 08/06/19 06:59 06:59 06:59 Intake Total 2600 2030 1440 Output Total 874 200 Balance 1726 1830 1440 Weight 95.2 kg 95.2 kg 95.2 kg Weight/Height Weight 95.2 kg Height 5 ft 5 in Laboratories: 08/04/19 06:16 08/05/19 09:49 MCV 104 fl (80-97) H 08/04/19 06:16 MCH 35.8 pg (27.0-33.4) H 08/04/19 06:16 MCHC 34.3 g/dL (32.0-36.0) 08/04/19 06:16 RDW 16.2 % (11.5-14.0) H 08/04/19 06:16 Seg Neutrophils % 77.5 % (42-78) 08/04/19 06:16 Retic Count (auto) 2.57 % (0.66-2.85) 07/29/19 05:49 Chloride 104 mmol/L (98-107) 08/05/19 09:49 Carbon Dioxide 22 mmol/L (22-30) 08/05/19 09:49 Anion Gap 7 (5-19) 08/05/19 09:49 Est GFR ( Amer) 21 (>60) L 08/05/19 09:49 Glucose 134 mg/dL (75-110) H 08/05/19 09:49 Lactic Acid 1.4 mmol/L (0.7-2.1) 07/29/19 05:49 Calcium 8.3 mg/dL (8.4-10.2) L 08/05/19 09:49 Phosphorus 5.5 mg/dL (2.5-4.5) H 08/04/19 06:16 Magnesium 2.3 mg/dL (1.6-2.3) 08/04/19 06:16 Iron 76.2 ug/dL (37-170) 07/29/19 05:49 TIBC 313 ug/dL (250-450) 07/29/19 05:49 % Saturation 24 % 07/29/19 05:49 Transferrin 213.58 mg/dL (206.00-381.00) 07/29/19 05:49 Ferritin 49.90 ng/mL (6.2-137.0) 07/29/19 05:49 Total Bilirubin 0.8 mg/dL (0.2-1.3) 07/28/19 16:02 AST 47 U/L (14-36) H 07/28/19 16:02 Alkaline Phosphatase 141 U/L (38-126) H 07/28/19 16:02 Total Protein 7.5 g/dL (6.3-8.2) 07/28/19 16:02 Albumin 2.4 g/dL (3.5-5.0) L 08/04/19 06:16 Vitamin B12 > 1000.0 pg/mL (239-931) H 07/29/19 05:49 Folate 10.10 ng/mL (>2.76) 07/29/19 05:49 Urine Color YELLOW 08/03/19 02:38 Urine Appearance CLOUDY 08/03/19 02:38 Urine pH 5.0 (5.0-9.0) 08/03/19 02:38 Ur Specific [place] 1.014 08/03/19 02:38 Urine Protein NEGATIVE mg/dL (NEGATIVE) 08/03/19 02:38 Urine Glucose (UA) NEGATIVE mg/dL (NEGATIVE) 08/03/19 02:38 Urine Ketones NEGATIVE mg/dL (NEGATIVE) 08/03/19 02:38 Urine Blood LARGE (NEGATIVE) H 08/03/19 02:38 Urine Nitrite NEGATIVE (NEGATIVE) 08/03/19 02:38 Ur Leukocyte Esterase SMALL (NEGATIVE) H 08/03/19 02:38 Urine WBC (Auto) 5 /HPF 08/03/19 02:38 Urine RBC (Auto) 4 /HPF 08/03/19 02:38 08/03/19 02:38 Clean Catch Midstream Urine Culture - Final C.albicans/C.dubliniensis Mixed Urogenital Carmela Microbiology: Blood culture 07/28/19 Negative Wound culture: 07/27 MRSA, Enterococcus faecalis 07/28 NGTD Radiology: Venous Doppler Study 07/28/19 15:29 IMPRESSION: 1. Limited evaluation due to edema and swelling. See above comment. 2. NO EVIDENCE OF DVT OR SVT IN THE RIGHT LEG. Foot X-Ray 07/28/19 17:51 IMPRESSION: 1. No significant interval changes since the prior examination dated 07/25/2019. No radiographic evidence of osteomyelitis. 2. Soft tissue injury/defect again identified along the lateral aspect of the fifth metatarsophalangeal joint, consistent with the patient's known ulcer. 3. Soft tissue swelling involving the right foot. Abdomen Ultrasound 07/29/19 00:00 IMPRESSION: Splenomegaly. No other significant findings. Head CT 08/04/19 00:00 IMPRESSION: No acute intracranial process is identified. No adverse change Lumbar Spine CT 08/05/19 00:00 IMPRESSION: Nondisplaced L1 superior endplate fracture resulting in approximately 1 mm loss of anterior vertebral body height. Background of multilevel spondylotic changes. Pelvis CT 08/05/19 00:00 IMPRESSION: No evidence of acute osseous injury. Mild, diffuse degenerative changes. Assessment and Recommendations: Patient evaluated for diabetic foot infection s/p amputation of the 5th toe. Initial cultures positive for MRSA and Enterococcus after antibiotics administration but OR cultures from 07/28 are negative. The initial recommendation was to complete 6 weeks for residual osteomyelitis in the setting of MRSA and Enterococcus faecalis infection as pathology report from proximal margins was not available and there was concern for residual infection. She had TONYA with vancomycin and she can't afford daptomycin. Unfortunately MRSA was resistant to all oral options including clindamycin and tetracyclines. She is allergic to sulfas and she is on SSRIs for which she can't take linezolid. Delafloxacin is an oral option that will cover MRSA, Pseudomonas and other GNRs and some anaerobes, but this may be cost prohibitive. Another option would be to try to arrange with [facility] in [place] to get Dalbavancin as outpatient which is a long acting antibiotic once a week that she would have to take together with levofloxacin. Unfortunately there are no good treatment alternatives in this case. If the surgeon feels confident that all infection has been eradicated with the surgery and good source control has been achieved, we can try to stop antibiotics and observe. Otherwise, she will need treatment for residual OM. Please call if questions. Rosalee Wilder MD [facility] [phone]
[2019-08-05] MEDS ORDERED: VANCOMYCIN HCL 1,500 MG in DEXTROSE 5%-WATER 250 ML IV SCH (18:00)
[2019-08-05] MEDS ORDERED: BUSPIRONE HCL 10 MG TABLET PO SCH (22:00)
[2019-08-05] MEDS: MELATONIN 5 MG TABLET PO SCH (22:19)
[2019-08-06] MEDS: OXYCODONE-ACETAMINOPHEN 5-325 MG TABLET PO PRN ×5 (00:14→21:07)
[2019-08-06] MEDS: PANTOPRAZOLE SODIUM 20 MG TABLET.DR PO SCH (05:25)
[2019-08-06] MEDS: BUSPIRONE HCL 10 MG TABLET PO SCH ×3 (05:25→21:07)
[2019-08-06] MEDS: AMOXICILLIN TR/POT CLAVULANATE 500-125 MG TAB PO SCH ×3 (05:25→21:07)
[2019-08-06 11:24] LABS: HEMATOCRIT 23.5 % (36.0-47.0); MEAN CORPUSCULAR HEMOGLOBIN 35.1 pg (27.0-33.4); MEAN CORPUSCULAR HGB CONC 33.5 g/dL (32.0-36.0); MEAN CORPUSCULAR VOLUME 105 fl (80-97); PLATELET COUNT 113 10^3/uL (150-450); RED BLOOD COUNT 2.24 10^6/uL (3.72-5.28); RED CELL DISTRIBUTION WIDTH 16.3 % (11.5-14.0); WHITE BLOOD COUNT 9.8 10^3/uL (4.0-10.5)
[2019-08-06 11:34] LABS: ANION GAP 10 (5-19); BLOOD UREA NITROGEN 18 mg/dL (7-20); CALCIUM 8.2 mg/dL (8.4-10.2); CARBON DIOXIDE 19 mmol/L (22-30); CHLORIDE 102 mmol/L (98-107); GLUCOSE 157 mg/dL (75-110); POTASSIUM 3.8 mmol/L (3.6-5.0)
[2019-08-06 11:54] LABS: HEMOGLOBIN 7.9 g/dL (12.0-15.5)
[2019-08-06] MEDS: ESCITALOPRAM OXALATE 10 MG TABLET PO SCH (12:06)
[2019-08-06] MEDS: DOCUSATE SODIUM 100 MG CAPSULE PO SCH (12:06)
[2019-08-06] MEDS: MAGNESIUM OXIDE 400 MG TABLET PO SCH ×2 (12:06→18:28)
[2019-08-06] MEDS: ENOXAPARIN SODIUM INJ 30 MG/0.3 ML DISP.SYRIN SUBCUT SCH (12:07)
[2019-08-06] MEDS: LIDOCAINE 5% (700 MG) TRANSDERMAL ADH..PATCH TP SCH (12:08)
--- NOTE | 2019-08-06 16:50 | PDOC PROGRESS REPORT ---
Subjective Progress Note for:: 08/06/19 Subjective:: No adverse events overnight. She is able to get up and ambulate under her own power. She was complaining of pain but whenever I came in the room to see her she was fast asleep. She complains of being swollen. Her breathing is comfortable. Reason For Visit: DIABETIC FOOT INFECTION Physical Exam Vital Signs: Temp Pulse Resp BP Pulse Ox 98.5 F 81 18 104/52 L 96 08/06/19 10:36 08/06/19 10:36 08/06/19 10:36 08/06/19 10:36 08/06/19 10:36 Intake & Output 08/05/19 08/06/19 08/07/19 06:59 06:59 06:59 Intake Total 2030 2290 460 Output Total 200 Balance 1830 2290 460 Weight 95.2 kg 95.2 kg Results Laboratory Results: 08/06/19 11:05 08/06/19 11:05 08/06/19 08/06/19 11:05 11:05 WBC 9.8 RBC 2.24 L Hgb 7.9 L Hct 23.5 L MCV 105 H MCH 35.1 H MCHC 33.5 RDW 16.3 H Plt Count 113 L Sodium 131.2 L Potassium 3.8 Chloride 102 Carbon Dioxide 19 L Anion Gap 10 BUN 18 Creatinine 2.85 H Est GFR ( Amer) 21 L Glucose 157 H Calcium 8.2 L Impressions: Venous Doppler Study 07/28/19 15:29 IMPRESSION: 1. Limited evaluation due to edema and swelling. See above comment. 2. NO EVIDENCE OF DVT OR SVT IN THE RIGHT LEG. Foot X-Ray 07/28/19 17:51 IMPRESSION: 1. No significant interval changes since the prior examination dated 07/25/2019. No radiographic evidence of osteomyelitis. 2. Soft tissue injury/defect again identified along the lateral aspect of the fifth metatarsophalangeal joint, consistent with the patient's known ulcer. 3. Soft tissue swelling involving the right foot. Abdomen Ultrasound 07/29/19 00:00 IMPRESSION: Splenomegaly. No other significant findings. Head CT 08/04/19 00:00 IMPRESSION: No acute intracranial process is identified. No adverse change Lumbar Spine CT 08/05/19 00:00 IMPRESSION: Nondisplaced L1 superior endplate fracture resulting in approximately 1 mm loss of anterior vertebral body height. Background of multilevel spondylotic changes. Pelvis CT 08/05/19 00:00 IMPRESSION: No evidence of acute osseous injury. Mild, diffuse degenerative changes. Assessment and Plan - Diagnosis (1) TONYA (acute kidney injury) Is this a current diagnosis for this admission?: Yes Plan: Creatinine has plateaued I do not think fluids are going to be of any more use to her. I am going to start her back on her home Lasix and see if this will help get some of the fluid off of her at least, and possibly have a beneficial effect on her creatinine as well. 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 Infectious disease has recommended treating this like it is osteomyelitis. 6 weeks of antibiotics have been recommended. Because of the renal failure, daptomycin and meropenem have been recommended. We do not think the patient is going to be able to get this done, because she does not have the insurance to go to a facility and do this, and she does not have anyone at home that can reliably give her IV antibiotics. We are considering options that she will be able to do at home that would provide her the best coverage that we can give her if she cannot do IV antibiotics at home. Wanting to see if her creatinine trends down more before we make a definite decision. I switched her off of vancomycin to daptomycin the hopes that this will be less traumatic for her kidneys. (4) Depression Qualifiers: Depression Type: reactive depression Qualified Code(s): F32.9 - Major depressive disorder, single episode, unspecified Is this a current diagnosis for this admission?: Yes Plan: She is having a difficult time with all the different facets of this hospitalization. She was started on Zoloft. She said she takes Lexapro and BuSpar at home and so I discontinue the Zoloft and resumed her home medications. (5) Diabetic foot ulcer Qualifiers: Diabetic foot ulcer location: midfoot Diabetes mellitus type: type 1 Laterality: right Non-pressure ulcer stage: with other severity Qualified Code(s): E10.621 - Type 1 diabetes mellitus with foot ulcer; L97.418 - Non-pr essure chronic ulcer of right heel and midfoot with other specified severity Is this a current diagnosis for this admission?: Yes Plan: Attempting to treat with IV antibiotics for osteomyelitis. Amputation of the foot is a possibility, but the patient wanted to try something besides that. (6) Type 1 diabetes mellitus Qualifiers: Diabetes mellitus complication status: with circulatory complication Diabetes mellitus complication detail: with other circulatory complications Qualified Code(s): E10.59 - Type 1 diabetes mellitus with other circulatory complications Is this a current diagnosis for this admission?: Yes Plan: Blood sugars have been well controlled (7) Hyponatremia Is this a current diagnosis for this admission?: Yes Plan: Nearly normal now (8) Sepsis Qualifiers: Sepsis type: methicillin resistant Staphylococcus aureus Sepsis acute organ dysfunction status: with acute organ dysfunction Severe sepsis acute organ dysfunction type: acute renal failure Acute renal failure type: with acute tubular necrosis Severe sepsis shock status: without septic shock Qualified Code(s): A41.02 - Sepsis due to Methicillin resistant Staphylococcus aureus; R65.20 - Severe sepsis without septic shock; N17.0 - Acute kidney failure with tubular necrosis Is this a current diagnosis for this admission?: Yes Plan: Continue with antibiotics and supportive care as noted above (9) Anemia Qualifiers: Anemia type: other cause Other causes of anemia: chronic disease, other Qualified Code(s): D63.8 - Anemia in other chronic diseases classified elsewhere Is this a current diagnosis for this admission?: Yes Plan: The patient's anemia work-up did not reveal iron deficiency nor did it reveal decreased folic acid B12 levels. It is unclear what the cause of the anemia is. The surgery was not big enough to cause acute blood loss anemia postoperatively. It may be due to her history of alcohol abuse. We will continue to monitor. If the hemoglobin continues to decline the patient may warrant transfusion. I am considering transfusing her to see if it would help her kidneys, but I would like to decrease some of her volume overload first. (10) Compression fracture of L1 lumbar vertebra Qualifiers: Encounter type: initial encounter Qualified Code(s): S32.010A - Wedge compression fracture of first lumbar vertebra, initial encounter for closed fracture Is this a current diagnosis for this admission?: Yes Plan: There is a very mild deformity. She is already on a substantial dose of Percocet. I have ordered a Lidoderm patch and a physical therapy consult. She seems to be getting up out of the bed and ambulating without any difficulty. - Plan Summary Summary: Wound culture is currently yielding group D enterococcus as well as MRSA. As per surgery wound is clean and to need to continue with twice daily dressing changes once discharge. Home health has been ordered. She will follow-up with surgical clinic in 7 to 10 days. Patient however is still on IV antibiotics with acute renal failure. Her creatinine is 2.5 and was 0.48 on admission just 4 days ago. Vancomycin level is 34.1 she would benefit from some IV fluid hydration. Her creatinine will hopefully trend downwards - Time Time Spent with patient: 25-34 minutes
[2019-08-06] MEDS: FUROSEMIDE 40 MG TABLET PO SCH (18:28)
[2019-08-06] MEDS: MELATONIN 5 MG TABLET PO SCH (21:07)
[2019-08-07] MEDS: OXYCODONE-ACETAMINOPHEN 5-325 MG TABLET PO PRN ×6 (01:52→22:43)
[2019-08-07] MEDS: PANTOPRAZOLE SODIUM 20 MG TABLET.DR PO SCH (05:54)
[2019-08-07] MEDS: BUSPIRONE HCL 10 MG TABLET PO SCH ×3 (05:54→22:43)
[2019-08-07] MEDS: AMOXICILLIN TR/POT CLAVULANATE 500-125 MG TAB PO SCH ×3 (05:55→22:43)
[2019-08-07 06:41] LABS: HEMATOCRIT 23.4 % (36.0-47.0); HEMOGLOBIN 8.1 g/dL (12.0-15.5); MEAN CORPUSCULAR HEMOGLOBIN 35.7 pg (27.0-33.4); MEAN CORPUSCULAR HGB CONC 34.7 g/dL (32.0-36.0); MEAN CORPUSCULAR VOLUME 103 fl (80-97); PLATELET COUNT 140 10^3/uL (150-450); RED BLOOD COUNT 2.27 10^6/uL (3.72-5.28); RED CELL DISTRIBUTION WIDTH 16.1 % (11.5-14.0); WHITE BLOOD COUNT 10.7 10^3/uL (4.0-10.5)
[2019-08-07 07:05] LABS: ANION GAP 11 (5-19); BLOOD UREA NITROGEN 19 mg/dL (7-20); CALCIUM 8.7 mg/dL (8.4-10.2); CARBON DIOXIDE 19 mmol/L (22-30); CHLORIDE 102 mmol/L (98-107); CREATINE KINASE 36 U/L (30-135); GLUCOSE 116 mg/dL (75-110); POTASSIUM 3.9 mmol/L (3.6-5.0)
[2019-08-07] MEDS: ESCITALOPRAM OXALATE 10 MG TABLET PO SCH (09:32)
[2019-08-07] MEDS: LIDOCAINE 5% (700 MG) TRANSDERMAL ADH..PATCH TP SCH (09:33)
[2019-08-07] MEDS: MAGNESIUM OXIDE 400 MG TABLET PO SCH ×2 (09:33→17:17)
[2019-08-07] MEDS: FUROSEMIDE 40 MG TABLET PO SCH (09:33)
[2019-08-07] MEDS: DOCUSATE SODIUM 100 MG CAPSULE PO SCH (09:33)
[2019-08-07] MEDS: ENOXAPARIN SODIUM INJ 30 MG/0.3 ML DISP.SYRIN SUBCUT SCH (09:34)
[2019-08-07] MEDS ORDERED: DAPTOMYCIN 500 MG in NORMAL SALINE 50 ML IV SCH ×4 (10:00)
[2019-08-07] MEDS: NICOTINE 21 MG/24 HR PATCH.TD24 TD SCH (10:24)
--- NOTE | 2019-08-07 15:20 | PDOC PROGRESS REPORT ---
Subjective Progress Note for:: 08/07/19 Subjective:: No adverse events overnight. She was caught trying to sneak out of the hospital to smoke a cigarette yesterday. Apparently she got caught smoking 1 in her bathroom as well. She was asleep in her chair when I came in the room. When I woke her up the first thing she asked was if her pain medication could be switched to Dilaudid just while she is in the hospital. Reason For Visit: DIABETIC FOOT INFECTION Physical Exam Vital Signs: Temp Pulse Resp BP Pulse Ox 98.6 F 83 20 101/75 98 08/07/19 07:50 08/07/19 07:50 08/07/19 07:50 08/07/19 07:50 08/07/19 07:50 Intake & Output 08/06/19 08/07/19 08/08/19 06:59 06:59 06:59 Intake Total 2290 2660 Balance 2290 2660 Weight 95.2 kg General appearance: PRESENT: cooperative, no apparent distress, well-developed Teeth exam: PRESENT: poor dentation Respiratory exam: PRESENT: clear to auscultation kristina, symmetrical, unlabored. ABSENT: prolonged expiratory phas, rales, rhonchi, tachypnea, wheezes Cardiovascular exam: PRESENT: RRR, +S1, +S2. ABSENT: diastolic murmur, irregular rhythm, systolic murmur GI/Abdominal exam: PRESENT: normal bowel sounds, soft. ABSENT: distended, guarding, tenderness Gentrourinary exam: ABSENT: indwelling catheter Extremities exam: PRESENT: pedal edema Neurological exam: PRESENT: alert, awake, oriented to person, oriented to place, oriented to time, oriented to situation, CN II-XII grossly intact Psychiatric exam: PRESENT: depressed Results Laboratory Results: 08/07/19 06:23 08/07/19 06:23 08/07/19 08/07/19 06:23 06:23 WBC 10.7 H RBC 2.27 L Hgb 8.1 L Hct 23.4 L MCV 103 H MCH 35.7 H MCHC 34.7 RDW 16.1 H Plt Count 140 L Sodium 131.5 L Potassium 3.9 Chloride 102 Carbon Dioxide 19 L Anion Gap 11 BUN 19 Creatinine 2.77 H Est GFR ( Amer) 22 L Glucose 116 H Calcium 8.7 08/07/19 06:23 Creatine Kinase 36 Impressions: Venous Doppler Study 07/28/19 15:29 IMPRESSION: 1. Limited evaluation due to edema and swelling. See above comment. 2. NO EVIDENCE OF DVT OR SVT IN THE RIGHT LEG. Foot X-Ray 07/28/19 17:51 IMPRESSION: 1. No significant interval changes since the prior examination dated 07/25/2019. No radiographic evidence of osteomyelitis. 2. Soft tissue injury/defect again identified along the lateral aspect of the fifth metatarsophalangeal joint, consistent with the patient's known ulcer. 3. Soft tissue swelling involving the right foot. Abdomen Ultrasound 07/29/19 00:00 IMPRESSION: Splenomegaly. No other significant findings. Head CT 08/04/19 00:00 IMPRESSION: No acute intracranial process is identified. No adverse change Lumbar Spine CT 08/05/19 00:00 IMPRESSION: Nondisplaced L1 superior endplate fracture resulting in approximately 1 mm loss of anterior vertebral body height. Background of multilevel spondylotic changes. Pelvis CT 08/05/19 00:00 IMPRESSION: No evidence of acute osseous injury. Mild, diffuse degenerative changes. Assessment and Plan - Diagnosis (1) TONYA (acute kidney injury) Is this a current diagnosis for this admission?: Yes Plan: I think this is ATN. BUN to creatinine ratio is less than 20-1. Creatinine has been steady for days. Start her back on some Lasix to get rid of some excess fluid yesterday and her creatinine has actually improved a little bit.. 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 Infectious disease has recommended treating this like it is osteomyelitis. 6 weeks of an tibiotics have been recommended. Because of the renal failure, daptomycin and meropenem have been recommended. We do not think the patient is going to be able to get this done, because she does not have the insurance to go to a facility and do this, and she does not have anyone at home that can reliably give her IV antibiotics. We are considering options that she will be able to do at home that would provide her the best coverage that we can give her if she cannot do IV antibiotics at home. Wanting to see if her creatinine trends down more before we make a definite decision. I switched her off of vancomycin to daptomycin the hopes that this will be less traumatic for her kidneys. I put an order for a PICC line in anticipation that the patient will go home and will be able to get IV antibiotics as an outpatient. (4) Depression Qualifiers: Depression Type: reactive depression Qualified Code(s): F32.9 - Major dep ressive disorder, single episode, unspecified Is this a current diagnosis for this admission?: Yes Plan: She is having a difficult time with all the different facets of this hospitalization. She was started on Zoloft. She said she takes Lexapro and BuSpar at home and so I discontinue the Zoloft and resumed her home medications. (5) Diabetic foot ulcer Qualifiers: Diabetic foot ulcer location: midfoot Diabetes mellitus type: type 1 Laterality: right Non-pressure ulcer stage: with other severity Qualified Code(s): E10.621 - Type 1 diabetes mellitus with foot ulcer; L97.418 - Non-press ure chronic ulcer of right heel and midfoot with other specified severity Is this a current diagnosis for this admission?: Yes Plan: Attempting to treat with IV antibiotics for osteomyelitis. Amputation of the foot is a possibility, but the patient wanted to try something besides that. (6) Type 1 diabetes mellitus Qualifiers: Diabetes mellitus complication status: with circulatory complication Diabetes mellitus complication detail: with other circulatory complications Qualified Code(s): E10.59 - Type 1 diabetes mellitus with other circulatory complications Is this a current diagnosis for this admission?: Yes Plan: Blood sugars have been well controlled (7) Hyponatremia Is this a current diagnosis for this admission?: Yes Plan: Nearly normal now (8) Sepsis Qualifiers: Sepsis type: methicillin resistant Staphylococcus aureus Sepsis acute organ dysfunction status: with acute organ dysfunction Severe sepsis acute organ dys function type: acute renal failure Acute renal failure type: with acute tubular necrosis Severe sepsis shock status: without septic shock Qualified Code(s): A41.02 - Sepsis due to Methicillin resistant Staphylococcus aureus; R65.20 - Severe sepsis without septic shock; N17.0 - Acute kidney failure with tubular necrosis Is this a current diagnosis for this admission?: Yes Plan: Continue with antibiotics and supportive care as noted above (9) Anemia Qualifiers: Anemia type: other cause Other causes of anemia: chronic disease, other Qualified Code(s): D63.8 - Anemia in other chronic diseases classified elsewhere Is this a current diagnosis for this admission?: Yes Plan: The patient's anemia work-up did not reveal iron deficiency nor did it reveal decreased folic acid B12 levels. It is unclear what the cause of the anemia is. The surgery was not big enough to cause acute blood loss anemia postoperatively. It may be due to her history of alcohol abuse. We will continue to monitor. If the hemoglobin continues to decline the patient may warrant transfusion. I am considering transfusing her to see if it would help her kidneys, but I would like to decrease some of her volume overload first. (10) Compression fracture of L1 lumbar vertebra Qualifiers: Encounter type: initial encounter Qualified Code(s): S32.010A - Wedge compression fracture of first lumbar vertebra, initial encounter for closed fracture Is this a current diagnosis for this admission?: Yes Plan: There is a very mild deformity. She is already on a substantial dose of Percocet. I have ordered a Lidoderm patch and a physical therapy consult. She seems to be getting up out of the bed and ambulating without any difficulty. - Plan Summary Summary: Wound culture is currently yielding group D enterococcus as well as MRSA. As per surgery wound is clean and to need to continue with twice daily dressing changes once discharge. Home health has been ordered. She will follow-up with surgical clinic in 7 to 10 days. Patient however is still on IV antibiotics with acute renal failure. Her creatinine is 2.5 and was 0.48 on admission just 4 days ago. Vancomycin level is 34.1 she would benefit from some IV fluid hydration. Her creatinine will hopefully trend downwards - Time Time Spent with patient: 25-34 minutes
[2019-08-07] MEDS: DAPTOMYCIN 500 MG in NORMAL SALINE 50 ML IV SCH (16:40)
[2019-08-07] MEDS: MELATONIN 5 MG TABLET PO SCH (22:43)
[2019-08-08] MEDS: OXYCODONE-ACETAMINOPHEN 5-325 MG TABLET PO PRN ×5 (02:39→19:48)
[2019-08-08 06:13] LABS: HEMATOCRIT 23.7 % (36.0-47.0); HEMOGLOBIN 8.1 g/dL (12.0-15.5); MEAN CORPUSCULAR HEMOGLOBIN 35.3 pg (27.0-33.4); MEAN CORPUSCULAR HGB CONC 34.1 g/dL (32.0-36.0); MEAN CORPUSCULAR VOLUME 104 fl (80-97); PLATELET COUNT 151 10^3/uL (150-450); RED BLOOD COUNT 2.29 10^6/uL (3.72-5.28); RED CELL DISTRIBUTION WIDTH 15.9 % (11.5-14.0); WHITE BLOOD COUNT 9.5 10^3/uL (4.0-10.5)
[2019-08-08] MEDS: PANTOPRAZOLE SODIUM 20 MG TABLET.DR PO SCH (06:38)
[2019-08-08] MEDS: AMOXICILLIN TR/POT CLAVULANATE 500-125 MG TAB PO SCH ×3 (06:38→23:01)
[2019-08-08] MEDS: BUSPIRONE HCL 10 MG TABLET PO SCH ×3 (06:38→23:01)
[2019-08-08 06:40] LABS: ANION GAP 10 (5-19); BLOOD UREA NITROGEN 19 mg/dL (7-20); CALCIUM 8.7 mg/dL (8.4-10.2); CARBON DIOXIDE 21 mmol/L (22-30); CHLORIDE 101 mmol/L (98-107); CREATINE KINASE 31 U/L (30-135); GLUCOSE 120 mg/dL (75-110); POTASSIUM 3.6 mmol/L (3.6-5.0)
[2019-08-08] MEDS: ESCITALOPRAM OXALATE 10 MG TABLET PO SCH (10:21)
[2019-08-08] MEDS: FUROSEMIDE 40 MG TABLET PO SCH (10:21)
[2019-08-08] MEDS: LIDOCAINE 5% (700 MG) TRANSDERMAL ADH..PATCH TP SCH (10:21)
[2019-08-08] MEDS: DOCUSATE SODIUM 100 MG CAPSULE PO SCH (10:21)
[2019-08-08] MEDS: MAGNESIUM OXIDE 400 MG TABLET PO SCH ×2 (10:21→19:47)
[2019-08-08] MEDS: NICOTINE 21 MG/24 HR PATCH.TD24 TD SCH (10:22)
[2019-08-08] MEDS: ENOXAPARIN SODIUM INJ 30 MG/0.3 ML DISP.SYRIN SUBCUT SCH (10:22)
--- NOTE | 2019-08-08 16:24 | PDOC PROGRESS REPORT ---
Subjective Progress Note for:: 08/08/19 Subjective:: No adverse events overnight. No new complaints. She is able to get up and ambulate independently with a walker. We were not able to get her PICC line for her today because of the holiday weekend. We should be able to get it tomorrow. Her vital signs have been stable. Creatinine has essentially plateaued. Reason For Visit: DIABETIC FOOT INFECTION Physical Exam Vital Signs: Temp Pulse Resp BP Pulse Ox 98.1 F 71 16 107/67 98 08/08/19 11:30 08/08/19 11:30 08/08/19 11:30 08/08/19 11:30 08/08/19 11:30 Intake & Output 08/07/19 08/08/19 08/09/19 06:59 06:59 06:59 Intake Total 2660 372 120 Balance 2660 372 120 Weight 95.2 kg General appearance: PRESENT: cooperative, no apparent distress, well-developed Teeth exam: PRESENT: poor dentation Respiratory exam: PRESENT: clear to auscultation kristina, symmetrical, unlabored. ABSENT: prolonged expiratory phas, rales, rhonchi, tachypnea, wheezes Cardiovascular exam: PRESENT: RRR, +S1, +S2. ABSENT: diastolic murmur, irregular rhythm, systolic murmur GI/Abdominal exam: PRESENT: normal bowel sounds, soft. ABSENT: distended, guarding, tenderness Gentrourinary exam: ABSENT: indwelling catheter Extremities exam: PRESENT: pedal edema Neurological exam: PRESENT: alert, awake, oriented to person, oriented to place, oriented to time, oriented to situation, CN II-XII grossly intact Psychiatric exam: PRESENT: depressed Results Laboratory Results: 08/08/19 05:54 08/08/19 05:54 08/08/19 08/08/19 05:54 05:54 WBC 9.5 RBC 2.29 L Hgb 8.1 L Hct 23.7 L MCV 104 H MCH 35.3 H MCHC 34.1 RDW 15.9 H Plt Count 151 Sodium 131.7 L Potassium 3.6 Chloride 101 Carbon Dioxide 21 L Anion Gap 10 BUN 19 Creatinine 2.93 H Est GFR ( Amer) 21 L Glucose 120 H Calcium 8.7 08/07/19 08/08/19 06:23 05:54 Creatine Kinase 36 31 Impressions: Venous Doppler Study 07/28/19 15:29 IMPRESSION: 1. Limited evaluation due to edema and swelling. See above comment. 2. NO EVIDENCE OF DVT OR SVT IN THE RIGHT LEG. Foot X-Ray 07/28/19 17:51 IMPRESSION: 1. No significant interval changes since the prior examination dated 07/25/2019. No radiographic evidence of osteomyelitis. 2. Soft tissue injury/defect again identified along the lateral aspect of the fifth metatarsophalangeal joint, consistent with the patient's known ulcer. 3. Soft tissue swelling involving the right foot. Abdomen Ultrasound 07/29/19 00:00 IMPRESSION: Splenomegaly. No other significant findings. Head CT 08/04/19 00:00 IMPRESSION: No acute intracranial process is identified. No adverse change Lumbar Spine CT 08/05/19 00:00 IMPRESSION: Nondisplaced L1 superior endplate fracture resulting in approximately 1 mm loss of anterior vertebral body height. Background of multilevel spondylotic changes. Pelvis CT 08/05/19 00:00 IMPRESSION: No evidence of acute osseous injury. Mild, diffuse degenerative changes. Assessment and Plan - Diagnosis (1) TONYA (acute kidney injury) Is this a current diagnosis for this admission?: Yes Plan: I think this is ATN. BUN to creatinine ratio is less than 20-1. Creatinine has been steady for days. Start her back on some Lasix to get rid of some excess fluid yesterday and her creatinine has actually improved a little bit. Now it seems to be staying in the upper twos. This will likely just take some time. Taken her off vancomycin and switched to daptomycin in the hopes that this will be more tolerable by her kidneys. 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 Infectious disease has recommended treating this like it is osteomyelitis. 6 weeks of antibiotics have been recommended. Because of the renal failure, daptomycin and meropenem have been recommended. We do not think the patient is going to be able to get this done, because she does not have the insurance to go to a facility and do this, and she does not have anyone at home that can reliably give her IV antibiotics. We are considering options that she will be able to do at home that would provide her the best coverage that we can give her if she cannot do IV antibiotics at home. I switched her off of vancomycin to d aptomycin the hopes that this will be less traumatic for her kidneys. I put an order for a PICC line in anticipation that the patient will go home and will be able to get IV antibiotics as an outpatient. We are checking to see that her insurance will pay for daptomycin at home. (4) Depression Qualifiers: Depression Type: reactive depression Qualified Code(s): F32.9 - Major depressive disorder, single episode, unspecified Is this a current diagnosis for this admission?: Yes Plan: She is having a difficult time with all the different facets of this hospitalization. She was started on Zoloft. She said she takes Lexapro and BuSpar at home and so I discontinued the Zoloft and resumed her home medications. (5) Diabetic foot ulcer Qualifiers: Diabetic foot ulcer location: midfoot Diabetes mellitus type: type 1 Laterality: right Non-pressure ulcer stage: with other severity Qualified Code(s): E10.621 - Type 1 diabetes mellitus with foot ulcer; L97.418 - Non- pressure chronic ulcer of right heel and midfoot with other specified severity Is this a current diagnosis for this admission?: Yes Plan: Attempting to treat with IV antibiotics for osteomyelitis. Amputation of the foot is a possibility, but the patient wanted to try something besides that. (6) Type 1 diabetes mellitus Qualifiers: Diabetes mellitus complication status: with circulatory complication Diabetes mellitus complication detail: with other circulatory complications Qualified Code(s): E10.59 - Type 1 diabetes mellitus with other circulatory complications Is this a current diagnosis for this admission?: Yes Plan: Blood sugars have been well controlled (7) Hyponatremia Is this a current diagnosis for this admission?: Yes Plan: Nearly normal now (8) Sepsis Qualifiers: Sepsis type: methicillin resistant Staphylococcus aureus Sepsis acute organ dysfunction status: with acute organ dysfunction Severe sepsis acute organ dysfunction type: acute renal failure Acute renal failure type: with acute tubular necrosis Severe sepsis shock status: without septic shock Qualified Code(s): A41.02 - Sepsis due to Methicillin resistant Staphylococcus aureus; R65.20 - Severe sepsis without septic shock; N17.0 - Acute kidney failure with tubular necrosis Is this a current diagnosis for this admission?: Yes Plan: Continue with antibiotics and supportive care as noted above (9) Anemia Qualifiers: Anemia type: other cause Other causes of anemia: chronic disease, other Qualified Code(s): D63.8 - Anemia in other chronic diseases classified elsewhere Is this a current diagnosis for this admission?: Yes Plan: The patient's anemia work-up did not reveal iron deficiency nor did it reveal decreased folic acid B12 levels. It is unclear what the cause of the anemia is. The surgery was not big enough to cause acute blood loss anemia postoperatively. It may be due to her history of alcohol abuse. We will continue to monitor. If the hemoglobin continues to decline the patient may warrant transfusion. I am considering transfusing her to see if it would help her kidneys, but I would like to decrease some of her volume overload first. (10) Compression fracture of L1 lumbar vertebra Qualifiers: Encounter type: initial encounter Qualified Code(s): S32.010A - Wedge compression fracture of first lumbar vertebra, initial encounter for closed fracture Is this a current diagnosis for this admission?: Yes Plan: There is a very mild deformity. She is already on a substantial dose of Percocet. I have ordered a Lidoderm patch and a physical therapy consult. She seems to be getting up out of the bed and ambulating without any difficulty. - Plan Summary Summary: Wound culture is currently yielding group D enterococcus as well as MRSA. As per surgery wound is clean and to need to continue with twice daily dressing changes once discharge. Home health has been ordered. She will follow-up with surgical clinic in 7 to 10 days. Patient however is still on IV antibiotics with acute renal failure. Her creatinine is 2.5 and was 0.48 on admission just 4 days ago. Vancomycin level is 34.1 she would benefit from some IV fluid hydration. Her creatinine will hopefully trend downwards - Time Time Spent with patient: 25-34 minutes
[2019-08-08] MEDS: MELATONIN 5 MG TABLET PO SCH (23:01)
[2019-08-09] MEDS: OXYCODONE-ACETAMINOPHEN 5-325 MG TABLET PO PRN ×4 (00:04→13:06)
[2019-08-09] MEDS: AMOXICILLIN TR/POT CLAVULANATE 500-125 MG TAB PO SCH ×2 (06:19→15:35)
[2019-08-09] MEDS: BUSPIRONE HCL 10 MG TABLET PO SCH ×2 (06:20→15:35)
[2019-08-09] MEDS: PANTOPRAZOLE SODIUM 20 MG TABLET.DR PO SCH (06:20)
[2019-08-09 06:24] LABS: HEMATOCRIT 23.9 % (36.0-47.0); HEMOGLOBIN 8.3 g/dL (12.0-15.5); MEAN CORPUSCULAR HEMOGLOBIN 35.9 pg (27.0-33.4); MEAN CORPUSCULAR HGB CONC 34.5 g/dL (32.0-36.0); MEAN CORPUSCULAR VOLUME 104 fl (80-97); PLATELET COUNT 154 10^3/uL (150-450); RED CELL DISTRIBUTION WIDTH 16.1 % (11.5-14.0); WHITE BLOOD COUNT 9.4 10^3/uL (4.0-10.5)
[2019-08-09 06:45] LABS: ANION GAP 10 (5-19); BLOOD UREA NITROGEN 21 mg/dL (7-20); CALCIUM 8.9 mg/dL (8.4-10.2); CARBON DIOXIDE 22 mmol/L (22-30); CHLORIDE 102 mmol/L (98-107); CREATINE KINASE 30 U/L (30-135); GLUCOSE 131 mg/dL (75-110); POTASSIUM 3.8 mmol/L (3.6-5.0)
[2019-08-09] MEDS: ENOXAPARIN SODIUM INJ 30 MG/0.3 ML DISP.SYRIN SUBCUT SCH (09:47)
[2019-08-09] MEDS: LIDOCAINE 5% (700 MG) TRANSDERMAL ADH..PATCH TP SCH (09:47)
[2019-08-09] MEDS: MAGNESIUM OXIDE 400 MG TABLET PO SCH (09:48)
[2019-08-09] MEDS: NICOTINE 21 MG/24 HR PATCH.TD24 TD SCH (09:48)
[2019-08-09] MEDS: FUROSEMIDE 40 MG TABLET PO SCH (09:48)
[2019-08-09] MEDS: ESCITALOPRAM OXALATE 10 MG TABLET PO SCH (09:48)
[2019-08-09] MEDS: DOCUSATE SODIUM 100 MG CAPSULE PO SCH (09:49)
[2019-08-09] MEDS: DAPTOMYCIN 500 MG in NORMAL SALINE 50 ML IV SCH (15:34)
--- NOTE | 2019-08-09 15:52 | RADIOLOGY REPORT (SQ) ---
EXAM DESCRIPTION: PICC INSERTION IMAGES COMPLETED DATE/TIME: 08/09/2019 3:28 pm REASON FOR STUDY: iv access COMPARISON: None. FLUOROSCOPY TIME: 21 seconds of fluoroscopy was used. 1 images saved to PACS. TECHNIQUE: Fluoroscopic and ultrasound guided PICC placement. LIMITATIONS: None. PROCEDURE: After written consent and assessment were obtained, the patient was brought into the fluo roscopy room and placed supine on the table. Ultrasound evaluation of potential access sites were per formed. After successfully identifying a patent left basilic vein, the left arm was prepped and drape d in a sterile fashion along with the ultrasound probe. The entry site was anesthetized with 1% lidoc john. A 21 gauge 7 cm needle was advanced through the skin and into the basilic vein under live ultra sound guidance. An ultrasound image was saved to PACS confirming access site. A .018 guide wire was then inserted through the needle and into the venous system. The needle was then removed and an 11 b lade scalpel was used to make a 1cm skin incision. A 5 fr peel-away sheath was advanced over the wir e and into the venous system. A measurement was then made using the existing wire and live fluoroscop ic guidance. The wire was then removed and trimmed. The PICC was advanced through the peel-away sheat h and into the venous system. The peel-away sheath was removed and the catheter was adhered to the pa tients arm with a stat lock. The catheter was then aspirated and flushed and a sterile bandage was pl aced over the access site. A fluoroscopic spot image was saved to PACS confirming the catheter tip w ithin the superior vena cava. IMPRESSION: SUCCESSFUL PLACEMENT OF A 5 FR DUAL LUMEN 42 CM PICC IN THE LEFT BASILIC VEIN. COMMENT: Patient medication list reviewed: Yes- Quality ID# [id number]:Eligible professional attests to doc umenting in the medical record they obtained, updated, or reviewed the patient's current medications. . Quality ID 145: Final reports for procedures using fluoroscopy that document radiation exposure christopher sudhakar, or exposure time and number of fluorographic images (if radiation exposure indices are not avail able) Quality ID #76: The patient was prepped and draped using maximum sterile barrier technique including cap, mask, sterile gown, sterile gloves, a large sterile sheet, hand hygiene, and 2% Chlorhexidine fo r cutaneous antisepsis. When ultrasound is used, sterile ultrasound techniques are followed requiring sterile gel and sterile probes. TECHNICAL DOCUMENTATION: JOB ID: [id number] 2010 [employer]- All Rights Reserved rev-07/31 Reading location - IP/workstation name: [email or web address]
--- NOTE | 2019-08-09 16:40 | PDOC DISCHARGE SUMMARY ---
Impression - Admit/DC Date/PCP Admission Date/Primary Care Provider: 07/28/19 18:33 Discharge Date: 08/09/19 - Discharge Diagnosis (1) TONYA (acute kidney injury) Is this a current diagnosis for this admission?: Yes (2) Alcohol use disorder Is this a current diagnosis for this admission?: Yes (3) Cellulitis of right lower extremity Is this a current diagnosis for this admission?: Yes (4) Depression Is this a current diagnosis for this admission?: Yes (5) Diabetic foot ulcer Is this a current diagnosis for this admission?: Yes (6) Type 1 diabetes mellitus Is this a current diagnosis for this admission?: Yes (7) Hyponatremia Is this a current diagnosis for this admission?: Yes (8) Sepsis Is this a current diagnosis for this admission?: Yes (9) Anemia Is this a current diagnosis for this admission?: Yes (10) Compression fracture of L1 lumbar vertebra Is this a current diagnosis for this admission?: Yes - Assessment Summary: Wound culture is currently yielding group D enterococcus as well as MRSA. As per surgery wound is clean and to need to continue with twice daily dressing changes once discharge. Home health has been ordered. She will follow-up with surgical clinic in 7 to 10 days. Patient however is still on IV antibiotics with acute renal failure. Her creatinine is 2.5 and was 0.48 on admission just 4 days ago. Vancomycin level is 34.1 she would benefit from some IV fluid hydration. Her creatinine will hopefully trend downwards - Additional Information Resuscitation Status: Full Code Discharge Diet: Cardiac, Diabetic Discharge Activity: Supervised Activity - Use walker Referrals: BERNY ROBERTS MD [ACTIVE STAFF] - 08/15/19 8:15 am (07/28 S/P R 5TH TOE AMP. F/U IN 7-10 DAYS) NATALIIA PAN DO [NO LOCAL MD] - (1 week) Prescriptions: Glipizide [Glucotrol Xl 2.5 mg Tab.er] 2.5 mg PO QAM #30 tab.er.24 Levofloxacin [Levaquin 500 mg Tablet] 500 mg PO Q2DAYS #18 tablet Home Medications: Escitalopram Oxalate [Lexapro] 40 mg PO DAILY 01/10/18 Oxycodone HCl [Oxycodone HCl 10 MG Tablet] 10 mg PO 5XD 08/20/18 Cyanocobalamin (Vitamin B-12) [Vitamin B-12 SL 2500 mcg Tablet] 2,500 mcg SL DAILY #30 tab.subl 09/04/18 Magnesium Oxide [Magnesium] 800 mg PO BID #40 capsule 09/04/18 Buspirone HCl [Buspar 10 mg Tablet] 7.5 mg PO BID 07/28/19 Cholecalciferol (Vitamin D3) [Vitamin D3 1000 Unit Tablet] 1,000 unit PO DAILY 07/28/19 Ergocalciferol (Vitamin D2) [Drisdol 50,000 unit (1.25MG) Capsule] 50,000 unit PO FR@1000 07/28/19 Iron 18 mg PO DAILY 07/28/19 L.acidoph,Paracasei, B.lactis [Probiotic] 1 tab PO DAILY 07/28/19 Niacin 500 mg PO DAILY 07/28/19 Daptomycin [Cubicin Inj 500 mg Vial] 500 mg IV Q2DAYS@1600 vial 08/09/19 Furosemide [Lasix 40 mg Tablet] 40 mg PO DAILY #0 08/09/19 Glipizide [Glucotrol Xl 2.5 mg Tab.er] 2.5 mg PO QAM #30 tab.er.24 08/09/19 Levofloxacin [Levaquin 500 mg Tablet] 500 mg PO Q2DAYS #18 tablet 08/09/19 History of Present Illiness History of Present Illness: JOVANNI RENTERIA is a 49 year old female To the emergency room with complaints of right leg pain and swelling. She states that she was seen by I believe the camp program director and had recent debridement of the wound however there is continued swelling and pain. She was started on Keflex and Levaquin on July 24. She returned today and she was told to come to the ER for evaluation due to the swelling and pain. Patient denies any discharge, nausea vomiting. She said she had a blister on the foot and all this started just within the last week. She does give a history of daily wine drinking. She has been diabetic since she was about 5 years old. Hospital Course Hospital Course: She had her fifth digit on her right foot amputated. There was concern for osteomyelitis, and there was a recommendation for an amputation of more of her foot, but the patient did not want to have any part of her lower extremity amputated, and so wanted to try to do IV antibiotics for 6 weeks to treat oste omyelitis. As a result of her acute illness, she sustained an acute kidney injury due to ATN. Her creatinine has stabilized at around 3. She has had some adjustments made to her medications as a result. She is been taken off of metformin and switch to glipizide. We were going to attempt to find ways for her to get antibiotics at home. She did not think that her would do antibiotics for her at home, and she could not get into a snf facility to get them given to her. We considered giving her an oral antibiotic regimen, but this would not have been sufficient treatment and was not recommended by infectious disease. One recommendation was for IV daptomycin and oral Levaquin. The patient said she talked to her and was able to get him convinced to give her her IV antibiotics at home. She was routinely told to stay in bed and not to get up without assistance. She was upset at having a bed alarm. She continued to get up multiple times in the causing the bed alarm to go off. She got up one time and fell. She had a CT scan that showed a very mild lumbar spine compression fracture. Despite that, she was still able to ambulate. Physical therapy saw her and recommended that she use a walker. She tried to leave the hospital several times to go outside and smoke. We caught her smoking once in the bathroom. I would come in to see her and she would be asleep, and when I woke her up she would ask me to give her Dilaudid. We had trouble getting a PICC line in her because of the holiday weekend, but we were able to get that done today with Dr. Perez's approval. We were able to arrange to get IV daptomycin for her at home. She has follow-up scheduled for [address] Roberts. We are also going to get her follow-up with her primary care provider Dr. Pan. Home health will be checking her CPK weekly while she is on daptomycin. Her labs and examination were reassuring and she was discharged in stable condition. Physical Exam Vital Signs: Temp Pulse Resp BP Pulse Ox 97.5 F 74 16 111/63 100 08/09/19 15:42 08/09/19 15:42 08/09/19 15:42 08/09/19 15:42 08/09/19 15:42 Intake & Output 08/08/19 08/09/19 08/10/19 06:59 06:59 06:59 Intake Total 372 1800 260 Balance 372 1800 260 Weight 95.2 kg 95.2 kg General appearance: PRESENT: cooperative, no apparent distress, well-developed Teeth exam: PRESENT: poor dentation Respiratory exam: PRESENT: clear to auscultation kristina, symmetrical, unlabored. ABSENT: prolonged expiratory phas, rales, rhonchi, tachypnea, wheezes Cardiovascular exam: PRESENT: RRR, +S1, +S2. ABSENT: diastolic murmur, irregular rhythm, systolic murmur GI/Abdominal exam: PRESENT: normal bowel sounds, soft. ABSENT: distended, guarding, tenderness Gentrourinary exam: ABSENT: indwelling catheter Extremities exam: PRESENT: pedal edema Neurological exam: PRESENT: alert, awake, oriented to person, oriented to place, oriented to time, oriented to situation, CN II-XII grossly intact Psychiatric exam: PRESENT: depressed Results Laboratory Results: WBC 9.4 10^3/uL (4.0-10.5) 08/09/19 05:33 RBC 2.30 10^6/uL (3.72-5.28) L 08/09/19 05:33 Hgb 8.3 g/dL (12.0-15.5) L 08/09/19 05:33 Hct 23.9 % (36.0-47.0) L 08/09/19 05:33 MCV 104 fl (80-97) H 08/09/19 05:33 MCH 35.9 pg (27.0-33.4) H 08/09/19 05:33 MCHC 34.5 g/dL (32.0-36.0) 08/09/19 05:33 RDW 16.1 % (11.5-14.0) H 08/09/19 05:33 Plt Count 154 10^3/uL (150-450) 08/09/19 05:33 Lymph % (Auto) 11.2 % (13-45) L 08/04/19 06:16 Cameron % (Auto) 8.7 % (3-13) 08/04/19 06:16 Eos % (Auto) 2.1 % (0-6) 08/04/19 06:16 Baso % (Auto) 0.5 % (0-2) 08/04/19 06:16 Reticulocyte # 0.064 10^6/uL (0.028-0.122) 07/29/19 05:49 Absolute Neuts (auto) 7.3 10^3/uL (1.7-8.2) 08/04/19 06:16 Absolute Lymphs (auto) 1.0 10^3/uL (0.5-4.7) 08/04/19 06:16 Absolute Monos (auto) 0.8 10^3/uL (0.1-1.4) 08/04/19 06:16 Absolute Eos (auto) 0.2 10^3/uL (0.0-0.6) 08/04/19 06:16 Absolute Basos (auto) 0.0 10^3/uL (0.0-0.2) 08/04/19 06:16 Seg Neutrophils % 77.5 % (42-78) 08/04/19 06:16 Retic Count (auto) 2.57 % (0.66-2.85) 07/29/19 05:49 PT 16.4 SEC (11.4-15.4) H 07/29/19 05:49 INR 1.31 07/29/19 05:49 Sodium 134.0 mmol/L (137-145) L 08/09/19 05:33 Potassium 3.8 mmol/L (3.6-5.0) 08/09/19 05:33 Chloride 102 mmol/L (98-107) 08/09/19 05:33 Carbon Dioxide 22 mmol/L (22-30) 08/09/19 05:33 Anion Gap 10 (5-19) 08/09/19 05:33 BUN 21 mg/dL (7-20) H 08/09/19 05:33 Creatinine 3.01 mg/dL (0.52-1.25) H 08/09/19 05:33 Est GFR ( Amer) 20 (>60) L 08/09/19 05:33 Est GFR (MDRD) Non-Af 17 (>60) L 08/09/19 05:33 Glucose 131 mg/dL (75-110) H 08/09/19 05:33 POC Glucose 164 mg/dL (70-110) H 08/09/19 15:44 Lactic Acid 1.4 mmol/L (0.7-2.1) 07/29/19 05:49 Calcium 8.9 mg/dL (8.4-10.2) 08/09/19 05:33 Phosphorus 5.5 mg/dL (2.5-4.5) H 08/04/19 06:16 Magnesium 2.3 mg/dL (1.6-2.3) 08/04/19 06:16 Iron 76.2 ug/dL (37-170) 07/29/19 05:49 TIBC 313 ug/dL (250-450) 07/29/19 05:49 % Saturation 24 % 07/29/19 05:49 Transferrin 213.58 mg/dL (206.00-381.00) 07/29/19 05:49 Ferritin 49.90 ng/mL (6.2-137.0) 07/29/19 05:49 Total Bilirubin 0.8 mg/dL (0.2-1.3) 07/28/19 16:02 Direct Bilirubin 0.2 mg/dL (0.0-0.4) 07/28/19 16:02 Neonat Total Bilirubin Not Reportable 07/28/19 16:02 Neonat Direct Bilirubin Not Reportable 07/28/19 16:02 Neonat Indirect Bili Not Reportable 07/28/19 16:02 AST 47 U/L (14-36) H 07/28/19 16:02 ALT 20 U/L (<35) 07/28/19 16:02 Alkaline Phosphatase 141 U/L (38-126) H 07/28/19 16:02 Creatine Kinase 30 U/L (30-135) 08/09/19 05:33 Total Protein 7.5 g/dL (6.3-8.2) 07/28/19 16:02 Albumin 2.4 g/dL (3.5-5.0) L 08/04/19 06:16 Vitamin B12 > 1000.0 pg/mL (239-931) H 07/29/19 05:49 Folate 10.10 ng/mL (>2.76) 07/29/19 05:49 Urine Color YELLOW 08/03/19 02:38 Urine Appearance CLOUDY 08/03/19 02:38 Urine pH 5.0 (5.0-9.0) 08/03/19 02:38 Ur Specific Counce 1.014 08/03/19 02:38 Urine Protein NEGATIVE mg/dL (NEGATIVE) 08/03/19 02:38 Urine Glucose (UA) NEGATIVE mg/dL (NEGATIVE) 08/03/19 02:38 Urine Ketones NEGATIVE mg/dL (NEGATIVE) 08/03/19 02:38 Urine Blood LARGE (NEGATIVE) H 08/03/19 02:38 Urine Nitrite NEGATIVE (NEGATIVE) 08/03/19 02:38 Urine Bilirubin NEGATIVE (NEGATIVE) 08/03/19 02:38 Urine Urobilinogen NEGATIVE mg/dL (<2.0) 08/03/19 02:38 Ur Leukocyte Esterase SMALL (NEGATIVE) H 08/03/19 02:38 Urine WBC (Auto) 5 /HPF 08/03/19 02:38 Urine RBC (Auto) 4 /HPF 08/03/19 02:38 U Hyaline Cast (Auto) 1 /LPF 08/03/19 02:38 Urine Bacteria (Auto) TRACE /HPF 08/03/19 02:38 Squamous Epi Cells Auto 12 /HPF 08/03/19 02:38 Calcium Oxalate Cr Auto FEW /HPF 07/29/19 00:15 Urine Mucus (Auto) RARE /LPF 08/03/19 02:38 Urine Ascorbic Acid NEGATIVE (NEGATIVE) 08/03/19 02:38 Time Trough Drawn 0949 08/05/19 09:49 Vancomycin Trough 14.1 ug/mL (5.0-20.0) 08/05/19 09:49 SARS-CoV-2 (PCR) NEGATIVE (NEGATIVE) 07/29/19 00:30 Impressions: Venous Doppler Study 07/28/19 15:29 IMPRESSION: 1. Limited evaluation due to edema and swelling. See above comment. 2. NO EVIDENCE OF DVT OR SVT IN THE RIGHT LEG. Foot X-Ray 07/28/19 17:51 IMPRESSION: 1. No significant interval changes since the prior examination dated 07/25/2019. No radiographic evidence of osteomyelitis. 2. Soft tissue injury/defect again identified along the lateral aspect of the fifth metatarsophalangeal joint, consistent with the patient's known ulcer. 3. Soft tissue swelling involving the right foot. Abdomen Ultrasound 07/29/19 00:00 IMPRESSION: Splenomegaly. No other significant findings. Head CT 08/04/19 00:00 IMPRESSION: No acute intracranial process is identified. No adverse change Lumbar Spine CT 08/05/19 00:00 IMPRESSION: Nondisplaced L1 superior endplate fracture resulting in approximately 1 mm loss of anterior vertebral body height. Background of multilevel spondylotic changes. Pelvis CT 08/05/19 00:00 IMPRESSION: No evidence of acute osseous injury. Mild, diffuse degenerative changes. PICC Line Insertion 08/09/19 00:00 IMPRESSION: SUCCESSFUL PLACEMENT OF A 5 FR DUAL LUMEN 42 CM PICC IN THE LEFT BASILIC VEIN. Plan Time Spent: Greater than 30 Minutes Stroke Is this a Stroke Patient?: No Acute Heart Failure - Is this a Heart Failure Patient?: No
[2019-08-09 16:54] VITALS: BP 128/62
== END 2019-08-09 17:32 | disposition home health service (06) | DRG 853 ==
LOC: ER 14:59 → EH 18:33 → 4S 20:31
PROVIDERS: ADMIT Internal Medicine; ATTEND Family Medicine
PROC: 0Y6X0Z0 Detachment at Right 5th Toe, Complete, Open Approach (ICD-10-PCS; principal; 2019-07-29 13:45)
PROC: 02HV33Z Insertion of Infusion Device into Superior Vena Cava, Percutaneous Approach (ICD-10-PCS; 2019-08-09)
DX: A41.02 Sepsis due to Methicillin resistant Staphylococcus aureus (principal); N17.0 Acute kidney failure with tubular necrosis; L03.115 Cellulitis of right lower limb; L97.418 Non-pressure chronic ulcer of right heel and midfoot with other specified severity; E87.1 Hypo-osmolality and hyponatremia; M48.56XA Collapsed vertebra, not elsewhere classified, lumbar region, initial encounter for fracture; E10.621 Type 1 diabetes mellitus with foot ulcer; E10.59 Type 1 diabetes mellitus with other circulatory complications; E10.628 Type 1 diabetes mellitus with other skin complications; D63.8 Anemia in other chronic diseases classified elsewhere; R65.20 Severe sepsis without septic shock; I10 Essential (primary) hypertension; J44.9 Chronic obstructive pulmonary disease, unspecified; F32.9 Major depressive disorder, single episode, unspecified; F17.200 Nicotine dependence, unspecified, uncomplicated; R16.1 Splenomegaly, not elsewhere classified; B95.62 Methicillin resistant Staphylococcus aureus infection as the cause of diseases classified elsewhere; B95.2 Enterococcus as the cause of diseases classified elsewhere; T36.8X5A Adverse effect of other systemic antibiotics, initial encounter; Y92.239 Unspecified place in hospital as the place of occurrence of the external cause; W19.XXXA Unspecified fall, initial encounter; Z98.84 Bariatric surgery status; Z72.89 Other problems related to lifestyle; Z79.84 Long term (current) use of oral hypoglycemic drugs; Z79.899 Other long term (current) drug therapy; Z88.2 Allergy status to sulfonamides; Z88.6 Allergy status to analgesic agent; Z88.3 Allergy status to other anti-infective agents; Z91.030 Bee allergy status; Z91.038 Other insect allergy status
CPT/HCPCS: 01480; 36415; 36573; 70450; 72131; 72192; 76700; 80048; 80053; 80069; 80202; 81001; 82550; 82565; 82607; 82728; 82746; 82962; 83540; 83550; 83605; 83735; 84466; 85025; 85027; 85045; 85610; 87040; 87070; 87075; 87077; 87086; 87186; 87205; 87635; 93971; 93976; 99285; J0743; J0878; J1170; J1642; J1650; J1885; J2250; J2405; J2543; J2704; J3010; J3370; J3490; J7030; J7050; J7060; P9047

== ENCOUNTER → 2019-08-12 | Outpatient (CLI) | payer MEDICAID ==
--- NOTE | 2019-08-12 16:47 | RADIOLOGY REPORT (SQ) ---
EXAM DESCRIPTION: T SPINE AP/LAT IMAGES COMPLETED DATE/TIME: 08/12/2019 4:22 pm REASON FOR STUDY: THORACIC SPINE PAIN M54.6 PAIN IN THORACIC SPINE COMPARISON: None. NUMBER OF VIEWS: Two views. TECHNIQUE: AP and lateral radiographic images acquired of the thoracic spine. LIMITATIONS: None. FINDINGS: MINERALIZATION: Normal. ALIGNMENT: Normal. No scoliosis. VERTEBRAE: No fracture or bone lesion. Maintained height, normal segmentation. DISCS: Diffuse bony bridging osteophytes along the rightward thoracic spine. Multilevel mild space l oss of height. HARDWARE: None in the spine. MEDIASTINUM AND SOFT TISSUES: Normal heart size and aortic contour. No soft tissue abnormality. VISUALIZED LUNG BARROS: Clear. OTHER: No other significant finding. IMPRESSION: Diffuse disc space loss of height and osteophyte formation in the thoracic spine. No acute thoracic vertebral body compression deformity TECHNICAL DOCUMENTATION: JOB ID: [id number] 2010 [email or web address]- All Rights Reserved Reading location - IP/workstation name: [email or web address]
== END ==
LOC: RAD 15:50
PROVIDERS: ATTEND Family Medicine
DX: M25.78 Osteophyte, vertebrae (principal); M54.6 Pain in thoracic spine
CPT/HCPCS: 72070

== ENCOUNTER → 2019-08-13 | Outpatient (CLI) | payer MEDICAID ==
--- NOTE | 2019-08-13 11:02 | RADIOLOGY REPORT (SQ) ---
EXAM DESCRIPTION: KNEE LEFT 4 VIEWS IMAGES COMPLETED DATE/TIME: 08/13/2019 10:42 am REASON FOR STUDY: PAIN IN LEFT KNEE M25.562 PAIN IN LEFT KNEE R07.81 PLEURODYNIA COMPARISON: None. NUMBER OF VIEWS: Four views. TECHNIQUE: AP, lateral, and both oblique radiographic images acquired of the left knee. LIMITATIONS: None. FINDINGS: MINERALIZATION: Osteopenia. BONES: No acute fracture or dislocation. No worrisome bone lesions. No significant osteophytes. JOINT: Possible joint effusion OTHER: No other significant finding. IMPRESSION: Possible joint effusion. No bony changes. TECHNICAL DOCUMENTATION: JOB ID: [id number] 2010 [employer]- All Rights Reserved Reading location - IP/workstation name: [email or web address]
--- NOTE | 2019-08-13 11:04 | RADIOLOGY REPORT (SQ) ---
EXAM DESCRIPTION: RIBS LEFT W/PA CHEST IMAGES COMPLETED DATE/TIME: 08/13/2019 10:42 am REASON FOR STUDY: PLEURODYNIA M25.562 PAIN IN LEFT KNEE R07.81 PLEURODYNIA COMPARISON: 07/25/2019 TECHNIQUE: Frontal view of the chest and additional views of the left ribs acquired. NUMBER OF VIEWS: 3 LIMITATIONS: None. FINDINGS: FRONTAL CXR: No pneumothorax. PICC catheter tip at the cavoatrial junction. Mild vascula r congestion. RIBS: Chronic healed left rib fractures. No acute fracture identified. OTHER: No other significant finding. IMPRESSION: Vascular congestion. PICC catheter in expected location. Chronic rib fractures. No acute displaced fracture. COMMENT: SITE OF TRAUMA/COMPLAINT MARKED/STAMP COMPLETED: No TECHNICAL DOCUMENTATION: JOB ID: [id number] 2010 [employer]- All Rights Reserved Reading location - IP/workstation name: [email or web address]
== END ==
LOC: OD 10:05
PROVIDERS: ATTEND Family Medicine
DX: M25.562 Pain in left knee (principal); R07.81 Pleurodynia

== ENCOUNTER 2019-10-03 14:26 | Emergency (ER) | payer MEDICAID ==
[2019-10-03 14:58] VITALS: BP 125/74
== END 2019-10-03 15:54 | disposition left against medical advice (07) ==
LOC: ER 14:26
DX: Z53.21 Procedure and treatment not carried out due to patient leaving prior to being seen by health care provider (principal)

== ENCOUNTER 2019-10-10 17:06 | Emergency (ER) | payer MEDICAID ==
[2019-10-10] MEDS ORDERED: NORMAL SALINE IV ONE (18:56)
[2019-10-10] MEDS ORDERED: PIPERACILLIN/TAZOBACTAM 4.5 GM VIAL IV ONE (18:56)
--- NOTE | 2019-10-10 19:13 | ER Document Report ---
ED Medical Screen (RME) - General Chief Complaint: Wound Infection Stated Complaint: WOUND ON FOOT Time Seen by Provider: 10/10/19 18:54 Primary Care Provider: AICHA MUÑIZ MD [Primary Care Provider] - Follow up as needed Mode of Arrival: Wheelchair Information source: Patient Notes: Patient is a 49-year-old female comes emergency room via EMS with complaint of r ight foot pain bleeding. Patient recently had amputated toes in July 2019. She states that the home health nurse came in today and told her she needed to come to emergency room to get evaluated. She is also been hypoxic at home. She is a COPD patient who continues to smoke and is on 4 L of oxygen nasal cannula at home. Patient states she has severe pain in her right foot. Physical examination shows patient to be a 49-year-old female showing no apparent distress does appear moderately ill. She is pale on examination. She also appears much older than her stated age of 49 years. Cardiac: Patient has regular rate and rhythm without any murmurs currently. Lungs: Bilateral breath sounds decreased throughout with notable inspiratory and expiratory wheeze. Pain rhonchi is heard scattered in the upper lobes. Abdomen: Bowel sounds present all 4 quads is nontender to palpate. Lower extremity. Right foot is wrapped with Tana which appears to been wrapped multiple times and patient has been walking on it has bled through the cleaning and has a blackened area with bright red blood surrounding it. There is a slight odor to it that does resemble gangrene. I have greeted and performed a rapid initial assessment of this patient. A comprehensive ED assessment and evaluation of the patient, analysis of test results and completion of the medical decision making process will be conducted by additional ED providers. Dictation of this chart was performed using voice recognition software; therefore, there may be some unintended grammatical errors. TRAVEL OUTSIDE OF THE [place] IN LAST 30 DAYS: No - Related Data Allergies/Adverse Reactions: fire ant Allergy (Severe, Verified 10/10/19 18:47) Anaphylaxis bee venom protein (honey bee) Allergy (Verified 10/10/19 18:47) morphine [Morphine] Allergy (Verified 10/10/19 18:47) nitrofurantoin macrocrystalline [From Macrobid] Allergy (Verified 10/10/19 18:47) Sulfa (Sulfonamide Antibiotics) Allergy (Verified 10/10/19 18:47) sulfamethoxazole [From Bactrim] Allergy (Verified 10/10/19 18:47) trimethoprim [From Bactrim] Allergy (Verified 10/10/19 18:47) Home Medications: dm Past Medical History - Social History Chew tobacco use (# tins/day): No Frequency of alcohol use: Occasional Drug Abuse: None - Past Medical History Cardiac Medical History: Reports: Hx Hypertension Pulmonary Medical History: Reports: Hx Asthma, Hx Bronchitis, Hx COPD Neurological Medical History: Denies: Hx Seizures Endocrine Medical History: Reports: Hx Diabetes Mellitus Type 1, Hx Diabetes Mellitus Type 2 Renal/ Medical History: Denies: Hx Peritoneal Dialysis GI Medical History: Reports: Hx Ulcer Musculoskeltal Medical History: Denies Hx Gout, Denies Hx Muscle Weakness, Denies Hx Musculoskeletal Deformity, Denies Hx Musculoskeletal Trauma Psychiatric Medical History: Reports: Hx Anxiety, Hx Depression Past Surgical History: Reports: Hx Abdominal Surgery - GBP, Hx Section, Hx Cholecystectomy, Hx Gastric Bypass Surgery, Hx Tonsillectomy. Denies: Hx Hysterectomy - Immunizations Immunizations up to date: Yes Hx Diphtheria, Pertussis, Tetanus Vaccination: Yes - 2016 Physical Exam - Vital signs Vitals: Temp 99.6 F 10/10/19 18:47 Course - Vital Signs Vital signs: Temp Pulse Resp BP Pulse Ox 99.6 F 10/10/19 18:47 Doctor's Discharge - Discharge Referrals: AICHA MUÑIZ MD [Primary Care Provider] - Follow up as needed
--- NOTE | 2019-10-10 19:48 | EKG REPORT ---
SEVERITY:- OTHERWISE NORMAL ECG - SINUS TACHYCARDIA : Confirmed by: Tresa Mayer MD 10-Oct-2019 19:46:54
[2019-10-10 20:07] LABS: APPEARANCE,URINE CLOUDY; BILIRUBIN,URINE NEGATIVE (NEGATIVE); COLOR,URINE YELLOW; GLUCOSE, URINE NEGATIVE (NEGATIVE); KETONES,URINE NEGATIVE (NEGATIVE); PROTEIN,URINE 30 mg/dL (NEGATIVE); URINE SPECIFIC GRAVITY 1.009; UROBILINOGEN,URINE NEGATIVE mg/dL (<2.0)
[2019-10-10 20:08] LABS: INTERNATIONAL RATION (INR) 1.15; PROTHROMBIN TIME 14.8 SEC (11.4-15.4)
[2019-10-10 20:09] LABS: ABSOLUTE EOSINOPHILS # (AUTO) 0.1 10^3/uL (0.0-0.6); ABSOLUTE LYMPHOCYTES (AUTO) 1.8 10^3/uL (0.5-4.7); ABSOLUTE MONOCYTES (AUTO) 0.5 10^3/uL (0.1-1.4); ABSOLUTE NEUT (AUTO) 5.7 10^3/uL (1.7-8.2); BASOPHILS % (AUTO) 0.4 % (0-2); EOSINOPHILS % (AUTO) 1.2 % (0-6); HEMATOCRIT 30.8 % (36.0-47.0); HEMOGLOBIN 10.5 g/dL (12.0-15.5); LYMPHOCYTES % (AUTO) 21.8 % (13-45); MEAN CORPUSCULAR HEMOGLOBIN 32.7 pg (27.0-33.4); MEAN CORPUSCULAR HGB CONC 34.1 g/dL (32.0-36.0); MEAN CORPUSCULAR VOLUME 96 fl (80-97); MONOCYTES % (AUTO) 5.9 % (3-13); RED BLOOD COUNT 3.21 10^6/uL (3.72-5.28); RED CELL DISTRIBUTION WIDTH 20.6 % (11.5-14.0); SEGMENTED NEUTROPHILS % (AUTO) 70.7 % (42-78); TOTAL CELLS COUNTED % (AUTO) 100 %; WHITE BLOOD COUNT 8.1 10^3/uL (4.0-10.5)
--- NOTE | 2019-10-10 20:13 | RADIOLOGY REPORT (SQ) ---
CLINICAL INDICATION: sob. TECHNIQUE: A single portable AP view was obtained of the chest at 1956 hours. COMPARISON: August 13, 2019. FINDINGS: The cardiomediastinal silhouette is enlarged but stable. The lungs demonstrate chronic change. Improved aeration when compared to prior. No evidence of effusion or pneumothorax. Osteoarthritis. Old posttraumatic change. PICC has been removed. IMPRESSION: No evidence of active intrathoracic disease.
[2019-10-10 20:16] LABS: VENOUS BLOOD HCO3 19.7 mmol/L (20-32); VENOUS BLOOD PCO2 30.9 mmHg (35-63); VENOUS BLOOD PH 7.42 (7.30-7.42)
--- NOTE | 2019-10-10 20:16 | RADIOLOGY REPORT (SQ) ---
EXAM DESCRIPTION: XR FOOT 3 OR MORE VIEWS COMPLETED DATE/TME: 10/10/2019 19:09 CLINICAL HISTORY: 49 years, Female, Gangrene COMPARISON: Prior study from 07/28/2019 NUMBER OF VIEWS: 3 TECHNIQUE: Frontal, lateral, and oblique radiographs were obtained. LIMITATIONS: None. FINDINGS: Visualized are postprocedural changes of amputation of the fifth digit at the level of the metatarsal shaft. However, there is overlying soft tissue ulceration/swelling. In addition, there are fracture deformities involving the fourth metatarsal neck, fourth proximal phalangeal shaft, and residua of the fifth metatarsal base. All 3 sites demonstrate callus formation, exuberant about the fourth and fifth metatarsals. In addition, there are elements of cortical resorption of bone about the fourth metatarsal neck as well as the residua of the fifth metatarsal base. Mild first MTP joint arthrosis is evident. Multifocal ossific densities are noted along the plantar fascia. Small plantar and posterior calcaneal spurs are evident. There is a small os trigonum. Diffuse soft tissue swelling is noted about the dorsum of the midfoot extending into the forefoot. IMPRESSION: Postsurgical changes of amputation of the fifth digit at the fifth metatarsal shaft. However, there is evidence of osteomyelitis involving the fourth and fifth metatarsals with underlying healing pathologic fracture deformities. There is also a healing fracture deformity involving the fourth proximal phalangeal shaft. Associated overlying soft tissue swelling and ulceration about the lateral aspect of the forefoot. copyright 2010 [employer]- All Rights Reserved
[2019-10-10 20:23] LABS: ALBUMIN 3.5 g/dL (3.5-5.0); ALKALINE PHOSPHATASE 249 U/L (38-126); ANION GAP 9 (5-19); ASPARTATE AMINO TRANSFERASE 73 U/L (14-36); BILIRUBIN,DIRECT 0.2 mg/dL (0.0-0.4); BLOOD UREA NITROGEN 2 mg/dL (7-20); CARBON DIOXIDE 22 mmol/L (22-30); CHLORIDE 106 mmol/L (98-107); GLUCOSE 193 mg/dL (75-110); POTASSIUM 3.2 mmol/L (3.6-5.0); TOTAL PROTEIN 8.4 g/dL (6.3-8.2)
[2019-10-10 21:17] LABS: PLATELET COUNT 92 10^3/uL (150-450)
== END 2019-10-11 01:22 | disposition left against medical advice (07) ==
LOC: ER 17:06
DX: M79.671 Pain in right foot (principal); R58 Hemorrhage, not elsewhere classified; J44.9 Chronic obstructive pulmonary disease, unspecified; R09.02 Hypoxemia; R23.1 Pallor; E11.9 Type 2 diabetes mellitus without complications; I10 Essential (primary) hypertension; F17.200 Nicotine dependence, unspecified, uncomplicated; Z89.429 Acquired absence of other toe(s), unspecified side; Z99.81 Dependence on supplemental oxygen; Z87.892 Personal history of anaphylaxis; Z91.038 Other insect allergy status; Z91.030 Bee allergy status; Z88.6 Allergy status to analgesic agent; Z88.5 Allergy status to narcotic agent; Z88.1 Allergy status to other antibiotic agents; Z88.2 Allergy status to sulfonamides; Z53.20 Procedure and treatment not carried out because of patient's decision for unspecified reasons
CPT/HCPCS: 36415; 71045; 80053; 81001; 82803; 83605; 84484; 85025; 85610; 87040; 93005; 93010; 99281

== ENCOUNTER 2019-10-11 09:20 | Inpatient (IN) | payer MEDICAID ==
--- NOTE | 2019-10-11 10:16 | ER Document Report ---
ED Medical Screen (RME) - General Chief Complaint: Abnormal Lab Results Stated Complaint: WEAKNESS Time Seen by Provider: 10/11/19 10:10 Primary Care Provider: AICHA MUÑIZ MD [Primary Care Provider] - Follow up as needed Notes: Patient is a 49-year-old female who presents to the emergency department with a chief complaint of bleeding to her right foot. Patient had not her toes amputated in July. Patient has a history of COPD. She is on 4 L nasal cannula at home. She was seen yesterday in triage, but ended up leaving. Multiple times to get the patient to come back to the emergency department was attempted, but the patient did not come back. She is here today. Does were just drawn prior to my assessment. Patient will have her toes evaluated when she is back to her room. I have greeted and performed a rapid initial assessment of this patient. A comprehensive ED assessment and evaluation of the patient, analysis of test results and completion of medical decision making process will be conducted by an additional ED providers. TRAVEL OUTSIDE OF THE [place] IN LAST 30 DAYS: No - Related Data Allergies/Adverse Reactions: fire ant Allergy (Severe, Verified 10/11/19 09:43) Anaphylaxis bee venom protein (honey bee) Allergy (Verified 10/11/19 09:43) morphine [Morphine] Allergy (Verified 10/11/19 09:43) nitrofurantoin macrocrystalline [From Macrobid] Allergy (Verified 10/11/19 09:43) Sulfa (Sulfonamide Antibiotics) Allergy (Verified 10/11/19 09:43) sulfamethoxazole [From Bactrim] Allergy (Verified 10/11/19 09:43) trimethoprim [From Bactrim] Allergy (Verified 10/11/19 09:43) Past Medical History - Social History Chew tobacco use (# tins/day): No Frequency of alcohol use: Occasional Drug Abuse: None - Past Medical History Cardiac Medical History: Reports: Hx Hypertension Pulmonary Medical History: Reports: Hx Asthma, Hx Bronchitis, Hx COPD Neurological Medical History: Denies: Hx Seizures Endocrine Medical History: Reports: Hx Diabetes Mellitus Type 1, Hx Diabetes Mellitus Type 2 Renal/ Medical History: Denies: Hx Peritoneal Dialysis GI Medical History: Reports: Hx Ulcer Musculoskeltal Medical History: Denies Hx Gout, Denies Hx Muscle Weakness, Denies Hx Musculoskeletal Deformity, Denies Hx Musculoskeletal Trauma Psychiatric Medical History: Reports: Hx Anxiety, Hx Depression Past Surgical History: Reports: Hx Abdominal Surgery - GBP, Hx Section, Hx Cholecystectomy, Hx Gastric Bypass Surgery, Hx Tonsillectomy. Denies: Hx Hysterectomy - Immunizations Immunizations up to date: Yes Hx Diphtheria, Pertussis, Tetanus Vaccination: Yes - 2016 Physical Exam - Vital signs Vitals: Temp Pulse Resp BP Pulse Ox 99.1 F 102 H 20 95/63 L 96 10/11/19 09:10/11/19 09:10/11/19 09:10/11/19 09:10/11/19 09:31 Course - Vital Signs Vital signs: Temp Pulse Resp BP Pulse Ox 99.1 F 102 H 20 95/63 L 96 10/11/19 09:31 10/11/19 09:31 10/11/19 09:10/11/19 09:10/11/19 09:31 Doctor's Discharge - Discharge Referrals: AICHA MUÑIZ MD [Primary Care Provider] - Follow up as needed
[2019-10-11 10:26] LABS: ABSOLUTE EOSINOPHILS # (AUTO) 0.1 10^3/uL (0.0-0.6); ABSOLUTE LYMPHOCYTES (AUTO) 1.8 10^3/uL (0.5-4.7); ABSOLUTE MONOCYTES (AUTO) 0.6 10^3/uL (0.1-1.4); ABSOLUTE NEUT (AUTO) 5.7 10^3/uL (1.7-8.2); BASOPHILS % (AUTO) 0.5 % (0-2); EOSINOPHILS % (AUTO) 1.4 % (0-6); HEMATOCRIT 30.6 % (36.0-47.0); HEMOGLOBIN 10.4 g/dL (12.0-15.5); LYMPHOCYTES % (AUTO) 21.2 % (13-45); MEAN CORPUSCULAR HEMOGLOBIN 32.7 pg (27.0-33.4); MEAN CORPUSCULAR HGB CONC 33.9 g/dL (32.0-36.0); MEAN CORPUSCULAR VOLUME 97 fl (80-97); MONOCYTES % (AUTO) 7.9 % (3-13); RED BLOOD COUNT 3.17 10^6/uL (3.72-5.28); RED CELL DISTRIBUTION WIDTH 20.6 % (11.5-14.0); TOTAL CELLS COUNTED % (AUTO) 100 %; WHITE BLOOD COUNT 8.3 10^3/uL (4.0-10.5)
[2019-10-11 10:28] LABS: VENOUS BLOOD BASE EXCESS -4.3 mmol/L; VENOUS BLOOD HCO3 19.6 mmol/L (20-32); VENOUS BLOOD PCO2 31.8 mmHg (35-63); VENOUS BLOOD PH 7.41 (7.30-7.42)
[2019-10-11 10:31] LABS: PROTHROMBIN TIME 15.2 SEC (11.4-15.4)
[2019-10-11 10:50] LABS: ALBUMIN 3.3 g/dL (3.5-5.0); ALKALINE PHOSPHATASE 233 U/L (38-126); ANION GAP 12 (5-19); ASPARTATE AMINO TRANSFERASE 66 U/L (14-36); BILIRUBIN,DIRECT 0.1 mg/dL (0.0-0.4); BLOOD UREA NITROGEN 2 mg/dL (7-20); CALCIUM 9.2 mg/dL (8.4-10.2); CARBON DIOXIDE 20 mmol/L (22-30); CHLORIDE 105 mmol/L (98-107); GLUCOSE 192 mg/dL (75-110); POTASSIUM 3.2 mmol/L (3.6-5.0); TOTAL PROTEIN 8.3 g/dL (6.3-8.2)
[2019-10-11 10:57] LABS: PLATELET COUNT 90 10^3/uL (150-450)
[2019-10-11] MEDS ORDERED: NORMAL SALINE 1000 ML 1,000 ML IV ONE ×2 (11:21)
[2019-10-11] MEDS ORDERED: MORPHINE SULFATE 10 MG/ML INJ IV ONE ×2 (11:22→12:36)
[2019-10-11] MEDS ORDERED: VANCOMYCIN HCL INJ 1000 MG VIAL IV ONE (11:32)
[2019-10-11] MEDS ORDERED: PIPERACILLIN/TAZOBACTAM 3.375 GM VIAL IV ONE (11:33)
--- NOTE | 2019-10-11 13:41 | ER Document Report ---
ED General - General Chief Complaint: Abnormal Lab Results Stated Complaint: WEAKNESS Time Seen by Provider: 10/11/19 10:10 Primary Care Provider: AICHA MUÑIZ MD [[facility]] - Follow up as needed Information source: Patient TRAVEL OUTSIDE OF THE [place] IN LAST 30 DAYS: No - HPI Notes: Patient presents with right foot pain. She states she has had this pain for 2 to 3 days. It is constant. Is throbbing. Is severe. It radiates up her right leg. She is also noticed that her right leg is been swelling some. She states she has been keeping her appointments with surgery and wound care as scheduled. 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 She denies any vomiting diarrhea or fevers. She states she does drink rarely and last had alcohol 3 days ago. - Related Data Allergies/Adverse Reactions: fire ant Allergy (Severe, Verified 10/11/19 09:43) Anaphylaxis bee venom protein (honey bee) Allergy (Verified 10/11/19 09:43) morphine [Morphine] Allergy (Verified 10/11/19 09:43) nitrofurantoin macrocrystalline [From Macrobid] Allergy (Verified 10/11/19 09:43) Sulfa (Sulfonamide Antibiotics) Allergy (Verified 10/11/19 09:43) sulfamethoxazole [From Bactrim] Allergy (Verified 10/11/19 09:43) trimethoprim [From Bactrim] Allergy (Verified 10/11/19 09:43) Past Medical History - General Information source: Patient - Social History Smoking Status: Current Every Day Smoker Chew tobacco use (# tins/day): No Frequency of alcohol use: Occasional Drug Abuse: None Family History: Reviewed & Not Pertinent, CAD, Malignancy Patient has homicidal ideation: No - Past Medical History Cardiac Medical History: Reports: Hx Hypertension Pulmonary Medical History: Reports: Hx Asthma, Hx Bronchitis, Hx COPD Neurological Medical History: Denies: Hx Seizures Endocrine Medical History: Reports: Hx Diabetes Mellitus Type 1, Hx Diabetes Mellitus Type 2 Renal/ Medical History: Denies: Hx Peritoneal Dialysis GI Medical History: Reports: Hx Ulcer Musculoskeletal Medical History: Denies Hx Gout, Denies Hx Muscle Weakness, Denies Hx Musculoskeletal Deformity, Denies Hx Musculoskeletal Trauma Psychiatric Medical History: Reports: Hx Anxiety, Hx Depression Past Surgical History: Reports: Hx Abdominal Surgery - GBP, Hx Section, Hx Cholecystectomy, Hx Gastric Bypass Surgery, Hx Tonsillectomy. Denies: Hx Hysterectomy - Immunizations Immunizations up to date: Yes Hx Diphtheria, Pertussis, Tetanus Vaccination: Yes - 2017 Review of Systems - Review of Systems Constitutional: Malaise, Weakness. denies: Chills, Fever Cardiovascular: denies: Chest pain, Palpitations Respiratory: denies: Cough, Short of breath -: Yes All other systems reviewed and negative Physical Exam - Vital signs Vitals: Temp Pulse Resp BP Pulse Ox 99.1 F 102 H 20 95/63 L 96 10/11/19 09:31 10/11/19 09:31 10/11/19 09:31 10/11/19 09:31 10/11/19 09:31 Interpretation: Tachycardic - General General appearance: Appears well, Alert - HEENT Head: Normocephalic, Atraumatic Eyes: Normal Pupils: PERRL - Respiratory Respiratory status: No respiratory distress Chest status: Nontender Breath sounds: Normal Chest palpation: Normal - Cardiovascular Rhythm: Tachycardia Heart sounds: Normal auscultation Murmur: No - Abdominal Inspection: Normal Distension: No distension Bowel sounds: Normal Tenderness: Nontender Organomegaly: No organomegaly - Back Back: Normal, Nontender - Extremities General upper extremity: Normal inspection, Nontender, Normal color, Normal ROM, Normal temperature General lower extremity: Normal temperature, Other - Right foot has evidence of a previous partial amputation with a dressing in place. Dressing removed shows the wound at this time do not have any significant induration or discoloration. There is some mild hyperemia. No discharge from this wound. The right foot and leg however are diffusely swollen and minimally tender to palpation.. No: Yong's sign - Neurological Neuro grossly intact: Yes Cognition: Normal Orientation: AAOx4 Alize Coma Scale Eye Opening: Spontaneous Alize Coma Scale Verbal: Oriented Alize Coma Scale Motor: Obeys Commands [place] Coma Scale Total: 15 Speech: Normal Motor strength normal: LUE, RUE, LLE, RLE Sensory: Normal - Psychological Associated symptoms: Normal affect, Normal mood - Skin Skin Temperature: Warm Skin Moisture: Dry Skin Color: Normal Course - Re-evaluation Re-evalutation: 10/11/19 13:39 Patient presents with right foot pain swelling. She was here yesterday and apparently left without treatment due to the weight. She was called back today because her lactate was found to be elevated. X-ray from yesterday shows the patient have osteomyelitis in the right foot. This is despite patient being on outpatient antibiotics and going to wound care as well as seen in surgery. Since these outpatient measures have failed it seems prudent that she will require inpatient IV antibiotics and consultation. - Vital Signs Vital signs: Temp Pulse Resp BP Pulse Ox 99.1 F 102 H 15 112/68 98 10/11/19 09:31 10/11/19 09:31 10/11/19 11:01 10/11/19 11:00 10/11/19 11:01 - Laboratory Result Diagrams: 10/11/19 10:07 10/11/19 10:07 Laboratory results interpreted by me: 10/11/19 10/11/19 10/11/19 10:07 10:07 10:07 RBC 3.17 L Hgb 10.4 L Hct 30.6 L RDW 20.6 H Plt Count 90 L VBG pCO2 31.8 L VBG HCO3 19.6 L Potassium 3.2 L Carbon Dioxide 20 L BUN 2 L Glucose 192 H Lactic Acid AST 66 H Alkaline Phosphatase 233 H Total Protein 8.3 H Albumin 3.3 L 10/11/19 10:07 RBC Hgb Hct RDW Plt Count VBG pCO2 VBG HCO3 Potassium Carbon Dioxide BUN Glucose Lactic Acid 2.6 H AST Alkaline Phosphatase Total Protein Albumin - Diagnostic Test Radiology reviewed: Image reviewed, Reports reviewed Discharge - Discharge Clinical Impression: Osteomyelitis Qualifiers: Osteomyelitis type: other acute Osteomyelitis location: foot Laterality: right Qualified Code(s): M86.171 - Other acute osteomyelitis, right ankle and foot Condition: Serious Disposition: ADMITTED INPATIENT Admitting Provider: Heidi (Hospitalist) Unit Admitted: Medical Floor Referrals: AICHA MUÑIZ MD [[facility]] - Follow up as needed
[2019-10-11 15:23] LABS: URINE AMPHETAMINES SCREEN NEGATIVE; URINE BARBITURATES SCREEN NEGATIVE; URINE BENZODIAZEPINES SCREEN NEGATIVE; URINE COCAINE SCREEN NEGATIVE; URINE MARIJUANA (THC) SCREEN NEGATIVE; URINE METHADONE SCREEN NEGATIVE; URINE PHENCYCLIDINE SCREEN NEGATIVE
--- NOTE | 2019-10-11 15:35 | RADIOLOGY REPORT (SQ) ---
EXAM DESCRIPTION: VENOUS UNILATERAL LOWER IMAGES COMPLETED DATE/TIME: 10/11/2019 3:26 pm REASON FOR STUDY: right leg swelling/pain COMPARISON: None. TECHNIQUE: Dynamic and static de los santos scale and color images acquired of the right leg venous system. S elected spectral images acquired with additional compression and augmentation maneuvers. The contrala teral common femoral vein and saphenofemoral junction were also imaged. Images stored on PACS. LIMITATIONS: None. FINDINGS: COMMON FEMORAL: Normal phasicity, compression and augmentation. No visualized echogenic ma terial on de los santos scale. No defects on color images. FEMORAL: Normal compression and augmentation. No visualized echogenic material on de los santos scale. No defe cts on color images. POPLITEAL: Normal compression, augmentation. No visualized echogenic material on de los santos scale. No defec ts on color images. CALF VESSELS: Normal compression, augmentation. No visualized echogenic material on de los santos scale. No de fects on color images. GSV and SSV: Normal compression, augmentation. No visualized echogenic material on de los santos scale. No def ects on color images. ANY DEEP VENOUS INSUFFICIENCY: Not evaluated. ANY EVIDENCE OF POPLITEAL CYST: No. OTHER: No other significant finding. CONTRALATERAL COMMON FEMORAL VEIN AND SAPHENOFEMORAL JUNCTION: Normal phasicity, compression and augmentation. No visualized echogenic material on de los santos scale. No de fects on color images. IMPRESSION: NO EVIDENCE DVT OR SVT IN THE RIGHT LEG. TECHNICAL DOCUMENTATION: JOB ID: [id number] 2010 [employer]- All Rights Reserved Reading location - IP/workstation name: [email or web address]
[2019-10-11] MEDS ORDERED: ONDANSETRON 4 MG TAB.RAPDIS PO PRN (17:15)
[2019-10-11] MEDS ORDERED: IPRATROPIUM/ALBUTEROL 0.5-2.5 MG/3 ML AMPUL NEB PRN (17:15)
[2019-10-11] MEDS ORDERED: ONDANSETRON HCL INJ/PF 4 MG/2 ML SDV IV PRN (17:15)
[2019-10-11] MEDS ORDERED: ACETAMINOPHEN 325 MG TABLET PO PRN (17:15)
[2019-10-11] MEDS ORDERED: DEXTROSE 50%-WATER SYRINGE 25 GM/50 ML DOSE IV PRN (17:30)
[2019-10-11] MEDS ORDERED: DEXTROSE 50%-WATER SYRINGE 12.5 GM/25 ML DOSE IV PRN (17:30)
[2019-10-11] MEDS ORDERED: DEXTROSE 40% GEL 15 GM TUBE X 2 PO PRN (17:30)
[2019-10-11] MEDS ORDERED: GLUCAGON,HUMAN RECOMB 1 MG INJ IM PRN (17:30)
[2019-10-11] MEDS ORDERED: DEXTROSE 40% GEL 15 GM TUBE PO PRN (17:30)
--- NOTE | 2019-10-11 17:37 | PDOC H&P ---
History of Present Illness Admission Date/PCP: 10/11/19 14:05 History of Present Illness: JOVANNI RENTERIA is a 49 year old female who presents with a one-week history of progressive right foot pain with bloody pus and discharge draining from chronic wound has become acutely worse. 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 X-ray of the right foot showed osteomyelitis and general surgery was consulted who stated she would likely need some sort of amputation. She was started on IV antibiotics and admitted for surgical needs. Serum alcohol was 262 and UDS was positive for narcotics. Patient is followed by chronic pain management and she states she drinks 24 beers per day for several years. She states she has never gone through withdrawal but is starting to shake in the ER right now. She will be put on CIWA for alcohol withdrawal management. Other than right foot pain and her chronic pain overall she has no new complaints. Past Medical History Cardiac Medical History: Reports: Hypertension Pulmonary Medical History: Reports: Asthma, Bronchitis, Chronic Obstructive Pulmonary Disease (COPD) Neurological Medical History: Denies: Seizures Endocrine Medical History: Reports: Diabetes Mellitus Type 1, Diabetes Mellitus Type 2 Musculoskeltal Medical History: Denies: Gout Psychiatric Medical History: Reports: Depression Past Surgical History Past Surgical History: Reports: Section, Cholecystectomy, Gastric Bypass Surgery, Tonsillectomy Denies: Hysterectomy Social History Smoking Status: Current Every Day Smoker Electronic Cigarette use?: No Frequency of Alcohol Use: Heavy Hx Recreational Drug Use: No Drugs: None Hx Prescription Drug Abuse: No - Advance Directive Resuscitation Status: Do Not Resuscitate Surrogate healthcare decision maker:: Drew Dave Family History Family History: Reviewed & Not Pertinent, CAD, Malignancy Parental Family History Reviewed: Yes Children Family History Reviewed: Yes Sibling(s) Family History Reviewed.: Yes Medication/Allergy Home Medications: Escitalopram Oxalate [Lexapro] 40 mg PO DAILY 01/10/18 Oxycodone HCl [Oxycodone HCl 10 MG Tablet] 10 mg PO Q4HP PRN MDD 5 08/20/18 Buspirone HCl [Buspar 10 mg Tablet] 7.5 mg PO BID 07/28/19 Ergocalciferol (Vitamin D2) [Drisdol 50,000 unit (1.25MG) Capsule] 50,000 unit PO FR@1000 07/28/19 Furosemide [Lasix 40 mg Tablet] 40 mg PO Q2D 10/11/19 Glipizide [Glucotrol Xl 2.5 mg Tab.er] 2.5 mg PO ACBRKFST 10/11/19 Lurasidone HCl [Latuda] 20 mg PO DAILY 10/11/19 Morphine Sulfate [Ms-Contin Sr 15 mg Tablet] 15 mg PO Q6 10/11/19 Spironolactone [Aldactone 25 mg Tablet] 25 mg PO Q12 10/11/19 Trazodone HCl 150 mg PO QHS 10/11/19 Allergies/Adverse Reactions: fire ant Allergy (Severe, Verified 10/11/19 09:43) Anaphylaxis bee venom protein (honey bee) Allergy (Verified 10/11/19 09:43) morphine [Morphine] Allergy (Verified 10/11/19 09:43) nitrofurantoin macrocrystalline [From Macrobid] Allergy (Verified 10/11/19 09:43) Sulfa (Sulfonamide Antibiotics) Allergy (Verified 10/11/19 09:43) sulfamethoxazole [From Bactrim] Allergy (Verified 10/11/19 09:43) trimethoprim [From Bactrim] Allergy (Verified 10/11/19 09:43) Review of Systems All systems: reviewed and no additional remarkable complaints except as stated - Review systems per HPI, otherwise negative Physical Exam Vital Signs: Temp Pulse Resp BP Pulse Ox 99.1 F 102 H 15 112/68 98 10/11/19 09:31 10/11/19 09:31 10/11/19 11:01 10/11/19 11:00 10/11/19 11:01 Intake & Output 10/10/19 10/11/19 10/12/19 06:59 06:59 06:59 Intake Total 1000 Balance 1000 Weight 84.822 kg General appearance: PRESENT: no acute distress, well-developed, well-nourished Head exam: PRESENT: atraumatic, normocephalic Eye exam: PRESENT: conjunctiva pink. ABSENT: scleral icterus Mouth exam: PRESENT: moist Respiratory exam: PRESENT: clear to auscultation kristina. ABSENT: rales, rhonchi, wheezes Cardiovascular exam: PRESENT: RRR. ABSENT: diastolic murmur, rubs, systolic murmur GI/Abdominal exam: PRESENT: normal bowel sounds, soft. ABSENT: distended, guarding, mass, organolmegaly, rebound, tenderness Extremities exam: PRESENT: other - Right foot with large approximately 4 cm diameter diabetic foot ulcer Neurological exam: PRESENT: alert, awake, oriented to person, oriented to place, oriented to time, oriented to situation Psychiatric exam: PRESENT: appropriate affect, normal mood Skin exam: PRESENT: dry, warm Results Laboratory Results: 10/11/19 10:07 10/11/19 10:07 10/11/19 10/11/19 10/11/19 10:07 10:07 10:07 WBC 8.3 RBC 3.17 L Hgb 10.4 L Hct 30.6 L MCV 97 MCH 32.7 MCHC 33.9 RDW 20.6 H Plt Count 90 L Seg Neutrophils % 69.0 VBG pH 7.41 VBG pCO2 31.8 L VBG HCO3 19.6 L VBG Base Excess -4.3 Sodium 137.0 Potassium 3.2 L Chloride 105 Carbon Dioxide 20 L Anion Gap 12 BUN 2 L Creatinine 0.56 Est GFR ( Amer) > 60 Glucose 192 H Lactic Acid Calcium 9.2 Total Bilirubin 1.0 AST 66 H Alkaline Phosphatase 233 H Total Protein 8.3 H Albumin 3.3 L 10/11/19 10/11/19 10/11/19 10:07 13:31 16:15 WBC RBC Hgb Hct MCV MCH MCHC RDW Plt Count Seg Neutrophils % VBG pH VBG pCO2 VBG HCO3 VBG Base Excess Sodium Potassium Chloride Carbon Dioxide Anion Gap BUN Creatinine Est GFR ( Amer) Glucose Lactic Acid 2.6 H 2.1 1.7 Calcium Total Bilirubin AST Alkaline Phosphatase Total Protein Albumin Impressions: Venous Doppler Study 10/11/19 13:03 IMPRESSION: NO EVIDENCE DVT OR SVT IN THE RIGHT LEG. Assessment and Plan - Diagnosis (1) Osteomyelitis Qualifiers: Osteomyelitis type: other acute Osteomyelitis location: foot Laterality: right Qualified Code(s): M86.171 - Other acute osteomyelitis, right ankle and foot Is this a current diagnosis for this admission?: Yes Plan: Family history of progressive bloody purulent drainage from right foot wound Started on IV vancomycin/Zosyn Blood culture sent General surgery consulted for likely amputation Right foot x-ray showed suspected osteomyelitis (2) Diabetic foot ulcer associated with type 2 diabetes mellitus Is this a current diagnosis for this admission?: Yes Plan: As above (3) Chronic narcotic dependence Is this a current diagnosis for this admission?: Yes Plan: Per patient, takes long-acting morphine, short acting narcotics, and takes a fentanyl patch 25 mcg Home medications continued the patient does not wear a fentanyl patch on exam and this is not new medication history. We will need to confirm that she uses this before continuing it (4) COPD (chronic obstructive pulmonary disease) Is this a current diagnosis for this admission?: Yes Plan: No acute exacerbation Home inhalers continue As needed duo nebs available (5) JENNIFER (obstructive sleep apnea) Is this a current diagnosis for this admission?: Yes Plan: Okay for RT to give CPAP or for patient to use her own (6) Depression Qualifiers: Is this a current diagnosis for this admission?: Yes (7) Diabetes type 2, controlled Qualifiers: Is this a current diagnosis for this admission?: Yes Plan: Accu-Cheks Sliding scale insulin Continue home oral meds (8) Alcohol withdrawal Qualifiers: Complication of substance-induced condition: uncomplicated Qualified Code(s): F10.230 - Alcohol dependence with withdrawal, uncomplicated Is this a current diagnosis for this admission?: Yes Plan: Per patient never has had withdrawal in the past CIWA protocol As needed IV Ativan available Counseled on cessation Drinks 24 beers per day - Time Time Spent with patient: 35 or more minutes Smoking Cessation Education: 3 to 10 minutes Medications reviewed and adjusted accordingly: Yes Anticipated Discharge Disposition: Home with Home Health Anticipated Discharge: Other - Within 7 days - Inpatient Certification Based on my medical assessment, after consideration of the patient's comorbidities, presenting symptoms, or acuity I expect that the services needed warrant INPATIENT care.: Yes I certify that my determination is in accordance with my understanding of Medicare's requirements for reasonable and necessary INPATIENT services [42 CFR 412.3e].: Yes Medical Necessity: Significant Comorbidiites Make Outpatient Treatment Too Risky, Need Close Monitoring Due to Risk of Patient Decompensation, Need for IV Antibiotics, Need for Surgery, Risk of Complication if Not Cared For in Hospital, Risk of Diagnosis Which Will Require Inpatient Eval/Care/Monitoring
--- NOTE | 2019-10-11 17:37 | ADVANCED CARE ---
- Diagnosis (1) Osteomyelitis Diagnosis Current: Yes (2) Diabetic foot ulcer associated with type 2 diabetes mellitus Diagnosis Current: Yes (3) Chronic narcotic dependence Diagnosis Current: Yes (4) COPD (chronic obstructive pulmonary disease) Diagnosis Current: Yes (5) JENNIFER (obstructive sleep apnea) Diagnosis Current: Yes (6) Depression Diagnosis Current: Yes (7) Diabetes type 2, controlled Diagnosis Current: Yes (8) Alcohol withdrawal Diagnosis Current: Yes Attendance: Patient Resuscitation Status: Do Not Resuscitate Discussion: All aspects of code status discussed with patient/POA including cardioversion, chest compressions, and intubation and the patient/POA indicated they wish to be DNR/DNI MPOA is designated as: Drew Dave Time Spent: Greater than 17 minutes
[2019-10-11] MEDS ORDERED: PIPERACILLIN/TAZOBACTAM 3.375 GM VIAL IV SCH (18:00)
[2019-10-11] MEDS: MORPHINE SULFATE SR 15 MG TABLET PO SCH (18:00)
[2019-10-11] MEDS ORDERED: BUSPIRONE HCL 10 MG TABLET PO SCH (18:00)
[2019-10-11 18:45] LABS: ANION GAP 9 (5-19); CALCIUM 8.3 mg/dL (8.4-10.2); CARBON DIOXIDE 20 mmol/L (22-30); CHLORIDE 106 mmol/L (98-107); GLUCOSE 140 mg/dL (75-110); POTASSIUM 3.2 mmol/L (3.6-5.0)
[2019-10-11 18:48] LABS: BLOOD UREA NITROGEN < 2 mg/dL (7-20)
[2019-10-11] MEDS: FUROSEMIDE 40 MG TABLET PO SCH (18:53)
[2019-10-11] MEDS ORDERED: LORAZEPAM 1 MG TABLET PO ONE (18:58)
[2019-10-11] MEDS: TRAZODONE HCL 50 MG TABLET PO SCH (23:02)
[2019-10-11] MEDS: OXYCODONE HCL IR 5 MG TABLET PO PRN (23:03)
[2019-10-11] MEDS: SPIRONOLACTONE 25 MG TABLET PO SCH (23:03)
[2019-10-11] MEDS: INSULIN LISPRO 100 UNIT/ML 3 ML VIAL SUBCUT SCH (23:17)
[2019-10-12] MEDS: PIPERACILLIN SODIUM/TAZOBACTAM 3.375 GM in NORMAL SALINE 100 ML IV SCH ×5 (00:09→23:10)
[2019-10-12] MEDS: MORPHINE SULFATE SR 15 MG TABLET PO SCH ×5 (00:10→23:10)
[2019-10-12] MEDS: OXYCODONE HCL IR 5 MG TABLET PO PRN ×2 (02:52→09:49)
[2019-10-12] MEDS: VANCOMYCIN HCL 1,250 MG in DEXTROSE 5%-WATER 250 ML IV SCH ×2 (06:20→20:31)
[2019-10-12 06:52] LABS: HEMATOCRIT 23.8 % (36.0-47.0); MEAN CORPUSCULAR HEMOGLOBIN 33.3 pg (27.0-33.4); MEAN CORPUSCULAR HGB CONC 34.5 g/dL (32.0-36.0); MEAN CORPUSCULAR VOLUME 96 fl (80-97); RED BLOOD COUNT 2.47 10^6/uL (3.72-5.28); RED CELL DISTRIBUTION WIDTH 20.5 % (11.5-14.0)
[2019-10-12 07:07] LABS: PHOSPHORUS 3.1 mg/dL (2.5-4.5)
[2019-10-12 07:20] LABS: HEMOGLOBIN 8.2 g/dL (12.0-15.5); PLATELET COUNT 63 10^3/uL (150-450)
--- NOTE | 2019-10-12 08:34 | EKG REPORT ---
SEVERITY:- OTHERWISE NORMAL ECG - SINUS TACHYCARDIA : Confirmed by: Tresa Mayer MD 12-Oct-2019 08:33:26
[2019-10-12] MEDS: INSULIN LISPRO 100 UNIT/ML 3 ML VIAL SUBCUT SCH ×4 (09:40→23:11)
[2019-10-12] MEDS: GLIPIZIDE XL 2.5 MG TAB.ER.24 PO SCH (09:41)
[2019-10-12] MEDS: SPIRONOLACTONE 25 MG TABLET PO SCH ×2 (09:45→23:10)
[2019-10-12] MEDS: DOCUSATE SODIUM 100 MG/10 ML UDC PO SCH (09:46)
[2019-10-12] MEDS: ESCITALOPRAM OXALATE 10 MG TABLET PO SCH (09:46)
[2019-10-12] MEDS: ENOXAPARIN SODIUM INJ 40 MG/0.4 ML DISP.SYRIN SUBCUT SCH (09:51)
[2019-10-12] MEDS ORDERED: VANCOMYCIN HCL INJ 1000 MG VIAL IV SCH (10:00)
[2019-10-12] MEDS ORDERED: (PENDING PHARMACY ID) (Escitalopram Oxalate [Lexapro] 40 MG) PO SCH (10:00)
[2019-10-12] MEDS ORDERED: (PENDING PHARMACY ID) (Lurasidone Hcl [Latuda] 20 MG) PO SCH (10:00)
[2019-10-12] MEDS: LORAZEPAM INJ 2 MG/1 ML VIAL IV PRN ×2 (16:12→20:24)
[2019-10-12 18:27] LABS: BLOOD UREA NITROGEN 4 mg/dL (7-20); CALCIUM 8.7 mg/dL (8.4-10.2); CARBON DIOXIDE 24 mmol/L (22-30); CHLORIDE 101 mmol/L (98-107); GLUCOSE 148 mg/dL (75-110); POTASSIUM 3.4 mmol/L (3.6-5.0)
--- NOTE | 2019-10-12 18:30 | PDOC PROGRESS REPORT ---
Subjective Progress Note for:: 10/12/19 Subjective:: 10/12/2019 Patient has mildly low potassium which we will replete and her lactic acid is notably lower today. She seems to be improved although she still has some trem ulousness which she states is helped greatly by Ativan. She continues on CIWA protocol. Blood cultures are pending. General surgery is evaluating the patient and will determine when she will go to surgery. I discussed the case with them today. Other than tremulousness and some pain in her right foot patient has no new complaints. Reason For Visit: OSTEOMYELITIS RIGHT FOOT, DM ULCER Physical Exam Vital Signs: Temp Pulse Resp BP Pulse Ox 98.9 F 101 H 18 118/64 96 10/12/19 15:36 10/12/19 16:33 10/12/19 16:33 10/12/19 15:36 10/12/19 16:33 Intake & Output 10/11/19 10/12/19 10/13/19 06:59 06:59 06:59 Intake Total 2440 350 Output Total 350 Balance 2090 350 Weight 84.822 kg 85.2 kg General appearance: PRESENT: no acute distress, well-developed, well-nourished Head exam: PRESENT: atraumatic, normocephalic Eye exam: PRESENT: conjunctiva pink Mouth exam: PRESENT: moist Respiratory exam: PRESENT: clear to auscultation kristina. ABSENT: rales, rhonchi, wheezes Cardiovascular exam: PRESENT: RRR. ABSENT: diastolic murmur, rubs, systolic murmur GI/Abdominal exam: PRESENT: normal bowel sounds, soft. ABSENT: distended, guarding, mass, organolmegaly, rebound, tenderness Neurological exam: PRESENT: alert, awake, oriented to person, oriented to place, oriented to time, oriented to situation Psychiatric exam: PRESENT: anxious, normal mood Skin exam: PRESENT: dry, erythema, warm, other - Right foot ulcer with some purulent material sticking to the bandage today, appears to be approximately the same as yesterday perhaps a bit less erythematous Results Laboratory Results: 10/12/19 05:32 10/11/19 10/12/19 10/12/19 18:00 05:32 05:32 WBC 6.0 RBC 2.47 L Hgb 8.2 L D Hct 23.8 L MCV 96 MCH 33.3 MCHC 34.5 RDW 20.5 H Plt Count 63 L Sodium 135.2 L Potassium 3.2 L Chloride 106 Carbon Dioxide 20 L Anion Gap 9 BUN < 2 L Creatinine 0.52 Est GFR ( Amer) > 60 Glucose 140 H Calcium 8.3 L Phosphorus 3.1 Magnesium 1.4 L Impressions: Venous Doppler Study 10/11/19 13:03 IMPRESSION: NO EVIDENCE DVT OR SVT IN THE RIGHT LEG. Assessment and Plan - Diagnosis (1) Osteomyelitis Qualifiers: Osteomyelitis type: other acute Osteomyelitis location: foot Laterality: right Qualified Code(s): M86.171 - Other acute osteomyelitis, right ankle and foot Is this a current diagnosis for this admission?: Yes Plan: Family history of progressive bloody purulent drainage from right foot wound Started on IV vancomycin/Zosyn Blood culture sent General surgery consulted for likely amputation Right foot x-ray showed suspected osteomyelitis 10/03/2021 General surgery evaluating the patient will determine the timing of her surgery Antibiotics continue Cultures pending (2) Diabetic foot ulcer associated with type 2 diabetes mellitus Is this a current diagnosis for this admission?: Yes Plan: As above (3) Chronic narcotic dependence Is this a current diagnosis for this admission?: Yes (4) COPD (chronic obstructive pulmonary disease) Is this a current diagnosis for this admission?: Yes (5) JENNIFER (obstructive sleep apnea) Is this a current diagnosis for this admission?: Yes (6) Depression Qualifiers: Is this a current diagnosis for this admission?: Yes (7) Diabetes type 2, controlled Qualifiers: Is this a current diagnosis for this admission?: Yes (8) Alcohol withdrawal Qualifiers: Complication of substance-induced condition: uncomplicated Qualified Code(s): F10.230 - Alcohol dependence with withdrawal, uncomplicated Is this a current diagnosis for this admission?: Yes Plan: Per patient never has had withdrawal in the past [place] protocol As needed IV Ativan available Counseled on cessation Drinks 24 beers per day 10/12/2019 Still tremulous but states Ativan is helping this - Time Time Spent with patient: 25-34 minutes Medications reviewed and adjusted accordingly: Yes Anticipated Discharge Disposition: [facility] Facility Anticipated Discharge Timeframe: When surgery is completed - Inpatient Certification Based on my medical assessment, after consideration of the patient's comorbidities, presenting symptoms, or acuity I expect that the services needed warrant INPATIENT care.: Yes I certify that my determination is in accordance with my understanding of Medicare's requirements for reasonable and necessary INPATIENT services [42 CFR 412.3e].: Yes Medical Necessity: Significant Comorbidiites Make Outpatient Treatment Too Risky, Need Close Monitoring Due to Risk of Patient Decompensation, Need for IV Antibiotics, Need for Surgery, Risk of Complication if Not Cared For in Hospital, Risk of Diagnosis Which Will Require Inpatient Eval/Care/Monitoring
[2019-10-12 18:33] LABS: ANION GAP 4 (5-19)
--- NOTE | 2019-10-12 22:29 | PDOC CONSULTATION ---
Consultation Consult Date: 10/12/19 Provider Consulted: SURGICAL SURGICALIST History of Present Illness Admission Date/PCP: 10/11/19 14:05 History of Present Illness: JOVANNI RENTERIA is a 49 year old female seen in consultation at the request of the hospitalist service. This is a patient who has been seen by surgery service in the past. She is a diabetic, who is noncompliant. Currently she is undergoing alcohol withdrawals and delirium tremens. She reports a nonhealing ulcer to her foot, that has been present for many weeks. She has pain and erythema at the site. She rates her pain as 5 out of 10. It does not radiate. Nothing makes it better. Palpation and ambulation make it worse. She also reports some purulent drainage. She denies fevers or chills. She does report tremors, headache, nausea. She denies chest pain, orthostasis, blurry vision, or shortness of breath. Past Medical History Cardiac Medical History: Reports: Hypertension Pulmonary Medical History: Reports: Asthma, Bronchitis, Chronic Obstructive Pulmonary Disease (COPD) Neurological Medical History: Denies: Seizures Endocrine Medical History: Reports: Diabetes Mellitus Type 1, Diabetes Mellitus Type 2 Musculoskeltal Medical History: Denies: Gout Psychiatric Medical History: Reports: Alcohol Dependency, Depression Past Surgical History Past Surgical History: Reports: Section, Cholecystectomy, Gastric Bypass Surgery, Tonsillectomy Denies: Hysterectomy Social History Smoking Status: Current Every Day Smoker Cigarettes Packs Per Day: 1 Electronic Cigarette use?: No Cigars Per Day: 0 Pipes Per Day: 0 Number of Years Smokin Last Time Smoked: 10/11/2019 Frequency of Alcohol Use: Heavy Hx Recreational Drug Use: No Drugs: None Hx Prescription Drug Abuse: No - Advance Directive Resuscitation Status: Do Not Resuscitate Family History Family History: CAD, Malignancy Parental Family History Reviewed: Yes Children Family History Reviewed: Yes Sibling(s) Family History Reviewed.: Yes Medication/Allergy Home Medications: Escitalopram Oxalate [Lexapro] 40 mg PO DAILY 01/10/18 Oxycodone HCl [Oxycodone HCl 10 MG Tablet] 10 mg PO Q4HP PRN MDD 5 08/20/18 Buspirone HCl [Buspar 10 mg Tablet] 7.5 mg PO BID 07/28/19 Ergocalciferol (Vitamin D2) [Drisdol 50,000 unit (1.25MG) Capsule] 50,000 unit PO FR@1000 07/28/19 Furosemide [Lasix 40 mg Tablet] 40 mg PO Q2D 10/11/19 Glipizide [Glucotrol Xl 2.5 mg Tab.er] 2.5 mg PO ACBRKFST 10/11/19 Lurasidone HCl [Latuda] 20 mg PO DAILY 10/11/19 Morphine Sulfate [Ms-Contin Sr 15 mg Tablet] 15 mg PO Q6 10/11/19 Spironolactone [Aldactone 25 mg Tablet] 25 mg PO Q12 10/11/19 Trazodone HCl 150 mg PO QHS 10/11/19 Allergies/Adverse Reactions: fire ant Allergy (Severe, Verified 10/11/19 09:43) Anaphylaxis bee venom protein (honey bee) Allergy (Verified 10/11/19 09:43) nitrofurantoin macrocrystalline [From Macrobid] Allergy (Verified 10/11/19 09:43) Sulfa (Sulfonamide Antibiotics) Allergy (Verified 10/11/19 09:43) sulfamethoxazole [From Bactrim] Allergy (Verified 10/11/19 09:43) trimethoprim [From Bactrim] Allergy (Verified 10/11/19 09:43) Review of Systems Constitutional: PRESENT: fatigue. ABSENT: fever(s) Eyes: ABSENT: visual disturbances Ears: ABSENT: hearing changes Nose, Mouth, and Throat: ABSENT: sore throat Cardiovascular: ABSENT: chest pain Respiratory: ABSENT: cough Gastrointestinal: PRESENT: nausea. ABSENT: abdominal pain, melena Genitourinary: ABSENT: dysuria Musculoskeletal: ABSENT: back pain Integumentary: PRESENT: erythema - Right foot, wounds - Large ulcer to the right foot with small amounts of drainage Neurological: PRESENT: tremor(s). ABSENT: confusion Psychiatric: PRESENT: anxiety, depression Endocrine: ABSENT: cold intolerance, heat intolerance Hematologic/Lymphatic: ABSENT: easy bleeding, easy bruising Physical Exam Vital Signs: Temp Pulse Resp BP Pulse Ox 98.6 F 93 19 120/67 100 10/12/19 20:03 10/12/19 20:03 10/12/19 20:03 10/12/19 20:03 10/12/19 20:03 Intake & Output 10/11/19 10/12/19 10/13/19 06:59 06:59 06:59 Intake Total 2440 350 Output Total 350 Balance 2090 350 Weight 84.822 kg 85.2 kg General appearance: PRESENT: mild distress - Tremors and irritability Head exam: PRESENT: atraumatic, normocephalic Eye exam: PRESENT: EOMI, PERRLA. ABSENT: scleral icterus Mouth exam: PRESENT: moist, neck supple Neck exam: ABSENT: meningismus, tenderness, thyromegaly, tracheal deviation, tracheostomy Respiratory exam: PRESENT: unlabored. ABSENT: tachypnea, wheezes Cardiovascular exam: ABSENT: tachycardia Pulses: PRESENT: normal radial pulses Vascular exam: PRESENT: normal capillary refill GI/Abdominal exam: PRESENT: soft. ABSENT: distended, firm, rebound, tenderness Rectal exam: PRESENT: deferred Extremities exam: PRESENT: other - Large ulceration to the plantar surface of the right foot, laterally. Tenderness to palpation. Erythema and purulent drainage present. Musculoskeletal exam: PRESENT: tenderness - Right foot Neurological exam: PRESENT: alert, awake, oriented to person, oriented to place, oriented to time, oriented to situation Psychiatric exam: PRESENT: agitated Focused psych exam: ABSENT: delusional Skin exam: PRESENT: erythema - See extremity exam. ABSENT: jaundice Results Laboratory Results: 10/12/19 05:32 10/12/19 17:44 10/12/19 10/12/19 10/12/19 05:32 05:32 17:44 WBC 6.0 RBC 2.47 L Hgb 8.2 L D Hct 23.8 L MCV 96 MCH 33.3 MCHC 34.5 RDW 20.5 H Plt Count 63 L Sodium 129.1 L Potassium 3.4 L Chloride 101 Carbon Dioxide 24 Anion Gap 4 L BUN 4 L Creatinine 0.58 Est GFR ( Amer) > 60 Glucose 148 H Calcium 8.7 Phosphorus 3.1 Magnesium 1.4 L Impressions: Venous Doppler Study 10/11/19 13:03 IMPRESSION: NO EVIDENCE DVT OR SVT IN THE RIGHT LEG. Assessment & Plan - Diagnosis (1) Alcohol withdrawal Qualifiers: Complication of substance-induced condition: uncomplicated Qualified Code(s): F10.230 - Alcohol dependence with withdrawal, uncomplicated Is this a current diagnosis for this admission?: Yes (2) Diabetic foot ulcer associated with type 2 diabetes mellitus Qualifiers: Diabetic foot ulcer location: midfoot Laterality: right Is this a current diagnosis for this admission?: Yes (3) Osteomyelitis Qualifiers: Osteomyelitis type: other acute Osteomyelitis location: foot Laterality: right Qualified Code(s): M86.171 - Other acute osteomyelitis, right ankle and foot Is this a current diagnosis for this admission?: Yes - Plan Summary Plan Summary: This is a 49-year-old female currently in delirium tremens who is an uncontrolled diabetic. She has a large ulcer to the right lateral plantar foot. She has evidence of osteomyelitis involving the fifth metatarsal as well as the fourth phalanx and fourth metatarsal. The patient has previously undergone amputation of her left fifth toe. She has a large wound in this area and soft tissue defect. In my opinion, below-knee amputation is the best course of action, due to her noncompliance and continued struggles with infection. The p atient has adamantly declined below-knee amputation. At minimum, the patient will require amputation of the fourth toe, fourth metatarsal, and remainder of the fifth metatarsal. There will also likely be a large soft tissue defect. I believe below-knee amputation will eventually be unavoidable. We will proceed with testing for COVID-19. She should continue with treatment for her delirium tremens. Plan for surgical intervention once her COVID testing is back. Surgery will continue to follow with you.
[2019-10-12] MEDS: TRAZODONE HCL 50 MG TABLET PO SCH (23:09)
[2019-10-13 06:28] LABS: HEMATOCRIT 22.4 % (36.0-47.0); MEAN CORPUSCULAR HEMOGLOBIN 33.9 pg (27.0-33.4); MEAN CORPUSCULAR HGB CONC 34.9 g/dL (32.0-36.0); MEAN CORPUSCULAR VOLUME 97 fl (80-97); RED BLOOD COUNT 2.31 10^6/uL (3.72-5.28); RED CELL DISTRIBUTION WIDTH 20.8 % (11.5-14.0); WHITE BLOOD COUNT 5.8 10^3/uL (4.0-10.5)
[2019-10-13] MEDS: MORPHINE SULFATE SR 15 MG TABLET PO SCH ×4 (06:36→23:10)
[2019-10-13] MEDS: PIPERACILLIN SODIUM/TAZOBACTAM 3.375 GM in NORMAL SALINE 100 ML IV SCH ×4 (06:37→23:47)
[2019-10-13] MEDS: LORAZEPAM INJ 2 MG/1 ML VIAL IV PRN (06:43)
[2019-10-13 06:48] LABS: VANCOMYCIN,TROUGH 15.8 ug/mL (5.0-20.0)
[2019-10-13 06:56] LABS: HEMOGLOBIN 7.8 g/dL (12.0-15.5); PLATELET COUNT 69 10^3/uL (150-450)
[2019-10-13] MEDS: INSULIN LISPRO 100 UNIT/ML 3 ML VIAL SUBCUT SCH ×4 (08:26→21:42)
[2019-10-13] MEDS: GLIPIZIDE XL 2.5 MG TAB.ER.24 PO SCH (08:39)
--- NOTE | 2019-10-13 09:49 | PDOC PROGRESS REPORT ---
Subjective Progress Note for:: 10/13/19 Subjective:: Patient is alert and cooperative. Reason For Visit: OSTEOMYELITIS RIGHT FOOT, DM ULCER Physical Exam Vital Signs: Temp Pulse Resp BP Pulse Ox 98.4 F 97 16 124/78 95 10/13/19 07:13 10/13/19 09:28 10/13/19 09:28 10/13/19 07:13 10/13/19 09:28 Intake & Output 10/12/19 10/13/19 10/14/19 06:59 06:59 06:59 Intake Total 2440 1240 Output Total 350 350 Balance 2090 890 Weight 84.822 kg 86 kg General appearance: PRESENT: no acute distress, cooperative Cardiovascular exam: PRESENT: RRR Extremities exam: PRESENT: other - Right foot laterally with a large ulcer with a small opening with no active drainage. There is diffuse subtle erythema. Results Laboratory Results: 10/13/19 05:32 10/12/19 17:44 10/12/19 10/13/19 17:44 05:32 WBC 5.8 RBC 2.31 L Hgb 7.8 L Hct 22.4 L MCV 97 MCH 33.9 H MCHC 34.9 RDW 20.8 H Plt Count 69 L Sodium 129.1 L Potassium 3.4 L Chloride 101 Carbon Dioxide 24 Anion Gap 4 L BUN 4 L Creatinine 0.58 Est GFR ( Amer) > 60 Glucose 148 H Calcium 8.7 Impressions: Venous Doppler Study 10/11/19 13:03 IMPRESSION: NO EVIDENCE DVT OR SVT IN THE RIGHT LEG. Assessment & Plan - Diagnosis (1) Osteomyelitis Qualifiers: Osteomyelitis type: other acute Osteomyelitis location: foot Laterality: right Qualified Code(s): M86.171 - Other acute osteomyelitis, right ankle and foot Is this a current diagnosis for this admission?: Yes Plan: Patient with osteomyelitis of the fourth toe and metatarsal as well as the fifth metatarsal with associated nonhealing ulcer. Patient is still resistant to a below-knee amputation. But she is willing to undergo fourth toe amputation along with resection of her fourth and fifth metatarsal. Patient is not septic and we will still await her COVID testing prior to taking her to surgery. Her alcohol withdrawal treatment appears to be progressing well. We will make the patient n.p.o. for possible surgery tomorrow if COVID testing returns. - Time Critical Time spent with patient: Less than 15 minutes Anticipated Discharge Disposition: Home with Home Health Anticipated Discharge Timeframe: days
[2019-10-13] MEDS: VANCOMYCIN HCL 1,250 MG in DEXTROSE 5%-WATER 250 ML IV SCH (10:25)
[2019-10-13] MEDS: ENOXAPARIN SODIUM INJ 40 MG/0.4 ML DISP.SYRIN SUBCUT SCH (10:28)
[2019-10-13] MEDS: DOCUSATE SODIUM 100 MG/10 ML UDC PO SCH (10:29)
[2019-10-13] MEDS: ESCITALOPRAM OXALATE 10 MG TABLET PO SCH (10:30)
[2019-10-13] MEDS: SPIRONOLACTONE 25 MG TABLET PO SCH ×2 (10:30→21:43)
[2019-10-13] MEDS: VANCOMYCIN HCL 1,500 MG in DEXTROSE 5%-WATER 250 ML IV SCH ×2 (10:30→21:42)
[2019-10-13 17:51] LABS: BLOOD UREA NITROGEN 5 mg/dL (7-20); CALCIUM 9.1 mg/dL (8.4-10.2); CHLORIDE 102 mmol/L (98-107); GLUCOSE 122 mg/dL (75-110); POTASSIUM 4.1 mmol/L (3.6-5.0)
[2019-10-13] MEDS: FUROSEMIDE 40 MG TABLET PO SCH (17:54)
[2019-10-13 17:57] LABS: CARBON DIOXIDE 24 mmol/L (22-30)
[2019-10-13 17:58] LABS: ANION GAP 6 (5-19)
--- NOTE | 2019-10-13 18:18 | PDOC PROGRESS REPORT ---
Subjective Progress Note for:: 10/13/19 Subjective:: 10/12/2019 Patient has mildly low potassium which we will replete and her lactic acid is notably lower today. She seems to be improved although she still has some trem ulousness which she states is helped greatly by Ativan. She continues on CIWA protocol. Blood cultures are pending. General surgery is evaluating the patient and will determine when she will go to surgery. I discussed the case with them today. Other than tremulousness and some pain in her right foot patient has no new complaints. 10/13/2019 Patient appears to be comfortable and sleeping in bed during encounter. She is arousable but quickly goes back to sleep. Wound is perhaps healing slightly but infection not be controlled without definitive surgical management. Appreciate general surgery following with us and planning out her surgical course. COVID- 19 testing is still pending and once this is back she will likely be appropriate for the OR if surgery agrees. Continuing IV antibiotics and pain management. Continuing CIWA protocol for alcohol withdrawal which appears to be quite effective. Patient does not express any new complaints other than right foot pain. Reason For Visit: OSTEOMYELITIS RIGHT FOOT, DM ULCER Physical Exam Vital Signs: Temp Pulse Resp BP Pulse Ox 98.4 F 96 19 115/68 97 10/13/19 17:02 10/13/19 17:02 10/13/19 17:02 10/13/19 17:02 10/13/19 17:02 Intake & Output 10/12/19 10/13/19 10/14/19 06:59 06:59 06:59 Intake Total 2440 1240 200 Output Total 350 350 Balance 2090 890 200 Weight 84.822 kg 86 kg 86 kg General appearance: PRESENT: no acute distress, well-developed, well-nourished Head exam: PRESENT: atraumatic, normocephalic Eye exam: PRESENT: conjunctiva pink. ABSENT: scleral icterus Mouth exam: PRESENT: moist Respiratory exam: PRESENT: clear to auscultation kristina. ABSENT: rales, rhonchi, wheezes Cardiovascular exam: PRESENT: RRR. ABSENT: diastolic murmur, rubs, systolic murmur GI/Abdominal exam: PRESENT: normal bowel sounds, soft. ABSENT: distended, guarding, mass, organolmegaly, rebound, tenderness Extremities exam: PRESENT: other - Right foot diabetic ulcer still open with some mild purulent material on the wound, tender Neurological exam: PRESENT: alert, awake Psychiatric exam: PRESENT: appropriate affect, normal mood Skin exam: PRESENT: dry, warm Results Laboratory Results: 10/13/19 05:32 10/13/19 17:18 10/12/19 10/13/19 10/13/19 17:44 05:32 17:18 WBC 5.8 RBC 2.31 L Hgb 7.8 L Hct 22.4 L MCV 97 MCH 33.9 H MCHC 34.9 RDW 20.8 H Plt Count 69 L Sodium 129.1 L 131.7 L Potassium 3.4 L 4.1 Chloride 101 102 Carbon Dioxide 24 24 Anion Gap 4 L 6 BUN 4 L 5 L Creatinine 0.58 0.70 Est GFR ( Amer) > 60 > 60 Glucose 148 H 122 H Calcium 8.7 9.1 Impressions: Venous Doppler Study 10/11/19 13:03 IMPRESSION: NO EVIDENCE DVT OR SVT IN THE RIGHT LEG. Assessment and Plan - Diagnosis (1) Osteomyelitis Qualifiers: Osteomyelitis type: other acute Osteomyelitis location: foot Laterality: right Qualified Code(s): M86.171 - Other acute osteomyelitis, right ankle and foot Is this a current diagnosis for this admission?: Yes Plan: 10/12/2019 Patient with osteomyelitis of the fourth toe and metatarsal as well as the fifth metatarsal with associated nonhealing ulcer. Patient is still resistant to a below-knee amputation. But she is willing to undergo fourth toe amputation along with resection of her fourth and fifth metatarsal. Patient is not septic and we will still await her COVID testing [place] or to taking her to surgery. Her alcohol withdrawal treatment appears to be progressing well. We will make the patient n.p.o. for possible surgery tomorrow if COVID testing returns. 10/13/2019 Still await COVID testing for patient to be appropriate for OR per general surgery General surgery still following, patient prefers to have foot preserving surgery although surgeon told patient she will likely need a BKA in the future despite conservative surgery now. Patient does not want BKA at this time Antibiotics continue (2) Diabetic foot ulcer associated with type 2 diabetes mellitus Qualifiers: Diabetic foot ulcer location: midfoot Laterality: right Is this a current diagnosis for this admission?: Yes Plan: As above (3) Chronic narcotic dependence Is this a current diagnosis for this admission?: Yes (4) COPD (chronic obstructive pulmonary disease) Is this a current diagnosis for this admission?: Yes (5) JENNIFER (obstructive sleep apnea) Is this a current diagnosis for this admission?: Yes (6) Depression Qualifiers: Is this a current diagnosis for this admission?: Yes (7) Diabetes type 2, controlled Qualifiers: Is this a current diagnosis for this admission?: Yes (8) Alcohol withdrawal Qualifiers: Complication of substance-induced condition: uncomplicated Qualified Code(s): F10.230 - Alcohol dependence with withdrawal, uncomplicated Is this a current diagnosis for this admission?: Yes Plan: Per patient never has had withdrawal in the past CIWA protocol As needed IV Ativan available Counseled on cessation Drinks 24 beers per day 10/12/2019 Still tremulous but states Ativan is helping this 10/13/2019 Alcohol withdrawal seems to be leveling off and resolving Continue CIWA - Time Time Spent with patient: 15-24 minutes Medications reviewed and adjusted accordingly: Yes Anticipated Discharge Disposition: [facility] Facility Anticipated Discharge Timeframe: within 72 hours - Inpatient Certification Based on my medical assessment, after consideration of the patient's comorbidities, presenting symptoms, or acuity I expect that the services needed warrant INPATIENT care.: Yes I certify that my determination is in accordance with my understanding of Medicare's requirements for reasonable and necessary INPATIENT services [42 CFR 412.3e].: Yes Medical Necessity: Significant Comorbidiites Make Outpatient Treatment Too Risky, Need Close Monitoring Due to Risk of Patient Decompensation, Need for IV Antibiotics, Risk of Complication if Not Cared For in Hospital, Risk of Diagnosis Which Will Require Inpatient Eval/Care/Monitoring
[2019-10-13] MEDS: OXYCODONE HCL IR 5 MG TABLET PO PRN (21:43)
[2019-10-13] MEDS: TRAZODONE HCL 50 MG TABLET PO SCH (21:43)
[2019-10-14] MEDS: OXYCODONE HCL IR 5 MG TABLET PO PRN ×4 (02:28→21:44)
[2019-10-14 06:11] LABS: HEMATOCRIT 27.4 % (36.0-47.0); HEMOGLOBIN 9.4 g/dL (12.0-15.5); MEAN CORPUSCULAR HEMOGLOBIN 33.7 pg (27.0-33.4); MEAN CORPUSCULAR HGB CONC 34.3 g/dL (32.0-36.0); MEAN CORPUSCULAR VOLUME 98 fl (80-97); PLATELET COUNT 105 10^3/uL (150-450); RED CELL DISTRIBUTION WIDTH 21.3 % (11.5-14.0); WHITE BLOOD COUNT 7.5 10^3/uL (4.0-10.5)
[2019-10-14] MEDS: MORPHINE SULFATE SR 15 MG TABLET PO SCH ×3 (06:38→17:19)
[2019-10-14] MEDS: PIPERACILLIN SODIUM/TAZOBACTAM 3.375 GM in NORMAL SALINE 100 ML IV SCH ×3 (06:39→17:19)
[2019-10-14] MEDS: INSULIN LISPRO 100 UNIT/ML 3 ML VIAL SUBCUT SCH ×4 (08:30→21:34)
--- NOTE | 2019-10-14 08:45 | RADIOLOGY REPORT (SQ) ---
EXAM DESCRIPTION: CT HEAD WITHOUT IMAGES COMPLETED DATE/TIME: 10/13/2019 8:42 pm REASON FOR STUDY: fell, hit head on the toilet in hospital COMPARISON: 08/04/2019 TECHNIQUE: Axial images acquired through the brain without intravenous contrast. Images reviewed wi th bone, brain and subdural windows. Additional sagittal and coronal reconstructions were generated. Images stored on PACS. All CT scanners at this facility use dose modulation, iterative reconstruction, and/or weight based d osing when appropriate to reduce radiation dose to as low as reasonably achievable (ALARA). [facility]: Dose Right [facility]: CareDose [facility]: Dose Right [facility]: Teradose 4D [facility]: LawPal RADIATION DOSE: CT Rad equipment meets quality standard of care and radiation dose reduction techniq ues were employed. CTDIvol: 53.2 mGy. DLP: 1017 mGy-cm. mGy. LIMITATIONS: None. FINDINGS: VENTRICLES: Normal size and contour. CEREBRUM: No masses. No hemorrhage. No midline shift. No evidence for acute infarction. Normal gra y/white matter differentiation. No areas of low density in the white matter. CEREBELLUM: No masses. No hemorrhage. No alteration of density. No evidence for acute infarction. EXTRAAXIAL SPACES: No fluid collections. No masses. ORBITS AND GLOBE: No intra- or extraconal masses. Normal contour of globe without masses. CALVARIUM: No fracture. PARANASAL SINUSES: No fluid or mucosal thickening. SOFT TISSUES: Soft tissue swelling over the right frontal bone. OTHER: No other significant finding. IMPRESSION: Focal soft tissue swelling overlying the right frontal bone. No underlying fracture. N o acute intracranial event. EVIDENCE OF ACUTE STROKE: NO. COMMENT: Quality ID # [id number]: Final reports with documentation of one or more dose reduction techniques (e.g., Automated exposure control, adjustment of the mA and/or kV according to patient size, use of iterative reconstruction technique) TECHNICAL DOCUMENTATION: JOB ID: [id number] 2010 [employer]- All Rights Reserved Reading location - IP/workstation name: [email or web address]
--- NOTE | 2019-10-14 10:12 | PDOC PROGRESS REPORT ---
Subjective Progress Note for:: 10/14/19 Subjective:: no complaints Reason For Visit: OSTEOMYELITIS RIGHT FOOT, DM ULCER Physical Exam Vital Signs: Temp Pulse Resp BP Pulse Ox 98.4 F 92 18 105/59 L 98 10/14/19 08:11 10/14/19 08:11 10/14/19 08:11 10/14/19 08:11 10/14/19 08:11 Intake & Output 10/13/19 10/14/19 10/15/19 06:59 06:59 06:59 Intake Total 1240 1640 100 Output Total 350 250 Balance 890 1390 100 Weight 86 kg 86.4 kg General appearance: PRESENT: disheveled, hard of hearing Head exam: PRESENT: other - echymosis rt forehead Ear exam: PRESENT: normal external ear exam Mouth exam: PRESENT: moist Neck exam: PRESENT: full ROM Respiratory exam: PRESENT: clear to auscultation kristina Cardiovascular exam: PRESENT: RRR Breast: PRESENT: Normal GI/Abdominal exam: PRESENT: soft Rectal exam: PRESENT: deferred Extremities exam: PRESENT: other - rt lateral foot with granulstion tissue lateral aspect of wound with swelling digitally opened with some serous drainage, no pus Neurological exam: PRESENT: alert, awake, oriented to person, oriented to place Psychiatric exam: PRESENT: appropriate affect Skin exam: PRESENT: dry Results Laboratory Results: 10/14/19 05:40 10/13/19 17:18 10/13/19 10/14/19 17:18 05:40 WBC 7.5 RBC 2.80 L Hgb 9.4 L Hct 27.4 L MCV 98 H MCH 33.7 H MCHC 34.3 RDW 21.3 H Plt Count 105 L Sodium 131.7 L Potassium 4.1 Chloride 102 Carbon Dioxide 24 Anion Gap 6 BUN 5 L Creatinine 0.70 Est GFR ( Amer) > 60 Glucose 122 H Calcium 9.1 Impressions: Venous Doppler Study 10/11/19 13:03 IMPRESSION: NO EVIDENCE DVT OR SVT IN THE RIGHT LEG. Head CT 10/13/19 00:00 IMPRESSION: Focal soft tissue swelling overlying the right frontal bone. No underlying fracture. No acute intracranial event. EVIDENCE OF ACUTE STROKE: NO. Assessment & Plan - Time Anticipated Discharge Disposition: Home, Self Care Anticipated Discharge Timeframe: within 36 hours - Plan Summary Plan Summary: diabetic foot ulcer previous amputation of rt lat foot prob osteo of prox 4 and 5 tarsal no indication for redebridement of foot at this time p[t needs to consider poss rt bka, rufusing for now. nursing given instrkuctions for wound care pt can be f/u in wound/surgery clilnic upon discharge please reconsult surgery if needed.
[2019-10-14] MEDS: ESCITALOPRAM OXALATE 10 MG TABLET PO SCH (10:22)
[2019-10-14] MEDS: SPIRONOLACTONE 25 MG TABLET PO SCH ×2 (10:22→21:44)
[2019-10-14] MEDS: GLIPIZIDE XL 2.5 MG TAB.ER.24 PO SCH (10:23)
[2019-10-14] MEDS: ENOXAPARIN SODIUM INJ 40 MG/0.4 ML DISP.SYRIN SUBCUT SCH (10:23)
[2019-10-14] MEDS: DOCUSATE SODIUM 100 MG/10 ML UDC PO SCH (10:23)
[2019-10-14] MEDS: ERGOCALCIFEROL (VITAMIN D2) 50000 UNIT (1.25 MG) CAPSULE PO SCH (10:23)
[2019-10-14] MEDS: VANCOMYCIN HCL 1,500 MG in DEXTROSE 5%-WATER 250 ML IV SCH ×2 (10:30→21:44)
--- NOTE | 2019-10-14 18:25 | PDOC PROGRESS REPORT ---
Subjective Progress Note for:: 10/14/19 Subjective:: 10/12/2019 Patient has mildly low potassium which we will replete and her lactic acid is notably lower today. She seems to be improved although she still has some trem ulousness which she states is helped greatly by Ativan. She continues on CIWA protocol. Blood cultures are pending. General surgery is evaluating the patient and will determine when she will go to surgery. I discussed the case with them today. Other than tremulousness and some pain in her right foot patient has no new complaints. 10/13/2019 Patient appears to be comfortable and sleeping in bed during encounter. She is arousable but quickly goes back to sleep. Wound is perhaps healing slightly but infection not be controlled without definitive surgical management. Appreciate general surgery following with us and planning out her surgical course. COVID- 19 testing is still pending and once this is back she will likely be appropriate for the OR if surgery agrees. Continuing IV antibiotics and pain management. Continuing CIWA protocol for alcohol withdrawal which appears to be quite effective. Patient does not express any new complaints other than right foot pain. 10/14/2019 Infectious disease consult placed. COVID-19 testing is negative. Patient had discussion with Dr. Markham today about surgery and she continues to refuse amputation. I spoke with surgery myself today and he believes patient's right foot is not surgically salvageable and she would need a BKA which she is currently refusing. I have consulted ID for help determining choice and duration of IV antibiotics which patient will need for several weeks to treat her osteomyelitis which surgery has confirmed does actually probe to bone. I explained this plan in detail to the patient and told her to let us know if she would like surgery and I will contact the surgeon to schedule this. She has no new complaints today. Plan to stop CIWA protocol tomorrow if she is no longer showing signs of withdrawal as patient is frequently requesting Ativan without acute signs of withdrawal. Reason For Visit: OSTEOMYELITIS RIGHT FOOT, DM ULCER Physical Exam Vital Signs: Temp Pulse Resp BP Pulse Ox 97.9 F 82 18 100/59 L 99 10/14/19 16:43 10/14/19 16:43 10/14/19 16:43 10/14/19 16:43 10/14/19 16:43 Intake & Output 10/13/19 10/14/19 10/15/19 06:59 06:59 06:59 Intake Total 1240 1640 650 Output Total 350 250 Balance 890 1390 650 Weight 86 kg 86.4 kg General appearance: PRESENT: no acute distress, well-developed, well-nourished Head exam: PRESENT: atraumatic, normocephalic Eye exam: PRESENT: conjunctiva pink Mouth exam: PRESENT: moist Respiratory exam: PRESENT: clear to auscultation kristina. ABSENT: rales, rhonchi, wheezes Cardiovascular exam: PRESENT: RRR. ABSENT: diastolic murmur, rubs, systolic murmur GI/Abdominal exam: PRESENT: normal bowel sounds, soft. ABSENT: distended, guarding, mass, organolmegaly, rebound, tenderness Extremities exam: PRESENT: other - Right foot diabetic ulcer with some purulent material stuck to the bandage, does not seem to be healing very much, rather tender Neurological exam: PRESENT: alert, awake, oriented to person, oriented to place, oriented to time, oriented to situation Psychiatric exam: PRESENT: appropriate affect, normal mood Skin exam: PRESENT: dry, warm Results Laboratory Results: 10/14/19 05:40 10/13/19 17:18 10/14/19 05:40 WBC 7.5 RBC 2.80 L Hgb 9.4 L Hct 27.4 L MCV 98 H MCH 33.7 H MCHC 34.3 RDW 21.3 H Plt Count 105 L Impressions: Venous Doppler Study 10/11/19 13:03 IMPRESSION: NO EVIDENCE DVT OR SVT IN THE RIGHT LEG. Head CT 10/13/19 00:00 IMPRESSION: Focal soft tissue swelling overlying the right frontal bone. No underlying fracture. No acute intracranial event. EVIDENCE OF ACUTE STROKE: NO. Assessment and Plan - Diagnosis (1) Osteomyelitis Qualifiers: Osteomyelitis type: other acute Osteomyelitis location: foot Laterality: right Qualified Code(s): M86.171 - Other acute osteomyelitis, right ankle and foot Is this a current diagnosis for this admission?: Yes Plan: 10/12/2019 Patient with osteomyelitis of the fourth toe and metatarsal as well as the fifth metatarsal with associated nonhealing ulcer. Patient is still resistant to a below-knee amputation. But she is willing to undergo fourth toe amputation along with resection of her fourth and fifth metatarsal. Patient is not septic and we will still await her COVID testing prior to taking her to surgery. Her alcohol withdrawal treatment appears to be progressing well. We will make the patient n.p.o. for possible surgery tomorrow if COVID testing returns. 10/13/2019 Still await COVID testing for patient to be appropriate for OR per general surgery General surgery still following, patient prefers to have foot preserving surgery although surgeon told patient she will likely need a BKA in the future despite conservative surgery now. Patient does not want BKA at this time Antibiotics continue 10/13/2021 ID consult to determine choice and duration of antibiotics as patient is refusing surgery; plan on needing PICC line and home infusions to be set up by case management Patient will let us know if she changes her mind about the amputation, currently still refusing BKA, surgery does not believe her foot can be salvaged with a minor procedure (2) Diabetic foot ulcer associated with type 2 diabetes mellitus Qualifiers: Diabetic foot ulcer location: midfoot Laterality: right Is this a current diagnosis for this admission?: Yes (3) Chronic narcotic dependence Is this a current diagnosis for this admission?: Yes (4) COPD (chronic obstructive pulmonary disease) Is this a current diagnosis for this admission?: Yes (5) JENNIFER (obstructive sleep apnea) Is this a current diagnosis for this admission?: Yes (6) Depression Qualifiers: Is this a current diagnosis for this admission?: Yes (7) Diabetes type 2, controlled Qualifiers: Is this a current diagnosis for this admission?: Yes (8) Alcohol withdrawal Qualifiers: Complication of substance-induced condition: uncomplicated Qualified Code( s): F10.230 - Alcohol dependence with withdrawal, uncomplicated Is this a current diagnosis for this admission?: Yes Plan: Per patient never has had withdrawal in the past CIWA protocol As needed IV Ativan available Counseled on cessation Drinks 24 beers per day 10/12/2019 Still tremulous but states Ativan is helping this 10/13/2019 Alcohol withdrawal seems to be leveling off and resolving Continue CIWA 10/13/2021 Only requesting Ativan though she is not exhibiting any signs of withdrawal, plan to stop CIWA tomorrow if she is no longer showing withdrawal signs at all - Time Time Spent with patient: 25-34 minutes Anticipated Discharge Disposition: Home with Home Health Anticipated Discharge Timeframe: within 72 hours - Inpatient Certification Based on my medical assessment, after consideration of the patient's comorbidities, presenting symptoms, or acuity I expect that the services needed warrant INPATIENT care.: Yes I certify that my determination is in accordance with my understanding of Medicare's requirements for reasonable and necessary INPATIENT services [42 CFR 412.3e].: Yes Medical Necessity: Significant Comorbidiites Make Outpatient Treatment Too Risky, Need Close Monitoring Due to Risk of Patient Decompensation, Need for IV Antibiotics, Risk of Complication if Not Cared For in Hospital, Risk of Diagnosis Which Will Require Inpatient Eval/Care/Monitoring
[2019-10-14] MEDS: TRAZODONE HCL 50 MG TABLET PO SCH (21:43)
[2019-10-14 21:55] LABS: VANCOMYCIN,TROUGH 43.6 ug/mL (5.0-20.0)
[2019-10-15] MEDS: MORPHINE SULFATE SR 15 MG TABLET PO SCH ×5 (00:11→23:17)
[2019-10-15] MEDS: PIPERACILLIN SODIUM/TAZOBACTAM 3.375 GM in NORMAL SALINE 100 ML IV SCH ×5 (00:11→23:17)
[2019-10-15] MEDS: OXYCODONE HCL IR 5 MG TABLET PO PRN (03:55)
--- NOTE | 2019-10-15 08:47 | Progress Note ---
Provider Note Provider Note: [facility] ID Telephone Advice Follow Up Chart reviewed. Patient is a 49-year-old woman with long history of Diabetes Me llitus, poorly compliant and also with alcohol abuse, multiple complications who has been dealing with a right foot infection for months now. She was seeing a business management professor and visiting a wound clinic. She had partial debridement of the infection in her foot but she started having worsening pain, redness and swelling back in July. She was recommended to take levofloxacin and cephalexin. Her symptoms did not improve and she was admitted on 07/27. She was evaluated by surgery who performed I&D with amputation of 5th toe. Initial wound cultures were positive for MRSA and Enterococcus faecalis, but she was already on cephalexin and levofloxacin. She was started on vancomycin and zosyn. Her crea tinine significantly worsened and vancomycin trough was elevated. She was transitioned to daptomycin and levofloxacin to complete 6 weeks of therapy. She was discharged home on 08/08 to complete therapy on 09/15. As patient is not compliant, her symptoms have been getting worse, she has pain and worsened drainage from the right foot. She was admitted on 10/10 and was evaluated by surgery who recommended BKA as there is OM of the 5th MT and 4th phalanx and MT as bone is exposed. The foot is not surgically salvageable. She vehemently refuses amputation. Blood culture with 1 set positive for GPC in clusters awaiting identification. ID consulted Allergies: fire ant Allergy (Severe, Verified 10/11/19 09:43) Anaphylaxis bee venom protein (honey bee) Allergy (Verified 10/11/19 09:43) nitrofurantoin macrocrystalline [From Macrobid] Allergy (Verified 10/11/19 09 :43) Sulfa (Sulfonamide Antibiotics) Allergy (Verified 10/11/19 09:43) sulfamethoxazole [From Bactrim] Allergy (Verified 10/11/19 09:43) trimethoprim [From Bactrim] Allergy (Verified 10/11/19 09:43) Medications: Escitalopram Oxalate [Lexapro] 40 mg PO DAILY 01/10/18 Oxycodone HCl [Oxycodone HCl 10 MG Tablet] 10 mg PO Q4HP PRN MDD 5 08/20/18 Buspirone HCl [Buspar 10 mg Tablet] 7.5 mg PO BID 07/28/19 Ergocalciferol (Vitamin D2) [Drisdol 50,000 unit (1.25MG) Capsule] 50,000 unit PO FR@1000 07/28/19 Furosemide [Lasix 40 mg Tablet] 40 mg PO Q2D 10/11/19 Glipizide [Glucotrol Xl 2.5 mg Tab.er] 2.5 mg PO ACBRKFST 10/11/19 Lurasidone HCl [Latuda] 20 mg PO DAILY 10/11/19 Morphine Sulfate [Ms-Contin Sr 15 mg Tablet] 15 mg PO Q6 10/11/19 Spironolactone [Aldactone 25 mg Tablet] 25 mg PO Q12 10/11/19 Trazodone HCl 150 mg PO QHS 10/11/19 Vital Signs: Temp Pulse Resp BP Pulse Ox 97.9 F 88 21 H 101/58 L 95 10/15/19 07:12 10/15/19 07:12 10/15/19 07:12 10/15/19 07:12 10/15/19 07:12 Intake & Output 10/14/19 10/15/19 10/16/19 06:59 06:59 06:59 Intake Total 1640 1912 Output Total 250 Balance 1390 1912 Weight 86.4 kg 86.7 kg Weight/Height Weight 86.7 kg Height 5 ft 8 in Laboratories: 10/14/19 05:40 10/13/19 17:18 MCV 98 fl (80-97) H 10/14/19 05:40 MCH 33.7 pg (27.0-33.4) H 10/14/19 05:40 MCHC 34.3 g/dL (32.0-36.0) 10/14/19 05:40 RDW 21.3 % (11.5-14.0) H 10/14/19 05:40 Seg Neutrophils % 69.0 % (42-78) 10/11/19 10:07 VBG pH 7.41 (7.30-7.42) 10/11/19 10:07 VBG pCO2 31.8 mmHg (35-63) L 10/11/19 10:07 VBG HCO3 19.6 mmol/L (20-32) L 10/11/19 10:07 VBG Base Excess -4.3 mmol/L 10/11/19 10:07 Chloride 102 mmol/L (98-107) 10/13/19 17:18 Carbon Dioxide 24 mmol/L (22-30) 10/13/19 17:18 Anion Gap 6 (5-19) 10/13/19 17:18 Est GFR ( Amer) > 60 (>60) 10/13/19 17:18 Glucose 122 mg/dL (75-110) H 10/13/19 17:18 Lactic Acid 1.7 mmol/L (0.7-2.1) 10/11/19 16:15 Calcium 9.1 mg/dL (8.4-10.2) 10/13/19 17:18 Phosphorus 3.1 mg/dL (2.5-4.5) 10/12/19 05:32 Magnesium 1.4 mg/dL (1.6-2.3) L 10/12/19 05:32 Total Bilirubin 1.0 mg/dL (0.2-1.3) 10/11/19 10:07 AST 66 U/L (14-36) H 10/11/19 10:07 Alkaline Phosphatase 233 U/L (38-126) H 10/11/19 10:07 Total Protein 8.3 g/dL (6.3-8.2) H 10/11/19 10:07 Albumin 3.3 g/dL (3.5-5.0) L 10/11/19 10:07 Microbiology: Blood culture 10/10 GPC in clusters 1/2 sets Wound culture: No new wound cultures 07/27 MRSA, Enterococcus faecalis 07/28 NGTD Radiology: Venous Doppler Study 10/11/19 13:03 IMPRESSION: NO EVIDENCE DVT OR SVT IN THE RIGHT LEG. Head CT 10/13/19 00:00 IMPRESSION: Focal soft tissue swelling overlying the right frontal bone. No underlying fracture. No acute intracranial event. EVIDENCE OF ACUTE STROKE: NO. Previous admission Foot X-Ray 07/28/19 17:51 IMPRESSION: 1. No significant interval changes since the prior examination dated 07/25/2019. No radiographic evidence of osteomyelitis. 2. Soft tissue injury/defect again identified along the lateral aspect of the fifth metatarsophalangeal joint, consistent with the patient's known ulcer. 3. Soft tissue swelling involving the right foot. Assessment and Recommendations: Patient evaluated for diabetic foot infection s/p amputation of the 5th toe in 07/2019 and 6 weeks of daptomycin and levofloxacin. Prebious cultures grew MRSA and Enterococcus but she was on antibiotics prior to surgery. She was now admitted with worsening OM of the right foot with 5th MT and 4th MT and phalanx OM, bone exposure. Unfortunately, her foot is not surgically salvageable and giving more antibiotics will increase the risk of C diff infection, development of MDR organisms and toxicity. She needs to be aware of that. I agree that patient needs a BKA. Giving her more antibiotics in the setting of alcohol abuse and non compliance is not going to eradicate this infection. She just completed 6 weeks of antibiotic therapy with worsening infection on her foot that can only be eradicated by a BKA. I don't think offering another 6 weeks of antibiotics will do any good at this point. If patient still refuses surgery, can consider doxycycline 100 mg po bid + augmentin 500/125 mg po tid, but again this is not standard of care and possibilities of healing are scarce. Please call if questions. Rosalee Wilder MD [facility] ID [phone]
[2019-10-15] MEDS: ENOXAPARIN SODIUM INJ 40 MG/0.4 ML DISP.SYRIN SUBCUT SCH (09:37)
[2019-10-15] MEDS: DOCUSATE SODIUM 100 MG/10 ML UDC PO SCH (09:37)
[2019-10-15] MEDS: INSULIN LISPRO 100 UNIT/ML 3 ML VIAL SUBCUT SCH ×4 (09:37→21:55)
[2019-10-15] MEDS: GLIPIZIDE XL 2.5 MG TAB.ER.24 PO SCH (09:41)
[2019-10-15] MEDS: ESCITALOPRAM OXALATE 10 MG TABLET PO SCH (09:41)
[2019-10-15] MEDS: SPIRONOLACTONE 25 MG TABLET PO SCH ×2 (09:41→21:55)
--- NOTE | 2019-10-15 11:34 | PDOC PROGRESS REPORT ---
Subjective Progress Note for:: 10/15/19 Subjective:: 10/12/2019 Patient has mildly low potassium which we will replete and her lactic acid is notably lower today. She seems to be improved although she still has some trem ulousness which she states is helped greatly by Ativan. She continues on CIWA protocol. Blood cultures are pending. General surgery is evaluating the patient and will determine when she will go to surgery. I discussed the case with them today. Other than tremulousness and some pain in her right foot patient has no new complaints. 10/13/2019 Patient appears to be comfortable and sleeping in bed during encounter. She is arousable but quickly goes back to sleep. Wound is perhaps healing slightly but infection not be controlled without definitive surgical management. Appreciate general surgery following with us and planning out her surgical course. COVID- 19 testing is still pending and once this is back she will likely be appropriate for the OR if surgery agrees. Continuing IV antibiotics and pain management. Continuing CIWA protocol for alcohol withdrawal which appears to be quite effective. Patient does not express any new complaints other than right foot pain. 10/14/2019 Infectious disease consult placed. COVID-19 testing is negative. Patient had discussion with Dr. Markham today about surgery and she continues to refuse amputation. I spoke with surgery myself today and he believes patient's right foot is not surgically salvageable and she would need a BKA which she is currently refusing. I have consulted ID for help determining choice and duration of IV antibiotics which patient will need for several weeks to treat her osteomyelitis which surgery has confirmed does actually probe to bone. I explained this plan in detail to the patient and told her to let us know if she would like surgery and I will contact the surgeon to schedule this. She has no new complaints today. Plan to stop CIWA protocol tomorrow if she is no longer showing signs of withdrawal as patient is frequently requesting Ativan without acute signs of withdrawal. 10/15/2019-patient is refusing amputation of the right lower leg. She wants to try the IV antibiotics. She expressed a desire to sign the [facility] medical advice today to take care of the issues at home later on she changed her mind decided to stay in the hospital for further management. Presently she is on IV Zosyn and vancomycin. Blood cultures are positive for gram-positive cocci in clusters. Comfortably in the chair communicating well. Reason For Visit: OSTEOMYELITIS RIGHT FOOT, DM ULCER Physical Exam Vital Signs: Temp Pulse Resp BP Pulse Ox 97.9 F 88 21 H 101/58 L 95 10/15/19 07:12 10/15/19 07:12 10/15/19 07:12 10/15/19 07:12 10/15/19 07:12 Intake & Output 10/14/19 10/15/19 10/16/19 06:59 06:59 06:59 Intake Total 1640 1912 Output Total 250 Balance 1390 1912 Weight 86.4 kg 86.7 kg General appearance: PRESENT: no acute distress, well-developed Head exam: PRESENT: atraumatic Eye exam: PRESENT: PERRLA Ear exam: PRESENT: normal external ear exam Mouth exam: PRESENT: neck supple Teeth exam: PRESENT: poor dentation Respiratory exam: PRESENT: decreased breath sounds Cardiovascular exam: PRESENT: RRR. ABSENT: diastolic murmur, rubs, systolic murmur GI/Abdominal exam: PRESENT: normal bowel sounds, soft. ABSENT: distended, guarding, mass, organolmegaly, rebound, tenderness Rectal exam: PRESENT: deferred Extremities exam: PRESENT: other - Right foot diabetic ulcer with drainage so due to bandage. Not healing well. Very tender to touch. Neurological exam: PRESENT: alert, awake, oriented to person, oriented to place, oriented to time, oriented to situation, CN II-XII grossly intact. ABSENT: motor sensory deficit Psychiatric exam: PRESENT: appropriate affect, normal mood. ABSENT: homicidal ideation, suicidal ideation Skin exam: PRESENT: other - Decubitus ulcer nonhealing ulcer present on the right foot. Results Laboratory Results: 10/14/19 05:40 10/13/19 17:18 Impressions: Venous Doppler Study 10/11/19 13:03 IMPRESSION: NO EVIDENCE DVT OR SVT IN THE RIGHT LEG. Head CT 10/13/19 00:00 IMPRESSION: Focal soft tissue swelling overlying the right frontal bone. No underlying fracture. No acute intracranial event. EVIDENCE OF ACUTE STROKE: NO. Assessment and Plan - Diagnosis (1) Osteomyelitis Qualifiers: Osteomyelitis type: other acute Osteomyelitis location: foot Laterality: right Qualified Code(s): M86.171 - Other acute osteomyelitis, right ankle and foot Is this a current diagnosis for this admission?: Yes Plan: 10/12/2019 Patient with osteomyelitis of the fourth toe and metatarsal as well as the fifth metatarsal with associated nonhealing ulcer. Patient is still resistant to a below-knee amputation. But she is willing to undergo fourth toe amputation along with resection of her fourth and fifth metatarsal. Patient is not septic and we will still await her COVID testing prior to taking her to surgery. Her alcohol withdrawal treatment appears to be progressing well. We will make the patient n.p.o. for possible surgery tomorrow if COVID testing returns. 10/13/2019 Still await COVID testing for patient to be appropriate for OR per general surgery General surgery still following, patient prefers to have foot preserving surgery although surgeon told patient she will likely need a BKA in the future despite conservative surgery now. Patient does not want BKA at this time Antibiotics continue 10/13/2021 ID consult to determine choice and duration of antibiotics as patient is refusing surgery; plan on needing PICC line and home infusions to be set up by case management Patient will let us know if she changes her mind about the amputation, current ly still refusing BKA, surgery does not believe her foot can be salvaged with a minor procedure 10/15/2019-patient is receiving IV Zosyn and vancomycin blood cultures are positive for gram-positive cocci in clusters. ID consult was done surgical consult was done the recommendation is right BKA. Patient is refusing to consider right BKA at this time wants to continue IV antibiotic therapy. Patien t understood and aware of the significant morbidity and mortality associated with delaying the surgery. (2) Chronic narcotic dependence Is this a current diagnosis for this admission?: Yes Plan: Per patient, takes long-acting morphine, short acting narcotics, and takes a fentanyl patch 25 mcg Home medications continued the patient does not wear a fentanyl patch on exam and this is not new medication history. We will need to confirm that she uses this before continuing it (3) JENNIFER (obstructive sleep apnea) Is this a current diagnosis for this admission?: Yes Plan: Okay for RT to give CPAP or for patient to use her own (4) Diabetic foot ulcer associated with type 2 diabetes mellitus Qualifiers: Diabetic foot ulcer location: midfoot Laterality: right Is this a current diagnosis for this admission?: Yes Plan: As above 10/15/2019-patient admitted with nonhealing diabetic ulcer and treated as an outpatient with antibiotic therapy. Presently on IV Zosyn and vancomycin, blood culture positive for gram-positive cocci in clusters. Patient vehemently refusing surgery at this time. As per the surgical team right lower leg is nonsalvageable. (5) Alcohol withdrawal Qualifiers: Complication of substance-induced condition: uncomplicated Qualified Code(s): F10.230 - Alcohol dependence with withdrawal, uncomplicated Is this a current diagnosis for this admission?: Yes Plan: Per patient never has had withdrawal in the past CIWA protocol As needed IV Ativan available Counseled on cessation Drinks 24 beers per day 10/12/2019 Still tremulous but states Ativan is helping this 10/13/2019 Alcohol withdrawal seems to be leveling off and resolving Continue CIWA 10/13/2021 Only requesting Ativan though she is not exhibiting any signs of withdrawal, plan to stop CIWA tomorrow if she is no longer showing withdrawal signs at all - Time Anticipated Discharge Disposition: [facility] Facility Anticipated Discharge Timeframe: within 72 hours
[2019-10-15] MEDS: FUROSEMIDE 40 MG TABLET PO SCH (17:46)
[2019-10-15] MEDS: TRAZODONE HCL 50 MG TABLET PO SCH (21:54)
[2019-10-15 22:37] LABS: VANCOMYCIN,TROUGH 48.3 ug/mL (5.0-20.0)
[2019-10-16 04:54] LABS: ABSOLUTE EOSINOPHILS # (AUTO) 0.2 10^3/uL (0.0-0.6); ABSOLUTE LYMPHOCYTES (AUTO) 1.3 10^3/uL (0.5-4.7); ABSOLUTE MONOCYTES (AUTO) 1.1 10^3/uL (0.1-1.4); ABSOLUTE NEUT (AUTO) 5.1 10^3/uL (1.7-8.2); BASOPHILS % (AUTO) 0.6 % (0-2); HEMATOCRIT 21.6 % (36.0-47.0); LYMPHOCYTES % (AUTO) 17.1 % (13-45); MEAN CORPUSCULAR HEMOGLOBIN 33.8 pg (27.0-33.4); MEAN CORPUSCULAR HGB CONC 34.5 g/dL (32.0-36.0); MEAN CORPUSCULAR VOLUME 98 fl (80-97); MONOCYTES % (AUTO) 13.7 % (3-13); PLATELET COUNT 118 10^3/uL (150-450); RED CELL DISTRIBUTION WIDTH 21.5 % (11.5-14.0); SEGMENTED NEUTROPHILS % (AUTO) 66.6 % (42-78); TOTAL CELLS COUNTED % (AUTO) 100 %; WHITE BLOOD COUNT 7.7 10^3/uL (4.0-10.5)
[2019-10-16 04:56] LABS: HEMOGLOBIN 7.4 g/dL (12.0-15.5)
[2019-10-16 05:12] LABS: ALBUMIN 2.6 g/dL (3.5-5.0); ALKALINE PHOSPHATASE 149 U/L (38-126); ANION GAP 10 (5-19); ASPARTATE AMINO TRANSFERASE 44 U/L (14-36); BILIRUBIN,DIRECT 0.5 mg/dL (0.0-0.4); BILIRUBIN,TOTAL 1.1 mg/dL (0.2-1.3); BLOOD UREA NITROGEN 15 mg/dL (7-20); CALCIUM 8.8 mg/dL (8.4-10.2); CARBON DIOXIDE 19 mmol/L (22-30); CHLORIDE 101 mmol/L (98-107); TOTAL PROTEIN 6.6 g/dL (6.3-8.2)
[2019-10-16 05:24] LABS: GLUCOSE 39 mg/dL (75-110); POTASSIUM 2.9 mmol/L (3.6-5.0)
[2019-10-16] MEDS ORDERED: POTASSIUM CHLORIDE 10 MEQ TABLET.ER PO ONE (06:00)
[2019-10-16] MEDS: PIPERACILLIN SODIUM/TAZOBACTAM 3.375 GM in NORMAL SALINE 100 ML IV SCH (06:02)
[2019-10-16] MEDS: MORPHINE SULFATE SR 15 MG TABLET PO SCH ×4 (06:36→23:05)
[2019-10-16] MEDS ORDERED: NORMAL SALINE 250 ML IV PRN ×2 (07:58)
[2019-10-16] MEDS: INSULIN LISPRO 100 UNIT/ML 3 ML VIAL SUBCUT SCH ×4 (08:41→23:08)
[2019-10-16] MEDS: ESCITALOPRAM OXALATE 10 MG TABLET PO SCH (09:28)
[2019-10-16] MEDS: SPIRONOLACTONE 25 MG TABLET PO SCH ×2 (09:28→23:05)
[2019-10-16] MEDS: POTASSIUM CHLORIDE 10 MEQ TABLET.ER PO SCH ×2 (09:29→23:04)
[2019-10-16] MEDS: OXYCODONE HCL IR 5 MG TABLET PO PRN (09:29)
[2019-10-16] MEDS: DOCUSATE SODIUM 100 MG/10 ML UDC PO SCH (09:53)
[2019-10-16] MEDS: ENOXAPARIN SODIUM INJ 40 MG/0.4 ML DISP.SYRIN SUBCUT SCH (09:53)
--- NOTE | 2019-10-16 11:26 | PDOC PROGRESS REPORT ---
Subjective Progress Note for:: 10/16/19 Subjective:: 10/12/2019 Patient has mildly low potassium which we will replete and her lactic acid is notably lower today. She seems to be improved although she still has some trem ulousness which she states is helped greatly by Ativan. She continues on CIWA protocol. Blood cultures are pending. General surgery is evaluating the patient and will determine when she will go to surgery. I discussed the case with them today. Other than tremulousness and some pain in her right foot patient has no new complaints. 10/13/2019 Patient appears to be comfortable and sleeping in bed during encounter. She is arousable but quickly goes back to sleep. Wound is perhaps healing slightly but infection not be controlled without definitive surgical management. Appreciate general surgery following with us and planning out her surgical course. COVID- 19 testing is still pending and once this is back she will likely be appropriate for the OR if surgery agrees. Continuing IV antibiotics and pain management. Continuing CIWA protocol for alcohol withdrawal which appears to be quite effective. Patient does not express any new complaints other than right foot pain. 10/14/2019 Infectious disease consult placed. COVID-19 testing is negative. Patient had discussion with Dr. Markham today about surgery and she continues to refuse amputation. I spoke with surgery myself today and he believes patient's right foot is not surgically salvageable and she would need a BKA which she is currently refusing. I have consulted ID for help determining choice and duration of IV antibiotics which patient will need for several weeks to treat her osteomyelitis which surgery has confirmed does actually probe to bone. I explained this plan in detail to the patient and told her to let us know if she would like surgery and I will contact the surgeon to schedule this. She has no new complaints today. Plan to stop CIWA protocol tomorrow if she is no longer showing signs of withdrawal as patient is frequently requesting Ativan without acute signs of withdrawal. 10/15/2019-patient is refusing amputation of the right lower leg. She wants to try the IV antibiotics. She expressed a desire to sign the [facility] medical advice today to take care of the issues at home later on she changed her mind decided to stay in the hospital for further management. Presently she is on IV Zosyn and vancomycin. Blood cultures are positive for gram-positive cocci in clusters. Comfortably in the chair communicating well. 10/16/2019- is at bedside he tried to convince the patient to go for surgery. Patient is reluctant and she said she is afraid of left below-knee amputation. She wants to go home for a week and come back for surgery. I explained to her that she may have to sign AMA if she really wants to do that. Patient changed her mind decided to stay in the hospital. Vanco trough is 44 and creatinine jumped from 0.7 to3.3. Vancomycin is on hold at this time. Reason For Visit: OSTEOMYELITIS RIGHT FOOT, DM ULCER Physical Exam Vital Signs: Temp Pulse Resp BP Pulse Ox 97.9 F 78 15 94/50 L 99 10/16/19 08:14 10/16/19 08:14 10/16/19 08:14 10/16/19 08:14 10/16/19 08:14 Intake & Output 10/15/19 10/16/19 10/17/19 06:59 06:59 06:59 Intake Total 1911 820 100 Balance 1911 820 100 Weight 86.7 kg 86.5 kg General appearance: PRESENT: no acute distress, well-developed Head exam: PRESENT: atraumatic Eye exam: PRESENT: conjunctiva pale, PERRLA Ear exam: PRESENT: normal external ear exam Mouth exam: PRESENT: neck supple Teeth exam: PRESENT: poor dentation Neck exam: ABSENT: carotid bruit, JVD, lymphadenopathy, thyromegaly Respiratory exam: PRESENT: decreased breath sounds Cardiovascular exam: PRESENT: RRR. ABSENT: diastolic murmur, rubs, systolic murmur GI/Abdominal exam: PRESENT: normal bowel sounds, soft. ABSENT: distended, guarding, mass, organolmegaly, rebound, tenderness Rectal exam: PRESENT: deferred Extremities exam: PRESENT: full ROM, other - Patient has this diabetic wound with exposed bone on the right foot.. ABSENT: calf tenderness, clubbing, pedal edema Neurological exam: PRESENT: alert, awake, oriented to person, oriented to place, oriented to time, oriented to situation, CN II-XII grossly intact. ABSENT: motor sensory deficit Psychiatric exam: PRESENT: appropriate affect, normal mood. ABSENT: homicidal ideation, suicidal ideation Results Laboratory Results: 10/16/19 04:42 10/16/19 04:42 10/16/19 10/16/1920 04:42 04:42 08:47 WBC 7.7 RBC 2.20 L Hgb 7.4 L Hct 21.6 L MCV 98 H MCH 33.8 H MCHC 34.5 RDW 21.5 H Plt Count 118 L Seg Neutrophils % 66.6 Sodium 130.1 L Potassium 2.9 L* Chloride 101 Carbon Dioxide 19 L Anion Gap 10 BUN 15 Creatinine 3.33 H Est GFR ( Amer) 18 L Glucose 39 L* Calcium 8.8 Magnesium 1.6 Total Bilirubin 1.1 AST 44 H Alkaline Phosphatase 149 H Total Protein 6.6 Albumin 2.6 L Blood Type O POSITIVE Antibody Screen NEGATIVE 10/11/19 10:45 Blood Blood Culture - Final NO GROWTH IN 5 DAYS 10/11/19 10:07 Blood Blood Culture - Final Staphylococcus Hominis Impressions: Venous Doppler Study 10/11/19 13:03 IMPRESSION: NO EVIDENCE DVT OR SVT IN THE RIGHT LEG. Head CT 10/13/19 00:00 IMPRESSION: Focal soft tissue swelling overlying the right frontal bone. No underlying fracture. No acute intracranial event. EVIDENCE OF ACUTE STROKE: NO. Assessment and Plan - Diagnosis (1) Osteomyelitis Qualifiers: Osteomyelitis type: other acute Osteomyelitis location: foot Laterality: right Qualified Code(s): M86.171 - Other acute osteomyelitis, right ankle and foot Is this a current diagnosis for this admission?: Yes Plan: 10/12/2019 Patient with osteomyelitis of the fourth toe and metatarsal as well as the fifth metatarsal with associated nonhealing ulcer. Patient is still resistant to a below-knee amputation. But she is willing to undergo fourth toe amputation along with resection of her fourth and fifth metatarsal. Patient is not septic and we will still await her COVID testing prior to taking her to surgery. Her alcohol withdrawal treatment appears to be progressing well. We will make the patient n.p.o. for possible surgery tomorrow if COVID testing returns. 10/13/2019 Still await COVID testing for patient to be appropriate for OR per general surg [facility] General surgery still following, patient prefers to have foot preserving surgery although surgeon told patient she will likely need a BKA in the future despite conservative surgery now. Patient does not want BKA at this time Antibiotics continue 10/13/2021 ID consult to determine choice and duration of antibiotics as patient is refusing surgery; plan on needing PICC line and home infusions to be set up by case management Patient will let us know if she changes her mind about the amputation, currently still refusing BKA, surgery does not believe her foot can be salvaged with a minor procedure 10/15/2019-patient is receiving IV Zosyn and vancomycin blood cultures are positive for gram-positive cocci in clusters. ID consult was done surgical consult was done the recommendation is right BKA. Patient is refusing to consider right BKA at this time wants to continue IV antibiotic therapy. Patient understood and aware of the significant morbidity and mortality associated with delaying the surgery. 10/16/2019-patient is presently on IV Zosyn, Vanco trough is 44 and vancomycin is on hold. Patient is not willing to go for right BKA at this time. As per the surgical team wound is surgically nonsalvageable. Plan is to continue the present management. Patient's is at bedside he is in agreement with the right BKA and he is trying his best to convince the patient. (2) Chronic narcotic dependence Is this a current diagnosis for this admission?: Yes Plan: Per patient, takes long-acting morphine, short acting narcotics, and takes a fentanyl patch 25 mcg Home medications continued the patient does not wear a fentanyl patch on exam and this is not new medication history. We will need to confirm that she uses this before continuing it (3) JENNIFER (obstructive sleep apnea) Is this a current diagnosis for this admission?: Yes Plan: Okay for RT to give CPAP or for patient to use her own (4) Diabetic foot ulcer associated with type 2 diabetes mellitus Qualifiers: Diabetic foot ulcer location: midfoot Laterality: right Is this a current diagnosis for this admission?: Yes Plan: As above 10/15/2019-patient admitted with nonhealing diabetic ulcer and treated as an outpatient with antibiotic therapy. Presently on IV Zosyn and vancomycin, blood culture positive for gram-positive cocci in clusters. Patient vehemently refusing surgery at this time. As per the surgical team right lower leg is nonsalvageable. (5) Alcohol withdrawal Qualifiers: Complication of substance-induced condition: uncomplicated Qualified Code(s): F10.230 - Alcohol dependence with withdrawal, uncomplicated Is this a current diagnosis for this admission?: Yes Plan: Per patient never has had withdrawal in the past CIWA protocol As needed IV Ativan available Counseled on cessation Drinks 24 beers per day 10/12/2019 Still tremulous but states Ativan is helping this 10/13/2019 Alcohol withdrawal seems to be leveling off and resolving Continue CIWA 10/13/2021 Only requesting Ativan though she is not exhibiting any signs of withdrawal, plan to stop CIWA tomorrow if she is no longer showing withdrawal signs at all (6) TONYA (acute kidney injury) Is this a current diagnosis for this admission?: Yes Plan: 10/16/2019-creatinine today is 3.3 and yesterday's creatinine 0.7. Acute kidney injury most likely due to vancomycin toxicity. Vancomycin trough is 44 at this time. Vancomycin is on hold. Plan is to repeat the labs tomorrow. (7) Anemia Is this a current diagnosis for this admission?: No Plan: 10/16/19-patient has history of anemia of chronic disease hemoglobin 7.4 to give 1 unit of blood transfusion today. And to repeat the labs tomorrow. - Time Anticipated Discharge Disposition: Custodial Facility Anticipated Discharge Timeframe: within 72 hours
[2019-10-16] MEDS: PIPERACILLIN SODIUM/TAZOBACTAM 2.25 GM in NORMAL SALINE 50 ML IV SCH ×3 (11:35→23:05)
[2019-10-16 18:43] LABS: ABSOLUTE EOSINOPHILS # (AUTO) 0.2 10^3/uL (0.0-0.6); ABSOLUTE LYMPHOCYTES (AUTO) 1.2 10^3/uL (0.5-4.7); ABSOLUTE MONOCYTES (AUTO) 1.1 10^3/uL (0.1-1.4); ABSOLUTE NEUT (AUTO) 6.3 10^3/uL (1.7-8.2); BASOPHILS % (AUTO) 0.5 % (0-2); EOSINOPHILS % (AUTO) 2.1 % (0-6); HEMATOCRIT 28.3 % (36.0-47.0); LYMPHOCYTES % (AUTO) 13.4 % (13-45); MEAN CORPUSCULAR HEMOGLOBIN 33.6 pg (27.0-33.4); MEAN CORPUSCULAR VOLUME 99 fl (80-97); MONOCYTES % (AUTO) 12.4 % (3-13); PLATELET COUNT 151 10^3/uL (150-450); RED BLOOD COUNT 2.86 10^6/uL (3.72-5.28); RED CELL DISTRIBUTION WIDTH 21.2 % (11.5-14.0); SEGMENTED NEUTROPHILS % (AUTO) 71.6 % (42-78); TOTAL CELLS COUNTED % (AUTO) 100 %; WHITE BLOOD COUNT 8.7 10^3/uL (4.0-10.5)
[2019-10-16 18:46] LABS: HEMOGLOBIN 9.6 g/dL (12.0-15.5)
[2019-10-16] MEDS: TRAZODONE HCL 50 MG TABLET PO SCH (23:05)
[2019-10-17 05:50] LABS: ABSOLUTE BASOPHILS # (AUTO) 0.1 10^3/uL (0.0-0.2); ABSOLUTE EOSINOPHILS # (AUTO) 0.1 10^3/uL (0.0-0.6); ABSOLUTE LYMPHOCYTES (AUTO) 1.3 10^3/uL (0.5-4.7); ABSOLUTE MONOCYTES (AUTO) 1.2 10^3/uL (0.1-1.4); ABSOLUTE NEUT (AUTO) 5.2 10^3/uL (1.7-8.2); BASOPHILS % (AUTO) 0.8 % (0-2); EOSINOPHILS % (AUTO) 1.9 % (0-6); HEMATOCRIT 25.2 % (36.0-47.0); HEMOGLOBIN 8.6 g/dL (12.0-15.5); LYMPHOCYTES % (AUTO) 16.3 % (13-45); MEAN CORPUSCULAR HEMOGLOBIN 33.4 pg (27.0-33.4); MEAN CORPUSCULAR HGB CONC 34.1 g/dL (32.0-36.0); MEAN CORPUSCULAR VOLUME 98 fl (80-97); MONOCYTES % (AUTO) 15.6 % (3-13); PLATELET COUNT 135 10^3/uL (150-450); RED BLOOD COUNT 2.57 10^6/uL (3.72-5.28); RED CELL DISTRIBUTION WIDTH 20.9 % (11.5-14.0); SEGMENTED NEUTROPHILS % (AUTO) 65.4 % (42-78); TOTAL CELLS COUNTED % (AUTO) 100 %; WHITE BLOOD COUNT 7.9 10^3/uL (4.0-10.5)
[2019-10-17 06:00] LABS: INTERNATIONAL RATION (INR) 1.17; PROTHROMBIN TIME 15.1 SEC (11.4-15.4)
[2019-10-17 06:15] LABS: ALBUMIN 2.7 g/dL (3.5-5.0); ALKALINE PHOSPHATASE 123 U/L (38-126); ANION GAP 7 (5-19); ASPARTATE AMINO TRANSFERASE 37 U/L (14-36); BILIRUBIN,DIRECT 0.3 mg/dL (0.0-0.4); BILIRUBIN,TOTAL 0.9 mg/dL (0.2-1.3); BLOOD UREA NITROGEN 18 mg/dL (7-20); CALCIUM 8.9 mg/dL (8.4-10.2); CARBON DIOXIDE 21 mmol/L (22-30); CHLORIDE 103 mmol/L (98-107); POTASSIUM 4.2 mmol/L (3.6-5.0); TOTAL PROTEIN 6.8 g/dL (6.3-8.2)
[2019-10-17 06:18] LABS: GLUCOSE 68 mg/dL (75-110)
[2019-10-17] MEDS: PIPERACILLIN SODIUM/TAZOBACTAM 2.25 GM in NORMAL SALINE 50 ML IV SCH ×4 (06:18→23:38)
[2019-10-17] MEDS: MORPHINE SULFATE SR 15 MG TABLET PO SCH ×3 (06:19→17:42)
[2019-10-17] MEDS: INSULIN LISPRO 100 UNIT/ML 3 ML VIAL SUBCUT SCH ×4 (07:29→21:28)
[2019-10-17] MEDS ORDERED: ONDANSETRON HCL INJ/PF 4 MG/2 ML SDV IV PRN (07:30)
[2019-10-17] MEDS ORDERED: ONDANSETRON 4 MG TAB.RAPDIS PO PRN (07:30)
[2019-10-17 08:31] LABS: VANCOMYCIN,TROUGH 37.1 ug/mL (5.0-20.0)
[2019-10-17] MEDS: ENOXAPARIN SODIUM INJ 30 MG/0.3 ML DISP.SYRIN SUBCUT SCH (09:47)
[2019-10-17] MEDS: SPIRONOLACTONE 25 MG TABLET PO SCH (10:04)
[2019-10-17] MEDS: ESCITALOPRAM OXALATE 10 MG TABLET PO SCH (10:05)
[2019-10-17] MEDS: DOCUSATE SODIUM 100 MG CAPSULE PO SCH (10:05)
[2019-10-17] MEDS: POTASSIUM CHLORIDE 10 MEQ TABLET.ER PO SCH ×2 (10:06→21:27)
--- NOTE | 2019-10-17 11:58 | PDOC PROGRESS REPORT ---
Subjective Progress Note for:: 10/17/19 Subjective:: 10/12/2019 Patient has mildly low potassium which we will replete and her lactic acid is notably lower today. She seems to be improved although she still has some trem ulousness which she states is helped greatly by Ativan. She continues on CIWA protocol. Blood cultures are pending. General surgery is evaluating the patient and will determine when she will go to surgery. I discussed the case with them today. Other than tremulousness and some pain in her right foot patient has no new complaints. 10/13/2019 Patient appears to be comfortable and sleeping in bed during encounter. She is arousable but quickly goes back to sleep. Wound is perhaps healing slightly but infection not be controlled without definitive surgical management. Appreciate general surgery following with us and planning out her surgical course. COVID- 19 testing is still pending and once this is back she will likely be appropriate for the OR if surgery agrees. Continuing IV antibiotics and pain management. Continuing CIWA protocol for alcohol withdrawal which appears to be quite effective. Patient does not express any new complaints other than right foot pain. 10/14/2019 Infectious disease consult placed. COVID-19 testing is negative. Patient had discussion with Dr. Markham today about surgery and she continues to refuse amputation. I spoke with surgery myself today and he believes patient's right foot is not surgically salvageable and she would need a BKA which she is currently refusing. I have consulted ID for help determining choice and duration of IV antibiotics which patient will need for several weeks to treat her osteomyelitis which surgery has confirmed does actually probe to bone. I explained this plan in detail to the patient and told her to let us know if she would like surgery and I will contact the surgeon to schedule this. She has no new complaints today. Plan to stop CIWA protocol tomorrow if she is no longer showing signs of withdrawal as patient is frequently requesting Ativan without acute signs of withdrawal. 10/15/2019-patient is refusing amputation of the right lower leg. She wants to try the IV antibiotics. She expressed a desire to sign the [facility] medical advice today to take care of the issues at home later on she changed her mind decided to stay in the hospital for further management. Presently she is on IV Zosyn and vancomycin. Blood cultures are positive for gram-positive cocci in clusters. Comfortably in the chair communicating well. 10/16/2019- is at bedside he tried to convince the patient to go for surgery. Patient is reluctant and she said she is afraid of left below-knee amputation. She wants to go home for a week and come back for surgery. I explained to her that she may have to sign AMA if she really wants to do that. Patient changed her mind decided to stay in the hospital. Vanco trough is 44 and creatinine jumped from 0.7 to3.3. Vancomycin is on hold at this time. 10/17/2019-patient is comfortably in the bed communicating well. Initially agreed for a left BKA then changed her mind. She wants to wait until tomorrow. T-max is 98.3 at this time. vancomycin trough is 37. Plan is to continue to hold vancomycin at this time. Reason For Visit: OSTEOMYELITIS RIGHT FOOT, DM ULCER Physical Exam Vital Signs: Temp Pulse Resp BP Pulse Ox 97.9 F 71 16 82/60 L 95 10/17/19 08:43 10/17/19 08:43 10/17/19 08:43 10/17/19 10:04 10/17/19 08:43 Intake & Output 10/16/19 10/17/19 10/18/19 06:59 06:59 06:59 Intake Total 820 1940 Output Total 350 Balance 820 1590 Weight 86.5 kg 90 kg General appearance: PRESENT: no acute distress Head exam: PRESENT: atraumatic Eye exam: PRESENT: conjunctiva pale, PERRLA Mouth exam: PRESENT: moist, tongue midline Neck exam: ABSENT: carotid bruit, JVD, lymphadenopathy, thyromegaly Respiratory exam: PRESENT: decreased breath sounds Cardiovascular exam: PRESENT: RRR. ABSENT: diastolic murmur, rubs, systolic murmur GI/Abdominal exam: PRESENT: normal bowel sounds, soft. ABSENT: distended, guarding, mass, organolmegaly, rebound, tenderness Rectal exam: PRESENT: deferred Extremities exam: PRESENT: full ROM. ABSENT: calf tenderness, clubbing, pedal edema Neurological exam: PRESENT: alert, awake, oriented to person, oriented to place, oriented to time, oriented to situation, CN II-XII grossly intact. ABSENT: motor sensory deficit Psychiatric exam: PRESENT: appropriate affect, normal mood. ABSENT: homicidal ideation, suicidal ideation Skin exam: PRESENT: dry, intact, warm. ABSENT: cyanosis, rash Results Laboratory Results: 10/17/19 05:33 10/17/19 05:33 10/16/19 10/16/19 10/17/19 08:47 18:16 05:33 WBC 8.7 7.9 RBC 2.86 L 2.57 L Hgb 9.6 L D 8.6 L Hct 28.3 L 25.2 L MCV 99 H 98 H MCH 33.6 H 33.4 MCHC 34.0 34.1 RDW 21.2 H 20.9 H Plt Count 151 135 L Seg Neutrophils % 71.6 65.4 Sodium Potassium Chloride Carbon Dioxide Anion Gap BUN Creatinine Est GFR ( Amer) Glucose Calcium Magnesium Total Bilirubin AST Alkaline Phosphatase Total Protein Albumin Blood Type O POSITIVE Antibody Screen NEGATIVE 10/17/19 05:33 WBC RBC Hgb Hct MCV MCH MCHC RDW Plt Count Seg Neutrophils % Sodium 131.4 L Potassium 4.2 Chloride 103 Carbon Dioxide 21 L Anion Gap 7 BUN 18 Creatinine 4.10 H Est GFR ( Amer) 14 L Glucose 68 L Calcium 8.9 Magnesium 1.8 Total Bilirubin 0.9 AST 37 H Alkaline Phosphatase 123 Total Protein 6.8 Albumin 2.7 L Blood Type Antibody Screen 10/11/19 10:45 Blood Blood Culture - Final NO GROWTH IN 5 DAYS 10/11/19 10:07 Blood Blood Culture - Final Staphylococcus Hominis Impressions: Venous Doppler Study 10/11/19 13:03 IMPRESSION: NO EVIDENCE DVT OR SVT IN THE RIGHT LEG. Head CT 10/13/19 00:00 IMPRESSION: Focal soft tissue swelling overlying the right frontal bone. No underlying fracture. No acute intracranial event. EVIDENCE OF ACUTE STROKE: NO. Assessment and Plan - Diagnosis (1) Osteomyelitis Qualifiers: Osteomyelitis type: other acute Osteomyelitis location: foot Laterality: right Qualified Code(s): M86.171 - Other acute osteomyelitis, right ankle and foot Is this a current diagnosis for this admission?: Yes Plan: 10/12/2019 Patient with osteomyelitis of the fourth toe and metatarsal as well as the fifth metatarsal with associated nonhealing ulcer. Patient is still resistant to a below-knee amputation. But she is willing to undergo fourth toe amputation along with resection of her fourth and fifth metatarsal. Patient is not septic and we will still await her COVID testing [place] or to taking her to surgery. Her alcohol withdrawal treatment appears to be progressing well. We will make the patient n.p.o. for possible surgery tomorrow if COVID testing returns. 10/13/2019 Still await COVID testing for patient to be appropriate for OR per general surgery General surgery still following, patient prefers to have foot preserving surgery although surgeon told patient she will likely need a BKA in the future despite conservative surgery now. Patient does not want BKA at this time Antibiotics continue 10/13/2021 ID consult to determine choice and duration of antibiotics as patient is refusing surgery; plan on needing PICC line and home infusions to be set up by case management Patient will let us know if she changes her mind about the amputation, currently still refusing BKA, surgery does not believe her foot can be salvaged with a minor procedure 10/15/2019-patient is receiving IV Zosyn and vancomycin blood cultures are positive for gram-positive cocci in clusters. ID consult was done surgical consult was done the recommendation is right BKA. Patient is refusing to consider right BKA at this time wants to continue IV antibiotic therapy. Patient understood and aware of the significant morbidity and mortality associated with delaying the surgery. 10/16/2019-patient is presently on IV Zosyn, Vanco trough is 44 and vancomycin is on hold. Patient is not willing to go for right BKA at this time. As per the surgical team wound is surgically nonsalvageable. Plan is to continue the present management. Patient's is at bedside he is in agreement with the right BKA and he is trying his best to convince the patient. 10/17/2019-patient is presently on IV Zosyn vancomycin is on hold because of the elevated trough levels. Patient is not giving a definite answer for surgery at this time. In the meantime plan is to continue the IV antibiotic therapy. (2) Chronic narcotic dependence Is this a current diagnosis for this admission?: Yes Plan: Per patient, takes long-acting morphine, short acting narcotics, and takes a fentanyl patch 25 mcg Home medications continued the patient does not wear a fentanyl patch on exam and this is not new medication history. We will need to confirm that she uses this before continuing it (3) JENNIFER (obstructive sleep apnea) Is this a current diagnosis for this admission?: Yes Plan: Okay for RT to give CPAP or for patient to use her own (4) Diabetic foot ulcer associated with type 2 diabetes mellitus Qualifiers: Diabetic foot ulcer location: midfoot Laterality: right Is this a current diagnosis for this admission?: Yes Plan: As above 10/15/2019-patient admitted with nonhealing diabetic ulcer and treated as an outpatient with antibiotic therapy. Presently on IV Zosyn and vancomycin, blood culture positive for gram-positive cocci in clusters. Patient vehemently refusing surgery at this time. As per the surgical team right lower leg is nonsalvageable. (5) Alcohol withdrawal Qualifiers: Complication of substance-induced condition: uncomplicated Qualified Code(s): F10.230 - Alcohol dependence with withdrawal, uncomplicated Is this a current diagnosis for this admission?: Yes Plan: Per patient never has had withdrawal in the past CIWA protocol As needed IV Ativan available Counseled on cessation Drinks 24 beers per day 10/12/2019 Still tremulous but states Ativan is helping this 10/13/2019 Alcohol withdrawal seems to be leveling off and resolving Continue CIWA 10/13/2021 Only requesting Ativan though she is not exhibiting any signs of withdrawal, plan to stop CIWA tomorrow if she is no longer showing withdrawal signs at all (6) TONYA (acute kidney injury) Is this a current diagnosis for this admission?: Yes Plan: 10/16/2019-creatinine today is 3.3 and yesterday's creatinine 0.7. Acute kidney injury most likely due to vancomycin toxicity. Vancomycin trough is 44 at this time. Vancomycin is on hold. Plan is to repeat the labs tomorrow. 10/17/2019-serum creatinine today is 4.1. Continue to trend up. Most likely secondary to vancomycin toxicity. Latest Vanco trough level is 37. (7) Anemia Is this a current diagnosis for this admission?: No Plan: 10/16/19-patient has history of anemia of chronic disease hemoglobin 7.4 to give 1 unit of blood transfusion today. And to repeat the labs tomorrow. - Time Anticipated Discharge Disposition: Longterm Facility Anticipated Discharge Timeframe: within 72 hours
[2019-10-17] MEDS: BUSPIRONE HCL 10 MG TABLET PO SCH ×2 (13:05→21:28)
[2019-10-17] MEDS: FUROSEMIDE 40 MG TABLET PO SCH (17:42)
[2019-10-17] MEDS: TRAZODONE HCL 50 MG TABLET PO SCH (21:28)
[2019-10-18] MEDS: PIPERACILLIN SODIUM/TAZOBACTAM 2.25 GM in NORMAL SALINE 50 ML IV SCH ×4 (05:05→23:37)
[2019-10-18] MEDS: MORPHINE SULFATE SR 15 MG TABLET PO SCH ×3 (05:05→14:02)
[2019-10-18] MEDS: BUSPIRONE HCL 10 MG TABLET PO SCH ×3 (05:05→21:45)
[2019-10-18] MEDS: INSULIN LISPRO 100 UNIT/ML 3 ML VIAL SUBCUT SCH ×4 (09:52→21:49)
[2019-10-18] MEDS: DOCUSATE SODIUM 100 MG CAPSULE PO SCH (10:04)
[2019-10-18] MEDS: ENOXAPARIN SODIUM INJ 30 MG/0.3 ML DISP.SYRIN SUBCUT SCH (10:05)
[2019-10-18] MEDS: ESCITALOPRAM OXALATE 10 MG TABLET PO SCH (10:06)
[2019-10-18] MEDS: POTASSIUM CHLORIDE 10 MEQ TABLET.ER PO SCH ×3 (10:06→21:53)
--- NOTE | 2019-10-18 16:03 | PDOC PROGRESS REPORT ---
Subjective Progress Note for:: 10/18/19 Subjective:: 10/12/2019 Patient has mildly low potassium which we will replete and her lactic acid is notably lower today. She seems to be improved although she still has some trem ulousness which she states is helped greatly by Ativan. She continues on CIWA protocol. Blood cultures are pending. General surgery is evaluating the patient and will determine when she will go to surgery. I discussed the case with them today. Other than tremulousness and some pain in her right foot patient has no new complaints. 10/13/2019 Patient appears to be comfortable and sleeping in bed during encounter. She is arousable but quickly goes back to sleep. Wound is perhaps healing slightly but infection not be controlled without definitive surgical management. Appreciate general surgery following with us and planning out her surgical course. COVID- 19 testing is still pending and once this is back she will likely be appropriate for the OR if surgery agrees. Continuing IV antibiotics and pain management. Continuing CIWA protocol for alcohol withdrawal which appears to be quite effective. Patient does not express any new complaints other than right foot pain. 10/14/2019 Infectious disease consult placed. COVID-19 testing is negative. Patient had discussion with Dr. Markham today about surgery and she continues to refuse amputation. I spoke with surgery myself today and he believes patient's right foot is not surgically salvageable and she would need a BKA which she is currently refusing. I have consulted ID for help determining choice and duration of IV antibiotics which patient will need for several weeks to treat her osteomyelitis which surgery has confirmed does actually probe to bone. I explained this plan in detail to the patient and told her to let us know if she would like surgery and I will contact the surgeon to schedule this. She has no new complaints today. Plan to stop CIWA protocol tomorrow if she is no longer showing signs of withdrawal as patient is frequently requesting Ativan without acute signs of withdrawal. 10/15/2019-patient is refusing amputation of the right lower leg. She wants to try the IV antibiotics. She expressed a desire to sign the [facility] medical advice today to take care of the issues at home later on she changed her mind decided to stay in the hospital for further management. Presently she is on IV Zosyn and vancomycin. Blood cultures are positive for gram-positive cocci in clusters. Comfortably in the chair communicating well. 10/16/2019- is at bedside he tried to convince the patient to go for surgery. Patient is reluctant and she said she is afraid of left below-knee amputation. She wants to go home for a week and come back for surgery. I explained to her that she may have to sign AMA if she really wants to do that. Patient changed her mind decided to stay in the hospital. Vanco trough is 44 and creatinine jumped from 0.7 to3.3. Vancomycin is on hold at this time. 10/17/2019-patient is comfortably in the bed communicating well. Initially agreed for a left BKA then changed her mind. She wants to wait until tomorrow. T-max is 98.3 at this time. vancomycin trough is 37. Plan is to continue to hold vancomycin at this time. 10/18/2019 Patient persists that she does not want surgery and she wants to go home on oral antibiotics instead. I told her that all the physicians involved in her care have agreed that a course of antibiotics will very likely not be effective clearing her infection and she will need amputation anyway. She is not able to be discharged today due to her creatinine being approximately 4 yesterday and vancomycin was stopped. No labs were ordered for today and these have been ordered at this time. Her has come to the hospital and is speaking with her about agreeing to surgery. Patient states she understands the risks including and more severe amputation requirements later on if her infection is left untreated by surgery. She has no new complaints today. Reason For Visit: OSTEOMYELITIS RIGHT FOOT, DM ULCER Physical Exam Vital Signs: Temp Pulse Resp BP Pulse Ox 97.1 F 73 17 115/62 97 10/18/19 07:49 10/18/19 07:49 10/18/19 07:49 10/18/19 07:49 10/18/19 07:49 Intake & Output 10/17/19 10/18/19 10/19/19 06:59 06:59 06:59 Intake Total 1940 1080 Output Total 350 Balance 1590 1080 Weight 90 kg 96.9 kg 96.9 kg General appearance: PRESENT: no acute distress, well-developed, well-nourished Head exam: PRESENT: atraumatic, normocephalic Eye exam: PRESENT: conjunctiva pink Mouth exam: PRESENT: moist Respiratory exam: PRESENT: clear to auscultation kristina. ABSENT: rales, rhonchi, wheezes Cardiovascular exam: PRESENT: RRR. ABSENT: diastolic murmur, rubs, systolic murmur GI/Abdominal exam: PRESENT: normal bowel sounds, soft. ABSENT: distended, guarding, mass, organolmegaly, rebound, tenderness Neurological exam: PRESENT: alert, awake, oriented to person, oriented to place, oriented to time, oriented to situation Psychiatric exam: PRESENT: appropriate affect, normal mood Skin exam: PRESENT: dry, warm, other - Right foot osteomyelitis wound with minimal healing Results Laboratory Results: 10/17/19 05:33 10/17/19 05:33 Impressions: Venous Doppler Study 10/11/19 13:03 IMPRESSION: NO EVIDENCE DVT OR SVT IN THE RIGHT LEG. Head CT 10/13/19 00:00 IMPRESSION: Focal soft tissue swelling overlying the right frontal bone. No underlying fracture. No acute intracranial event. EVIDENCE OF ACUTE STROKE: NO. Assessment and Plan - Diagnosis (1) Osteomyelitis Qualifiers: Osteomyelitis type: other acute Osteomyelitis location: foot Laterality: right Qualified Code(s): M86.171 - Other acute osteomyelitis, right ankle and foot Is this a current diagnosis for this admission?: Yes Plan: 10/12/2019 Patient with osteomyelitis of the fourth toe and metatarsal as well as the fifth metatarsal with associated nonhealing ulcer. Patient is still resistant to a below-knee amputation. But she is willing to undergo fourth toe amputation along with resection of her fourth and fifth metatarsal. Patient is not septic and we will still await her COVID testing prior to taking her to surgery. Her alcohol withdrawal treatment appears to be progressing well. We will make the patient n.p.o. for possible surgery tomorrow if COVID testing returns. 10/13/2019 Still await COVID testing for patient to be appropriate for OR per general surgery General surgery still following, patient prefers to have foot preserving surgery although surgeon told patient she will likely need a BKA in the future despite conservative surgery now. Patient does not want BKA at this time Antibiotics continue 10/13/2021 ID consult to determine choice and duration of antibiotics as patient is refusing surgery; plan on needing PICC line and home infusions to be set up by case management Patient will let us know if she changes her mind about the amputation, currently still refusing BKA, surgery does not believe her foot can be salvaged with a minor procedure 10/15/2019-patient is receiving IV Zosyn and vancomycin blood cultures are pos itive for gram-positive cocci in clusters. ID consult was done surgical consult was done the recommendation is right BKA. Patient is refusing to consider right BKA at this time wants to continue IV antibiotic therapy. Patient understood and aware of the significant morbidity and mortality associated with delaying the surgery. 10/16/2019-patient is presently on IV Zosyn, Vanco trough is 44 and vancomycin is on hold. Patient is not willing to go for right BKA at this time. As per the surgical team wound is surgically nonsalvageable. Plan is to continue the present management. Patient's is at bedside he is in agreement with the right BKA and he is trying his best to convince the patient. 10/17/2019-patient is presently on IV Zosyn vancomycin is on hold because of the elevated trough levels. Patient is not giving a definite answer for surgery at this time. In the meantime plan is to continue the IV antibiotic therapy. 10/18/2019 No real improvement in the wound healing Zosyn continued, vancomycin stopped due to TONYA Patient continues to refuse surgery and states she understands the risks of doing so (2) Diabetic foot ulcer associated with type 2 diabetes mellitus Qualifiers: Diabetic foot ulcer location: midfoot Laterality: right Is this a current diagnosis for this admission?: Yes (3) Chronic narcotic dependence Is this a current diagnosis for this admission?: Yes (4) COPD (chronic obstructive pulmonary disease) Is this a current diagnosis for this admission?: Yes (5) JENNIFER (obstructive sleep apnea) Is this a current diagnosis for this admission?: Yes (6) Depression Qualifiers: Is this a current diagnosis for this admission?: Yes (7) Diabetes type 2, controlled Qualifiers: Is this a current diagnosis for this admission?: Yes (8) Alcohol withdrawal Qualifiers: Complication of substance-induced condition: uncomplicated Qualified Code(s): F10.230 - Alcohol dependence with withdrawal, uncomplicated Is this a current diagnosis for this admission?: Yes (9) TONYA (acute kidney injury) Is this a current diagnosis for this admission?: Yes Plan: 10/16/2019-creatinine today is 3.3 and yesterday's creatinine 0.7. Acute kidney injury most likely due to vancomycin toxicity. Vancomycin trough is 44 at this time. Vancomycin is on hold. Plan is to repeat the labs tomorrow. 10/17/2019-serum creatinine today is 4.1. Continue to trend up. Most likely secondary to vancomycin toxicity. Latest Vanco trough level is 37. 10/18/2019 No labs have been ordered for today, BMP ordered daily now, trend creatinine Vancomycin stopped yesterday - Time Time Spent with patient: 25-34 minutes Medications reviewed and adjusted accordingly: Yes Anticipated Discharge Disposition: Home, Self Care Anticipated Discharge Timeframe: within 72 hours - Inpatient Certification Based on my medical assessment, after consideration of the patient's comorbidit ies, presenting symptoms, or acuity I expect that the services needed warrant INPATIENT care.: Yes I certify that my determination is in accordance with my understanding of [facility]'s requirements for reasonable and necessary INPATIENT services [42 CFR 412.3e].: Yes Medical Necessity: Significant Comorbidiites Make Outpatient Treatment Too Risky, Need Close Monitoring Due to Risk of Patient Decompensation, Need for IV Antibiotics, Risk of Complication if Not Cared For in Hospital, Risk of Diagnosis Which Will Require Inpatient Eval/Care/Monitoring
[2019-10-18 19:57] LABS: ANION GAP 9 (5-19); BLOOD UREA NITROGEN 19 mg/dL (7-20); CARBON DIOXIDE 19 mmol/L (22-30); CHLORIDE 104 mmol/L (98-107); GLUCOSE 104 mg/dL (75-110)
[2019-10-18] MEDS: TRAZODONE HCL 50 MG TABLET PO SCH (21:45)
[2019-10-18 23:14] LABS: VANCOMYCIN,TROUGH 28.7 ug/mL (5.0-20.0)
[2019-10-19] MEDS: PIPERACILLIN SODIUM/TAZOBACTAM 2.25 GM in NORMAL SALINE 50 ML IV SCH ×4 (05:28→23:36)
[2019-10-19] MEDS: BUSPIRONE HCL 10 MG TABLET PO SCH ×3 (05:28→21:51)
[2019-10-19] MEDS: INSULIN LISPRO 100 UNIT/ML 3 ML VIAL SUBCUT SCH ×4 (08:27→21:51)
[2019-10-19] MEDS: MORPHINE SULFATE SR 15 MG TABLET PO SCH ×2 (11:01→21:51)
[2019-10-19] MEDS: ESCITALOPRAM OXALATE 10 MG TABLET PO SCH (11:02)
[2019-10-19] MEDS: DOCUSATE SODIUM 100 MG CAPSULE PO SCH (11:03)
[2019-10-19 11:21] LABS: ANION GAP 8 (5-19); BLOOD UREA NITROGEN 20 mg/dL (7-20); CALCIUM 8.8 mg/dL (8.4-10.2); CARBON DIOXIDE 18 mmol/L (22-30); CHLORIDE 106 mmol/L (98-107); GLUCOSE 107 mg/dL (75-110); POTASSIUM 4.4 mmol/L (3.6-5.0)
[2019-10-19] MEDS: NORMAL SALINE 1000 ML 1,000 ML IV PRN (12:02)
[2019-10-19] MEDS: LORAZEPAM INJ 2 MG/1 ML VIAL IV PRN (12:03)
[2019-10-19] MEDS ORDERED: LORAZEPAM INJ 2 MG/1 ML VIAL IV PRN (12:16)
--- NOTE | 2019-10-19 16:51 | PDOC PROGRESS REPORT ---
Subjective Progress Note for:: 10/19/19 Subjective:: 10/12/2019 Patient has mildly low potassium which we will replete and her lactic acid is notably lower today. She seems to be improved although she still has some trem ulousness which she states is helped greatly by Ativan. She continues on CIWA protocol. Blood cultures are pending. General surgery is evaluating the patient and will determine when she will go to surgery. I discussed the case with them today. Other than tremulousness and some pain in her right foot patient has no new complaints. 10/13/2019 Patient appears to be comfortable and sleeping in bed during encounter. She is arousable but quickly goes back to sleep. Wound is perhaps healing slightly but infection not be controlled without definitive surgical management. Appreciate general surgery following with us and planning out her surgical course. COVID- 19 testing is still pending and once this is back she will likely be appropriate for the OR if surgery agrees. Continuing IV antibiotics and pain management. Continuing CIWA protocol for alcohol withdrawal which appears to be quite effective. Patient does not express any new complaints other than right foot pain. 10/14/2019 Infectious disease consult placed. COVID-19 testing is negative. Patient had discussion with Dr. Markham today about surgery and she continues to refuse amputation. I spoke with surgery myself today and he believes patient's right foot is not surgically salvageable and she would need a BKA which she is currently refusing. I have consulted ID for help determining choice and duration of IV antibiotics which patient will need for several weeks to treat her osteomyelitis which surgery has confirmed does actually probe to bone. I explained this plan in detail to the patient and told her to let us know if she would like surgery and I will contact the surgeon to schedule this. She has no new complaints today. Plan to stop CIWA protocol tomorrow if she is no longer showing signs of withdrawal as patient is frequently requesting Ativan without acute signs of withdrawal. 10/15/2019-patient is refusing amputation of the right lower leg. She wants to try the IV antibiotics. She expressed a desire to sign the [facility] medical advice today to take care of the issues at home later on she changed her mind decided to stay in the hospital for further management. Presently she is on IV Zosyn and vancomycin. Blood cultures are positive for gram-positive cocci in clusters. Comfortably in the chair communicating well. 10/16/2019- is at bedside he tried to convince the patient to go for surgery. Patient is reluctant and she said she is afraid of left below-knee amputation. She wants to go home for a week and come back for surgery. I explained to her that she may have to sign AMA if she really wants to do that. Patient changed her mind decided to stay in the hospital. Vanco trough is 44 and creatinine jumped from 0.7 to3.3. Vancomycin is on hold at this time. 10/17/2019-patient is comfortably in the bed communicating well. Initially agreed for a left BKA then changed her mind. She wants to wait until tomorrow. T-max is 98.3 at this time. vancomycin trough is 37. Plan is to continue to hold vancomycin at this time. 10/18/2019 Patient persists that she does not want surgery and she wants to go home on oral antibiotics instead. I told her that all the physicians involved in her care have agreed that a course of antibiotics will very likely not be effective clearing her infection and she will need amputation anyway. She is not able to be discharged today due to her creatinine being approximately 4 yesterday and vancomycin was stopped. No labs were ordered for today and these have been ordered at this time. Her has come to the hospital and is speaking with her about agreeing to surgery. Patient states she understands the risks including and more severe amputation requirements later on if her infection is left untreated by surgery. She has no new complaints today. 10/19/2019 Rechecked labs and creatinine is finally starting to come down. I discussed at length with the patient that she cannot be discharged until her creatinine is at or near her baseline. I suspect she has ATN from vancomycin, seems to be improving since vancomycin was discontinued. Patient is still adamant that she does not want surgery. We may need to adjust her antibiotics at discharge based on her renal function but we will wait and see as I expect her to be in the hospital for at least another 2 to 3 days while her creatinine recovers. Restarted patient's home long-acting morphine at her request. Normal saline gentle IV fluids. Hold diuretics. Trend BMP. Patient's only complaints are her chronic pain in her feet. Reason For Visit: OSTEOMYELITIS RIGHT FOOT, DM ULCER Physical Exam Vital Signs: Temp Pulse Resp BP Pulse Ox 97.9 F 70 17 94/52 L 97 10/19/19 16:31 10/19/19 16:31 10/19/19 16:31 10/19/19 16:31 10/19/19 16:31 Intake & Output 10/18/19 10/19/19 10/20/19 06:59 06:59 06:59 Intake Total 1080 150 Balance 1080 150 Weight 96.9 kg 94.5 kg General appearance: PRESENT: no acute distress, well-developed, well-nourished Head exam: PRESENT: atraumatic, normocephalic Eye exam: PRESENT: conjunctiva pink Mouth exam: PRESENT: moist Respiratory exam: PRESENT: clear to auscultation kristina. ABSENT: rales, rhonchi, wheezes Cardiovascular exam: PRESENT: RRR. ABSENT: diastolic murmur, rubs, systolic murmur GI/Abdominal exam: PRESENT: normal bowel sounds, soft. ABSENT: distended, guarding, mass, organolmegaly, rebound, tenderness Neurological exam: PRESENT: alert, awake, oriented to person, oriented to place, oriented to time, oriented to situation. ABSENT: motor sensory deficit Psychiatric exam: PRESENT: appropriate affect, normal mood Skin exam: PRESENT: dry, warm, other - Diabetic ulcer on right foot very slow to heal, tender Results Laboratory Results: 10/17/19 05:33 10/19/19 10:44 10/18/19 10/19/19 18:44 10:44 Sodium 131.7 L 132.2 L Potassium 5.0 4.4 Chloride 104 106 Carbon Dioxide 19 L 18 L Anion Gap 9 8 BUN 19 20 Creatinine 4.54 H 3.79 H Est GFR ( Amer) 12 L 15 L Glucose 104 107 Calcium 9.0 8.8 Impressions: Venous Doppler Study 10/11/19 13:03 IMPRESSION: NO EVIDENCE DVT OR SVT IN THE RIGHT LEG. Head CT 10/13/19 00:00 IMPRESSION: Focal soft tissue swelling overlying the right frontal bone. No underlying fracture. No acute intracranial event. EVIDENCE OF ACUTE STROKE: NO. Assessment and Plan - Diagnosis (1) Osteomyelitis Qualifiers: Osteomyelitis type: other acute Osteomyelitis location: foot Laterality: right Qualified Code(s): M86.171 - Other acute osteomyelitis, right ankle and foot Is this a current diagnosis for this admission?: Yes Plan: 10/12/2019 Patient with osteomyelitis of the fourth toe and metatarsal as well as the fifth metatarsal with associated nonhealing ulcer. Patient is still resistant to a below-knee amputation. But she is willing to undergo fourth toe amputation along with resection of her fourth and fifth metatarsal. Patient is not septic and we will still await her COVID testing prior to taking her to surgery. Her alcohol withdrawal treatment appears to be progressing well. We will make the patient n.p.o. for possible surgery tomorrow if COVID testing returns. 10/13/2019 Still await COVID testing for patient to be appropriate for OR per general surgery General surgery still following, patient prefers to have foot preserving surgery although surgeon told patient she will likely need a BKA in the future despite conservative surgery now. Patient does not want BKA at this time Antibiotics continue 10/13/2021 ID consult to determine choice and duration of antibiotics as patient is refusing surgery; plan on needing PICC line and home infusions to be set up by case management Patient will let us know if she changes her mind about the amputation, currently still refusing BKA, surgery does not believe her foot can be salvaged with a minor procedure 10/15/2019-patient is receiving IV Zosyn and vancomycin blood cultures are positive for gram-positive cocci in clusters. ID consult was done surgical consult was done the recommendation is right BKA. Patient is refusing to c onsider right BKA at this time wants to continue IV antibiotic therapy. Patient understood and aware of the significant morbidity and mortality associated with delaying the surgery. 10/16/2019-patient is presently on IV Zosyn, Vanco trough is 44 and vancomycin is on hold. Patient is not willing to go for right BKA at this time. As per the surgical team wound is surgically nonsalvageable. Plan is to continue the present management. Patient's is at bedside he is in agreement with the right BKA and he is trying his best to convince the patient. 10/17/2019-patient is presently on IV Zosyn vancomycin is on hold because of the elevated trough levels. Patient is not giving a definite answer for surgery at this time. In the meantime plan is to continue the IV antibiotic therapy. 10/18/2019 No real improvement in the wound healing Zosyn continued, vancomycin stopped due to TONYA Patient continues to refuse surgery and states she understands the risks of doing so 10/19/2019 Patient still does not want surgery, I have reiterated that the general surgeon would be happy to see her if she changes her mind IV Zosyn continues (2) TONYA (acute kidney injury) Is this a current diagnosis for this admission?: Yes Plan: 10/16/2019-creatinine today is 3.3 and yesterday's creatinine 0.7. Acute kidney injury most likely due to vancomycin toxicity. Vancomycin trough is 44 at this time. Vancomycin is on hold. Plan is to repeat the labs tomorrow. 10/17/2019-serum creatinine today is 4.1. Continue to trend up. Most likely secondary to vancomycin toxicity. Latest Vanco trough level is 37. 10/18/2019 No labs have been ordered for today, BMP ordered daily now, trend creatinine Vancomycin stopped yesterday 10/19/2019 Labs consistent with ATN, likely due to vancomycin which is been stopped Creatinine finally starting to come down Trend BMP Gentle normal saline IV fluids (3) Diabetic foot ulcer associated with type 2 diabetes mellitus Qualifiers: Diabetic foot ulcer location: midfoot Laterality: right Is this a current diagnosis for this admission?: Yes (4) Chronic narcotic dependence Is this a current diagnosis for this admission?: Yes (5) COPD (chronic obstructive pulmonary disease) Is this a current diagnosis for this admission?: Yes (6) JENNIFER (obstructive sleep apnea) Is this a current diagnosis for this admission?: Yes (7) Depression Qualifiers: Is this a current diagnosis for this admission?: Yes (8) Diabetes type 2, controlled Qualifiers: Is this a current diagnosis for this admission?: Yes (9) Alcohol withdrawal Qualifiers: Complication of substance-induced condition: uncomplicated Qualified Code(s): F10.230 - Alcohol dependence with withdrawal, uncomplicated Is this a current diagnosis for this admission?: Yes - Time Time Spent with patient: 15-24 minutes Medications reviewed and adjusted accordingly: Yes Anticipated Discharge Disposition: Home, Self Care Anticipated Discharge Timeframe: within 72 hours - Inpatient Certification Based on my medical assessment, after consideration of the patient's comorbidities, presenting symptoms, or acuity I expect that the services needed warrant INPATIENT care.: Yes I certify that my determination is in accordance with my understanding of Medicare's requirements for reasonable and necessary INPATIENT services [42 CFR 412.3e].: Yes Medical Necessity: Significant Comorbidiites Make Outpatient Treatment Too Risky, Need Close Monitoring Due to Risk of Patient Decompensation, Need for IV Antibiotics, Risk of Complication if Not Cared For in Hospital, Risk of Diagnosis Which Will Require Inpatient Eval/Care/Monitoring
[2019-10-19] MEDS: TRAZODONE HCL 50 MG TABLET PO SCH (21:51)
[2019-10-20] MEDS: PIPERACILLIN SODIUM/TAZOBACTAM 2.25 GM in NORMAL SALINE 50 ML IV SCH ×2 (05:15→12:37)
[2019-10-20] MEDS: BUSPIRONE HCL 10 MG TABLET PO SCH ×4 (05:16→21:23)
[2019-10-20 05:46] LABS: ANION GAP 10 (5-19); BLOOD UREA NITROGEN 20 mg/dL (7-20); CALCIUM 8.7 mg/dL (8.4-10.2); CARBON DIOXIDE 17 mmol/L (22-30); CHLORIDE 108 mmol/L (98-107); GLUCOSE 81 mg/dL (75-110); POTASSIUM 3.9 mmol/L (3.6-5.0)
[2019-10-20] MEDS: NORMAL SALINE 1000 ML 1,000 ML IV PRN ×2 (05:51→20:27)
[2019-10-20] MEDS: INSULIN LISPRO 100 UNIT/ML 3 ML VIAL SUBCUT SCH ×4 (08:43→21:23)
[2019-10-20] MEDS: MORPHINE SULFATE SR 15 MG TABLET PO SCH (10:34)
[2019-10-20] MEDS: DOCUSATE SODIUM 100 MG CAPSULE PO SCH (10:34)
[2019-10-20] MEDS: ESCITALOPRAM OXALATE 10 MG TABLET PO SCH (10:34)
[2019-10-20] MEDS ORDERED: DIAZEPAM 2 MG TABLET PO PRN (12:28)
--- NOTE | 2019-10-20 12:43 | PDOC PROGRESS REPORT ---
Subjective Progress Note for:: 10/20/19 Subjective:: 10/12/2019 Patient has mildly low potassium which we will replete and her lactic acid is notably lower today. She seems to be improved although she still has some trem ulousness which she states is helped greatly by Ativan. She continues on CIWA protocol. Blood cultures are pending. General surgery is evaluating the patient and will determine when she will go to surgery. I discussed the case with them today. Other than tremulousness and some pain in her right foot patient has no new complaints. 10/13/2019 Patient appears to be comfortable and sleeping in bed during encounter. She is arousable but quickly goes back to sleep. Wound is perhaps healing slightly but infection not be controlled without definitive surgical management. Appreciate general surgery following with us and planning out her surgical course. COVID- 19 testing is still pending and once this is back she will likely be appropriate for the OR if surgery agrees. Continuing IV antibiotics and pain management. Continuing CIWA protocol for alcohol withdrawal which appears to be quite effective. Patient does not express any new complaints other than right foot pain. 10/14/2019 Infectious disease consult placed. COVID-19 testing is negative. Patient had discussion with Dr. Markham today about surgery and she continues to refuse amputation. I spoke with surgery myself today and he believes patient's right foot is not surgically salvageable and she would need a BKA which she is currently refusing. I have consulted ID for help determining choice and duration of IV antibiotics which patient will need for several weeks to treat her osteomyelitis which surgery has confirmed does actually probe to bone. I explained this plan in detail to the patient and told her to let us know if she would like surgery and I will contact the surgeon to schedule this. She has no new complaints today. Plan to stop CIWA protocol tomorrow if she is no longer showing signs of withdrawal as patient is frequently requesting Ativan without acute signs of withdrawal. 10/15/2019-patient is refusing amputation of the right lower leg. She wants to try the IV antibiotics. She expressed a desire to sign the [facility] medical advice today to take care of the issues at home later on she changed her mind decided to stay in the hospital for further management. Presently she is on IV Zosyn and vancomycin. Blood cultures are positive for gram-positive cocci in clusters. Comfortably in the chair communicating well. 10/16/2019- is at bedside he tried to convince the patient to go for surgery. Patient is reluctant and she said she is afraid of left below-knee amputation. She wants to go home for a week and come back for surgery. I explained to her that she may have to sign AMA if she really wants to do that. Patient changed her mind decided to stay in the hospital. Vanco trough is 44 and creatinine jumped from 0.7 to3.3. Vancomycin is on hold at this time. 10/17/2019-patient is comfortably in the bed communicating well. Initially agreed for a left BKA then changed her mind. She wants to wait until tomorrow. T-max is 98.3 at this time. vancomycin trough is 37. Plan is to continue to hold vancomycin at this time. 10/18/2019 Patient persists that she does not want surgery and she wants to go home on oral antibiotics instead. I told her that all the physicians involved in her care have agreed that a course of antibiotics will very likely not be effective clearing her infection and she will need amputation anyway. She is not able to be discharged today due to her creatinine being approximately 4 yesterday and vancomycin was stopped. No labs were ordered for today and these have been ordered at this time. Her has come to the hospital and is speaking with her about agreeing to surgery. Patient states she understands the risks including and more severe amputation requirements later on if her infection is left untreated by surgery. She has no new complaints today. 10/19/2019 Rechecked labs and creatinine is finally starting to come down. I discussed at length with the patient that she cannot be discharged until her creatinine is at or near her baseline. I suspect she has ATN from vancomycin, seems to be improving since vancomycin was discontinued. Patient is still adamant that she does not want surgery. We may need to adjust her antibiotics at discharge based on her renal function but we will wait and see as I expect her to be in the hospital for at least another 2 to 3 days while her creatinine recovers. Restarted patient's home long-acting morphine at her request. Normal saline gentle IV fluids. Hold diuretics. Trend BMP. Patient's only complaints are her chronic pain in her feet. 10/20/2019 Right knee in actually darryn today after it had been going down. I ordered a UA with urine electrolytes and urine protein creatinine ratio and I have consulted nephrology and discussed the case with the advertising vice president today. Patient is a bit sleepy and I am concerned she is abusing her antianxiety and pain medication. G iven her renal failure this is likely accumulating in her bloodstream as well. I have stopped her home dose morphine and replaced it with low-dose oral Dilaudid to be used sparingly. I have also discontinued IV anxiety lytics and added oral Valium also to be used sparingly. I have stopped her Zosyn and replace it with cefepime renally dosed. Patient has no specific complaints today. Reason For Visit: OSTEOMYELITIS RIGHT FOOT, DM ULCER Physical Exam Vital Signs: Temp Pulse Resp BP Pulse Ox 98.0 F 75 16 117/63 95 10/20/19 08:25 10/20/19 08:25 10/20/19 08:25 10/20/19 08:25 10/20/19 08:25 Intake & Output 10/19/19 10/20/19 10/21/19 06:59 06:59 06:59 Intake Total 150 1200 Balance 150 1200 Weight 94.5 kg 89.6 kg General appearance: PRESENT: no acute distress, well-developed, well-nourished Head exam: PRESENT: atraumatic, normocephalic Eye exam: PRESENT: conjunctiva pink Mouth exam: PRESENT: moist Respiratory exam: PRESENT: clear to auscultation kristina. ABSENT: rales, rhonchi, wheezes Cardiovascular exam: PRESENT: RRR. ABSENT: diastolic murmur, rubs, systolic murmur GI/Abdominal exam: PRESENT: normal bowel sounds, soft. ABSENT: distended, guarding, mass, organolmegaly, rebound, tenderness Neurological exam: PRESENT: alert, awake, oriented to person, oriented to place, oriented to time, oriented to situation Psychiatric exam: PRESENT: appropriate affect, normal mood Skin exam: PRESENT: dry, intact, warm, other - Right diabetic foot wound still not healed yet Results Laboratory Results: 10/17/19 05:33 10/20/19 04:50 10/20/19 04:50 Sodium 134.5 L Potassium 3.9 Chloride 108 H Carbon Dioxide 17 L Anion Gap 10 BUN 20 Creatinine 4.11 H Est GFR ( Amer) 14 L Glucose 81 Calcium 8.7 Impressions: Venous Doppler Study 10/11/19 13:03 IMPRESSION: NO EVIDENCE DVT OR SVT IN THE RIGHT LEG. Head CT 10/13/19 00:00 IMPRESSION: Focal soft tissue swelling overlying the right frontal bone. No underlying fracture. No acute intracranial event. EVIDENCE OF ACUTE STROKE: NO. Assessment and Plan - Diagnosis (1) Osteomyelitis Qualifiers: Osteomyelitis type: other acute Osteomyelitis location: foot Laterality: right Qualified Code(s): M86.171 - Other acute osteomyelitis, right ankle and foot Is this a current diagnosis for this admission?: Yes Plan: 10/12/2019 Patient with osteomyelitis of the fourth toe and metatarsal as well as the fifth metatarsal with associated nonhealing ulcer. Patient is still resistant to a below-knee amputation. But she is willing to undergo fourth toe amputation along with resection of her fourth and fifth metatarsal. Patient is not septic and we will still await her COVID testing prior to taking her to surgery. Her alcohol withdrawal treatment appears to be progressing well. We will make the patient n.p.o. for possible surgery tomorrow if COVID testing returns. 10/13/2019 Still await COVID testing for patient to be appropriate for OR per general surgery General surgery still following, patient prefers to have foot preserving surgery although surgeon told patient she will likely need a BKA in the future despite conservative surgery now. Patient does not want BKA at this time Antibiotics continue 10/13/2021 ID consult to determine choice and duration of antibiotics as patient is refusing surgery; plan on needing PICC line and home infusions to be set up by case management Patient will let us know if she changes her mind about the amputation, currentl y still refusing BKA, surgery does not believe her foot can be salvaged with a minor procedure 10/15/2019-patient is receiving IV Zosyn and vancomycin blood cultures are positive for gram-positive cocci in clusters. ID consult was done surgical consult was done the recommendation is right BKA. Patient is refusing to consider right BKA at this time wants to continue IV antibiotic therapy. Patient understood and aware of the significant morbidity and mortality associated with delaying the surgery. 10/16/2019-patient is presently on IV Zosyn, Vanco trough is 44 and vancomycin is on hold. Patient is not willing to go for right BKA at this time. As per the surgical team wound is surgically nonsalvageable. Plan is to continue the present management. Patient's is at bedside he is in agreement with the right BKA and he is trying his best to convince the patient. 10/17/2019-patient is presently on IV Zosyn vancomycin is on hold because of the elevated trough levels. Patient is not giving a definite answer for surgery at this time. In the meantime plan is to continue the IV antibiotic therapy. 10/18/2019 No real improvement in the wound healing Zosyn continued, vancomycin stopped due to TONYA Patient continues to refuse surgery and states she understands the risks of doing so 10/19/2019 Patient still does not want surgery, I have reiterated that the general surgeon would be happy to see her if she changes her mind IV Zosyn continues 10/20/2019 Changed Zosyn to cefepime due to renal failure and this medication is renally dosed Patient still states she does not want surgery (2) TONYA (acute kidney injury) Is this a current diagnosis for this admission?: Yes Plan: 10/16/2019-creatinine today is 3.3 and yesterday's creatinine 0.7. Acute kidney injury most likely due to vancomycin toxicity. Vancomycin trough is 44 at this time. Vancomycin is on hold. Plan is to repeat the labs tomorrow. 10/17/2019-serum creatinine today is 4.1. Continue to trend up. Most likely secondary to vancomycin toxicity. Latest Vanco trough level is 37. 10/18/2019 No labs have been ordered for today, BMP ordered daily now, trend creatinine Vancomycin stopped yesterday 10/19/2019 Labs consistent with ATN, likely due to vancomycin which is been stopped Creatinine finally starting to come down Trend BMP Gentle normal saline IV fluids 10/20/2019 Creatinine worsened above 4, consulted nephrology and discussed the case with them Changed pain and anxiety medications to avoid oversedation in the setting of renal failure Normal saline continues Urine electrolytes UA with reflex culture Urine protein creatinine ratio Consider bladder ultrasound to rule out retention (3) Diabetic foot ulcer associated with type 2 diabetes mellitus Qualifiers: Diabetic foot ulcer location: midfoot Laterality: right Is this a current diagnosis for this admission?: Yes Plan: As above 10/15/2019-patient admitted with nonhealing diabetic ulcer and treated as an outpatient with antibiotic therapy. Presently on IV Zosyn and vancomycin, blood culture positive for gram-positive cocci in clusters. Patient vehemently refusing surgery at this time. As per the surgical team right lower leg is nons alvageable. 10/20/2019 Blood sugar stable Refusing surgery (4) Chronic narcotic dependence Is this a current diagnosis for this admission?: Yes (5) COPD (chronic obstructive pulmonary disease) Is this a current diagnosis for this admission?: Yes (6) JENNIFER (obstructive sleep apnea) Is this a current diagnosis for this admission?: Yes (7) Depression Qualifiers: Is this a current diagnosis for this admission?: Yes (8) Diabetes type 2, controlled Qualifiers: Is this a current diagnosis for this admission?: Yes (9) Alcohol withdrawal Qualifiers: Complication of substance-induced condition: uncomplicated Qualified Code(s): F10.230 - Alcohol dependence with withdrawal, uncomplicated Is this a current diagnosis for this admission?: Yes - Time Time Spent with patient: 25-34 minutes Medications reviewed and adjusted accordingly: Yes Anticipated Discharge Disposition: Home, Self Care Anticipated Discharge Timeframe: within 72 hours - Inpatient Certification Based on my medical assessment, after consideration of the patient's comorbidities, presenting symptoms, or acuity I expect that the services needed warrant INPATIENT care.: Yes I certify that my determination is in accordance with my understanding of [facility]'s requirements for reasonable and necessary INPATIENT services [42 CFR 412.3e].: Yes Medical Necessity: Significant Comorbidiites Make Outpatient Treatment Too Risky, Need Close Monitoring Due to Risk of Patient Decompensation, Need for IV Antibiotics, Risk of Complication if Not Cared For in Hospital, Risk of Diagnosis Which Will Require Inpatient Eval/Care/Monitoring
[2019-10-20 13:08] LABS: APPEARANCE,URINE SLIGHTLY-CLOUDY; BILIRUBIN,URINE NEGATIVE (NEGATIVE); COLOR,URINE YELLOW; GLUCOSE, URINE NEGATIVE (NEGATIVE); KETONES,URINE NEGATIVE (NEGATIVE); PROTEIN,URINE NEGATIVE (NEGATIVE); URINE SPECIFIC GRAVITY 1.008; UROBILINOGEN,URINE NEGATIVE mg/dL (<2.0)
[2019-10-20 13:25] LABS: UR PRO/CREAT RATIO RESULT 0.4 mg/mg (0.0-0.2); URINE CREATININE 70.9 mg/dL (15-278); URINE PROTEIN 30.9 mg/dL (<12)
--- NOTE | 2019-10-20 15:55 | RADIOLOGY REPORT (SQ) ---
EXAM DESCRIPTION: U/S RETROPERITON (RENAL/AORTA) IMAGES COMPLETED DATE/TIME: 10/20/2019 3:28 pm REASON FOR STUDY: TONYA COMPARISON: None. TECHNIQUE: Dynamic and static grayscale images acquired of the kidneys and bladder and recorded on P ACS. Additional selected color Doppler and spectral images recorded. LIMITATIONS: None. FINDINGS: RIGHT KIDNEY: Normal size, 13.8 cm. Normal echogenicity. No solid or suspicious masses. No hydronephrosis. No calcifications. LEFT KIDNEY: Normal size, 13.8 cmc. Normal echogenicity. No solid or suspicious masses. No hydroneph rosis. No calcifications. BLADDER: No masses. OTHER FINDINGS: No other significant finding. IMPRESSION: NORMAL RENAL AND BLADDER ULTRASOUND. TECHNICAL DOCUMENTATION: JOB ID: [id number] 2010 [employer]- All Rights Reserved Reading location - IP/workstation name: [email or web address]
[2019-10-20] MEDS: DIAZEPAM 2 MG TABLET PO PRN (20:39)
--- NOTE | 2019-10-20 21:15 | PDOC CONSULTATION ---
Consultation Consult Date: 10/20/19 Provider Consulted: LUIS A ERNST Consult reason:: TONYA History of Present Illness Admission Date/PCP: 10/11/19 14:05 History of Present Illness: JOVANNI RENTERIA is a 49 year old female with history of hypertension, diabetes mellitus type 2 and heavy alcohol use admitted on October 11, 2023 right foot osteomyelitis. She presented with 1 week history of progressively worsening right foot pain associated with purulent and bloody drainage. Imaging studies is consistent with acute osteomyelitis. Surgery has evaluated the patient and recommended amputation which the patient agreed initially but has refused afterwards. Infectious disease recommendation has also been amputation but since the patient has been refusing to recommend continued antibiotics. Patient was started on IV vancomycin and Zosyn upon admission. Her vancomycin trough level went up to 43.4 on October 13 and peaked at 48.3 on October 15. Vancomycin was then discontinued. She continues to be on IV Zosyn. Patient came in with a normal kidney function with a BUN of 2 and creatinine of 0.56. On October 15 her BUNs increased to 15 with creatinine of 3.33, and October 17 she had a BUN of 19 and creatinine of 4.54, yesterday she had a BUN of 20 and creatinine of 3.79 and today she had a BUN of 20 and creatinine of 4.11. Her GFR now is about 12. Her blood pressure has been steady at around 90-110/40-50. Her urine output is not being quantified. Patient denies any previous history of kidney disease. She denies any problem with urination including dysuria, hematuria, frequency nor urgency in urination. Her right leg has been swelling in relation to her osteomyelitis. Doppler was negative for any DVT. She states that she has some loose stools presumably due to antibiotics. She otherwise denies any nausea, vomiting, cough, fever, chest pains no shortness of breath. When I saw her today she seems to be very sleepy although arousable and answers questions in between dosing to sleep. He has been getting pain medications and benzodiazepines. Past Medical History Cardiac Medical History: Reports: Hypertension-primary Pulmonary Medical History: Reports: Asthma, Bronchitis, Chronic Obstructive Pulmonary Disease (COPD) Endocrine Medical History: Reports: Diabetes Mellitus Type 2 Psychiatric Medical History: Reports: Alcohol Dependency, Depression Past Surgical History Past Surgical History: Reports: Section, Cholecystectomy, Gastric Bypass Surgery, Tonsillectomy Social History Information Source: Patient, [facility] Records Lives with: Spouse/Significant other Smoking Status: Current Every Day Smoker Cigarettes Packs Per Day: 1 Electronic Cigarette use?: No Cigars Per Day: 0 Pipes Per Day: 0 Number of Years Smokin Last Time Smoked: 10/11/2019 Frequency of Alcohol Use: Heavy Hx Recreational Drug Use: No Drugs: None Hx Prescription Drug Abuse: No - Advance Directive Resuscitation Status: Do Not Resuscitate Family History Family History: Chronic Kidney Disease - Mother, DM - Mother, Hypertension - Father Parental Family History Reviewed: Yes Children Family History Reviewed: Yes Sibling(s) Family History Reviewed.: Yes Medication/Allergy Home Medications: Escitalopram Oxalate [Lexapro] 40 mg PO DAILY 01/10/18 Oxycodone HCl [Oxycodone HCl 10 MG Tablet] 10 mg PO Q4HP PRN MDD 5 08/20/18 Buspirone HCl [Buspar 10 mg Tablet] 7.5 mg PO BID 07/28/19 Ergocalciferol (Vitamin D2) [Drisdol 50,000 unit (1.25MG) Capsule] 50,000 unit PO FR@1000 07/28/19 Furosemide [Lasix 40 mg Tablet] 40 mg PO Q2D 10/11/19 Glipizide [Glucotrol Xl 2.5 mg Tab.er] 2.5 mg PO ACBRKFST 10/11/19 Lurasidone HCl [Latuda] 20 mg PO DAILY 10/11/19 Morphine Sulfate [Ms-Contin Sr 15 mg Tablet] 15 mg PO Q6 10/11/19 Spironolactone [Aldactone 25 mg Tablet] 25 mg PO Q12 10/11/19 Trazodone HCl 150 mg PO QHS 10/11/19 Amoxicillin/Potassium Clav [Augmentin 500-125 Tablet] 1 each PO TID 42 Days #42 tablet 10/18/19 Doxycycline Hyclate 100 mg PO BID 42 Days #28 tablet. 10/18/19 Allergies/Adverse Reactions: fire ant Allergy (Severe, Verified 10/11/19 09:43) Anaphylaxis bee venom protein (honey bee) Allergy (Verified 10/11/19 09:43) nitrofurantoin macrocrystalline [From Macrobid] Allergy (Verified 10/11/19 09:43) Sulfa (Sulfonamide Antibiotics) Allergy (Verified 10/11/19 09:43) sulfamethoxazole [From Bactrim] Allergy (Verified 10/11/19 09:43) trimethoprim [From Bactrim] Allergy (Verified 10/11/19 09:43) Review of Systems All systems: reviewed and no additional remarkable complaints except as stated Review of Systems: Constitutional: ABSENT: chills, fatigue, fever(s), headache(s), weight gain, weight loss Eyes: ABSENT: visual disturbances Ears: ABSENT: hearing changes Cardiovascular: ABSENT: chest pain, dyspnea on exertion, orthropnea, palpitations; admits right leg edema Respiratory: ABSENT: cough, dyspnea, hemoptysis Gastrointestinal: ABSENT: abdominal pain, constipation, hematemesis, hematochezia, nausea, vomiting; admits loose stools Genitourinary: ABSENT: dysuria, hematuria Musculoskeletal: ABSENT: joint swelling; currently with right foot draining ulcer and swelling Integumentary: ABSENT: rash, wounds Neurological: ABSENT: abnormal gait, abnormal speech, confusion, dizziness, focal weakness, numbness, syncope Psychiatric: ABSENT: anxiety, depression Endocrine: ABSENT: cold intolerance, heat intolerance, polydipsia, polyuria Hematologic/Lymphatic: ABSENT: easy bleeding, easy bruising, lymphadenopathy Physical Exam Vital Signs: Temp Pulse Resp BP Pulse Ox 98.0 F 75 16 117/63 95 10/20/19 08:25 10/20/19 08:25 10/20/19 08:25 10/20/19 08:25 10/20/19 08:25 Intake & Output 10/19/19 10/20/19 10/21/19 06:59 06:59 06:59 Intake Total 150 1200 Balance 150 1200 Weight 94.5 kg 89.6 kg Exam: General appearance: No acute distress, cooperative, well-developed, well- nourished, somnolent but arousable Head exam: PRESENT: atraumatic, normocephalic Eye exam: PRESENT: Conjunctiva pale, EOMI, PERRLA. ABSENT: conjunctival injection, scleral icterus Mouth exam: PRESENT: moist, neck supple, tongue midline Neck exam: PRESENT: full ROM. ABSENT: carotid bruit, JVD, lymphadenopathy, thyromegaly Respiratory exam: PRESENT: clear to auscultation bilaterally. ABSENT: rales, rhonchi, stridor, wheezes Cardiovascular exam: PRESENT: RRR, +S1, +S2. ABSENT: systolic murmur Pulses: PRESENT: normal radial pulses, normal dorsalis pedis pulses GI/Abdominal exam: PRESENT: normal bowel sounds, soft. ABSENT: guarding, mass, tenderness Rectal exam: Deferred Extremities exam: PRESENT: full ROM. Significant grade 2 right lower extremity edema with trace left lower extremity edema ABSENT: calf tenderness Musculoskeletal: PRESENT: full ROM. Right foot with ulcer wrapped in bandage ABSENT: deformity Neurological exam: PRESENT: Somnolent, Oriented to person, Oriented to place, Oriented to time, reflexes normal, CN II-XII grossly intact. ABSENT: motor sensory deficit Psychiatric exam: PRESENT: appropriate affect, normal mood. ABSENT: homicidal ideation, suicidal ideation Skin exam: PRESENT: intact, dry, warm. ABSENT: rash Results Laboratory Results: 10/17/19 05:33 10/20/19 04:50 10/20/19 04:50 Sodium 134.5 L Potassium 3.9 Chloride 108 H Carbon Dioxide 17 L Anion Gap 10 BUN 20 Creatinine 4.11 H Est GFR ( Amer) 14 L Glucose 81 Calcium 8.7 Impressions: Venous Doppler Study 10/11/19 13:03 IMPRESSION: NO EVIDENCE DVT OR SVT IN THE RIGHT LEG. Head CT 10/13/19 00:00 IMPRESSION: Focal soft tissue swelling overlying the right frontal bone. No underlying fracture. No acute intracranial event. EVIDENCE OF ACUTE STROKE: NO. Assessment & Plan - Diagnosis (1) TONYA (acute kidney injury) Is this a current diagnosis for this admission?: Yes Plan: This most likely secondary to acute tubular necrosis secondary to vancomycin toxicity with or without a combination of possible acute interstitial nephritis secondary to IV Zosyn as well. Kidney function continues to get worse. Agree with discontinuation of vancomycin. Also recommend to also discontinue IV Zosyn and replace with another antibiotic as discussed with Dr. Gordon. We will get kidney ultrasound, urinalysis and record strict intake and output. Patient appears to be slightly hypervolemic at this time. May continue maintenance IV fluids. She does not need any acute renal replacement therapy at this time but if kidney function continues to get worse this is a possibility. I did asked the patient if she would proceed and consent with acute renal replacement therapy in the form of hemodialysis if needed and she said she would. Avoid further nephrotoxic medications. Adjust medications according to kidney function including IV antibiotics and reduced doses of sedating medications to 50% due to TONYA. (2) Metabolic acidosis Is this a current diagnosis for this admission?: Yes Plan: Secondary to worsening TONYA. Will start oral sodium bicarbonate. (3) Osteomyelitis Qualifiers: Osteomyelitis type: other acute Osteomyelitis location: foot Laterality: right Qualified Code(s): M86.171 - Other acute osteomyelitis, right ankle and foot Is this a current diagnosis for this admission?: Yes Plan: Initially treated with IV vancomycin and IV Zosyn from October 10. Vancomycin discontinued on October 15. He still on IV Zosyn at this time. I recommend discontinuation of IV Zosyn and changing to something else. Dr. Gordon will change it to IV cefepime. (4) Diabetic foot ulcer associated with type 2 diabetes mellitus Qualifiers: Diabetic foot ulcer location: midfoot Laterality: right Is this a current diagnosis for this admission?: Yes (5) Hyponatremia Is this a current diagnosis for this admission?: Yes Plan: Secondary to mild hypervolemic state with fluid retention. (6) Alcohol use disorder Is this a current diagnosis for this admission?: Yes (7) Anemia Qualifiers: Anemia type: other cause Other causes of anemia: chronic disease, other Qualified Code(s): D63.8 - Anemia in other chronic diseases classified elsewhere Is this a current diagnosis for this admission?: Yes (8) Diabetes type 2, controlled Qualifiers: Is this a current diagnosis for this admission?: Yes Plan: Controlled. - Notes Notes: Thank you very much for this consultation. Discussed with Dr. Gordon. - Time Time Spent: 50 to 70 Minutes
[2019-10-20] MEDS: TRAZODONE HCL 50 MG TABLET PO SCH (21:23)
[2019-10-20] MEDS: HYDROMORPHONE HCL 2 MG TABLET PO PRN (22:40)
[2019-10-21 05:48] LABS: ANION GAP 8 (5-19); BLOOD UREA NITROGEN 18 mg/dL (7-20); CALCIUM 8.1 mg/dL (8.4-10.2); CARBON DIOXIDE 18 mmol/L (22-30); CHLORIDE 109 mmol/L (98-107); GLUCOSE 86 mg/dL (75-110); POTASSIUM 3.5 mmol/L (3.6-5.0)
[2019-10-21] MEDS: BUSPIRONE HCL 10 MG TABLET PO SCH ×3 (06:01→21:49)
[2019-10-21] MEDS: INSULIN LISPRO 100 UNIT/ML 3 ML VIAL SUBCUT SCH ×4 (10:06→21:58)
[2019-10-21] MEDS: CEFEPIME HCL 0.5 GM in NORMAL SALINE 25 ML IV SCH (11:20)
[2019-10-21] MEDS: ESCITALOPRAM OXALATE 10 MG TABLET PO SCH (11:21)
[2019-10-21] MEDS: DOCUSATE SODIUM 100 MG CAPSULE PO SCH (11:21)
[2019-10-21] MEDS: ERGOCALCIFEROL (VITAMIN D2) 50000 UNIT (1.25 MG) CAPSULE PO SCH (11:21)
[2019-10-21] MEDS: NORMAL SALINE 1000 ML 1,000 ML IV PRN (11:22)
[2019-10-21] MEDS: HYDROMORPHONE HCL 2 MG TABLET PO PRN ×2 (11:32→21:50)
[2019-10-21] MEDS ORDERED: POTASSIUM CHLORIDE 10 MEQ TABLET.ER PO ONE (12:00)
[2019-10-21] MEDS: DIAZEPAM 2 MG TABLET PO PRN ×2 (12:27→21:49)
--- NOTE | 2019-10-21 17:16 | PDOC PROGRESS REPORT ---
Subjective Progress Note for:: 10/21/19 Subjective:: 10/12/2019 Patient has mildly low potassium which we will replete and her lactic acid is notably lower today. She seems to be improved although she still has some trem ulousness which she states is helped greatly by Ativan. She continues on CIWA protocol. Blood cultures are pending. General surgery is evaluating the patient and will determine when she will go to surgery. I discussed the case with them today. Other than tremulousness and some pain in her right foot patient has no new complaints. 10/13/2019 Patient appears to be comfortable and sleeping in bed during encounter. She is arousable but quickly goes back to sleep. Wound is perhaps healing slightly but infection not be controlled without definitive surgical management. Appreciate general surgery following with us and planning out her surgical course. COVID- 19 testing is still pending and once this is back she will likely be appropriate for the OR if surgery agrees. Continuing IV antibiotics and pain management. Continuing CIWA protocol for alcohol withdrawal which appears to be quite effective. Patient does not express any new complaints other than right foot pain. 10/14/2019 Infectious disease consult placed. COVID-19 testing is negative. Patient had discussion with Dr. Markham today about surgery and she continues to refuse amputation. I spoke with surgery myself today and he believes patient's right foot is not surgically salvageable and she would need a BKA which she is currently refusing. I have consulted ID for help determining choice and duration of IV antibiotics which patient will need for several weeks to treat her osteomyelitis which surgery has confirmed does actually probe to bone. I explained this plan in detail to the patient and told her to let us know if she would like surgery and I will contact the surgeon to schedule this. She has no new complaints today. Plan to stop CIWA protocol tomorrow if she is no longer showing signs of withdrawal as patient is frequently requesting Ativan without acute signs of withdrawal. 10/15/2019-patient is refusing amputation of the right lower leg. She wants to try the IV antibiotics. She expressed a desire to sign the [facility] medical advice today to take care of the issues at home later on she changed her mind decided to stay in the hospital for further management. Presently she is on IV Zosyn and vancomycin. Blood cultures are positive for gram-positive cocci in clusters. Comfortably in the chair communicating well. 10/16/2019- is at bedside he tried to convince the patient to go for surgery. Patient is reluctant and she said she is afraid of left below-knee amputation. She wants to go home for a week and come back for surgery. I explained to her that she may have to sign AMA if she really wants to do that. Patient changed her mind decided to stay in the hospital. Vanco trough is 44 and creatinine jumped from 0.7 to3.3. Vancomycin is on hold at this time. 10/17/2019-patient is comfortably in the bed communicating well. Initially agreed for a left BKA then changed her mind. She wants to wait until tomorrow. T-max is 98.3 at this time. vancomycin trough is 37. Plan is to continue to hold vancomycin at this time. 10/18/2019 Patient persists that she does not want surgery and she wants to go home on oral antibiotics instead. I told her that all the physicians involved in her care have agreed that a course of antibiotics will very likely not be effective clearing her infection and she will need amputation anyway. She is not able to be discharged today due to her creatinine being approximately 4 yesterday and vancomycin was stopped. No labs were ordered for today and these have been ordered at this time. Her has come to the hospital and is speaking with her about agreeing to surgery. Patient states she understands the risks including and more severe amputation requirements later on if her infection is left untreated by surgery. She has no new complaints today. 10/19/2019 Rechecked labs and creatinine is finally starting to come down. I discussed at length with the patient that she cannot be discharged until her creatinine is at or near her baseline. I suspect she has ATN from vancomycin, seems to be improving since vancomycin was discontinued. Patient is still adamant that she does not want surgery. We may need to adjust her antibiotics at discharge based on her renal function but we will wait and see as I expect her to be in the hospital for at least another 2 to 3 days while her creatinine recovers. Restarted patient's home long-acting morphine at her request. Normal saline gentle IV fluids. Hold diuretics. Trend BMP. Patient's only complaints are her chronic pain in her feet. 10/20/2019 Right knee in actually darryn today after it had been going down. I ordered a UA with urine electrolytes and urine protein creatinine ratio and I have consulted nephrology and discussed the case with the oem sales manager today. Patient is a bit sleepy and I am concerned she is abusing her antianxiety and pain medication. G iven her renal failure this is likely accumulating in her bloodstream as well. I have stopped her home dose morphine and replaced it with low-dose oral Dilaudid to be used sparingly. I have also discontinued IV anxiety lytics and added oral Valium also to be used sparingly. I have stopped her Zosyn and replace it with cefepime renally dosed. Patient has no specific complaints today. 10/21/2019 Patient seems to be getting increasingly anxious intermittently states she is in pain but then also notes she is using her pain medication to treat her anxiety. I discussed with her that this is not the purpose of her pain medicine. I increased her buspirone today total daily 30 mg in 3 divided doses. I also increased her dose of PRN Valium. She continues to states she is unsure if she wants surgery or not. Nephrology is following to help with renal failure. Creatinine is lower today at 3.5, yesterday it was 4.1. Medications have been optimized for renal failure. Other than severe anxiety, patient does not have any new complaints. Reason For Visit: OSTEOMYELITIS RIGHT FOOT, DM ULCER Physical Exam Vital Signs: Temp Pulse Resp BP Pulse Ox 98.0 F 66 18 120/65 100 10/21/19 16:19 10/21/19 16:19 10/21/19 16:19 10/21/19 16:19 10/21/19 16:19 Intake & Output 10/20/19 10/21/19 10/22/19 06:59 06:59 06:59 Intake Total 1200 1000 1236 Balance 1200 1000 1236 Weight 89.6 kg 92.4 kg General appearance: PRESENT: no acute distress, well-developed, well-nourished Head exam: PRESENT: atraumatic, normocephalic Eye exam: PRESENT: conjunctiva pink Mouth exam: PRESENT: moist Respiratory exam: PRESENT: clear to auscultation kristina. ABSENT: rales, rhonchi, wheezes Cardiovascular exam: PRESENT: RRR. ABSENT: diastolic murmur, rubs, systolic murmur GI/Abdominal exam: PRESENT: normal bowel sounds, soft. ABSENT: distended, guarding, mass, organolmegaly, rebound, tenderness Extremities exam: PRESENT: other - Right foot osteomyelitis wound clean but slow to heal Neurological exam: PRESENT: alert, awake Psychiatric exam: PRESENT: anxious, normal mood Skin exam: PRESENT: dry, warm Results Laboratory Results: 10/17/19 05:33 10/21/19 04:40 10/21/19 04:40 Sodium 134.5 L Potassium 3.5 L Chloride 109 H Carbon Dioxide 18 L Anion Gap 8 BUN 18 Creatinine 3.51 H Est GFR ( Amer) 17 L Glucose 86 Calcium 8.1 L Impressions: Venous Doppler Study 10/11/19 13:03 IMPRESSION: NO EVIDENCE DVT OR SVT IN THE RIGHT LEG. Head CT 10/13/19 00:00 IMPRESSION: Focal soft tissue swelling overlying the right frontal bone. No underlying fracture. No acute intracranial event. EVIDENCE OF ACUTE STROKE: NO. Renal Ultrasound 10/20/19 00:00 IMPRESSION: NORMAL RENAL AND BLADDER ULTRASOUND. Assessment and Plan - Diagnosis (1) Osteomyelitis Qualifiers: Osteomyelitis type: other acute Osteomyelitis location: foot Laterality: right Qualified Code(s): M86.171 - Other acute osteomyelitis, right ankle and foot Is this a current diagnosis for this admission?: Yes Plan: 10/12/2019 Patient with osteomyelitis of the fourth toe and metatarsal as well as the fifth metatarsal with associated nonhealing ulcer. Patient is still resistant to a below-knee amputation. But she is willing to u ndergo fourth toe amputation along with resection of her fourth and fifth metatarsal. Patient is not septic and we will still await her COVID testing prior to taking her to surgery. Her alcohol withdrawal treatment appears to be progressing well. We will make the patient n.p.o. for possible surgery tomorrow if COVID testing returns. 10/13/2019 Still await COVID testing for patient to be appropriate for OR per general surgery General surgery still following, patient prefers to have foot preserving surgery although surgeon told patient she will likely need a BKA in the future despite conservative surgery now. Patient does not want BKA at this time Antibiotics continue 10/13/2021 ID consult to determine choice and duration of antibiotics as patient is refusing surgery; plan on needing PICC line and home infusions to be set up by case management Patient will let us know if she changes her mind about the amputation, currently still refusing BKA, surgery does not believe her foot can be salvaged with a minor procedure 10/15/2019-patient is receiving IV Zosyn and vancomycin blood cultures are positive for gram-positive cocci in clusters. ID consult was done surgical consult was done the recommendation is right BKA. Patient is refusing to consider right BKA at this time wants to continue IV antibiotic therapy. Patient understood and aware of the significant morbidity and mortality associated with delaying the surgery. 10/16/2019-patient is presently on IV Zosyn, Vanco trough is 44 and vancomycin is on hold. Patient is not willing to go for right BKA at this time. As per the surgical team wound is surgically nonsalvageable. Plan is to continue the present management. Patient's is at bedside he is in agreement with the right BKA and he is trying his best to convince the patient. 10/17/2019-patient is presently on IV Zosyn vancomycin is on hold because of the elevated trough levels. Patient is not giving a definite answer for surgery at this time. In the meantime plan is to continue the IV antibiotic therapy. 10/18/2019 No real improvement in the wound healing Zosyn continued, vancomycin stopped due to TONYA Patient continues to refuse surgery and states she understands the risks of doing so 10/19/2019 Patient still does not want surgery, I have reiterated that the general surgeon would be happy to see her if she changes her mind IV Zosyn continues 10/20/2019 Changed Zosyn to cefepime due to renal failure and this medication is renally dosed Patient still states she does not want surgery 10/21/2019 Antibiotics continued, patient states she is still considering surgery but has not decided (2) TONYA (acute kidney injury) Is this a current diagnosis for this admission?: Yes Plan: 10/16/2019-creatinine today is 3.3 and yesterday's creatinine 0.7. Acute kidney injury most likely due to vancomycin toxicity. Vancomycin trough is 44 at this time. Vancomycin is on hold. Plan is to repeat the labs tomorrow. 10/17/2019-serum creatinine today is 4.1. Continue to trend up. Most likely secondary to vancomycin toxicity. Latest Vanco trough level is 37. 10/18/2019 No labs have been ordered for today, BMP ordered daily now, trend creatinine Vancomycin stopped yesterday 10/19/2019 Labs consistent with ATN, likely due to vancomycin which is been stopped Creatinine finally starting to come down Trend BMP Gentle normal saline IV fluids 10/20/2019 Creatinine worsened above 4, consulted nephrology and discussed the case with them Changed pain and anxiety medications to avoid oversedation in the setting of renal failure Normal saline continues Urine electrolytes UA with reflex culture Urine protein creatinine ratio Consider bladder ultrasound to rule out retention 10/21/2019 Medications optimized for renal failure Nephrology following Urine protein creatinine ratio mildly elevated (3) Diabetic foot ulcer associated with type 2 diabetes mellitus Qualifiers: Diabetic foot ulcer location: midfoot Laterality: right Is this a current diagnosis for this admission?: Yes (4) Chronic narcotic dependence Is this a current diagnosis for this admission?: Yes (5) COPD (chronic obstructive pulmonary disease) Is this a current diagnosis for this admission?: Yes (6) JENNIFER (obstructive sleep apnea) Is this a current diagnosis for this admission?: Yes (7) Depression Qualifiers: Is this a current diagnosis for this admission?: Yes (8) Diabetes type 2, controlled Qualifiers: Is this a current diagnosis for this admission?: Yes (9) Alcohol withdrawal Qualifiers: Complication of substance-induced condition: uncomplicated Qualified Code(s): F10.230 - Alcohol dependence with withdrawal, uncomplicated Is this a current diagnosis for this admission?: Yes - Time Time Spent with patient: 25-34 minutes Medications reviewed and adjusted accordingly: Yes Anticipated Discharge Disposition: Home with Home Health Anticipated Discharge Timeframe: within 72 hours - Inpatient Certification Based on my medical assessment, after consideration of the patient's comorbidities, presenting symptoms, or acuity I expect that the services needed warrant INPATIENT care.: Yes I certify that my determination is in accordance with my understanding of Medicare's requirements for reasonable and necessary INPATIENT services [42 CFR 412.3e].: Yes Medical Necessity: Significant Comorbidiites Make Outpatient Treatment Too Risky, Need Close Monitoring Due to Risk of Patient Decompensation, Need for IV Antibiotics, Risk of Complication if Not Cared For in Hospital, Risk of Diagnosis Which Will Require Inpatient Eval/Care/Monitoring
[2019-10-21] MEDS: NYSTATIN TOPICAL POWDER 15 GM TP SCH (18:25)
[2019-10-21] MEDS: TRAZODONE HCL 50 MG TABLET PO SCH (21:50)
--- NOTE | 2019-10-21 22:16 | PDOC PROGRESS REPORT ---
Subjective Progress Note for:: 10/21/19 Subjective:: Plan is at the patient today she is more awake and appears to be better. Her blood pressure is on the low side. Urine output not being quantified unfortunately despite order for strict intake and output. I again discussed this with today. Reason For Visit: OSTEOMYELITIS RIGHT FOOT, DM ULCER Physical Exam Vital Signs: Temp Pulse Resp BP Pulse Ox 98.6 F 73 18 98/54 L 97 10/21/19 07:57 10/21/19 07:57 10/21/19 07:57 10/21/19 07:57 10/21/19 07:57 Intake & Output 10/20/19 10/21/19 10/22/19 06:59 06:59 06:59 Intake Total 1200 1000 Balance 1200 1000 Weight 89.6 kg 92.4 kg Exam: General appearance: PRESENT: no acute distress, cooperative, well-developed, well-nourished Head exam: PRESENT: atraumatic, normocephalic Eye exam: PRESENT: conjunctiva pale, PERRLA. ABSENT: scleral icterus Neck exam: ABSENT: JVD Respiratory exam: PRESENT: Normal breath sounds. ABSENT: crackles, rales, rhonchi, unlabored, wheezes Cardiovascular exam: PRESENT: Regular rate rhythm -+S1, +S2. ABSENT: diastolic murmur, systolic murmur GI/Abdominal exam: PRESENT: normal bowel sounds, soft. ABSENT: guarding, mass, tenderness Extremities exam: Grade 1 lower extremity pitting edema more in the right side compared to the left which seems to be improved today Neurological exam: PRESENT: alert, awake, oriented to person, place and time. Skin exam: PRESENT: dry, warm, Results Laboratory Results: 10/17/19 05:33 10/21/19 04:40 10/20/19 10/21/19 12:26 04:40 Sodium 134.5 L Potassium 3.5 L Chloride 109 H Carbon Dioxide 18 L Anion Gap 8 BUN 18 Creatinine 3.51 H Est GFR ( Amer) 17 L Glucose 86 Calcium 8.1 L Urine Color YELLOW Urine Appearance SLIGHTLY-CLOUDY Urine pH 5.0 Ur Specific [place] 1.008 Urine Protein NEGATIVE Urine Glucose (UA) NEGATIVE Urine Ketones NEGATIVE Urine Blood SMALL H Urine RBC (Auto) 2 Impressions: Venous Doppler Study 10/11/19 13:03 IMPRESSION: NO EVIDENCE DVT OR SVT IN THE RIGHT LEG. Head CT 10/13/19 00:00 IMPRESSION: Focal soft tissue swelling overlying the right frontal bone. No underlying fracture. No acute intracranial event. EVIDENCE OF ACUTE STROKE: NO. Renal Ultrasound 10/20/19 00:00 IMPRESSION: NORMAL RENAL AND BLADDER ULTRASOUND. Assessment & Plan - Diagnosis (1) TONYA (acute kidney injury) Is this a current diagnosis for this admission?: Yes Plan: Likely secondary to combination of vancomycin toxicity causing ATN and possible superimposed AIN due to IV Zosyn. Both antibiotics were discontinued. Kidney function slightly improved today. Per patient she is producing some urine. Continue current management with maintenance IV fluids. (2) Metabolic acidosis Is this a current diagnosis for this admission?: Yes Plan: On sodium bicarbonate. (3) Osteomyelitis Qualifiers: Osteomyelitis type: other acute Osteomyelitis location: foot Laterality: right Qualified Code(s): M86.171 - Other acute osteomyelitis, right ankle and foot Is this a current diagnosis for this admission?: Yes Plan: Previously treated with IV vancomycin from 10/10 until 10/15, IV Zosyn from October 10 to October 19. Currently on IV cefepime. (4) Diabetic foot ulcer associated with type 2 diabetes mellitus Qualifiers: Diabetic foot ulcer location: midfoot Laterality: right Is this a current diagnosis for this admission?: Yes (5) Hyponatremia Is this a current diagnosis for this admission?: Yes Plan: Mild and unchanged. (6) Alcohol use disorder Is this a current diagnosis for this admission?: Yes (7) Anemia Qualifiers: Anemia type: other cause Other causes of anemia: chronic disease, other Qualified Code(s): D63.8 - Anemia in other chronic diseases classified elsewhere Is this a current diagnosis for this admission?: Yes (8) Diabetes type 2, controlled Qualifiers: Is this a current diagnosis for this admission?: Yes - Time Time with patient: 15-25 minutes
[2019-10-22] MEDS: NORMAL SALINE 1000 ML 1,000 ML IV PRN (01:20)
[2019-10-22] MEDS: BUSPIRONE HCL 10 MG TABLET PO SCH ×3 (06:16→15:00)
[2019-10-22] MEDS: DIAZEPAM 2 MG TABLET PO PRN ×2 (06:16→11:49)
[2019-10-22] MEDS: HYDROMORPHONE HCL 2 MG TABLET PO PRN ×2 (06:17→13:02)
[2019-10-22] MEDS: INSULIN LISPRO 100 UNIT/ML 3 ML VIAL SUBCUT SCH ×2 (08:38→12:20)
[2019-10-22] MEDS: ESCITALOPRAM OXALATE 10 MG TABLET PO SCH (11:49)
[2019-10-22 11:50] LABS: ANION GAP 9 (5-19); BLOOD UREA NITROGEN 15 mg/dL (7-20); CALCIUM 8.4 mg/dL (8.4-10.2); CARBON DIOXIDE 13 mmol/L (22-30); CHLORIDE 111 mmol/L (98-107); GLUCOSE 142 mg/dL (75-110); POTASSIUM 3.7 mmol/L (3.6-5.0)
[2019-10-22] MEDS: DOCUSATE SODIUM 100 MG CAPSULE PO SCH (11:50)
[2019-10-22] MEDS: CEFEPIME HCL 0.5 GM in NORMAL SALINE 25 ML IV SCH (11:50)
[2019-10-22] MEDS: NYSTATIN TOPICAL POWDER 15 GM TP SCH (11:51)
--- NOTE | 2019-10-22 15:51 | PDOC PROGRESS REPORT ---
Subjective Progress Note for:: 10/22/19 Subjective:: 10/12/2019 Patient has mildly low potassium which we will replete and her lactic acid is notably lower today. She seems to be improved although she still has some trem ulousness which she states is helped greatly by Ativan. She continues on CIWA protocol. Blood cultures are pending. General surgery is evaluating the patient and will determine when she will go to surgery. I discussed the case with them today. Other than tremulousness and some pain in her right foot patient has no new complaints. 10/13/2019 Patient appears to be comfortable and sleeping in bed during encounter. She is arousable but quickly goes back to sleep. Wound is perhaps healing slightly but infection not be controlled without definitive surgical management. Appreciate general surgery following with us and planning out her surgical course. COVID- 19 testing is still pending and once this is back she will likely be appropriate for the OR if surgery agrees. Continuing IV antibiotics and pain management. Continuing CIWA protocol for alcohol withdrawal which appears to be quite effective. Patient does not express any new complaints other than right foot pain. 10/14/2019 Infectious disease consult placed. COVID-19 testing is negative. Patient had discussion with Dr. Markham today about surgery and she continues to refuse amputation. I spoke with surgery myself today and he believes patient's right foot is not surgically salvageable and she would need a BKA which she is currently refusing. I have consulted ID for help determining choice and duration of IV antibiotics which patient will need for several weeks to treat her osteomyelitis which surgery has confirmed does actually probe to bone. I explained this plan in detail to the patient and told her to let us know if she would like surgery and I will contact the surgeon to schedule this. She has no new complaints today. Plan to stop CIWA protocol tomorrow if she is no longer showing signs of withdrawal as patient is frequently requesting Ativan without acute signs of withdrawal. 10/15/2019-patient is refusing amputation of the right lower leg. She wants to try the IV antibiotics. She expressed a desire to sign the [facility] medical advice today to take care of the issues at home later on she changed her mind decided to stay in the hospital for further management. Presently she is on IV Zosyn and vancomycin. Blood cultures are positive for gram-positive cocci in clusters. Comfortably in the chair communicating well. 10/16/2019- is at bedside he tried to convince the patient to go for surgery. Patient is reluctant and she said she is afraid of left below-knee amputation. She wants to go home for a week and come back for surgery. I explained to her that she may have to sign AMA if she really wants to do that. Patient changed her mind decided to stay in the hospital. Vanco trough is 44 and creatinine jumped from 0.7 to3.3. Vancomycin is on hold at this time. 10/17/2019-patient is comfortably in the bed communicating well. Initially agreed for a left BKA then changed her mind. She wants to wait until tomorrow. T-max is 98.3 at this time. vancomycin trough is 37. Plan is to continue to hold vancomycin at this time. 10/18/2019 Patient persists that she does not want surgery and she wants to go home on oral antibiotics instead. I told her that all the physicians involved in her care have agreed that a course of antibiotics will very likely not be effective clearing her infection and she will need amputation anyway. She is not able to be discharged today due to her creatinine being approximately 4 yesterday and vancomycin was stopped. No labs were ordered for today and these have been ordered at this time. Her has come to the hospital and is speaking with her about agreeing to surgery. Patient states she understands the risks including and more severe amputation requirements later on if her infection is left untreated by surgery. She has no new complaints today. 10/19/2019 Rechecked labs and creatinine is finally starting to come down. I discussed at length with the patient that she cannot be discharged until her creatinine is at or near her baseline. I suspect she has ATN from vancomycin, seems to be improving since vancomycin was discontinued. Patient is still adamant that she does not want surgery. We may need to adjust her antibiotics at discharge based on her renal function but we will wait and see as I expect her to be in the hospital for at least another 2 to 3 days while her creatinine recovers. Restarted patient's home long-acting morphine at her request. Normal saline gentle IV fluids. Hold diuretics. Trend BMP. Patient's only complaints are her chronic pain in her feet. 10/20/2019 Right knee in actually darryn today after it had been going down. I ordered a UA with urine electrolytes and urine protein creatinine ratio and I have consulted nephrology and discussed the case with the magazine editor today. Patient is a bit sleepy and I am concerned she is abusing her antianxiety and pain medication. G iven her renal failure this is likely accumulating in her bloodstream as well. I have stopped her home dose morphine and replaced it with low-dose oral Dilaudid to be used sparingly. I have also discontinued IV anxiety lytics and added oral Valium also to be used sparingly. I have stopped her Zosyn and replace it with cefepime renally dosed. Patient has no specific complaints today. 10/21/2019 Patient seems to be getting increasingly anxious intermittently states she is in pain but then also notes she is using her pain medication to treat her anxiety. I discussed with her that this is not the purpose of her pain medicine. I increased her buspirone today total daily 30 mg in 3 divided doses. I also increased her dose of PRN Valium. She continues to states she is unsure if she wants surgery or not. Nephrology is following to help with renal failure. Creatinine is lower today at 3.5, yesterday it was 4.1. Medications have been optimized for renal failure. Other than severe anxiety, patient does not have any new complaints. 10/22/2019 Vitals are stable. No labs today. Patient seems mildly anxious but states her anxiety is well controlled with the Valium she is currently taking. Despite this, she repeatedly asks for an increase in the dosage and frequency and also wants increased dosage and frequency of her narcotics. We will keep the medications at the same dosage that they are at currently. She has already informed me that she uses her narcotics to treat her anxiety. I explained to her that I doubled her buspirone dose yesterday and increased her Valium dose as well yesterday. After very long discussion about various subjects regarding her care, patient did eventually states she wants surgery and she would like to speak with the surgeon about planning this out. I have put in a new surgery consult. Antibiotics continue. Creatinine coming down. Reason For Visit: OSTEOMYELITIS RIGHT FOOT, DM ULCER Physical Exam Vital Signs: Temp Pulse Resp BP Pulse Ox 98.2 F 67 18 125/63 100 10/22/19 11:40 10/22/19 11:40 10/22/19 11:40 10/22/19 11:40 10/22/19 11:40 Intake & Output 10/21/19 10/22/19 10/23/19 06:59 06:59 06:59 Intake Total 1000 2483 702 Output Total 800 Balance 1000 1683 702 Weight 92.4 kg 96.6 kg 96.6 kg General appearance: PRESENT: no acute distress, cooperative, obese Head exam: PRESENT: atraumatic, normocephalic Eye exam: PRESENT: conjunctiva pink Mouth exam: PRESENT: moist Respiratory exam: PRESENT: clear to auscultation kristina. ABSENT: rales, rhonchi, wheezes Cardiovascular exam: PRESENT: RRR. ABSENT: diastolic murmur, rubs, systolic murmur GI/Abdominal exam: PRESENT: normal bowel sounds, soft. ABSENT: distended, guarding, mass, organolmegaly, rebound, tenderness Neurological exam: PRESENT: alert, awake, oriented to person, oriented to place, oriented to time, oriented to situation Psychiatric exam: PRESENT: appropriate affect, normal mood Skin exam: PRESENT: dry, warm, other - Right diabetic ulcer/wound essentially unchanged from yesterday Results Laboratory Results: 10/17/19 05:33 10/22/19 11:20 10/22/19 10/22/19 09:04 11:20 Sodium Cancelled 132.9 L Potassium Cancelled 3.7 Chloride Cancelled 111 H Carbon Dioxide Cancelled 13 L Anion Gap Cancelled 9 BUN Cancelled 15 Creatinine Cancelled 2.85 H Est GFR ( Amer) Cancelled 21 L Est GFR (Non-Af Amer) Cancelled Glucose Cancelled 142 H Calcium Cancelled 8.4 10/20/19 12:26 Clean Catch Midstream Urine Culture - Final NO GROWTH 2 DAYS Impressions: Venous Doppler Study 10/11/19 13:03 IMPRESSION: NO EVIDENCE DVT OR SVT IN THE RIGHT LEG. Head CT 10/13/19 00:00 IMPRESSION: Focal soft tissue swelling overlying the right frontal bone. No underlying fracture. No acute intracranial event. EVIDENCE OF ACUTE STROKE: NO. Renal Ultrasound 10/20/19 00:00 IMPRESSION: NORMAL RENAL AND BLADDER ULTRASOUND. Assessment and Plan - Diagnosis (1) Osteomyelitis Qualifiers: Osteomyelitis type: other acute Osteomyelitis location: foot Laterality: right Qualified Code(s): M86.171 - Other acute osteomyelitis, right ankle and foot Is this a current diagnosis for this admission?: Yes Plan: 10/12/2019 Patient with osteomyelitis of the fourth toe and metatarsal as well as the fifth metatarsal with associated nonhealing ulcer. Patient is still resistant to a below-knee amputation. But she is willing to undergo fourth toe amputation along with resection of her fourth and fifth metatarsal. Patient is not septic and we will still await her COVID testing prior to taking her to surgery. Her alcohol withdrawal treatment appears to be progressing well. We will make the patient n.p.o. for possible surgery tomorrow if COVID testing returns. 10/13/2019 Still await COVID testing for patient to be appropriate for OR per general surgery General surgery still following, patient prefers to have foot preserving surgery although surgeon told patient she will likely need a BKA in the future despite conservative surgery now. Patient does not want BKA at this time Antibiotics continue 10/13/2021 ID consult to determine choice and duration of antibiotics as patient is refusing surgery; plan on needing PICC line and home infusions to be set up by case management Patient will let us know if she changes her mind about the amputation, currently still refusing BKA, surgery does not believe her foot can be salvaged with a minor procedure 10/15/2019-patient is receiving IV Zosyn and vancomycin blood cultures are positive for gram-positive cocci in clusters. ID consult was done surgical consult was done the recommendation is right BKA. Patient is refusing to consider right BKA at this time wants to continue IV antibiotic therapy. Patient understood and aware of the significant morbidity and mortality associated with delaying the surgery. 10/16/2019-patient is presently on IV Zosyn, Vanco trough is 44 and vancomycin is on hold. Patient is not willing to go for right BKA at this time. As per the surgical team wound is surgically nonsalvageable. Plan is to continue the present management. Patient's is at bedside he is in agreement with the right BKA and he is trying his best to convince the patient. 10/17/2019-patient is presently on IV Zosyn vancomycin is on hold because of the elevated trough levels. Patient is not giving a definite answer for surgery at this time. In the meantime plan is to continue the IV antibiotic therapy. 10/18/2019 No real improvement in the wound healing Zosyn continued, vancomycin stopped due to TONYA Patient continues to refuse surgery and states she understands the risks of doing so 10/19/2019 Patient still does not want surgery, I have reiterated that the general surgeon would be happy to see her if she changes her mind IV Zosyn continues 10/20/2019 Changed Zosyn to cefepime due to renal failure and this medication is renally dosed Patient still states she does not want surgery 10/21/2019 Antibiotics continued, patient states she is still considering surgery but has not decided 10/22/2019 Continued cefepime Patient states she would now like to speak to the surgeon about planning her BKA on the right foot and I placed the surgery consult again (2) TONYA (acute kidney injury) Is this a current diagnosis for this admission?: Yes Plan: 10/16/2019-creatinine today is 3.3 and yesterday's creatinine 0.7. Acute kidney injury most likely due to vancomycin toxicity. Vancomycin trough is 44 at this time. Vancomycin is on hold. Plan is to repeat the labs tomorrow. 10/17/2019-serum creatinine today is 4.1. Continue to trend up. Most likely secondary to vancomycin toxicity. Latest Vanco trough level is 37. 10/18/2019 No labs have been ordered for today, BMP ordered daily now, trend creatinine Vancomycin stopped yesterday 10/19/2019 Labs consistent with ATN, likely due to vancomycin which is been stopped Creatinine finally starting to come down Trend BMP Gentle normal saline IV fluids 10/20/2019 Creatinine worsened above 4, consulted nephrology and discussed the case with them Changed pain and anxiety medications to avoid oversedation in the setting of renal failure Normal saline continues Urine electrolytes UA with reflex culture Urine protein creatinine ratio Consider bladder ultrasound to rule out retention 10/21/2019 Medications optimized for renal failure Nephrology following Urine protein creatinine ratio mildly elevated 10/22/2019 Creatinine coming down Continue trending BMP (3) Diabetic foot ulcer associated with type 2 diabetes mellitus Qualifiers: Diabetic foot ulcer location: midfoot Laterality: right Is this a current diagnosis for this admission?: Yes (4) Chronic narcotic dependence Is this a current diagnosis for this admission?: Yes (5) COPD (chronic obstructive pulmonary disease) Is this a current diagnosis for this admission?: Yes (6) JENNIFER (obstructive sleep apnea) Is this a current diagnosis for this admission?: Yes (7) Depression Qualifiers: Is this a current diagnosis for this admission?: Yes Plan: Also with anxiety Started on buspirone and increased dose during admission As needed Valium (8) Diabetes type 2, controlled Qualifiers: Is this a current diagnosis for this admission?: Yes (9) Alcohol withdrawal Qualifiers: Complication of substance-induced condition: uncomplicated Qualified Code(s): F10.230 - Alcohol dependence with withdrawal, uncomplicated Is this a current diagnosis for this admission?: Yes Plan: Per patient never has had withdrawal in the past CIWA protocol As needed IV Ativan available Counseled on cessation Drinks 24 beers per day 10/12/2019 Still tremulous but states Ativan is helping this 10/13/2019 Alcohol withdrawal seems to be leveling off and resolving Continue CIWA 10/13/2021 Only requesting Ativan though she is not exhibiting any signs of withdrawal, plan to stop CIWA tomorrow if she is no longer showing withdrawal signs at all Resolved - Time Time Spent with patient: 25-34 minutes Medications reviewed and adjusted accordingly: Yes Anticipated Discharge Disposition: Home with Home Health Anticipated Discharge Timeframe: within 72 hours - Inpatient Certification Based on my medical assessment, after consideration of the patient's comorbidities, presenting symptoms, or acuity I expect that the services needed warrant INPATIENT care.: Yes I certify that my determination is in accordance with my understanding of Medicare's requirements for reasonable and necessary INPATIENT services [42 CFR 412.3e].: Yes Medical Necessity: Significant Comorbidiites Make Outpatient Treatment Too Ri melisas, Need Close Monitoring Due to Risk of Patient Decompensation, Need for IV Antibiotics, Need for Surgery, Risk of Complication if Not Cared For in Hospital, Risk of Diagnosis Which Will Require Inpatient Eval/Care/Monitoring
[2019-10-22 17:17] VITALS: BP 124/87
--- NOTE | 2019-10-22 17:59 | Left Against Medical Advice ---
Against Medical Advice Admission Date/Time: 10/11/19 14:05 Primary Care Provider: Date of Patient Emigration: 10/22/19 - Diagnosis: (1) Osteomyelitis Is this a current diagnosis for this admission?: Yes (2) TONYA (acute kidney injury) Is this a current diagnosis for this admission?: Yes (3) Diabetic foot ulcer associated with type 2 diabetes mellitus Is this a current diagnosis for this admission?: Yes (4) Chronic narcotic dependence Is this a current diagnosis for this admission?: Yes (5) COPD (chronic obstructive pulmonary disease) Is this a current diagnosis for this admission?: Yes (6) JENNIFER (obstructive sleep apnea) Is this a current diagnosis for this admission?: Yes (7) Depression Is this a current diagnosis for this admission?: Yes (8) Diabetes type 2, controlled Is this a current diagnosis for this admission?: Yes (9) Alcohol withdrawal Is this a current diagnosis for this admission?: Yes - Summary: Summary: Please see Admission and Progress Notes as well. JOVANNI RENTERIA is a 49 F, who LEFT AGAINST MEDICAL ADVICE. Extensive conversation with patient multiple times over the past several days regarding the risks of leaving AGAINST MEDICAL ADVICE as she had stated she might do so. She is fully alert and oriented and is capable of making decisions for herself. Patient stated she understood the risks and plan to leave AMA anyway. She is aware that she may return to the hospital at any time and we would be glad continue caring for her. The Patient was admitted on 10/11/19 14:05.
--- NOTE | 2019-11-15 12:43 | Progress Note ---
Provider Note Provider Note: Nonhealing right midfoot diabetic foot ulcer Stage: Bone necrosis
== END 2019-10-22 16:50 | disposition left against medical advice (07) | DRG 638 ==
LOC: ER 09:20 → EH 14:05 → 5 10-12 15:25
PROVIDERS: ADMIT Internal Medicine; ATTEND Internal Medicine
PROC: HZ2ZZZZ Detoxification Services for Substance Abuse Treatment (ICD-10-PCS; 2019-10-11)
PROC: 30233N1 Transfusion of Nonautologous Red Blood Cells into Peripheral Vein, Percutaneous Approach (ICD-10-PCS; principal; 2019-10-16)
DX: E11.69 Type 2 diabetes mellitus with other specified complication (principal); F11.20 Opioid dependence, uncomplicated; E87.2 Acidosis; M86.171 Other acute osteomyelitis, right ankle and foot; E87.1 Hypo-osmolality and hyponatremia; F10.231 Alcohol dependence with withdrawal delirium; L97.414 Non-pressure chronic ulcer of right heel and midfoot with necrosis of bone; N17.0 Acute kidney failure with tubular necrosis; E11.621 Type 2 diabetes mellitus with foot ulcer; L97.509 Non-pressure chronic ulcer of other part of unspecified foot with unspecified severity; J44.9 Chronic obstructive pulmonary disease, unspecified; G47.33 Obstructive sleep apnea (adult) (pediatric); F32.9 Major depressive disorder, single episode, unspecified; I10 Essential (primary) hypertension; F17.210 Nicotine dependence, cigarettes, uncomplicated; D63.8 Anemia in other chronic diseases classified elsewhere; E11.622 Type 2 diabetes mellitus with other skin ulcer; Y90.8 Blood alcohol level of 240 mg/100 ml or more; B95.62 Methicillin resistant Staphylococcus aureus infection as the cause of diseases classified elsewhere; B95.2 Enterococcus as the cause of diseases classified elsewhere; T36.8X5A Adverse effect of other systemic antibiotics, initial encounter; Y92.9 Unspecified place or not applicable; F41.9 Anxiety disorder, unspecified; Z53.20 Procedure and treatment not carried out because of patient's decision for unspecified reasons; Z11.59 Encounter for screening for other viral diseases; Z66 Do not resuscitate; Z83.3 Family history of diabetes mellitus; Z82.49 Family history of ischemic heart disease and other diseases of the circulatory system; Z79.899 Other long term (current) drug therapy; Z91.038 Other insect allergy status; Z88.2 Allergy status to sulfonamides; Z88.1 Allergy status to other antibiotic agents; Z91.030 Bee allergy status; Z91.19 Patient's noncompliance with other medical treatment and regimen
CPT/HCPCS: 36415; 36430; 70450; 76770; 80048; 80053; 80202; 80307; 81001; 82570; 82803; 82962; 83036; 83605; 83735; 84100; 84133; 84156; 84300; 85025; 85027; 85610; 86850; 86900; 86901; 86920; 87040; 87077; 87086; 87186; 87635; 93005; 93010; 93971; 96361; 96365; 96375; 96376; 99285; C9803; J0692; J1650; J1815; J2060; J2270; J2543; J3370; J3490; J7030; J7050; J7060; P9016

== ENCOUNTER 2019-11-16 03:30 | Inpatient (IN) | payer MEDICAID ==
--- NOTE | 2019-11-16 06:06 | RADIOLOGY REPORT (SQ) ---
EXAM DESCRIPTION: XR FOOT 3 OR MORE VIEWS COMPLETED DATE/TME: 11/16/2019 05:09 CLINICAL HISTORY: 49 years, Female, pain COMPARISON: 10/10/2019 FINDINGS: Amputation of the mid fifth metatarsal. Diffuse soft tissue edema and wound overlying the lateral foot. Periosteal reaction of the fourth and fifth metatarsals as well as the fourth proximal phalanx. Osteopenia. Persistent destructive osseous lesion involving the base of the right fifth metatarsal. There is also lucency and possible cortical disruption of the cuboid. Degenerative and productive arthritic change of the intertarsal joints. IMPRESSION: 1. Questionable destructive changes involving the cuboid and base of the fifth metatarsal. These findings could be seen with osteomyelitis. MRI of the foot with contrast provided more complete characterization. 2. Diffuse overlying soft tissue edema and ulceration of the lateral right foot. copyright 2010 [employer]- All Rights Reserved
--- NOTE | 2019-11-16 08:27 | ER Document Report ---
ED Extremity Problem, Lower - General Chief Complaint: Foot Pain Stated Complaint: FOOT PAIN/incontinence Time Seen by Provider: 11/16/19 07:57 Information source: Patient TRAVEL OUTSIDE OF THE [place] IN LAST 30 DAYS: No - HPI Patient complains to provider of: Pain, Swelling Location: Foot - bilateral feet Occurred: Other - 2 months Onset/Duration: Gradual Quality of pain: Achy Context: Recent surgery Recent injury: No Associated symptoms: Painful ambulation. denies: Chest pain, Dizzy, Fever, Short of breath Exacerbated by: Walking Relieved by: Nothing Notes: Patient is a 49-year-old female with a past medical history of diabetes who presents with bilateral foot pain for several months. She had a right foot debridement and right fifth toe amputation in July of 2019. States she has been doing wound care at home but has not been to the wound clinic. She has had right sided foot swelling for about a month but it is worsening and she is now unable to ambulate and uses a wheelchair. She called EMS today due to the pain. Denies fevers, chills, nausea, vomiting, abdominal pain. States she has a large ulcer on her right lateral foot and has a small ulcer on her left right toe. - Related Data Allergies/Adverse Reactions: fire ant Allergy (Severe, Verified 10/11/19 09:43) Anaphylaxis bee venom protein (honey bee) Allergy (Verified 10/11/19 09:43) nitrofurantoin macrocrystalline [From Macrobid] Allergy (Verified 10/11/19 09:43) Sulfa (Sulfonamide Antibiotics) Allergy (Verified 10/11/19 09:43) sulfamethoxazole [From Bactrim] Allergy (Verified 10/11/19 09:43) trimethoprim [From Bactrim] Allergy (Verified 10/11/19 09:43) Past Medical History - Social History Smoking Status: Unknown if Ever Smoked Family History: CAD, Malignancy - Past Medical History Cardiac Medical History: Reports: Hx Hypertension Pulmonary Medical History: Reports: Hx Asthma, Hx Bronchitis, Hx COPD Neurological Medical History: Denies: Hx Seizures Endocrine Medical History: Reports: Hx Diabetes Mellitus Type 1, Hx Diabetes Mellitus Type 2 Renal/ Medical History: Denies: Hx Peritoneal Dialysis GI Medical History: Reports: Hx Ulcer Musculoskeletal Medical History: Denies Hx Gout, Denies Hx Muscle Weakness, Denies Hx Musculoskeletal Deformity, Denies Hx Musculoskeletal Trauma Psychiatric Medical History: Reports: Hx Anxiety, Hx Depression Past Surgical History: Reports: Hx Abdominal Surgery - GBP, Hx Section, Hx Cholecystectomy, Hx Gastric Bypass Surgery, Hx Tonsillectomy. Denies: Hx Hysterectomy - Immunizations Immunizations up to date: Yes Hx Diphtheria, Pertussis, Tetanus Vaccination: Yes - 2017 Review of Systems - Review of Systems Constitutional: denies: Chills, Fever EENT: No symptoms reported Cardiovascular: denies: Chest pain, Palpitations Respiratory: No symptoms reported. denies: Short of breath, Wheezing Gastrointestinal: No symptoms reported. denies: Abdominal pain, Vomiting Genitourinary: No symptoms reported. denies: Burning, Dysuria Musculoskeletal: Other - right lateral foot ulcer and left great toe ulcer Skin: Lesions. denies: Change in color Hematologic/Lymphatic: No symptoms reported Neurological/Psychological: No symptoms reported Physical Exam - Vital signs Vitals: Temp Pulse Resp BP Pulse Ox 98.2 F 95 18 113/73 97 11/16/19 03:52 11/16/19 03:52 11/16/19 03:52 11/16/19 03:52 11/16/19 03:52 Interpretation: Normal - General In distress: None - HEENT Head: Atraumatic Eyes: Normal Conjunctiva: Normal Ears: Normal Neck: Normal - Respiratory Respiratory status: No respiratory distress. No: Labored Breath sounds: Normal. No: Decreased air movement, Rhonchi, Wheezing - Cardiovascular Rhythm: Regular Heart sounds: Normal auscultation Murmur: No - Abdominal Inspection: Normal Distension: No distension Tenderness: Nontender. No: Guarding, Rebound - Extremities General upper extremity: Normal inspection General lower extremity: Other - Right foot with large ulcer on lateral foot with warmth and swelling. No crepitus appreciated. Tender to palpation. Previous amputation of 5th toe. Sensation and ROM intact. Left foot with small ulcer to plantar 1st toe. No appreciable probing to bone. - Neurological Cognition: Normal Orientation: AAOx4 - Psychological Associated symptoms: Normal affect, Normal mood Course - Re-evaluation Re-evalutation: 11/16/19 10:47 Patient has suspected osteomyelitis of her right extremity. Also has some subcutaneous air of the left first toe where she has a diabetic ulcer. Patient has an elevated ESR and lactic acid. Antibiotics were ordered. I discussed with the hospitalist who recommended I talk to the surgeon proration clerk because she has refused amputation in the past and this is not a chronic issue for her. Surgery will come assess the patient. 11/16/19 12:04 I reviewed labs. She does have elevated liver function panel but has a history of alcoholism and is denying any abdominal pain or GI symptoms. She has also had a cholecystectomy so I do not believe she needs further imaging in the ED at this time. She also has a hemoglobin below normal but this is actually higher than her usual baseline based on record review. 11/16/19 13:35 Surgery assessed the patient and she is agreeable for amputation. She will be admitted to the hospitalist service for further care. - Vital Signs Vital signs: Temp Pulse Resp BP Pulse Ox 98.7 F 96 16 127/64 H 100 11/16/19 11:29 11/16/19 11:29 11/16/19 11:29 11/16/19 11:29 11/16/19 11:29 - Laboratory Result Diagrams: 11/16/19 08:40 11/16/19 08:40 Laboratory results interpreted by me: 11/16/19 11/16/19 11/16/19 08:40 08:40 08:40 RBC 3.13 L Hgb 10.5 L Hct 30.9 L MCV 99 H MCH 33.6 H RDW 18.8 H ESR 98 H Potassium 3.2 L Chloride 116 H Carbon Dioxide 17 L Glucose 155 H Lactic Acid 2.5 H Direct Bilirubin 0.5 H AST 364 H ALT 83 H Alkaline Phosphatase 335 H Total Protein 8.8 H Urine Protein Urine Blood Ur Leukocyte Esterase 11/16/19 11/16/19 09:26 11:32 RBC Hgb Hct MCV MCH RDW ESR Potassium Chloride Carbon Dioxide Glucose Lactic Acid 2.3 H Direct Bilirubin AST ALT Alkaline Phosphatase Total Protein Urine Protein 30 H Urine Blood SMALL H Ur Leukocyte Esterase TRACE H Discharge - Discharge Clinical Impression: Hypokalemia, Elevated LFTs Osteomyelitis of foot Qualifiers: Osteomyelitis type: other Laterality: right Qualified Code(s): M86.8X7 - Other osteomyelitis, ankle and foot Condition: Stable Disposition: ADMITTED INPATIENT Admitting Provider: Heidi (Hospitalist) Unit Admitted: Medical Floor
[2019-11-16 09:00] LABS: ABSOLUTE BASOPHILS # (AUTO) 0.1 10^3/uL (0.0-0.2); ABSOLUTE EOSINOPHILS # (AUTO) 0.1 10^3/uL (0.0-0.6); ABSOLUTE LYMPHOCYTES (AUTO) 2.7 10^3/uL (0.5-4.7); ABSOLUTE MONOCYTES (AUTO) 0.4 10^3/uL (0.1-1.4); BASOPHILS % (AUTO) 0.7 % (0-2); EOSINOPHILS % (AUTO) 0.9 % (0-6); HEMATOCRIT 30.9 % (36.0-47.0); HEMOGLOBIN 10.5 g/dL (12.0-15.5); LYMPHOCYTES % (AUTO) 29.2 % (13-45); MEAN CORPUSCULAR HEMOGLOBIN 33.6 pg (27.0-33.4); MEAN CORPUSCULAR VOLUME 99 fl (80-97); MONOCYTES % (AUTO) 4.4 % (3-13); PLATELET COUNT 155 10^3/uL (150-450); RED BLOOD COUNT 3.13 10^6/uL (3.72-5.28); RED CELL DISTRIBUTION WIDTH 18.8 % (11.5-14.0); SEGMENTED NEUTROPHILS % (AUTO) 64.8 % (42-78); TOTAL CELLS COUNTED % (AUTO) 100 %; WHITE BLOOD COUNT 9.3 10^3/uL (4.0-10.5)
--- NOTE | 2019-11-16 09:20 | RADIOLOGY REPORT (SQ) ---
EXAM DESCRIPTION: FOOT LEFT COMPLETE IMAGES COMPLETED DATE/TIME: 11/16/2019 8:57 am REASON FOR STUDY: foot ulcer COMPARISON: None. NUMBER OF VIEWS: Three views. TECHNIQUE: AP, lateral and oblique radiographic images acquired of the left foot. LIMITATIONS: None. FINDINGS: MINERALIZATION: Osteopenia. BONES: No fracture dislocation. Diffuse degenerative changes are present. No erosion or periosteal reaction involving the great toe distal phalanx to suggest osteomyelitis. JOINTS: No effusions. SOFT TISSUES: There subcutaneous emphysema involving the plantar surface of the great toe. Skin thic kening is seen lateral to the 5th metatarsophalangeal joint. Phleboliths are seen within the distal lower leg soft tissues. OTHER: No other significant finding. IMPRESSION: Subcutaneous gas is seen within the plantar surface of the great toe noted. No radiogra phic findings of osseous extension. TECHNICAL DOCUMENTATION: JOB ID: [id number] 2010 [employer]- All Rights Reserved Reading location - IP/workstation name: [email or web address]
[2019-11-16 09:26] LABS: ALBUMIN 3.6 g/dL (3.5-5.0); ALKALINE PHOSPHATASE 335 U/L (38-126); ANION GAP 11 (5-19); ASPARTATE AMINO TRANSFERASE 364 U/L (14-36); BILIRUBIN,DIRECT 0.5 mg/dL (0.0-0.4); BLOOD UREA NITROGEN 12 mg/dL (7-20); C-REACTIVE PROTEIN < 5.0 mg/L (<10.0); CALCIUM 8.7 mg/dL (8.4-10.2); CARBON DIOXIDE 17 mmol/L (22-30); CHLORIDE 116 mmol/L (98-107); GLUCOSE 155 mg/dL (75-110); POTASSIUM 3.2 mmol/L (3.6-5.0); TOTAL PROTEIN 8.8 g/dL (6.3-8.2)
[2019-11-16] MEDS ORDERED: NORMAL SALINE 1000 ML 1,000 ML IV ONE (09:29)
[2019-11-16] MEDS ORDERED: PIPERACILLIN/TAZOBACTAM 3.375 GM VIAL IV ONE (09:30)
[2019-11-16] MEDS ORDERED: VANCOMYCIN HCL INJ 1000 MG VIAL IV ONE (09:30)
[2019-11-16 09:41] LABS: ERYTHROCYTE SEDIMENTATION RATE 98 mm/hr (0-20)
[2019-11-16] MEDS ORDERED: POTASSIUM CHLORIDE 20 MEQ PACKET PO ONE (09:49)
[2019-11-16] MEDS ORDERED: OXYCODONE-ACETAMINOPHEN 5-325 MG TABLET PO ONE (10:16)
[2019-11-16 10:19] LABS: APPEARANCE,URINE CLEAR; BILIRUBIN,URINE NEGATIVE (NEGATIVE); COLOR,URINE YELLOW; GLUCOSE, URINE NEGATIVE (NEGATIVE); KETONES,URINE NEGATIVE (NEGATIVE); LEUKOCYTE ESTERASE,URINE TRACE (NEGATIVE); NITRITE,URINE NEGATIVE (NEGATIVE); PROTEIN,URINE 30 mg/dL (NEGATIVE); URINE SPECIFIC GRAVITY 1.011; UROBILINOGEN,URINE NEGATIVE mg/dL (<2.0)
[2019-11-16] MEDS ORDERED: SUCCINYLCHOLINE CHLORIDE INJ 200 MG/10 ML VIAL ONE (10:46)
--- NOTE | 2019-11-16 13:06 | PDOC CONSULTATION ---
Consultation Consult Date: 11/16/19 Provider Consulted: SURGICAL SURGICALIST MD Consult reason:: Severe diabetic foot infection History of Present Illness Admission Date/PCP: 11/16/19 12:48 History of Present Illness: JOVANNI RENTERIA is a 49 year old female seen at the request of the [facility]. This patient is well-known to the surgery service. She has refused below-knee amputation in the past. The patient returns to the emergency room with increased swelling and pain of the right foot. She reports that her edema is worsening, and extending up above the ankle now. She has increasing redness. She rates her pain as 10 out of 10. It is constant. Nothing provides her with relief. She is now ready to undergo below-knee amputation, and has consented to the procedure. Chest pain, shortness of breath, nausea, vomiting, headache, blurry vision. She does report fevers, chills, foot pain, malaise, fatigue. Past Medical History Cardiac Medical History: Reports: Hypertension Pulmonary Medical History: Reports: Asthma, Bronchitis, Chronic Obstructive Pulmonary Disease (COPD) Neurological Medical History: Denies: Seizures Endocrine Medical History: Reports: Diabetes Mellitus Type 1, Diabetes Mellitus Type 2 Musculoskeltal Medical History: Denies: Gout Psychiatric Medical History: Reports: Depression Past Surgical History Past Surgical History: Reports: Section, Cholecystectomy, Gastric Bypass Surgery, Tonsillectomy Denies: Hysterectomy Social History Smoking Status: Unknown if Ever Smoked Frequency of Alcohol Use: Heavy Hx Recreational Drug Use: No Drugs: None Hx Prescription Drug Abuse: No Family History Family History: CAD, Malignancy Parental Family History Reviewed: Yes Children Family History Reviewed: Yes Sibling(s) Family History Reviewed.: Yes Medication/Allergy Home Medications: Escitalopram Oxalate [Lexapro] 40 mg PO DAILY 01/10/18 Oxycodone HCl [Oxycodone HCl 10 MG Tablet] 10 mg PO Q4HP PRN MDD 5 08/20/18 Buspirone HCl [Buspar 10 mg Tablet] 7.5 mg PO BID 07/28/19 Ergocalciferol (Vitamin D2) [Drisdol 50,000 unit (1.25MG) Capsule] 50,000 unit PO FR@1000 07/28/19 Furosemide [Lasix 40 mg Tablet] 40 mg PO Q2D 10/11/19 Glipizide [Glucotrol Xl 2.5 mg Tab.er] 2.5 mg PO ACBRKFST 10/11/19 Lurasidone HCl [Latuda] 20 mg PO DAILY 10/11/19 Morphine Sulfate [Ms-Contin Sr 15 mg Tablet] 15 mg PO Q6 10/11/19 Spironolactone [Aldactone 25 mg Tablet] 25 mg PO Q12 10/11/19 Trazodone HCl 150 mg PO QHS 10/11/19 Amoxicillin/Potassium Clav [Augmentin 500-125 Tablet] 1 each PO TID 42 Days #42 tablet 10/18/19 Doxycycline Hyclate 100 mg PO BID 42 Days #28 tablet. 10/18/19 Allergies/Adverse Reactions: fire ant Allergy (Severe, Verified 10/11/19 09:43) Anaphylaxis bee venom protein (honey bee) Allergy (Verified 10/11/19 09:43) nitrofurantoin macrocrystalline [From Macrobid] Allergy (Verified 10/11/19 09:43) Sulfa (Sulfonamide Antibiotics) Allergy (Verified 10/11/19 09:43) sulfamethoxazole [From Bactrim] Allergy (Verified 10/11/19 09:43) trimethoprim [From Bactrim] Allergy (Verified 10/11/19 09:43) Review of Systems Constitutional: PRESENT: chills, fatigue, fever(s). ABSENT: anorexia Eyes: ABSENT: visual disturbances Ears: ABSENT: hearing changes Nose, Mouth, and Throat: ABSENT: sore throat Cardiovascular: ABSENT: chest pain Respiratory: ABSENT: cough, dyspnea Gastrointestinal: ABSENT: abdominal pain, bloating, nausea, vomiting Genitourinary: ABSENT: dysuria Integumentary: PRESENT: wounds - right foot, other - redness and swelling to right foot that is worsening Neurological: ABSENT: confusion, convulsions, dizziness Psychiatric: ABSENT: anxiety, depression Endocrine: ABSENT: cold intolerance, heat intolerance Hematologic/Lymphatic: ABSENT: easy bleeding, easy bruising Physical Exam Vital Signs: Temp Pulse Resp BP Pulse Ox 98.7 F 96 16 127/64 H 100 11/16/19 11:29 11/16/19 11:29 11/16/19 11:29 11/16/19 11:29 11/16/19 11:29 Intake & Output 11/15/19 11/16/19 11/17/19 06:59 06:59 06:59 Intake Total 1000 Balance 1000 Weight 86.183 kg General appearance: PRESENT: no acute distress Head exam: PRESENT: atraumatic, normocephalic Eye exam: PRESENT: EOMI, PERRLA. ABSENT: scleral icterus Mouth exam: PRESENT: moist, neck supple Neck exam: ABSENT: tenderness, thyromegaly, tracheal deviation, tracheostomy Respiratory exam: PRESENT: unlabored. ABSENT: tachypnea, wheezes Cardiovascular exam: ABSENT: tachycardia GI/Abdominal exam: PRESENT: soft. ABSENT: distended, tenderness Rectal exam: PRESENT: deferred Extremities exam: PRESENT: pedal edema - right foot, extending above the ankle, 1+, other - Right foot wound with granulation tissue present. Large amount of erythema and tenderness present throughout the right foot. Musculoskeletal exam: PRESENT: deformity - Previous amputation of the lateral right foot. Open wound is present in this area. Neurological exam: PRESENT: alert, awake, oriented to person, oriented to place, oriented to time, oriented to situation, CN II-XII grossly intact Psychiatric exam: PRESENT: agitated. ABSENT: anxious, depressed Focused psych exam: ABSENT: delusional Skin exam: PRESENT: erythema - Extremity exam. ABSENT: cyanosis, jaundice Results Laboratory Results: 11/16/19 08:40 11/16/19 08:40 11/16/19 11/16/19 11/16/19 08:40 08:40 08:40 WBC 9.3 RBC 3.13 L Hgb 10.5 L Hct 30.9 L MCV 99 H MCH 33.6 H MCHC 34.0 RDW 18.8 H Plt Count 155 Seg Neutrophils % 64.8 Sodium 144.0 Potassium 3.2 L Chloride 116 H Carbon Dioxide 17 L Anion Gap 11 BUN 12 Creatinine 0.90 Est GFR ( Amer) > 60 Glucose 155 H Lactic Acid 2.5 H Calcium 8.7 Total Bilirubin 1.0 AST 364 H Alkaline Phosphatase 335 H C-Reactive Protein < 5.0 Total Protein 8.8 H Albumin 3.6 Urine Color Urine Appearance Urine pH Ur Specific [place] Urine Protein Urine Glucose (UA) Urine Ketones Urine Blood Urine Nitrite Ur Leukocyte Esterase Urine WBC (Auto) Urine RBC (Auto) 11/16/19 11/16/19 09:26 11:32 WBC RBC Hgb Hct MCV MCH MCHC RDW Plt Count Seg Neutrophils % Sodium Potassium Chloride Carbon Dioxide Anion Gap BUN Creatinine Est GFR ( Amer) Glucose Lactic Acid 2.3 H Calcium Total Bilirubin AST Alkaline Phosphatase C-Reactive Protein Total Protein Albumin Urine Color YELLOW Urine Appearance CLEAR Urine pH 6.0 Ur Specific [place] 1.011 Urine Protein 30 H Urine Glucose (UA) NEGATIVE Urine Ketones NEGATIVE Urine Blood SMALL H Urine Nitrite NEGATIVE Ur Leukocyte Esterase TRACE H Urine WBC (Auto) 2 Urine RBC (Auto) 0 Impressions: Foot X-Ray 11/16/19 08:20 IMPRESSION: Subcutaneous gas is seen within the plantar surface of the great toe noted. No radiographic findings of osseous extension. Assessment & Plan - Diagnosis (1) Diabetic foot infection Is this a current diagnosis for this admission?: Yes - Plan Summary Plan Summary: Is a 49-year-old female with a severe diabetic foot infection on the right. Previously, it was recommended that she undergo below instrumentation for definitive treatment. She refused at that time. Her symptoms have worsened. She has excruciating, uncontrollable, persistent pain. She also has a large amount of swelling and erythema. I believe she has a deep tissue foot infection. I have again recommended below-knee amputation. The patient has now consented to the procedure. Risks/benefits discussed, informed consent obtained, and all questions answered.
[2019-11-16] MEDS: HYDROMORPHONE HCL INJ/PF 2 MG/ML AMPULE IV PRN ×2 (13:09→18:13)
[2019-11-16] MEDS ORDERED: ONDANSETRON HCL INJ/PF 4 MG/2 ML SDV IV ONE (13:13)
[2019-11-16] MEDS ORDERED: ONDANSETRON 4 MG TAB.RAPDIS PO PRN (13:28)
[2019-11-16] MEDS ORDERED: RINGERS SOLUTION,LACTATED 1,000 ML IV PRN (13:28)
[2019-11-16] MEDS ORDERED: IPRATROPIUM/ALBUTEROL 0.5-2.5 MG/3 ML AMPUL NEB PRN (13:28)
[2019-11-16] MEDS ORDERED: ONDANSETRON HCL INJ/PF 4 MG/2 ML SDV IV PRN ×2 (13:28→22:14)
[2019-11-16] MEDS ORDERED: FUROSEMIDE 40 MG TABLET PO SCH (14:15)
--- NOTE | 2019-11-16 14:47 | PDOC H&P ---
History of Present Illness Admission Date/PCP: 11/16/19 12:48 History of Present Illness: JOVANNI RENTERIA is a 49 year old female with past medical history significant for T2DM, HTN, COPD, anxiety/depression, chronic stage IV right diabetic foot ulcer with osteomyelitis who presents with a one-week history of progressive RLE pain/edema/erythema/bloody drainage consistent with multiple prior admissions for right foot osteomyelitis. Patient left AGAINST MEDICAL ADVICE on a recent admission after we treated her for several days with IV antibiotics. Infectious disease has been consulted and they recommended BKA of the right lower extremity as the patient had been given multiple courses of antibiotics without resolution of the osteomyelitis. Patient repeatedly adamantly refused any discussion of amputation of her right foot during the previous admission. On admission now, WBC 9.3, ESR 98, CRP normal, lactic acid elevated. Patient has met with general surgeon and agreed to right BKA incisions are is available and her COVID-19 test is negative. Patient was given empiric vancomycin and Zosyn in ED. We will not start her on vancomycin as she experienced severe TONYA last admission due to this medication. We will instead use daptomycin along with cefepime. Blood cultures sent on admission. Past Medical History Cardiac Medical History: Reports: Hypertension Pulmonary Medical History: Reports: Asthma, Bronchitis, Chronic Obstructive Pulmonary Disease (COPD) Neurological Medical History: Denies: Seizures Endocrine Medical History: Reports: Diabetes Mellitus Type 1, Diabetes Mellitus Type 2 Musculoskeltal Medical History: Denies: Gout Psychiatric Medical History: Reports: Depression, General Anxiety Disorder Past Surgical History Past Surgical History: Reports: Section, Cholecystectomy, Gastric Bypass Surgery, Tonsillectomy Denies: Hysterectomy Social History Smoking Status: Smoker,Current Status Unk Frequency of Alcohol Use: Heavy Hx Recreational Drug Use: No Drugs: None Hx Prescription Drug Abuse: No - Advance Directive Resuscitation Status: Full Code Surrogate healthcare decision maker:: Brother Family History Family History: CAD, Malignancy Parental Family History Reviewed: Yes Children Family History Reviewed: Yes Sibling(s) Family History Reviewed.: Yes Medication/Allergy Home Medications: Escitalopram Oxalate [Lexapro] 40 mg PO DAILY 01/10/18 Oxycodone HCl [Oxycodone HCl 10 MG Tablet] 10 mg PO Q4HP PRN MDD 5 08/20/18 Buspirone HCl [Buspar 10 mg Tablet] 7.5 mg PO BID 07/28/19 Ergocalciferol (Vitamin D2) [Drisdol 50,000 unit (1.25MG) Capsule] 50,000 unit PO FR@1000 07/28/19 Furosemide [Lasix 40 mg Tablet] 40 mg PO Q2D 10/11/19 Glipizide [Glucotrol Xl 2.5 mg Tab.er] 2.5 mg PO ACBRKFST 10/11/19 Lurasidone HCl [Latuda] 20 mg PO DAILY 10/11/19 Morphine Sulfate [Ms-Contin Sr 15 mg Tablet] 15 mg PO Q6 10/11/19 Spironolactone [Aldactone 25 mg Tablet] 25 mg PO Q12 10/11/19 Trazodone HCl 150 mg PO QHS 10/11/19 Amoxicillin/Potassium Clav [Augmentin 500-125 Tablet] 1 each PO TID 42 Days #42 tablet 10/18/19 Doxycycline Hyclate 100 mg PO BID 42 Days #28 tablet. 10/18/19 Allergies/Adverse Reactions: fire ant Allergy (Severe, Verified 10/11/19 09:43) Anaphylaxis bee venom protein (honey bee) Allergy (Verified 10/11/19 09:43) nitrofurantoin macrocrystalline [From Macrobid] Allergy (Verified 10/11/19 09:43) Sulfa (Sulfonamide Antibiotics) Allergy (Verified 10/11/19 09:43) sulfamethoxazole [From Bactrim] Allergy (Verified 10/11/19 09:43) trimethoprim [From Bactrim] Allergy (Verified 10/11/19 09:43) Review of Systems All systems: reviewed and no additional remarkable complaints except as stated - Review of systems per HPI, otherwise negative Physical Exam Vital Signs: Temp Pulse Resp BP Pulse Ox 98.7 F 96 16 127/64 H 100 11/16/19 11:29 11/16/19 11:29 11/16/19 11:29 11/16/19 11:29 11/16/19 11:29 Intake & Output 11/15/19 11/16/19 11/17/19 06:59 06:59 06:59 Intake Total 1000 Balance 1000 Weight 86.183 kg General appearance: PRESENT: no acute distress, well-developed, well-nourished Head exam: PRESENT: atraumatic, normocephalic Eye exam: PRESENT: conjunctiva pink Mouth exam: PRESENT: moist Respiratory exam: PRESENT: clear to auscultation kristina. ABSENT: rales, rhonchi, wheezes Cardiovascular exam: PRESENT: RRR. ABSENT: diastolic murmur, rubs, systolic murmur GI/Abdominal exam: PRESENT: normal bowel sounds, soft. ABSENT: distended, guarding, mass, organolmegaly, rebound, tenderness Extremities exam: PRESENT: pedal edema, +1 edema, other - Right large stage IV foot ulcer closed superficial wound with obvious deeper infection, multiple left foot ulcers in various stages Neurological exam: PRESENT: alert, awake, oriented to person, oriented to place, oriented to time, oriented to situation Psychiatric exam: PRESENT: appropriate affect, normal mood Skin exam: PRESENT: dry, warm Results Laboratory Results: 11/16/19 08:40 11/16/19 08:40 11/16/19 11/16/19 11/16/19 08:40 08:40 08:40 WBC 9.3 RBC 3.13 L Hgb 10.5 L Hct 30.9 L MCV 99 H MCH 33.6 H MCHC 34.0 RDW 18.8 H Plt Count 155 Seg Neutrophils % 64.8 Sodium 144.0 Potassium 3.2 L Chloride 116 H Carbon Dioxide 17 L Anion Gap 11 BUN 12 Creatinine 0.90 Est GFR ( Amer) > 60 Glucose 155 H Lactic Acid 2.5 H Calcium 8.7 Total Bilirubin 1.0 AST 364 H Alkaline Phosphatase 335 H C-Reactive Protein < 5.0 Total Protein 8.8 H Albumin 3.6 Urine Color Urine Appearance Urine pH Ur Specific [place] Urine Protein Urine Glucose (UA) Urine Ketones Urine Blood Urine Nitrite Ur Leukocyte Esterase Urine WBC (Auto) Urine RBC (Auto) 11/16/19 11/16/19 09:26 11:32 WBC RBC Hgb Hct MCV MCH MCHC RDW Plt Count Seg Neutrophils % Sodium Potassium Chloride Carbon Dioxide Anion Gap BUN Creatinine Est GFR ( Amer) Glucose Lactic Acid 2.3 H Calcium Total Bilirubin AST Alkaline Phosphatase C-Reactive Protein Total Protein Albumin Urine Color YELLOW Urine Appearance CLEAR Urine pH 6.0 Ur Specific [place] 1.011 Urine Protein 30 H Urine Glucose (UA) NEGATIVE Urine Ketones NEGATIVE Urine Blood SMALL H Urine Nitrite NEGATIVE Ur Leukocyte Esterase TRACE H Urine WBC (Auto) 2 Urine RBC (Auto) 0 Impressions: Foot X-Ray 11/16/19 08:20 IMPRESSION: Subcutaneous gas is seen within the plantar surface of the great toe noted. No radiographic findings of osseous extension. Assessment and Plan - Diagnosis (1) Osteomyelitis of foot Qualifiers: Osteomyelitis type: other Laterality: right Qualified Code(s): M86.8X7 - Other osteomyelitis, ankle and foot Is this a current diagnosis for this admission?: Yes Plan: Acute on chronic, on previous admission refused surgery and left AMA Admitted with worsening edema/erythema/pain with bloody drainage from right fo ot ulcer Daptomycin and Zosyn given on admission, transition to daptomycin/cefepime as she experienced TONYA last admission on vancomycin General surgery consulted for right BKA and patient now agrees to the surgery COVID pending for surgery Pain management Blood cultures (2) Diabetes mellitus type 2 in nonobese Is this a current diagnosis for this admission?: Yes Plan: Correctional insulin, Accu-Cheks A1c Diabetic diet (3) Hypokalemia Is this a current diagnosis for this admission?: Yes Plan: Replete Trend BMP (4) COPD (chronic obstructive pulmonary disease) Is this a current diagnosis for this admission?: Yes Plan: No exacerbation (5) Cellulitis of right lower extremity Is this a current diagnosis for this admission?: Yes (6) Chronic narcotic dependence Is this a current diagnosis for this admission?: Yes Plan: On chronic long-acting morphine at home, dose reduced on admission (7) Diabetic foot ulcer associated with type 2 diabetes mellitus Qualifiers: Diabetic foot ulcer location: midfoot Laterality: right Is this a current diagnosis for this admission?: Yes (8) JENNIFER (obstructive sleep apnea) Is this a current diagnosis for this admission?: Yes Plan: CPAP nightly available (9) HTN (hypertension) Is this a current diagnosis for this admission?: Yes Plan: Controlled on home medications (10) Diabetic foot infection Is this a current diagnosis for this admission?: Yes - Time Time Spent with patient: 35 or more minutes Medications reviewed and adjusted accordingly: Yes Anticipated Discharge Disposition: Jail Facility Anticipated Discharge Timeframe: within 72 hours - Inpatient Certification Based on my medical assessment, after consideration of the patient's comorbidities, presenting symptoms, or acuity I expect that the services needed warrant INPATIENT care.: Yes I certify that my determination is in accordance with my understanding of Medicare's requirements for reasonable and necessary INPATIENT services [42 CFR 412.3e].: Yes Medical Necessity: Significant Comorbidiites Make Outpatient Treatment Too Risky, Need Close Monitoring Due to Risk of Patient Decompensation, Need for Pain Control, Need for IV Antibiotics, Need for Surgery, Risk of Complication if Not Cared For in Hospital, Risk of Diagnosis Which Will Require Inpatient Eval /Care/Monitoring
--- NOTE | 2019-11-16 14:48 | ADVANCED CARE ---
- Diagnosis (1) Osteomyelitis of foot Diagnosis Current: Yes (2) Diabetes mellitus type 2 in nonobese Diagnosis Current: Yes (3) Hypokalemia Diagnosis Current: Yes (4) COPD (chronic obstructive pulmonary disease) Diagnosis Current: Yes (5) Cellulitis of right lower extremity Diagnosis Current: Yes (6) Chronic narcotic dependence Diagnosis Current: Yes (7) Diabetic foot ulcer associated with type 2 diabetes mellitus Diagnosis Current: Yes (8) JENNIFER (obstructive sleep apnea) Diagnosis Current: Yes (9) HTN (hypertension) Diagnosis Current: Yes (10) Diabetic foot infection Diagnosis Current: Yes Attendance: Patient Resuscitation Status: Full Code Discussion: All aspects of code status discussed with patient/POA including cardioversion, chest compressions, and intubation and the patient/POA indicated they wish to be full code MPOA is designated as: Brother Time Spent: Greater than 16 minutes
[2019-11-16] MEDS: OXYCODONE-ACETAMINOPHEN 5-325 MG TABLET PO PRN ×2 (15:53→20:37)
[2019-11-16 17:08] LABS: URINE AMPHETAMINES SCREEN NEGATIVE; URINE BARBITURATES SCREEN NEGATIVE; URINE BENZODIAZEPINES SCREEN NEGATIVE; URINE COCAINE SCREEN NEGATIVE; URINE MARIJUANA (THC) SCREEN NEGATIVE; URINE METHADONE SCREEN NEGATIVE; URINE PHENCYCLIDINE SCREEN NEGATIVE
[2019-11-16] MEDS ORDERED: BUSPIRONE HCL 10 MG TABLET PO SCH (18:00)
[2019-11-16] MEDS: FUROSEMIDE 40 MG TABLET PO SCH (18:11)
[2019-11-16] MEDS: CEFEPIME HCL 2 GM in DEXTROSE 5%-WATER 50 ML IV SCH (18:14)
[2019-11-16] MEDS ORDERED: FENTANYL CITRATE INJ/PF 100 MCG/2 ML AMPUL ONE (21:32)
[2019-11-16] MEDS ORDERED: HYDROMORPHONE HCL INJ/PF 2 MG/ML AMPULE ONE (21:32)
[2019-11-16] MEDS ORDERED: MIDAZOLAM 2 MG/2 ML INJ ONE (21:33)
[2019-11-16] MEDS ORDERED: ONDANSETRON HCL INJ/PF 4 MG/2 ML SDV ONE (21:33)
[2019-11-16] MEDS ORDERED: PROPOFOL INJ 200 MG/20 ML VIAL IV ONE (21:34)
[2019-11-16] MEDS ORDERED: BUPIVACAINE HCL 0.25 % INJ/PF (2.5 MG/1 ML) 30 ML VIAL ONE (21:38)
[2019-11-16] MEDS ORDERED: TRAZODONE HCL 75 MG PO SCH (22:00)
[2019-11-16] MEDS ORDERED: CEFEPIME 2 GM/D5W RTU 2 GM/50 ML RTUPB IV SCH (22:00)
[2019-11-16] MEDS ORDERED: OXYCODONE-ACETAMINOPHEN 5-325 MG TABLET PO PRN ×2 (22:14)
[2019-11-16] MEDS ORDERED: DIPHENHYDRAMINE HCL 50 MG/ML VIAL IV PRN (22:14)
[2019-11-16] MEDS ORDERED: MEPERIDINE HCL/PF INJ 25 MG/1 ML DISP.SYRIN IV PRN (22:14)
[2019-11-16] MEDS ORDERED: MORPHINE SULFATE 10 MG/ML INJ IV PRN (22:14)
[2019-11-16] MEDS ORDERED: FENTANYL CITRATE INJ/PF 100 MCG/2 ML AMPUL IV PRN ×3 (22:14)
[2019-11-16] MEDS ORDERED: PROMETHAZINE HCL INJ 25 MG/1 ML VIAL IV PRN ×2 (22:14)
[2019-11-17] MEDS: MORPHINE SULFATE 10 MG/ML INJ ONE ×2 (00:06→00:11)
[2019-11-17] MEDS ORDERED: OXYCODONE-ACETAMINOPHEN 5-325 MG TABLET ONE (00:25)
[2019-11-17] MEDS: TRAZODONE HCL 50 MG TABLET PO SCH ×2 (01:00→21:34)
[2019-11-17] MEDS: BUSPIRONE HCL 10 MG TABLET PO SCH ×4 (01:01→21:36)
[2019-11-17] MEDS: MORPHINE SULFATE SR 15 MG TABLET PO SCH ×3 (01:07→21:59)
[2019-11-17] MEDS ORDERED: RINGERS SOLUTION,LACTATED 1,000 ML IV ONE (02:45)
[2019-11-17] MEDS: RINGERS SOLUTION,LACTATED 1,000 ML IV PRN (03:53)
[2019-11-17] MEDS: KETOROLAC TROMETHAMINE INJ/PF 30 MG/1 ML SDV IV SCH ×4 (05:04→21:59)
[2019-11-17] MEDS: CEFEPIME HCL 2 GM in DEXTROSE 5%-WATER 50 ML IV SCH ×2 (05:05→21:52)
--- NOTE | 2019-11-17 06:34 | Operative Report ---
Nonrecallable Operative Report DATE OF SURGERY: 11/17/19 PREOPERATIVE DIAGNOSIS: Severe diabetic foot infection on the right POSTOPERATIVE DIAGNOSIS: Same as above OPERATION: Right below-knee amputation SURGEON: RICCARDO MENDOZA ANESTHESIA: GA TISSUE REMOVED OR ALTERED: Right lower leg and foot COMPLICATIONS: None apparent ESTIMATED BLOOD LOSS: Minimal PROCEDURE: Drains/implants: 15 Sinhala round Bill drain. Procedure in detail: After informed consent was obtained, the patient was brought into the operating room and laid in the supine position. The area of the right lower extremity was prepped and draped in a normal sterile fashion. The leg was marked for amputation. The anterior alessandro was made approximately 4 fingerbreadths inferior to the tibial tuberosity. The posterior flap was made another 5 fingerbreadths distal to the anterior marking. An incision was created with a 10 blade scalpel, to encompass the anterior and posterior flaps. Dissection was carried down to the fascia using electrocautery. The anterior compartment was then divided using electrocautery. The tibia was exposed. The tibia was divided, superior to the flap edge. A bevel was created in the anterior tibia. Next, attention was turned to exposure of the fibula. The fibula was exposed. The fibula was divided using the large bone cutters. This was done approximately 3 cm superior to the tibial division. Once this was completed, the tibia and fibula were rotated anteriorly. The posterior flap was then created using electrocautery. The neurovascular bundle was identified. The vascular structures were ligated with 0 vicryl suture ligations. The tibial nerve was divided sharply, as proximally as possible, under traction. Next, the posterior flap was rotated anteriorly. After the posterior flap was rotated anteriorly, the fascia of the posterior compartment was sutured to the anterior fascia of the leg. This was done using 0 Vicryl suture in [id number] fashion. A 15 Sinhala round Bill drain was inserted into the flap, and pulled out through a separate stab incision. The drain was sutured in place using 2-0 nylon suture. Once this was completed the subcutaneous tissues were closed using 2-0 Vicryl suture in running subcuticular fashion. The overlying skin was closed using kathryn. A dressing was placed, and the procedure was concluded. All sponge, instrument, and needle counts were correct x2. Condition: Stable.
[2019-11-17 06:53] LABS: ANION GAP 8 (5-19); BLOOD UREA NITROGEN 11 mg/dL (7-20); CALCIUM 7.2 mg/dL (8.4-10.2); CARBON DIOXIDE 15 mmol/L (22-30); CHLORIDE 108 mmol/L (98-107); GLUCOSE 168 mg/dL (75-110); PHOSPHORUS 4.1 mg/dL (2.5-4.5); POTASSIUM 3.2 mmol/L (3.6-5.0)
[2019-11-17] MEDS: OXYCODONE-ACETAMINOPHEN 5-325 MG TABLET PO PRN (07:51)
[2019-11-17] MEDS ORDERED: HYDROMORPHONE HCL INJ/PF 2 MG/ML AMPULE IV PRN (08:45)
[2019-11-17 09:55] LABS: ABSOLUTE LYMPHOCYTES (AUTO) 1.4 10^3/uL (0.5-4.7); ABSOLUTE MONOCYTES (AUTO) 0.5 10^3/uL (0.1-1.4); ABSOLUTE NEUT (AUTO) 6.9 10^3/uL (1.7-8.2); BASOPHILS % (AUTO) 0.3 % (0-2); EOSINOPHILS % (AUTO) 0.5 % (0-6); HEMATOCRIT 16.6 % (36.0-47.0); LYMPHOCYTES % (AUTO) 16.1 % (13-45); MEAN CORPUSCULAR HEMOGLOBIN 34.4 pg (27.0-33.4); MEAN CORPUSCULAR HGB CONC 34.9 g/dL (32.0-36.0); MEAN CORPUSCULAR VOLUME 99 fl (80-97); MONOCYTES % (AUTO) 5.7 % (3-13); RED BLOOD COUNT 1.69 10^6/uL (3.72-5.28); RED CELL DISTRIBUTION WIDTH 18.2 % (11.5-14.0); SEGMENTED NEUTROPHILS % (AUTO) 77.4 % (42-78); TOTAL CELLS COUNTED % (AUTO) 100 %; WHITE BLOOD COUNT 8.9 10^3/uL (4.0-10.5)
[2019-11-17] MEDS ORDERED: DAPTOMYCIN INJ 500 MG VIAL IV SCH (10:00)
[2019-11-17] MEDS ORDERED: (PENDING PHARMACY ID) (Escitalopram Oxalate [Lexapro] 40 MG) PO SCH (10:00)
[2019-11-17] MEDS ORDERED: MAGNESIUM SULFATE INJ 8 MEQ/2 ML IV SCH (10:00)
[2019-11-17] MEDS ORDERED: LURASIDONE HCL 40 MG TABLET PO SCH (10:00)
[2019-11-17] MEDS: GLIPIZIDE XL 2.5 MG TAB.ER.24 PO SCH (10:00)
[2019-11-17] MEDS ORDERED: (PENDING PHARMACY ID) (Lurasidone Hcl [Latuda] 20 MG) PO SCH (10:00)
[2019-11-17] MEDS ORDERED: DAPTOMYCIN 800 MG in NORMAL SALINE 50 ML IV SCH ×2 (10:00→18:00)
--- NOTE | 2019-11-17 10:06 | PDOC PROGRESS REPORT ---
Subjective Progress Note for:: 11/17/19 Subjective:: Pains right BKA stump Reason For Visit: ACUTE ON CHRONIC RIGHT FOOT OSTEOMYELITIS Physical Exam Vital Signs: Temp Pulse Resp BP Pulse Ox 98.6 F 111 H 13 116/58 L 95 11/17/19 07:00 11/17/19 08:46 11/17/19 08:46 11/17/19 07:00 11/17/19 08:46 Intake & Output 11/16/19 11/17/19 11/18/19 06:59 06:59 06:59 Intake Total 3500 Output Total 255 Balance 3245 Weight 86.183 kg 82 kg Exam: Right BKA stump dressing intact. Surya-Fallon drain has about 40 cc serosanguineous fluid. Results Laboratory Results: 11/17/19 06:05 11/16/19 11/16/19 11/17/19 09:26 11:32 06:05 WBC Cancelled RBC Cancelled Hgb Cancelled Hct Cancelled MCV Cancelled MCH Cancelled MCHC Cancelled RDW Cancelled Plt Count Cancelled Seg Neutrophils % Cancelled Sodium Potassium Chloride Carbon Dioxide Anion Gap BUN Creatinine Est GFR ( Amer) Glucose Lactic Acid 2.3 H Calcium Phosphorus Magnesium Urine Color YELLOW Urine Appearance CLEAR Urine pH 6.0 Ur Specific [place] 1.011 Urine Protein 30 H Urine Glucose (UA) NEGATIVE Urine Ketones NEGATIVE Urine Blood SMALL H Urine Nitrite NEGATIVE Ur Leukocyte Esterase TRACE H Urine WBC (Auto) 2 Urine RBC (Auto) 0 11/17/19 06:05 WBC RBC Hgb Hct MCV MCH MCHC RDW Plt Count Seg Neutrophils % Sodium 130.7 L Potassium 3.2 L Chloride 108 H Carbon Dioxide 15 L Anion Gap 8 BUN 11 Creatinine 0.91 Est GFR ( Amer) > 60 Glucose 168 H Lactic Acid Calcium 7.2 L Phosphorus 4.1 Magnesium 1.0 L* Urine Color Urine Appearance Urine pH Ur Specific [place] Urine Protein Urine Glucose (UA) Urine Ketones Urine Blood Urine Nitrite Ur Leukocyte Esterase Urine WBC (Auto) Urine RBC (Auto) Impressions: Foot X-Ray 11/16/19 08:20 IMPRESSION: Subcutaneous gas is seen within the plantar surface of the great toe noted. No radiographic findings of osseous extension. Assessment & Plan - Diagnosis (1) Diabetic foot infection Is this a current diagnosis for this admission?: Yes - Time Critical Time spent with patient: 15-24 minutes Anticipated Discharge Disposition: Longterm Facility Anticipated Discharge Timeframe: 1 week - Inpatient Certification Medical Necessity: Need for Pain Control, Need for IV Antibiotics - Plan Summary Plan Summary: 49-year-old female postop day #1 right BKA amputation for diabetic foot infection with elevated lactic acid. Patient complaining of continued pains in the right BKA stump. The stump dressing is dry and intact at this time with cielo e drainage and drained about 40 cc serosanguineous. Plans: We will change the dressing and remove the drain in 48 hours. Continue antibiotics I have increased her Dilaudid from 0.5 to 1 mg every 4 hours as needed for pain.
[2019-11-17 10:31] LABS: PLATELET COUNT 86 10^3/uL (150-450)
[2019-11-17 10:32] LABS: HEMOGLOBIN 5.8 g/dL (12.0-15.5)
[2019-11-17] MEDS: ESCITALOPRAM OXALATE 10 MG TABLET PO SCH (10:38)
[2019-11-17] MEDS ORDERED: NORMAL SALINE 250 ML IV PRN ×2 (11:08)
[2019-11-17] MEDS: ENOXAPARIN SODIUM INJ 40 MG/0.4 ML DISP.SYRIN SUBCUT SCH (11:16)
[2019-11-17] MEDS: POTASSIUM CHLORIDE 20 MEQ PACKET PO SCH ×2 (11:30→21:36)
[2019-11-17] MEDS ORDERED: DEXTROSE 50%-WATER SYRINGE 12.5 GM/25 ML DOSE IV PRN (12:00)
[2019-11-17] MEDS ORDERED: GLUCAGON,HUMAN RECOMB 1 MG INJ IM PRN (12:00)
[2019-11-17] MEDS ORDERED: DEXTROSE 50%-WATER SYRINGE 25 GM/50 ML DOSE IV PRN (12:00)
[2019-11-17] MEDS ORDERED: DEXTROSE 40% GEL 15 GM TUBE X 2 PO PRN (12:00)
[2019-11-17] MEDS ORDERED: DEXTROSE 40% GEL 15 GM TUBE PO PRN (12:00)
[2019-11-17] MEDS: MAGNESIUM SULFATE/D5W 1 GM/100 ML RTUPB IV SCH ×2 (12:46→23:13)
[2019-11-17] MEDS: DOCUSATE SODIUM 100 MG/10 ML UDC PO SCH (15:01)
[2019-11-17] MEDS: HYDROMORPHONE HCL INJ/PF 2 MG/ML AMPULE IV PRN ×2 (15:13→21:45)
[2019-11-17] MEDS: INSULIN LISPRO 100 UNIT/ML 3 ML VIAL SUBCUT SCH ×2 (15:42→23:22)
[2019-11-17] MEDS ORDERED: INSULIN LISPRO 100 UNIT/ML 3 ML VIAL SUBCUT SCH (16:00)
[2019-11-17] MEDS ORDERED: LURASIDONE HCL 40 MG TABLET PO ONE (16:30)
[2019-11-17] MEDS: FUROSEMIDE INJ/PF 20 MG/2 ML SDV IV SCH ×2 (16:56→21:32)
--- NOTE | 2019-11-17 18:32 | PDOC PROGRESS REPORT ---
Subjective Subjective:: Patient admitted for acute on chronic right foot osteomyelitis from a stage IV diabetic foot ulcer. Patient previously left AMA and was refusing surgery, however she was admitted here again agreeable to surgery and underwent right BKA with general surgery consult here. Pathology has been sent and is pending. Her pain is primarily controlled with her home medications and some additional IV narcotics as needed. Hemoglobin has very significant drop down to 5.8 after her surgery. I do not recall seeing any reports of significant surgical blood loss communicated to the nurse her overnight hospitalist. Recheck of hemoglobin yielded the same resolved. Patient was transfused 2 units PRBC. On my exam, I do not see any active bleeding. Other than right stump pain patient has no new complaints. Potassium was low as well as low magnesium and we are repleting both of these today. Reason For Visit: ACUTE ON CHRONIC RIGHT FOOT OSTEOMYELITIS Physical Exam Vital Signs: Temp Pulse Resp BP Pulse Ox 98.6 F 104 H 16 97/49 L 100 11/17/19 18:24 11/17/19 18:24 11/17/19 18:24 11/17/19 18:24 11/17/19 18:24 Intake & Output 11/16/19 11/17/19 11/18/19 06:59 06:59 06:59 Intake Total 3500 900 Output Total 255 Balance 3245 900 Weight 86.183 kg 82 kg Exam: General appearance: PRESENT: no acute distress, well-developed, well-nourished, states her surgery went well but she is very fatigued today Head exam: PRESENT: atraumatic, normocephalic Eye exam: PRESENT: conjunctiva pink Mouth exam: PRESENT: moist Respiratory exam: PRESENT: clear to auscultation kristina. ABSENT: rales, rhonchi, wheezes Cardiovascular exam: PRESENT: RRR. ABSENT: diastolic murmur, rubs, systolic murmur GI/Abdominal exam: PRESENT: normal bowel sounds, soft. ABSENT: distended, guarding, mass, organolmegaly, rebound, tenderness Extremities exam: PRESENT: pedal edema, mild edema, other - Right surgical stump rather tender, healing Neurological exam: PRESENT: alert, awake, oriented to person, oriented to place, oriented to time, oriented to situation Psychiatric exam: PRESENT: appropriate affect, normal mood Skin exam: PRESENT: dry, warm Results Laboratory Results: 11/17/19 09:21 11/17/19 06:05 11/17/19 11/17/19 11/17/19 06:05 06:05 09:21 WBC Cancelled 8.9 RBC Cancelled 1.69 L Hgb Cancelled 5.8 L D Hct Cancelled 16.6 L MCV Cancelled 99 H MCH Cancelled 34.4 H MCHC Cancelled 34.9 RDW Cancelled 18.2 H Plt Count Cancelled 86 L Seg Neutrophils % Cancelled 77.4 Sodium 130.7 L Potassium 3.2 L Chloride 108 H Carbon Dioxide 15 L Anion Gap 8 BUN 11 Creatinine 0.91 Est GFR ( Amer) > 60 Glucose 168 H Calcium 7.2 L Phosphorus 4.1 Magnesium 1.0 L* Blood Type Antibody Screen 11/17/19 11:43 WBC RBC Hgb Hct MCV MCH MCHC RDW Plt Count Seg Neutrophils % Sodium Potassium Chloride Carbon Dioxide Anion Gap BUN Creatinine Est GFR ( Amer) Glucose Calcium Phosphorus Magnesium Blood Type O POSITIVE Antibody Screen NEGATIVE Impressions: Foot X-Ray 11/16/19 08:20 IMPRESSION: Subcutaneous gas is seen within the plantar surface of the great toe noted. No radiographic findings of osseous extension. Assessment and Plan - Diagnosis (1) Osteomyelitis of foot Qualifiers: Osteomyelitis type: other Laterality: right Qualified Code(s): M86.8X7 - Other osteomyelitis, ankle and foot Is this a current diagnosis for this admission?: Yes Plan: Acute on chronic, on previous admission refused surgery and left AMA Admitted with worsening edema/erythema/pain with bloody drainage from right foot ulcer Daptomycin and Zosyn given on admission, transition to daptomycin/cefepime as she experienced TONYA last admission on vancomycin General surgery consulted for right BKA, completed 11/15 COVID pending for surgery Pain management with home narcotics and as needed IV meds here Blood cultures no growth to date Pathology pending (2) Diabetes mellitus type 2 in nonobese Is this a current diagnosis for this admission?: Yes Plan: Correctional insulin, Accu-Cheks A1c unable to be done due to severe anemia postop Diabetic diet Controlled here (3) Hypokalemia Is this a current diagnosis for this admission?: Yes (4) COPD (chronic obstructive pulmonary disease) Is this a current diagnosis for this admission?: Yes (5) Cellulitis of right lower extremity Is this a current diagnosis for this admission?: Yes (6) Chronic narcotic dependence Is this a current diagnosis for this admission?: Yes (7) Diabetic foot ulcer associated with type 2 diabetes mellitus Qualifiers: Diabetic foot ulcer location: midfoot Laterality: right Is this a current diagnosis for this admission?: Yes (8) JENNIFER (obstructive sleep apnea) Is this a current diagnosis for this admission?: Yes (9) HTN (hypertension) Is this a current diagnosis for this admission?: Yes (10) Diabetic foot infection Is this a current diagnosis for this admission?: Yes - Time Time Spent with patient: 25-34 minutes Medications reviewed and adjusted accordingly: Yes Anticipated Discharge Disposition: Detention Facility Anticipated Discharge Timeframe: within 72 hours - Inpatient Certification Based on my medical assessment, after consideration of the patient's comorbidities, presenting symptoms, or acuity I expect that the services needed warrant INPATIENT care.: Yes I certify that my determination is in accordance with my understanding of Medicare's requirements for reasonable and necessary INPATIENT services [42 CFR 412.3e].: Yes Medical Necessity: Significant Comorbidiites Make Outpatient Treatment Too Risky, Need Close Monitoring Due to Risk of Patient Decompensation, Need for IV Antibiotics, Risk of Complication if Not Cared For in Hospital, Risk of Diagnos is Which Will Require Inpatient Eval/Care/Monitoring
[2019-11-17] MEDS: OXYCODONE HCL IR 5 MG TABLET PO PRN ×2 (18:56→23:22)
[2019-11-17] MEDS: ACETAMINOPHEN 325 MG TABLET PO PRN (21:33)
[2019-11-17] MEDS: SPIRONOLACTONE 25 MG TABLET PO SCH (21:35)
[2019-11-17] MEDS ORDERED: MAGNESIUM SULFATE/D5W 1 GM/100 ML RTUPB IV SCH (22:00)
[2019-11-17] MEDS: DAPTOMYCIN 800 MG in NORMAL SALINE 50 ML IV SCH (22:35)
[2019-11-17 23:46] LABS: ABSOLUTE EOSINOPHILS # (AUTO) 0.1 10^3/uL (0.0-0.6); ABSOLUTE LYMPHOCYTES (AUTO) 1.3 10^3/uL (0.5-4.7); ABSOLUTE MONOCYTES (AUTO) 0.5 10^3/uL (0.1-1.4); ABSOLUTE NEUT (AUTO) 8.4 10^3/uL (1.7-8.2); BASOPHILS % (AUTO) 0.4 % (0-2); EOSINOPHILS % (AUTO) 1.1 % (0-6); HEMATOCRIT 24.2 % (36.0-47.0); LYMPHOCYTES % (AUTO) 12.7 % (13-45); MEAN CORPUSCULAR HEMOGLOBIN 33.5 pg (27.0-33.4); MEAN CORPUSCULAR HGB CONC 35.4 g/dL (32.0-36.0); MONOCYTES % (AUTO) 5.1 % (3-13); RED BLOOD COUNT 2.56 10^6/uL (3.72-5.28); RED CELL DISTRIBUTION WIDTH 17.7 % (11.5-14.0); SEGMENTED NEUTROPHILS % (AUTO) 80.7 % (42-78); TOTAL CELLS COUNTED % (AUTO) 100 %; WHITE BLOOD COUNT 10.4 10^3/uL (4.0-10.5)
[2019-11-18] MEDS: OXYCODONE-ACETAMINOPHEN 5-325 MG TABLET PO PRN (04:00)
[2019-11-18] MEDS: KETOROLAC TROMETHAMINE INJ/PF 30 MG/1 ML SDV IV SCH ×3 (05:25→21:12)
[2019-11-18] MEDS: BUSPIRONE HCL 10 MG TABLET PO SCH ×3 (05:27→21:13)
[2019-11-18 05:41] LABS: HEMOGLOBIN 8.6 g/dL (12.0-15.5); MEAN CORPUSCULAR VOLUME 95 fl (80-97); PLATELET COUNT 92 10^3/uL (150-450)
[2019-11-18] MEDS: OXYCODONE HCL IR 5 MG TABLET PO PRN ×2 (06:00→15:54)
[2019-11-18] MEDS: RINGERS SOLUTION,LACTATED 1,000 ML IV PRN ×3 (06:04→20:14)
[2019-11-18 07:20] LABS: ABSOLUTE EOSINOPHILS # (AUTO) 0.1 10^3/uL (0.0-0.6); ABSOLUTE LYMPHOCYTES (AUTO) 1.6 10^3/uL (0.5-4.7); ABSOLUTE MONOCYTES (AUTO) 0.5 10^3/uL (0.1-1.4); ABSOLUTE NEUT (AUTO) 7.7 10^3/uL (1.7-8.2); BASOPHILS % (AUTO) 0.3 % (0-2); EOSINOPHILS % (AUTO) 0.9 % (0-6); HEMATOCRIT 21.7 % (36.0-47.0); LYMPHOCYTES % (AUTO) 16.5 % (13-45); MEAN CORPUSCULAR HEMOGLOBIN 33.5 pg (27.0-33.4); MEAN CORPUSCULAR HGB CONC 35.4 g/dL (32.0-36.0); MEAN CORPUSCULAR VOLUME 95 fl (80-97); MONOCYTES % (AUTO) 4.9 % (3-13); RED BLOOD COUNT 2.29 10^6/uL (3.72-5.28); RED CELL DISTRIBUTION WIDTH 18.5 % (11.5-14.0); SEGMENTED NEUTROPHILS % (AUTO) 77.4 % (42-78); TOTAL CELLS COUNTED % (AUTO) 100 %
[2019-11-18 07:27] LABS: ANION GAP 6 (5-19); BLOOD UREA NITROGEN 8 mg/dL (7-20); CALCIUM 7.9 mg/dL (8.4-10.2); CARBON DIOXIDE 18 mmol/L (22-30); CHLORIDE 108 mmol/L (98-107); GLUCOSE 146 mg/dL (75-110); POTASSIUM 3.1 mmol/L (3.6-5.0)
[2019-11-18 07:56] LABS: PLATELET COUNT 85 10^3/uL (150-450)
[2019-11-18 07:57] LABS: HEMOGLOBIN 7.7 g/dL (12.0-15.5)
[2019-11-18] MEDS: HYDROMORPHONE HCL INJ/PF 2 MG/ML AMPULE IV PRN ×3 (08:42→19:04)
[2019-11-18] MEDS: ENOXAPARIN SODIUM INJ 40 MG/0.4 ML DISP.SYRIN SUBCUT SCH (09:53)
[2019-11-18] MEDS ORDERED: POTASSIUM CHLORIDE 20 MEQ PACKET PO SCH (10:00)
[2019-11-18] MEDS: ESCITALOPRAM OXALATE 10 MG TABLET PO SCH (10:08)
[2019-11-18] MEDS: ERGOCALCIFEROL (VITAMIN D2) 50000 UNIT (1.25 MG) CAPSULE PO SCH (10:09)
[2019-11-18] MEDS: FUROSEMIDE 40 MG TABLET PO SCH (10:09)
[2019-11-18] MEDS: SPIRONOLACTONE 25 MG TABLET PO SCH ×2 (10:10→21:13)
[2019-11-18] MEDS: CEFEPIME HCL 2 GM in DEXTROSE 5%-WATER 50 ML IV SCH ×2 (10:10→21:53)
[2019-11-18] MEDS: POTASSIUM CHLORIDE 20 MEQ PACKET PO SCH ×2 (10:10→21:13)
[2019-11-18] MEDS: INSULIN LISPRO 100 UNIT/ML 3 ML VIAL SUBCUT SCH ×4 (10:12→21:54)
[2019-11-18] MEDS: MORPHINE SULFATE SR 15 MG TABLET PO SCH ×2 (10:15→21:11)
[2019-11-18] MEDS: DOCUSATE SODIUM 100 MG/10 ML UDC PO SCH (10:15)
[2019-11-18] MEDS: LURASIDONE HCL 40 MG TABLET PO SCH (10:19)
[2019-11-18] MEDS: GLIPIZIDE XL 2.5 MG TAB.ER.24 PO SCH (10:40)
[2019-11-18] MEDS: FUROSEMIDE INJ/PF 20 MG/2 ML SDV IV SCH ×2 (11:22→21:35)
[2019-11-18] MEDS: POLYETHYLENE GLYCOL 3350 POWDER 17 GM/1 PACKET PO SCH (13:37)
[2019-11-18] MEDS ORDERED: BISACODYL 10 MG SUPP.RECT PR PRN (18:21)
[2019-11-18] MEDS ORDERED: BISACODYL 5 MG TABEC PO PRN (18:21)
[2019-11-18] MEDS ORDERED: SIMETHICONE 80 MG TAB.CHEW PO PRN (18:21)
--- NOTE | 2019-11-18 18:25 | PDOC PROGRESS REPORT ---
Subjective Subjective:: Patient admitted for acute on chronic right foot osteomyelitis from a stage IV diabetic foot ulcer. Patient previously left AMA and was refusing surgery, however she was admitted here again agreeable to surgery and underwent right BKA with general surgery consult here. Pathology has been sent and is pending. Her pain is primarily controlled with her home medications and some additional IV narcotics as needed. Hemoglobin has very significant drop down to 5.8 after her surgery. I do not recall seeing any reports of significant surgical blood loss communicated to the nurse her overnight hospitalist. Recheck of hemoglobin yielded the same resolved. Patient was transfused 2 units PRBC. On my exam, I do not see any active bleeding. Other than right stump pain patient has no new complaints. Potassium was low as well as low magnesium and we are repleting both of these today. 11/18/2019 Patient seems to be doing well today although she is having some nerve pain at her amputation site. I have added gabapentin for this. She is asking for a nicotine patch which she can certainly have. We will need to help her have a bowel movement, give her MiraLAX, Dulcolax oral, Dulcolax rectal, or an enema if all the aforementioned interventions fail. Her hemoglobin is now at a more appropriate 7.7 rather than the overshot lab value of 8.6 seen previously. Blood cultures are negative. She would also like some simethicone for her gas but I feel like this would probably resolve if she had a bowel movement. Other than this, she has no new complaints today. Reason For Visit: ACUTE ON CHRONIC RIGHT FOOT OSTEOMYELITIS Physical Exam Vital Signs: Temp Pulse Resp BP Pulse Ox 99.1 F 104 H 16 109/64 99 11/18/19 15:35 11/18/19 15:35 11/18/19 15:35 11/18/19 15:35 11/18/19 15:35 Intake & Output 11/17/19 11/18/19 11/19/19 06:59 06:59 06:59 Intake Total 3500 3240 1443 Output Total 255 1620 850 Balance 3245 1620 593 Weight 82 kg 81.5 kg Exam: General appearance: PRESENT: no acute distress, well-developed, well-nourished, states she is craving cigarettes and would like a nicotine patch Head exam: PRESENT: atraumatic, normocephalic Eye exam: PRESENT: conjunctiva pink Mouth exam: PRESENT: moist Respiratory exam: PRESENT: clear to auscultation kristina. ABSENT: rales, rhonchi, wheezes Cardiovascular exam: PRESENT: RRR. ABSENT: diastolic murmur, rubs, systolic murmur GI/Abdominal exam: PRESENT: normal bowel sounds, soft. ABSENT: distended, guarding, mass, organolmegaly, rebound, tenderness Extremities exam: PRESENT: pedal edema, mild edema, other - Right surgical stump rather tender, healing Neurological exam: PRESENT: alert, awake, oriented to person, oriented to place, oriented to time, oriented to situation Psychiatric exam: PRESENT: appropriate affect, normal mood Skin exam: PRESENT: dry, warm Results Laboratory Results: 11/18/19 06:15 11/18/19 06:15 11/17/19 11/18/19 11/18/19 23:33 06:15 06:15 WBC 10.4 10.0 RBC 2.56 L 2.29 L Hgb 8.6 L D 7.7 L Hct 24.2 L 21.7 L MCV 95 D 95 MCH 33.5 H 33.5 H MCHC 35.4 35.4 RDW 17.7 H 18.5 H Plt Count 92 L 85 L Seg Neutrophils % 80.7 H 77.4 Sodium 131.6 L Potassium 3.1 L Chloride 108 H Carbon Dioxide 18 L Anion Gap 6 BUN 8 Creatinine 0.74 Est GFR ( Amer) > 60 Glucose 146 H Calcium 7.9 L Magnesium 1.7 Impressions: Foot X-Ray 11/16/19 08:20 IMPRESSION: Subcutaneous gas is seen within the plantar surface of the great toe noted. No radiographic findings of osseous extension. Assessment and Plan - Diagnosis (1) Osteomyelitis of foot Qualifiers: Osteomyelitis type: other Laterality: right Qualified Code(s): M86.8X7 - Other osteomyelitis, ankle and foot Is this a current diagnosis for this admission?: Yes Plan: Acute on chronic, on previous admission refused surgery and left AMA Admitted with worsening edema/erythema/pain with bloody drainage from right foot ulcer Daptomycin and Zosyn given on admission, transition to daptomycin/cefepime as she experienced TONYA last admission on vancomycin General surgery consulted for right BKA, completed 11/15 COVID pending for surgery Pain management with home narcotics and as needed IV meds here Blood cultures no growth to date Pathology pending Added gabapentin for nerve pain at stump Will need follow-up with prosthetics once her stump heals more Bowel regimen (2) Diabetes mellitus type 2 in nonobese Is this a current diagnosis for this admission?: Yes (3) Hypokalemia Is this a current diagnosis for this admission?: Yes (4) COPD (chronic obstructive pulmonary disease) Is this a current diagnosis for this admission?: Yes (5) Cellulitis of right lower extremity Is this a current diagnosis for this admission?: Yes (6) Chronic narcotic dependence Is this a current diagnosis for this admission?: Yes (7) Diabetic foot ulcer associated with type 2 diabetes mellitus Qualifiers: Diabetic foot ulcer location: midfoot Laterality: right Is this a current diagnosis for this admission?: Yes (8) JENNIFER (obstructive sleep apnea) Is this a current diagnosis for this admission?: Yes (9) HTN (hypertension) Is this a current diagnosis for this admission?: Yes (10) Diabetic foot infection Is this a current diagnosis for this admission?: Yes - Time Time Spent with patient: 25-34 minutes Medications reviewed and adjusted accordingly: Yes Anticipated Discharge Disposition: [facility] Care Facility Anticipated Discharge Timeframe: within 72 hours - Inpatient Certification Based on my medical assessment, after consideration of the patient's comorbidities, presenting symptoms, or acuity I expect that the services needed warrant INPATIENT care.: Yes I certify that my determination is in accordance with my understanding of Medicare's requirements for reasonable and necessary INPATIENT services [42 CFR 412.3e].: Yes Medical Necessity: Significant Comorbidiites Make Outpatient Treatment Too Risky, Need Close Monitoring Due to Risk of Patient Decompensation, Need for IV Antibiotics, Risk of Complication if Not Cared For in Hospital, Risk of Diagnosis Which Will Require Inpatient Eval/Care/Monitoring
[2019-11-18] MEDS: GABAPENTIN 300 MG CAPSULE PO SCH (18:52)
[2019-11-18] MEDS: NICOTINE 21 MG/24 HR PATCH.TD24 TD SCH (18:52)
[2019-11-18] MEDS: DAPTOMYCIN 800 MG in NORMAL SALINE 50 ML IV SCH (21:11)
[2019-11-18] MEDS: TRAZODONE HCL 50 MG TABLET PO SCH (21:12)
--- NOTE | 2019-11-18 23:51 | PDOC PROGRESS REPORT ---
Subjective Progress Note for:: 11/18/19 Subjective:: Less pains on the right BKA stump Reason For Visit: ACUTE ON CHRONIC RIGHT FOOT OSTEOMYELITIS Physical Exam Vital Signs: Temp Pulse Resp BP Pulse Ox 99.1 F 104 H 16 109/64 99 11/18/19 15:35 11/18/19 15:35 11/18/19 15:35 11/18/19 15:35 11/18/19 15:35 Intake & Output 11/17/19 11/18/19 11/19/19 06:59 06:59 06:59 Intake Total 3500 3240 2493 Output Total 255 1620 880 Balance 3245 1620 1613 Weight 82 kg 81.5 kg Exam: Right BKA stump dressing is dry and intact. ELADIO drain about 30 cc of serosanguineous fluid in the past 24hours. Results Laboratory Results: 11/18/19 06:15 11/18/19 06:15 11/17/19 11/18/19 11/18/19 23:33 06:15 06:15 WBC 10.4 10.0 RBC 2.56 L 2.29 L Hgb 8.6 L D 7.7 L Hct 24.2 L 21.7 L MCV 95 D 95 MCH 33.5 H 33.5 H MCHC 35.4 35.4 RDW 17.7 H 18.5 H Plt Count 92 L 85 L Seg Neutrophils % 80.7 H 77.4 Sodium 131.6 L Potassium 3.1 L Chloride 108 H Carbon Dioxide 18 L Anion Gap 6 BUN 8 Creatinine 0.74 Est GFR ( Amer) > 60 Glucose 146 H Calcium 7.9 L Magnesium 1.7 Impressions: Foot X-Ray 11/16/19 08:20 IMPRESSION: Subcutaneous gas is seen within the plantar surface of the great toe noted. No radiographic findings of osseous extension. Assessment & Plan - Diagnosis (1) Diabetic foot infection Is this a current diagnosis for this admission?: Yes - Time Anticipated Discharge Disposition: Retirement Facility Anticipated Discharge Timeframe: within 72 hours - Inpatient Certification Medical Necessity: Need for IV Antibiotics - Plan Summary Plan Summary: 49-year-old female 2 days post right below-knee amputation by Dr. Hall with a drain in place. Plan is to remove the dressing and inspect the stump tomorrow and possibly remove the drain. Continue with IV antibiotics
[2019-11-19] MEDS: HYDROMORPHONE HCL INJ/PF 2 MG/ML AMPULE IV PRN ×4 (01:15→20:36)
[2019-11-19] MEDS: BUSPIRONE HCL 10 MG TABLET PO SCH ×3 (05:23→21:14)
[2019-11-19] MEDS: KETOROLAC TROMETHAMINE INJ/PF 30 MG/1 ML SDV IV SCH ×3 (05:23→21:16)
[2019-11-19] MEDS: RINGERS SOLUTION,LACTATED 1,000 ML IV PRN (05:24)
[2019-11-19] MEDS: OXYCODONE HCL IR 5 MG TABLET PO PRN ×2 (05:28→18:54)
[2019-11-19 06:35] LABS: ABSOLUTE EOSINOPHILS # (AUTO) 0.2 10^3/uL (0.0-0.6); ABSOLUTE LYMPHOCYTES (AUTO) 2.1 10^3/uL (0.5-4.7); ABSOLUTE MONOCYTES (AUTO) 0.6 10^3/uL (0.1-1.4); ABSOLUTE NEUT (AUTO) 6.6 10^3/uL (1.7-8.2); BASOPHILS % (AUTO) 0.4 % (0-2); EOSINOPHILS % (AUTO) 1.8 % (0-6); HEMATOCRIT 20.8 % (36.0-47.0); LYMPHOCYTES % (AUTO) 21.7 % (13-45); MEAN CORPUSCULAR HEMOGLOBIN 33.7 pg (27.0-33.4); MEAN CORPUSCULAR HGB CONC 35.3 g/dL (32.0-36.0); MEAN CORPUSCULAR VOLUME 96 fl (80-97); RED BLOOD COUNT 2.17 10^6/uL (3.72-5.28); RED CELL DISTRIBUTION WIDTH 18.1 % (11.5-14.0); SEGMENTED NEUTROPHILS % (AUTO) 70.1 % (42-78); TOTAL CELLS COUNTED % (AUTO) 100 %; WHITE BLOOD COUNT 9.5 10^3/uL (4.0-10.5)
[2019-11-19 07:10] LABS: PLATELET COUNT 98 10^3/uL (150-450)
[2019-11-19 07:12] LABS: HEMOGLOBIN 7.3 g/dL (12.0-15.5)
[2019-11-19] MEDS: INSULIN LISPRO 100 UNIT/ML 3 ML VIAL SUBCUT SCH ×5 (07:48→21:34)
[2019-11-19] MEDS: GLIPIZIDE XL 2.5 MG TAB.ER.24 PO SCH (09:29)
[2019-11-19] MEDS: POTASSIUM CHLORIDE 20 MEQ PACKET PO SCH ×2 (09:49→21:16)
[2019-11-19] MEDS: MORPHINE SULFATE SR 15 MG TABLET PO SCH ×2 (09:49→21:14)
[2019-11-19] MEDS: LURASIDONE HCL 40 MG TABLET PO SCH (09:49)
[2019-11-19] MEDS: ESCITALOPRAM OXALATE 10 MG TABLET PO SCH (09:49)
[2019-11-19] MEDS: GABAPENTIN 300 MG CAPSULE PO SCH ×2 (09:49→21:13)
[2019-11-19] MEDS: DOCUSATE SODIUM 100 MG/10 ML UDC PO SCH (09:50)
[2019-11-19] MEDS: POLYETHYLENE GLYCOL 3350 POWDER 17 GM/1 PACKET PO SCH (09:50)
[2019-11-19] MEDS: NICOTINE 21 MG/24 HR PATCH.TD24 TD SCH (09:50)
[2019-11-19] MEDS: CEFEPIME HCL 2 GM in DEXTROSE 5%-WATER 50 ML IV SCH ×2 (09:50→21:15)
[2019-11-19 09:55] LABS: ANION GAP 5 (5-19); BLOOD UREA NITROGEN 5 mg/dL (7-20); CARBON DIOXIDE 22 mmol/L (22-30); CHLORIDE 106 mmol/L (98-107); GLUCOSE 129 mg/dL (75-110); POTASSIUM 3.2 mmol/L (3.6-5.0)
[2019-11-19] MEDS: FUROSEMIDE INJ/PF 20 MG/2 ML SDV IV SCH (11:27)
[2019-11-19] MEDS: ENOXAPARIN SODIUM INJ 40 MG/0.4 ML DISP.SYRIN SUBCUT SCH (11:27)
--- NOTE | 2019-11-19 15:50 | PDOC PROGRESS REPORT ---
Subjective Progress Note for:: 11/19/19 Subjective:: No complaints Reason For Visit: ACUTE ON CHRONIC RIGHT FOOT OSTEOMYELITIS Physical Exam Vital Signs: Temp Pulse Resp BP Pulse Ox 99.1 F 101 H 18 109/61 100 11/19/19 12:00 11/19/19 12:00 11/19/19 12:00 11/19/19 12:00 11/19/19 12:00 Intake & Output 11/18/19 11/19/19 11/20/19 06:59 06:59 06:59 Intake Total 3240 3543 526 Output Total 1620 1630 200 Balance 1620 1913 326 Weight 81.5 kg 81 kg General appearance: PRESENT: no acute distress Extremities exam: PRESENT: other - Right lower extremity = BKA wound well healing, clean, dry, and intact, no erythema, Bill drain in place with serosanguineous fluid Results Laboratory Results: 11/19/19 05:44 11/19/19 05:44 11/19/19 11/19/19 05:44 05:44 WBC 9.5 RBC 2.17 L Hgb 7.3 L Hct 20.8 L MCV 96 MCH 33.7 H MCHC 35.3 RDW 18.1 H Plt Count 98 L Seg Neutrophils % 70.1 Sodium 132.6 L Potassium 3.2 L Chloride 106 Carbon Dioxide 22 Anion Gap 5 BUN 5 L Creatinine 0.76 Est GFR ( Amer) > 60 Glucose 129 H Calcium 8.0 L Impressions: Foot X-Ray 11/16/19 08:20 IMPRESSION: Subcutaneous gas is seen within the plantar surface of the great toe noted. No radiographic findings of osseous extension. Assessment & Plan - Diagnosis (2) Osteomyelitis of foot Qualifiers: Osteomyelitis type: other Laterality: right Qualified Code(s): M86.8X7 - Other osteomyelitis, ankle and foot - Time Anticipated Discharge Disposition: Home, Self Care Anticipated Discharge Timeframe: within 48 hours - As per PCP - Plan Summary Plan Summary: Assessment: Postoperative day #3 following right BKA for right foot osteomyelitis Patient doing well Bill drain output about 40 mL per 24 hours Exam of the BKA site reveals a well-healing wound without any problems Plan: Replace bandages Keep drain in place for now until output is below 20 L ml 24 hours Patient could be discharged to home in the next 1 to 2 days as per primary care physician Follow-up with surgery office with Dr. Hall 1 week after discharge Routine drain care Bring Bill drain daily output record to office on the day of appointment Sponge bath only Home health nurse to replace bandages every 3 days No antibiotics needed by our viewpoint Avoid narcotics I will sign off. Please call me with questions.
--- NOTE | 2019-11-19 16:01 | PDOC PROGRESS REPORT ---
Subjective Subjective:: Patient admitted for acute on chronic right foot osteomyelitis from a stage IV diabetic foot ulcer. Patient previously left AMA and was refusing surgery, however she was admitted here again agreeable to surgery and underwent right BKA with general surgery consult here. Pathology has been sent and is pending. Her pain is primarily controlled with her home medications and some additional IV narcotics as needed. Hemoglobin has very significant drop down to 5.8 after her surgery. I do not recall seeing any reports of significant surgical blood loss communicated to the nurse her overnight hospitalist. Recheck of hemoglobin yielded the same resolved. Patient was transfused 2 units PRBC. On my exam, I do not see any active bleeding. Other than right stump pain patient has no new complaints. Potassium was low as well as low magnesium and we are repleting both of these today. 11/18/2019 Patient seems to be doing well today although she is having some nerve pain at her amputation site. I have added gabapentin for this. She is asking for a nicotine patch which she can certainly have. We will need to help her have a bowel movement, give her MiraLAX, Dulcolax oral, Dulcolax rectal, or an enema if all the aforementioned interventions fail. Her hemoglobin is now at a more appropriate 7.7 rather than the overshot lab value of 8.6 seen previously. Blood cultures are negative. She would also like some simethicone for her gas but I feel like this would probably resolve if she had a bowel movement. Other than this, she has no new complaints today. 11/19/2019 Patient states her pain is mostly well controlled today she is still having some phantom sensations and pain at her right stump but these are tolerable. She states the gabapentin is very effective in treating her neuropathic pain. Her blood pressure remains lower limit normal and her hemoglobin is slightly lower today at 7.3. She also had low potassium and much higher blood glucose today. I have started her on mealtime lispro and continued her Lantus and sliding scale insulin. General surgery following and has suggested that she go home in the next 1 to 2 days with home health wound care. They do not believe patient will need any further antibiotics as they have cured the patient of her infection with source control. Await pathology to show clear margins. Likely discharge in next 1 to 2 days. Patient has no new complaints. Reason For Visit: ACUTE ON CHRONIC RIGHT FOOT OSTEOMYELITIS Physical Exam Vital Signs: Temp Pulse Resp BP Pulse Ox 99.1 F 101 H 18 109/61 100 11/19/19 12:00 11/19/19 12:00 11/19/19 12:00 11/19/19 12:00 11/19/19 12:00 Intake & Output 11/18/19 11/19/19 11/20/19 06:59 06:59 06:59 Intake Total 3240 3543 526 Output Total 1620 1630 200 Balance 1620 1913 326 Weight 81.5 kg 81 kg Exam: General appearance: PRESENT: no acute distress, well-developed, well-nourished, states she feels pretty well though she is having phantom pains and sensations at her right stump Head exam: PRESENT: atraumatic, normocephalic Eye exam: PRESENT: conjunctiva pink Mouth exam: PRESENT: moist Respiratory exam: PRESENT: clear to auscultation kristina. ABSENT: rales, rhonchi, wheezes Cardiovascular exam: PRESENT: RRR. ABSENT: diastolic murmur, rubs, systolic murmur GI/Abdominal exam: PRESENT: normal bowel sounds, soft. ABSENT: distended, guarding, mass, organolmegaly, rebound, tenderness Extremities exam: PRESENT: pedal edema, mild edema, other - Right surgical stump rather tender, healing, minimal drain output Neurological exam: PRESENT: alert, awake, oriented to person, oriented to place, oriented to time, oriented to situation Psychiatric exam: PRESENT: appropriate affect, normal mood Skin exam: PRESENT: dry, warm Results Laboratory Results: 11/19/19 05:44 11/19/19 05:44 11/19/19 11/19/19 05:44 05:44 WBC 9.5 RBC 2.17 L Hgb 7.3 L Hct 20.8 L MCV 96 MCH 33.7 H MCHC 35.3 RDW 18.1 H Plt Count 98 L Seg Neutrophils % 70.1 Sodium 132.6 L Potassium 3.2 L Chloride 106 Carbon Dioxide 22 Anion Gap 5 BUN 5 L Creatinine 0.76 Est GFR ( Amer) > 60 Glucose 129 H Calcium 8.0 L Impressions: Foot X-Ray 11/16/19 08:20 IMPRESSION: Subcutaneous gas is seen within the plantar surface of the great to e noted. No radiographic findings of osseous extension. Assessment and Plan - Diagnosis (1) Osteomyelitis of foot Qualifiers: Osteomyelitis type: other Laterality: right Qualified Code(s): M86.8X7 - Other osteomyelitis, ankle and foot Is this a current diagnosis for this admission?: Yes Plan: Acute on chronic, on previous admission refused surgery and left AMA Admitted with worsening edema/erythema/pain with bloody drainage from right foot ulcer Daptomycin and Zosyn given on admission, transition to daptomycin/cefepime as she experienced TONYA last admission on vancomycin General surgery consulted for right BKA, completed 11/15, drain will be removed outpatient at follow-up, they do not believe patient needs any further antibiotics at discharge COVID pending for surgery Pain management with home narcotics and as needed IV meds here Blood cultures no growth to date Pathology sent on 11/16 pending Added gabapentin for nerve pain at stump Will need follow-up with prosthetics once her stump heals more Bowel regimen (2) Diabetes mellitus type 2 in nonobese Is this a current diagnosis for this admission?: Yes Plan: Correctional insulin, Accu-Cheks A1c unable to be done due to severe anemia postop Diabetic diet Add mealtime lispro (3) Hypokalemia Is this a current diagnosis for this admission?: Yes (4) COPD (chronic obstructive pulmonary disease) Is this a current diagnosis for this admission?: Yes Plan: No exacerbation Gotta quit smoking (5) Cellulitis of right lower extremity Is this a current diagnosis for this admission?: Yes (6) Chronic narcotic dependence Is this a current diagnosis for this admission?: Yes (7) Diabetic foot ulcer associated with type 2 diabetes mellitus Qualifiers: Diabetic foot ulcer location: midfoot Laterality: right Is this a current diagnosis for this admission?: Yes (8) JENNIFER (obstructive sleep apnea) Is this a current diagnosis for this admission?: Yes (9) HTN (hypertension) Is this a current diagnosis for this admission?: Yes (10) Diabetic foot infection Is this a current diagnosis for this admission?: Yes - Time Time Spent with patient: 25-34 minutes Smoking Cessation Education: 3 to 10 minutes Medications reviewed and adjusted accordingly: Yes Anticipated Discharge Disposition: Home with Home Health Anticipated Discharge Timeframe: within 48 hours - Inpatient Certification Based on my medical assessment, after consideration of the patient's comorbidities, presenting symptoms, or acuity I expect that the services needed warrant INPATIENT care.: Yes I certify that my determination is in accordance with my understanding of Medicare's requirements for reasonable and necessary INPATIENT services [42 CFR 412.3e].: Yes Medical Necessity: Significant Comorbidiites Make Outpatient Treatment Too Risky, Need Close Monitoring Due to Risk of Patient Decompensation, Need for IV Antibiotics, Risk of Complication if Not Cared For in Hospital, Risk of Diagnosis Which Will Require Inpatient Eval/Care/Monitoring
[2019-11-19] MEDS: TRAZODONE HCL 50 MG TABLET PO SCH (21:13)
[2019-11-19] MEDS: DAPTOMYCIN 800 MG in NORMAL SALINE 50 ML IV SCH (21:15)
[2019-11-20] MEDS: HYDROMORPHONE HCL INJ/PF 2 MG/ML AMPULE IV PRN ×5 (00:29→21:30)
[2019-11-20] MEDS: OXYCODONE HCL IR 5 MG TABLET PO PRN ×4 (01:51→19:29)
[2019-11-20] MEDS: KETOROLAC TROMETHAMINE INJ/PF 30 MG/1 ML SDV IV SCH ×3 (05:15→21:30)
[2019-11-20] MEDS: BUSPIRONE HCL 10 MG TABLET PO SCH ×3 (05:15→21:32)
[2019-11-20 06:07] LABS: ANION GAP 6 (5-19); BLOOD UREA NITROGEN 8 mg/dL (7-20); CALCIUM 8.1 mg/dL (8.4-10.2); CARBON DIOXIDE 19 mmol/L (22-30); CHLORIDE 107 mmol/L (98-107); GLUCOSE 199 mg/dL (75-110); POTASSIUM 4.1 mmol/L (3.6-5.0)
[2019-11-20] MEDS: GLIPIZIDE XL 2.5 MG TAB.ER.24 PO SCH (07:32)
[2019-11-20] MEDS: INSULIN LISPRO 100 UNIT/ML 3 ML VIAL SUBCUT SCH ×7 (07:32→22:48)
[2019-11-20 07:35] LABS: ABSOLUTE EOSINOPHILS # (AUTO) 0.2 10^3/uL (0.0-0.6); ABSOLUTE LYMPHOCYTES (AUTO) 1.7 10^3/uL (0.5-4.7); ABSOLUTE MONOCYTES (AUTO) 0.7 10^3/uL (0.1-1.4); ABSOLUTE NEUT (AUTO) 6.4 10^3/uL (1.7-8.2); BASOPHILS % (AUTO) 0.3 % (0-2); EOSINOPHILS % (AUTO) 2.6 % (0-6); HEMATOCRIT 19.7 % (36.0-47.0); LYMPHOCYTES % (AUTO) 18.9 % (13-45); MEAN CORPUSCULAR HEMOGLOBIN 34.4 pg (27.0-33.4); MEAN CORPUSCULAR HGB CONC 34.7 g/dL (32.0-36.0); MEAN CORPUSCULAR VOLUME 99 fl (80-97); PLATELET COUNT 104 10^3/uL (150-450); RED BLOOD COUNT 1.99 10^6/uL (3.72-5.28); RED CELL DISTRIBUTION WIDTH 19.2 % (11.5-14.0); SEGMENTED NEUTROPHILS % (AUTO) 70.2 % (42-78); TOTAL CELLS COUNTED % (AUTO) 100 %; WHITE BLOOD COUNT 9.1 10^3/uL (4.0-10.5)
[2019-11-20 07:38] LABS: HEMOGLOBIN 6.9 g/dL (12.0-15.5)
[2019-11-20] MEDS ORDERED: NORMAL SALINE 250 ML IV PRN ×2 (09:53)
[2019-11-20] MEDS ORDERED: SPIRONOLACTONE 25 MG TABLET PO SCH (10:00)
[2019-11-20] MEDS: MORPHINE SULFATE SR 15 MG TABLET PO SCH ×2 (10:05→23:19)
[2019-11-20] MEDS: CEFEPIME HCL 2 GM in DEXTROSE 5%-WATER 50 ML IV SCH ×2 (10:05→21:33)
[2019-11-20] MEDS: DOCUSATE SODIUM 100 MG/10 ML UDC PO SCH (10:05)
[2019-11-20] MEDS: NICOTINE 21 MG/24 HR PATCH.TD24 TD SCH (10:06)
[2019-11-20] MEDS: POLYETHYLENE GLYCOL 3350 POWDER 17 GM/1 PACKET PO SCH (10:06)
[2019-11-20] MEDS: GABAPENTIN 300 MG CAPSULE PO SCH ×2 (10:06→21:31)
[2019-11-20] MEDS: ESCITALOPRAM OXALATE 10 MG TABLET PO SCH (10:06)
[2019-11-20] MEDS: LURASIDONE HCL 40 MG TABLET PO SCH (10:06)
[2019-11-20] MEDS: POTASSIUM CHLORIDE 20 MEQ PACKET PO SCH ×2 (10:06→21:30)
[2019-11-20] MEDS: ENOXAPARIN SODIUM INJ 40 MG/0.4 ML DISP.SYRIN SUBCUT SCH (10:15)
--- NOTE | 2019-11-20 14:22 | PDOC PROGRESS REPORT ---
Subjective Progress Note for:: 11/20/19 Subjective:: Patient sleeping as she has been receiving 1 unit of blood transfusion Reason For Visit: ACUTE ON CHRONIC RIGHT FOOT OSTEOMYELITIS Physical Exam Vital Signs: Temp Pulse Resp BP Pulse Ox 98.6 F 89 14 96/59 L 98 11/20/19 13:15 11/20/19 13:15 11/20/19 13:15 11/20/19 13:15 11/20/19 13:15 Intake & Output 11/19/19 11/20/19 11/21/19 06:59 06:59 06:59 Intake Total 3543 2826 515 Output Total 1660 1220 200 Balance 1883 1606 315 Weight 81 kg 81.3 kg General appearance: PRESENT: other - Sleepy, arousable Extremities exam: PRESENT: other - Right BKA site = dressings clean, dry, intact; Bill drain filled with a serous fluid Results Laboratory Results: 11/20/19 07:15 11/20/19 04:49 11/20/19 11/20/19 11/20/19 04:49 04:49 07:15 WBC Cancelled 9.1 RBC Cancelled 1.99 L Hgb Cancelled 6.9 L Hct Cancelled 19.7 L MCV Cancelled 99 H MCH Cancelled 34.4 H MCHC Cancelled 34.7 RDW Cancelled 19.2 H Plt Count Cancelled 104 L Seg Neutrophils % Cancelled 70.2 Sodium 132.0 L Potassium 4.1 Chloride 107 Carbon Dioxide 19 L Anion Gap 6 BUN 8 Creatinine 0.89 Est GFR ( Amer) > 60 Glucose 199 H Calcium 8.1 L Blood Type Antibody Screen 11/20/19 10:13 WBC RBC Hgb Hct MCV MCH MCHC RDW Plt Count Seg Neutrophils % Sodium Potassium Chloride Carbon Dioxide Anion Gap BUN Creatinine Est GFR ( Amer) Glucose Calcium Blood Type O POSITIVE Antibody Screen NEGATIVE Impressions: Foot X-Ray 11/16/19 08:20 IMPRESSION: Subcutaneous gas is seen within the plantar surface of the great toe noted. No radiographic findings of osseous extension. Assessment & Plan - Diagnosis (1) Diabetic foot infection Is this a current diagnosis for this admission?: Yes (2) Osteomyelitis of foot Qualifiers: Osteomyelitis type: other Laterality: right Qualified Code(s): M86.8X7 - Other osteomyelitis, ankle and foot Is this a current diagnosis for this admission?: Yes - Time Anticipated Discharge Disposition[facility] Anticipated Discharge Timeframe: As per hospitalist service - Plan Summary Plan Summary: Assessment: Postoperative day #4 following right BKA for right foot osteomyelitis Procedure was tolerated BKA site examined yesterday and found to be viable with wound clean, dry, and intact Bill drain output about 50 mL to the past 24 hours No acute general surgery issues identified Plan: Patient can be discharged from the hospital anytime by our viewpoint The Bill drain needs to be removed once its output is less than 20 mL/day Patient will need physical therapy to apply speed runner on the BKA stump to allow fitting of a prosthesis in 2 to 3 weeks I will sign off. Please have the nurses call us when the patient is discharged and / or if the Bill drain output less than 20 mL/day, so that the drain can be removed before discharge if indicated
[2019-11-20] MEDS: FUROSEMIDE 40 MG TABLET PO SCH (15:22)
[2019-11-20 17:18] LABS: HEMATOCRIT 21.9 % (36.0-47.0); MEAN CORPUSCULAR HEMOGLOBIN 33.7 pg (27.0-33.4); MEAN CORPUSCULAR VOLUME 96 fl (80-97); PLATELET COUNT 103 10^3/uL (150-450); RED BLOOD COUNT 2.28 10^6/uL (3.72-5.28); RED CELL DISTRIBUTION WIDTH 18.6 % (11.5-14.0); WHITE BLOOD COUNT 10.4 10^3/uL (4.0-10.5)
[2019-11-20 17:20] LABS: HEMOGLOBIN 7.7 g/dL (12.0-15.5)
--- NOTE | 2019-11-20 18:32 | PDOC PROGRESS REPORT ---
Subjective Subjective:: Patient admitted for acute on chronic right foot osteomyelitis from a stage IV diabetic foot ulcer. Patient previously left AMA and was refusing surgery, however she was admitted here again agreeable to surgery and underwent right BKA with general surgery consult here. Pathology has been sent and is pending. Her pain is primarily controlled with her home medications and some additional IV narcotics as needed. Hemoglobin has very significant drop down to 5.8 after her surgery. I do not recall seeing any reports of significant surgical blood loss communicated to the nurse her overnight hospitalist. Recheck of hemoglobin yielded the same resolved. Patient was transfused 2 units PRBC. On my exam, I do not see any active bleeding. Other than right stump pain patient has no new complaints. Potassium was low as well as low magnesium and we are repleting both of these today. 11/18/2019 Patient seems to be doing well today although she is having some nerve pain at her amputation site. I have added gabapentin for this. She is asking for a nicotine patch which she can certainly have. We will need to help her have a bowel movement, give her MiraLAX, Dulcolax oral, Dulcolax rectal, or an enema if all the aforementioned interventions fail. Her hemoglobin is now at a more appropriate 7.7 rather than the overshot lab value of 8.6 seen previously. Blood cultures are negative. She would also like some simethicone for her gas but I feel like this would probably resolve if she had a bowel movement. Other than this, she has no new complaints today. 11/19/2019 Patient states her pain is mostly well controlled today she is still having some phantom sensations and pain at her right stump but these are tolerable. She states the gabapentin is very effective in treating her neuropathic pain. Her blood pressure remains lower limit normal and her hemoglobin is slightly lower today at 7.3. She also had low potassium and much higher blood glucose today. I have started her on mealtime lispro and continued her Lantus and sliding scale insulin. General surgery following and has suggested that she go home in the next 1 to 2 days with home health wound care. They do not believe patient will need any further antibiotics as they have cured the patient of her infection with source control. Await pathology to show clear margins. Likely discharge in next 1 to 2 days. Patient has no new complaints. 11/20/2019 Patient states she still having more neuropathic pain and would like her gabapentin increased which I believe is reasonable as it may also help us use less narcotics. Her hemoglobin is dropped again today and I have ordered her another unit of blood. I have decreased her Lasix and Aldactone doses by half to help with her lower blood pressure today. Her blood cultures are negative. She has no new complaints. As she is a Medicaid patient, unfortunately SNF is not available to her and she will need to go home with home health at discharge. Reason For Visit: ACUTE ON CHRONIC RIGHT FOOT OSTEOMYELITIS Physical Exam Vital Signs: Temp Pulse Resp BP Pulse Ox 99.5 F 96 17 112/67 95 11/20/19 15:30 11/20/19 15:30 11/20/19 15:30 11/20/19 15:30 11/20/19 15:30 Intake & Output 11/19/19 11/20/19 11/21/19 06:59 06:59 06:59 Intake Total 3543 2826 865 Output Total 1660 1220 200 Balance 1883 1606 665 Weight 81 kg 81.3 kg Exam: General appearance: PRESENT: no acute distress, well-developed, well-nourished, states she would like more gabapentin for her neuropathic stump pain Head exam: PRESENT: atraumatic, normocephalic Eye exam: PRESENT: conjunctiva pink Mouth exam: PRESENT: moist Respiratory exam: PRESENT: clear to auscultation kristina. ABSENT: rales, rhonchi, wheezes Cardiovascular exam: PRESENT: RRR. ABSENT: diastolic murmur, rubs, systolic murmur GI/Abdominal exam: PRESENT: normal bowel sounds, soft. ABSENT: distended, guarding, mass, organolmegaly, rebound, tenderness Extremities exam: PRESENT: pedal edema, mild edema, other - Right surgical stump rather tender, healing, minimal drain output Neurological exam: PRESENT: alert, awake, oriented to person, oriented to place, oriented to time, oriented to situation Psychiatric exam: PRESENT: appropriate affect, normal mood Skin exam: PRESENT: dry, warm Results Laboratory Results: 11/20/19 17:05 11/20/19 04:49 11/20/19 11/20/19 11/20/19 04:49 04:49 07:15 WBC Cancelled 9.1 RBC Cancelled 1.99 L Hgb Cancelled 6.9 L Hct Cancelled 19.7 L MCV Cancelled 99 H MCH Cancelled 34.4 H MCHC Cancelled 34.7 RDW Cancelled 19.2 H Plt Count Cancelled 104 L Seg Neutrophils % Cancelled 70.2 Sodium 132.0 L Potassium 4.1 Chloride 107 Carbon Dioxide 19 L Anion Gap 6 BUN 8 Creatinine 0.89 Est GFR ( Amer) > 60 Glucose 199 H Calcium 8.1 L Blood Type Antibody Screen 11/20/19 11/20/19 10:13 17:05 WBC 10.4 RBC 2.28 L Hgb 7.7 L Hct 21.9 L MCV 96 MCH 33.7 H MCHC 35.0 RDW 18.6 H Plt Count 103 L Seg Neutrophils % Sodium Potassium Chloride Carbon Dioxide Anion Gap BUN Creatinine Est GFR ( Amer) Glucose Calcium Blood Type O POSITIVE Antibody Screen NEGATIVE Impressions: Foot X-Ray 11/16/19 08:20 IMPRESSION: Subcutaneous gas is seen within the plantar surface of the great toe noted. No radiographic findings of osseous extension. Assessment and Plan - Diagnosis (1) Osteomyelitis of foot Qualifiers: Osteomyelitis type: other Laterality: right Qualified Code(s): M86.8X7 - Other osteomyelitis, ankle and foot Is this a current diagnosis for this admission?: Yes Plan: Acute on chronic, on previous admission refused surgery and left AMA Admitted with worsening edema/erythema/pain with bloody drainage from right foot ulcer Daptomycin and Zosyn given on admission, transition to daptomycin/cefepime as she experienced TONYA last admission on vancomycin General surgery consulted for right BKA, completed 11/15, drain will be removed outpatient at follow-up, they do not believe patient needs any further antibiotics at discharge COVID pending for surgery Pain management with home narcotics and as needed IV meds here Blood cultures no growth to date Pathology sent on 11/16 pending Added gabapentin for nerve pain at stump Will need follow-up with prosthetics once her stump heals more Bowel regimen Needs ongoing physical therapy and Occupational Therapy to help with adjustment and amputation Follow-up pathology (2) Diabetes mellitus type 2 in nonobese Is this a current diagnosis for this admission?: Yes (3) Hypokalemia Is this a current diagnosis for this admission?: Yes (4) COPD (chronic obstructive pulmonary disease) Is this a current diagnosis for this admission?: Yes (5) Cellulitis of right lower extremity Is this a current diagnosis for this admission?: Yes (6) Chronic narcotic dependence Is this a current diagnosis for this admission?: Yes (7) Diabetic foot ulcer associated with type 2 diabetes mellitus Qualifiers: Diabetic foot ulcer location: midfoot Laterality: right Is this a current diagnosis for this admission?: Yes (8) JENNIFER (obstructive sleep apnea) Is this a current diagnosis for this admission?: Yes (9) HTN (hypertension) Is this a current diagnosis for this admission?: Yes (10) Diabetic foot infection Is this a current diagnosis for this admission?: Yes - Time Time Spent with patient: 25-34 minutes Medications reviewed and adjusted accordingly: Yes Anticipated Discharge Disposition: Home with Home Health Anticipated Discharge Timeframe: within 48 hours - Inpatient Certification Based on my medical assessment, after consideration of the patient's comorbidi ties, presenting symptoms, or acuity I expect that the services needed warrant INPATIENT care.: Yes I certify that my determination is in accordance with my understanding of Marco A mcmahan's requirements for reasonable and necessary INPATIENT services [42 CFR 412.3e].: Yes Medical Necessity: Significant Comorbidiites Make Outpatient Treatment Too Risky, Need Close Monitoring Due to Risk of Patient Decompensation, Need for IV Antibiotics, Risk of Complication if Not Cared For in Hospital, Risk of Diagnosis Which Will Require Inpatient Eval/Care/Monitoring
[2019-11-20] MEDS: TRAZODONE HCL 50 MG TABLET PO SCH (21:31)
[2019-11-20] MEDS: DAPTOMYCIN 800 MG in NORMAL SALINE 50 ML IV SCH (21:33)
[2019-11-21] MEDS: HYDROMORPHONE HCL INJ/PF 2 MG/ML AMPULE IV PRN ×6 (01:53→22:44)
[2019-11-21 06:15] LABS: ABSOLUTE EOSINOPHILS # (AUTO) 0.3 10^3/uL (0.0-0.6); ABSOLUTE LYMPHOCYTES (AUTO) 1.8 10^3/uL (0.5-4.7); ABSOLUTE MONOCYTES (AUTO) 1.1 10^3/uL (0.1-1.4); ABSOLUTE NEUT (AUTO) 7.1 10^3/uL (1.7-8.2); BASOPHILS % (AUTO) 0.3 % (0-2); EOSINOPHILS % (AUTO) 2.8 % (0-6); HEMATOCRIT 22.3 % (36.0-47.0); LYMPHOCYTES % (AUTO) 17.5 % (13-45); MEAN CORPUSCULAR HGB CONC 34.8 g/dL (32.0-36.0); MEAN CORPUSCULAR VOLUME 98 fl (80-97); MONOCYTES % (AUTO) 10.4 % (3-13); PLATELET COUNT 109 10^3/uL (150-450); RED BLOOD COUNT 2.28 10^6/uL (3.72-5.28); RED CELL DISTRIBUTION WIDTH 19.8 % (11.5-14.0); TOTAL CELLS COUNTED % (AUTO) 100 %; WHITE BLOOD COUNT 10.2 10^3/uL (4.0-10.5)
[2019-11-21 06:17] LABS: HEMOGLOBIN 7.8 g/dL (12.0-15.5)
[2019-11-21] MEDS: KETOROLAC TROMETHAMINE INJ/PF 30 MG/1 ML SDV IV SCH ×3 (06:48→21:56)
[2019-11-21] MEDS: BUSPIRONE HCL 10 MG TABLET PO SCH ×3 (06:49→21:55)
[2019-11-21] MEDS: INSULIN LISPRO 100 UNIT/ML 3 ML VIAL SUBCUT SCH ×7 (07:29→21:56)
[2019-11-21] MEDS: GLIPIZIDE XL 2.5 MG TAB.ER.24 PO SCH (07:30)
[2019-11-21] MEDS: OXYCODONE HCL IR 5 MG TABLET PO PRN ×3 (08:20→16:47)
[2019-11-21] MEDS: LURASIDONE HCL 40 MG TABLET PO SCH (09:45)
[2019-11-21] MEDS: CEFEPIME HCL 2 GM in DEXTROSE 5%-WATER 50 ML IV SCH ×2 (09:45→21:54)
[2019-11-21] MEDS: DOCUSATE SODIUM 100 MG/10 ML UDC PO SCH (09:45)
[2019-11-21] MEDS: POLYETHYLENE GLYCOL 3350 POWDER 17 GM/1 PACKET PO SCH (09:46)
[2019-11-21] MEDS: NICOTINE 21 MG/24 HR PATCH.TD24 TD SCH (09:46)
[2019-11-21] MEDS: MORPHINE SULFATE SR 15 MG TABLET PO SCH ×2 (09:46→21:57)
[2019-11-21] MEDS: ESCITALOPRAM OXALATE 10 MG TABLET PO SCH (09:46)
[2019-11-21] MEDS: GABAPENTIN 300 MG CAPSULE PO SCH ×2 (09:46→21:55)
[2019-11-21] MEDS: POTASSIUM CHLORIDE 20 MEQ PACKET PO SCH ×2 (09:46→21:56)
[2019-11-21] MEDS: ENOXAPARIN SODIUM INJ 40 MG/0.4 ML DISP.SYRIN SUBCUT SCH (09:47)
--- NOTE | 2019-11-21 12:54 | PDOC PROGRESS REPORT ---
Subjective Subjective:: Patient admitted for acute on chronic right foot osteomyelitis from a stage IV diabetic foot ulcer. Patient previously left AMA and was refusing surgery, however she was admitted here again agreeable to surgery and underwent right BKA with general surgery consult here. Pathology has been sent and is pending. Her pain is primarily controlled with her home medications and some additional IV narcotics as needed. Hemoglobin has very significant drop down to 5.8 after her surgery. I do not recall seeing any reports of significant surgical blood loss communicated to the nurse her overnight hospitalist. Recheck of hemoglobin yielded the same resolved. Patient was transfused 2 units PRBC. On my exam, I do not see any active bleeding. Other than right stump pain patient has no new complaints. Potassium was low as well as low magnesium and we are repleting both of these today. 11/18/2019 Patient seems to be doing well today although she is having some nerve pain at her amputation site. I have added gabapentin for this. She is asking for a nicotine patch which she can certainly have. We will need to help her have a bowel movement, give her MiraLAX, Dulcolax oral, Dulcolax rectal, or an enema if all the aforementioned interventions fail. Her hemoglobin is now at a more appropriate 7.7 rather than the overshot lab value of 8.6 seen previously. Blood cultures are negative. She would also like some simethicone for her gas but I feel like this would probably resolve if she had a bowel movement. Other than this, she has no new complaints today. 11/19/2019 Patient states her pain is mostly well controlled today she is still having some phantom sensations and pain at her right stump but these are tolerable. She states the gabapentin is very effective in treating her neuropathic pain. Her blood pressure remains lower limit normal and her hemoglobin is slightly lower today at 7.3. She also had low potassium and much higher blood glucose today. I have started her on mealtime lispro and continued her Lantus and sliding scale insulin. General surgery following and has suggested that she go home in the next 1 to 2 days with home health wound care. They do not believe patient will need any further antibiotics as they have cured the patient of her infection with source control. Await pathology to show clear margins. Likely discharge in next 1 to 2 days. Patient has no new complaints. 11/20/2019 Patient states she still having more neuropathic pain and would like her gabapentin increased which I believe is reasonable as it may also help us use less narcotics. Her hemoglobin is dropped again today and I have ordered her another unit of blood. I have decreased her Lasix and Aldactone doses by half to help with her lower blood pressure today. Her blood cultures are negative. She has no new complaints. As she is a Medicaid patient, unfortunately SNF is not available to her and she will need to go home with home health at discharge. 11/21/2019 Patient states her pain is better controlled today on high-dose gabapentin and she is also utilizing the narcotics that are available. We are still awaiting her pathology results but surgery seems confident that they have clean margins given they have now signed off. Patient's temperature has been around 99 today but otherwise her vitals are stable and her labs are also doing well. She states that she has Medicaid and will be able to go to SNF and she is willing to go there. We can arrange this she can probably be discharged at any time in the next 24 hours. She has no new complaints. Reason For Visit: ACUTE ON CHRONIC RIGHT FOOT OSTEOMYELITIS Physical Exam Vital Signs: Temp Pulse Resp BP Pulse Ox 99.7 F 103 H 18 125/74 97 11/21/19 07:25 11/21/19 07:02 11/21/19 07:02 11/21/19 07:02 11/21/19 07:02 Intake & Output 11/20/19 11/21/19 11/22/19 06:59 06:59 06:59 Intake Total 2826 2715 340 Output Total 1220 1200 400 Balance 1606 1515 -60 Weight 81.3 kg 91 kg Exam: General appearance: PRESENT: no acute distress, well-developed, well-nourished, states she wants to be discharged to a SNF rather than home Head exam: PRESENT: atraumatic, normocephalic Eye exam: PRESENT: conjunctiva pink Mouth exam: PRESENT: moist Respiratory exam: PRESENT: clear to auscultation kristina. ABSENT: rales, rhonchi, wheezes Cardiovascular exam: PRESENT: RRR. ABSENT: diastolic murmur, rubs, systolic murmur GI/Abdominal exam: PRESENT: normal bowel sounds, soft. ABSENT: distended, guarding, mass, organolmegaly, rebound, tenderness Extremities exam: PRESENT: pedal edema, mild edema, other - Right surgical stump mildly tender, healing, minimal drain output Neurological exam: PRESENT: alert, awake, oriented to person, oriented to place, oriented to time, oriented to situation Psychiatric exam: PRESENT: appropriate affect, normal mood Skin exam: PRESENT: dry, warm Results Laboratory Results: 11/21/19 05:27 11/20/19 04:49 11/20/19 11/21/19 17:05 05:27 WBC 10.4 10.2 RBC 2.28 L 2.28 L Hgb 7.7 L 7.8 L Hct 21.9 L 22.3 L MCV 96 98 H MCH 33.7 H 34.0 H MCHC 35.0 34.8 RDW 18.6 H 19.8 H Plt Count 103 L 109 L Seg Neutrophils % 69.0 11/16/19 09:12 Blood Blood Culture - Final NO GROWTH IN 5 DAYS Impressions: Foot X-Ray 11/16/19 08:20 IMPRESSION: Subcutaneous gas is seen within the plantar surface of the great toe noted. No radiographic findings of osseous extension. Assessment and Plan - Diagnosis (1) Osteomyelitis of foot Qualifiers: Osteomyelitis type: other Laterality: right Qualified Code(s): M86.8X7 - Other osteomyelitis, ankle and foot Is this a current diagnosis for this admission?: Yes Plan: Acute on chronic, on previous admission refused surgery and left AMA Admitted with worsening edema/erythema/pain with bloody drainage from right foot ulcer Daptomycin and Zosyn given on admission, transition to daptomycin/cefepime as she experienced TONYA last admission on vancomycin General surgery consulted for right BKA, completed 11/15, drain will be removed outpatient at follow-up, they do not believe patient needs any further antibiotics at discharge COVID pending for surgery Pain management with home narcotics and as needed IV meds here Blood cultures no growth to date Pathology sent on 11/16 pending Added gabapentin for nerve pain at stump Will need follow-up with prosthetics once her stump heals more Bowel regimen Needs ongoing physical therapy and Occupational Therapy to help with adjustment and amputation Follow-up pathology Patient wants to go to SNF at discharge Plan to stop antibiotics at discharge (2) Diabetes mellitus type 2 in nonobese Is this a current diagnosis for this admission?: Yes Plan: Correctional insulin, Accu-Cheks A1c unable to be done due to severe anemia postop Diabetic diet Add mealtime lispro Controlled (3) Hypokalemia Is this a current diagnosis for this admission?: Yes (4) COPD (chronic obstructive pulmonary disease) Is this a current diagnosis for this admission?: Yes (5) Cellulitis of right lower extremity Is this a current diagnosis for this admission?: Yes (6) Chronic narcotic dependence Is this a current diagnosis for this admission?: Yes (7) Diabetic foot ulcer associated with type 2 diabetes mellitus Qualifiers: Diabetic foot ulcer location: midfoot Laterality: right Is this a current diagnosis for this admission?: Yes (8) JENNIFER (obstructive sleep apnea) Is this a current diagnosis for this admission?: Yes (9) HTN (hypertension) Is this a current diagnosis for this admission?: Yes (10) Diabetic foot infection Is this a current diagnosis for this admission?: Yes - Time Time Spent with patient: 15-24 minutes Medications reviewed and adjusted accordingly: Yes Anticipated Discharge Disposition: Half-Way Facility Anticipated Discharge Timeframe: within 24 hours - Inpatient Certification Based on my medical assessment, after consideration of the patient's comorbidities, presenting symptoms, or acuity I expect that the services needed warrant INPATIENT care.: Yes I certify that my determination is in accordance with my understanding of Medicare's requirements for reasonable and necessary INPATIENT services [42 CFR 412.3e].: Yes Medical Necessity: Significant Comorbidiites Make Outpatient Treatment Too Risky, Need Close Monitoring Due to Risk of Patient Decompensation, Need for Pain Control, Need for IV Antibiotics, Risk of Complication if Not Cared For in Hospital, Risk of Diagnosis Which Will Require Inpatient Eval/Care/Monitoring
[2019-11-21] MEDS: TRAZODONE HCL 50 MG TABLET PO SCH (21:56)
[2019-11-21] MEDS: DAPTOMYCIN 800 MG in NORMAL SALINE 50 ML IV SCH (22:40)
[2019-11-22] MEDS: OXYCODONE HCL IR 5 MG TABLET PO PRN ×5 (00:50→20:42)
[2019-11-22] MEDS: HYDROMORPHONE HCL INJ/PF 2 MG/ML AMPULE IV PRN ×4 (03:00→17:31)
[2019-11-22] MEDS: BUSPIRONE HCL 10 MG TABLET PO SCH ×3 (05:20→22:24)
[2019-11-22 05:55] LABS: ANION GAP 5 (5-19); BLOOD UREA NITROGEN 17 mg/dL (7-20); CALCIUM 8.7 mg/dL (8.4-10.2); CARBON DIOXIDE 20 mmol/L (22-30); CHLORIDE 107 mmol/L (98-107); GLUCOSE 141 mg/dL (75-110); POTASSIUM 5.5 mmol/L (3.6-5.0)
[2019-11-22] MEDS ORDERED: NORMAL SALINE 1000 ML 2,000 ML IV ONE (08:12)
[2019-11-22] MEDS: GLIPIZIDE XL 2.5 MG TAB.ER.24 PO SCH (08:13)
[2019-11-22] MEDS: INSULIN LISPRO 100 UNIT/ML 3 ML VIAL SUBCUT SCH ×7 (08:15→22:23)
[2019-11-22] MEDS: DOCUSATE SODIUM 100 MG/10 ML UDC PO SCH (09:17)
[2019-11-22] MEDS: GABAPENTIN 300 MG CAPSULE PO SCH ×2 (09:17→22:25)
[2019-11-22] MEDS: POLYETHYLENE GLYCOL 3350 POWDER 17 GM/1 PACKET PO SCH (09:17)
[2019-11-22] MEDS: MORPHINE SULFATE SR 15 MG TABLET PO SCH ×2 (09:17→22:24)
[2019-11-22] MEDS: LURASIDONE HCL 40 MG TABLET PO SCH (09:17)
[2019-11-22] MEDS: NICOTINE 21 MG/24 HR PATCH.TD24 TD SCH (09:17)
[2019-11-22] MEDS: ESCITALOPRAM OXALATE 10 MG TABLET PO SCH (09:17)
[2019-11-22] MEDS: POTASSIUM CHLORIDE 20 MEQ PACKET PO SCH (09:18)
[2019-11-22] MEDS: ENOXAPARIN SODIUM INJ 40 MG/0.4 ML DISP.SYRIN SUBCUT SCH (09:18)
[2019-11-22] MEDS: FUROSEMIDE 40 MG TABLET PO SCH (09:20)
[2019-11-22 15:24] LABS: ANION GAP 7 (5-19); BLOOD UREA NITROGEN 15 mg/dL (7-20); CALCIUM 8.1 mg/dL (8.4-10.2); CARBON DIOXIDE 16 mmol/L (22-30); CHLORIDE 108 mmol/L (98-107); GLUCOSE 156 mg/dL (75-110)
--- NOTE | 2019-11-22 15:33 | PDOC PROGRESS REPORT ---
Subjective Progress Note for:: 11/22/19 Subjective:: Pain is uncontrolled. Glucose remains uncontrolled. Reason For Visit: ACUTE ON CHRONIC RIGHT FOOT OSTEOMYELITIS Physical Exam Vital Signs: Temp Pulse Resp BP Pulse Ox 99.7 F 94 18 94/45 L 93 11/22/19 08:23 11/22/19 07:15 11/22/19 07:15 11/22/19 07:15 11/22/19 07:15 Intake & Output 11/21/19 11/22/19 11/23/19 06:59 06:59 06:59 Intake Total 2715 1955 300 Output Total 1200 1220 Balance 1515 735 300 Weight 91 kg 91.2 kg General appearance: PRESENT: no acute distress Mouth exam: PRESENT: moist Neck exam: ABSENT: JVD Respiratory exam: PRESENT: clear to auscultation kristina, unlabored Cardiovascular exam: PRESENT: RRR GI/Abdominal exam: PRESENT: normal bowel sounds Extremities exam: PRESENT: other - R BKA with drain in place Neurological exam: PRESENT: alert, oriented to person, oriented to place, oriented to time, oriented to situation Psychiatric exam: PRESENT: flat affect Skin exam: ABSENT: rash Results Laboratory Results: 11/21/19 05:27 11/22/19 05:04 Sodium 131.5 L Potassium 5.5 H Chloride 107 Carbon Dioxide 20 L Anion Gap 5 BUN 17 Creatinine 1.06 Est GFR ( Amer) > 60 Glucose 141 H Calcium 8.7 11/16/19 08:40 Blood Blood Culture - Final NO GROWTH IN 5 DAYS Impressions: Foot X-Ray 11/16/19 08:20 IMPRESSION: Subcutaneous gas is seen within the plantar surface of the great toe noted. No radiographic findings of osseous extension. Assessment and Plan - Plan Summary Summary: Diabetic foot ulcer associated with type 2 diabetes mellitus Osteomyelitis of RLE s/p R BKA - Acute on chronic infection (during previous admission, she refused surgery and left AMA) - Admitted with worsening edema/erythema/pain with bloody drainage from right foot ulcer - Daptomycin and Zosyn given on admission, transition to daptomycin/cefepime as she experienced TONYA last admission on vancomycin - General surgery consulted for right BKA, completed 11/15, drain will be removed outpatient at follow-up, they do not believe patient needs any further antibiotics at discharge - Blood cultures no growth to date - Pathology sent on 11/16 pending - Will need follow-up with prosthetics once her stump heals more - Needs ongoing physical therapy and Occupational Therapy Pain: uncontrolled - Added gabapentin for nerve pain at stump - increase MS Contin from 7.5 to 15 mg Q12H - decrease Dilaudid IV from Q3 to Q4H prn - keep oxycodone dose at 10 mg Q4H prn Diabetes mellitus type 2: uncontrolled - Accu-Cheks - A1c unable to be done due to severe anemia postop - add Lantus 10 units HS - lispro 5 units TID AC - SSI Hyperkalemia: likely due to oral supplementation - will bolus 2 L NS, discontinue K supplements and discontinue spironolactone - repeat BMP this afternoon and if remains elevated, will give dose of Lasix DVT ppx: Lovenox - Time Time Spent with patient: 35 or more minutes Anticipated Discharge Disposition: [facility] Facility Anticipated Discharge Timeframe: within 24 hours
[2019-11-22 15:37] LABS: POTASSIUM 4.4 mmol/L (3.6-5.0)
[2019-11-22] MEDS: INSULIN GLARGINE,HUM.REC.ANLOG 1,000 UNIT/10 ML VIAL SUBCUT SCH (22:24)
[2019-11-22] MEDS: TRAZODONE HCL 50 MG TABLET PO SCH (22:25)
[2019-11-23] MEDS: HYDROMORPHONE HCL INJ/PF 2 MG/ML AMPULE IV PRN ×4 (02:23→20:08)
[2019-11-23 03:02] LABS: APPEARANCE,URINE CLOUDY; BILIRUBIN,URINE NEGATIVE (NEGATIVE); COLOR,URINE RED; GLUCOSE, URINE NEGATIVE (NEGATIVE); KETONES,URINE NEGATIVE (NEGATIVE); LEUKOCYTE ESTERASE,URINE MODERATE (NEGATIVE); NITRITE,URINE NEGATIVE (NEGATIVE); PROTEIN,URINE 100 mg/dL (NEGATIVE); URINE SPECIFIC GRAVITY 1.011; UROBILINOGEN,URINE NEGATIVE mg/dL (<2.0)
[2019-11-23] MEDS: ACETAMINOPHEN 325 MG TABLET PO PRN ×2 (03:52→18:48)
[2019-11-23] MEDS: BUSPIRONE HCL 10 MG TABLET PO SCH ×3 (05:23→22:33)
[2019-11-23] MEDS: OXYCODONE HCL IR 5 MG TABLET PO PRN ×2 (05:27→10:11)
[2019-11-23] MEDS ORDERED: CEFTRIAXONE 1 GM/D5W RTU 1 GM/50 ML RTUPB IV ONE (06:00)
[2019-11-23] MEDS: INSULIN LISPRO 100 UNIT/ML 3 ML VIAL SUBCUT SCH ×7 (07:31→22:34)
[2019-11-23] MEDS: GLIPIZIDE XL 2.5 MG TAB.ER.24 PO SCH (07:31)
[2019-11-23] MEDS: GABAPENTIN 300 MG CAPSULE PO SCH ×2 (09:18→22:33)
[2019-11-23] MEDS: MORPHINE SULFATE SR 15 MG TABLET PO SCH ×2 (09:19→22:32)
[2019-11-23] MEDS: ESCITALOPRAM OXALATE 10 MG TABLET PO SCH (09:19)
[2019-11-23] MEDS: NICOTINE 21 MG/24 HR PATCH.TD24 TD SCH (09:21)
[2019-11-23] MEDS: POLYETHYLENE GLYCOL 3350 POWDER 17 GM/1 PACKET PO SCH (09:21)
[2019-11-23] MEDS: ENOXAPARIN SODIUM INJ 40 MG/0.4 ML DISP.SYRIN SUBCUT SCH (09:21)
[2019-11-23] MEDS: LURASIDONE HCL 40 MG TABLET PO SCH (09:24)
[2019-11-23] MEDS ORDERED: DOCUSATE SODIUM 100 MG CAPSULE PO SCH (10:00)
--- NOTE | 2019-11-23 14:04 | PDOC DISCHARGE SUMMARY ---
Impression - Admit/DC Date/PCP Admission Date/Primary Care Provider: 11/16/19 12:48 Discharge Date: 11/23/19 - Discharge Diagnosis (1) Diabetic foot infection Is this a current diagnosis for this admission?: Yes (2) Osteomyelitis of foot Is this a current diagnosis for this admission?: Yes (3) TONYA (acute kidney injury) Is this a current diagnosis for this admission?: Yes (4) Anemia Is this a current diagnosis for this admission?: Yes (5) Diabetes type 2, controlled Is this a current diagnosis for this admission?: Yes (6) Hyperglycemia due to type 2 diabetes mellitus Is this a current diagnosis for this admission?: Yes (7) Obesity (BMI 30.0-34.9) Is this a current diagnosis for this admission?: Yes (8) Sepsis Is this a current diagnosis for this admission?: Yes - Assessment Summary: Diabetic foot ulcer complicated by osteomyelitis of RLE s/p R BKA: Acute on chronic infection (during her previous admission, she refused surgery and left against medical advice). This time, she was admitted with worsening edema/erythema/pain with bloody drainage from right foot ulcer. Daptomycin and Zosyn given on admission, and then transitioned to daptomycin/cefepime as she experienced TONYA last admission on vancomycin. General surgery (Dr. Riccardo Hall) consulted for right BKA, which was completed on 11/15. She still has a surgical drain in place, which will be removed by surgery as outpatient at follow-up. She will also need follow-up appointment with prosthetics once her stump heals more. She needs ongoing physical therapy and Occupational Therapy given recent R BKA. She has completed antibiotic therapy. Diabetes mellitus type 2: HbA1c unable to be done due to severe anemia post- operatively. She has been maintained on Lantus 10 units HS, Lispro 5 units TID AC as well as SSI TID AC. She should have a HbA1c rechecked in 3 months. She should continue a carb-controlled diet. Acute Blood Loss Anemia: due to recent surgery. She should have a repeat CBC done in 3 months to assess severity of anemia and to see if she has recovered. Sacral Decubitus Ulcer: she has stage I-II skin breakdown on sacrum/buttocks which will need close monitoring and wound care. I would anticipate improvement with increased mobility and decreased time in bed/chairs. Jana skin infection of intriginous folds: most severe in the lower abdominal folds and around groin. We have seen improvement with topical Nystatin, which should be continued. Tobacco Dependence: controlled with Nicotine patches. She received smoking cessation counseling. Obesity (BMI 31): she would benefit from weight loss, diet and exercise to reduce weight. She is at high risk for further complications of DM2. COPD: unclear diagnosis, as she is only prescribed Duo-Nebs. Would consider initiation of Advair/Spiriva as outpatient. She would also benefit from outpatient sleep study to rule out JENNIFER given body habitus. - Additional Information Resuscitation Status: Full Code Discharge Diet: Cardiac, Diabetic Discharge Activity: Balance Activity w/Rest, Supervised Activity Referrals: RICCARDO HALL MD [ACTIVE STAFF] - (Right BKA) NATALIIA PAN DO [NO LOCAL MD] - Prescriptions: Morphine Sulfate [Ms-Contin Sr 15 mg Tablet] 30 mg PO Q12 #30 tablet.sa Oxycodone HCl [Oxy-Ir 5 mg Tablet] 20 mg PO Q4HP PRN #60 tablet PRN Reason: Home Medications: Escitalopram Oxalate [Lexapro] 40 mg PO DAILY 01/10/18 Buspirone HCl [Buspar 10 mg Tablet] 7.5 mg PO BID 07/28/19 Ergocalciferol (Vitamin D2) [Drisdol 50,000 unit (1.25MG) Capsule] 50,000 unit PO FR@1000 07/28/19 Furosemide [Lasix 40 mg Tablet] 40 mg PO Q2D 10/11/19 Glipizide [Glucotrol Xl 2.5 mg Tab.er] 2.5 mg PO ACBRKFST 10/11/19 Lurasidone HCl [Latuda] 20 mg PO DAILY 10/11/19 Trazodone HCl 150 mg PO QHS 10/11/19 Acetaminophen [Tylenol 325 mg Tablet] 650 mg PO Q4HP PRN tablet 11/23/19 Bisacodyl [Dulcolax 10 mg Supp.rect] 10 mg VT DAILYP PRN supp.rect 11/23/19 Bisacodyl [Dulcolax 5 mg Tablet] 5 mg PO DAILYP PRN tabec 11/23/19 Gabapentin [Neurontin 300 mg Capsule] 600 mg PO Q12 capsule 11/23/19 Insulin Glargine,Hum.rec.anlog [Lantus Insulin 100 Unit/1 ml 10 ml] 10 unit SUBCUT QHS unit 11/23/19 Insulin Lispro [Humalog Insulin (Lispro) 100 unit/mL] 0 - 12 unit SUBCUT ACHS unit 11/23/19 Insulin Lispro [Humalog Insulin (Lispro) 100 unit/mL] 5 unit SUBCUT AC unit 11/23/19 Ipratropium/Albuterol Sulfate [Duoneb 3 ml Ampul] 3 ml NEB RTQ2HP PRN vial.neb 11/23/19 Morphine Sulfate [Ms-Contin Sr 15 mg Tablet] 30 mg PO Q12 #30 tablet.sa 11/23/19 Nicotine [Nicoderm 21 mg/24 Hr Transderm Patch] 1 each TD DAILY patch.td24 11/23/19 Ondansetron [Zofran Odt 4 mg Tablet] 4 mg PO Q4HP PRN tab.rapdis 11/23/19 Oxycodone HCl [Oxy-Ir 5 mg Tablet] 20 mg PO Q4HP PRN #60 tablet 11/23/19 Polyethylene Glycol 3350 [Miralax Powder 17 gm/Packet] 17 gm PO DAILY powd.pack 11/23/19 Simethicone [Mylicon 80 mg Chewable Tablet] 80 mg PO QIDP PRN tab.chew 11/23/19 History of Present Illiness History of Present Illness: JOVANNI RENTERIA is a 49 year old female Physical Exam Vital Signs: Temp Pulse Resp BP Pulse Ox 98.4 F 75 18 104/52 L 95 11/23/19 10:00 11/23/19 08:02 11/23/19 08:02 11/23/19 08:02 11/23/19 08:02 Intake & Output 11/22/19 11/23/19 11/24/19 06:59 06:59 06:59 Intake Total 1955 1710 Output Total 1220 40 Balance 735 1670 Weight 91.2 kg 97.8 kg Results Laboratory Results: WBC 10.2 10^3/uL (4.0-10.5) 11/21/19 05:27 RBC 2.28 10^6/uL (3.72-5.28) L 11/21/19 05:27 Hgb 7.8 g/dL (12.0-15.5) L 11/21/19 05:27 Hct 22.3 % (36.0-47.0) L 11/21/19 05:27 MCV 98 fl (80-97) H 11/21/19 05:27 MCH 34.0 pg (27.0-33.4) H 11/21/19 05:27 MCHC 34.8 g/dL (32.0-36.0) 11/21/19 05:27 RDW 19.8 % (11.5-14.0) H 11/21/19 05:27 Plt Count 109 10^3/uL (150-450) L 11/21/19 05:27 Lymph % (Auto) 17.5 % (13-45) 11/21/19 05:27 [place] % (Auto) 10.4 % (3-13) 11/21/19 05:27 Eos % (Auto) 2.8 % (0-6) 11/21/19 05:27 Baso % (Auto) 0.3 % (0-2) 11/21/19 05:27 Absolute Neuts (auto) 7.1 10^3/uL (1.7-8.2) 11/21/19 05:27 Absolute Lymphs (auto) 1.8 10^3/uL (0.5-4.7) 11/21/19 05:27 Absolute Monos (auto) 1.1 10^3/uL (0.1-1.4) 11/21/19 05:27 Absolute Eos (auto) 0.3 10^3/uL (0.0-0.6) 11/21/19 05:27 Absolute Basos (auto) 0.0 10^3/uL (0.0-0.2) 11/21/19 05:27 Seg Neutrophils % 69.0 % (42-78) 11/21/19 05:27 Platelet Estimate Cancelled 11/20/19 04:49 ESR 98 mm/hr (0-20) H 11/16/19 08:40 Sodium 130.8 mmol/L (137-145) L 11/22/19 14:46 Potassium 4.4 mmol/L (3.6-5.0) D 11/22/19 14:46 Chloride 108 mmol/L (98-107) H 11/22/19 14:46 Carbon Dioxide 16 mmol/L (22-30) L 11/22/19 14:46 Anion Gap 7 (5-19) 11/22/19 14:46 BUN 15 mg/dL (7-20) 11/22/19 14:46 Creatinine 0.83 mg/dL (0.52-1.25) 11/22/19 14:46 Est GFR ( Amer) > 60 (>60) 11/22/19 14:46 Est GFR (MDRD) Non-Af > 60 (>60) 11/22/19 14:46 Glucose 156 mg/dL (75-110) H 11/22/19 14:46 POC Glucose 181 mg/dL (70-110) H 11/23/19 11:20 Hemoglobin A1c % Cancelled 11/17/19 06:05 Lactic Acid 2.3 mmol/L (0.7-2.1) H 11/16/19 11:32 Calcium 8.1 mg/dL (8.4-10.2) L 11/22/19 14:46 Phosphorus 4.1 mg/dL (2.5-4.5) 11/17/19 06:05 Magnesium 1.5 mg/dL (1.6-2.3) L 11/22/19 14:46 Total Bilirubin 1.0 mg/dL (0.2-1.3) 11/16/19 08:40 Direct Bilirubin 0.5 mg/dL (0.0-0.4) H 11/16/19 08:40 Neonat Total Bilirubin Not Reportable 11/16/19 08:40 Neonat Direct Bilirubin Not Reportable 11/16/19 08:40 Neonat Indirect Bili Not Reportable 11/16/19 08:40 AST 364 U/L (14-36) H 11/16/19 08:40 ALT 83 U/L (<35) H 11/16/19 08:40 Alkaline Phosphatase 335 U/L (38-126) H 11/16/19 08:40 C-Reactive Protein < 5.0 mg/L (<10.0) 11/16/19 08:40 Total Protein 8.8 g/dL (6.3-8.2) H 11/16/19 08:40 Albumin 3.6 g/dL (3.5-5.0) 11/16/19 08:40 Urine Color RED 11/23/19 02:35 Urine Appearance CLOUDY 11/23/19 02:35 Urine pH 6.0 (5.0-9.0) 11/23/19 02:35 Ur Specific [place] 1.011 11/23/19 02:35 Urine Protein 100 mg/dL (NEGATIVE) H 11/23/19 02:35 Urine Glucose (UA) NEGATIVE mg/dL (NEGATIVE) 11/23/19 02:35 Urine Ketones NEGATIVE mg/dL (NEGATIVE) 11/23/19 02:35 Urine Blood LARGE (NEGATIVE) H 11/23/19 02:35 Urine Nitrite NEGATIVE (NEGATIVE) 11/23/19 02:35 Urine Bilirubin NEGATIVE (NEGATIVE) 11/23/19 02:35 Urine Urobilinogen NEGATIVE mg/dL (<2.0) 11/23/19 02:35 Ur Leukocyte Esterase MODERATE (NEGATIVE) H 11/23/19 02:35 Urine WBC (Auto) 62 /HPF 11/23/19 02:35 Urine RBC (Auto) >182 /HPF 11/23/19 02:35 U Hyaline Cast (Auto) 4 /LPF 11/16/19 09:26 Squamous Epi Cells Auto 1 /HPF 11/16/19 09:26 U Non-Squamous Epis Auto 1 /HPF 11/23/19 02:35 Urine Mucus (Auto) RARE /LPF 11/16/19 09:26 Urine Ascorbic Acid NEGATIVE (NEGATIVE) 11/23/19 02:35 Urine HCG, Qual NEGATIVE (NEGATIVE) 11/16/19 09:26 Urine Opiates Screen NEGATIVE 11/16/19 09:26 Urine Methadone Screen NEGATIVE 11/16/19 09:26 Ur Barbiturates Screen NEGATIVE 11/16/19 09:26 Ur Phencyclidine Scrn NEGATIVE 11/16/19 09:26 Ur Amphetamines Screen NEGATIVE 11/16/19 09:26 U Benzodiazepines Scrn NEGATIVE 11/16/19 09:26 Urine Cocaine Screen NEGATIVE 11/16/19 09:26 U Marijuana (THC) Screen NEGATIVE 11/16/19 09:26 SARS-CoV-2 (PCR) NEGATIVE (NEGATIVE) 11/16/19 12:54 Slides for Path Review Cancelled 11/20/19 04:49 Blood Type O POSITIVE 11/20/19 10:13 Antibody Screen NEGATIVE 11/20/19 10:13 Crossmatch See Detail 11/20/19 10:13 Impressions: Foot X-Ray 11/16/19 05:09 IMPRESSION: 1. Questionable destructive changes involving the cuboid and base of the fifth metatarsal. These findings could be seen with osteomyelitis. MRI of the foot with contrast provided more complete characterization. 2. Diffuse overlying soft tissue edema and ulceration of the lateral right foot. copyright 2010 [employer]- All Rights Reserved Foot X-Ray 11/16/19 08:20 IMPRESSION: Subcutaneous gas is seen within the plantar surface of the great toe noted. No radiographic findings of osseous extension. Stroke Is this a Stroke Patient?: No Acute Heart Failure Is this a Heart Failure Patient?: No
--- NOTE | 2019-11-23 18:57 | PDOC PROGRESS REPORT ---
Subjective Progress Note for:: 11/23/19 Subjective:: Feeling okay. Continues to endorse pain at surgical site. Febrile overnight but denies chest pain, cough, abd pain, dysuria. She remains on broad spectrum IV antibiotics. COVID tested again today. Reason For Visit: ACUTE ON CHRONIC RIGHT FOOT OSTEOMYELITIS Physical Exam Vital Signs: Temp Pulse Resp BP Pulse Ox 99.6 F 84 18 99/67 L 94 11/23/19 16:14 11/23/19 16:14 11/23/19 16:14 11/23/19 16:14 11/23/19 16:14 Intake & Output 11/22/19 11/23/19 11/24/19 06:59 06:59 06:59 Intake Total 1955 1710 Output Total 1220 40 Balance 735 1670 Weight 91.2 kg 97.8 kg General appearance: PRESENT: no acute distress Eye exam: ABSENT: scleral icterus Mouth exam: PRESENT: moist Neck exam: ABSENT: JVD Respiratory exam: PRESENT: clear to auscultation kristina, unlabored Cardiovascular exam: PRESENT: RRR GI/Abdominal exam: PRESENT: normal bowel sounds, soft. ABSENT: tenderness Neurological exam: PRESENT: alert, awake, oriented to person, oriented to place, oriented to time, oriented to situation Psychiatric exam: PRESENT: appropriate affect Skin exam: PRESENT: other - cary skin infection of skin folds (abd/groin), sacral decub ulcer stage II Results Laboratory Results: 11/21/19 05:27 11/22/19 14:46 11/23/19 02:35 Urine Color RED Urine Appearance CLOUDY Urine pH 6.0 Ur Specific [place] 1.011 Urine Protein 100 H Urine Glucose (UA) NEGATIVE Urine Ketones NEGATIVE Urine Blood LARGE H Urine Nitrite NEGATIVE Ur Leukocyte Esterase MODERATE H Urine WBC (Auto) 62 Urine RBC (Auto) >182 Impressions: Foot X-Ray 11/16/19 08:20 IMPRESSION: Subcutaneous gas is seen within the plantar surface of the great toe noted. No radiographic findings of osseous extension. Assessment and Plan - Diagnosis (1) Diabetic foot infection Is this a current diagnosis for this admission?: Yes (2) Osteomyelitis of foot Qualifiers: Osteomyelitis type: other Laterality: right Qualified Code(s): M86.8X7 - Other osteomyelitis, ankle and foot Is this a current diagnosis for this admission?: Yes (3) TONYA (acute kidney injury) Is this a current diagnosis for this admission?: Yes (4) Anemia Is this a current diagnosis for this admission?: Yes (5) Diabetes type 2, controlled Qualifiers: Is this a current diagnosis for this admission?: Yes (6) Hyperglycemia due to type 2 diabetes mellitus Qualifiers: Diabetes mellitus mcc insulin use: 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 Qualified Code(s): E11.65 - Type 2 diabetes mellitus with hyperglycemia Is this a current diagnosis for this admission?: Yes (7) Obesity (BMI 30.0-34.9) Is this a current diagnosis for this admission?: Yes (8) Sepsis Qualifiers: Sepsis type: methicillin resistant Staphylococcus aureus Sepsis acute organ dysfunction status: with acute organ dysfunction Severe sepsis acute organ dysfunction type: acute renal failure Acute renal failure type: with acute tubular necrosis Severe sepsis shock status: without septic shock Qualified Code(s): A41.02 - Sepsis due to Methicillin resistant Staphylococcus aureus; R65.20 - Severe sepsis without septic shock; N17.0 - Acute kidney failure with tubular necrosis Is this a current diagnosis for this admission?: Yes - Plan Summary Summary: Fever: possibly due to UTI given development of hematuria. BCx and UCx pending. Started on cefepime. CTM closely. Low risk for DVT given that she has been on prophylaxis. Repeat COVID screen pending. Diabetic foot ulcer complicated by osteomyelitis of RLE s/p R BKA: Acute on chronic infection (during her previous admission, she refused surgery and left against medical advice). This time, she was admitted with worsening edema/erythema/pain with bloody drainage from right foot ulcer. Daptomycin and Zosyn given on admission, and then transitioned to daptomycin/cefepime as she experienced TONYA last admission on vancomycin. General surgery (Dr. Vic Hall) consulted for right BKA, which was completed on 11/15. She still has a surgical drain in place, which will be removed by surgery as outpatient at follow-up. She will also need follow-up appointment with prosthetics once her stump heals more. She needs ongoing physical therapy and Occupational Therapy given recent R BKA. She has completed antibiotic therapy. Diabetes mellitus type 2: HbA1c unable to be done due to severe anemia post- operatively. She has been maintained on Lantus 10 units HS, Lispro 5 units TID AC as well as SSI TID AC. She should have a HbA1c rechecked in 3 months. She should continue a carb-controlled diet. Acute Blood Loss Anemia: due to recent surgery. She should have a repeat CBC done in 3 months to assess severity of anemia and to see if she has recovered. Sacral Decubitus Ulcer: she has stage I-II skin breakdown on sacrum/buttocks which will need close monitoring and wound care. I would anticipate improvement with increased mobility and decreased time in bed/chairs. [place] skin infection of intriginous folds: most severe in the lower abdominal folds and around groin. We have seen improvement with topical Nystatin, which should be continued. Tobacco Dependence: controlled with Nicotine patches. She received smoking cessation counseling. Obesity (BMI 31): she would benefit from weight loss, diet and exercise to reduce weight. She is at high risk for further complications of DM2. COPD: unclear diagnosis, as she is only prescribed Duo-Nebs. Would consider initiation of Advair/Spiriva as outpatient. She would also benefit from outpatient sleep study to rule out JENNIFER given body habitus. - Time Time Spent with patient: 35 or more minutes Anticipated Discharge Disposition: Long-Term Facility Anticipated Discharge Timeframe: within 24 hours
[2019-11-23] MEDS: TRAZODONE HCL 50 MG TABLET PO SCH (22:32)
[2019-11-23] MEDS: INSULIN GLARGINE,HUM.REC.ANLOG 1,000 UNIT/10 ML VIAL SUBCUT SCH (22:33)
[2019-11-23] MEDS: NYSTATIN TOPICAL POWDER 15 GM TP SCH (22:40)
[2019-11-23] MEDS: CEFEPIME HCL 2 GM in DEXTROSE 5%-WATER 50 ML IV SCH (22:41)
[2019-11-24] MEDS: OXYCODONE HCL IR 5 MG TABLET PO PRN ×3 (06:17→17:18)
[2019-11-24] MEDS: BUSPIRONE HCL 10 MG TABLET PO SCH ×3 (06:17→21:05)
[2019-11-24 06:47] LABS: HEMATOCRIT 21.2 % (36.0-47.0); MEAN CORPUSCULAR HEMOGLOBIN 33.4 pg (27.0-33.4); MEAN CORPUSCULAR HGB CONC 34.3 g/dL (32.0-36.0); MEAN CORPUSCULAR VOLUME 98 fl (80-97); PLATELET COUNT 152 10^3/uL (150-450); RED BLOOD COUNT 2.17 10^6/uL (3.72-5.28); RED CELL DISTRIBUTION WIDTH 18.9 % (11.5-14.0); WHITE BLOOD COUNT 8.3 10^3/uL (4.0-10.5)
[2019-11-24 06:55] LABS: HEMOGLOBIN 7.2 g/dL (12.0-15.5)
[2019-11-24 07:05] LABS: BLOOD UREA NITROGEN 12 mg/dL (7-20); CALCIUM 8.4 mg/dL (8.4-10.2); CARBON DIOXIDE 22 mmol/L (22-30); CHLORIDE 107 mmol/L (98-107); GLUCOSE 107 mg/dL (75-110); POTASSIUM 4.3 mmol/L (3.6-5.0)
[2019-11-24 07:13] LABS: ANION GAP 3 (5-19)
[2019-11-24] MEDS: INSULIN LISPRO 100 UNIT/ML 3 ML VIAL SUBCUT SCH ×7 (07:42→21:06)
[2019-11-24] MEDS: GLIPIZIDE XL 2.5 MG TAB.ER.24 PO SCH (07:42)
[2019-11-24] MEDS: HYDROMORPHONE HCL INJ/PF 2 MG/ML AMPULE IV PRN (07:42)
[2019-11-24] MEDS ORDERED: NORMAL SALINE 250 ML IV PRN ×2 (08:22)
[2019-11-24] MEDS ORDERED: ACETAMINOPHEN 325 MG TABLET PO PRN (08:22)
[2019-11-24] MEDS ORDERED: DIPHENHYDRAMINE HCL 25 MG CAPSULE PO PRN (08:22)
[2019-11-24] MEDS ORDERED: MAGNESIUM SULFATE 4 GM/100 ML RTUPB IV ONE (09:30)
[2019-11-24] MEDS: ENOXAPARIN SODIUM INJ 40 MG/0.4 ML DISP.SYRIN SUBCUT SCH (09:47)
[2019-11-24] MEDS ORDERED: FUROSEMIDE 20 MG TABLET PO SCH (10:00)
[2019-11-24] MEDS ORDERED: CEFTRIAXONE 1 GM/D5W RTU 1 GM/50 ML RTUPB IV SCH (10:00)
[2019-11-24] MEDS: NYSTATIN TOPICAL POWDER 15 GM TP SCH ×2 (10:03→21:08)
[2019-11-24] MEDS: NICOTINE 21 MG/24 HR PATCH.TD24 TD SCH (10:04)
[2019-11-24] MEDS: GABAPENTIN 300 MG CAPSULE PO SCH ×2 (10:04→21:05)
[2019-11-24] MEDS: ESCITALOPRAM OXALATE 10 MG TABLET PO SCH (10:05)
[2019-11-24] MEDS: LURASIDONE HCL 40 MG TABLET PO SCH (10:05)
[2019-11-24] MEDS: MORPHINE SULFATE SR 15 MG TABLET PO SCH ×2 (10:05→21:03)
[2019-11-24] MEDS: CEFEPIME HCL 2 GM in DEXTROSE 5%-WATER 50 ML IV SCH ×2 (10:06→21:07)
[2019-11-24] MEDS: POLYETHYLENE GLYCOL 3350 POWDER 17 GM/1 PACKET PO SCH (10:08)
--- NOTE | 2019-11-24 17:37 | PDOC PROGRESS REPORT ---
Subjective Progress Note for:: 11/24/19 Subjective:: She is feeling well today, no particular concerns. Reason For Visit: ACUTE ON CHRONIC RIGHT FOOT OSTEOMYELITIS Physical Exam Vital Signs: Temp Pulse Resp BP Pulse Ox 98.6 F 89 16 99/54 L 100 11/24/19 16:55 11/24/19 16:55 11/24/19 16:55 11/24/19 16:55 11/24/19 16:55 Intake & Output 11/23/19 11/24/19 11/25/19 06:59 06:59 06:59 Intake Total 1710 1200 200 Output Total 40 40 Balance 1670 1160 200 Weight 97.8 kg 93 kg General appearance: PRESENT: no acute distress Eye exam: ABSENT: scleral icterus Mouth exam: PRESENT: moist Throat exam: ABSENT: post pharyngeal erythema, tonsillar erythema, tonsillar exudate Neck exam: ABSENT: JVD Respiratory exam: PRESENT: clear to auscultation kristina, rhonchi, unlabored. ABSENT: crackles, rales Cardiovascular exam: PRESENT: RRR GI/Abdominal exam: PRESENT: normal bowel sounds, soft. ABSENT: tenderness Extremities exam: PRESENT: other - R BKA Neurological exam: PRESENT: alert, awake, oriented to person, oriented to place, oriented to time, oriented to situation Psychiatric exam: PRESENT: appropriate affect Results Laboratory Results: 11/24/19 06:08 11/24/19 06:08 11/24/19 11/24/19 11/24/19 06:08 06:08 09:38 WBC 8.3 RBC 2.17 L Hgb 7.2 L Hct 21.2 L MCV 98 H MCH 33.4 MCHC 34.3 RDW 18.9 H Plt Count 152 Sodium 132.1 L Potassium 4.3 Chloride 107 Carbon Dioxide 22 Anion Gap 3 L BUN 12 Creatinine 0.73 Est GFR ( Amer) > 60 Glucose 107 Calcium 8.4 Magnesium 1.5 L Blood Type O POSITIVE Antibody Screen NEGATIVE Impressions: Foot X-Ray 11/16/19 08:20 IMPRESSION: Subcutaneous gas is seen within the plantar surface of the great toe noted. No radiographic findings of osseous extension. Assessment and Plan - Diagnosis (1) Diabetic foot infection Is this a current diagnosis for this admission?: Yes (2) Osteomyelitis of foot Qualifiers: Osteomyelitis type: other Laterality: right Qualified Code(s): M86.8X7 - Other osteomyelitis, ankle and foot Is this a current diagnosis for this admission?: Yes (3) TONYA (acute kidney injury) Is this a current diagnosis for this admission?: Yes (4) Anemia Is this a current diagnosis for this admission?: Yes (5) Diabetes type 2, controlled Qualifiers: Is this a current diagnosis for this admission?: Yes (6) Hyperglycemia due to type 2 diabetes mellitus Qualifiers: Diabetes mellitus 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 insulin use: unspecified custodial insulin use status Qualified Code(s): E11.65 - Type 2 diabetes mellitus with hyperglycemia Is this a current diagnosis for this admission?: Yes (7) Obesity (BMI 30.0-34.9) Is this a current diagnosis for this admission?: Yes (8) Sepsis Qualifiers: Sepsis type: methicillin resistant Staphylococcus aureus Sepsis acute organ dysfunction status: with acute organ dysfunction Severe sepsis acute organ dysfunction type: acute renal failure Acute renal failure type: with acute tubular necrosis Severe sepsis shock status: without septic shock Qualified Code(s): A41.02 - Sepsis due to Methicillin resistant Staphylococcus aureus; R65.20 - Severe sepsis without septic shock; N17.0 - Acute kidney failure with tubular necrosis Is this a current diagnosis for this admission?: Yes - Plan Summary Summary: Fever: possibly due to UTI given development of hematuria. She is otherwise asymptomatic. BCx and UCx pending. Started on cefepime. CTM closely. Low risk for DVT given that she has been on prophylaxis. Repeat COVID screen pending. Diabetic foot ulcer complicated by osteomyelitis of RLE s/p R BKA: Acute on chronic infection (during her previous admission, she refused surgery and left against medical advice). This time, she was admitted with worsening edema/kimber[place] thema/pain with bloody drainage from right foot ulcer. Daptomycin and Zosyn given on admission, and then transitioned to daptomycin/cefepime as she experienced TONYA last admission on vancomycin. General surgery (Dr. Vic Hall) consulted for right BKA, which was completed on 11/15. She still has a surgical drain in place, which will be removed by surgery as outpatient at follow-up. She will also need follow-up appointment with prosthetics once her stump heals more. She needs ongoing physical therapy and Occupational Therapy given recent R BKA. She has completed antibiotic therapy. Acute on Chronic Pain, on Chronic Opioid Therapy: her home morphine/oxycodone regimen has been increased and IV dilaudid discontinued. Diabetes mellitus type 2: HbA1c unable to be done due to severe anemia post- operatively. She has been maintained on Lantus 10 units HS, Lispro 5 units TID AC as well as SSI TID AC. She should have a HbA1c rechecked in 3 months. She should continue a carb-controlled diet. Acute Blood Loss Anemia: due to recent surgery. She should have a repeat CBC done in 3 months to assess severity of anemia and to see if she has recovered. Hemoglobin has been consistently between 7-8 and she has required 4 units pRBC transfusion this admission. Sacral Decubitus Ulcer: she has stage I-II skin breakdown on sacrum/buttocks which will need close monitoring and wound care. I would anticipate improvement with increased mobility and decreased time in bed/chairs. [place]ana skin infection of intriginous folds: most severe in the lower abdominal folds and around groin. We have seen improvement with topical Nystatin, which should be continued. Tobacco Dependence: controlled with Nicotine patches. She received smoking cessation counseling. Obesity (BMI 31): she would benefit from weight loss, diet and exercise to reduce weight. She is at high risk for further complications of DM2. COPD: unclear diagnosis, as she is only prescribed Duo-Nebs. Would consider initiation of Advair/Spiriva as outpatient. She would also benefit from outpatient sleep study to rule out JENNIFER given body habitus. - Time Time Spent with patient: 35 or more minutes Anticipated Discharge Disposition: Longterm Facility Anticipated Discharge Timeframe: within 24 hours
[2019-11-24] MEDS: TRAZODONE HCL 50 MG TABLET PO SCH (21:04)
[2019-11-24] MEDS: INSULIN GLARGINE,HUM.REC.ANLOG 1,000 UNIT/10 ML VIAL SUBCUT SCH (21:27)
[2019-11-24 22:27] LABS: ABSOLUTE EOSINOPHILS # (AUTO) 0.3 10^3/uL (0.0-0.6); ABSOLUTE MONOCYTES (AUTO) 1.2 10^3/uL (0.1-1.4); ABSOLUTE NEUT (AUTO) 4.5 10^3/uL (1.7-8.2); BASOPHILS % (AUTO) 0.4 % (0-2); EOSINOPHILS % (AUTO) 4.1 % (0-6); HEMATOCRIT 25.1 % (36.0-47.0); HEMOGLOBIN 8.4 g/dL (12.0-15.5); MEAN CORPUSCULAR HEMOGLOBIN 31.9 pg (27.0-33.4); MEAN CORPUSCULAR HGB CONC 33.4 g/dL (32.0-36.0); MEAN CORPUSCULAR VOLUME 95 fl (80-97); MONOCYTES % (AUTO) 15.3 % (3-13); PLATELET COUNT 178 10^3/uL (150-450); RED BLOOD COUNT 2.63 10^6/uL (3.72-5.28); RED CELL DISTRIBUTION WIDTH 19.5 % (11.5-14.0); SEGMENTED NEUTROPHILS % (AUTO) 55.2 % (42-78); TOTAL CELLS COUNTED % (AUTO) 100 %; WHITE BLOOD COUNT 8.1 10^3/uL (4.0-10.5)
[2019-11-25] MEDS: OXYCODONE HCL IR 5 MG TABLET PO PRN ×4 (01:21→16:03)
[2019-11-25] MEDS: BUSPIRONE HCL 10 MG TABLET PO SCH ×2 (05:38→14:15)
[2019-11-25] MEDS: INSULIN LISPRO 100 UNIT/ML 3 ML VIAL SUBCUT SCH ×6 (07:51→17:30)
[2019-11-25] MEDS: GLIPIZIDE XL 2.5 MG TAB.ER.24 PO SCH (07:52)
[2019-11-25] MEDS: ACETAMINOPHEN 325 MG TABLET PO PRN (07:52)
[2019-11-25] MEDS: MORPHINE SULFATE SR 15 MG TABLET PO SCH (08:59)
[2019-11-25] MEDS: ERGOCALCIFEROL (VITAMIN D2) 50000 UNIT (1.25 MG) CAPSULE PO SCH (08:59)
[2019-11-25] MEDS: GABAPENTIN 300 MG CAPSULE PO SCH (09:01)
[2019-11-25] MEDS: NICOTINE 21 MG/24 HR PATCH.TD24 TD SCH (09:02)
[2019-11-25] MEDS: ESCITALOPRAM OXALATE 10 MG TABLET PO SCH (09:02)
[2019-11-25] MEDS: LURASIDONE HCL 40 MG TABLET PO SCH (09:02)
[2019-11-25] MEDS: CEFEPIME HCL 2 GM in DEXTROSE 5%-WATER 50 ML IV SCH (09:13)
[2019-11-25] MEDS: NYSTATIN TOPICAL POWDER 15 GM TP SCH (09:14)
[2019-11-25] MEDS: POLYETHYLENE GLYCOL 3350 POWDER 17 GM/1 PACKET PO SCH (09:14)
[2019-11-25] MEDS: ENOXAPARIN SODIUM INJ 40 MG/0.4 ML DISP.SYRIN SUBCUT SCH (12:19)
[2019-11-25 15:29] VITALS: BP 116/69
== END 2019-11-25 17:15 | DRG 616 ==
LOC: ER 03:30 → EH 12:48 → 4S 19:31
PROVIDERS: ADMIT Internal Medicine; ATTEND Hospitalist
PROC: 0Y6H0Z2 Detachment at Right Lower Leg, Mid, Open Approach (ICD-10-PCS; principal; 2019-11-17)
PROC: 30233N1 Transfusion of Nonautologous Red Blood Cells into Peripheral Vein, Percutaneous Approach (ICD-10-PCS; 2019-11-17)
PROC: 30233N1 Transfusion of Nonautologous Red Blood Cells into Peripheral Vein, Percutaneous Approach (ICD-10-PCS; 2019-11-20)
PROC: 30233N1 Transfusion of Nonautologous Red Blood Cells into Peripheral Vein, Percutaneous Approach (ICD-10-PCS; 2019-11-24)
DX: E11.69 Type 2 diabetes mellitus with other specified complication (principal); A41.02 Sepsis due to Methicillin resistant Staphylococcus aureus; R65.20 Severe sepsis without septic shock; M86.171 Other acute osteomyelitis, right ankle and foot; L03.115 Cellulitis of right lower limb; F11.20 Opioid dependence, uncomplicated; D62 Acute posthemorrhagic anemia; E11.621 Type 2 diabetes mellitus with foot ulcer; L97.519 Non-pressure chronic ulcer of other part of right foot with unspecified severity; L97.529 Non-pressure chronic ulcer of other part of left foot with unspecified severity; N17.9 Acute kidney failure, unspecified; E83.42 Hypomagnesemia; E87.6 Hypokalemia; L89.152 Pressure ulcer of sacral region, stage 2; I10 Essential (primary) hypertension; J44.9 Chronic obstructive pulmonary disease, unspecified; B37.2 Candidiasis of skin and nail; F41.8 Other specified anxiety disorders; G47.33 Obstructive sleep apnea (adult) (pediatric); F17.210 Nicotine dependence, cigarettes, uncomplicated; E66.9 Obesity, unspecified; Z79.84 Long term (current) use of oral hypoglycemic drugs; Z79.899 Other long term (current) drug therapy; Z20.828 Contact with and (suspected) exposure to other viral communicable diseases; Z68.31 Body mass index [BMI] 31.0-31.9, adult
CPT/HCPCS: 01482; 36415; 36430; 80048; 80053; 80307; 81001; 81025; 82962; 83605; 83735; 84100; 85025; 85027; 85652; 86140; 86850; 86900; 86901; 86920; 87040; 87086; 87635; 88307; 88311; 96365; 96366; 96375; 99140; 99285; C9803; J0330; J0692; J0696; J0878; J1170; J1815; J1885; J2250; J2270; J2405; J2543; J2704; J3010; J3370; J3475; J3490; J7030; J7060; J7120; P9016

== ENCOUNTER 2019-12-21 22:05 | Emergency (ER) | payer MEDICAID ==
[2019-12-21 22:18] VITALS: BP 117/75
[2019-12-21] MEDS ORDERED: ONDANSETRON 4 MG TAB.RAPDIS PO ONE (23:48)
--- NOTE | 2019-12-21 23:55 | ER Document Report ---
ED Medical Screen (RME) - General Stated Complaint: NAUSEA Time Seen by Provider: 12/21/19 23:47 Primary Care Provider: NATALIIA PAN DO [Primary Care Provider] - Follow up as needed Mode of Arrival: Ambulatory Information source: Patient Notes: Patient is a 49-year-old female coming in today via ambulance for nausea vomiting and diarrhea x3 days. She is lacking a right foot and appears to have some bandages wrapped around different areas of her lower extremities. She got here via ambulance. Due to her missing her right foot I was unable to get her over to the screening area. Will order labs based on the documented nausea vomiting and diarrhea x3 days. Patient is irritable and abrasive to me. Telling her boyfriend/ that she wants to leave without any further treatment. General: Nontoxic-appearing Pulmonary no respiratory distress Awake alert and oriented I have greeted and performed a rapid initial assessment of this patient. A comprehensive ED assessment and evaluation of the patient, analysis of test results and completion of the medical decision making process will be conducted by additional ED providers. TRAVEL OUTSIDE OF THE [place] IN LAST 30 DAYS: No - Related Data Allergies/Adverse Reactions: fire ant Allergy (Severe, Verified 10/11/19 09:43) Anaphylaxis bee venom protein (honey bee) Allergy (Verified 10/11/19 09:43) nitrofurantoin macrocrystalline [From Macrobid] Allergy (Verified 10/11/19 09:43) Sulfa (Sulfonamide Antibiotics) Allergy (Verified 10/11/19 09:43) sulfamethoxazole [From Bactrim] Allergy (Verified 10/11/19 09:43) trimethoprim [From Bactrim] Allergy (Verified 10/11/19 09:43) vancomycin Adverse Reaction (Verified 12/13/19 13:49) Past Medical History - Past Medical History Cardiac Medical History: Reports: Hx Hypertension Pulmonary Medical History: Reports: Hx Asthma, Hx Bronchitis, Hx COPD Neurological Medical History: Denies: Hx Seizures Endocrine Medical History: Reports: Hx Diabetes Mellitus Type 1, Hx Diabetes Mellitus Type 2 Renal/ Medical History: Denies: Hx Peritoneal Dialysis GI Medical History: Reports: Hx Ulcer Musculoskeltal Medical History: Denies Hx Gout, Denies Hx Muscle Weakness, Denies Hx Musculoskeletal Deformity, Denies Hx Musculoskeletal Trauma Psychiatric Medical History: Reports: Hx Anxiety, Hx Depression Past Surgical History: Reports: Hx Abdominal Surgery - GBP, Hx Section, Hx Cholecystectomy, Hx Gastric Bypass Surgery, Hx Tonsillectomy. Denies: Hx Hysterectomy - Immunizations Immunizations up to date: Yes Hx Diphtheria, Pertussis, Tetanus Vaccination: Yes - 2016 Physical Exam - Vital signs Vitals: Temp Pulse Resp BP Pulse Ox 98.7 F 90 18 117/75 97 12/21/19 22:16 12/21/19 22:16 12/21/19 22:16 12/21/19 22:16 12/21/19 22:16 Course - Vital Signs Vital signs: Temp Pulse Resp BP Pulse Ox 98.7 F 90 18 117/75 97 12/21/19 22:16 12/21/19 22:16 12/21/19 22:16 12/21/19 22:16 12/21/19 22:16 Doctor's Discharge - Discharge Referrals: NATALIIA PAN DO [Primary Care Provider] - Follow up as needed
== END 2019-12-22 | disposition left against medical advice (07) ==
LOC: ER 22:05
DX: R11.2 Nausea with vomiting, unspecified (principal); R19.7 Diarrhea, unspecified; I10 Essential (primary) hypertension
CPT/HCPCS: 99281

== ENCOUNTER 2020-02-03 21:00 | Inpatient (IN) | payer MEDICAID ==
--- NOTE | 2020-02-03 23:55 | ER Document Report ---
ED Medical Screen (RME) - General Chief Complaint: Skin Problem Stated Complaint: POSSIBLE INFECTION TO LEFT FOOT Time Seen by Provider: 02/03/20 23:49 Primary Care Provider: CLARICE BARAJAS SATURATOR TENDER, SATURATOR TENDER [Primary Care Provider] - Follow up as needed Mode of Arrival: Wheelchair Information source: Patient Notes: HPI; a 49-year-old female past medical history significant for diabetes, right BKA, was sent to the emergency room by her wound care doctor for possible IV antibiotics. States she is been going to the wound center for wound care to her left foot. Is currently on Keflex and Levaquin. States they are concerned about osteomyelitis and need for IV antibiotics. Denies any fevers. States she has been having some bleeding from the wound site. PE: Alert and oriented x3. Mild distress noted. Lungs: Clear to auscultation without rales, rhonchi, wheezes. Heart: Tachycardic without murmurs, rubs, gallops. Unable to assess wound in triage. I have greeted and performed a rapid initial assessment of this patient. A comprehensive ED assessment and evaluation of the patient, analysis of test results and completion of the medical decision making process will be conducted by additional ED providers. I have specifically instructed the patient or family members with the patient to immediately return to any nursing staff should anything change in the patient's condition or with their chief complaint. TRAVEL OUTSIDE OF THE [place] IN LAST 30 DAYS: No - Related Data Allergies/Adverse Reactions: fire ant Allergy (Severe, Verified 02/03/20 23:49) Anaphylaxis bee venom protein (honey bee) Allergy (Verified 02/03/20 23:49) nitrofurantoin macrocrystalline [From Macrobid] Allergy (Verified 02/03/20 23:49) Sulfa (Sulfonamide Antibiotics) Allergy (Verified 02/03/20 23:49) sulfamethoxazole [From Bactrim] Allergy (Verified 02/03/20 23:49) trimethoprim [From Bactrim] Allergy (Verified 02/03/20 23:49) vancomycin Adverse Reaction (Verified 02/03/20 23:49) Past Medical History - Past Medical History Cardiac Medical History: Reports: Hx Hypertension Pulmonary Medical History: Reports: Hx Asthma, Hx Bronchitis, Hx COPD Neurological Medical History: Denies: Hx Seizures Endocrine Medical History: Reports: Hx Diabetes Mellitus Type 1, Hx Diabetes Mellitus Type 2 Renal/ Medical History: Denies: Hx Peritoneal Dialysis GI Medical History: Reports: Hx Ulcer Musculoskeltal Medical History: Denies Hx Gout, Denies Hx Muscle Weakness, Denies Hx Musculoskeletal Deformity, Denies Hx Musculoskeletal Trauma Psychiatric Medical History: Reports: Hx Anxiety, Hx Depression Past Surgical History: Reports: Hx Abdominal Surgery - GBP, Hx Section, Hx Cholecystectomy, Hx Gastric Bypass Surgery, Hx Tonsillectomy. Denies: Hx Hysterectomy - Immunizations Immunizations up to date: Yes Hx Diphtheria, Pertussis, Tetanus Vaccination: Yes - 2016 Physical Exam - Vital signs Vitals: Temp Pulse Resp Pulse Ox 97.4 F 102 H 32 H 100 02/03/20 21:37 02/03/20 21:37 02/03/20 21:37 02/03/20 21:37 Course - Vital Signs Vital signs: Temp Pulse Resp BP Pulse Ox 98.1 F 74 16 98/62 L 93 02/03/20 21:52 02/03/20 21:52 02/03/20 21:52 02/03/20 21:52 02/03/20 21:52 Doctor's Discharge - Discharge Referrals: CLARICE BARAJAS SATURATOR TENDER, SATURATOR TENDER [Primary Care Provider] - Follow up as needed
[2020-02-04 01:35] LABS: ABSOLUTE EOSINOPHILS # (AUTO) 0.1 10^3/uL (0.0-0.6); ABSOLUTE LYMPHOCYTES (AUTO) 1.9 10^3/uL (0.5-4.7); ABSOLUTE MONOCYTES (AUTO) 0.6 10^3/uL (0.1-1.4); ABSOLUTE NEUT (AUTO) 2.8 10^3/uL (1.7-8.2); BASOPHILS % (AUTO) 0.8 % (0-2); EOSINOPHILS % (AUTO) 2.3 % (0-6); HEMATOCRIT 31.4 % (36.0-47.0); HEMOGLOBIN 10.3 g/dL (12.0-15.5); LYMPHOCYTES % (AUTO) 35.6 % (13-45); MEAN CORPUSCULAR HEMOGLOBIN 32.1 pg (27.0-33.4); MEAN CORPUSCULAR HGB CONC 32.6 g/dL (32.0-36.0); MEAN CORPUSCULAR VOLUME 98 fl (80-97); MONOCYTES % (AUTO) 10.7 % (3-13); PLATELET COUNT 163 10^3/uL (150-450); SEGMENTED NEUTROPHILS % (AUTO) 50.6 % (42-78); TOTAL CELLS COUNTED % (AUTO) 100 %; WHITE BLOOD COUNT 5.5 10^3/uL (4.0-10.5)
--- NOTE | 2020-02-04 01:35 | RADIOLOGY REPORT (SQ) ---
Left foot x-ray three views on 02/04/2020 at 12:51 AM CLINICAL INDICATION: Left foot pain COMPARISON: 11/16/2019 FINDINGS: Bandaging is noted along the lateral aspect of the distal foot with likely open wound at this site. There is an adjacent presumed open fracture of the distal fifth metatarsal neck with the distal fracture fragment rotated and displaced. This could be a pathologic fracture related to changes of osteomyelitis. Alternatively the patient could have had resection of the distal fifth metatarsal head with some unusual high density packing within the wound at this site. This needs correlation with any procedural or surgical history. There is some periosteal reaction around the base of the fifth proximal phalanx with likely some erosive changes along the lateral base of the fifth proximal phalanx. Please correlate with physical exam and consider follow-up MRI. If the patient did have surgical resection of the distal fifth metatarsal there is cortical irregularity along the remaining distal fifth metatarsal that would also be concerning for osteomyelitis. There is diffuse osteopenia. Plantar calcaneal spur is noted. No other fracture is noted. Visualized joints are well aligned. IMPRESSION: Indeterminate findings associated with the distal fifth metatarsal as above. If the patient has not had surgery then the findings are consistent with a likely pathologic fracture of the distal fifth metatarsal neck related to changes of osteomyelitis with also changes concerning for osteomyelitis involving the base of the fifth proximal phalanx. If the patient has had surgery findings would still be worrisome for infection/osteomyelitis involving the distal fifth metatarsal and base of the fifth proximal phalanx. Please correlate with history and physical exam and if clinically indicated MRI could better evaluate.
[2020-02-04 02:16] LABS: ERYTHROCYTE SEDIMENTATION RATE 86 mm/hr (0-20)
[2020-02-04] MEDS ORDERED: FOLIC ACID 1 MG TABLET PO ONE (05:14)
[2020-02-04] MEDS ORDERED: MULTIVITAMIN TABLET PO ONE (05:14)
[2020-02-04] MEDS ORDERED: THIAMINE HCL 100 MG TABLET PO ONE (05:14)
[2020-02-04] MEDS ORDERED: CEFEPIME 2 GM/D5W RTU 2 GM/50 ML RTUPB IV ONE (05:17)
[2020-02-04] MEDS ORDERED: LORAZEPAM INJ 2 MG/1 ML VIAL IV ONE (05:19)
--- NOTE | 2020-02-04 05:43 | ER Document Report ---
ED General - General Chief Complaint: Wound Infection Stated Complaint: POSSIBLE INFECTION TO LEFT FOOT Time Seen by Provider: 02/03/20 23:49 Primary Care Provider: CLARICE BARAJAS NETWORK INTELLIGENCE ANALYST, NETWORK INTELLIGENCE ANALYST [NURSE PRACTITIONER] - Follow up as needed Mode of Arrival: Wheelchair Information source: Patient Notes: 49-year-old female with history of type 1 diabetes, right below the knee amputation, tobacco and alcohol abuse here with possible osteomyelitis of the left foot. Has been going to wound care for some time. Referred here for IV antibiotics for osteomyelitis. No fevers or chills. No nausea or vomiting. TRAVEL OUTSIDE OF THE [place] IN LAST 30 DAYS: No - Related Data Allergies/Adverse Reactions: fire ant Allergy (Severe, Verified 02/03/20 23:49) Anaphylaxis bee venom protein (honey bee) Allergy (Verified 02/03/20 23:49) nitrofurantoin macrocrystalline [From Macrobid] Allergy (Verified 02/03/20 23:49) Sulfa (Sulfonamide Antibiotics) Allergy (Verified 02/03/20 23:49) sulfamethoxazole [From Bactrim] Allergy (Verified 02/03/20 23:49) trimethoprim [From Bactrim] Allergy (Verified 02/03/20 23:49) vancomycin Adverse Reaction (Verified 02/03/20 23:49) Past Medical History - General Information source: Patient - Social History Smoking Status: Current Every Day Smoker Frequency of alcohol use: daily Drug Abuse: None Family History: CAD, Malignancy Patient has homicidal ideation: No - Past Medical History Cardiac Medical History: Reports: Hx Hypertension Pulmonary Medical History: Reports: Hx Asthma, Hx Bronchitis, Hx COPD Neurological Medical History: Denies: Hx Seizures Endocrine Medical History: Reports: Hx Diabetes Mellitus Type 1, Hx Diabetes Mellitus Type 2 Renal/ Medical History: Denies: Hx Peritoneal Dialysis GI Medical History: Reports: Hx Ulcer Musculoskeletal Medical History: Denies Hx Gout, Denies Hx Muscle Weakness, Denies Hx Musculoskeletal Deformity, Denies Hx Musculoskeletal Trauma Psychiatric Medical History: Reports: Hx Anxiety, Hx Depression Past Surgical History: Reports: Hx Abdominal Surgery - GBP, Hx Section, Hx Cholecystectomy, Hx Gastric Bypass Surgery, Hx Tonsillectomy. Denies: Hx Hysterectomy - Immunizations Immunizations up to date: Yes Hx Diphtheria, Pertussis, Tetanus Vaccination: Yes - 2017 Review of Systems - Review of Systems Notes: Constitutional: No fevers. No chills. EENT: No eye redness. No eye pain. No ear pain. No sore throat. Cardiovascular: No chest pain. No palpitations. Respiratory: No cough. No shortness of breath. No respiratory distress. Gastrointestinal: No abdominal pain. No nausea, vomiting, or diarrhea. Genitourinary: Atraumatic. No lesions. No pain. No discharge. Musculoskeletal: Atraumatic. No swelling. No deformities. Positive left foot infection Skin: No rash or lesions. Lymphatic: No swollen lymph nodes. Neurologic: No headache. No syncope. Psychiatric: No suicidal or homicidal ideation. Physical Exam - Vital signs Vitals: Temp Pulse Resp Pulse Ox 97.4 F 102 H 32 H 100 02/03/20 21:37 02/03/20 21:37 02/03/20 21:37 02/03/20 21:37 - Notes Notes: General: Chronically ill-appearing Cardiac: Well-perfused. Regular rate and rhythm. No murmurs, rubs, or gallops. Pulmonary: No respiratory distress. No cyanosis. Bilateral lung fiels are clear to auscultation. Abdominal: Non-distended. Non-rigid. Bowels sounds are present in all four quadrants. No guarding or rebound. HEENT: Head is atraumatic. Conjunctivae not reddened. No tearing. PERRL. EOMI. Orbits atraumatic. No periorbital swelling or erythema. Oropharynx is without erythema, swelling, or exudates. Neck: Supple. No adenopathy. No meningismus. Dermatologic: Warm with good turgor. No rash. Atraumatic. Chest: Atraumatic. No chest wall tenderness to palpation. Musculoskeletal: Ulcerated lesion over the left lateral foot over the level of the fifth toe. Tenacious yellow purulent drainage noted. Genitourinary: Examination deferred Neurologic: No gross neurologic deficits. Psychiatric: Normal mood. Course - Re-evaluation Re-evalutation: 02/04/20 05:59 Lab work noted. X-ray concerning for osteomyelitis. Patient has been evaluated by Dr. Means and will be admitted. - Vital Signs Vital signs: Temp Pulse Resp BP Pulse Ox 98.1 F 79 20 119/68 94 02/04/20 01:44 02/04/20 01:44 02/04/20 01:44 02/04/20 01:44 02/04/20 01:44 - Laboratory Result Diagrams: 02/04/20 01:14 Laboratory results interpreted by me: 02/04/20 02/04/20 01:14 01:14 RBC 3.20 L Hgb 10.3 L Hct 31.4 L MCV 98 H RDW 21.0 H ESR 86 H C-Reactive Protein 10.8 H Discharge - Discharge Clinical Impression: Osteomyelitis of left foot Qualifiers: Osteomyelitis type: unspecified type Qualified Code(s): M86.9 - Osteomyelitis, unspecified Condition: Good Disposition: ADMITTED INPATIENT Admitting Provider: [facility] Unit Admitted: Medical Floor Referrals: CLARICE BARAJAS NETWORK INTELLIGENCE ANALYST, NETWORK INTELLIGENCE ANALYST [NURSE PRACTITIONER] - Follow up as needed
[2020-02-04] MEDS ORDERED: IPRATROPIUM/ALBUTEROL 0.5-2.5 MG/3 ML AMPUL NEB PRN (06:11)
[2020-02-04] MEDS ORDERED: ACETAMINOPHEN 325 MG TABLET PO PRN (06:11)
[2020-02-04] MEDS ORDERED: ONDANSETRON HCL INJ/PF 4 MG/2 ML SDV IV PRN (06:11)
[2020-02-04] MEDS ORDERED: DEXTROSE 50%-WATER 25 GM/50 ML DISP.SYRIN IV PRN ×2 (06:24)
[2020-02-04] MEDS ORDERED: DEXTROSE 40% GEL 15 GM TUBE PO PRN ×2 (06:24)
[2020-02-04] MEDS ORDERED: GLUCAGON,HUMAN RECOMB 1 MG INJ IM PRN (06:24)
--- NOTE | 2020-02-04 06:32 | PDOC H&P ---
History of Present Illness Admission Date/PCP: 02/04/20 06:11 NATALIIA PAN DO Patient complains of: Left foot wound History of Present Illness: JOVANNI RENTERIA is a 49 year old female diabetes mellitus, COPD, sleep apnea, hypertension, right below-knee amputation and alcohol abuse who presents with 2 weeks duration of a nonhealing wound on the left lateral side of her foot. Patient was given a dose of Ativan for anxiety 10 minutes prior to my encounter and she was very sleepy but arousable. She is unable to give detailed answer to most questions. She states that she was told to come to the emergency by her primary care doctor. She denies fever, chills, nausea, vomiting, diarrhea or any change in her bowel or urinary habits. She denies any history of trauma. Past Medical History Cardiac Medical History: Reports: Hypertension Pulmonary Medical History: Reports: Asthma, Bronchitis, Chronic Obstructive Pulmonary Disease (COPD) Neurological Medical History: Denies: Seizures Endocrine Medical History: Reports: Diabetes Mellitus Type 1, Diabetes Mellitus Type 2 Musculoskeltal Medical History: Denies: Gout Psychiatric Medical History: Reports: Depression Past Surgical History Past Surgical History: Reports: Section, Cholecystectomy, Gastric Bypass Surgery, Tonsillectomy Denies: Hysterectomy Social History Information Source: Patient Smoking Status: Current Every Day Smoker Frequency of Alcohol Use: Heavy Hx Recreational Drug Use: No Drugs: None Hx Prescription Drug Abuse: No - Advance Directive Resuscitation Status: Full Code Family History Family History: CAD, Malignancy Parental Family History Reviewed: Yes Children Family History Reviewed: Yes Sibling(s) Family History Reviewed.: Yes Medication/Allergy Home Medications: Escitalopram Oxalate [Lexapro] 40 mg PO DAILY 01/10/18 Buspirone HCl [Buspar 10 mg Tablet] 7.5 mg PO BID 07/28/19 Ergocalciferol (Vitamin D2) [Drisdol 50,000 unit (1.25MG) Capsule] 50,000 unit PO FR@1000 07/28/19 Furosemide [Lasix 40 mg Tablet] 40 mg PO Q2D 10/11/19 Glipizide [Glucotrol Xl 2.5 mg Tab.er] 2.5 mg PO ACBRKFST 10/11/19 Lurasidone HCl [Latuda] 20 mg PO DAILY 10/11/19 Trazodone HCl 150 mg PO QHS 10/11/19 Acetaminophen [Tylenol 325 mg Tablet] 650 mg PO Q4HP PRN tablet 11/23/19 Bisacodyl [Dulcolax 10 mg Supp.rect] 10 mg UT DAILYP PRN supp.rect 11/23/19 Bisacodyl [Dulcolax 5 mg Tablet] 5 mg PO DAILYP PRN tabec 11/23/19 Gabapentin [Neurontin 300 mg Capsule] 600 mg PO Q12 capsule 11/23/19 Insulin Glargine,Hum.rec.anlog [Lantus Insulin 100 Unit/1 ml 10 ml] 10 unit SUBCUT QHS unit 11/23/19 Insulin Lispro [Humalog Insulin (Lispro) 100 unit/mL] 0 - 12 unit SUBCUT ACHS unit 11/23/19 Insulin Lispro [Humalog Insulin (Lispro) 100 unit/mL] 5 unit SUBCUT AC unit 11/23/19 Ipratropium/Albuterol Sulfate [Duoneb 3 ml Ampul] 3 ml NEB RTQ2HP PRN vial.neb 11/23/19 Morphine Sulfate [Ms-Contin Sr 15 mg Tablet] 30 mg PO Q12 #30 tablet.sa 11/23/19 Nicotine [Nicoderm 21 mg/24 Hr Transderm Patch] 1 each TD DAILY patch.td24 11/23/19 Ondansetron [Zofran Odt 4 mg Tablet] 4 mg PO Q4HP PRN tab.rapdis 11/23/19 Oxycodone HCl [Oxy-Ir 5 mg Tablet] 20 mg PO Q4HP PRN #60 tablet 11/23/19 Polyethylene Glycol 3350 [Miralax Powder 17 gm/Packet] 17 gm PO DAILY powd.pack 11/23/19 Simethicone [Mylicon 80 mg Chewable Tablet] 80 mg PO QIDP PRN tab.chew 11/23/19 Nystatin [Mycostatin Topical Powder 15 gm] 1 applic TP Q12 bottle 11/25/19 Allergies/Adverse Reactions: fire ant Allergy (Severe, Verified 02/03/20 23:49) Anaphylaxis bee venom protein (honey bee) Allergy (Verified 02/03/20 23:49) nitrofurantoin macrocrystalline [From Macrobid] Allergy (Verified 02/03/20 23:49) Sulfa (Sulfonamide Antibiotics) Allergy (Verified 02/03/20 23:49) sulfamethoxazole [From Bactrim] Allergy (Verified 02/03/20 23:49) trimethoprim [From Bactrim] Allergy (Verified 02/03/20 23:49) vancomycin Adverse Reaction (Verified 02/03/20 23:49) Review of Systems ROS unobtainable: Due to mental status - Unable to do review of system due to patient's being sedated by benzodiazepine, Other Physical Exam Vital Signs: Temp Pulse Resp BP Pulse Ox 98.1 F 79 20 119/68 94 02/04/20 01:44 02/04/20 01:44 02/04/20 01:44 02/04/20 01:44 02/04/20 01:44 Intake & Output 02/02/20 02/03/20 02/04/20 06:59 06:59 06:59 Intake Total 50 Balance 50 Weight 85.2 kg Additional comments: GENERAL APPEARANCE: Patient is very sleepy but arousable, in no acute distress HEENT: Normocephalic and atraumatic. No scleral icterus. Moist oral mucosa NECK: Supple. No lymphadenopathy or tenderness. No JVD CHEST: Symmetric. Nontender to palpation. LUNGS: Clear with good air entry bilaterally. No wheezing or crackles HEART: Regular rate and rhythm with normal S1 and S2. No murmurs, gallops, or rubs. ABDOMEN: Flat, soft, active bowel sounds, no direct or rebound tenderness. No organomegaly detected. EXTREMITIES: No cyanosis, clubbing, or edema. Has right below knee amputation. There is 4 x 5 cm ulcerated wound on the lateral side of the left foot extending into the plantar side with visible purulent and serosanguineous discharge MUSCULOSKELETAL: Has right BKA, no muscle atrophy noted SKIN: Warm, dry, and well perfused. NEUROLOGIC: No focal sensory or motor deficits are noted. Results Laboratory Results: 02/04/20 01:14 02/04/20 02/04/20 02/04/20 01:14 01:14 01:14 WBC 5.5 RBC 3.20 L Hgb 10.3 L Hct 31.4 L MCV 98 H MCH 32.1 MCHC 32.6 RDW 21.0 H Plt Count 163 Seg Neutrophils % 50.6 Lactic Acid 1.6 C-Reactive Protein 10.8 H Impressions: Foot X-Ray 02/03/20 23:52 IMPRESSION: Indeterminate findings associated with the distal fifth metatarsal as above. If the patient has not had surgery then the findings are consistent with a likely pathologic fracture of the distal fifth metatarsal neck related to changes of osteomyelitis with also changes concerning for osteomyelitis involving the base of the fifth proximal phalanx. If the patient has had surgery findings would still be worrisome for infection/osteomyelitis involving the distal fifth metatarsal and base of the fifth proximal phalanx. Please correlate with history and physical exam and if clinically indicated MRI could better evaluate. Assessment and Plan - Diagnosis (1) Osteomyelitis of left foot Qualifiers: Osteomyelitis type: unspecified type Qualified Code(s): M86.9 - Osteomyelitis, unspecified Is this a current diagnosis for this admission?: Yes Plan: Patient presents with a nonhealing wound Has no systemic signs of toxicity X-ray of the foot showed findings consistent with pathologic fracture of the fifth metatarsal with signs of osteomyelitis ESR and C-reactive protein elevated Started on linezolid and cefepime Follow-up with blood and wound culture Wound consult has been placed Consider ID consultation (2) Alcohol use disorder Is this a current diagnosis for this admission?: Yes Plan: Patient has a history of alcohol abuse Started on CIWA protocol with as needed Ativan (3) COPD (chronic obstructive pulmonary disease) Is this a current diagnosis for this admission?: Yes Plan: Stable and not in acute exacerbation Continue DuoNeb as needed (4) JENNIFER (obstructive sleep apnea) Is this a current diagnosis for this admission?: Yes Plan: Continue CPAP use nightly (5) HTN (hypertension) Is this a current diagnosis for this admission?: Yes Plan: Currently BP within acceptable limits Continue home medications (6) Diabetes mellitus Is this a current diagnosis for this admission?: Yes Plan: Placed patient on sliding scale insulin, hypoglycemia protocol and Accu-Chek On diabetic diet - Time Time Spent with patient: 35 or more minutes Total Critical Time (Minutes): 40 Medications reviewed and adjusted accordingly: Yes Anticipated Discharge Disposition: Home, Self Care Anticipated Discharge Timeframe: within 48 hours - Inpatient Certification Based on my medical assessment, after consideration of the patient's comorbidities, presenting symptoms, or acuity I expect that the services needed warrant INPATIENT care.: Yes I certify that my determination is in accordance with my understanding of Medicare's requirements for reasonable and necessary INPATIENT services [42 CFR 412.3e].: Yes Medical Necessity: Failure to Improve With Outpatient Therapy, Need for IV Antibiotics, Risk of Complication if Not Cared For in Hospital Post Hospital Care: D/C or Transfer Summary
[2020-02-04] MEDS ORDERED: LINEZOLID 600 MG/300 ML RTUPB IV SCH (07:00)
[2020-02-04 07:21] LABS: ANION GAP 14 (5-19); BLOOD UREA NITROGEN 4 mg/dL (7-20); CALCIUM 8.7 mg/dL (8.4-10.2); CARBON DIOXIDE 16 mmol/L (22-30); CHLORIDE 109 mmol/L (98-107); GLUCOSE 148 mg/dL (75-110); POTASSIUM 3.9 mmol/L (3.6-5.0)
[2020-02-04] MEDS: INSULIN REG, HUMAN 100 UNIT/ML 3 ML VIAL (PYX) SUBCUT SCH ×4 (10:48→22:01)
[2020-02-04] MEDS ORDERED: INFLUENZA QUAD (6MOS+) 2020-21 VAC 0.5 ML SYR IM ONE (11:00)
[2020-02-04] MEDS: LORAZEPAM INJ 2 MG/1 ML VIAL IV PRN ×3 (11:03→20:09)
[2020-02-04] MEDS: LINEZOLID 600 MG/300 ML RTUPB IV SCH ×2 (11:04→23:08)
[2020-02-04] MEDS: ENOXAPARIN SODIUM INJ 40 MG/0.4 ML DISP.SYRIN SUBCUT SCH (11:05)
[2020-02-04] MEDS ORDERED: CEFEPIME 2 GM/D5W RTU 4 GM/100 ML RTUPB IV ONE (18:17)
[2020-02-04] MEDS: CEFEPIME 2 GM/D5W RTU 2 GM/50 ML RTUPB IV SCH (18:31)
[2020-02-04] MEDS ORDERED: LINEZOLID 600 MG/300 ML RTUPB IV ONE (22:10)
[2020-02-05] MEDS: OXYCODONE HCL IR 5 MG TABLET PO PRN ×5 (00:18→22:07)
[2020-02-05] MEDS: LORAZEPAM INJ 2 MG/1 ML VIAL IV PRN ×6 (00:18→22:06)
[2020-02-05] MEDS: CEFEPIME 2 GM/D5W RTU 2 GM/50 ML RTUPB IV SCH (05:05)
[2020-02-05] MEDS: PANTOPRAZOLE SODIUM 40 MG TABLET.DR PO SCH (05:09)
[2020-02-05 06:34] LABS: HEMOGLOBIN 8.9 g/dL (12.0-15.5); MEAN CORPUSCULAR HEMOGLOBIN 32.5 pg (27.0-33.4); MEAN CORPUSCULAR HGB CONC 34.1 g/dL (32.0-36.0); MEAN CORPUSCULAR VOLUME 96 fl (80-97); PLATELET COUNT 129 10^3/uL (150-450); RED BLOOD COUNT 2.72 10^6/uL (3.72-5.28); RED CELL DISTRIBUTION WIDTH 20.2 % (11.5-14.0)
[2020-02-05 07:02] LABS: ALBUMIN 2.6 g/dL (3.5-5.0); ALKALINE PHOSPHATASE 236 U/L (38-126); ANION GAP 6 (5-19); ASPARTATE AMINO TRANSFERASE 42 U/L (14-36); BILIRUBIN,DIRECT 0.2 mg/dL (0.0-0.4); BLOOD UREA NITROGEN 5 mg/dL (7-20); CALCIUM 8.4 mg/dL (8.4-10.2); CARBON DIOXIDE 22 mmol/L (22-30); CHLORIDE 107 mmol/L (98-107); GLUCOSE 118 mg/dL (75-110); POTASSIUM 3.4 mmol/L (3.6-5.0); TOTAL PROTEIN 6.5 g/dL (6.3-8.2)
[2020-02-05] MEDS: INSULIN REG, HUMAN 100 UNIT/ML 3 ML VIAL (PYX) SUBCUT SCH ×4 (08:05→22:07)
[2020-02-05] MEDS: LURASIDONE HCL 40 MG TABLET PO SCH (09:13)
[2020-02-05] MEDS: ESCITALOPRAM OXALATE 10 MG TABLET PO SCH (09:13)
[2020-02-05] MEDS: FUROSEMIDE 40 MG TABLET PO SCH (09:14)
[2020-02-05] MEDS: ENOXAPARIN SODIUM INJ 40 MG/0.4 ML DISP.SYRIN SUBCUT SCH (09:20)
[2020-02-05] MEDS ORDERED: ESCITALOPRAM OXALATE 20 MG PO SCH (10:00)
[2020-02-05] MEDS: LINEZOLID 600 MG/300 ML RTUPB IV SCH ×3 (11:42→22:07)
--- NOTE | 2020-02-05 11:57 | PDOC CONSULTATION ---
Consultation Consult Date: 02/05/20 Attending physician:: BRANDON HO Provider Consulted: JAIDEN DE ANDA Consult reason:: Osteomyelitis left foot History of Present Illness Admission Date/PCP: 02/04/20 06:11 NATALIIA PAN DO History of Present Illness: JOVANNI RENTERIA is a 49 year old female Referred to the emergency department via ground rescue for further evaluation and treatment of left chronic foot infection. Patient is an alcoholic, COPD, diabetic, smoker, 2 and half months status post right BKA, with a several week history of left lateral foot wound, chronic, managed on outpatient basis at [facility], undergoing serial debridements and various topical agents and p.o. antibiotics. Patient seen in the emergency department 2 days ago drain ing seropurulent fluid from the open wound at the metatarsal, phalangeal junction laterally. X-ray of the foot showed chronic neuropathy, and osteomyelitis versus foreign body left lateral aspect of the foot. Nurses removed packing from wound cavity distant with foreign body seen on x-ray. Surgery consulted for management of wound. Of note patient continues to smoke, and of alcohol brought to her room by her . Her Covid status this admission is pending. Of note patient has a right BKA stump cnmt, but has not been fitted with a prosthesis. She is been essentially total lift to wheelchair. Past Medical History Past Medical History: Hypertension, diabetes mellitus, peripheral vascular disease, COPD, chronic smoking abuse, chronic alcohol abuse Cardiac Medical History: Reports: Hypertension Pulmonary Medical History: Reports: Asthma, Bronchitis, Chronic Obstructive Pulmonary Disease (COPD) Neurological Medical History: Denies: Seizures Endocrine Medical History: Reports: Diabetes Mellitus Type 1, Diabetes Mellitus Type 2 Musculoskeltal Medical History: Denies: Gout Psychiatric Medical History: Reports: Depression Past Surgical History Past Surgical History: Status post right below the knee amputation, closed, 11/16/2019, Dr. Hall, with stump cnmt; status post serial debridements distal lateral aspect left foot, [facility], Dr. Alcazar, product sales representative Past Surgical History: Reports: Section, Cholecystectomy, Gastric Bypass Surgery, Tonsillectomy Denies: Hysterectomy Social History Information Source: Patient Smoking Status: Current Every Day Smoker Electronic Cigarette use?: No Frequency of Alcohol Use: Heavy Hx Recreational Drug Use: No Drugs: None Hx Prescription Drug Abuse: No - Advance Directive Resuscitation Status: Full Code Family History Family History: None, CAD, Malignancy Parental Family History Reviewed: No Children Family History Reviewed: No Sibling(s) Family History Reviewed.: No Medication/Allergy Home Medications: Escitalopram Oxalate [Lexapro] 40 mg PO DAILY 01/10/18 Buspirone HCl [Buspar 10 mg Tablet] 7.5 mg PO BID 07/28/19 Ergocalciferol (Vitamin D2) [Drisdol 50,000 unit (1.25MG) Capsule] 50,000 unit PO FR@1000 07/28/19 Furosemide [Lasix 40 mg Tablet] 40 mg PO DAILY 10/11/19 Lurasidone HCl [Latuda] 20 mg PO DAILY 10/11/19 Trazodone HCl 150 mg PO QHS 10/11/19 Nystatin [Mycostatin Topical Powder 15 gm] 1 applic TP Q12 bottle 11/25/19 Collagenase Clostridium Hist. [Santyl Ointment 30 gm] 1 applic TOP DAILY 02/04/20 Metformin HCl [Glucophage 500 mg Tablet] 1,000 mg PO BID 02/04/20 Oxycodone HCl [Oxy-Ir 5 mg Tablet] 10 mg PO Q4HP PRN 02/04/20 Oxycodone Myristate [Xtampza ER] 13.5 mg PO Q12 02/04/20 Allergies/Adverse Reactions: fire ant Allergy (Severe, Verified 02/03/20 23:49) Anaphylaxis bee venom protein (honey bee) Allergy (Verified 02/03/20 23:49) nitrofurantoin macrocrystalline [From Macrobid] Allergy (Verified 02/03/20 23:49) Sulfa (Sulfonamide Antibiotics) Allergy (Verified 02/03/20 23:49) sulfamethoxazole [From Bactrim] Allergy (Verified 02/03/20 23:49) trimethoprim [From Bactrim] Allergy (Verified 02/03/20 23:49) vancomycin Adverse Reaction (Verified 02/03/20 23:49) Review of Systems Constitutional: PRESENT: as per HPI Eyes: ABSENT: visual disturbances Ears: ABSENT: hearing changes Cardiovascular: ABSENT: chest pain, dyspnea on exertion, edema, orthropnea, palp itations Respiratory: PRESENT: cough Musculoskeletal: PRESENT: other - Transfers using transfer board and total lift Neurological: PRESENT: other - Impaired sensation lower extremities; difficulty extending, flexing, and rotating left foot at the ankle Physical Exam Vital Signs: Temp Pulse Resp BP Pulse Ox 99.4 F 95 22 H 145/77 H 99 02/05/20 08:07 02/05/20 08:07 02/05/20 08:07 02/05/20 08:07 02/05/20 08:07 Intake & Output 02/04/20 02/05/20 02/06/20 06:59 06:59 06:59 Intake Total 50 1054 Output Total 600 Balance 50 454 Weight 85.2 kg 85.5 kg General appearance: PRESENT: other - Anxious Head exam: PRESENT: normocephalic Eye exam: PRESENT: EOMI Mouth exam: PRESENT: other - Or dentition Neck exam: PRESENT: full ROM Respiratory exam: PRESENT: rhonchi - Rhonchi bilaterally Cardiovascular exam: PRESENT: RRR Pulses: PRESENT: other - Strong dorsalis pedis pulse left foot GI/Abdominal exam: PRESENT: soft Rectal exam: PRESENT: deferred Gentrourinary exam: PRESENT: other - Furred Extremities exam: PRESENT: other - 1. Right BKA stump well-healed 2. Left foot examined. Diabetic arthropathy, with early Charcot changes; open wound lateral aspect distal foot at the metatarsophalangeal junction, with granulation tissue pink, no foul-smelling drainage. Transected metatarsal bone visible. No retained fb Results Laboratory Results: 02/05/20 05:34 02/05/20 05:34 02/05/20 02/05/20 05:34 05:34 WBC 5.0 RBC 2.72 L Hgb 8.9 L Hct 26.0 L MCV 96 MCH 32.5 MCHC 34.1 RDW 20.2 H Plt Count 129 L Sodium 134.9 L Potassium 3.4 L Chloride 107 Carbon Dioxide 22 Anion Gap 6 BUN 5 L Creatinine 0.49 L Est GFR ( Amer) > 60 Glucose 118 H Calcium 8.4 Magnesium 1.5 L Total Bilirubin 1.0 AST 42 H Alkaline Phosphatase 236 H Total Protein 6.5 Albumin 2.6 L Impressions: Foot X-Ray 02/03/20 23:52 IMPRESSION: Indeterminate findings associated with the distal fifth metatarsal as above. If the patient has not had surgery then the findings are consistent with a likely pathologic fracture of the distal fifth metatarsal neck related to changes of osteomyelitis with also changes concerning for osteomyelitis involving the base of the fifth proximal phalanx. If the patient has had surgery findings would still be worrisome for infection/osteomyelitis involving the distal fifth metatarsal and base of the fifth proximal phalanx. Please correlate with history and physical exam and if clinically indicated MRI could better evaluate. Assessment & Plan - Diagnosis (1) Osteomyelitis of left foot Qualifiers: Osteomyelitis type: unspecified type Qualified Code(s): M86.9 - Osteomyelitis, unspecified Is this a current diagnosis for this admission?: Yes Plan: Impression: Chronic left lateral foot wound post debridement of left fifth metatarsal head, open; chronic diabetic arthropathic changes left foot; strong dorsalis pedis pulse. Multiple comorbidities including obesity, smoking, alcohol abuse; status post right BKA. Patient would like to preserve her left foot, so I believe a attempt at salvage is reasonable Plan: 1. The open left foot wound needs operative attention. I have suggested a complete left fifth ray amputation, possibly fourth, depending upon the condition of adjacent tissue. Her large arterial vessel inflow is satisfactory for healing. Naturally, given her poor compliance, smoking and alcohol consumption minoo poorly for intermediate and long-term foot preservation. Furthermore the challenges to ambulation with a right BKA compound the poor prognosis. 2. We will obtain a rapid Covid test, keep her n.p.o. after midnight, and set her up for left foot debridement tomorrow, Thursday, February 05, for Dr. Hall. Patient understands additional portions of her foot may require removal. (2) Chronic narcotic dependence Is this a current diagnosis for this admission?: Yes (3) Smoker Is this a current diagnosis for this admission?: Yes (4) Alcoholic Is this a current diagnosis for this admission?: Yes (5) Diabetes mellitus Qualifiers: Diabetes mellitus type: type 2 Is this a current diagnosis for this admission?: Yes (6) Alcohol use disorder Is this a current diagnosis for this admission?: Yes (7) Status post below knee amputation of right lower extremity Is this a current diagnosis for this admission?: Yes - Time Time Spent: 50 to 70 Minutes Smoking Cessation Education: 3 to 10 minutes Medications reviewed and adjusted accordingly: Yes Anticipated discharge: Home with Homehealth
[2020-02-05] MEDS: ACYCLOVIR 800 MG TABLET PO SCH ×2 (13:22→22:07)
--- NOTE | 2020-02-05 13:56 | PDOC PROGRESS REPORT ---
Subjective Date:: 02/05/20 Subjective:: As per admitting physician JOVANNI RENTERIA is a 49 year old female diabetes mellitus, COPD, sleep apnea, hypertension, right below-knee amputation and alcohol abuse who presents with 2 weeks duration of a nonhealing wound on the left lateral side of her foot. Patient was given a dose of Ativan for anxiety 10 minutes prior to my encounter and she was very sleepy but arousable. She is unable to give detailed answer to most questions. She states that she was told to come to the emergency by her primary care doctor. She denies fever, chills, nausea, vomiting, diarrhea or any change in her bowel or urinary habits. She denies any history of trauma. 02/03/2020. Saw patient this morning comfortably sitting up in distress, complaining of left foot pain, being anxious and asking for home medication to be reconciled. Denies any fever, chills, nausea, vomiting. Patient is scheduled to have an I&D of his left lower extremity tomorrow by surgery. Reason For Visit: OSTEOMYELITIS Physical Exam Vital Signs: Temp Pulse Resp BP Pulse Ox 99.4 F 95 22 H 145/77 H 99 02/05/20 10:00 02/05/20 08:07 02/05/20 08:07 02/05/20 08:07 02/05/20 08:07 Intake & Output 02/04/20 02/05/20 02/06/20 06:59 06:59 06:59 Intake Total 50 1054 Output Total 600 Balance 50 454 Weight 85.2 kg 85.5 kg General appearance: PRESENT: no acute distress, well-developed, well-nourished Head exam: PRESENT: atraumatic, normocephalic Neck exam: ABSENT: carotid bruit, JVD, lymphadenopathy, thyromegaly Respiratory exam: PRESENT: clear to auscultation kristina. ABSENT: rales, rhonchi, wheezes Cardiovascular exam: PRESENT: RRR. ABSENT: diastolic murmur, rubs, systolic murmur GI/Abdominal exam: PRESENT: normal bowel sounds, soft. ABSENT: distended, guarding, mass, organolmegaly, rebound, tenderness Gentrourinary exam: PRESENT: other - Denuded genital ulcers left labia majora likely herpes genitalis. Extremities exam: PRESENT: full ROM, other - Right BKA. Left foot lateral aspect fifth metatarsal deep wound with cutaneous tissue exposed, no active discharge.. ABSENT: calf tenderness, clubbing, pedal edema Neurological exam: PRESENT: alert, awake, oriented to person, oriented to place, oriented to time, oriented to situation, CN II-XII grossly intact. ABSENT: motor sensory deficit Results Laboratory Results: 02/05/20 05:34 02/05/20 05:34 02/05/20 02/05/20 05:34 05:34 WBC 5.0 RBC 2.72 L Hgb 8.9 L Hct 26.0 L MCV 96 MCH 32.5 MCHC 34.1 RDW 20.2 H Plt Count 129 L Sodium 134.9 L Potassium 3.4 L Chloride 107 Carbon Dioxide 22 Anion Gap 6 BUN 5 L Creatinine 0.49 L Est GFR ( Amer) > 60 Glucose 118 H Calcium 8.4 Magnesium 1.5 L Total Bilirubin 1.0 AST 42 H Alkaline Phosphatase 236 H Total Protein 6.5 Albumin 2.6 L Impressions: Foot X-Ray 02/03/20 23:52 IMPRESSION: Indeterminate findings associated with the distal fifth metatarsal as above. If the patient has not had surgery then the findings are consistent with a likely pathologic fracture of the distal fifth metatarsal neck related to changes of osteomyelitis with also changes concerning for osteomyelitis involving the base of the fifth proximal phalanx. If the patient has had surgery findings would still be worrisome for infection/osteomyelitis involving the distal fifth metatarsal and base of the fifth proximal phalanx. Please correlate with history and physical exam and if clinically indicated MRI could better evaluate. Assessment and Plan - Diagnosis (1) Osteomyelitis of left foot Qualifiers: Osteomyelitis type: unspecified type Qualified Code(s): M86.9 - Osteomyelitis, unspecified Is this a current diagnosis for this admission?: Yes Plan: Patient presented with a nonhealing wound Has no systemic signs of toxicity X-ray of the foot showed findings consistent with pathologic fracture of the fifth metatarsal with signs of osteomyelitis ESR and C-reactive protein elevated Day 3 IV antibiotics. Day 3 IV linezolid. Day 3 IV cefepime. Reconsulted. Possible I&D tomorrow. (2) Alcohol use disorder Is this a current diagnosis for this admission?: Yes Plan: Complaining of mild anxiety, denies any auditory or visual hallucinations. Continue DT precautions. (3) COPD (chronic obstructive pulmonary disease) Is this a current diagnosis for this admission?: Yes Plan: Stable and not in acute exacerbation Continue DuoNeb as needed (4) Diabetes mellitus Qualifiers: Diabetes mellitus type: type 2 Diabetes mellitus complication status: with circulatory complication Diabetes mellitus complication detail: with peripheral angiopathy without gangrene Is this a current diagnosis for this admission?: Yes Plan: History of uncontrolled diabetes. Status post right BKA and left diabetic foot. Diabetic diet, sliding scale insulin, basal insulin,, hypoglycemia protocol. Oral antidiabetic. Outpatient PCP follow-up. (5) HTN (hypertension) Is this a current diagnosis for this admission?: Yes Plan: Currently BP within acceptable limits Continue home medications (6) JENNIFER (obstructive sleep apnea) Is this a current diagnosis for this admission?: Yes Plan: Continue CPAP use nightly (7) Opioid dependence Qualifiers: Complication of substance-induced condition: uncomplicated Is this a current diagnosis for this admission?: Yes Plan: History of opiate dependency for chronic musculoskeletal pain. Resume home meds. Monitor for respiratory depression. Outpatient PCP and pain management follow-up. (8) Herpes genitalis Qualifiers: Herpes simplex infection site: other site of urogenital tract Qualified Code(s): A60.09 - Herpesviral infection of other urogenital tract Is this a current diagnosis for this admission?: Yes Plan: History of recurrent herpes genitalis. Patient is stating that about a week ago she had grouped vesicles on her left labia majora which is currently been denuded. Complaining of burning pain and itchiness. Started on acyclovir. 800 mg 3 times daily for 2 days. Patient PCP follow-up. - Time Time Spent with patient: 35 or more minutes Medications reviewed and adjusted accordingly: Yes Anticipated Discharge Disposition: Home with Home Health Anticipated Discharge Timeframe: within 72 hours
[2020-02-05] MEDS ORDERED: POTASSIUM CHLORIDE 10 MEQ TABLET.ER PO ONE (14:15)
[2020-02-05] MEDS: MAGNESIUM OXIDE 400 MG TABLET PO SCH (15:56)
[2020-02-05] MEDS: METFORMIN HCL 500 MG TABLET PO SCH (17:12)
[2020-02-05] MEDS: BUSPIRONE HCL 10 MG TABLET PO SCH (17:12)
[2020-02-05] MEDS: CEFEPIME HCL 2 GM in DEXTROSE 5%-WATER 50 ML IV SCH (17:13)
[2020-02-05] MEDS ORDERED: CEFEPIME 2 GM/D5W RTU 2 GM/50 ML RTUPB IV SCH (18:00)
--- NOTE | 2020-02-05 18:56 | EKG REPORT ---
SEVERITY:- BORDERLINE ECG - SINUS RHYTHM BORDERLINE PROLONGED QT INTERVAL : Confirmed by: Tresa Mayer MD 05-Feb-2020 18:56:28
[2020-02-05] MEDS ORDERED: OXYCODONE MYRISTATE 13.5 MG PO SCH (22:00)
[2020-02-05] MEDS ORDERED: TRAZODONE HCL 150 MG PO SCH (22:00)
[2020-02-05] MEDS: NYSTATIN TOPICAL POWDER 15 GM TP SCH (22:04)
[2020-02-05] MEDS: TRAZODONE HCL 50 MG TABLET PO SCH (22:07)
[2020-02-06] MEDS: LORAZEPAM INJ 2 MG/1 ML VIAL IV PRN ×4 (04:20→22:04)
[2020-02-06] MEDS: CEFEPIME HCL 2 GM in DEXTROSE 5%-WATER 50 ML IV SCH ×2 (05:03→17:21)
[2020-02-06] MEDS: ACYCLOVIR 800 MG TABLET PO SCH ×3 (05:03→22:02)
[2020-02-06] MEDS: OXYCODONE HCL IR 5 MG TABLET PO PRN ×4 (05:03→22:02)
[2020-02-06] MEDS: PANTOPRAZOLE SODIUM 40 MG TABLET.DR PO SCH (05:03)
[2020-02-06 06:37] LABS: HEMATOCRIT 25.7 % (36.0-47.0); HEMOGLOBIN 8.7 g/dL (12.0-15.5); MEAN CORPUSCULAR HEMOGLOBIN 32.5 pg (27.0-33.4); MEAN CORPUSCULAR HGB CONC 33.9 g/dL (32.0-36.0); MEAN CORPUSCULAR VOLUME 96 fl (80-97); PLATELET COUNT 117 10^3/uL (150-450); PROTHROMBIN TIME 16.4 SEC (11.4-15.4); RED BLOOD COUNT 2.68 10^6/uL (3.72-5.28); RED CELL DISTRIBUTION WIDTH 19.6 % (11.5-14.0); WHITE BLOOD COUNT 4.7 10^3/uL (4.0-10.5)
[2020-02-06] MEDS ORDERED: PROPOFOL INJ 200 MG/20 ML VIAL IV ONE (06:48)
[2020-02-06] MEDS ORDERED: MIDAZOLAM 2 MG/2 ML INJ ONE (06:48)
[2020-02-06] MEDS ORDERED: ONDANSETRON HCL INJ/PF 4 MG/2 ML SDV ONE (06:48)
[2020-02-06] MEDS ORDERED: FENTANYL CITRATE INJ/PF 100 MCG/2 ML AMPUL ONE (06:48)
[2020-02-06] MEDS ORDERED: EPHEDRINE SULFATE INJ 50 MG/1 ML AMPULE ONE (06:48)
[2020-02-06] MEDS ORDERED: LIDOCAINE 2% INJ (20 MG/ML) 20 ML MDV ONE (06:50)
[2020-02-06] MEDS ORDERED: BUPIVACAINE HCL 0.25 % INJ/PF (2.5 MG/1 ML) 30 ML VIAL ONE (07:16)
[2020-02-06 07:28] LABS: ALBUMIN 2.8 g/dL (3.5-5.0); ALKALINE PHOSPHATASE 216 U/L (38-126); ANION GAP 5 (5-19); ASPARTATE AMINO TRANSFERASE 39 U/L (14-36); BILIRUBIN,DIRECT 0.3 mg/dL (0.0-0.4); BILIRUBIN,TOTAL 1.1 mg/dL (0.2-1.3); BLOOD UREA NITROGEN 5 mg/dL (7-20); CALCIUM 8.3 mg/dL (8.4-10.2); CARBON DIOXIDE 26 mmol/L (22-30); CHLORIDE 101 mmol/L (98-107); GLUCOSE 113 mg/dL (75-110); POTASSIUM 3.3 mmol/L (3.6-5.0); TOTAL PROTEIN 6.4 g/dL (6.3-8.2)
[2020-02-06] MEDS ORDERED: LIDOCAINE 1% INJ-PF (10 MG/ML) 30 ML SDV ONE (07:41)
[2020-02-06] MEDS ORDERED: PROMETHAZINE HCL INJ 25 MG/1 ML VIAL IV PRN ×2 (08:39)
[2020-02-06] MEDS ORDERED: MORPHINE SULFATE 10 MG/ML INJ IV PRN (08:39)
[2020-02-06] MEDS ORDERED: DIPHENHYDRAMINE HCL 50 MG/ML VIAL IV PRN (08:39)
[2020-02-06] MEDS ORDERED: FENTANYL CITRATE INJ/PF 100 MCG/2 ML AMPUL IV PRN ×3 (08:39)
--- NOTE | 2020-02-06 09:26 | PDOC PROGRESS REPORT ---
Subjective Date:: 02/06/20 Subjective:: 49-year-old diabetic female with a large ulcerated wound to the left lateral catrina t. There is exposed bone. She reports increasing pain and redness. Reason For Visit: OSTEOMYELITIS Physical Exam Vital Signs: Temp Pulse Resp BP Pulse Ox 97.8 F 96 16 113/71 93 02/06/20 08:00 02/06/20 08:00 02/06/20 08:00 02/06/20 07:17 02/06/20 08:00 Intake & Output 02/05/20 02/06/20 02/07/20 06:59 06:59 06:59 Intake Total 1054 1220 Output Total 600 Balance 454 1220 Weight 85.5 kg 85.5 kg General appearance: PRESENT: no acute distress, cooperative, obese Head exam: PRESENT: atraumatic, normocephalic Eye exam: PRESENT: EOMI, PERRLA. ABSENT: scleral icterus Mouth exam: PRESENT: moist, neck supple Neck exam: ABSENT: meningismus, tenderness, thyromegaly, tracheal deviation Respiratory exam: PRESENT: unlabored. ABSENT: tachypnea, wheezes Cardiovascular exam: ABSENT: tachycardia Pulses: PRESENT: other - Good pedal pulses on the left Vascular exam: PRESENT: normal capillary refill GI/Abdominal exam: PRESENT: soft. ABSENT: distended, tenderness Rectal exam: PRESENT: deferred Musculoskeletal exam: PRESENT: other - Right BKA stump appears to be healing well. Left foot with large ulcer to the lateral portion. There is exposed metatarsal. There is excessive mobility of the left fifth toe, consistent with fracture. There is mild erythema, and tenderness present. Neurological exam: PRESENT: alert, awake, oriented to person, oriented to place, oriented to time, oriented to situation, CN II-XII grossly intact Psychiatric exam: ABSENT: agitated, anxious, depressed Focused psych exam: ABSENT: delusional Skin exam: PRESENT: erythema - See musculoskeletal exam. ABSENT: cyanosis, jaundice Results Laboratory Results: 02/06/20 05:35 02/06/20 05:35 02/06/20 02/06/20 05:35 05:35 WBC 4.7 RBC 2.68 L Hgb 8.7 L Hct 25.7 L MCV 96 MCH 32.5 MCHC 33.9 RDW 19.6 H Plt Count 117 L Sodium 132.4 L Potassium 3.3 L Chloride 101 Carbon Dioxide 26 Anion Gap 5 BUN 5 L Creatinine 0.68 Est GFR ( Amer) > 60 Glucose 113 H Calcium 8.3 L Magnesium 1.2 L* Total Bilirubin 1.1 AST 39 H Alkaline Phosphatase 216 H Total Protein 6.4 Albumin 2.8 L Impressions: Foot X-Ray 02/03/20 23:52 IMPRESSION: Indeterminate findings associated with the distal fifth metatarsal as above. If the patient has not had surgery then the findings are consistent with a likely pathologic fracture of the distal fifth metatarsal neck related to changes of osteomyelitis with also changes concerning for osteomyelitis involving the base of the fifth proximal phalanx. If the patient has had surgery findings would still be worrisome for infection/osteomyelitis involving the distal fifth metatarsal and base of the fifth proximal phalanx. Please correlate with history and physical exam and if clinically indicated MRI could better evaluate. Assessment & Plan - Diagnosis (1) Diabetes mellitus Qualifiers: Diabetes mellitus type: type 2 Diabetes mellitus complication status: with circulatory complication Diabetes mellitus complication detail: with peripheral angiopathy without gangrene (2) Osteomyelitis of left foot Qualifiers: Osteomyelitis type: unspecified type Qualified Code(s): M86.9 - Osteomyelitis, unspecified - Time Anticipated Discharge Disposition: Home with Home Health Anticipated Discharge Timeframe: within 48 hours - Plan Summary Plan Summary: 49-year-old diabetic female with a large ulcer to the left lateral foot. There is exposed bone, and evidence of osteomyelitis on x-ray (with a fracture present). I recommended amputation of the fifth toe and metatarsal. The patient has agreed to this. Risk/benefits discussed, informed consent obtained, and all questions answered.
--- NOTE | 2020-02-06 09:31 | Operative Report ---
Nonrecallable Operative Report DATE OF SURGERY: 02/06/20 PREOPERATIVE DIAGNOSIS: Osteomyelitis of the left fifth metatarsal with fracture POSTOPERATIVE DIAGNOSIS: Same as above OPERATION: Amputation of the left fifth toe and metatarsal SURGEON: RICCARDO MENDOZA ANESTHESIA: GA TISSUE REMOVED OR ALTERED: Left fifth toe and metatarsal COMPLICATIONS: None apparent ESTIMATED BLOOD LOSS: 30 cc PROCEDURE: Drains/implants: 4 x 4 gauze, soaked with Betadine. Procedure in detail: After informed consent was obtained, the patient was brought into the operating room and laid in the supine position. The area of the left foot was prepped and draped in a normal sterile fashion. An incision was created around the left fifth toe and lateral foot ulcer. Dissection was carried down to the metatarsal. The incision was carried proximally, over top of the metatarsal on the lateral aspect of the foot. The toe and metatarsal (as well as the large ulcerated area) were excised completely. The metatarsal was disarticulated away from the bones of the foot. Hemostasis was achieved using electrocautery and suture ligation. Subcutaneous tissues were closed using 2-0 Vicryl suture in simple interrupted fashion. The proximal and distal portions of the wound were closed using 2-0 nylon suture. The midportion of the wound was left open, and packed with Betadine soaked 4 x 4's. A dressing was placed, and the procedure was concluded. All sponge, instrument, needle counts were correct x2. Condition: Stable.
[2020-02-06] MEDS ORDERED: IPRATROPIUM/ALBUTEROL 0.5-2.5 MG/3 ML AMPUL NEB ONE ×2 (09:37→09:50)
[2020-02-06] MEDS ORDERED: OXYCODONE HCL IR 5 MG TABLET ONE (09:38)
[2020-02-06] MEDS: INSULIN REG, HUMAN 100 UNIT/ML 3 ML VIAL (PYX) SUBCUT SCH ×4 (10:47→22:04)
[2020-02-06] MEDS: MAGNESIUM SULFATE/D5W 1 GM/100 ML RTUPB IV SCH ×2 (10:54→11:59)
[2020-02-06] MEDS: LINEZOLID 600 MG/300 ML RTUPB IV SCH ×2 (11:01→22:04)
[2020-02-06] MEDS: METFORMIN HCL 500 MG TABLET PO SCH ×3 (11:11→17:22)
[2020-02-06] MEDS: ENOXAPARIN SODIUM INJ 40 MG/0.4 ML DISP.SYRIN SUBCUT SCH (11:11)
[2020-02-06] MEDS: NYSTATIN TOPICAL POWDER 15 GM TP SCH ×2 (11:12→22:05)
[2020-02-06] MEDS: FUROSEMIDE 40 MG TABLET PO SCH (12:08)
[2020-02-06] MEDS: ESCITALOPRAM OXALATE 10 MG TABLET PO SCH (12:08)
[2020-02-06] MEDS: BUSPIRONE HCL 10 MG TABLET PO SCH ×2 (12:08→17:22)
[2020-02-06] MEDS: MAGNESIUM OXIDE 400 MG TABLET PO SCH (12:08)
[2020-02-06] MEDS: LURASIDONE HCL 40 MG TABLET PO SCH (12:09)
--- NOTE | 2020-02-06 12:42 | PDOC PROGRESS REPORT ---
Subjective Date:: 02/06/20 Subjective:: As per admitting physician JOVANNI RENTERIA is a 49 year old female diabetes mellitus, COPD, sleep apnea, hypertension, right below-knee amputation and alcohol abuse who presents with 2 weeks duration of a nonhealing wound on the left lateral side of her foot. Patient was given a dose of Ativan for anxiety 10 minutes prior to my encounter and she was very sleepy but arousable. She is unable to give detailed answer to most questions. She states that she was told to come to the emergency by her primary care doctor. She denies fever, chills, nausea, vomiting, diarrhea or any change in her bowel or urinary habits. She denies any history of trauma. 02/03/2020. Saw patient this morning comfortably sitting up in distress, complaining of left foot pain, being anxious and asking for home medication to be reconciled. Denies any fever, chills, nausea, vomiting. Patient is scheduled to have an I&D of his left lower extremity tomorrow by surgery. 02/06/2020. No acute events overnight. Saw patient just after coming back from the OR, still lethargic and sleepy likely due to anesthesia, not appear to be in any apparent distress, easily arousable and cooperative with physical examination, asking when she can eat. Reason For Visit: OSTEOMYELITIS Physical Exam Vital Signs: Temp Pulse Resp BP Pulse Ox 97.9 F 87 18 99/57 L 95 02/06/20 11:45 02/06/20 11:45 02/06/20 11:45 02/06/20 11:45 02/06/20 11:45 Intake & Output 02/05/20 02/06/20 02/07/20 06:59 06:59 06:59 Intake Total 1054 1220 800 Output Total 600 50 Balance 454 1220 750 Weight 85.5 kg 85.5 kg General appearance: PRESENT: no acute distress, well-developed, well-nourished, other - Somnolent but easily arousable Head exam: PRESENT: atraumatic, normocephalic Respiratory exam: PRESENT: clear to auscultation kristina. ABSENT: rales, rhonchi, wheezes Cardiovascular exam: PRESENT: RRR. ABSENT: diastolic murmur, rubs, systolic murmur GI/Abdominal exam: PRESENT: normal bowel sounds, soft. ABSENT: distended, guarding, mass, organolmegaly, rebound, tenderness Neurological exam: PRESENT: CN II-XII grossly intact, motor sensory deficit, other - Somnolent but easily arousable Results Laboratory Results: 02/06/20 05:35 02/06/20 05:35 02/06/20 02/06/20 05:35 05:35 WBC 4.7 RBC 2.68 L Hgb 8.7 L Hct 25.7 L MCV 96 MCH 32.5 MCHC 33.9 RDW 19.6 H Plt Count 117 L Sodium 132.4 L Potassium 3.3 L Chloride 101 Carbon Dioxide 26 Anion Gap 5 BUN 5 L Creatinine 0.68 Est GFR ( Amer) > 60 Glucose 113 H Calcium 8.3 L Magnesium 1.2 L* Total Bilirubin 1.1 AST 39 H Alkaline Phosphatase 216 H Total Protein 6.4 Albumin 2.8 L Impressions: Foot X-Ray 02/03/20 23:52 IMPRESSION: Indeterminate findings associated with the distal fifth metatarsal as above. If the patient has not had surgery then the findings are consistent with a likely pathologic fracture of the distal fifth metatarsal neck related to changes of osteomyelitis with also changes concerning for osteomyelitis involving the base of the fifth proximal phalanx. If the patient has had surgery findings would still be worrisome for infection/osteomyelitis involving the distal fifth metatarsal and base of the fifth proximal phalanx. Please correlate with history and physical exam and if clinically indicated MRI could better evaluate. Assessment and Plan - Diagnosis (1) Osteomyelitis of left foot Qualifiers: Osteomyelitis type: unspecified type Qualified Code(s): M86.9 - Osteomyelitis, unspecified Is this a current diagnosis for this admission?: Yes Plan: Day 1 status post left fifth metatarsal amputation. Patient presented with a nonhealing wound Has no systemic signs of toxicity X-ray of the foot showed findings consistent with pathologic fracture of the fifth metatarsal with signs of osteomyelitis ESR and C-reactive protein elevated Day 4 IV antibiotics. Day 4 IV linezolid. Day 4 IV cefepime. Surgery consulted. Recommendations noted. (2) Alcohol use disorder Is this a current diagnosis for this admission?: Yes Plan: Complaining of mild anxiety, denies any auditory or visual hallucinations. Continue DT precautions. (3) COPD (chronic obstructive pulmonary disease) Is this a current diagnosis for this admission?: Yes Plan: Stable and not in acute exacerbation Continue DuoNeb as needed (4) Diabetes mellitus Qualifiers: Diabetes mellitus type: type 2 Diabetes mellitus complication status: with circulatory complication Diabetes mellitus complication detail: with peripheral angiopathy without gangrene Is this a current diagnosis for this admission?: Yes Plan: History of uncontrolled diabetes. Status post right BKA and left diabetic foot. Diabetic diet, sliding scale insulin, basal insulin,, hypoglycemia protocol. Oral antidiabetic. Outpatient PCP follow-up. (5) HTN (hypertension) Is this a current diagnosis for this admission?: Yes Plan: Currently BP within acceptable limits Continue home medications (6) JENNIFER (obstructive sleep apnea) Is this a current diagnosis for this admission?: Yes Plan: Continue CPAP use nightly (7) Opioid dependence Qualifiers: Complication of substance-induced condition: uncomplicated Is this a current diagnosis for this admission?: Yes Plan: History of opiate dependency for chronic musculoskeletal pain. Resume home meds. Monitor for respiratory depression. Outpatient PCP and pain management follow-up. (8) Herpes genitalis Qualifiers: Herpes simplex infection site: other site of urogenital tract Qualified Code(s): A60.09 - Herpesviral infection of other urogenital tract Is this a current diagnosis for this admission?: Yes Plan: History of recurrent herpes genitalis. Patient is stating that about a week ago she had grouped vesicles on her left labia majora which is currently been denuded. Complaining of burning pain and itchiness. Started on acyclovir. 800 mg 3 times daily for 2 days. Patient PCP follow-up. - Time Time Spent with patient: 25-34 minutes Anticipated Discharge Disposition: Home with Home Health Anticipated Discharge Timeframe: within 72 hours
--- NOTE | 2020-02-06 21:54 | CDI QUERY ---
CDI Query CDI Review: We are seeking further clarification of documentation to reflect the severity of illness of your patient. Per Progress Notes: Osteomyelitis of left foot Qualifiers: Osteomyelitis type: unspecified type Qualified Code(s): M86.9 - Osteomyelitis, unspecified Is this a current diagnosis for this admission?: Yes Plan: Day 1 status post left fifth metatarsal amputation. Patient presented with a nonhealing wound Has no systemic signs of toxicity X-ray of the foot showed findings consistent with pathologic fracture of the fifth metatarsal with signs of osteomyelitis ESR and C-reactive protein elevated Diabetes mellitus Qualifiers: Diabetes mellitus type: type 2 Diabetes mellitus complication status: with circulatory complication Diabetes mellitus complication detail: with peripheral angiopathy without gangrene History of uncontrolled diabetes. Status post right BKA and left diabetic foot. Based on your medical judgement, can you further clarify in the Progress Notes and carry the documentation through to the Discharge Summary: Osteomyelitis 2/2 to Diabetes Osteomyelitis NOT 2/2 to Diabetes Unable to determine Other Thank you for your consideration. IBRAHIMA Hu RN Clinical [employer] Physician Advisor [email or web address]
[2020-02-06] MEDS: TRAZODONE HCL 50 MG TABLET PO SCH (22:03)
[2020-02-07] MEDS: LORAZEPAM INJ 2 MG/1 ML VIAL IV PRN ×5 (03:32→22:04)
[2020-02-07] MEDS: OXYCODONE HCL IR 5 MG TABLET PO PRN ×5 (03:32→18:14)
[2020-02-07] MEDS: CEFEPIME HCL 2 GM in DEXTROSE 5%-WATER 50 ML IV SCH ×2 (05:30→17:15)
[2020-02-07] MEDS: ACYCLOVIR 800 MG TABLET PO SCH (05:30)
[2020-02-07] MEDS: PANTOPRAZOLE SODIUM 40 MG TABLET.DR PO SCH (05:30)
[2020-02-07 06:28] LABS: HEMATOCRIT 23.8 % (36.0-47.0); MEAN CORPUSCULAR HEMOGLOBIN 32.3 pg (27.0-33.4); MEAN CORPUSCULAR HGB CONC 33.6 g/dL (32.0-36.0); MEAN CORPUSCULAR VOLUME 96 fl (80-97); PLATELET COUNT 118 10^3/uL (150-450); RED BLOOD COUNT 2.48 10^6/uL (3.72-5.28); RED CELL DISTRIBUTION WIDTH 19.2 % (11.5-14.0); WHITE BLOOD COUNT 5.8 10^3/uL (4.0-10.5)
[2020-02-07 06:57] LABS: ANION GAP 6 (5-19); BLOOD UREA NITROGEN 6 mg/dL (7-20); CALCIUM 8.5 mg/dL (8.4-10.2); CARBON DIOXIDE 26 mmol/L (22-30); CHLORIDE 101 mmol/L (98-107); GLUCOSE 102 mg/dL (75-110)
[2020-02-07] MEDS: INSULIN REG, HUMAN 100 UNIT/ML 3 ML VIAL (PYX) SUBCUT SCH ×4 (07:52→22:04)
[2020-02-07] MEDS: LURASIDONE HCL 40 MG TABLET PO SCH (07:57)
[2020-02-07] MEDS ORDERED: POTASSIUM CHLORIDE 10 MEQ TABLET.ER PO ONE (08:45)
[2020-02-07] MEDS: BUSPIRONE HCL 10 MG TABLET PO SCH ×2 (09:27→17:14)
[2020-02-07] MEDS: METFORMIN HCL 500 MG TABLET PO SCH ×2 (09:27→17:15)
[2020-02-07] MEDS: MAGNESIUM OXIDE 400 MG TABLET PO SCH (09:28)
[2020-02-07] MEDS: ESCITALOPRAM OXALATE 10 MG TABLET PO SCH (09:29)
[2020-02-07] MEDS: FUROSEMIDE 40 MG TABLET PO SCH (09:30)
[2020-02-07] MEDS: ENOXAPARIN SODIUM INJ 40 MG/0.4 ML DISP.SYRIN SUBCUT SCH (09:30)
[2020-02-07] MEDS: NYSTATIN TOPICAL POWDER 15 GM TP SCH ×2 (09:31→22:06)
[2020-02-07] MEDS: LINEZOLID 600 MG/300 ML RTUPB IV SCH ×2 (10:09→22:04)
--- NOTE | 2020-02-07 10:49 | PDOC PROGRESS REPORT ---
Subjective Date:: 02/07/20 Reason For Visit: OSTEOMYELITIS Patient having some pain in the left foot. Physical Exam Vital Signs: Temp Pulse Resp BP Pulse Ox 99.5 F 89 17 95/73 L 93 02/07/20 08:30 02/07/20 07:51 02/07/20 07:51 02/07/20 07:51 02/07/20 07:51 Intake & Output 02/06/20 02/07/20 02/08/20 06:59 06:59 06:59 Intake Total 1220 2668 Output Total 50 Balance 1220 2618 Weight 85.5 kg 85.5 kg General appearance: PRESENT: mild distress Musculoskeletal exam: PRESENT: other - Dressing removed; sutures above and below open section intact. Open area clean, no foul-smelling drainage. Edema controlled. Foot warm. Flaps viable. Results Laboratory Results: 02/07/20 05:46 02/07/20 05:46 02/07/20 02/07/20 05:46 05:46 WBC 5.8 RBC 2.48 L Hgb 8.0 L Hct 23.8 L MCV 96 MCH 32.3 MCHC 33.6 RDW 19.2 H Plt Count 118 L Sodium 133.3 L Potassium 3.0 L* Chloride 101 Carbon Dioxide 26 Anion Gap 6 BUN 6 L Creatinine 0.66 Est GFR ( Amer) > 60 Glucose 102 Calcium 8.5 Impressions: Foot X-Ray 02/03/20 23:52 IMPRESSION: Indeterminate findings associated with the distal fifth metatarsal as above. If the patient has not had surgery then the findings are consistent with a likely pathologic fracture of the distal fifth metatarsal neck related to changes of osteomyelitis with also changes concerning for osteomyelitis involving the base of the fifth proximal phalanx. If the patient has had surgery findings would still be worrisome for infection/osteomyelitis involving the distal fifth metatarsal and base of the fifth proximal phalanx. Please correlate with history and physical exam and if clinically indicated MRI could better evaluate. Assessment & Plan - Diagnosis (1) Osteomyelitis of left foot Qualifiers: Osteomyelitis type: unspecified type Qualified Code(s): M86.9 - Osteomyelitis, unspecified Is this a current diagnosis for this admission?: Yes Plan: Impression: Status post left fifth ray amputation with modified semiopen closure doing well, with excellent early postoperative results. Recommendations: 1. Wound washed and redressed 2. Continue intravenous antibiotics, and nonweightbearing. 3. We will reexamine foot in 24 hours. (2) Chronic narcotic dependence Is this a current diagnosis for this admission?: Yes (3) Smoker Is this a current diagnosis for this admission?: Yes (4) Alcoholic Is this a current diagnosis for this admission?: Yes (5) Diabetes mellitus Qualifiers: Diabetes mellitus type: type 2 Diabetes mellitus complication status: with circulatory complication Diabetes mellitus complication detail: with peripheral angiopathy without gangrene Is this a current diagnosis for this admission?: Yes (6) Alcohol use disorder Is this a current diagnosis for this admission?: Yes (7) Status post below knee amputation of right lower extremity Is this a current diagnosis for this admission?: Yes - Time Anticipated Discharge Disposition: Home with Home Health Anticipated Discharge Timeframe: within 72 hours Time Spent: 30 to 50 Minutes Critical Time spent with patient: Less than 15 minutes Smoking Cessation Education: 3 to 10 minutes Medications reviewed and adjusted accordingly: Yes
--- NOTE | 2020-02-07 14:48 | PDOC PROGRESS REPORT ---
Subjective Date:: 02/07/20 Subjective:: As per admitting physician JOVANNI RENTERIA is a 49 year old female diabetes mellitus, COPD, sleep apnea, hypertension, right below-knee amputation and alcohol abuse who presents with 2 weeks duration of a nonhealing wound on the left lateral side of her foot. Patient was given a dose of Ativan for anxiety 10 minutes prior to my encounter and she was very sleepy but arousable. She is unable to give detailed answer to most questions. She states that she was told to come to the emergency by her primary care doctor. She denies fever, chills, nausea, vomiting, diarrhea or any change in her bowel or urinary habits. She denies any history of trauma. 02/03/2020. Saw patient this morning comfortably sitting up in distress, complaining of left foot pain, being anxious and asking for home medication to be reconciled. Denies any fever, chills, nausea, vomiting. Patient is scheduled to have an I&D of his left lower extremity tomorrow by surgery. 02/06/2020. No acute events overnight. Saw patient just after coming back from the OR, still lethargic and sleepy likely due to anesthesia, not appear to be in any apparent distress, easily arousable and cooperative with physical examination, asking when she can eat. 02/07/2020. No acute events overnight. Saw patient this morning in no apparent distress, complaining of left foot and back pain. Denies any fever, chills, chest pain, shortness of breath. Surgery has been following. Possible discharge in 1 to 2 days. Reason For Visit: OSTEOMYELITIS Physical Exam Vital Signs: Temp Pulse Resp BP Pulse Ox 98.4 F 85 14 115/63 94 02/07/20 11:40 02/07/20 12:54 02/07/20 12:54 02/07/20 11:40 02/07/20 12:54 Intake & Output 02/06/20 02/07/20 02/08/20 06:59 06:59 06:59 Intake Total 1220 8548 236 Output Total 50 Balance 1220 3405 236 Weight 85.5 kg 85.5 kg General appearance: PRESENT: no acute distress, well-developed, well-nourished Head exam: PRESENT: atraumatic, normocephalic Neck exam: ABSENT: carotid bruit, JVD, lymphadenopathy, thyromegaly Respiratory exam: PRESENT: clear to auscultation kristina. ABSENT: rales, rhonchi, wheezes Cardiovascular exam: PRESENT: RRR. ABSENT: diastolic murmur, rubs, systolic murmur GI/Abdominal exam: PRESENT: normal bowel sounds, soft. ABSENT: distended, guarding, mass, organolmegaly, rebound, tenderness Extremities exam: PRESENT: full ROM, other - Right BKA. Left foot fifth metatarsal amputation, dressing in place.. ABSENT: calf tenderness, clubbing, pedal edema Neurological exam: PRESENT: alert, awake, oriented to person, oriented to place, oriented to time, oriented to situation, CN II-XII grossly intact. ABSENT: motor sensory deficit Results Laboratory Results: 02/07/20 05:46 02/07/20 05:46 02/07/20 02/07/20 02/07/20 05:46 05:46 11:44 WBC 5.8 RBC 2.48 L Hgb 8.0 L Hct 23.8 L MCV 96 MCH 32.3 MCHC 33.6 RDW 19.2 H Plt Count 118 L Sodium 133.3 L Potassium 3.0 L* Chloride 101 Carbon Dioxide 26 Anion Gap 6 BUN 6 L Creatinine 0.66 Est GFR ( Amer) > 60 Glucose 102 Calcium 8.5 Magnesium 1.6 Impressions: Foot X-Ray 02/03/20 23:52 IMPRESSION: Indeterminate findings associated with the distal fifth metatarsal as above. If the patient has not had surgery then the findings are consistent with a likely pathologic fracture of the distal fifth metatarsal neck related to changes of osteomyelitis with also changes concerning for osteomyelitis involving the base of the fifth proximal phalanx. If the patient has had surgery findings would still be worrisome for infection/osteomyelitis involving the distal fifth metatarsal and base of the fifth proximal phalanx. Please correlate with history and physical exam and if clinically indicated MRI could better evaluate. Assessment and Plan - Diagnosis (1) Osteomyelitis of left foot Qualifiers: Osteomyelitis type: chronic, with draining sinus Qualified Code(s): M86.472 - Chronic osteomyelitis with draining sinus, left ankle and foot Is this a current diagnosis for this admission?: Yes Plan: Day 2 status post left fifth metatarsal amputation. Patient presented with a nonhealing wound Osteomyelitis likely secondary to diabetes. Has no systemic signs of toxicity X-ray of the foot showed findings consistent with pathologic fracture of the fifth metatarsal with signs of osteomyelitis ESR and C-reactive protein elevated Day 5 IV antibiotics. Day 5 IV linezolid. Day 5 IV cefepime. Surgery consulted. Recommendations noted. (2) Alcohol use disorder Is this a current diagnosis for this admission?: Yes Plan: Complaining of mild anxiety, denies any auditory or visual hallucinations. Continue DT precautions. (3) COPD (chronic obstructive pulmonary disease) Is this a current diagnosis for this admission?: Yes Plan: Stable and not in acute exacerbation Continue DuoNeb as needed (4) Diabetes mellitus Qualifiers: Diabetes mellitus type: type 2 Diabetes mellitus complication status: with circulatory complication Diabetes mellitus complication detail: with peripheral angiopathy without gangrene Is this a current diagnosis for this admission?: Yes Plan: History of uncontrolled diabetes. Status post right BKA and left diabetic foot. Diabetic diet, sliding scale insulin, basal insulin,, hypoglycemia protocol. Oral antidiabetic. Outpatient PCP follow-up. (5) HTN (hypertension) Is this a current diagnosis for this admission?: Yes Plan: Currently BP within acceptable limits Continue home medications (6) JENNIFER (obstructive sleep apnea) Is this a current diagnosis for this admission?: Yes Plan: Continue CPAP use nightly (7) Opioid dependence Qualifiers: Complication of substance-induced condition: uncomplicated Is this a current diagnosis for this admission?: Yes Plan: History of opiate dependency for chronic musculoskeletal pain. Resume home meds. Monitor for respiratory depression. Outpatient PCP and pain management follow-up. (8) Herpes genitalis Qualifiers: Herpes simplex infection site: other site of urogenital tract Qualified Code(s): A60.09 - Herpesviral infection of other urogenital tract Is this a current diagnosis for this admission?: Yes Plan: History of recurrent herpes genitalis. Patient is stating that about a week ago she had grouped vesicles on her left labia majora which is currently been denuded. Complaining of burning pain and itchiness. Started on acyclovir. 800 mg 3 times daily for 2 days. Patient PCP follow-up. - Time Time Spent with patient: 25-34 minutes Anticipated Discharge Disposition: Home with Home Health Anticipated Discharge Timeframe: within 48 hours
[2020-02-07 15:57] LABS: ANION GAP 7 (5-19); BLOOD UREA NITROGEN 8 mg/dL (7-20); CALCIUM 8.8 mg/dL (8.4-10.2); CARBON DIOXIDE 26 mmol/L (22-30); CHLORIDE 100 mmol/L (98-107); GLUCOSE 97 mg/dL (75-110); POTASSIUM 3.7 mmol/L (3.6-5.0)
[2020-02-07] MEDS: TRAZODONE HCL 50 MG TABLET PO SCH (22:03)
[2020-02-08] MEDS: OXYCODONE HCL IR 5 MG TABLET PO PRN ×6 (01:03→23:10)
[2020-02-08] MEDS: CEFEPIME HCL 2 GM in DEXTROSE 5%-WATER 50 ML IV SCH ×2 (05:08→17:50)
[2020-02-08] MEDS: PANTOPRAZOLE SODIUM 40 MG TABLET.DR PO SCH (05:08)
[2020-02-08] MEDS: LORAZEPAM INJ 2 MG/1 ML VIAL IV PRN ×4 (05:41→20:43)
[2020-02-08] MEDS: LURASIDONE HCL 40 MG TABLET PO SCH (07:40)
[2020-02-08] MEDS: INSULIN REG, HUMAN 100 UNIT/ML 3 ML VIAL (PYX) SUBCUT SCH ×4 (07:41→21:55)
[2020-02-08 08:10] LABS: ABSOLUTE EOSINOPHILS # (AUTO) 0.1 10^3/uL (0.0-0.6); ABSOLUTE LYMPHOCYTES (AUTO) 1.3 10^3/uL (0.5-4.7); ABSOLUTE MONOCYTES (AUTO) 0.5 10^3/uL (0.1-1.4); ABSOLUTE NEUT (AUTO) 3.6 10^3/uL (1.7-8.2); BASOPHILS % (AUTO) 0.5 % (0-2); EOSINOPHILS % (AUTO) 2.6 % (0-6); HEMATOCRIT 23.4 % (36.0-47.0); LYMPHOCYTES % (AUTO) 24.1 % (13-45); MEAN CORPUSCULAR HGB CONC 33.8 g/dL (32.0-36.0); MEAN CORPUSCULAR VOLUME 98 fl (80-97); MONOCYTES % (AUTO) 8.6 % (3-13); PLATELET COUNT 115 10^3/uL (150-450); RED CELL DISTRIBUTION WIDTH 19.1 % (11.5-14.0); SEGMENTED NEUTROPHILS % (AUTO) 64.2 % (42-78); TOTAL CELLS COUNTED % (AUTO) 100 %; WHITE BLOOD COUNT 5.6 10^3/uL (4.0-10.5)
[2020-02-08 08:14] LABS: HEMOGLOBIN 7.9 g/dL (12.0-15.5)
[2020-02-08 08:17] LABS: ANION GAP 5 (5-19); BLOOD UREA NITROGEN 9 mg/dL (7-20); CALCIUM 8.9 mg/dL (8.4-10.2); CARBON DIOXIDE 25 mmol/L (22-30); CHLORIDE 103 mmol/L (98-107); GLUCOSE 118 mg/dL (75-110); POTASSIUM 3.6 mmol/L (3.6-5.0)
[2020-02-08] MEDS: MAGNESIUM OXIDE 400 MG TABLET PO SCH (09:19)
[2020-02-08] MEDS: ESCITALOPRAM OXALATE 10 MG TABLET PO SCH (09:19)
[2020-02-08] MEDS: BUSPIRONE HCL 10 MG TABLET PO SCH ×2 (09:20→17:49)
[2020-02-08] MEDS: METFORMIN HCL 500 MG TABLET PO SCH ×2 (09:20→17:50)
[2020-02-08] MEDS: FUROSEMIDE 40 MG TABLET PO SCH (09:20)
[2020-02-08] MEDS: LINEZOLID 600 MG/300 ML RTUPB IV SCH ×2 (09:21→21:59)
[2020-02-08] MEDS: ENOXAPARIN SODIUM INJ 40 MG/0.4 ML DISP.SYRIN SUBCUT SCH (09:22)
[2020-02-08] MEDS: NYSTATIN TOPICAL POWDER 15 GM TP SCH ×2 (09:27→22:01)
--- NOTE | 2020-02-08 11:24 | PDOC PROGRESS REPORT ---
Subjective Date:: 02/08/20 Reason For Visit: OSTEOMYELITIS Physical Exam Vital Signs: Temp Pulse Resp BP Pulse Ox 98.4 F 81 17 111/61 96 02/08/20 10:00 02/08/20 07:39 02/08/20 07:39 02/08/20 07:39 02/08/20 07:39 Intake & Output 02/07/20 02/08/20 02/09/20 06:59 06:59 06:59 Intake Total 2662055 Output Total 50 Balance 2612055 Weight 85.5 kg 85.5 kg Results Laboratory Results: 02/08/20 07:27 02/08/20 07:27 02/07/20 02/07/20 02/08/20 11:44 15:02 07:27 WBC 5.6 RBC 2.40 L Hgb 7.9 L Hct 23.4 L MCV 98 H MCH 33.0 MCHC 33.8 RDW 19.1 H Plt Count 115 L Seg Neutrophils % 64.2 Sodium 132.7 L Potassium 3.7 Chloride 100 Carbon Dioxide 26 Anion Gap 7 BUN 8 Creatinine 0.73 Est GFR ( Amer) > 60 Glucose 97 Calcium 8.8 Magnesium 1.6 02/08/20 07:27 WBC RBC Hgb Hct MCV MCH MCHC RDW Plt Count Seg Neutrophils % Sodium 132.7 L Potassium 3.6 Chloride 103 Carbon Dioxide 25 Anion Gap 5 BUN 9 Creatinine 0.57 Est GFR ( Amer) > 60 Glucose 118 H Calcium 8.9 Magnesium Impressions: Foot X-Ray 02/03/20 23:52 IMPRESSION: Indeterminate findings associated with the distal fifth metatarsal as above. If the patient has not had surgery then the findings are consistent with a likely pathologic fracture of the distal fifth metatarsal neck related to changes of osteomyelitis with also changes concerning for osteomyelitis involving the base of the fifth proximal phalanx. If the patient has had surgery findings would still be worrisome for infection/osteomyelitis involving the distal fifth metatarsal and base of the fifth proximal phalanx. Please correlate with history and physical exam and if clinically indicated MRI could better evaluate. Assessment & Plan - Diagnosis (1) Diabetes mellitus Qualifiers: Diabetes mellitus type: type 2 Diabetes mellitus complication status: with circulatory complication Diabetes mellitus complication detail: with peripheral angiopathy without gangrene Is this a current diagnosis for this admission?: Yes (2) Osteomyelitis of left foot Qualifiers: Osteomyelitis type: chronic, with draining sinus Qualified Code(s): M86.472 - Chronic osteomyelitis with draining sinus, left ankle and foot Is this a current diagnosis for this admission?: Yes - Time Anticipated Discharge Disposition: Home with Home Health Anticipated Discharge Timeframe: unknown - Plan Summary Plan Summary: 49-year-old female status post amputation of the left fifth toe and metatarsal. The foot appears swollen today, with some erythema in the area of the incision. I have instructed the patient to keep the foot elevated above the level of the heart. Continue with antibiotics. I discussed the case with Dr. Talley. Dressing changes to foot twice daily. Surgery will continue to follow.
[2020-02-08 12:18] LABS: APPEARANCE,URINE CLEAR; BILIRUBIN,URINE NEGATIVE (NEGATIVE); COLOR,URINE COLORLESS; GLUCOSE, URINE NEGATIVE (NEGATIVE); KETONES,URINE NEGATIVE (NEGATIVE); LEUKOCYTE ESTERASE,URINE NEGATIVE (NEGATIVE); NITRITE,URINE NEGATIVE (NEGATIVE); PROTEIN,URINE NEGATIVE (NEGATIVE); URINE SPECIFIC GRAVITY 1.005; UROBILINOGEN,URINE NEGATIVE mg/dL (<2.0)
--- NOTE | 2020-02-08 14:06 | PDOC PROGRESS REPORT ---
Subjective Date:: 02/08/20 Subjective:: As per admitting physician JOVANNI RENTERIA is a 49 year old female diabetes mellitus, COPD, sleep apnea, hypertension, right below-knee amputation and alcohol abuse who presents with 2 weeks duration of a nonhealing wound on the left lateral side of her foot. Patient was given a dose of Ativan for anxiety 10 minutes prior to my encounter and she was very sleepy but arousable. She is unable to give detailed answer to most questions. She states that she was told to come to the emergency by her primary care doctor. She denies fever, chills, nausea, vomiting, diarrhea or any change in her bowel or urinary habits. She denies any history of trauma. 02/03/2020. Saw patient this morning comfortably sitting up in distress, complaining of left foot pain, being anxious and asking for home medication to be reconciled. Denies any fever, chills, nausea, vomiting. Patient is scheduled to have an I&D of his left lower extremity tomorrow by surgery. 02/06/2020. No acute events overnight. Saw patient just after coming back from the OR, still lethargic and sleepy likely due to anesthesia, not appear to be in any apparent distress, easily arousable and cooperative with physical examination, asking when she can eat. 02/07/2020. No acute events overnight. Saw patient this morning in no apparent distress, complaining of left foot and back pain. Denies any fever, chills, chest pain, shortness of breath. Surgery has been following. Possible discharge in 1 to 2 days. 02/08/2020. Complaining of left foot and back pain. Denies any fever, chills, chest pain, shortness of breath. Surgery has been following. Possible discharge in 1 to 2 days. Reason For Visit: OSTEOMYELITIS Physical Exam Vital Signs: Temp Pulse Resp BP Pulse Ox 98.1 F 74 18 109/61 96 02/08/20 11:42 02/08/20 11:42 02/08/20 11:42 02/08/20 11:42 02/08/20 11:42 Intake & Output 02/07/20 02/08/20 02/09/20 06:59 06:59 06:59 Intake Total 2667 2055 120 Output Total 50 Balance 2617 2055 120 Weight 85.5 kg 85.5 kg General appearance: PRESENT: no acute distress, well-developed, well-nourished Head exam: PRESENT: atraumatic, normocephalic Neck exam: ABSENT: carotid bruit, JVD, lymphadenopathy, thyromegaly Respiratory exam: PRESENT: clear to auscultation kristina. ABSENT: rales, rhonchi, wheezes Cardiovascular exam: PRESENT: RRR. ABSENT: diastolic murmur, rubs, systolic murmur GI/Abdominal exam: PRESENT: normal bowel sounds, soft. ABSENT: distended, guarding, mass, organolmegaly, rebound, tenderness Gentrourinary exam: PRESENT: other - Left foot wound looks clean, there is e rythema around the wound with mild swelling, no discharge. Extremities exam: PRESENT: full ROM. ABSENT: calf tenderness, clubbing, pedal edema Neurological exam: PRESENT: alert, awake, oriented to person, oriented to place, oriented to time, oriented to situation, CN II-XII grossly intact. ABSENT: motor sensory deficit Results Laboratory Results: 02/08/20 07:27 02/08/20 07:27 02/07/20 02/08/20 02/08/20 15:02 07:27 07:27 WBC 5.6 RBC 2.40 L Hgb 7.9 L Hct 23.4 L MCV 98 H MCH 33.0 MCHC 33.8 RDW 19.1 H Plt Count 115 L Seg Neutrophils % 64.2 Sodium 132.7 L 132.7 L Potassium 3.7 3.6 Chloride 100 103 Carbon Dioxide 26 25 Anion Gap 7 5 BUN 8 9 Creatinine 0.73 0.57 Est GFR ( Amer) > 60 > 60 Glucose 97 118 H Calcium 8.8 8.9 Urine Color Urine Appearance Urine pH Ur Specific [place] Urine Protein Urine Glucose (UA) Urine Ketones Urine Blood Urine Nitrite Ur Leukocyte Esterase Urine WBC (Auto) 02/08/20 11:42 WBC RBC Hgb Hct MCV MCH MCHC RDW Plt Count Seg Neutrophils % Sodium Potassium Chloride Carbon Dioxide Anion Gap BUN Creatinine Est GFR ( Amer) Glucose Calcium Urine Color COLORLESS Urine Appearance CLEAR Urine pH 6.0 Ur Specific [place] 1.005 Urine Protein NEGATIVE Urine Glucose (UA) NEGATIVE Urine Ketones NEGATIVE Urine Blood NEGATIVE Urine Nitrite NEGATIVE Ur Leukocyte Esterase NEGATIVE Urine WBC (Auto) 0 Impressions: Foot X-Ray 02/03/20 23:52 IMPRESSION: Indeterminate findings associated with the distal fifth metatarsal as above. If the patient has not had surgery then the findings are consistent with a likely pathologic fracture of the distal fifth metatarsal neck related to changes of osteomyelitis with also changes concerning for osteomyelitis involving the base of the fifth proximal phalanx. If the patient has had surgery findings would still be worrisome for infection/osteomyelitis involving the distal fifth metatarsal and base of the fifth proximal phalanx. Please correlate with history and physical exam and if clinically indicated MRI could better evaluate. Assessment and Plan - Diagnosis (1) Osteomyelitis of left foot Qualifiers: Osteomyelitis type: chronic, with draining sinus Qualified Code(s): M86.472 - Chronic osteomyelitis with draining sinus, left ankle and foot Is this a current diagnosis for this admission?: Yes Plan: Day 3 status post left fifth metatarsal amputation. Patient presented with a nonhealing wound Osteomyelitis likely secondary to diabetes. Has no systemic signs of toxicity X-ray of the foot showed findings consistent with pathologic fracture of the fifth metatarsal with signs of osteomyelitis ESR and C-reactive protein elevated Day 6 IV antibiotics. Day 6 IV linezolid. Day 6 IV cefepime. Surgery consulted. Recommendations noted. (2) Alcohol use disorder Is this a current diagnosis for this admission?: Yes Plan: Complaining of mild anxiety, denies any auditory or visual hallucinations. Continue DT precautions. (3) COPD (chronic obstructive pulmonary disease) Is this a current diagnosis for this admission?: Yes Plan: Stable and not in acute exacerbation Continue DuoNeb as needed (4) Diabetes mellitus Qualifiers: Diabetes mellitus type: type 2 Diabetes mellitus complication status: with circulatory complication Diabetes mellitus complication detail: with peripheral angiopathy without gangrene Is this a current diagnosis for this admission?: Yes Plan: History of uncontrolled diabetes. Status post right BKA and left diabetic foot. Diabetic diet, sliding scale insulin, basal insulin,, hypoglycemia protocol. Oral antidiabetic. Outpatient PCP follow-up. (5) HTN (hypertension) Is this a current diagnosis for this admission?: Yes Plan: Currently BP within acceptable limits Continue home medications (6) JENNIFER (obstructive sleep apnea) Is this a current diagnosis for this admission?: Yes Plan: Continue CPAP use nightly (7) Opioid dependence Qualifiers: Complication of substance-induced condition: uncomplicated Is this a current diagnosis for this admission?: Yes Plan: History of opiate dependency for chronic musculoskeletal pain. Resume home meds. Monitor for respiratory depression. Outpatient PCP and pain management follow-up. (8) Herpes genitalis Qualifiers: Herpes simplex infection site: other site of urogenital tract Qualified Code(s): A60.09 - Herpesviral infection of other urogenital tract Is this a current diagnosis for this admission?: Yes Plan: History of recurrent herpes genitalis. Patient is stating that about a week ago she had grouped vesicles on her left labia majora which is currently been denuded. Complaining of burning pain and itchiness. Started on acyclovir. 800 mg 3 times daily for 2 days. Patient PCP follow-up. - Time Time Spent with patient: 35 or more minutes Anticipated Discharge Disposition: Home with Home Health Anticipated Discharge Timeframe: within 48 hours
[2020-02-08] MEDS: MORPHINE SULFATE 10 MG/ML INJ IV PRN (16:29)
[2020-02-08] MEDS: TRAZODONE HCL 50 MG TABLET PO SCH (21:59)
[2020-02-09] MEDS: MORPHINE SULFATE 10 MG/ML INJ IV PRN (01:23)
[2020-02-09] MEDS: LORAZEPAM INJ 2 MG/1 ML VIAL IV PRN ×2 (02:33→07:41)
[2020-02-09] MEDS: OXYCODONE HCL IR 5 MG TABLET PO PRN ×2 (04:17→09:37)
[2020-02-09] MEDS: CEFEPIME HCL 2 GM in DEXTROSE 5%-WATER 50 ML IV SCH (05:05)
[2020-02-09] MEDS: PANTOPRAZOLE SODIUM 40 MG TABLET.DR PO SCH (05:05)
[2020-02-09] MEDS: INSULIN REG, HUMAN 100 UNIT/ML 3 ML VIAL (PYX) SUBCUT SCH (07:31)
[2020-02-09] MEDS: LURASIDONE HCL 40 MG TABLET PO SCH (07:34)
[2020-02-09] MEDS: ENOXAPARIN SODIUM INJ 40 MG/0.4 ML DISP.SYRIN SUBCUT SCH (09:11)
--- NOTE | 2020-02-09 09:12 | PDOC PROGRESS REPORT ---
Subjective Date:: 02/09/20 Subjective:: Patient comfortable Reason For Visit: OSTEOMYELITIS Physical Exam Vital Signs: Temp Pulse Resp BP Pulse Ox 98.5 F 82 16 102/56 L 96 02/08/20 23:23 02/08/20 23:23 02/08/20 23:23 02/08/20 23:23 02/08/20 23:23 Intake & Output 02/08/20 02/09/20 02/10/20 06:59 06:59 06:59 Intake Total 2055 2081 Output Total 900 Balance 2055 118 Weight 85.5 kg 80.9 kg General appearance: PRESENT: no acute distress Extremities exam: PRESENT: other - Left foot = diffuse edema, lateral aspect wound partially closed with sutures with wound clean, dry, and intact; distal aspect of the wound is open and appears to be granulating Results Laboratory Results: 02/08/20 07:27 02/08/20 07:27 02/08/20 11:42 Urine Color COLORLESS Urine Appearance CLEAR Urine pH 6.0 Ur Specific [place] 1.005 Urine Protein NEGATIVE Urine Glucose (UA) NEGATIVE Urine Ketones NEGATIVE Urine Blood NEGATIVE Urine Nitrite NEGATIVE Ur Leukocyte Esterase NEGATIVE Urine WBC (Auto) 0 02/04/20 04:38 Blood Blood Culture - Final NO GROWTH IN 5 DAYS 02/04/20 01:14 Blood Blood Culture - Final NO GROWTH IN 5 DAYS Impressions: Foot X-Ray 02/03/20 23:52 IMPRESSION: Indeterminate findings associated with the distal fifth metatarsal as above. If the patient has not had surgery then the findings are consistent with a likely pathologic fracture of the distal fifth metatarsal neck related to changes of osteomyelitis with also changes concerning for osteomyelitis involving the base of the fifth proximal phalanx. If the patient has had surgery findings would still be worrisome for infection/osteomyelitis involving the distal fifth metatarsal and base of the fifth proximal phalanx. Please correlate with history and physical exam and if clinically indicated MRI could better evaluate. Assessment & Plan - Diagnosis (1) Osteomyelitis of left foot Qualifiers: Osteomyelitis type: chronic, with draining sinus Qualified Code(s): M86.472 - Chronic osteomyelitis with draining sinus, left ankle and foot - Time Anticipated Discharge Disposition: Home, Self Care Anticipated Discharge Timeframe: within 24 hours - Plan Summary Plan Summary: Assessment: Postoperative day #3 following ray amputation of the left fifth toe Physical exam shows that the proximal wound is partially closed clean, dry, and intact Distal half of the wound is open and granulating Moderate edema of the left foot Plan: Patient be discharged to home on oral antibiotics for 1 week (Augmentin, Bactrim, tetracyclines ( Follow-up with Dr. Hall in 2 weeks Wet-to-dry dressing changes twice a day Home health for dressing change assistance I will sign off. Please call me with questions
[2020-02-09] MEDS: METFORMIN HCL 500 MG TABLET PO SCH (09:36)
[2020-02-09] MEDS: LINEZOLID 600 MG/300 ML RTUPB IV SCH (09:36)
[2020-02-09] MEDS: MAGNESIUM OXIDE 400 MG TABLET PO SCH (09:36)
[2020-02-09] MEDS: BUSPIRONE HCL 10 MG TABLET PO SCH (09:36)
[2020-02-09] MEDS: ESCITALOPRAM OXALATE 10 MG TABLET PO SCH (09:37)
[2020-02-09] MEDS: FUROSEMIDE 40 MG TABLET PO SCH (09:38)
[2020-02-09 10:23] VITALS: BP 101/54
--- NOTE | 2020-02-09 16:24 | PDOC DISCHARGE SUMMARY ---
Impression - Admit/DC Date/PCP Admission Date/Primary Care Provider: 02/04/20 06:11 NATALIIA PAN, Discharge Date: 02/09/20 - Discharge Diagnosis (1) Osteomyelitis of left foot Is this a current diagnosis for this admission?: Yes (2) Alcohol use disorder Is this a current diagnosis for this admission?: Yes (3) COPD (chronic obstructive pulmonary disease) Is this a current diagnosis for this admission?: Yes (4) Diabetes mellitus Is this a current diagnosis for this admission?: Yes (5) HTN (hypertension) Is this a current diagnosis for this admission?: Yes (6) JENNIFER (obstructive sleep apnea) Is this a current diagnosis for this admission?: Yes (7) Opioid dependence Is this a current diagnosis for this admission?: Yes (8) Herpes genitalis Is this a current diagnosis for this admission?: Yes - Additional Information Resuscitation Status: Full Code Discharge Diet: Diabetic Discharge Activity: Activity As Tolerated Referrals: WOUND CARE [Outside] - 02/16/20 3:00 pm RICCARDO HALL MD [ACTIVE STAFF] - (02/05 S/P LEFT FIFTH TOE FOLLOW UP IN 7 TO 10 DAYS ) Prescriptions: Amoxicillin/Potassium Clav [Augmentin 875-125 Tablet] 1 tab PO Q12 7 Days #14 tablet Home Medications: Escitalopram Oxalate [Lexapro] 40 mg PO DAILY 01/10/18 Buspirone HCl [Buspar 10 mg Tablet] 7.5 mg PO BID 07/28/19 Ergocalciferol (Vitamin D2) [Drisdol 50,000 unit (1.25MG) Capsule] 50,000 unit PO FR@1000 07/28/19 Furosemide [Lasix 40 mg Tablet] 40 mg PO DAILY 10/11/19 Lurasidone HCl [Latuda] 20 mg PO DAILY 10/11/19 Trazodone HCl 150 mg PO QHS 10/11/19 Collagenase Clostridium Hist. [Santyl Ointment 30 gm] 1 applic TOP DAILY 02/04/20 Metformin HCl [Glucophage 500 mg Tablet] 1,000 mg PO BID 02/04/20 Oxycodone HCl [Oxy-Ir 5 mg Tablet] 10 mg PO Q4HP PRN 02/04/20 Oxycodone Myristate [Xtampza ER] 13.5 mg PO Q12 02/04/20 Amoxicillin/Potassium Clav [Augmentin 875-125 Tablet] 1 tab PO Q12 7 Days #14 tablet 02/09/20 History of Present Illiness History of Present Illness: As per admitting physician JOVANNI RENTERIA is a 49 year old female diabetes mellitus, COPD, sleep apnea, hypertension, right below-knee amputation and alcohol abuse who presents with 2 weeks duration of a nonhealing wound on the left lateral side of her foot. Patient was given a dose of Ativan for anxiety 10 minutes prior to my encounter and she was very sleepy but arousable. She is unable to give detailed answer to most questions. She states that she was told to come to the emergency by her primary care doctor. She denies fever, chills, nausea, vomiting, diarrhea or any change in her bowel or urinary habits. She denies any history of trauma. Hospital Course Hospital Course: (1) Osteomyelitis of left foot Day 4 status post left fifth metatarsal amputation. Patient presented with a nonhealing wound Osteomyelitis likely secondary to diabetes. Has no systemic signs of toxicity X-ray of the foot showed findings consistent with pathologic fracture of the fifth metatarsal with signs of osteomyelitis ESR and C-reactive protein elevated Received 7 days of IV antibiotics. Received 7 days of IV linezolid. Received 7 days of IV cefepime. Unfortunately no wound culture was obtained. Urine and blood culture both negative. Was discharged on p.o. Augmentin twice daily for another 7 days. Discharged on home health, wound care, and follow-up with Dr. Hall within 2 weeks. (2) Alcohol use disorder Did not have any withdrawal symptoms while in the hospital. Was initiated on DT precautions. (3) COPD (chronic obstructive pulmonary disease) Stable and not in acute exacerbation Continued DuoNeb as needed Advised to resume home meds upon discharge. (4) Diabetes mellitus Currently controlled, on Metformin. Hemoglobin A1c within the range. History of uncontrolled diabetes. Status post right BKA and left diabetic foot. Was a started on diabetic diet, sliding scale insulin, basal insulin,, hypoglycemia protocol. Advised to resume oral antidiabetic. Outpatient PCP follow-up. (5) HTN (hypertension) Currently BP within acceptable limits Continued home medications (6) JENNIFER (obstructive sleep apnea) Continued CPAP use nightly (7) Opioid dependence History of opiate dependency for chronic musculoskeletal pain. Resumed home meds. Monitored for respiratory depression. Outpatient PCP and pain management follow-up. (8) Herpes genitalis Patient reporting moderate improvement. Patient was noted to have denuded vesicle on the left labia majora. Burning and itchiness improved. Received acyclovir 800 mg 3 times daily for 2 days. Outpatient PCP follow-up. Physical Exam Vital Signs: Temp Pulse Resp BP Pulse Ox 98.9 F 74 18 101/54 L 95 02/09/20 10:21 02/09/20 10:21 02/09/20 10:21 02/09/20 10:21 02/09/20 10:21 Intake & Output 02/08/20 02/09/20 02/10/20 06:59 06:59 06:59 Intake Total 2055 2081 300 Output Total 900 Balance 2055 1182 300 Weight 85.5 kg 80.9 kg General appearance: PRESENT: no acute distress, well-developed, well-nourished Head exam: PRESENT: atraumatic, normocephalic Neck exam: ABSENT: carotid bruit, JVD, lymphadenopathy, thyromegaly Respiratory exam: PRESENT: clear to auscultation kristina. ABSENT: rales, rhonchi, wheezes GI/Abdominal exam: PRESENT: normal bowel sounds, soft. ABSENT: distended, guarding, mass, organolmegaly, rebound, tenderness Extremities exam: PRESENT: full ROM, other - Left lateral foot wound partially closed and clean, dry and intact, no sign of active infection or discharge. Granulation tissue noted. Right BKA.. ABSENT: calf tenderness, clubbing, pedal edema Neurological exam: PRESENT: alert, awake, oriented to person, oriented to place, oriented to time, oriented to situation, CN II-XII grossly intact. ABSENT: motor sensory deficit Results Laboratory Results: WBC 5.6 10^3/uL (4.0-10.5) 02/08/20 07: RBC 2.40 10^6/uL (3.72-5.28) L 02/08/20 07:27 Hgb 7.9 g/dL (12.0-15.5) L 02/08/20 07:27 Hct 23.4 % (36.0-47.0) L 02/08/20 07:27 MCV 98 fl (80-97) H 02/08/20 07: MCH 33.0 pg (27.0-33.4) 02/08/20 07:27 MCHC 33.8 g/dL (32.0-36.0) 02/08/20 07:27 RDW 19.1 % (11.5-14.0) H 02/08/20 07:27 Plt Count 115 10^3/uL (150-450) L 02/08/20 07:27 Lymph % (Auto) 24.1 % (13-45) 02/08/20 07:27 [place] % (Auto) 8.6 % (3-13) 02/08/20 07:27 Eos % (Auto) 2.6 % (0-6) 02/08/20 07: Baso % (Auto) 0.5 % (0-2) 02/08/20 07:27 Absolute Neuts (auto) 3.6 10^3/uL (1.7-8.2) 02/08/20 07:27 Absolute Lymphs (auto) 1.3 10^3/uL (0.5-4.7) 02/08/20 07:27 Absolute Monos (auto) 0.5 10^3/uL (0.1-1.4) 02/08/20 07:27 Absolute Eos (auto) 0.1 10^3/uL (0.0-0.6) 02/08/20 07:27 Absolute Basos (auto) 0.0 10^3/uL (0.0-0.2) 02/08/20 07:27 Seg Neutrophils % 64.2 % (42-78) 02/08/20 07:27 ESR 86 mm/hr (0-20) H 02/04/20 01:14 PT 16.4 SEC (11.4-15.4) H 02/06/20 05:35 INR 1.30 02/06/20 05:35 Sodium 132.7 mmol/L (137-145) L 02/08/20 07:27 Potassium 3.6 mmol/L (3.6-5.0) 02/08/20 07:27 Chloride 103 mmol/L (98-107) 02/08/20 07:27 Carbon Dioxide 25 mmol/L (22-30) 02/08/20 07:27 Anion Gap 5 (5-19) 02/08/20 07:27 BUN 9 mg/dL (7-20) 02/08/20 07:27 Creatinine 0.57 mg/dL (0.52-1.25) 02/08/20 07:27 Est GFR ( Amer) > 60 (>60) 02/08/20 07:27 Est GFR (MDRD) Non-Af > 60 (>60) 02/08/20 07:27 Glucose 118 mg/dL (75-110) H 02/08/20 07:27 POC Glucose 119 mg/dL (70-110) H 02/09/20 06:30 Lactic Acid 1.6 mmol/L (0.7-2.1) 02/04/20 01:14 Calcium 8.9 mg/dL (8.4-10.2) 02/08/20 07:27 Magnesium 1.6 mg/dL (1.6-2.3) 02/07/20 11:44 Total Bilirubin 1.1 mg/dL (0.2-1.3) 02/06/20 05:35 Direct Bilirubin 0.3 mg/dL (0.0-0.4) 02/06/20 05:35 Neonat Total Bilirubin Not Reportable 02/06/20 05:35 Neonat Direct Bilirubin Not Reportable 02/06/20 05:35 Neonat Indirect Bili Not Reportable 02/06/20 05:35 AST 39 U/L (14-36) H 02/06/20 05:35 ALT 11 U/L (<35) 02/06/20 05:35 Alkaline Phosphatase 216 U/L (38-126) H 02/06/20 05:35 C-Reactive Protein 10.8 mg/L (<10.0) H 02/04/20 01:14 Total Protein 6.4 g/dL (6.3-8.2) 02/06/20 05:35 Albumin 2.8 g/dL (3.5-5.0) L 02/06/20 05:35 Urine Color COLORLESS 02/08/20 11:42 Urine Appearance CLEAR 02/08/20 11:42 Urine pH 6.0 (5.0-9.0) 02/08/20 11:42 Ur Specific [place] 1.005 02/08/20 11:42 Urine Protein NEGATIVE mg/dL (NEGATIVE) 02/08/20 11:42 Urine Glucose (UA) NEGATIVE mg/dL (NEGATIVE) 02/08/20 11:42 Urine Ketones NEGATIVE mg/dL (NEGATIVE) 02/08/20 11:42 Urine Blood NEGATIVE (NEGATIVE) 02/08/20 11:42 Urine Nitrite NEGATIVE (NEGATIVE) 02/08/20 11:42 Urine Bilirubin NEGATIVE (NEGATIVE) 02/08/20 11:42 Urine Urobilinogen NEGATIVE mg/dL (<2.0) 02/08/20 11:42 Ur Leukocyte Esterase NEGATIVE (NEGATIVE) 02/08/20 11:42 Urine WBC (Auto) 0 /HPF 02/08/20 11:42 Squamous Epi Cells Auto 1 /HPF 02/08/20 11:42 Urine Mucus (Auto) RARE /LPF 02/08/20 11:42 Urine Ascorbic Acid NEGATIVE (NEGATIVE) 02/08/20 11:42 Influenza A (RT-PCR) NEGATIVE (NEGATIVE) 02/05/20 12:47 Influenza B (RT-PCR) NEGATIVE (NEGATIVE) 02/05/20 12:47 RSV (RT-PCR) NEGATIVE (NEGATIVE) 02/05/20 12:47 SARS-CoV-2 Rap RNA(RT-PCR) NEGATIVE (NEGATIVE) 02/05/20 12:47 Impressions: Foot X-Ray 02/03/20 23:52 IMPRESSION: Indeterminate findings associated with the distal fifth metatarsal as above. If the patient has not had surgery then the findings are consistent with a likely pathologic fracture of the distal fifth metatarsal neck related to changes of osteomyelitis with also changes concerning for osteomyelitis involving the base of the fifth proximal phalanx. If the patient has had surgery findings would still be worrisome for infection/osteomyelitis involving the distal fifth metatarsal and base of the fifth proximal phalanx. Please correlate with history and physical exam and if clinically indicated MRI could better evaluate. Stroke Is this a Stroke Patient?: No Acute Heart Failure Is this a Heart Failure Patient?: No
== END 2020-02-09 12:31 | disposition home health service (06) | DRG 617 ==
LOC: ER 21:00 → EH 02-04 06:11 → 4S 02-04 08:18
PROVIDERS: ADMIT Student in an Organized Health Care Education/Training Program; ATTEND Internal Medicine
PROC: HZ2ZZZZ Detoxification Services for Substance Abuse Treatment (ICD-10-PCS; 2020-02-04)
PROC: 0Y6N0ZF Detachment at Left Foot, Partial 5th Ray, Open Approach (ICD-10-PCS; principal; 2020-02-06 08:00)
PROC: 3E02340 Introduction of Influenza Vaccine into Muscle, Percutaneous Approach (ICD-10-PCS; 2020-02-09)
DX: E11.69 Type 2 diabetes mellitus with other specified complication (principal); F11.20 Opioid dependence, uncomplicated; M86.472 Chronic osteomyelitis with draining sinus, left ankle and foot; I10 Essential (primary) hypertension; G47.33 Obstructive sleep apnea (adult) (pediatric); A60.09 Herpesviral infection of other urogenital tract; J44.9 Chronic obstructive pulmonary disease, unspecified; E11.610 Type 2 diabetes mellitus with diabetic neuropathic arthropathy; F17.210 Nicotine dependence, cigarettes, uncomplicated; F32.9 Major depressive disorder, single episode, unspecified; Z23 Encounter for immunization; F10.20 Alcohol dependence, uncomplicated; Z20.828 Contact with and (suspected) exposure to other viral communicable diseases; Z79.899 Other long term (current) drug therapy; Z89.511 Acquired absence of right leg below knee; Z88.2 Allergy status to sulfonamides; Z88.3 Allergy status to other anti-infective agents; Z91.030 Bee allergy status; Z91.038 Other insect allergy status; Z79.4 Long term (current) use of insulin
CPT/HCPCS: 01480; 36415; 80048; 80053; 81001; 82962; 83605; 83735; 85025; 85027; 85610; 85652; 86140; 87040; 87086; 88305; 88311; 90471; 90686; 93005; 93010; 96365; 96375; 99285; 0241U; C9803; G0008; J0692; J1650; J1815; J2020; J2060; J2250; J2270; J2405; J2704; J3010; J3475; J3490; J7060